=== PATIENT | female | born 1965 | race Caucasian/White ===

== ENCOUNTER 2018-02-03 15:30 | Outpatient (RCR) | payer BC, SELFPAY ==
--- NOTE | 2018-01-07 15:38 | PTTR_ITS ---
DATE: 01/07/18 SUBJECTIVE: Pt reports still feeling band of discomfort and tightness across quad group at proximal end of incision. OBJECTIVE: Manual therapy: (08754a0). STM to quad muscle starting distal and working proximal. High tone noted where pt reported feeling band. Therapeutic procedures (44552v0). * X See flow sheet: Began instruction on equipment setup for eventual transition to [facility]. No changes made to plan today due to pt's increased soreness. * X Provided skilled instruction in proper exercise performance. * X Provided skilled manual cues to facilitate proper muscle recruitment and/ or movement pattern. * X Other: Pt continued program under security trainer supervision Direct treatment time: 30 minutes Total treatment time: 50 minutes
--- NOTE | 2018-01-20 14:30 | PTTR_ITS ---
DATE: 01/20/18 SUBJECTIVE: Has been in horrible pain of 5/10 the past 10 days. Today she is finally feeling better. 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 States she has been doing her HEP, and been swimming. She canceled last week's apt , one due to pain and the other due to day camp conflict. OBJECTIVE: KX applied to all codes N/A Manual therapy: (45867d6). B knee flexion end range stretching. TF and PF mobilizations. ROM R knee: 0-120* Gait: Minimally antalgic, but worsening the more she is on her feet or with fatigue. Strength: R HS 4/5, Quad 5/5, good terminal knee extension. Proprioception: Unstable with R SLS Therapeutic procedures (15594e[]). Completed with link trainer teacher per my direction, due to length of conversation to support and supervisor counseling and guidance patient through her anxiety and symptoms. * x Self Care Training - (70064 x1): Use of ice and over counter meds for pain control. Maintain regularly scheduled strengthening to improve stability and proprioception in her knees. Modify her daily activities as needed - sit down when tired, move around if she has been stationary for a while, be realistic about her demands on her body. Reeducate the importance of strengthening maintnance and compliancy. Direct treatment time: 30 minutes Total treatment time: 30 minutes Assessment: Quin has been struggling from pain increase, clearly related to her increase in activity. This allowed for pain in her new TKR, as well as over strain to the L, old TKR. She has a history of anxiety, and this only encouraged her stress and anxiety to increase her fear that something may be wrong with her knees. After discussing her lack of impairments with her today, her steady progress, and the strain that was caused to her knees with recent activity increase, especially with her lack of compliant strengthening, these were not surprising symptoms. She is demonstrating great ROM, strength is improving, and gait is gaining. Her poor functional performance, gait antalgia, and strain only occurs when she has over done, and I anticipate that as she maintains ther ex compliancy here at the clinic she will be appropriate for discharge in one month's time. Plan: One month of ther ex focused treatment.
--- NOTE | 2018-01-29 15:30 | PTTR_ITS ---
DATE: 01/28/18 SUBJECTIVE: Quin reporting she is quite sore bilateral knees. She is tearful today. Frustrated that she continues to hurt. She has been pretty active at work, UP and down stairs, walking between buildings, she knows this is why she is sore. Manual therapy: (36021i6). Tibiofemoral joint mobs bilateral knees, stretching into knee flexion, patella glides applied on thew R, 0 to 120 degrees knee flexion bilaterally. Performed desensitization massage to the R quadricep musculature and surrounding knee cap. Therapeutic procedures (66429c1). Instruction in therex * x See flow sheet: for open/close chain LE strengthening as well as some proprioception retraining with single leg stance on uneven surfaces with good tolerance. Ends with ice for 10 mins Direct treatment time: 35 mins Total treatment time: 45 mins LB/dl
--- NOTE | 2018-02-03 16:13 | PTTR_ITS ---
DATE: 02/03/18 SUBJECTIVE: Quin stating she is much more comfortable this week. She has been tired after going back to work but less discomfort overall. OBJECTIVE: Therapeutic procedures (64816y7): Brief mobilizations applied to bilateral TF and PF joints, gentle stretching into both flexion and extension bilaterally. * X See flow sheet: For progressive open and closed chain LE strengthening exercises as noted on flow sheet. * X Provided skilled instruction in proper exercise performance: * X Provided skilled manual cues to facilitate proper muscle recruitment and/ or movement pattern: * X Other: Ends with nustep via wellness program and receipt of unattended ice and elevation bilateral knees. Direct treatment time: 35 minutes Total treatment time: 55 minutes Latisha Jhaveri, MEDICAL OFFICE SPECIALIST
== END 2018-02-05 23:59 | disposition home or self-care (01) ==
LOC: PT 15:30
PROVIDERS: PCP Family Medicine; Referring Provider Orthopaedic Surgery; Visit Provider Orthopaedic Surgery
DX: Z47.1 Aftercare following joint replacement surgery (principal); Z96.651 Presence of right artificial knee joint
CPT/HCPCS: 97110; 97140; 97535

== ENCOUNTER 2018-03-23 15:23 | Outpatient (REF) | payer BC, SELFPAY ==
[2018-03-23 16:55] LABS: Cholesterol 203 mg/dL (50-200); HDL Cholesterol 39 mg/dL (40-60); LDL CHOLESTEROL 131 mg/dL (<100); Triglyceride 227 mg/dL (30-150)
== END 2018-03-23 15:43 ==
LOC: NCHCN 15:23
PROVIDERS: PCP Family Medicine; Visit Provider Nurse Practitioner
DX: E78.5 Hyperlipidemia, unspecified (principal)
CPT/HCPCS: 80061; 83721

== ENCOUNTER 2018-04-02 10:21 | Outpatient (REF) | payer BC, SELFPAY ==
--- NOTE | 2018-04-02 08:45 | PAPFT_PTH ---
PATIENT: Quin Santana LOC: [facility] U#:[id number] AGE/SX: 52/F ROOM: RE04/02/[address]: Fiona Duran NP : 1965 BED: DIS: 04/02/2018 SPEC #: [id number] RECD: 04/02/18 12:44 STATUS: ZOHAIB RETaylor #: [id number] FARZANA: 04/02/18 08:[address]: Fiona Duran NP DEPT: [facility] Cytology RECD BY: Beatrice Richmond ENTERED: 04/02/18 12:44 SP TYPE: PAPFT OTHR DR: Bhaskar Morales Tissues: 1 - CX/ENDOCX FOR PAP SMEARS Procedures: PAP THIN PREP/UVM Screening HPV DNA PROBE Comments: [id number]
== END 2018-04-02 10:41 ==
LOC: LBN 10:21
PROVIDERS: PCP Family Medicine; Visit Provider Nurse Practitioner Women's Health
DX: Z12.4 Encounter for screening for malignant neoplasm of cervix (principal); Z11.51 Encounter for screening for human papillomavirus (HPV)
CPT/HCPCS: 88142; 87624

== ENCOUNTER 2018-04-07 00:54 | Outpatient (CLI) | payer BC, SELFPAY ==
--- NOTE | 2018-04-07 08:10 | DI.MAMMO_ITS ---
SYMPTOMS/DIAGNOSIS: SCREENING, Z12.39 MAMMOGRAMS: Mammograms were interpreted according to the usual protocol including computer analysis with CAD system, tomosynthesis and C view imaging. An asymmetric density in the lateral portion of the left breast in comparison with the previous images suggests the possibility of interval development of a region of nodularity or regions of nodularity. Also, on the mediolateral image of the right breast, nodule in the lateral breast tissue could not be entirely excluded. Further evaluation with a spot compression view of bilateral breasts is recommended. SUMMARY: Category 0. Breast density category C. MQSA ASSESSMENT OF FINDINGS: Incomplete: Needs additional imaging evaluation. Category 0. Patient will receive a letter notifying them of these results. Bi-RADS category C. The breasts are heterogeneously dense, which may obscure small masses.
== END 2018-04-07 01:14 ==
PROVIDERS: PCP Family Medicine; Visit Provider Nurse Practitioner
DX: Z12.31 Encounter for screening mammogram for malignant neoplasm of breast (principal); R92.8 Other abnormal and inconclusive findings on diagnostic imaging of breast
CPT/HCPCS: 77063; 77067

== ENCOUNTER 2018-04-20 00:22 | Outpatient (CLI) | payer BC, SELFPAY ==
--- NOTE | 2018-04-20 09:04 | DI.COMBO_ITS ---
SYMPTOMS/DIAGNOSIS: F/U ABNORMAL MAMMO, ? NODULARITY BILATERAL ADDITIONAL VIEWS AND BILATERAL BREAST ULTRASOUND: Additional images are interpreted according to the usual protocol including tomosynthesis and 2D imaging. ADDITIONAL VIEWS OF THE RIGHT BREAST AND RIGHT BREAST ULTRASOUND: Additional views of the right breast fail to show a persistent discrete mass. A right breast ultrasound was performed. The upper inner and upper outer quadrants were evaluated sonographically. No cystic or solid masses are seen. Breast density B. IMPRESSION: No evidence for malignancy. Yearly mammography is recommended on the right breast. Category 1. ADDITIONAL VIEWS AND ULTRASOUND OF THE LEFT BREAST: Additional views of the left breast again show a nodular area in the outer left breast on the craniocaudad view. No associated microcalcifications are seen. It has a similar appearance compared to the prior examinations. A left breast ultrasound was performed. The upper outer and upper inner quadrants were evaluated sonographically. No cystic or solid masses are seen sonographically. IMPRESSION: No definite evidence for malignancy. A six-month follow-up left mammogram is requested for reevaluation. Category 3, breast density B. These findings were discussed with the patient on the date of the examination. MQSA ASSESSMENT OF FINDINGS: Probably benign. Six month follow-up recommended. Category 3. Patient will receive a letter notifying them of these results. MQSA ASSESSMENT OF FINDINGS: Negative. Category 1. Patient will receive a letter notifying them of these results. BI-RADS category B. There are scattered areas of fibroglandular density.
== END 2018-04-20 00:42 ==
PROVIDERS: PCP Family Medicine; Visit Provider Nurse Practitioner
DX: Z12.31 Encounter for screening mammogram for malignant neoplasm of breast (principal); R92.8 Other abnormal and inconclusive findings on diagnostic imaging of breast
CPT/HCPCS: 76642; 77063; 77067

== ENCOUNTER 2018-09-03 01:39 | Outpatient (CLI) | payer BC, SELFPAY ==
--- NOTE | 2018-09-03 12:00 | DI.US_ITS ---
SYMPTOMS/DIAGNOSIS: THYROID NODULE, E04.1, MALIGNANT NEOPLASM OF UPPER OUTER QUADRANT OF BREAST, C50.412 THYROID ULTRASOUND: Routine examination was performed. The right lobe measures 4.8 x 1.8 x 2.0 cm, the left lobe measures 4.1 x 1.5 x 1.6 cm. The isthmus is within normal limits at 0.4 cm. There are three nodules seen in the right lobe of the thyroid gland, the largest is seen inferiorly and is solid. It measures 1.4 x 1.3 x 1.1 cm. There does appear to be some blood flow peripherally. No echogenic foci are seen to suggest calcification. There is a solid 0.4 x 0.3 x 0.3 cm hypoechoic nodule in the mid pole. There is a 0.4 x 0.4 x 0.3 cm mostly cystic avascular nodule in the upper pole of the right lobe of the thyroid gland. On the left, there is a 0.2 x 0.2 x 0.2 cm solid avascular hypoechoic nodule present. There is normal and symmetric blood flow to the thyroid gland. IMPRESSION: Multinodular thyroid gland. The largest is seen in the right lobe as described above.
== END 2018-09-03 01:59 ==
PROVIDERS: PCP Family Medicine; Visit Provider Radiology Radiation Oncology
DX: E04.2 Nontoxic multinodular goiter (principal); C50.412 Malignant neoplasm of upper-outer quadrant of left female breast
CPT/HCPCS: 76536

== ENCOUNTER 2018-10-18 09:30 | Outpatient (CLI) | payer BC, SELFPAY | END 2018-10-18 09:50 | PROVIDERS: PCP Family Medicine; Visit Provider Radiology Radiation Oncology | DX: R91.8 Other nonspecific abnormal finding of lung field (principal) | CPT/HCPCS: 36415; 82565 ==

== ENCOUNTER 2018-10-19 00:51 | Outpatient (CLI) | payer BC, SELFPAY ==
--- NOTE | 2018-10-19 13:15 | DI.CT_ITS ---
SYMPTOMS/DIAGNOSIS: LUNG NODULES, R91.8 CT OF THE CHEST: There are no prior comparison exams for comparison. A CT for radiation treatment planning detected nodules less than 5 mm in the right middle and left lower lobes. Images were performed from the clavicles through the level of the adrenals after IV contrast. There is a fluid collection in the left breast measuring 3.5 x 1.6 cm, presumably a seroma. There are increased opacities anteriorly in the left upper lobe which may be secondary to radiation therapy. A circumscribed 3 mm nodule is seen anteriorly in the left lower lobe near the major fissure likely representing the previously detected nodule. An additional circumscribed nodule is seen in the right middle lobe measuring 4 mm. No additional nodules are identified. The heart size is normal. No pleural or pericardial effusions are seen. There is streak artifact across the thyroid. No nodule is identified. The upper portions of the liver, spleen, kidneys and pancreas as well as adrenals are unremarkable. Degenerative changes are seen in the spine. No lytic or blastic bony lesions are identified. IMPRESSION: 4 mm right middle lobe nodule and 3 mm left lower lobe nodule, likely unchanged when compared with the report for a previous exam of [id number]. The images are not available for direct comparison. A left breast seroma is seen.
== END 2018-10-19 01:11 ==
PROVIDERS: PCP Family Medicine; Visit Provider Family Medicine
DX: R91.8 Other nonspecific abnormal finding of lung field (principal); N64.89 Other specified disorders of breast
CPT/HCPCS: 71260

== ENCOUNTER 2018-10-22 01:04 | Outpatient (CLI) | payer BC, SELFPAY ==
--- NOTE | 2018-10-22 14:00 | DI.MAMMO_ITS ---
SYMPTOM/DIAGNOSIS:DIAGNOSTIC, 6 MO F/U, F/U ABNL MAMMO LEFT MAMMOGRAM: Mammograms were interpreted according to the usual protocol including computer analysis with CAD system, tomosynthesis and C view imaging. The patient is status post left lumpectomy 06/24/18. Comparison is made with exams from 2013, 2015 and 2018. The left breast is composed of scattered fibroglandular densities, breast density, Category B. A biopsy marker clip is seen in the left breast. There is surrounding post lumpectomy scarring. No suspicious masses or suspicious microcalcifications are seen. IMPRESSION: Category 2, negative mammogram with benign findings. Continued 6 month follow up is recommended at which time the patient is due to screening of the right breast. SA ASSESSMENT OF FINDINGS: Negative with benign findings. Category 2. Patient will receive a letter notifying them of these results. BI-RADS category B. There are scattered areas of fibroglandular density.
== END 2018-10-22 01:24 ==
PROVIDERS: PCP Family Medicine; Visit Provider Nurse Practitioner
DX: Z12.31 Encounter for screening mammogram for malignant neoplasm of breast (principal); R92.8 Other abnormal and inconclusive findings on diagnostic imaging of breast; Z98.890 Other specified postprocedural states; N64.89 Other specified disorders of breast
CPT/HCPCS: 77061; 77065; G0279

== ENCOUNTER 2019-03-24 08:51 | Outpatient (REF) | payer BC, SELFPAY ==
[2019-03-24 12:07] LABS: Hemoglobin A1C 6.2 % (4.5-6.2)
[2019-03-24 12:24] LABS: ALT 24 U/L (14-59); AST 14 U/L (15-37); Albumin 3.8 g/dL (3.4-5.0); Alkaline Phosphatase 94 U/L (46-116); Anion Gap 8.7 mmol/L (3-11); BUN 26 mg/dL (7-18); Bilirubin, Total 0.4 mg/dL (0.2-1.0); CO2 29.3 mmol/L (21.0-32.0); CREATININE 0.86 mg/dL (0.55-1.02); Calcium 9.7 mg/dL (8.5-10.1); Calculated LDL 119 mg/dL; Chloride 103 mmol/L (98-107); Cholesterol 189 mg/dL (50-200); Glucose 121 mg/dL (70-100); HDL Cholesterol 37 mg/dL (40-60); Magnesium 1.8 mg/dL (1.8-2.4); Potassium 4.1 mmol/L (3.5-5.1); Sodium 141 mmol/L (136-145); Total Protein 7.4 g/dL (6.4-8.2); Triglyceride 165 mg/dL (30-150)
[2019-03-24 13:24] LABS: Vitamin D 25 Total 20.2 ng/ml (30-100)
== END 2019-03-24 09:11 ==
LOC: NCHCN 08:51
PROVIDERS: PCP Family Medicine; Visit Provider Nurse Practitioner
DX: I10 Essential (primary) hypertension (principal); E78.5 Hyperlipidemia, unspecified; E55.9 Vitamin D deficiency, unspecified; R73.09 Other abnormal glucose
CPT/HCPCS: 80053; 80061; 82306; 83036; 83735

== ENCOUNTER 2019-06-10 03:09 | Outpatient (CLI) | payer BC, SELFPAY ==
--- NOTE | 2019-06-10 14:18 | DI.MAMMO_ITS ---
EXAM: MG MAMMO SCREENING 60 MIN DUR CLINICAL HISTORY: SCREENING, DUCTAL CARCINOMA IN SITU LT BREAST D05.12 TECHNIQUE: Mammograms were interpreted according to the usual protocol including computer analysis w [email or web address] CAD system, tomosynthesis and C-view imaging. COMPARISON: Prior study of 10/22/2018 FINDINGS: The patient reportedly had lumpectomy in June 2018. Post lumpectomy scarring noted in the superio r central portion of the left breast, less prominent than on prior study of 10/22/2018. No new mass or clumped microcalcification seen. IMPRESSION: No specific evidence of malignancy at this time. Routine screening examinations are suggested at yea rly intervals due to the history of breast carcinoma. Category 1, breast density category BI-RADS Cat 1 - Negative Breast Density - Category B - Scattered areas of fibroglandular density
== END 2019-06-10 03:29 ==
PROVIDERS: PCP Family Medicine; Visit Provider Nurse Practitioner
DX: Z12.31 Encounter for screening mammogram for malignant neoplasm of breast (principal); Z85.3 Personal history of malignant neoplasm of breast; Z98.890 Other specified postprocedural states
CPT/HCPCS: 77063; 77067

== ENCOUNTER 2019-11-11 01:24 | Outpatient (CLI) | payer BC, SELFPAY ==
--- NOTE | 2019-11-11 | DI.CT_ITS ---
EXAM: CT CHEST W CLINICAL HISTORY: F/U PULMONARY NODULES,R91.8, TECHNIQUE: COMPARISON: CT CT CHEST W from 10/19/2018 FINDINGS: CT examination of the chest was performed with intravenous infusion of 90 cc of Omnipaque 350. Image s obtained through the upper abdomen show unremarkable appearance of visualized portions liver, splee n, pancreas, adrenals, and kidneys. Abdominal aorta is normal diameter and there is no evidence of aortic dissection. Pulmonary arteries are not ideally opacified but no gross central pulmonary embolus seen. No mediastinal or hilar krish opathy. No pleural effusion or pleural-based mass. Previously noted 4 millimeter right middle lobe nodule and 3 millimeter left lower lobe nodule are un changed comparison with prior chest CT of October 2018. Lungs otherwise appear predominantly clear with some scattered peripheral linear and reticular radiodensities. IMPRESSION: Stable small pulmonary nodules. No additional follow-up recommended in nonsmoker. No evidence of acute process.
[2019-11-11 13:19] LABS: CREATININE 0.81 mg/dL (0.55-1.02)
[2019-11-11] MEDS: Normal Saline Flush 10 ML SYR IVP (14:24)
[2019-11-11] MEDS: Omnipaque 350 MG/ML 100 ML BTL IJ (14:25)
[2019-11-11] MEDS: Normal Saline - Diluent 50 ML VIAL IV (14:26)
== END 2019-11-11 01:44 ==
PROVIDERS: PCP Family Medicine; Visit Provider Nurse Practitioner
DX: R91.8 Other nonspecific abnormal finding of lung field (principal); Z13.89 Encounter for screening for other disorder
CPT/HCPCS: 71260; 82565; J3490

== ENCOUNTER 2020-04-16 16:35 | Outpatient (REF) | payer BC, SELFPAY ==
[2020-04-21 21:20] LABS: Patient Race White; SARS-CoV-2 RNA Undetected (Undetected); SARS-CoV-2 Specimen Source Nasal
== END 2020-04-16 16:55 ==
LOC: NCHCN 16:35
PROVIDERS: PCP Family Medicine; Visit Provider Nurse Practitioner Family
DX: R51.9 Headache, unspecified (principal)
CPT/HCPCS: U0003

== ENCOUNTER 2020-06-12 15:17 | Outpatient (CLI) | payer BC, SELFPAY ==
--- NOTE | 2020-06-12 09:00 | DI.MAMMO_ITS ---
EXAM: MG MAMMO SCREENING 60 MIN DUR CLINICAL HISTORY: breast cancer screening,Z12.39,PERSONAL H/O BREAST CA TECHNIQUE: Bilateral full field digital CC and MLO mammographic images were obtained with 3D tomosyn thesis and utilizing computer aided detection (CAD). COMPARISON: Available for comparison. FINDINGS: Masses/Architectural Distortion: None seen. The patient has had a prior left lumpectomy. Microcalcifications: No suspicious pleomorphic-type are seen. Skin Thickening/Nipple Retraction: None. IMPRESSION: 1. No significant interval change with no specific features of malignancy noted. 2. Unless there is more urgent need, screening mammography is recommended, as per [employer] guidelines. BI-RADS Category 2 - Benign Findings Breast Density - Category B - Scattered areas of fibroglandular density Breast density category C or D implies that the patient has dense breast tissue. Dense breast tissue is very common and is not abnormal but dense breast tissue can make it harder to find cancer on a ma mmogram. Also, dense breast tissue may increase their breast cancer risk. This information about the result of the mammogram report was provided to the patient to raise their awareness. Use this report when you speak with the patient about their risks for breast cancer, which includes their family hist ory. At that time, you may recommend for more screening tests (Ultrasound or MRI) as they might be us eful based on their risk. A negative radiographic report should not delay biopsy if a dominant or clinically suspicious mass is present. Up to ten percent of cancers are not identified on mammography. A negative report may reinforce clinical impression. Adenosis and dense breasts may obscure an underlying neoplasm. False positive reports average 6 to 10%. Patient will receive a letter notifying them of these results.
== END 2020-06-12 15:37 ==
PROVIDERS: PCP Family Medicine; Visit Provider Nurse Practitioner Women's Health
DX: Z12.31 Encounter for screening mammogram for malignant neoplasm of breast (principal); Z85.3 Personal history of malignant neoplasm of breast
CPT/HCPCS: 77063; 77067

== ENCOUNTER 2020-07-09 04:27 | Outpatient (CLI) | payer BC, SELFPAY ==
[2020-07-09 16:47] LABS: FREE T4 0.95 ng/dL (0.76-1.46); TSH 2.35 uIU/mL (0.36-3.74)
== END 2020-07-09 04:47 ==
PROVIDERS: PCP Family Medicine; Visit Provider Internal Medicine
DX: E03.9 Hypothyroidism, unspecified (principal)
CPT/HCPCS: 36415; 84439; 84443

== ENCOUNTER 2020-09-17 08:04 | Outpatient (REF) | payer BC, SELFPAY ==
[2020-09-17 13:30] LABS: Hemoglobin A1C 7.1 % (<5.7)
[2020-09-17 13:37] LABS: ALT 63 U/L (14-59); AST 27 U/L (15-37); Albumin 3.9 g/dL (3.4-5.0); Alkaline Phosphatase 113 U/L (46-116); Anion Gap 10.4 mmol/L (3-11); BUN 19 mg/dL (7-18); Bilirubin, Total 0.4 mg/dL (0.2-1.0); CO2 28.6 mmol/L (21.0-32.0); CREATININE 0.8 mg/dL (0.55-1.02); Calcium 9.5 mg/dL (8.5-10.1); Calculated LDL 100 mg/dL (<100); Chloride 104 mmol/L (98-107); Cholesterol 176 mg/dL (<200); Glucose 174 mg/dL (74-106); HDL Cholesterol 32 mg/dL (40-60); Sodium 143 mmol/L (136-145); Triglyceride 222 mg/dL (<150)
[2020-09-17 13:50] LABS: Vitamin D 25 Total 20.7 ng/mL (30-100)
== END 2020-09-17 08:05 | disposition home or self-care (01) ==
LOC: NCHCN 08:04
PROVIDERS: PCP Family Medicine; Visit Provider Nurse Practitioner
DX: E04.1 Nontoxic single thyroid nodule (principal); Z68.43 Body mass index [BMI] 50.0-59.9, adult; I10 Essential (primary) hypertension; R73.03 Prediabetes; E55.9 Vitamin D deficiency, unspecified; E78.5 Hyperlipidemia, unspecified
CPT/HCPCS: 80053; 80061; 82306; 83036; 84443

== ENCOUNTER 2020-12-17 09:14 | Outpatient (CLI) | payer BC, SELFPAY ==
--- NOTE | 2020-12-17 08:25 | DI.RAD_ITS ---
Exam(s) XR KNEE LT 4V AP,LAT,CARMEN,PAT EXAM: XR KNEE LT 4V AP,LAT,CARMEN,PAT CLINICAL HISTORY: LEFT KNEE PAIN. TECHNIQUE: 2D digital imaging was performed. COMPARISON: CR LEFT KNEE LIMITED 1 OR 2 VIEWS from 07/10/2016 FINDINGS: There is no evidence of fracture. No loosening evident. However, on the standing weight-bearing view there is significant narrowing of the distance between t he femoral and tibial components in the medial aspect of the joint space now evident. IMPRESSION: Significant narrowing of the medial aspect of the joint space DATA REPOSITORY: RADIATION DOSE DELIVERED:
--- OUTSIDE RECORDS SUMMARY | 2020-12-17 09:16 | XMS_ITS ---
:1965 Author Care Team Providers Name Role Phone CATHRYN LEE Primary Care Provider [phone] Allergies Code Code System Name Reaction Severity Status Onset Insect Venom ? ? Active ? 6211 RxNorm Lactose ? ? Active ? Penicillins ? ? Active ? 652408 RxNorm Poison Dalia ? ? Active ? Extract Seasonale (91) ? ? Active ? Medications Name Status Start Date Stop Date ? ? alprazolam 0.5 mg disintegrating tablet Active ? Not available Take 1 tablet as needed by oral route. atorvastatin 40 mg tablet Active ? Not av ailable Take 1 tablet every day by oral route. benazepril 10 mg tablet Active ? Not avai lable Take 1 tablet every day by oral route. black cohosh 40 mg tablet Active ? Not av ailable Take by oral route. Celexa 20 mg tablet Active ? Not availabl e Take 1 tablet every day by oral route. cetirizine 10 mg capsule Active ? Not faye ilable Take by oral route. EpiPen Active ? Not available Fish Oil Active ? Not available fluoxetine 60 mg tablet Completed ? 07/07/19 20 Take 1 tablet every day by oral route. hydrochlorothiazide 25 mg tablet Active ? Not available Take 1 tablet every day by oral route. hydrochlorothiazide 50 mg tablet Completed ? 07/07/2019 Take 1 tablet every day by oral route. mvi, adult no.1 with vit K Active ? Not a vailable omeprazole 20 mg capsule,delayed release Active ? Not available Take 1 capsule every day by oral route. Symbicort 80 mcg-4.5 mcg/actuation HFA aerosol inhaler Active ? Not available Inhale 2 puffs twice a day by inhalation route. Ventolin 90 mcg/actuation aerosol inhaler Active ? Not available Inhale 1 puff as needed by inhalation route. zolpidem 5 mg tablet Completed ? 08/11/2019 take 1-2 PO night of sleep study if needed Problems Name Status Onset Date Source ? Intraductal Carcinoma in Situ of Breast Active 07/01/19 20 ? Hyperlipidemia Active 07/01/2019 ? Anxiety Active 07/01/2019 ? Visual Impairment Active 07/01/2019 ? Hypertensive Disorder Active 07/01/2019 ? Asthma Active 07/01/2019 ? Gastroesophageal Reflux Disease Active 07/01/2019 ? Osteoarthritis Active 07/01/2019 ? Abnormal Glucose Level Active 07/01/2019 ? History of Calculus of Kidney Active 07/01/2019 ? Screening for Malignant Neoplasm of Skin Active 020 ? Body Mass Index 40+ - Severely Obese Active 07/01/2019 ? At Risk of Apnea Active 07/01/2019 ? Intolerance to Lactose Active 07/01/2019 ? Insomnia Active 07/07/2019 ? Obstructive Sleep Apnea Syndrome Active ? ? Procedures None recorded. Results Lab Results None recorded. Past Encounters 02/02/2020 Obstructive Sleep Apnea Syndrome; Insomn ia Neeru Cooper [employer]: [address] [place] [phone], Ph. 11/22/2019 Insomnia; Obstructive Sleep Apnea Syndro me Neeru Cooper [employer]: [address] [place] [phone], Ph. 09/26/2019 Obstructive Sleep Apnea Syndrome; Insomn ia Neeru Cooper [employer]: [address] [place] [phone], Ph. 08/11/2019 Obstructive Sleep Apnea Syndrome Neeru Cooper [employer]: [address] [place] [phone], Ph. 07/07/2019 Obstructive Sleep Apnea Syndrome; Insomn ia Neeru Cooper NP: [address] [place] [phone], Ph. Social History Tobacco Smoking Status Never Smoker Vaccine List None recorded. Plan of Care Reminders Provider Appointments None ? ? recorded. Lab None ? ? recorded. Referral None ? ? recorded. Procedures None ? ? recorded. Surgeries None ? ? recorded. Imaging None ? ? recorded. Vitals 02/02/2020 03:45PM Office 30 Height Weight BMI 154.94 cm 140.61 kg 58.6 kg/m2 11/22/2019 09:00AM Procedure 60 Height Weight BMI Blood Pressure 154.94 cm 140.84 kg 58.7 kg/m2 142/84 mm[Hg] 09/26/2019 11:15AM Office 30 Height Weight BMI 154.94 cm 129.27 kg 53.8 kg/m2 08/11/2019 03:30PM Office 30 Height Weight BMI Blood Pressure 154.94 cm 128.37 kg 53.5 kg/m2 132/72 mm[Hg] 07/07/2019 02:45PM New Patient 45 Height Weight BMI Blood Pressure 154.94 cm 134.63 kg 56.1 kg/m2 128/72 mm[Hg]
== END 2020-12-17 09:15 | disposition home or self-care (01) ==
LOC: DIORS 09:14
PROVIDERS: PCP Family Medicine; Referring Provider Family Medicine; Visit Provider Student in an Organized Health Care Education/Training Program
DX: M25.562 Pain in left knee (principal); Z96.652 Presence of left artificial knee joint
CPT/HCPCS: 73564

== ENCOUNTER 2022-01-03 19:12 | Outpatient (REF) | payer BC, SELFPAY ==
[2022-01-05 14:14] LABS: COVID-19 RT-PCR UVMMC Result Negative (Negative)
== END 2022-01-03 19:13 | disposition home or self-care (01) ==
LOC: LBN 19:12
PROVIDERS: PCP Family Medicine; Visit Provider Physician Assistant Medical
DX: J02.9 Acute pharyngitis, unspecified (principal); Z20.822 Contact with and (suspected) exposure to COVID-19
CPT/HCPCS: U0003; 87070

== ENCOUNTER 2022-01-29 16:16 | Outpatient (REF) | payer BC, SELFPAY ==
[2022-01-29 21:46] LABS: HCT 34.4 % (36.0-46.0); MCH 26.2 pg (27.0-33.0); MCV 82 fL (80-95); MPV 11.4 fL (8.0-11.0); Platelet Count 298 10^3/uL (130-400); RDW 15.8 % (11.7-14.6); RDW-SD 46.9 fL; WBC 5.65 10^3/uL (4.4-10.8)
[2022-01-29 22:06] LABS: Iron 68 ug/dL (50-170); Total Iron Binding Capacity 398 ug/dL (250-450); Transferrin Sat 17 % (15-50)
[2022-01-29 22:12] LABS: ALT 37 U/L (14-59); AST 21 U/L (15-37); Albumin 4.1 g/dL (3.4-5.0); Alkaline Phosphatase 87 U/L (46-116); Anion Gap 10.8 mmol/L (3-11); BUN 22 mg/dL (7-18); Bilirubin, Total 0.5 mg/dL (0.2-1.0); CO2 27.2 mmol/L (21.0-32.0); CREATININE 0.9 mg/dL (0.55-1.02); Calcium 9.6 mg/dL (8.5-10.1); Chloride 104 mmol/L (98-107); Glucose 137 mg/dL (74-106); Sodium 142 mmol/L (136-145)
[2022-01-30 05:24] LABS: Vitamin D 25 Total 22.9 ng/mL (30-100)
== END 2022-01-29 16:17 | disposition home or self-care (01) ==
LOC: NCHCN 16:16
PROVIDERS: PCP Family Medicine; Visit Provider Family Medicine
DX: D64.9 Anemia, unspecified (principal); R74.8 Abnormal levels of other serum enzymes; E55.9 Vitamin D deficiency, unspecified
CPT/HCPCS: 80053; 82306; 85027; 83540; 83550

== ENCOUNTER 2022-10-06 16:23 | Outpatient (REF) | payer BC, SELFPAY ==
[2022-10-06 14:58] LABS: HCT 38.2 % (36.0-46.0); MCH 27.1 pg (27.0-33.0); MCHC 31.4 % (32.0-36.0); MCV 86 fL (80-95); Platelet Count 260 10^3/uL (130-400); RBC 4.43 10^6/uL (3.93-5.22); RDW 14.7 % (11.7-14.6); RDW-SD 46.8 fL; WBC 6.35 10^3/uL (4.4-10.8)
[2022-10-06 16:03] LABS: Hemoglobin A1C 6.7 % (<5.7)
[2022-10-06 16:05] LABS: ALT 52 U/L (14-59); AST 25 U/L (15-37); Albumin 4.3 g/dL (3.4-5.0); Alkaline Phosphatase 104 U/L (46-116); BUN 22 mg/dL (7-18); Bilirubin, Total 0.4 mg/dL (0.2-1.0); Calcium 10.1 mg/dL (8.5-10.1); Chloride 103 mmol/L (98-107); Estimated GFR 65.71 (mL/min/1.73m2); Glucose 133 mg/dL (74-106); Potassium 3.9 mmol/L (3.5-5.1); Sodium 141 mmol/L (136-145); Total Protein 7.6 g/dL (6.4-8.2); Vitamin B12 462 pg/mL (193-986)
[2022-10-06 16:42] LABS: Folate > 20.0 ng/mL (8.6-20.0)
[2022-10-06 17:44] LABS: Vitamin D 25 Total 23.3 ng/mL (30-100)
== END 2022-10-06 16:24 | disposition home or self-care (01) ==
LOC: NCHCN 16:23
PROVIDERS: PCP Family Medicine; Visit Provider Family Medicine
DX: D64.9 Anemia, unspecified (principal); R73.03 Prediabetes; I10 Essential (primary) hypertension; R74.8 Abnormal levels of other serum enzymes; E55.9 Vitamin D deficiency, unspecified
CPT/HCPCS: 80053; 82306; 85027; 82607; 82746; 83036

== ENCOUNTER 2023-09-28 14:51 | Outpatient (REF) | payer BC, SELFPAY ==
[2023-09-28 15:27] LABS: Abs Immature Grans 0.02 10^3/uL (0.0-0.06); Absolute Basophil Count 0.04 10^3/uL (0.0-0.2); Absolute Eosinophil Count 0.25 10^3/uL (0.0-0.7); Absolute Lymphocyte Count 1.58 10^3/uL (1.2-3.4); Absolute Monocyte Count 0.51 10^3/uL (0.1-0.8); Basophils % 0.6; HCT 35.6 % (36.0-46.0); HGB 11.2 g/dL (11.2-15.7); Immature Grans % 0.3; Lymphocytes % 25.1; MCH 27.5 pg (27.0-33.0); MCHC 31.5 % (32.0-36.0); MCV 88 fL (80-95); MPV 10.7 fL (8.0-11.0); Monocytes % 8.1; Neutrophils % 61.9; Platelet Count 277 10^3/uL (130-400); RBC 4.07 10^6/uL (3.93-5.22); RDW 14.8 % (11.7-14.6); RDW-SD 47.8 fL
[2023-09-28 15:49] LABS: ALT 30 U/L (14-59); AST 13 U/L (15-37); Albumin 4.1 g/dL (3.4-5.0); Alkaline Phosphatase 101 U/L (46-116); BUN 20 mg/dL (7-18); Bilirubin, Total 0.3 mg/dL (0.2-1.0); CREATININE 0.6 mg/dL (0.55-1.02); Chloride 107 mmol/L (98-107); Estimated GFR 103.98 (mL/min/1.73m2); Glucose 110 mg/dL (74-106); Potassium 4.3 mmol/L (3.5-5.1); Sodium 144 mmol/L (136-145); TSH (W/Ref FT4) 1.52 uIU/mL (0.36-3.74); Total Protein 6.8 g/dL (6.4-8.2)
[2023-09-28 16:30] LABS: Vitamin D 25 Total 30.7 ng/mL (30-100)
== END 2023-09-28 14:52 | disposition home or self-care (01) ==
LOC: NCHCN 14:51
PROVIDERS: PCP Family Medicine; Visit Provider Student in an Organized Health Care Education/Training Program
DX: Z01.419 Encounter for gynecological examination (general) (routine) without abnormal findings (principal); Z85.3 Personal history of malignant neoplasm of breast; N95.1 Menopausal and female climacteric states; Z12.4 Encounter for screening for malignant neoplasm of cervix; E55.9 Vitamin D deficiency, unspecified; I10 Essential (primary) hypertension
CPT/HCPCS: 80053; 82306; 84443; 85025

== ENCOUNTER 2023-09-29 12:47 | Outpatient (REF) | payer BC, SELFPAY ==
--- NOTE | 2023-09-29 11:45 | PAPFT_PTH ---
PATIENT: Quin Santana LOC: [facility] U#:[id number] AGE/SX: 58/F ROOM: RE09/29/[address]: Fiona Duran NP : 1965 BED: DIS: 09/29/2023 SPEC #: [id number] RECD: 09/29/23 13:21 STATUS: ZOHAIB RUIZ #: [id number] FARZANA: 09/29/23 11:[address]: Fiona Duran NP DEPT: [facility] Cytology RECD BY: Beatrice Richmond ENTERED: 09/29/23 13:22 SP TYPE: PAPFT OTHR DR: Bhaskar Morales Tissues: 1 - CX/ENDOCX FOR PAP SMEARS Procedures: PAP THIN PREP/UVM Screening HPV DNA PROBE Comments: [id number]
== END 2023-09-29 12:48 | disposition home or self-care (01) ==
LOC: LBN 12:47
PROVIDERS: PCP Family Medicine; Visit Provider Nurse Practitioner Women's Health
DX: Z12.4 Encounter for screening for malignant neoplasm of cervix (principal); Z11.51 Encounter for screening for human papillomavirus (HPV)
CPT/HCPCS: 88142; 87624

== ENCOUNTER 2024-04-14 09:50 | Emergency (ER) | payer BC, SELFPAY ==
[2024-04-14 10:00] VITALS: BP 115/82; PULSE 108; RESP 18; TEMP 36.6; O2SAT 98
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
--- OUTSIDE RECORDS SUMMARY | 2024-04-14 10:35 | XMS_ITS | Encounter Summary ---
Author Organization [facility] Address [address] [place] [address] Care Team Providers Care Bander Hand Name Role Phone Unknown, Provider Primary Care Provider Unava ilable Encounter Details Date Type Department Care Team (Late st Contact Info) Description 01/03/2022 Lab Requisition [facility] Pathology & Laboratory Medicine - [address] [address] Outr Resulting Lab, Provider Social History Tobacco Use Types Packs/Day Years Used Date Smoking Tobacco: Never Assessed Sex and Gender Information Value Date Recorded Sex Assigned at Not on file Gender Identity Not on file Sexual Orientation Not on file documented as of this encounter Plan of Treatment Not on file documented as of this encounter Procedures Procedure Name Priority Date/Time Associated Diagnosis Comments ZZCOVID-19 TEST [facility] PCR Today 01/03/2022 15:43 EDT COVID-19 TESTING Routine 01/03/2022 15:4 3 EDT documented in this encounter Results * COVID-19 TEST [facility] PCR (01/03/2022 15:43 EDT) Swab 01/03/2022 15:4 3 EDT 01/04/2022 21:25 EDT Provider Outr Resulting Lab MICROBIOLOGY - GENERAL ORDERABLES [facility] [address] [place] [address] * COVID-19 TESTING (01/03/2022 15:43 EDT) COVID-19 rt-PCR Result Negative Negative 01/05/2022 14:08 EDT [facility] Comment: This test has not been FDA cleared or approved. This test has been authorized by FDA under an EUA for use by authorized laboratories. This test has been authorized only for detection of nucleic acid from 2019-nCoV, not for any other viruses or pathogens. This test is only authorized for the duration of the declaration that circumstances exist justifying the authorization of emergency use of in vitro diagnostic tests for detection and/or diagnosis of 2019-nCoV under section 564(b)(1) of Act, 21 U.S.C ?? 360bbb-3(b) (1), unless the authorization is terminated or revoked sooner. Negative results do not preclude 2019-nCoV infection and should not be used as the sole basis for treatment or other patient management decisions. Negative results must be combined with clinical observations, patient history, and epidemiological information. Testing was performed using the virgil SARS-CoV-2 assay ([employer] on the Virgil 6800 System Performing Lab Virgil 6800 [facility] 01/05/2022 14:08 EDT [facility] Swab 01/03/2022 15:4 3 EDT 01/04/2022 21:25 EDT Provider Outr Resulting Lab MICROBIOLOGY - GENERAL ORDERABLES [facility] [address] [place] [address] documented in this encounter Visit Diagnoses Not on filedocumented in this encounter Care Teams Bander Hand Relationship Specialty Start Date End Date Unknown, Provider, PCP - General 03/11/13 documented as of this encounter
--- OUTSIDE RECORDS SUMMARY | 2024-04-14 10:35 | XMS_ITS | Encounter Summary ---
Author Organization [facility] Address [address] [place] [address] Care Team Providers Care It Service Delivery Manager Name Role Phone Unknown, Provider Primary Care Provider Unava ilable Encounter Details Date Type Department Care Team (Late st Contact Info) Description 04/02/2018 Results Only [facility] [phone] Celsa Barcenas, VP PROJECT [address] [place] [phone] Social History Tobacco Use Types Packs/Day Years Used Date Smoking Tobacco: Never Assessed Sex and Gender Information Value Date Recorded Sex Assigned at Not on file Gender Identity Not on file Sexual Orientation Not on file documented as of this encounter Plan of Treatment Not on file documented as of this encounter Procedures Procedure Name Priority Date/Time Associated Diagnosis Comments PAP TEST- RESULT ONLY Routine 04/02/2018 0:00 EDT documented in this encounter Results * PAP TEST- RESULT ONLY (04/02/2018 0:00 EDT) Pathology Report: CYTOPATHOLOGY REPORT Reports generated via electronic interface contain original data; however they are lacking the format of the original report. Caution should be taken when reading/interpreti ng unformatted reports. Name: ? LESLY LUNA ? Accession #: ? [id number] ? : ? 1965 (Age: 52) ??F ?Collect Date: ? 04/02/2018 ? Location: ? [facility] ? Receive Date: ? 04/05/2018 ? Provider: CELSA BARCENAS APRN Copy to: MARK MARTINEZ MD ? Final Report SPECIMEN ADEQUACY ? Satisfactory for Evaluation - transformation zone component present GENERAL CATEGORIZATION ? Negative for Intraepithelial Lesion or Malignancy ?? Last Menstrual Period: 03/29/18 Menstrual/Pregnanc y Status: ??Perimenopausal Specimen/Source: ??Pap Test, Cervix, ThinPrep Imaging System with manual evaluation Document reviewed and electronically signed by: ? Rachel Orona, [facility](ASCP) ? Report ??Date: 04/13/2018 08:58 HPV with Pap Test ? Date Ordered: ? 04/13/2018 ? Status: ?? Signed Out ?Date Complete: ? 04/14/2018 ? By: ??System Interface ? Date Reported: ? 04/14/2018 ? Interpretation RESULT: Negative for HPV. No E6 or E7 mRNA is detected from HPV types 16,18,31,33,35, 39,45,51,52,56,58, 59,66, and 68 by flatbed company driver mediated amplification. Comments Document reviewed and electronically signed by: ? System Interface ? Report date: 04/14/2018 By the signature above, the attending physician certifies that he/she has personally conducted a gross and/or microscopic examination of the described specimens and rendered or confirmed the above diagnosis. End of Report [facility] 04/02/2018 04/05/2018 Celsa Barcenas APRN PATHOLOGY ORDERAB LES [facility] [address] [place] [address] documented in this encounter Visit Diagnoses Not on filedocumented in this encounter Care Teams It Service Delivery Manager Relationship Specialty Start Date End Date Unknown, Provider, PCP - General 03/11/13 documented as of this encounter
--- OUTSIDE RECORDS SUMMARY | 2024-04-14 10:35 | XMS_ITS | Referral Summary ---
Author Organization [facility] Address [address] [place] [address] Care Team Providers Care Tax Preparer Name Role Phone Unknown, Provider Primary Care Provider Unava ilable Social History Tobacco Use Types Packs/Day Years Used Date Smoking Tobacco: Never Assessed Sex and Gender Information Value Date Recorded Sex Assigned at Not on file Gender Identity Not on file Sexual Orientation Not on file Plan of Treatment Not on file Care Teams Tax Preparer Relationship Specialty Start Date End Date Unknown, ProviderMD PCP - General 03/11/13
--- OUTSIDE RECORDS SUMMARY | 2024-04-14 10:35 | XMS_ITS | Clinical Summary ---
Author Organization [facility] Address [address] [place] [address] Care Team Providers Care Staple Laster Name Role Phone Unknown, Provider Primary Care Provider Unava ilable Social History Tobacco Use Types Packs/Day Years Used Date Smoking Tobacco: Never Assessed Sex and Gender Information Value Date Recorded Sex Assigned at Not on file Gender Identity Not on file Sexual Orientation Not on file Plan of Treatment Health Maintenance Due Date Last Done Comments Hepatitis C Screen 1965 Hepatitis B Vaccine (1 of 3 - 19+ 3-dose series) 09/25 COVID-19 Vaccine (2022-24 season) 2023 Care Teams Staple Laster Relationship Specialty Start Date End Date Unknown, Provider, PCP - General 03/11/13
--- OUTSIDE RECORDS SUMMARY | 2024-04-14 10:35 | XMS_ITS | Encounter Summary ---
Author Organization [facility] Address [address] [place] [address] Care Team Providers Care Optical Element Coater Name Role Phone Unknown, Provider Primary Care Provider Unava ilable Encounter Details Date Type Department Care Team (Late st Contact Info) Description 09/30/2023 Lab Requisition [facility] Pathology & Laboratory Medicine - [address] [address] Fiona Duran, CENTRIFUGAL SUPERVISOR [address] [place] [address] Encounter for other general examination Social History Tobacco Use Types Packs/Day Years Used Date Smoking Tobacco: Never Assessed Sex and Gender Information Value Date Recorded Sex Assigned at Not on file Gender Identity Not on file Sexual Orientation Not on file documented as of this encounter Plan of Treatment Not on file documented as of this encounter Procedures Procedure Name Priority Date/Time Associated Diagnosis Comments PAP TEST Today 09/29/2023 11:45 EDT Encounter for other general examination HPV DNA DETECTION WITH GENOTYPING, PCR Today 09/29/2023 11:45 EDT Encounter for other general examination documented in this encounter Results * HUMAN PAPILLOMAVIRUS (HPV) DETECTION-HIGH RISK TYPES (09/29/2023 11:45 EDT) HPV other High Risk types, PCR Negative Negative 10/06/2023 17:[address] [facility] Comment:No E6 or E7 mRNA is detected from HPV types 16,18,31,33,35,39,45,51,52,56,58,59,66, and 68 by manager functional mediated amplification. Pap Test CERVIX UTERI STRUCTURE / Unknown 09/29/2023 11:45 EDT 10/05/2023 15:18 EDT Fiona Duran APRN MICROBIOLOGY - GE NERAL ORDERABLES [facility] [address] [place] [address] * PAP TEST (09/29/2023 11:45 EDT) Specimens A. Cervix and/or Endocervix , ThinPrep Imaging System with Manual Evaluation 10/06/2023 17:[address] [facility] Specimen Adequacy Satisfactory for Evaluation - transformation zone component absent 10/06/2023 17:[address] [facility] General Categorization Negative for intraepithelial lesion or malignancy 10/06/2023 17:[address] [facility] Attestation . 10/06/2023 17:[address] [facility] at 1745 Clinical History SEE BELOW 10/06/19 24 17:[address] [facility] HPV The result for the Human Papillomavirus (HPV) Detection-High Risk Types is Negative. No E6 or E7 mRNA is detected from HPV types 16,18,31,33,35,39 ,45,51,52,56,58,5 9,66, and 68 by manager functional mediated amplification.Melinda ting was performed on specimen [id number] and was resulted on 10/06/2023 1745 EDT by DORI, LAB INSTRUMENT RESULTS IN 10/06/2023 17:[address] [facility] Performing Lab [facility] 10/06/2023 17:[address] [facility] Scanned Images 10/06/2023 17:[address] [facility] Pap Test CERVIX UTERI STRUCTURE / Unknown 09/29/2023 11:45 EDT 09/30/2023 12:57 EDT Fiona Duran APRN PATHOLOGY ORDERAB LES [facility] [address] [place] [address] documented in this encounter Visit Diagnoses Diagnosis Encounter for other general examination documented in this encounter Care Teams Optical Element Coater Relationship Specialty Start Date End Date Unknown, Provider, PCP - General 03/11/13 documented as of this encounter
--- OUTSIDE RECORDS SUMMARY | 2024-04-14 10:35 | XMS_ITS | Encounter Summary ---
Author Organization [facility] Address [address] [place] [address] Care Team Providers Care Service Vehicle Operator Name Role Phone Unknown, Provider Primary Care Provider Unava ilable Encounter Details Date Type Department Care Team (Late st Contact Info) Description 03/09/2013 Results Only [facility] Laboratory Services - [facility] [address], [place] [id number] Bree Suarez NP [address] [place] [address] Social History Tobacco Use Types Packs/Day Years [...] Diagnosis Comments PAP TEST- RESULT ONLY Routine 03/09/2013 0:00 EDT documented in this encounter Results * PAP TEST- RESULT ONLY (03/09/2013 0:00 EDT) Pathology Report: CYTOPATHOLOGY REPORT Reports generated via electronic interface contain original data; however they are lacking the format of the original report. Caution should be taken when reading/interpreti ng unformatted reports. Name: ? LESLY SANTANA ? Accession #: ? [id number] ? : ? 1965 (Age: 47) ??F ?Collect Date: ? 03/09/2013 ? Location: ? [facility] ? Receive Date: ? 03/11/2013 ? Provider: BREE SUAREZ NP Copy to: ? Final Report SPECIMEN ADEQUACY ? Satisfactory for Evaluation - transformation zone component present GENERAL CATEGORIZATION ? Negative for Intraepithelial Lesion or Malignancy ?? Last Menstrual Period: 03/03/13 Specimen/Source: ??Pap Test, Cervix/Endocervix, ThinPrep Imaging System with manual evaluation Document reviewed and electronically signed by: ? GWYN Branch(ASCP) ? Report ??Date: 03/16/2013 10:31 HPV with Pap Test ? Date Ordered: ? 03/16/2013 ? Status: ?? Signed Out ?Date Complete: ? 03/18/2013 ? By: ??System Interface ? Date Reported: ? 03/18/2013 ? Interpretation RESULT: Negative for HPV. No E6 or E7 mRNA is detected from HPV types 16,18,31,33,35, 39,45,51,52,56,58, 59,66, and 68 by animated cartoons painter mediated amplification. Comments Document reviewed and electronically signed by: ? System Interface ? Report date: 03/18/2013 By the signature above, the attending physician certifies that he/she has personally conducted a gross and/or microscopic examination of the described specimens and rendered or confirmed the above diagnosis. End of Report [facility] 03/09/2013 03/11/2013 Bree Suarez NP PATHOLOGY ORDERABLES [facility] [address] [place] [address] documented in this encounter Visit Diagnoses Not on filedocumented in this encounter Care Teams Service Vehicle Operator Relationship Specialty Start Date End Date Unknown, Provider, PCP - General 03/11/13 documented as of this encounter
[2024-04-14] MEDS: Acetaminophen 325 MG TAB 650 MG PO (10:36)
--- OUTSIDE RECORDS SUMMARY | 2024-04-14 10:36 | XMS_ITS | Encounter Summary ---
Author Organization [facility] [place] [address] Care Team Providers Care Wireless Sales Associate Name Role Phone Bhaskar Morales MD Primary Care Provider [phone] Encounter Details Date Type Department Care Team (Latest Contact Info) Description 05/15/2023 Travel Social History Tobacco Use Types Packs/Day Years Used Date Smoking Tobacco: Never Smokeless Tobacco: Never Alcohol Use Standard Drinks/Week Comments Never 0 (1 standard drink = 0.6 oz pur e alcohol) Sex and Gender Information Value Date Recorded Sex Assigned at Female 07/24/2020 2:32 PM EST Gender Identity Not on file Sexual Orientation Straight 07/24/2020 2: 32 PM EST documented as of this encounter Plan of Treatment Upcoming Encounters Date Type Department Care Team (Late st Contact Info) Description 05/30/2024 10:00 AM EST Appointment Mammography/[place] [address] Alicia Quinteros MD [facility] [place] [address] 08/11/2024 4:15 PM EST Office Visit Dermatology at [address] [place] [phone] Jhon Giron MD [address], [place] [address] 11/21/2024 2:00 PM EDT Office Visit Radiation Oncology at [address] [phone] Alicia Quinteros MD [facility] [place] [address] 10/06/2029 Hospital Encounter [place] [address] Al Mendez MD [facility] [place] [address] Scheduled Procedures Name Priority Associated Diagnoses Date/Ti me @TOTAL KNEE REVISION ARTHROP LASTY, COMPLETE (WRVU 27.11) Instability Right TKA MODIFIER,GMK REVISION KNEE,MEDACTA Instability Right TKA documented as of this encounter Visit Diagnoses Not on filedocumented in this encounter Care Teams Wireless Sales Associate Relationship Specialty Start Date End Date Bhaskar Morales MD PCP - General Family Medicine 12/18/20 documented as of this encounter
--- OUTSIDE RECORDS SUMMARY | 2024-04-14 10:36 | XMS_ITS | Encounter Summary ---
Author Organization [facility] [place] [address] Care Team Providers Care Hydraulic Miner Blasting Name Role Phone Bhaskar Morales MD Primary Care Provider Encounter Details Date Type Department Care Team (Latest Contact Info) Description 07/30/2023 Travel Social History Tobacco Use Types Packs/Day [...] 05/30/2024 10:00 AM EST Appointment Mammography/[place] [address] Alicia Quinteros MD [facility] [place] [address] 08/11/2024 4:15 PM EST Office Visit Dermatology at [address] [place] [phone] Jhon Giron MD [address], [place] [address] 11/21/2024 2:00 PM EDT Office Visit Radiation Oncology at [address] [phone] Alicia Quinteros MD [facility] [place] [address] 10/06/2029 Hospital Encounter [place] [address] Al Mendez MD [facility] [place] [address] Scheduled Procedures Name Priority Associated Diagnoses Date/Ti me @TOTAL KNEE REVISION ARTHROP LASTY, COMPLETE (WRVU 27.11) Instability Right TKA MODIFIER,GMK REVISION KNEE,MEDACTA Instability Right TKA documented as of this encounter Visit Diagnoses Not on filedocumented in this encounter Care Teams Hydraulic Miner Blasting Relationship Specialty Start Date End Date Bhaskar Morales MD PCP - General Family Medicine 12/18/20 documented as of this encounter
--- OUTSIDE RECORDS SUMMARY | 2024-04-14 10:36 | XMS_ITS | Encounter Summary ---
Author Organization [place] [address] Care Team Providers Care Head Of English Name Role Phone Bhaskar Morales MD Primary Care Provider [phone] Encounter Details Date Type Department Care Team (Latest Contact Info) Description 12/23/2022 2:31 PM EDT - 12/23/2022 11:59 PM EDT Hospital Encounter Mammography[place] [phone] Alicia Quinteros MD [facility] [place] [address] Breast cancer screening by mammogram Discharge Disposition: Home Social History Tobacco Use Types Packs/Day Years [...] PM EST documented as of this encounter Medications at Time of Discharge Medication Sig Dispensed Refills Start Date End Date ibuprofen/acetaminophen (ADVIL DUAL ACTION ORAL) Take by mouth. venlafaxine XR (Effexor-XR) 37.5 mg ER 24 hr capsule Take 150 mg by mouth daily. 10/17/2022 metFORMIN (Glucophage) 500 mg Tablet TAKE ONE TABLET BY MOUTH EVERY DAY 12/19/2020 lamoTRIgine (LaMICtal) 25 mg Tablet Take 50 mg by mouth 2 times daily. atorvastatin (Lipitor) 40 mg Tablet Take 40 mg by mouth nightly. Vitamin D 25 mcg (1,000 unit) Tablet TK 1 T PO D 07/04/2019 ALPRAZolam (XANAX) 0.5 mg Tablet Take 0.5 mg by mouth daily as needed. 0 04/12/2018 benazepril (LOTENSIN) 10 mg Tablet Take 20 mg by mouth daily. 0 03/07/2018 cetirizine (ZYRTEC) 10 mg Tablet Take 10 mg by mouth daily. 0 05/07/2018 EPINEPHrine 0.3 mg/0.3 mL Auto-Injector Inject 0.3 mg into the muscle as needed. 0 03/23/2018 omeprazole (PRILOSEC) 20 mg Capsule, Delayed Release(E.C.) Take 20 mg by mouth daily. 0 03/07/2018 calcium-vitamin D3 600 mg(1,500mg) -200 unit Tablet Take 1,200 mg by mouth daily. multivitamin (THERAGRAN) Tablet Take 1 tablet by mouth daily. budesonide-formoterol (SYMBICORT) 80-4.5 mcg/actuation HFA Aerosol Inhaler Inhale 2 puffs into the lungs once as needed. Ozempic 0.25 mg or 0.5 mg (2 mg/3 mL) Pen Injector 11/15/2022 gabapentin (Neurontin) 100 mg CapsuleIndications:Adul t BMI 50.0-59.9 kg/sq m,Chronic bilateral low back pain with bilateral sciatica,Radiculopathy of lumbar region Take 1 capsule by mouth 3 times daily. 90 capsule 12 07/09/2022 hydroCHLOROthiazide (Hydrodiuril) 25 mg Tablet Take 25 mg by mouth daily. 01/08/2022 albuterol 90 mcg/actuation HFA Aerosol Inhaler Inhale 2 puffs into the lungs every 4 hours as needed for Wheezing. Use with spacer Paxlovid, EUA, 300 mg (150 mg x 2)-100 mg Tablets, Dose Pack (EUA) TAKE THREE TABLETS BY MOUTH TWICE A DAY FOR 5 DAYS 07/12/2022 11/16/2023 citalopram (CeleXA) 20 mg Tablet Take 20 mg by mouth every morning. 05/18/2023 documented as of this encounter Plan of Treatment Upcoming Encounters Date Type Department Care Team (Late st Contact Info) Description 05/30/2024 10:00 AM EST Appointment Mammography/[place] [phone] Alicia Quinteros MD [facility] [place] [address] 08/11/2024 4:15 PM EST Office Visit Dermatology at [place] [address] [place] [phone] Jhon Giron MD [address], [place] [address] 11/21/2024 2:00 PM EDT Office Visit Radiation Oncology at [address] [phone] Alicia Quinteros MD [facility] [place] [address] 10/06/2029 Hospital Encounter [place] [phone] Al Mendez MD [facility] [place] [address] Scheduled Procedures Name Priority Associated Diagnoses Date/Ti me @TOTAL KNEE REVISION ARTHROP LASTY, COMPLETE (WRVU 27.11) Instability Right TKA MODIFIER,GMK REVISION KNEE,MEDACTA Instability Right TKA documented as of this encounter Procedures Procedure Name Priority Date/Time Associated Diagnosis Comments MAMMO SCREENING CAD AND MILTON RIGHT Routine 12/23/2022 3:18 PM EDT Breast cancer screening by mammogram documented in this encounter Results * Mammo Screening Cad and Milton Right (12/23/2022 3:18 PM EDT) Anatomical Region Laterality Modality Breast Right Mammography Narrative 12/24/2022 9:42 AM EDT RIGHT BREAST MAMMOGRAPHY REASON FOR EXAM: Screening TECHNIQUE: CC and MLO views were obtained of the right breast using standard 2-D mammography as well as 3-D tomosynthesis. Computer aided detection was used. This is compared with prior images. FINDINGS: There are scattered areas of fibroglandular density. There are no suspicious microcalcifications, masses, or areas of distortion. The pattern is stable. CONCLUSION: No mammographic evidence of malignancy. RECOMMENDATION: Regular screening mammograms starting between age 40 and 50 reduces the risk of from breast cancer. All screening tests have both risks and benefits. These risks and benefits should be assessed for each individual patient through discussion with their provider to determine their preferred breast cancer screening schedule. Women should report any breast changes to a health care provider right away. Some women, because of their family history, a genetic tendency, or other factors, should be screened with annual breast MRI as well as with mammograms. (The number of women who fall into this category is very small). Patients and health care providers should discuss each patient? s history to decide if earlier screening and/or breast MRI are appropriate. Screening should continue as long as a woman is in good health and is expected to live 10 years or longer. Screening mammography may not detect 10-15% of breast cancers. A result letter has been sent to this patient by the [facility]. BIRADS CATEGORY 1: NEGATIVE Electronically signed by: ??Tomer Klein III, MD Alicia Quinteros MD IMG MAMMO ORDERABLES documented in this encounter Visit Diagnoses Diagnosis Breast cancer screening by mammogram documented in this encounter Care Teams Head Of English Relationship Specialty Start Date End Date Bhaskar Morales MD PCP - General Family Medicine 12/18/20 documented as of this encounter
--- OUTSIDE RECORDS SUMMARY | 2024-04-14 10:36 | XMS_ITS | Encounter Summary ---
Author Organization [place] [address] Care Team Providers Care Business Analysis Consultant Name Role Phone Bhaskar Morales MD Primary Care Provider [phone] Encounter Details Date Type Department Care Team (Latest Contact Info) Description 11/10/2022 Travel Social History Tobacco Use Types Packs/Day [...] 05/30/2024 10:00 AM EST Appointment Mammography/[place] [address] Alicia Quinteros MD [facility] [place] [address] 08/11/2024 4:15 PM EST Office Visit Dermatology at [address] [place] [phone] Jhon Giron MD [address], [place] [address] 11/21/2024 2:00 PM EDT Office Visit Radiation Oncology at [address] [phone] Alicia Quinteros MD [facility] [place] [address] 10/06/2029 Hospital Encounter [place] [address] Al Mendez MD [facility] [place] [address] Scheduled Procedures Name Priority Associated Diagnoses Date/Ti me @TOTAL KNEE REVISION ARTHROP LASTY, COMPLETE (WRVU 27.11) Instability Right TKA MODIFIER,GMK REVISION KNEE,MEDACTA Instability Right TKA documented as of this encounter Visit Diagnoses Not on filedocumented in this encounter Care Teams Business Analysis Consultant Relationship Specialty Start Date End Date Bhaskar Morales MD PCP - General Family Medicine 12/18/20 documented as of this encounter
--- OUTSIDE RECORDS SUMMARY | 2024-04-14 10:36 | XMS_ITS | Encounter Summary ---
Author Organization [facility] [place] [address] Care Team Providers Care Human Resource Analyst Name Role Phone Bhaskar Morales MD Primary Care Provider [phone] Encounter Details Date Type Department Care Team (Latest Contact Info) Description 07/09/2022 1:53 PM EST - 07/09/2022 11:59 PM EST Hospital Encounter XRay at [facility] [place] [address] Lukas Lorenzo MD [facility] [place] [address] Adult BMI 50.0-59.9 kg/sq m; Chronic bilateral low back pain with bilateral sciatica; Radiculopathy of lumbar region Discharge Disposition: Home Social History Tobacco Use [...] Sig Dispensed Refills Start Date End Date metFORMIN (Glucophage) 500 mg Tablet TAKE ONE [...] puffs into the lungs once as needed. gabapentin (Neurontin) 100 mg CapsuleIndications:Adul t BMI [...] as needed for Wheezing. Use with spacer naproxen (NAPROSYN) 500 mg Tablet Take 1 tablet by mouth 2 times daily as needed (pain). Take with food for up to 6 weeks after surgery. 84 tablet 02/16/2021 11/17/2022 citalopram (CeleXA) 20 mg Tablet Take 20 mg by mouth every morning. 05/18/2023 documented as of this encounter Plan of Treatment Upcoming Encounters Date Type Department Care Team (Late st Contact Info) Description 05/30/2024 10:00 AM EST Appointment Mammography/[place] [address] Alicia Quinteros MD [facility] [place] [address] 08/11/2024 4:15 PM EST Office Visit Dermatology at [place] [address] [place] [address] Jhon Giron MD [address], [place] [address] 11/21/2024 2:00 PM EDT Office Visit Radiation Oncology at [address] [phone] Alicia Quinteros MD [facility] [place] [address] 10/06/2029 Hospital Encounter [place] [address] Al Mendez MD [facility] [place] [address] Scheduled Procedures Name Priority Associated Diagnoses Date/Ti me @TOTAL KNEE REVISION ARTHROP LASTY, COMPLETE (WRVU 27.11) Instability Right TKA MODIFIER,GMK REVISION KNEE,MEDACTA Instability Right TKA documented as of this encounter Procedures Procedure Name Priority Date/Time Associated Diagnosis Comments XR LUMBAR SPINE AP FLEXION AND EXTENSION ONLY Routine 07/09/2022 2:12 PM EST Adult BMI 50.0-59.9 kg/sq m Chronic bilateral low back pain with bilateral sciatica Radiculopathy of lumbar region documented in this encounter Results * XR Lumbar Spine AP Flexion and Extension Only (07/09/2022 2:12 PM EST) Anatomical Region Laterality Modality L-spine N/A Digital Radiogra phy Impressions 07/10/2022 11:23 AM EST 1. ??Multilevel degenerative disc disease and facet arthropathy. 2. ??6 mm retrolisthesis of L3 on L4 with no radiographic evidence of dynamic instability. I have personally reviewed the image(s) and the resident's interpretation and agree with the findings, Elena Ballard MD at 07/10/2022 11:23 AM Thank you for letting us participate in the care of this patient. ??If you are a health care provider and have any questions regarding this report, please contact the number below. ??For patients who have questions please contact the health healthcare network consultant that requested your imaging first. ? Electronically signed by: Elena Ballard MD, [facility] ([phone]), at 07/10/2022 11:23 AM Narrative 07/10/2022 11:23 AM EST EXAMINATION: XR LUMBAR SPINE AP FLEXION AND EXTENSION ONLY CLINICAL HISTORY: low back pain, bilateral leg symptoms. Assess for dynamic motion. AP, lateral, flexion and extension. (as entered by ordering provider in the order requisition) TECHNIQUE: AP view the lumbar spine. Lateral neutral, lateral extension, and lateral flexion views of the lumbar spine. COMPARISON: None FINDINGS: There are small riblets arising from T12. There are 5 nonrib-bearing lumbar-type vertebral bodies. There is right convex curvature of the lumbar spine. No focal vertebral body height loss. 6 mm retrolisthesis of L3 on L4 is unchanged in flexion and extension. Disc space narrowing at multiple levels of the lumbar spine, most severe at L1-2 and L2-3. Facet arthropathy at all levels of the lumbar spine. Procedure Note Elena Ballard MD - 07/10/2022 EXAMINATION: XR LUMBAR SPINE AP FLEXION AND EXTENSION ONLY CLINICAL HISTORY: low back pain, bilateral leg symptoms. Assess fordynamic motion. AP, lateral, flexion and extension. (as entered by orderingprovider in the order requisition) TECHNIQUE: AP view the lumbar spine. Lateral neutral, lateral extension, andlateral flexion views of the lumbar spine. COMPARISON: None FINDINGS: There are small riblets arising from T12. There are 5 hxnhds-rtgwcnjwcsfqg-wgci vertebral bodies. There is right convex curvature of the lumbar spine. No focal vertebral body height loss. 6 mm retrolisthesis of L3 on L4 is unchanged in flexion and extension. Disc space narrowing at multiple levels of the lumbar spine, most severeat L1-2 and L2-3. Facet arthropathy at all levels of the lumbar spine. IMPRESSION 1. Multilevel degenerative disc disease and facet arthropathy. 2. 6 mm retrolisthesis of L3 on L4 with no radiographic evidence ofdynamic instability. I have personally reviewed the image(s) and the resident's interpretationand agree with the findings, Elena Ballard MD at 07/10/2022 11:23 AM Thank you for letting us participate in the care of this patient. If youare a health care provider and have any questions regarding this report,please contact the number below. For patients who have questions please contactthe health healthcare network consultant that requested your imaging first. Electronically signed by: Elena Ballard MD, [facility]([phone]), at 07/10/2022 11:23 AM Lukas Lorenzo MD IMG DX ORDERABLES documented in this encounter Visit Diagnoses Diagnosis Adult BMI 50.0-59.9 kg/sq m Body Mass Index 50.0-59.9, adult Chronic bilateral low back pain with bilateral sciatica Radiculopathy of lumbar region Thoracic or lumbosacral neuritis or radiculitis, unspecified documented in this encounter Care Teams Human Resource Analyst Relationship Specialty Start Date End Date Bhaskar Morales MD PCP - General Family Medicine 12/18/20 documented as of this encounter
--- OUTSIDE RECORDS SUMMARY | 2024-04-14 10:36 | XMS_ITS | Encounter Summary ---
Author Organization [facility] [place] [address] Care Team Providers Care Sumo Wrestler Name Role Phone Bhaskar Morales MD Primary Care Provider [phone] Encounter Details Date Type Department Care Team (Late st Contact Info) Description 08/06/2023 4:30 PM EST Office Visit Dermatology at [address] [phone] Jhon Giron MD [address] [place] [address], [facility] [place] [address] Seborrheic keratosis; Nevus Social History Tobacco Use Types Packs/Day Years [...] PM EST documented as of this encounter Progress Notes * Jhon Giron MD - 08/06/2023 4:30 PM EST Problem: 1. Skin checkup, history of significant sun exposure growing up 2. Recent history of of breast CA no recurrence x 5 years! 3. No known personal history of skin cancer, but strong family history of nonmelanoma skin cancer in her father 4. Patient with stable mucosal macule right lower lip Quin follows up after last being seen in July 2021. She been doing well has not noticed any new lesions of concern. The acrochordons around her neck have resolved without any evidence of recurrence. This year schilling her 5-year anniversary of being free of breast cancer. Physical examination reveals a pleasant 57-year-old woman who is a benign examination of the head and the neck the chest the back the hands arms forearms thighs and calves. She continues to not have the acrochordons around her neck. She continues to have a stable mucosal macule on the right lower lip without change, measuring 6 x 8 mm in size. Assessment plan: Benign skin examination 1. Patient reassured about today's benign skin examination 2. No evidence of cutaneous malignancies 3. Return to clinic in a year for repeat check 4. Continue sun avoidance precautions CC: Bhaskar Morales MD documented in this encounter Plan of Treatment Upcoming Encounters Date Type Department Care Team (Late st Contact Info) Description 05/30/2024 10:00 AM EST Appointment Mammography/[place] [address] Alicia Quinteros MD [facility] [place] [address] 08/11/2024 4:15 PM EST Office Visit Dermatology at [address] [place] [phone] Jhon Giron MD [address] [facility], [place] [address] 11/21/2024 2:00 PM EDT Office Visit Radiation Oncology at [address] [phone] Alicia Quinteros MD [facility] [place] [address] 10/06/2029 Hospital Encounter [place] [address] Al Mendez MD [facility] [place] [address] Scheduled Procedures Name Priority Associated Diagnoses Date/Ti me @TOTAL KNEE REVISION ARTHROP LASTY, COMPLETE (WRVU 27.11) Instability Right TKA MODIFIER,GMK REVISION KNEE,MEDACTA Instability Right TKA documented as of this encounter Visit Diagnoses Diagnosis Seborrheic keratosis Other seborrheic keratosis Nevus Benign neoplasm of skin, site unspecified documented in this encounter Care Teams Sumo Wrestler Relationship Specialty Start Date End Date Bhaskar Morales MD PCP - General Family Medicine 12/18/20 documented as of this encounter
--- OUTSIDE RECORDS SUMMARY | 2024-04-14 10:36 | XMS_ITS | Encounter Summary ---
Author Organization [facility] Address [facility] [place] [address] Care Team Providers Care Can Intake Worker Name Role Phone Bhaskar Morales MD Primary Care Provider [phone] Encounter Details Date Type Department Care Team (Latest Contact Info) Description 05/06/2022 2:21 PM EST - 05/06/2022 11:59 PM EST Hospital Encounter [place] [address] Alicia Quinteros MD [facility] [place] [address] Breast lump on left side at 2 o'clock position; Breast lump on left side at 3 o'clock position Discharge Disposition: Home Social History Tobacco Use [...] puffs into the lungs once as needed. hydroCHLOROthiazide (Hydrodiuril) 25 mg Tablet Take 25 [...] 05/30/2024 10:00 AM EST Appointment Mammography/[place] [address] Alicia Quinteros MD [facility] [place] [address] 08/11/2024 4:15 PM EST Office Visit Dermatology at [place] [address] [place] [phone] Jhon Giron MD [address], [place] [address] 11/21/2024 2:00 PM EDT Office Visit Radiation Oncology at [address] [phone] Alicia Quinteros MD [facility] [place] [address] 10/06/2029 Hospital Encounter [place] [address] Al Mendez MD [facility] [place] [address] Scheduled Procedures Name Priority Associated Diagnoses Date/Ti me @TOTAL KNEE REVISION ARTHROP LASTY, COMPLETE (WRVU 27.11) Instability Right TKA MODIFIER,GMK REVISION KNEE,MEDACTA Instability Right TKA documented as of this encounter Procedures Procedure Name Priority Date/Time Associated Diagnosis Comments MAMMO BREAST US LIMITED LEFT Routine 05/06/2022 3:35 PM EST Breast lump on left side at 2 o'clock position Breast lump on left side at 3 o'clock position documented in this encounter Results * US Breast Limited Left (05/06/2022 3:35 PM EST) Anatomical Region Laterality Modality Breast Left Mammography Narrative 05/06/2022 4:31 PM EST DIAGNOSTIC MAMMOGRAPHY AND ULTRASOUND OF THE LEFT BREAST CLINICAL HISTORY: Question palpable lump at 2-3 o'clock in the left breast. History of left lumpectomy in 2019 and subsequent reduction mammoplasty.. TECHNIQUE AND VIEWS OBTAINED: Images acquired with direct digital capture Routine and spot compression views of the left breast were obtained.. Tomographic imaging was performed The exam was evaluated by CAD version 8.3.17.. Ultrasound was performed of the left upper outer quadrant. COMPARISONS: Prior exams available in PACS BREAST DENSITY: There are scattered areas of fibroglandular density FINDINGS: A BB marker identifies the site of palpable abnormality in the upper outer quadrant identified by the patient. No underlying mammographic mass, calcifications or other abnormalities seen. At about the 12-1 o'clock location, there is focal asymmetry representing the site of previous lumpectomy. This appears denser and perhaps more spiculated than on prior exams, while still including a radial lucent area suggestive of fat necrosis. LEFT BREAST ULTRASOUND: Sonographic evaluation of the 2 and 3:00 area at the site of palpable lump and tenderness identified by the patient, shows no underlying discrete cystic or solid mass or other abnormality. Evaluation of the area of lumpectomy at 1:00 about 4 cm from the nipple shows a heterogeneous oblong hypoechoic mass measuring about 2.7 cm in long axis by 0.9 cm by 12 cm. In its mid deep aspect it is composed of scattered 1 cm anechoic portion likely representing an oil cyst. The more inferomedial hypoechoic portion contains several echogenic foci, one of which likely represents the mammographically visible clip. DIAGNOSTIC SUMMARY: No mammographic or sonographic abnormality seen at the site of palpable concern. However, the lumpectomy bed appears denser and more spiculated. This is of uncertain significance and etiology. INTERPRETATION: BI-RADS Category 4: Suspicious Finding - Biopsy Should Be Considered Results and recommendations were discussed with the patient was in agreement. Biopsy is being scheduled. RECOMMENDATION: * ??Regular screening mammograms starting between age 40 and 50 reduces the risk of from breast cancer. * ??All screening tests have both risks and benefits. These risks and benefits should be assessed for each individual patient through discussion with their provider to determine their preferred breast cancer screening schedule. * ??Women should report any breast changes to a health care provider right away. * ??Some women, because of their family history, a genetic tendency, or other factors, should be screened with annual breast MRI as well as with mammograms. (The number of women who fall into this category is very small). Patients and health care providers should discuss each patients history to decide if earlier screening and/or breast MRI are appropriate. * ??Screening should continue as long as a woman is in good health and is expected to live 10 years or longer. * ??Screening mammography may not detect 10-15% of breast cancers. Thank you for letting us participate in the care of this patient. ??If you are a health care provider and have any questions regarding this report, please contact the number below. ??For patients who have questions please contact the health healthcare specialist that requested your imaging first. ? Alicia Quinteros MD IMG MAMMO ORDERABLES documented in this encounter Visit Diagnoses Diagnosis Breast lump on left side at 2 o'clock position Lump or mass in breast Breast lump on left side at 3 o'clock position Lump or mass in breast documented in this encounter Care Teams Can Intake Worker Relationship Specialty Start Date End Date Bhaskar Morales MD PCP - General Family Medicine 12/18/20 documented as of this encounter
--- OUTSIDE RECORDS SUMMARY | 2024-04-14 10:36 | XMS_ITS | Encounter Summary ---
[place] [address] Care Team Providers Care Estimating Engineer Name Role Phone Bhaskar Morales MD Primary Care Provider [phone] Encounter Details Date Type Department Care Team (Late Contact Info) Description 03/17/2023 Orders Only Radiation Oncology at [address] [phone] Alicia Quinteros MD [facility] [place] [address] Breast cancer screening by mammogram Social History Tobacco Use Types Packs/Day Years [...] Encounters Date Type Department Care Team (Late Contact Info) Description 05/30/2024 10:00 AM EST Appointment Mammography/[place] [address] Alicia Quinteros MD [facility] [place] [address] 08/11/2024 4:15 PM EST Office Visit Dermatology at [place] [address] [place] [phone] Jhon Giron MD [address], [place] [address] 11/21/2024 2:00 PM EDT Office Visit Radiation Oncology at [address] [phone] Alicia Quinteros MD [facility] [place] [address] 10/06/2029 Hospital Encounter [place] [address] Al Mendez MD [facility] [place] [address] Scheduled Procedures Name Priority Associated Diagnoses Date/Ti me @TOTAL KNEE REVISION ARTHROP LASTY, COMPLETE (WRVU 27.11) Instability Right TKA MODIFIER,GMK REVISION KNEE,MEDACTA Instability Right TKA documented as of this encounter Visit Diagnoses Diagnosis Breast cancer screening by mammogram documented in this encounter Care Teams Estimating Engineer Relationship Specialty Start Date End Date Bhaskar Morales MD PCP - General Family Medicine 12/18/20 documented as of this encounter
--- OUTSIDE RECORDS SUMMARY | 2024-04-14 10:36 | XMS_ITS | Encounter Summary ---
Author Organization [facility] [place] [address] Care Team Providers Care Batt Packer Name Role Phone Bhaskar Morales MD Primary Care Provider [phone] Encounter Details Date Type Department Care Team (Latest Contact Info) Description 05/08/2022 1:49 PM EST Hospital Encounter [place] [phone] Joaquina Sykes MD [facility] DR [place] [address] Abnormal finding on breast imaging Discharge Disposition: Home Social History Tobacco Use [...] 05/30/2024 10:00 AM EST Appointment Mammography/[place] [phone] Alicia Quinteros MD [facility] RADIATION [place] [address] 08/11/2024 4:15 PM EST Office Visit Dermatology at [address] [place] [address] Jhon Giron MD [address], [place] [address] 11/21/2024 2:00 PM EDT Office Visit Radiation Oncology at [address] [phone] Alicia Quinteros MD [facility] DR RADIATION [place] [address] 10/06/2029 Hospital Encounter [place] [address] Al Mendez MD [facility] DR ORTHOPAEDIC [place] [address] Scheduled Procedures Name Priority Associated Diagnoses Date/Ti me @TOTAL KNEE REVISION ARTHROP LASTY, COMPLETE (WRVU 27.11) Instability Right TKA MODIFIER,GMK REVISION KNEE,MEDACTA Instability Right TKA documented as of this encounter Procedures Procedure Name Priority Date/Time Associated Diagnosis Comments MAMMO US BIOPSY LEFT Routine 05/08/2022 3:27 PM EST Abnormal finding on breast imaging SPECIMEN TO PATHOLOGY Routine 05/08/2022 3:06 PM EST SURGICAL PATHOLOGY REPORT Routine 05/08/2022 2:58 PM EST documented in this encounter Results * Mammo Us Biopsy Left (05/08/2022 3:27 PM EST) Anatomical Region Laterality Modality Breast Left Mammography Impressions 05/09/2022 3:23 PM EST Benign, concordant result RECOMMENDATION: Routine annual screening. Results and recommendations were discussed with the patient by Dr. Sykes on 05/09/2022. REVIEW PATH CONFERENCE?: No Thank you for letting us participate in the care of this patient. ??If you are a health care provider and have any questions regarding this report, please contact the number below. ??For patients who have questions please contact the health long term care administrator that requested your imaging first. ? Electronically signed by: Joaquina Sykes [facility] ([phone]), at 05/09/2022 3:23 PM Narrative 05/09/2022 3:23 PM EST ULTRASOUND GUIDED BIOPSY OF THE LEFT BREAST CLINICAL HISTORY: Question of increasingly dense scar at the site of prior lumpectomy. Again demonstrated as well as the heterogeneous hypoechoic and anechoic structure at the surgical bed in the 1:00 position about 4 to 5 cm from the nipple. PROCEDURAL DETAILS: Informed consent was obtained. Sterile technique was deployed. Approximately 10 cc used for local anesthesia. A small skin incision was made and a biopsy was performed under ultrasound guidance. Multiple core biopsy specimens were obtained using a Achieve 14g device. A Dagne [place] 14G marker clip was placed. Cranio-caudal and lateral digital mammography performed to determine biopsy marker placement, which was shown to be at the expected location. COMPLICATIONS: None. IMAGING DIFFERENTIAL DIAGNOSIS: Scar versus recurrence. PATHOLOGIC DIAGNOSIS: Benign breast tissue with scar and fat necrosis no evidence of malignancy. Focal calcifications associated with fat necrosis. Joaquina Sykes MD IMG MAMMO ORDERABLES * Specimen to Pathology (05/08/2022 3:06 PM EST) AP Specimen 05/08/2022 3:06 PM EST 05/08/2022 3:06 PM EST Narrative [facility] - 05/08/2022 3:06 PM EST Specimen requisition ordered. ??Separate Pathology report to follow Joaquina Sykes MD PATHOLOGY/CYTOLOGY O RDERABLES [facility] [place] [address] * Surgical Pathology Report (05/08/2022 2:58 PM EST) Final Diagnosis [id number] ? Location: 3L The signing pathologist has (i) examined the relevant preparation(s) for the specimen(s) and (ii) rendered or confirmed the diagnosis(es). . ?Surgical Pathology DIAGNOSIS Needle biopsies: ?Left breast Diagnosis: ?- Benign breast tissue with scar and fat necrosis ?- No evidence of malignancy Microcalcificat ions: ??Focal calcification, associated with fat necrosis Electronically signed by: ?Lety Ahuja DO Verified: ??05/09/2022 10:57 ??Pathologist Performed at: ??-[facility] Dept. of Pathology, [place] [address] Cda Teacher: Julien Singh MD, FCAP, ??CLIA Certificate: [id number] SPECIMEN(S) SUBMITTED A - LEFT BREAST ULTRASOUND BIOPSY CARBON COPY: Bhaskar Morales MD ??[phone] CLINICAL INFORMATION Mass/scar 1. Scar vs recurrence SPECIMEN PROCESSING A - Labeled/Fixativ e: Left breast ultrasound biopsy, formalin. Quantity/Size: Six, ranging from 0.9 x 0.2 cm to 1.5 x 0.2 cm Tissue Description: Yellow-white fibrofatty needle core biopsies. Sections/Proces sing: Entirely submitted in 2 cassettes labeled A1-A2. Ischemic time: 1 minute Total fixation time in formalin: 6 hours 1 minute The ASCO/CAP guideline related to formalin fixation time has been met (6-72 hours). The ASCO/CAP guideline related to cold ischemic time has been met (<1 hour). ??sns 05/09/2022 10:57 AM EST [facility] BREAST STRUCTURE / Unknown 05/08/2022 2:58 PM EST 05/08/2022 2:58 PM EST Joaquina Sykes MD PATHOLOGY/CYTOLOGY O RDERABLES [facility] [place] [address] documented in this encounter Visit Diagnoses Diagnosis Abnormal finding on breast imaging Other (abnormal) findings on radiological examination of breast documented in this encounter Administered Medications Inactive Administered Medications - up to 3 most recent administrations Medication Order MAR Action Action Date Dose Rate Site lidocaine (Xylocaine) 1% (10 mg/mL) injection 100 mg 100 mg (10 mL), Intradermal, ONCE, 1 dose, On Jessica 05/08/22 at 1430, Routine Given 05/08/2022 2:42 PM EST 100 mg documented in this encounter Care Teams Batt Packer Relationship Specialty Start Date End Date Bhaskar Morales MD PCP - General Family Medicine 12/18/20 documented as of this encounter
--- OUTSIDE RECORDS SUMMARY | 2024-04-14 10:36 | XMS_ITS | Encounter Summary ---
Author Organization [facility] [place] [address] Care Team Providers Care Core Maker Helper Name Role Phone Bhaskar Morales MD Primary Care Provider [phone] Reason for Visit * Reason Comments Follow-up Encounter Details Date Type Department Care Team (Late st Contact Info) Description 05/18/2023 2:30 PM EST Office Visit Radiation Oncology at [address] [address] Alicia Quinteros MD [facility] [place] [address] S/P radiotherapy Social History Tobacco Use Types Packs/Day Years [...] PM EST documented as of this encounter Last Filed Vital Signs Vital Sign Reading Time Taken Comments Blood Pressure 174/89 05/18/2023 2:47 PM EST Pulse 103 05/18/2023 2:47 PM EST Temperature 37 ??C (98.6 ??F) 05/18/2023 2:47 PM EST Respiratory Rate 20 05/18/2023 2:47 PM EST Oxygen Saturation 98% 05/18/2023 2:47 PM EST Inhaled Oxygen Concentration - - Weight - - Height - - Body Mass Index - - documented in this encounter Patient Instructions * Patient Instructions* Alicia Quinteros MD - 05/18/2023 2:30 PM EST Your exam & the 05/15/23 mammograms are without worrisome finding. Someone will contact you to schedule followup in 6 months. documented in this encounter Progress Notes * Alicia Quinteros MD - 05/18/2023 2:30 PM EST Images from the original note were not included. CC: Sched'd fu s/p xrt completion. HPI: Quin is a 57 y/o f who completed xrt 4 yrs, 8 mos ago (09/20/18) for breast ca, L, DCIS, gr 2,ER+NV+, 3.2 cm, +necrosis, s/p lumpectomy. 07/27/18 Dx'ic Rad Interp CTsim: Two sub 5 mm pulmonary nodules, more likely benign intrapulmonary lymph nodes rather than mets; noncontrast CT in 3 mos rec'd. 1 cm hypodense lesion R thyroid lobe; USrec'd. Mild coronary artery atherosclerotic calcs. 09/03/18 thyroid US: 3 R thyroid nodules; 1 L thyroid nodule. 10/12/[address] Paz, Endocrinology: Assessment / Plan: 1) Thyroid Nodule: we discussed thatby TIRADS criteria, for a TIRADS 4 nodule, it is recommended to consider biopsying at size >1.5 cm because overall risk of thyroid cancer is low. However, patient strongly desires to proceed to biopsy. After discussing risks and benefits, patient wishes to proceed. 2) Abnormal thyroid function tests/subclincial hypothyroidism: given that TSH is <10 and no symptoms consistent with overt hypothyroidism, levothyroxine not warranted at this time. Furthermore mildly elevated TSH may represent nonthyroidal illness due to recent XRT therapy. Recommend recheck within 3-6 months. 10/12/18 US guided FNA R thyroid. Cytopath: Benign 10/12/18 TSH 4.39 (0.27-4.20), free T4 wnl 10/13/[address] Paz: FNA of right thyroid nodule returned: benign pathology Recommend 1 year followup with ultrasound Called to discuss but no answer. I had permission from patient to leave message on voicemail and I did so Mild subclinical hypothyroidism, recommend TSH/free T4 recheck in 4-6 months. 12/15/18 genetic testing, neg for mutation. 06/10/19 B mmg: Neg 11/11/19 CT chest: Stable small pulmonary nodules. No additional fu rec'd in non- smoker. No acute process. 06/12/20 B mmg: Neg 07/05/20 Dr. Paz, Endocrinology, R thyroid FNA benign, further followup not indicated. 07/19/21 B mmg: Neg 05/06/22 dx'ic L mmg & L breast US for eval palpable lump @ 2-3:00 L breast: No mammographic orsonographic abnormality seen at the site of palpable concern. However, the lumpectomy bed appears denser and more spiculated. This is of uncertain significance and etiology. 05/08/22 US guided bx L breast. Path: Benign. 12/23/22 R mmg: Neg 05/15/23 B mmg: Neg Subjective: No new pain/swelling. Energy level good. Past Medical History: Diagnosis Date Anxiety Asthma Breast cancer Apr 2018 Cancer Breast Cancer Chronic anxiety CPAP (continuous positive airway pressure) dependence Environmental allergies Gastroesophageal reflux GERD (gastroesophageal reflux disease) High blood pressure HTN (hypertension) Hypercholesteremia Hyperlipidemia Motion sickness Obstructive sleep apnea Status post radiation therapy Thyroid nodule No collagen vasc dz. Past Surgical History: Procedure Laterality Date BREAST BIOPSY May 2018 and 2021 BREAST LUMPECTOMY Jun 2018 BREAST REDUCTION SURGERY Bilateral 1996 JOINT REPLACEMENT Left knee 05/02/15, Right Knee 11/25/17 KNEE SURGERY Bilateral MAMMO STEREOTACTIC BIOPSY LEFT N/A 05/10/2018 Mammo Stereotactic Biopsy Left 05/10/2018 Jinny Gutierrez MD [facility] RAD MAMMOGRAPHY MAMMO US BIOPSY LEFT Left 05/08/2022 Mammo Us Biopsy Left 05/08/2022 Joaquina Sykes MD [facility] RAD MAMMOGRAPHY PRO MASTECTOMY PARTIAL Left 06/24/2018 MASTECTOMY PARTIAL (WRVU 10.13) performed by Frances Zee MD at [facility] MAIN OR PRO REVISE KNEE JOINT REPLACE, ALL PARTS Left 02/15/2021 TOTAL KNEE REVISION ARTHROPLASTY, COMPLETE (WRVU 27.11) performed by Al Mendez MD at [facility] MAIN OR Your Medications Accurate as of May 18, 2023 3:45 PM. If you have any questions, ask your nurse or doctor. Continued medications, unchanged Dose Details ADVIL DUAL ACTION ORAL Take by mouth. Refills: 0 albuteroL 90 mcg/actuation HFA Aerosol Inhaler Inhale 2 puffs into the lungs every 4 hours as needed for Wheezing. Use with spacer 2 puff Refills: 0 ALPRAZolam 0.5 mg tablet Commonly known as: Xanax Take 0.5 mg by mouth daily as needed. 0.5 mg Refills: 0 atorvastatin 40 mg tablet Commonly known as: Lipitor Take 40 mg by mouth nightly. 40 mg Refills: 0 benazepriL 10 mg tablet Commonly known as: Lotensin Take 20 mg by mouth daily. 20 mg Refills: 0 budesonide-formoteroL 80-4.5 mcg/actuation HFA Aerosol Inhaler Commonly known as: Symbicort Inhale 2 puffs into the lungs once as needed. 2 puff Refills: 0 calcium-vitamin D3 600 mg-5 mcg (200 unit) Tablet Take 1,200 mg by mouth daily. 1,200 mg Refills: 0 cetirizine 10 mg tablet Commonly known as: ZyrTEC Take 10 mg by mouth daily. 10 mg Refills: 0 EPINEPHrine 0.3 mg/0.3 mL Auto-Injector Inject 0.3 mg into the muscle as needed. 0.3 mg Refills: 0 gabapentin 100 mg capsule Commonly known as: Neurontin Take 1 capsule by mouth 3 times daily. 100 mg Quantity: 90 capsule Refills: 12 hydroCHLOROthiazide 25 mg tablet Commonly known as: Hydrodiuril Take 25 mg by mouth daily. 25 mg Refills: 0 IRON ORAL Take by mouth. Refills: 0 lamoTRIgine 25 mg tablet Commonly known as: LaMICtal Take 50 mg by mouth 2 times daily. 50 mg Refills: 0 metFORMIN 500 mg tablet Commonly known as: Glucophage TAKE ONE TABLET BY MOUTH EVERY DAY Refills: 0 multivitamin Tablet Commonly known as: THERAGRAN Take 1 tablet by mouth daily. 1 tablet Refills: [address] capsule Commonly known as: PriLOSEC Take 20 mg by mouth daily. 20 mg Refills: 0 Ozempic 0.25 mg or 0.5 mg (2 mg/3 mL) Pen Injector Generic drug: semaglutide Refills: 0 Paxlovid 300 mg (150 mg x 2)-100 mg Tablets, Dose Pack TAKE THREE TABLETS BY MOUTH TWICE A DAY FOR 5 DAYS Generic drug: nirmatrelvir-ritonavir Refills: 0 venlafaxine XR 37.5 mg ER 24 hr capsule Commonly known as: Effexor-XR Take 150 mg by mouth daily. 150 mg Refills: 0 Vitamin D 25 mcg (1,000 unit) tablet TK 1 T PO D Generic drug: cholecalciferol Refills: 0 P&SHx: Never smoker. Physical Exam Constitutional: General: She is not in acute distress. Comments: HENT: Head: Normocephalic. Eyes: General: No scleral icterus. Right eye: No discharge. Left eye: No discharge. Extraocular Movements: Extraocular movements intact. Conjunctiva/sclera: Conjunctivae normal. Pulmonary: Effort: Pulmonary effort is normal. No respiratory distress. Breath sounds: No stridor. Chest: Breasts: Right: No inverted nipple, mass, nipple discharge, skin change or tenderness. Left: No inverted nipple, mass, nipple discharge, skin change or tenderness. Abdominal: General: There is no distension. Palpations: Abdomen is soft. There is no mass. Tenderness: There is no abdominal tenderness. There is no guarding or rebound. Musculoskeletal: General: No swelling. Normal range of motion. Cervical back: Normal range of motion and neck supple. No tenderness. Lymphadenopathy: Head: Right side of head: No submental, submandibular, preauricular, posterior auricular or occipital adenopathy. Left side of head: No submental, submandibular, preauricular, posterior auricular or occipital adenopathy. Cervical: No cervical adenopathy. Upper Body: Right upper body: No supraclavicular or axillary adenopathy. Left upper body: No supraclavicular or axillary adenopathy. Skin: General: Skin is warm and dry. Neurological: General: No focal deficit present. Mental Status: She is alert. Coordination: Coordination normal. Gait: Gait normal. Psychiatric: Mood and Affect: Mood normal. Behavior: Behavior normal. Thought Content: Thought content normal. Judgment: Judgment normal. A: BIMAL P: Rtc 6 mos. 15 mins in encounter. documented in this encounter Plan of Treatment Upcoming Encounters Date Type Department Care Team (Late st Contact Info) Description 05/30/2024 10:00 AM EST Appointment Mammography/[place] [address] Alicia Quinteros MD [facility] [place] [address] 08/11/2024 4:15 PM EST Office Visit Dermatology at [place] [address] [facility] [place] [address] Jhon Giron MD [address], [place] [address] 11/21/2024 2:00 PM EDT Office Visit Radiation Oncology at [address] [phone] Alicia Quinteros MD [facility] [place] [address] 10/06/2029 Hospital Encounter [place] [address] Al Mendez MD [facility] [place] [address] Scheduled Procedures Name Priority Associated Diagnoses Date/Ti me @TOTAL KNEE REVISION ARTHROP LASTY, COMPLETE (WRVU 27.11) Instability Right TKA MODIFIER,GMK REVISION KNEE,MEDACTA Instability Right TKA documented as of this encounter Visit Diagnoses Diagnosis S/P radiotherapy Convalescence following radiotherapy documented in this encounter Care Teams Core Maker Helper Relationship Specialty Start Date End Date Bhaskar Morales MD PCP - General Family Medicine 12/18/20 documented as of this encounter
--- OUTSIDE RECORDS SUMMARY | 2024-04-14 10:36 | XMS_ITS | Encounter Summary ---
[place] [address] Care Team Providers Care Lead Infrastructure Architect Name Role Phone Bhaskar Morales MD Primary Care Provider [phone] Encounter Details Date Type Department Care Team (Late Contact Info) Description 07/23/2022 Telephone [facility] [place] [address] Natalya Sousa Social History Tobacco Use Types Packs/Day Years [...] PM EST documented as of this encounter Miscellaneous Notes * Telephone Encounter - Natalya Sousa - 07/23/2022 9:12 AM EST 07/23/2022 [facility] for patient to see if interested in rescheduling canceled appt with NERY Albarran on 09/10. documented in this encounter Plan of Treatment Upcoming Encounters Date Type Department Care Team (Late Contact Info) Description 05/30/2024 10:00 AM EST Appointment Mammography/[place] [address] Alicia Quinteros MD [facility] [place] [address] 08/11/2024 4:15 PM EST Office Visit Dermatology at [place] [address] [facility] [place] [address] Jhon Giron MD [address], [place] [address] 11/21/2024 2:00 PM EDT Office Visit Radiation Oncology at [address] [phone] Alicia Quinteros MD [facility] [place] [address] 10/06/2029 Hospital Encounter [place] [address] Al Mendez MD [facility] [place] [address] Scheduled Procedures Name Priority Associated Diagnoses Date/Ti me @TOTAL KNEE REVISION ARTHROP LASTY, COMPLETE (WRVU 27.11) Instability Right TKA MODIFIER,GMK REVISION KNEE,MEDACTA Instability Right TKA documented as of this encounter Visit Diagnoses Not on filedocumented in this encounter Care Teams Lead Infrastructure Architect Relationship Specialty Start Date End Date Bhaskar Morales MD PCP - General Family Medicine 12/18/20 documented as of this encounter
--- OUTSIDE RECORDS SUMMARY | 2024-04-14 10:36 | XMS_ITS | Encounter Summary ---
Author Organization [facility] [place] [address] Care Team Providers Care Training Associate Name Role Phone Bhaskar Morales MD Primary Care Provider [phone] Encounter Details Date Type Department Care Team (Latest Contact Info) Description 07/08/2022 Travel Social History Tobacco Use Types Packs/Day [...] 05/30/2024 10:00 AM EST Appointment Mammography/[place] [address] Alicia Quinteros MD [facility] [place] [address] 08/11/2024 4:15 PM EST Office Visit Dermatology at [address] [place] [phone] Jhon Giron MD [address], [place] [address] 11/21/2024 2:00 PM EDT Office Visit Radiation Oncology at [address] [phone] Alicia Quinteros MD [facility] [place] [address] 10/06/2029 Hospital Encounter Main [place] [address] Al Mendez MD [facility] [place] [address] Scheduled Procedures Name Priority Associated Diagnoses Date/Ti me @TOTAL KNEE REVISION ARTHROP LASTY, COMPLETE (WRVU 27.11) Instability Right TKA MODIFIER,GMK REVISION KNEE,MEDACTA Instability Right TKA documented as of this encounter Visit Diagnoses Not on filedocumented in this encounter Care Teams Training Associate Relationship Specialty Start Date End Date Bhaskar Morales MD PCP - General Family Medicine 12/18/20 documented as of this encounter
--- OUTSIDE RECORDS SUMMARY | 2024-04-14 10:36 | XMS_ITS | Encounter Summary ---
Author Organization [facility] [place] [address] Care Team Providers Care Material Stress Tester Name Role Phone Bhaskar Morales MD Primary Care Provider [phone] Reason for Visit * Reason Comments Follow-up Encounter Details Date Type Department Care Team (Late st Contact Info) Description 11/17/2022 1:00 PM EDT Office Visit Radiation Oncology at [address] [phone] Alicia Quinteros MD [facility] [place] [address] Breast cancer screening by mammogram; S/P radiotherapy Social History Tobacco Use Types [...] Sign Reading Time Taken Comments Blood Pressure 145/86 11/17/2022 1:11 PM EDT Pulse 94 11/17/2022 1:11 PM EDT Temperature 37.1 ??C (98.8 ??F) 11/17/2022 1:11 PM ED T Respiratory Rate 18 11/17/2022 1:11 PM EDT Oxygen Saturation 94% 11/17/2022 1:11 PM EDT Inhaled Oxygen Concentration - - Weight 131.1 kg (289 lb) 11/17/2022 1:11 PM EDT Height - - Body Mass Index 54.61 07/09/2022 12:54 PM EST documented in this encounter Patient Instructions * Patient Instructions* Alicia Quinteros MD - 11/17/2022 1:00 PM EDT Stephen Quin. Your exam is without worrisome finding. Someone will call you to schedule right mammogram to be done @ [facility]. Someone will contact you to schedule followup in 6 months. Alicia documented in this encounter Progress Notes * Alicia Quinteros MD - 11/17/2022 1:00 PM EDT Images from the original note were not included. CC: Sched'd fu s/p xrt completion. 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 07/27/18 Dx'ic [...] US guided bx L breast. Path: Benign. Subjective: No new pain/swelling. Energy level good. Past Medical History: Diagnosis Date Anxiety Asthma Cancer Breast Cancer Chronic anxiety CPAP (continuous positive airway pressure) dependence Environmental allergies Gastroesophageal reflux GERD (gastroesophageal reflux disease) High blood pressure HTN (hypertension) Hypercholesteremia Hyperlipidemia Motion sickness Obstructive sleep apnea Status post radiation therapy Thyroid nodule No collagen vasc dz. Past Surgical History: Procedure Laterality Date BREAST REDUCTION SURGERY Bilateral 1996 JOINT REPLACEMENT Left knee 05/02/15, Right Knee 11/25/17 KNEE SURGERY Bilateral MAMMO STEREOTACTIC BIOPSY LEFT N/A 05/10/2018 Mammo Stereotactic Biopsy Left 05/10/2018 Jinny Gutierrez MD [facility] RAD MAMMOGRAPHY MAMMO US BIOPSY LEFT Left 05/08/2022 Mammo Us Biopsy Left 05/08/2022 Joaquina Sykes MD [facility] RAD MAMMOGRAPHY PRO MASTECTOMY PARTIAL Left 06/24/2018 MASTECTOMY PARTIAL (WRVU 10.13) performed by Frances Zee MD at [facility] MAIN OR PRO REVISE KNEE JOINT REPLACE, ALL PARTS Left 02/15/2021 TOTAL KNEE REVISION ARTHROPLASTY, COMPLETE (WRVU 27.11) performed by Al Mendez MD at [facility] MAIN OR Your Medications Accurate as of November 17, 2022 1:34 PM. If you have any questions, ask [...] by mouth daily. 10 mg Refills: 0 citalopram 20 mg tablet Commonly known as: CeleXA Take 20 mg by mouth every morning. 20 mg Refills: 0 EPINEPHrine 0.3 mg/0.3 mL Auto-Injector Inject 0.3 mg into the muscle as needed. 0.3 mg Refills: 0 gabapentin 100 mg capsule Commonly known as: Neurontin Take 1 capsule by mouth 3 times daily. 100 mg Quantity: 90 capsule Refills: 12 hydroCHLOROthiazide 25 mg tablet Commonly known as: Hydrodiuril Take 25 mg by mouth daily. 25 mg Refills: 0 lamoTRIgine 25 mg tablet Commonly [...] Injector Generic drug: semaglutide Refills: 0 Paxlovid (EUA) 150 mg x 2 (300 mg) - 100 mg Tablets, Dose Pack (EUA) TAKE THREE TABLETS BY MOUTH TWICE A DAY FOR 5 DAYS Generic drug: nirmatrelvir-ritonavir Refills: 0 venlafaxine XR 37.5 mg ER 24 hr capsule Commonly known as: Effexor-XR Take 37.5 mg by mouth daily. 37.5 mg Refills: 0 Vitamin D 1,000 unit tablet TK 1 T PO D Generic drug: cholecalciferol Refills: 0 P&SHx: Never smoker. Physical Exam Constitutional: General: She is not in acute distress. Comments: BP 145/86 (Patient Position: Sitting) Pulse 94 Temp 37.1 ??C (98.8 ??F) Resp 18 Wt 131.1 kg (289 lb) SpO2 94% BMI 54.61 kg/m?? HENT: Head: Normocephalic. Eyes: General: No scleral [...] normal. Judgment: Judgment normal. A: BIMAL P: R mmg due. Rtc 6 mos. 20 mins in encounter. documented in this encounter Plan of Treatment Upcoming Encounters Date Type Department Care Team (Late st Contact Info) Description 05/30/2024 10:00 AM EST Appointment Mammography/[place] [address] Alicia Quinteros MD [facility] [place] [address] 08/11/2024 4:15 PM EST Office Visit Dermatology at [address] [place] [address] Jhon Giron MD [address] [place] [address], [place] [address] 11/21/2024 2:00 PM EDT Office Visit Radiation Oncology at [address] [phone] Alicia Quinteros MD [facility] [place] [address] 10/06/2029 Hospital Encounter [place] [address] Al Mendez MD [facility] [place] [address] Scheduled Procedures Name Priority Associated Diagnoses Date/Ti me @TOTAL KNEE REVISION ARTHROP LASTY, COMPLETE (WRVU 27.11) Instability Right TKA MODIFIER,GMK REVISION KNEE,MEDACTA Instability Right TKA documented as of this encounter Results * Mammo Screening Cad [...] Diagnoses Diagnosis Breast cancer screening by mammogram S/P radiotherapy Convalescence following radiotherapy Breast cancer screening by mammogram documented in this encounter Care Teams Material Stress Tester Relationship Specialty Start Date End Date Bhaskar Morales MD PCP - General Family Medicine 12/18/20 documented as of this encounter
--- OUTSIDE RECORDS SUMMARY | 2024-04-14 10:36 | XMS_ITS | Encounter Summary ---
Author Organization [facility] [place] [address] Care Team Providers Care Die Cutter Operator Name Role Phone Bhaskar Morales MD Primary Care Provider [phone] Reason for Visit * Reason Comments Annual Exam Encounter Details Date Type Department Care Team (Late st Contact Info) Description 08/04/2022 4:30 PM EST Office Visit Dermatology at [address] [address] Jhon Giron MD [address] [place] [address], [place] [address] Seborrheic keratosis; Nevus Social History Tobacco Use [...] Progress Notes * Jhon Giron MD - 08/04/2022 4:30 PM EST Problem: 1. ??Skin checkup, history of significant sun exposure growing up 2. ??Recent history of of breast CA 3. ??No known personal history of skin cancer, but strong family history of nonmelanoma skin cancerin her father Quin follows up after last being seen in July 2021. She been doing well has not noticed any new lesions of concern. The acrochordons around her neck have resolved without any evidence of recurrence. Physical examination reveals a pleasant 56 woman who is a benign examination of the head and the neck the chest the back the hands arms forearms thighs and calves Assessment plan: Benign skin examination 1. Patient [...] 05/30/2024 10:00 AM EST Appointment Mammography/[place] [address] Alicia Quinteros MD [facility] [place] [address] 08/11/2024 4:15 PM EST Office Visit Dermatology at [address] [phone] Jhon Giron MD [address] [place] [address], [place] [address] 11/21/2024 2:00 PM EDT Office Visit Radiation Oncology at [address] [phone] Alicia Quinteros MD [facility] [place] [address] 10/06/2029 Hospital Encounter Main [place] [address] Al Mendez MD [facility] ORTHOPAEDIC SURGERY [place] [id number] Scheduled Procedures Name Priority Associated Diagnoses Date/Ti me @TOTAL KNEE REVISION ARTHROP LASTY, COMPLETE (WRVU 27.11) Instability Right TKA MODIFIER,GMK REVISION KNEE,MEDACTA Instability Right TKA documented as of this encounter Visit Diagnoses Diagnosis Seborrheic keratosis Other seborrheic keratosis Nevus Benign neoplasm of skin, site unspecified documented in this encounter Care Teams Die Cutter Operator Relationship Specialty Start Date End Date Bhaskar Morales MD PCP - General Family Medicine 12/18/20 documented as of this encounter
--- OUTSIDE RECORDS SUMMARY | 2024-04-14 10:36 | XMS_ITS | Encounter Summary ---
Author Organization [facility] [place] [address] Care Team Providers Care Movie Stunt Performer Name Role Phone Bhaskar Morales MD Primary Care Provider [phone] Encounter Details Date Type Department Care Team (Latest Contact Info) Description 08/03/2022 Travel Social History Tobacco Use Types Packs/Day [...] 05/30/2024 10:00 AM EST Appointment Mammography/[place] [address] Alicia Quinteros MD [facility] [place] [address] 08/11/2024 4:15 PM EST Office Visit Dermatology at [address] [place] [phone] Jhon Giron MD [address], [place] [address] 11/21/2024 2:00 PM EDT Office Visit Radiation Oncology at [address] [phone] Alicia Quinteros MD [facility] [place] [address] 10/06/2029 Hospital Encounter [place] [address] Al Mendez MD [facility] [address] Scheduled Procedures Name Priority Associated Diagnoses Date/Ti me @TOTAL KNEE REVISION ARTHROP LASTY, COMPLETE (WRVU 27.11) Instability Right TKA MODIFIER,GMK REVISION KNEE,MEDACTA Instability Right TKA documented as of this encounter Visit Diagnoses Not on filedocumented in this encounter Care Teams Movie Stunt Performer Relationship Specialty Start Date End Date Bhaskar Morales MD PCP - General Family Medicine 12/18/20 documented as of this encounter
--- OUTSIDE RECORDS SUMMARY | 2024-04-14 10:36 | XMS_ITS | Encounter Summary ---
Author Organization [facility] [place] [address] Care Team Providers Care Product Development Name Role Phone Bhaskar Morales MD Primary Care Provider [phone] Encounter Details Date Type Department Care Team (Latest Contact Info) Description 05/05/2022 Travel Social History Tobacco Use Types Packs/Day [...] 05/30/2024 10:00 AM EST Appointment Mammography/[place] [address] Alicia Quinteros MD [facility] [place] [address] 08/11/2024 4:15 PM EST Office Visit Dermatology at [address] [place] [phone] Jhon Giron MD [address], [place] [address] 11/21/2024 2:00 PM EDT Office Visit Radiation Oncology at [address] [phone] Alicia Quinteros MD [facility] [place] [address] 10/06/2029 Hospital Encounter [place] [address] Al Mendez MD [facility] [place] [address] Scheduled Procedures Name Priority Associated Diagnoses Date/Ti me @TOTAL KNEE REVISION ARTHROP LASTY, COMPLETE (WRVU 27.11) Instability Right TKA MODIFIER,GMK REVISION KNEE,MEDACTA Instability Right TKA documented as of this encounter Visit Diagnoses Not on filedocumented in this encounter Care Teams Product Development Relationship Specialty Start Date End Date Bhaskar Morales MD PCP - General Family Medicine 12/18/20 documented as of this encounter
--- OUTSIDE RECORDS SUMMARY | 2024-04-14 10:36 | XMS_ITS | Encounter Summary ---
Author Organization [facility] [place] [address] Care Team Providers Care Pv Design Engineer Name Role Phone Bhaskar Morales MD Primary Care Provider Encounter Details Date Type Department Care Team (Latest Contact Info) Description 05/07/2022 Travel Social History Tobacco Use Types Packs/Day [...] 05/30/2024 10:00 AM EST Appointment Mammography/[place] [address] Alicia Quinteros MD [facility] [place] [address] 08/11/2024 4:15 PM EST Office Visit Dermatology at [address] [place] [phone] Jhon Giron MD [address], [place] [address] 11/21/2024 2:00 PM EDT Office Visit Radiation Oncology at [address] [phone] Alicia Quinteros MD [facility] [place] [address] 10/06/2029 Hospital Encounter [place] [address] Al Mendez MD [facility] [place] [address] Scheduled Procedures Name Priority Associated Diagnoses Date/Ti me @TOTAL KNEE REVISION ARTHROP LASTY, COMPLETE (WRVU 27.11) Instability Right TKA MODIFIER,GMK REVISION KNEE,MEDACTA Instability Right TKA documented as of this encounter Visit Diagnoses Not on filedocumented in this encounter Care Teams Pv Design Engineer Relationship Specialty Start Date End Date Bhaskar Morales MD PCP - General Family Medicine 12/18/20 documented as of this encounter
--- OUTSIDE RECORDS SUMMARY | 2024-04-14 10:36 | XMS_ITS | Encounter Summary ---
[place] [address] Care Team Providers Care Rattling Machine Tender Name Role Phone Bhaskar Morales MD Primary Care Provider [phone] Reason for Visit * Reason Comments Follow Up Surgery XR (BILAT KNEE) B ILAT KNEE PAIN L TKA REV DOS 02/15/21 (JENNIFER) R TKA 2018 (Kellen) Encounter Details Date Type Department Care Team (Late st Contact Info) Description 02/24/2024 3:00 PM EDT Office [place] [address] Al Mendez MD [facility] DR [place] [address] 02/15/2021 S/P revision of left total knee (Dr. Mendez); Presence of right artificial knee joint; Pain of right lower extremity; Chronic instability of right knee Social History Tobacco Use Types Packs/Day Years [...] Sign Reading Time Taken Comments Blood Pressure - - Pulse - - Temperature - - Respiratory Rate - - Oxygen Saturation - - Inhaled Oxygen Concentration - - Weight 120.2 kg (265 lb) 02/24/2024 2:45 PM EDT Height 154.9 cm (5' 1) 02/24/2024 2:45 PM EDT Body Mass Index 50.07 02/24/2024 2:45 PM EDT documented in this encounter Progress Notes * Al Mendez MD - 02/24/2024 3:00 PM EDT ARTHROPLASTY HISTORY/PREVIOUS KNEE SURGERY: Left TKA 05/02/15 (Kellen) RIGHT TKA 2017 (Kellen) 02/15/21 (Jennifer) LEFT TKA revision Chief complaint: 3 year follow-up left revision total knee arthroplasty and rotary follow-up of right total knee arthroplasty Quin Santana is a 58-year-old female who is now 3 year 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 She is now 6 years out from her right total knee arthroplasty done in [place]. She reports the left knee has been doing very well. She has excellent range of motion and no pain. She is very happy with her outcome and reports excellent fu nction of the left knee. Over the past year she has unfortunately been having increasing issues with her right knee. Symptoms are similar to what she had on the left before revision. She describes pain and aching at the end of the day. Biggest issue is pain and instability/lack of trust on uneven ground especially descending stairs. Feels like walking on a pillow at times. She is noting increasing functional limitation from her right knee. ROS otherwise negative for fevers or chills. 02/23/2024 General Health, Prior Treatments, PreExisting Condition, Health Habits, About You PROMIS-10 General Health Very Good PROMIS-10 Quality of Life Very Good PROMIS-10 Physical Health Very Good PROMIS-10 Mental Health Good PROMIS-10 Social Activity Very Good PROMIS-10 Everyday Activities Completely PROMIS-10 Pain 7 PROMIS-10 Fatigue Mild PROMIS-10 Social Roles Very Good PROMIS-10 Anxious or Depressed Sometimes PROMIS PHYSICAL SCORE (range 16-68) 47.7 PROMIS MENTAL SCORE (range 21-68) 48.3 KOOS JR Scores 70.7 TKA Grade 9 02/23/2024 [facility] Response KOOS JR Scores 70.7 02/23/2024 Spine [facility] Response KOOS JR Scores 70.7 Ht 154.9 cm (5' 1) Wt 120.2 kg (265 lb) BMI 50.07 kg/m?? Post Op Left Knee Exam: Knee ROM: Extension:0 Flexion: 120 Alignment: 0-4 degrees Neutral Stability: A/P Translation <5mm Varus (lateral stability) <5mm Valgus (medial stability) <5mm Extension La degrees or less Patella Tracking: Normal Pulses Palpable: Left PT:Yes Left DP:Yes Motor/Sensory: Distal Motor: Normal Distal Sensory: Normal Quadriceps Strength:5 Post Op Right Knee Exam: Notable for mid flexion and flexion instablity Knee ROM: Extension:0 Flexion: 120 Alignment: 0-4 degrees Neutral Stability: A/P Translation <5mm. Varus (lateral stability) 5-10mm Valgus (medial stability) 5-10mm Extension La degrees or less Patella Tracking: Normal Pulses Palpable: Right PT: Yes Right DP:Yes Motor/Sensory: Distal Motor: Normal Distal Sensory: Normal Quadriceps Strength: 5 Imaging: Updated x-rays were obtained today including a standing alignment view and 3 views bilateral knees. On the left side she had a revision semiconstrained total knee arthroplasty with appropriate alignment no evidence of loosening, subsidence, or other complication. There is no effusion in the left knee. On the right side she has a primary rotating platform cruciate retaining total knee arthroplasty. No signs of loosening or poly wear. Quin Santana is a 58 y F who is 3 year s/p Revision left knee for aseptic loosening and catastrophic poly failure. TKAs were done with excessive distal femur resections (12mm) likely contributing toelevation of the joint line and mid flexion instability. She is having symptoms of instability of the right knee at this time and would like to consider revision TKA next year. She is otherwise very happy with her left rev TKA and has no complaints there. We reviewed risks of revision TKA and she would like to proceed. BMI today is 50. documented in this encounter Plan of Treatment Upcoming Encounters Date Type Department Care Team (Late st Contact Info) Description 05/30/2024 10:00 AM EST Appointment Mammography/[place] [address] Alicia Quinteros MD [facility] [place] [address] 08/11/2024 4:15 PM EST Office Visit Dermatology at [place] [address] [place] [address] Jhon Giron MD [address], [place] [address] 11/21/2024 2:00 PM EDT Office Visit Radiation Oncology at [address] [phone] Alicia Quinteros MD [facility] [place] [address] 10/06/2029 Hospital Encounter [place] [address] Al Mendez MD [facility] [place] [address] Scheduled Orders Name Type Priority Associated Diagnoses Orde r Schedule SURGICAL CASE REQUEST: @TOTAL KNEE REVISION ARTHROPLASTY, COMPLETE (WRVU 27.11) Procedures Routine One Time for 1 Occurrences starting 02/29/2024 until 02/29/2024 Type and Screen Future Surgery, [facility] SAME [facility] ONLY) Blood Bank Routine Presence of right artificial knee joint Pain of right lower extremity Chronic instability of right knee Expected: 02/29/2024, Expires: 08/30/2024 CBC (with Diff) Lab Routine Presence of right artificial knee joint Pain of right lower extremity Chronic instability of right knee Expected: 02/29/2024, Expires: 08/30/2024 Basic Metabolic Panel Non-fasting Lab Routine Presence of right artificial knee joint Pain of right lower extremity Chronic instability of right knee Expected: 02/29/2024, Expires: 08/30/2024 Prothrombin Time Lab Routine Presence of right artificial knee joint Pain of right lower extremity Chronic instability of right knee Expected: 02/29/2024, Expires: 08/30/2024 APTT Lab Routine Presence of right artificial knee joint Pain of right lower extremity Chronic instability of right knee Expected: 02/29/2024, Expires: 08/30/2024 XR Knee Standing Alignment AP Lat [place] Right Imaging Routine Presence of right artificial knee joint Pain of right lower extremity Chronic instability of right knee Expected: 02/28/2025 (Approximate), Expires: 08/30/2025 Scheduled Procedures Name Priority Associated Diagnoses Date/Ti me @TOTAL KNEE REVISION ARTHROP LASTY, COMPLETE (WRVU 27.11) Instability Right TKA MODIFIER,GMK REVISION KNEE,MEDACTA Instability Right TKA documented as of this encounter Visit Diagnoses Diagnosis 02/15/2021 S/P revision of left total knee (Dr. Mendez) Presence of right artificial knee joint Knee joint replacement by other means Pain of right lower extremity Chronic instability of right knee Other joint derangement, not elsewhere classified, lower leg documented in this encounter Care Teams Rattling Machine Tender Relationship Specialty Start Date End Date Bhaskar Morales MD PCP - General Family Medicine 12/18/20 documented as of this encounter
--- OUTSIDE RECORDS SUMMARY | 2024-04-14 10:36 | XMS_ITS | Encounter Summary ---
Author Organization [facility] Address [facility] [place] [address] Care Team Providers Care Management Developer Name Role Phone Bhaskar Morales MD Primary Care Provider [phone] Reason for Visit * Reason Comments Medication Refill Encounter Details Date Type Department Care Team (Late Contact Info) Description 08/07/2023 Refill [facility] [place] [phone] Dago Albarran PA [facility] [place] [address] Adult BMI 50.0-59.9 kg/sq m; Chronic bilateral low back pain with bilateral sciatica; Radiculopathy of lumbar region Social History Tobacco Use Types Packs/Day Years [...] 05/30/2024 10:00 AM EST Appointment Mammography[place] [address] Alicia Quinteros MD [facility] [place] [address] 08/11/2024 4:15 PM EST Office Visit Dermatology at [place] [address] [place] [address] Jhon Giron MD [address], [place] [address] 11/21/2024 2:00 PM EDT Office Visit Radiation Oncology at [address] [phone] Alicia Quinteros MD [facility] [place] [address] 10/06/2029 Hospital Encounter [place] [address] Al Mendez MD [facility] [place] [address] Scheduled Procedures Name Priority Associated Diagnoses Date/Ti me @TOTAL KNEE REVISION ARTHROP LASTY, COMPLETE (WRVU 27.11) Instability Right TKA MODIFIER,GMK REVISION KNEE,MEDACTA Instability Right TKA documented as of this encounter Visit Diagnoses Diagnosis Adult BMI 50.0-59.9 kg/sq m Body Mass Index 50.0-59.9, adult Chronic bilateral low back pain with bilateral sciatica Radiculopathy of lumbar region Thoracic or lumbosacral neuritis or radiculitis, unspecified documented in this encounter Care Teams Management Developer Relationship Specialty Start Date End Date Bhaskar Morales MD PCP - General Family Medicine 12/18/20 documented as of this encounter
--- OUTSIDE RECORDS SUMMARY | 2024-04-14 10:36 | XMS_ITS | Encounter Summary ---
Author Organization [facility] [place] [address] Care Team Providers Care Household Chores Name Role Phone Bhaskar Morales MD Primary Care Provider Reason for Visit * Reason Comments Follow-up Encounter Details Date Type Department Care Team (Late st Contact Info) Description 04/21/2022 2:00 PM EST Office Visit Radiation Oncology at [address] [phone] Alicia Quinteros MD [facility] [place] [address] Breast lump on left side at 2 o'clock position; Breast lump on left side at 3 o'clock position Social History Tobacco Use Types Packs/Day Years [...] Sign Reading Time Taken Comments Blood Pressure 141/73 04/21/2022 2:04 PM EST Pulse 97 04/21/2022 2:04 PM EST Temperature 36.5 ??C (97.7 ??F) 04/21/2022 2:04 PM ES T Respiratory Rate - - Oxygen Saturation 99% 04/21/2022 2:04 PM EST Inhaled Oxygen Concentration - - Weight 138 kg (304 lb 3.2 oz) 04/21/2022 2:04 PM EST Height - - Body Mass Index 57.51 03/26/2022 2:18 PM EDT documented in this encounter Patient Instructions * Patient Instructions* Alicia Quinteros MD - 04/21/2022 2:00 PM EST Stephen Quin. If left breast ultrasound & left mammogram negative, someone will contact you to schedule evaluation by physical therapist in [facility]. The physical therapist can teach you exercises & a light form of massage therapy to decrease the tenderness in left breast. Someone will contact you to schedule followup in 6 months. Alicia documented in this encounter Progress Notes * Alicia Quinteros MD - 04/21/2022 2:00 PM EST Images from the original note were not included. CC: Sched'd fu s/p xrt completion. HPI: Quin is a 56 y/o f who completed xrt 3 yrs, 7 mos ago (09/20/18) for breast ca, L, DCIS, gr 2,ER+IL+, 3.2 cm, +necrosis, s/p lumpectomy. ?? 07/27/18 Dx'ic Rad Interp CTsim: ??Two sub 5 mm pulmonary nodules, more likely benign intrapulmonarylymph nodes rather than mets; noncontrast CT in 3 mos rec'd. ??1 cm hypodense lesion R thyroid lobe; US rec'd. ??Mild coronary artery atherosclerotic calcs. ?? 09/03/18 thyroid US: ??3 R thyroid nodules; 1 L thyroid nodule. [...] risks and benefits, patient wishes to proceed. ??2) Abnormal thyroid function tests/subclincial hypothyroidism: given that [...] message on voicemail and I did so ??Mild subclinical hypothyroidism, recommend TSH/free T4 recheck in 4-6 months. 12/15/18 genetic testing, neg for mutation. 06/10/19 B mmg: Neg 11/11/19 CT chest: Stable small pulmonary nodules. No additional fu rec'd in non- smoker. No acute process. 06/12/20 B mmg: Neg 07/05/20 Dr. Paz, Endocrinology, R thyroid FNA benign, further followup not indicated. 07/19/21 B mmg: Neg Subjective: New lumps in L breast (@ 2:00 & @ 3:00) which she has noticed over past 3 wks. Lump@ 2:00 is tender. ROM arms around shoulders ok. No hand/arm swelling. Energy level good. Past Medical History: Diagnosis Date ??? Anxiety ??? Asthma ??? Cancer Breast Cancer ??? Chronic anxiety ??? CPAP (continuous positive airway pressure) dependence ??? Environmental allergies ??? Gastroesophageal reflux ??? GERD (gastroesophageal reflux disease) ??? High blood pressure ??? HTN (hypertension) ??? Hypercholesteremia ??? Hyperlipidemia ??? Motion sickness ??? Obstructive sleep apnea ??? Status post radiation therapy ??? Thyroid nodule No collagen vasc dz. Past Surgical History: Procedure Laterality Date ??? BREAST REDUCTION SURGERY Bilateral 1995 ??? JOINT REPLACEMENT Left knee 05/02/15, Right Knee 11/25/17 ??? KNEE SURGERY Bilateral ??? MAMMO STEREOTACTIC BIOPSY LEFT N/A 05/10/2018 Mammo Stereotactic Biopsy Left 05/10/2018 Jinny Gutierrez MD [facility] RAD MAMMOGRAPHY ??? PRO MASTECTOMY PARTIAL Left 06/24/2018 MASTECTOMY PARTIAL (WRVU 10.13) performed by Frances Zee MD at [facility] MAIN OR ??? PRO REVISE KNEE JOINT REPLACE, ALL PARTS Left 02/15/2021 TOTAL KNEE REVISION ARTHROPLASTY, COMPLETE (WRVU 27.11) performed by Al Mendez MD at [facility] MAIN OR Your Medications Accurate as of April 21, 2022 2:45 PM. If you have any questions, ask your nurse or doctor. Continued medications with new dosing Dose Details naproxen 500 mg Tab Commonly known as: NAPROSYN Take 1 tablet by mouth 2 times daily as needed (pain). Take with food for up to 6 weeks after surgery. What changed: ?? how much to take ?? when to take this 500 mg Quantity: 84 tablet Refills: 0 Continued medications, unchanged Dose Details albuteroL 90 mcg/actuation Hfaa Inhale 2 puffs into the lungs every 4 hours as needed for Wheezing. Use with spacer 2 puff Refills: 0 ALPRAZolam 0.5 mg Tab Commonly known as: Xanax Take 0.5 mg by mouth daily as needed. 0.5 mg Refills: 0 atorvastatin 40 mg Tab Commonly known as: Lipitor Take 40 mg by mouth nightly. 40 mg Refills: 0 benazepriL 10 mg Tab Commonly known as: LOTENSIN Take 20 mg by mouth daily. 20 mg Refills: 0 budesonide-formoteroL 80-4.5 mcg/actuation Hfaa Commonly known as: Symbicort Inhale 2 puffs into the lungs once as needed. 2 puff Refills: 0 calcium-vitamin D3 600 mg-5 mcg (200 unit) Tab Take 1,200 mg by mouth daily. 1,200 mg Refills: 0 cetirizine 10 mg Tab Commonly known as: ZyrTEC Take 10 mg by mouth daily. 10 mg Refills: 0 citalopram 20 mg Tab Commonly known as: CeleXA Take 30 mg by mouth every morning. 30 mg Refills: 0 EPINEPHrine 0.3 mg/0.3 mL Atin Inject 0.3 mg into the muscle as needed. 0.3 mg Refills: 0 hydroCHLOROthiazide 25 mg Tab Commonly known as: Hydrodiuril Take 25 mg by mouth daily. 25 mg Refills: 0 lamoTRIgine 25 mg Tab Commonly known as: LaMICtal Take 50 mg by mouth 2 times daily. 50 mg Refills: 0 metFORMIN 500 mg Tab Commonly known as: Glucophage TAKE ONE TABLET BY MOUTH EVERY DAY Refills: 0 multivitamin Tab Commonly known as: THERAGRAN Take 1 tablet by mouth daily. 1 tablet Refills: 0 omeprazole 20 mg Cpdr Commonly known as: PriLOSEC Take 20 mg by mouth daily. 20 mg Refills: 0 Vitamin D 1,000 unit Tab TK 1 T PO D Generic drug: cholecalciferol Refills: 0 P&SHx: Never smoker. Physical Exam Constitutional: General: She is not in acute distress. Comments: BP 141/73 (Patient Position: Sitting) Pulse 97 Temp 36.5 ??C (97.7 ??F) (Temporal) Wt (!) 138 kg (304 lb 3.2 oz) SpO2 99% BMI 57.51 kg/m?? HENT: Head: Normocephalic. Eyes: General: No scleral icterus. Right eye: No discharge. Left eye: No discharge. Extraocular Movements: Extraocular movements intact. Conjunctiva/sclera: Conjunctivae normal. Pulmonary: Effort: Pulmonary effort is normal. No respiratory distress. Breath sounds: No stridor. Chest: Breasts: Right: No inverted nipple, mass, nipple discharge, skin change or tenderness. Left: No inverted nipple, mass (2 cm prominence @ 2:00, 2 cm from nipple & 4 cm soft prominence@ 3:00, 15 cm from nipple, in low axilla), nipple discharge, skin change or tenderness. Abdominal: [...] Content: Thought content normal. Judgment: Judgment normal. A/P: New patient detected lumps. Lump @ 2:00 might be normal soft tissue overlying a rib & lump@ 3:00 might be normal soft tissue. Will obtain US L breast & dx'ic L mmg for further eval. If US & dx'ic L mmg neg, will refer to PT for likely lymphedema of L breast which is contributing to tenderness. Rtc 6 mos. 30 mins in encounter. documented in this encounter Plan of Treatment Upcoming Encounters Date Type Department Care Team (Late st Contact Info) Description 05/30/2024 10:00 AM EST Appointment Mammography/[place] [address] Alicia Quinteros MD [facility] [place] [address] 08/11/2024 4:15 PM EST Office Visit Dermatology at [address] [place] [address] Jhon Giron MD [address] [place] [address] RD, [place] [address] 11/21/2024 2:00 PM EDT Office Visit Radiation Oncology at [address] [phone] Alicia Quinteros MD [facility] [place] [address] 10/06/2029 Hospital Encounter [place] [address] Al Mendez MD [facility] [place] [address] Scheduled Procedures Name Priority Associated Diagnoses Date/Ti me @TOTAL KNEE REVISION ARTHROP LASTY, COMPLETE (WRVU 27.11) Instability Right TKA MODIFIER,GMK REVISION KNEE,MEDACTA Instability Right TKA documented as of this encounter Results * US Breast Limited [...] who have questions please contact the health director of medicare that requested your imaging first. ? Electronically signed by: Joaquina Sykes [facility] ([phone]), at 05/06/2022 4:31 PM Alicia Quinteros MD IMG MAMMO ORDERABLES * Mammo Diagnostic Cad and [place] Left (05/06/2022 3:02 PM EST) Anatomical Region Laterality Modality Breast [...] who have questions please contact the health director of medicare that requested your imaging first. ? Electronically signed by: Joaquina Sykes [facility] ([phone]), at 05/06/2022 4:31 PM Alicia Quinteros MD IMG MAMMO ORDERABLES documented in this encounter Visit Diagnoses Diagnosis Breast lump on left side at 2 o'clock position Lump or mass in breast Breast lump on left side at 3 o'clock position Lump or mass in breast Breast lump on left side at 2 o'clock position Lump or mass in breast Breast lump on left side at 3 o'clock position Lump or mass in breast Breast lump on left side at 2 o'clock position Lump or mass in breast Breast lump on left side at 3 o'clock position Lump or mass in breast documented in this encounter Care Teams Household Chores Relationship Specialty Start Date End Date Bhaskar Morales MD PCP - General Family Medicine 12/18/20 documented as of this encounter
--- OUTSIDE RECORDS SUMMARY | 2024-04-14 10:36 | XMS_ITS | Encounter Summary ---
Author Organization [facility] [place] [place] [address] Care Team Providers Care Tiller Man Name Role Phone Bhaskar Morales MD Primary Care Provider [phone] Encounter Details Date Type Department Care Team (Latest Contact Info) Description 12/22/2022 Travel Social History Tobacco Use Types Packs/Day [...] 05/30/2024 10:00 AM EST Appointment Mammography/[place] [address] Alicia Quinteros MD [facility] [place] [address] 08/11/2024 4:15 PM EST Office Visit Dermatology at [address] [place] [phone] Jhon Giron MD [address], [place] [address] 11/21/2024 2:00 PM EDT Office Visit Radiation Oncology at [address] [phone] Alicia Quinteros MD [facility] [place] [address] 10/06/2029 Hospital Encounter [place] [address] Al Mendez MD [facility] [place] [address] Scheduled Procedures Name Priority Associated Diagnoses Date/Ti me @TOTAL KNEE REVISION ARTHROP LASTY, COMPLETE (WRVU 27.11) Instability Right TKA MODIFIER,GMK REVISION KNEE,MEDACTA Instability Right TKA documented as of this encounter Visit Diagnoses Not on filedocumented in this encounter Care Teams Tiller Man Relationship Specialty Start Date End Date Bhaskar Morales MD PCP - General Family Medicine 12/18/20 documented as of this encounter
--- OUTSIDE RECORDS SUMMARY | 2024-04-14 10:36 | XMS_ITS | Encounter Summary ---
Author Organization [facility] [place] [address] Care Team Providers Care Cook Short Order Name Role Phone Bhaskar Morales MD Primary Care Provider [phone] Encounter Details Date Type Department Care Team (Latest Contact Info) Description 05/06/2022 1:33 PM EST - 05/06/2022 2:20 PM EST Hospital En[place] [address] Alicia Quinteros MD [facility] [place] [address] Breast lump on left side at 2 [...] 05/30/2024 10:00 AM EST Appointment Mammography/[place] [address] Alicia Quinteros MD [facility] [place] [address] 08/11/2024 4:15 PM EST Office Visit Dermatology at [place] [address] [place] [phone] Jhon Giron MD [address], [place] [address] 11/21/2024 2:00 PM EDT Office Visit Radiation Oncology at [address] [phone] Alicia Quinteros MD [facility] [place] [address] 10/06/2029 Hospital Encounter [place] [address] Al Mendez MD [facility] [place] [address] Scheduled Procedures Name Priority Associated Diagnoses Date/Ti me @TOTAL KNEE REVISION ARTHROP LASTY, COMPLETE (WRVU 27.11) Instability Right TKA MODIFIER,GMK REVISION KNEE,MEDACTA Instability Right TKA documented as of this encounter Procedures Procedure Name Priority Date/Time Associated Diagnosis Comments MAMMO DIAGNOSTIC CAD AND IVELISSE LEFT Routine 05/06/2022 3:02 PM EST Breast lump on left side at 2 o'clock position Breast lump on left side at 3 o'clock position documented in this encounter Results * Mammo Diagnostic Cad and Ivelisse Left (05/06/2022 3:02 PM EST) Anatomical Region [...] who have questions please contact the health career center advisor that requested your imaging first. ? Alicia Quinteros MD IMG MAMMO ORDERABLES documented in this encounter Visit Diagnoses Diagnosis Breast lump on left side at 2 o'clock position Lump or mass in breast Breast lump on left side at 3 o'clock position Lump or mass in breast documented in this encounter Care Teams Cook Short Order Relationship Specialty Start Date End Date Bhaskar Morales MD PCP - General Family Medicine 12/18/20 documented as of this encounter
--- OUTSIDE RECORDS SUMMARY | 2024-04-14 10:36 | XMS_ITS | Encounter Summary ---
Author Organization [facility], [facility]–[address] [place] [address] Care Team Providers Care Fitting Room Inspector Name Role Phone Bhaskar Morales MD Primary Care Provider [phone] Encounter Details Date Type Department Care Team (Latest Contact Info) Description 05/15/2023 2:11 PM EST - 05/15/2023 11:59 PM EST Hospital Encounter Mammography[place] [phone] Alicia Quinteros MD [facility] [place] [address] Breast cancer screening by mammogram Discharge Disposition: [...] 05/30/2024 10:00 AM EST Appointment Mammography[place] [phone] Alicia Quinteros MD [facility] [place] [address] 08/11/2024 4:15 PM EST Office Visit Dermatology at [place] [address] [place] [phone] Jhon Giron MD [address], [place] [address] 11/21/2024 2:00 PM EDT Office Visit Radiation Oncology at [address] [phone] Alicia Quinteros MD [facility] [place] [address] 10/06/2029 Hospital Encounter [place] [phone] Al Mendez MD [facility] [place] [address] Scheduled Procedures Name Priority Associated Diagnoses Date/Ti me @TOTAL KNEE REVISION ARTHROP LASTY, COMPLETE (WRVU 27.11) Instability Right TKA MODIFIER,GMK REVISION KNEE,MEDACTA Instability Right TKA documented as of this encounter Procedures Procedure Name Priority Date/Time Associated Diagnosis Comments MAMMO SCREENING CAD AND MILTON BILATERAL Routine 05/15/2023 3:23 PM EST Breast cancer screening by mammogram documented in this encounter Results * Mammo Screening Cad and Milton Bilateral (05/15/2023 3:23 PM EST) Anatomical Region Laterality Modality Breast Bilateral Mammography Impressions 05/18/2023 8:30 AM EST Stable post treatment changes. No mammographic evidence of malignancy. BI-RADS CATEGORY 2: Benign RECOMMENDATION: Routine screening. A result letter has been sent to this patient by the [facility]. * ??Regular screening mammograms starting at age 40 reduces the risk of from breast cancer. * ??Yearly screening provides the most benefit. Women should discuss with their provider their preferred breast cancer screening schedule. * ??Women should report any breast changes to a health care provider right away. * ??Some women, because of their family history, a genetic tendency, or other factors, should be screened with annual breast MRI as well as with mammograms. Thank you for letting us participate in the care of this patient. ??If you are a health care provider and have any questions regarding this report, please contact the number below. ??For patients who have questions please contact the health child care counselor that requested your imaging first. ? Narrative 05/18/2023 8:30 AM EST EXAMINATION: MAMMO SCREENING CAD AND MILTON BILATERAL REASON FOR EXAM: Screening. History of left breast cancer. TECHNIQUE: CC and MLO views were obtained of the bilateral breast(s). Computer aided detection was used. 3D tomosynthesis images were obtained in addition to 2D images. COMPARISON: Comparison was made to the prior relevant examinations. BREAST DENSITY: The breast tissue is heterogeneously dense, which may obscure small masses. FINDINGS: There are no suspicious microcalcifications, masses, or areas of distortion. There are post surgical changes in the left breast. Alicia Quinteros MD IMG MAMMO ORDERABLES documented in this encounter Visit Diagnoses Diagnosis Breast cancer screening by mammogram documented in this encounter Care Teams Fitting Room Inspector Relationship Specialty Start Date End Date Bhaskar Morales MD PCP - General Family Medicine 12/18/20 documented as of this encounter
--- OUTSIDE RECORDS SUMMARY | 2024-04-14 10:36 | XMS_ITS | Encounter Summary ---
Author Organization [place] [address] Care Team Providers Care Iron Handler Name Role Phone Bhaskar Morales MD Primary Care Provider [phone] Encounter Details Date Type Department Care Team (Latest Contact Info) Description 11/15/2023 Travel Social History Tobacco Use Types Packs/Day [...] 05/30/2024 10:00 AM EST Appointment Mammography/[place] [address] Alicia Quinteros MD [facility] [place] [address] 08/11/2024 4:15 PM EST Office Visit Dermatology at [address] [phone] Jhon Giron MD [address], [place] [address] 11/21/2024 2:00 PM EDT Office Visit Radiation Oncology at [address] [phone] Alicia Quinteros MD [facility] [place] [address] 10/06/2029 Hospital Encounter [place] [address] Al Mendez MD [facility] [place] [address] Scheduled Procedures Name Priority Associated Diagnoses Date/Ti me @TOTAL KNEE REVISION ARTHROP LASTY, COMPLETE (WRVU 27.11) Instability Right TKA MODIFIER,GMK REVISION KNEE,MEDACTA Instability Right TKA documented as of this encounter Visit Diagnoses Not on filedocumented in this encounter Care Teams Iron Handler Relationship Specialty Start Date End Date Bhaskar Morales MD PCP - General Family Medicine 12/18/20 documented as of this encounter
--- OUTSIDE RECORDS SUMMARY | 2024-04-14 10:36 | XMS_ITS | Clinical Summary ---
Author Organization [facility] [place] [address] Care Team Providers Care Sales Office Assistant Name Role Phone Bhaskar Morales MD Primary Care Provider [phone] Allergies Active Allergy Reactions Criticality Noted Date Comments Hymenoptera Allergenic Extract Anaphylaxis High 07/12/2018 Stinging insects Insect Venom 02/06/2021 Lactose 02/06/2021 Levonorgestrel-Ethinyl Estrad 02/06/2021 Penicillins 05/24/2018 PAT Penicillin Allergy Risk Assessment 02/06/2021: Low risk penicillin allergy. OK to receive full dose of cefazolin, cefuroxime, or any 3rd or 4th+ generation cephalosporin. PAT Clinic TANK TESTER to place Allergy referral for formal penicillin allergy evaluation. Patient is open to a consult by phone from allergy clinic. Poison Dalia Extract 02/06/2021 Venom-Honey Bee High 12/17/2020 Other reaction(s): Anaphylaxsis Medications Medication Sig Dispensed Refills Start Date End Date Status ALPRAZolam (XANAX) 0.5 mg Tablet Take 0.5 mg by mouth daily as needed. 0 04/12/2018 Active benazepril (LOTENSIN) 10 mg Tablet Take 20 mg by mouth daily. 0 03/07/2018 Active cetirizine (ZYRTEC) 10 mg Tablet Take 10 mg by mouth daily. 0 05/07/2018 Active EPINEPHrine 0.3 mg/0.3 mL Auto-Injector Inject 0.3 mg into the muscle as needed. 0 03/23/2018 Active omeprazole (PRILOSEC) 20 mg Capsule, Delayed Release(E.C.) Take 20 mg by mouth daily. 0 03/07/2018 Active calcium-vitamin D3 600 mg(1,500mg) -200 unit Tablet Take 1,200 mg by mouth daily. Active multivitamin (THERAGRAN) Tablet Take 1 tablet by mouth daily. Active budesonide-formotero l (SYMBICORT) 80-4.5 mcg/actuation HFA Aerosol Inhaler Inhale 2 puffs into the lungs once as needed. Active albuterol 90 mcg/actuation HFA Aerosol Inhaler Inhale 2 puffs into the lungs every 4 hours as needed for Wheezing. Use with spacer Active Vitamin D 25 mcg (1,000 unit) Tablet TK 1 T PO D 07/04/2019 Acti ve metFORMIN (Glucophage) 500 mg Tablet TAKE ONE TABLET BY MOUTH EVERY DAY 12/19/2020 Active lamoTRIgine (LaMICtal) 25 mg Tablet Take 50 mg by mouth 2 times daily. Active atorvastatin (Lipitor) 40 mg Tablet Take 40 mg by mouth nightly. Active hydroCHLOROthiazide (Hydrodiuril) 25 mg Tablet Take 25 mg by mouth daily. 01/08/2022 Active gabapentin (Neurontin) 100 mg CapsuleIndications:A dult BMI 50.0-59.9 kg/sq m,Chronic bilateral low back pain with bilateral sciatica,Radiculopat hy of lumbar region Take 1 capsule by mouth 3 times daily. 90 capsule 12 07/09/2022 Active Ozempic 0.25 mg or 0.5 mg (2 mg/3 mL) Pen Injector 11/15/2022 Active ibuprofen/acetaminop hen (ADVIL DUAL ACTION ORAL) Take by mouth. Active venlafaxine XR (Effexor-XR) 37.5 mg ER 24 hr capsule Take 150 mg by mouth daily. 10/17/2022 Active ferrous sulfate (IRON ORAL) Take by mouth. Active hydroCHLOROthiazide 12.5 mg tablet Take 1 tablet by mouth Daily at Noon. 01/07/2024 Active Mounjaro 5 mg/0.5 mL Pen Injector INJECT 5 MG UNDER THE SKIN ONCE WEEKLY 02/03/2024 Active Active Problems Problem Noted Date Diagnosed Date 02/15/2021 S/P revision of left total knee (Dr. Jc vanegas) 02/16/2021 Failed total knee, left 02/15/2021 Obstructive sleep apnea syndrome 02/06/2021 Insomnia 07/07/2019 Asthma 07/01/2019 Gastroesophageal reflux disease 07/01/2019 History of renal calculi 07/01/2019 Hyperlipidemia 07/01/2019 Essential hypertension 07/01/2019 Abnormal glucose level 07/01/2019 Adult BMI 50.0-59.9 kg/sq m 07/01/2019 Lactose intolerance 07/01/2019 Ductal carcinoma in situ (DCIS) of left breast 0 06/09/2018 Allergic rhinitis 04/19/2014 Encounters Date Type Department Care Team Description 02/24/2024 3:00 PM EDT Office [place] [address] Al Mendez MD 02/15/2021 S/P revision of left total knee (Dr. Mendez); Presence of right artificial knee joint; Pain of right lower extremity; Chronic instability of right knee 02/24/2024 2:00 PM EDT - 02/24/2024 11:59 PM EDT Hospital Encounter XRay at [address] [place] [address] Al Mendez MD 02/15/2021 S/P revision of left total knee (Dr. Mendez); Presence of right artificial knee joint Discharge Disposition: Home 02/23/2024 Travel 02/22/2024 [place] [address] Al Mendez MD 02/15/2021 S/P revision of left total knee (Dr. Mendez); Presence of right artificial knee joint from Last 3 Months Family History Medical History Relation Comments Cancer Father Prostate Cancer Father Breast Cancer Neg Hx Ovarian Cancer Neg Hx Relation Status Comments Brother Alive Father Alive Mother Alive Sister Alive Social History Tobacco Use Types Packs/Day Years Used Date Smoking Tobacco: Never Smokeless Tobacco: Never Alcohol Use Standard Drinks/Week Comments Never 0 (1 standard drink = 0.6 oz pur e alcohol) Sex and Gender Information Value Date Recorded Sex Assigned at Female 07/24/2020 2:32 PM EST Gender Identity Not on file Sexual Orientation Straight 07/24/2020 2: 32 PM EST Last Filed Vital Signs Vital Sign Reading Time Taken Comments Blood Pressure 174/89 05/18/2023 2:47 PM EST Pulse 103 05/18/2023 2:47 PM EST Temperature 37 ??C (98.6 ??F) 05/18/2023 2:47 PM EST Respiratory Rate 20 05/18/2023 2:47 PM EST Oxygen Saturation 98% 05/18/2023 2:47 PM EST Inhaled Oxygen Concentration - - Weight 120.2 kg (265 lb) 02/24/2024 2:45 PM EDT Height 154.9 cm (5' 1) 02/24/2024 2:45 PM EDT Body Mass Index 50.07 02/24/2024 2:45 PM EDT Plan of Treatment Upcoming Encounters Date Type Department Care Team (Late st Contact Info) Description 05/30/2024 10:00 AM EST Appointment Mammography/[place] [phone] Alicia Quinteros MD [facility] [place] [address] 08/11/2024 4:15 PM EST Office Visit Dermatology at [address] [place] [phone] Jhon Giron MD [address] [place] [address], [place] [address] 11/21/2024 2:00 PM EDT Office Visit Radiation Oncology at [address] [phone] Alicia Quinteros MD [facility] [place] [address] 10/06/2029 Hospital Encounter [place] [phone] Al Mendez MD [facility] [place] [address] Scheduled Procedures Name Priority Associated Diagnoses Date/Ti me @TOTAL KNEE REVISION ARTHROP LASTY, COMPLETE (WRVU 27.11) Instability Right TKA MODIFIER,GMK REVISION KNEE,MEDACTA Instability Right TKA Health Maintenance Due Date Last Done Comments CT Colonography 1965 Colonoscopy 1965 Colorectal Cancer Screening 1965 FIT DNA 1965 FIT 1965 Sigmoidoscopy (10 year) with FIT yearly 1965 Sigmoidoscopy 1965 Pneumococcal Vaccine: At-Ris k 5-64yrs (1 of 2 - PCV) 09/26/1971 HIV screen 09/26/1983 Hepatitis C Screening 09/26/1983 Hepatitis B vaccine (0-59 yrs) (1) 1984 Tetanus/Diphtheria/Pertussis Vaccines (1 - Tdap) 1984 HPV test 09/26/1995 PAP Smear 09/26/1995 Breast Cancer Share Decision Needed 2005 Zoster vaccine (1 of 2) 09/26/2015 Advance Directive 2020 Covid-19 Vaccine (1 - season) 2024 Influenza (Flu) vaccine (1 o f 1 - Influenza standard series) 02/07/2024 Diabetes Screening (HgbA1C o r Glucose) 02/17/2024 02/16/2021, 02/06/2021 Breast Cancer screening 05/15/2025 05/15/20 23, 12/23/2022, 07/19/2021 Medical Devices Implanted Type Area Tennis Ball Cover Cementer Device Identifier Shelf Expiration Date Model / Serial / Lot Breast Clip- 2 Implanted:Qty : 1 on 05/08/2022 by Joaquina Sykes MD Breast Clip Left: Breast [id number] / / [id number] Description:MARISOL Cement Bone Medium Viscosity 40gm Gentamicin Single Dose ([id number]) - [id number] Implanted:Qty : 1 on 02/15/2021 by Al Mendez MD at [facility] IMPLANTS Left: Knee [facility] [id number] 08/05/2022 5450-50- 501 / / [id number] Insert Tibial 20mm Sz 2 Fix Poly Gmk ([id number]) (Autoreq) - [id number] Implanted:Qty : 1 on 02/15/2021 by Al Mendez MD at [facility] IMPLANTS Left: Knee [employer] [place] - [employer] [id number] 05/21/2025 02.07.02 20SCF / / Stem Ext Knee 10k25ue Por Fluted Cocr ([id number]) (Autoreq) - [id number] Implanted:Qty : 1 on 02/15/2021 by Al Mendez MD at [facility] IMPLANTS Left: Knee [employer] [place] - [employer] 07.15.FC [id number] / / [id number] Cement Bone Medium Viscosity 40gm Gentamicin Single Dose (4924904) - [id number] Implanted:Qty : 1 on 02/15/2021 by Al Mendez MD at [facility] IMPLANTS Left: Knee MARY & [employer] Medical [facility] [id number] 05/07/2022 5450-50- 501 / / [id number] Comp Femoral Knee Sz 2 Left Fransisco Ps Cocr ([id number]) (Autoreq) - [id number] Implanted:Qty : 1 on 02/15/2021 by Al Mendez MD at [facility] IMPLANTS Left: Knee [employer] [place] [employer] [id number] 02/12/2025 02.07.24 03L / / [id number] Augment Fem Knee 12mm Size 3 Dist Ti Gmk (0575938) (Autoreq) - [id number] Implanted:Qty : 1 on 02/15/2021 by Al Mendez MD at [facility] IMPLANTS Left: Knee [employer] [place] [employer] [id number] 11/24/2022 02.07.31 2FDA / / [id number] Baseplate Tibial Sz 2 Left Fransisco Cocr Gmk ([id number]) (Autoreq) - [id number] Implanted:Qty : 1 on 02/15/2021 by Al Mendez MD at [facility] IMPLANTS Left: Knee [employer] [place] [employer] [place] [id number] 02/15/2025 02.07.06 82L / / [id number] Femoral Component Adapter Knee 3mm Fransisco (5281252) (Autoreq) - [id number] Implanted:Qty : 1 on 02/15/2021 by Al Mendez MD at [facility] IMPLANTS Left: Knee [employer] [place] [employer] [place] [id number] 08/26/2025 02.07.00 / Femoral Component Adapter Knee 5mm Fransisco ([id number]) (Autoreq) - [id number] Implanted:Qty : 1 on 02/15/2021 by Al Mendez MD at [facility] IMPLANTS Left: Knee [employer] [place] [employer] [place] [id number] 08/22/2025 02.07.00 / [id number] Stem Ext Knee 80v96js Por Fluted Cocr (0621471) (Autoreq) - [id number] Implanted:Qty : 1 on 02/15/2021 by Al Mendez MD at [facility] IMPLANTS Left: Knee [employer] [place] [employer] [place] [id number] 04/14/2023 02.07.FC [id number] / / [id number] Wedge Fem Knee 8mm Size 3 Dist Ti Gmk ([id number]) (Autoreq) - [id number] Implanted:Qty : 1 on 02/15/2021 by Al Mendez MD at [facility] IMPLANTS Left: Knee [employer] [place] [employer] [id number] 03/29/2023 02.05.03 DW / / [id number] Procedures Procedure Name Priority Date/Time Associated Diagnosis Comments XR KNEE AP AND LAT BILAT Routine 02/24/2024 2:27 PM EDT 02/15/2021 S/P revision of left total knee (Dr. Mendez) Presence of right artificial knee joint MAMMO SCREENING CAD AND [place] BILATERAL Routine 05/15/2023 3:23 PM EST Breast cancer screening by mammogram BASIC METABOLIC PANEL Routine 02/16/2021 5:06 AM EDT from Last 3 Months or Most Recently Relevant to Health Maintenance Results * XR Knee 1-2 Views Bilat (Generic) (02/24/2024 2:27 PM EDT) [email or web address] WORKSTATION ID [id number] RAD Anatomical Region Laterality Modality Knee Bilateral Digital Radiogra phy Impressions 02/26/2024 11:33 PM EDT Unchanged and uncomplicated bilateral total knee arthroplasties. I have personally reviewed the image(s) and the resident's interpretation and agree with the findings, Héctor Tadeo MD at 02/26/2024 11:33 PM Thank you for letting us participate in the care of this patient. ??If you are a health care provider and have any questions regarding this report, please contact the number below. ??For patients who have questions please contact the health director of critical care that requested your imaging first. ? Narrative 02/26/2024 11:33 PM EDT EXAMINATION: XR KNEE 1-2 VIEWS BILAT (GENERIC) CLINICAL HISTORY: Hx Bilat TKA Z96.652, Presence of left artificial knee joint - Z96.651, Presence of right artificial knee joint TECHNIQUE: 2 views BILATERAL knee, 4 images COMPARISON: Knee standing alignment 03/26/2022. FINDINGS: Right knee: Status post right total knee arthroplasty. Hardware is intact and in unchanged position. No perihardware fracture or lucency. Unchanged alignment of the right knee. No joint effusion. Left knee: Revised left total knee arthroplasty with constrained prosthesis . Intact and unchanged position. No periprosthetic or fracture or lucency. Unchanged alignment of the left knee. No knee joint effusion. Procedure Note Héctor Tadeo MD - 02/26/2024 EXAMINATION: XR KNEE 1-2 VIEWS BILAT (GENERIC) CLINICAL HISTORY: Hx Bilat TKA Z96.652, Presence of left artificial knee joint - Z96.651, Presence ofright artificial knee joint TECHNIQUE: 2 views BILATERAL knee, 4 images COMPARISON: Knee standing alignment 03/26/2022. FINDINGS: Right knee: Status post right total knee arthroplasty. Hardware is intact and inunchanged position. No perihardware fracture or lucency. Unchanged alignment of the right knee. No joint effusion. Left knee: Revised left total knee arthroplasty with constrained prosthesis . Intactand unchanged position. No periprosthetic or fracture or lucency. Unchanged alignment of the left knee. No knee joint effusion. IMPRESSION Unchanged and uncomplicated bilateral total knee arthroplasties. I have personally reviewed the image(s) and the resident's interpretationand agree with the findings, Héctor Tadeo MD at 02/26/2024 11:33 PM Thank you for letting us participate in the care of this patient. If youare a health care provider and have any questions regarding this report,please contact the number below. For patients who have questions please contactthe health director of critical care that requested your imaging first. Al Mendez MD IMG DX ORDERABLES * Mammo Screening Cad and Milton Bilateral [...] questions please contact the health director of critical care that requested your imaging first. ? Narrative [...] in the left breast. Alicia Quinteros MD [facility] MAMMO ORDERABLES * Basic Metabolic Panel (non-fasting) (02/16/2021 5:06 AM EDT) Glucose 150 65 - 199 mg/dL [facility] Comment:Diabetes: >=200 mg/d L plus symptoms Blood Urea Nitrogen 14 8 - 18 mg/dL [facility] Creatinine 0.73 0.70 - 1.20 mg/dL [facility] Sodium 138 135 - 145 mmol/L [facility] Potassium 4.1 3.5 - 5.0 mmol/L [facility] Comment: Please note: ??Patients with WBC >100,000 may have falsely elevated Potassium levels. ??For accurate Potassium quantification in these patients send serum separator tube (gold top) for subsequent determinations. ??Contact the Clinical Chemistry Laboratory if there are any questions. Chloride 102 98 - 107 mmol/L [facility] Carbon Dioxide 27 22 - 31 mmol/L [facility] Anion Gap 9 5 - 15 mmol/L [facility] Calcium 9.3 8.5 - 10.5 mg/dL [facility] Est Glomerular Filtration Rate 93 >=60 mL/min/1. 73 m?? [facility] Comment: This patient? s estimated glomerular filtration rate (eGFR) is between 93 mL/min/1.73 m2 (patients with less muscle mass) and 107 mL/min/1.73 m2 (patients with more muscle mass) as determined by the CKD-EPI equation. Assessment of eGFR is not appropriate when creatinine concentrations are rapidly changing. For clinical decisions where creatinine clearance will affect therapy, a 24-hour urine creatinine clearance may be advised. Assignment of CKD stage 1 - 5 for patients with an eGFR near the transition point between stages may be based on clinical assessment of muscle mass and symptoms in addition to eGFR. 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
--- OUTSIDE RECORDS SUMMARY | 2024-04-14 10:36 | XMS_ITS | Encounter Summary ---
[place] [address] Care Team Providers Care Chief Nursing Officer Name Role Phone Bhaskar Morales MD Primary Care Provider [phone] Encounter Details Date Type Department Care Team (Late Contact Info) Description 02/22/2024 Orders [place] [phone] Al Mendez MD [facility] [place] [address] 02/15/2021 S/P revision of left total knee (Dr. Mendez); Presence of right artificial knee joint Social History Tobacco Use Types Packs/Day Years [...] 05/30/2024 10:00 AM EST Appointment Mammography/[place] [phone] Alicia Quinteros MD [facility] [place] [address] 08/11/2024 4:15 PM EST Office Visit Dermatology at [place] [address] [place] [address] Jhon Giron MD [address], [place] [address] 11/21/2024 2:00 PM EDT Office Visit Radiation Oncology at [address] [phone] Alicia Quinteros MD [facility] [place] [address] 10/06/2029 Hospital Encounter [place] [address] Al Mendez MD [facility] [place] [address] Scheduled Procedures Name Priority Associated Diagnoses Date/Ti me @TOTAL KNEE REVISION ARTHROP LASTY, COMPLETE (WRVU 27.11) Instability Right TKA MODIFIER,GMK REVISION KNEE,MEDACTA Instability Right TKA documented as of this encounter Visit Diagnoses Diagnosis 02/15/2021 S/P revision of left total knee (Dr. Mendez) Presence of right artificial knee joint Knee joint replacement by other means documented in this encounter Care Teams Chief Nursing Officer Relationship Specialty Start Date End Date Bhaskar Morales MD PCP - General Family Medicine 12/18/20 documented as of this encounter
--- OUTSIDE RECORDS SUMMARY | 2024-04-14 10:36 | XMS_ITS | Encounter Summary ---
Author Organization [facility] [place] [address] Care Team Providers Care Technician Preventative Medicine Name Role Phone Bhaskar Morales MD Primary Care Provider [phone] Encounter Details Date Type Department Care Team (Latest Contact Info) Description 08/06/2023 Travel Social History Tobacco Use Types Packs/Day [...] 05/30/2024 10:00 AM EST Appointment Mammography/[place] [address] Alicia Quinteros MD [facility] [place] [address] 08/11/2024 4:15 PM EST Office Visit Dermatology at [address] [place] [phone] Jhon Giron MD [address], [place] [address] 11/21/2024 2:00 PM EDT Office Visit Radiation Oncology at [address] [phone] Alicia Quinteros MD [facility] [place] [address] 10/06/2029 Hospital Encounter [place] [address] Al Mendez MD [facility] [place] [address] Scheduled Procedures Name Priority Associated Diagnoses Date/Ti me @TOTAL KNEE REVISION ARTHROP LASTY, COMPLETE (WRVU 27.11) Instability Right TKA MODIFIER,GMK REVISION KNEE,MEDACTA Instability Right TKA documented as of this encounter Visit Diagnoses Not on filedocumented in this encounter Care Teams Technician Preventative Medicine Relationship Specialty Start Date End Date Bhaskar Morales MD PCP - General Family Medicine 12/18/20 documented as of this encounter
--- OUTSIDE RECORDS SUMMARY | 2024-04-14 10:36 | XMS_ITS | Encounter Summary ---
Author Organization [facility] [place] [place] [address] Care Team Providers Care Blacksmith Assistant Name Role Phone Bhaskar Morales MD Primary Care Provider [phone] Encounter Details Date Type Department Care Team (Latest Contact Info) Description 07/03/2022 Travel Social History Tobacco Use Types Packs/Day [...] 05/30/2024 10:00 AM EST Appointment Mammography/[place] [address] Alicia Quinteros MD [facility] [place] [address] 08/11/2024 4:15 PM EST Office Visit Dermatology at [address] [place] [phone] Jhon Giron MD [address], [place] [address] 11/21/2024 2:00 PM EDT Office Visit Radiation Oncology at [address] [phone] Alicia Quinteros MD [facility] [place] [address] 10/06/2029 Hospital Encounter [place] [address] Al Mendez MD [facility] [place] [address] Scheduled Procedures Name Priority Associated Diagnoses Date/Ti me @TOTAL KNEE REVISION ARTHROP LASTY, COMPLETE (WRVU 27.11) Instability Right TKA MODIFIER,GMK REVISION KNEE,MEDACTA Instability Right TKA documented as of this encounter Visit Diagnoses Not on filedocumented in this encounter Care Teams Blacksmith Assistant Relationship Specialty Start Date End Date Bhaskar Morales MD PCP - General Family Medicine 12/18/20 documented as of this encounter
--- OUTSIDE RECORDS SUMMARY | 2024-04-14 10:36 | XMS_ITS | Encounter Summary ---
Author Organization [facility] [place] [address] Care Team Providers Care Elementary Education Teacher Name Role Phone Bhaskar Morales MD Primary Care Provider [phone] Encounter Details Date Type Department Care Team (Latest Contact Info) Description 05/18/2023 Travel Social History Tobacco Use Types Packs/Day [...] 05/30/2024 10:00 AM EST Appointment Mammography/[place] [address] Alicia Quinteros MD [facility] [place] [address] 08/11/2024 4:15 PM EST Office Visit Dermatology at [address] [place] [phone] Jhon Giron MD [address], [place] [address] 11/21/2024 2:00 PM EDT Office Visit Radiation Oncology at [address] [phone] Alicia Quinteros MD [facility] [place] [address] 10/06/2029 Hospital Encounter [place] [address] Al Mendez MD [facility] [place] [address] Scheduled Procedures Name Priority Associated Diagnoses Date/Ti me @TOTAL KNEE REVISION ARTHROP LASTY, COMPLETE (WRVU 27.11) Instability Right TKA MODIFIER,GMK REVISION KNEE,MEDACTA Instability Right TKA documented as of this encounter Visit Diagnoses Not on filedocumented in this encounter Care Teams Elementary Education Teacher Relationship Specialty Start Date End Date Bhaskar Morales MD PCP - General Family Medicine 12/18/20 documented as of this encounter
--- OUTSIDE RECORDS SUMMARY | 2024-04-14 10:36 | XMS_ITS | Encounter Summary ---
Author Organization [facility] Address [facility] [place] [address] Care Team Providers Care Director Of Customer Service Name Role Phone Bhaskar Morales MD Primary Care Provider [phone] Encounter Details Date Type Department Care Team (Late st Contact Info) Description 02/24/2024 2:00 PM EDT - 02/24/2024 11:59 PM EDT Hospital Encounter XRay at [address] [place] [address] Al Mendez MD [facility] [place] [address] 02/15/2021 S/P revision of left total knee (Dr. Mendez); Presence of right artificial knee joint Discharge Disposition: Home Social History Tobacco Use [...] Sig Dispensed Refills Start Date End Date hydroCHLOROthiazide 12.5 mg tablet Take 1 tablet by mouth Daily at Noon. 01/07/2024 Mounjaro 5 mg/0.5 mL Pen Injector INJECT 5 MG UNDER THE SKIN ONCE WEEKLY 02/03/2024 ferrous sulfate (IRON ORAL) Take by mouth. ibuprofen/acetaminophen (ADVIL DUAL ACTION ORAL) Take by [...] Pen Injector 11/15/2022 gabapentin (Neurontin) 100 mg CapsuleIndications:Adult BMI 50.0-59.9 kg/sq m,Chronic bilateral low back pain with bilateral sciatica,Radiculopathy of lumbar region Take 1 capsule by mouth 3 times daily. 90 capsule 12 07/09/2022 hydroCHLOROthiazide (Hydrodiuril) 25 mg Tablet Take 25 mg by mouth daily. 01/08/2022 albuterol 90 mcg/actuation HFA Aerosol Inhaler Inhale 2 puffs into the lungs every 4 hours as needed for Wheezing. Use with spacer documented as of this encounter Plan of Treatment Upcoming Encounters Date Type Department Care Team (Late st Contact Info) Description 05/30/2024 10:00 AM EST Appointment Mammography/[place] [address] Alicia Quinteros MD [facility] [place] [address] 08/11/2024 4:15 PM EST Office Visit Dermatology at [place] [address] [facility] [place] [phone] Jhon Giron MD [address] [place] [address] RD, [place] [address] 11/21/2024 2:00 PM EDT Office Visit Radiation Oncology at [address] [address] Alicia Quinteros MD [facility] [place] [address] 10/06/2029 Hospital Encounter [place] [address] Al Mendez MD [facility] [place] [address] Scheduled Procedures Name Priority Associated Diagnoses Date/Ti [...] Mendez) Presence of right artificial knee joint documented in this encounter Results * XR Knee 1-2 Views Bilat (Generic) (02/24/2024 2:27 PM EDT) [employer] Signature WORKSTATION ID [id number] RAD Anatomical Region Laterality Modality Knee Bilateral [...] who have questions please contact the health customer care voice consultant that requested your imaging first. ? Electronically signed by: Héctor Tadeo MD, [facility] ([phone]), at 02/26/2024 11:33 PM Narrative 02/26/2024 11:33 PM EDT EXAMINATION: XR [...] patients who have questions please contactthe health customer care voice consultant that requested your imaging first. Electronically signed by: Héctor Tadeo MD, [facility]([phone]), at 02/26/2024 11:33 PM Al Mendez MD IMG DX ORDERABLES documented in this encounter Visit Diagnoses Diagnosis 02/15/2021 S/P revision of left total knee (Dr. Mendez) Presence of right artificial knee joint Knee joint replacement by other means documented in this encounter Care Teams Director Of Customer Service Relationship Specialty Start Date End Date Bhaskar Morales MD PCP - General Family Medicine 12/18/20 documented as of this encounter
--- OUTSIDE RECORDS SUMMARY | 2024-04-14 10:36 | XMS_ITS | Encounter Summary ---
Author Organization [facility] [place] [address] Care Team Providers Care Television Specialist Name Role Phone Bhaskar Morales MD Primary Care Provider [phone] Encounter Details Date Type Department Care Team (Latest Contact Info) Description 04/21/2022 Travel Social History Tobacco Use Types Packs/Day [...] 05/30/2024 10:00 AM EST Appointment Mammography/[place] [address] Alicia Quinteros MD [facility] [place] [address] 08/11/2024 4:15 PM EST Office Visit Dermatology at [address] [place] [phone] Jhon Giron MD [address], [place] [address] 11/21/2024 2:00 PM EDT Office Visit Radiation Oncology at [address] [phone] Alicia Quinteros MD [facility] [place] [address] 10/06/2029 Hospital Encounter [place] [address] Al Mendez MD [facility] [place] [address] Scheduled Procedures Name Priority Associated Diagnoses Date/Ti me @TOTAL KNEE REVISION ARTHROP LASTY, COMPLETE (WRVU 27.11) Instability Right TKA MODIFIER,GMK REVISION KNEE,MEDACTA Instability Right TKA documented as of this encounter Visit Diagnoses Not on filedocumented in this encounter Care Teams Television Specialist Relationship Specialty Start Date End Date Bhaskar Morales MD PCP - General Family Medicine 12/18/20 documented as of this encounter
--- OUTSIDE RECORDS SUMMARY | 2024-04-14 10:36 | XMS_ITS | Encounter Summary ---
Author Organization [facility] [place] [address] Care Team Providers Care Furniture Upholsterer Name Role Phone Bhaskar Morales MD Primary Care Provider [phone] Encounter Details Date Type Department Care Team (Latest Contact Info) Description 02/23/2024 Travel Social History Tobacco Use Types Packs/Day [...] 05/30/2024 10:00 AM EST Appointment Mammography/[place] [address] Alicia Quinteros MD [facility] [place] [address] 08/11/2024 4:15 PM EST Office Visit Dermatology at [address] [place] [phone] Jhon Giron MD [address], [place] [address] 11/21/2024 2:00 PM EDT Office Visit Radiation Oncology at [address] [phone] Alicia Quinteros MD [facility] [place] [address] 10/06/2029 Hospital Encounter [place] [address] Al Mendez MD [facility] [place] [address] Scheduled Procedures Name Priority Associated Diagnoses Date/Ti me @TOTAL KNEE REVISION ARTHROP LASTY, COMPLETE (WRVU 27.11) Instability Right TKA MODIFIER,GMK REVISION KNEE,MEDACTA Instability Right TKA documented as of this encounter Visit Diagnoses Not on filedocumented in this encounter Care Teams Furniture Upholsterer Relationship Specialty Start Date End Date Bhaskar Morales MD PCP - General Family Medicine 12/18/20 documented as of this encounter
--- OUTSIDE RECORDS SUMMARY | 2024-04-14 10:36 | XMS_ITS | Encounter Summary ---
Author Organization [facility] [place] [address] Care Team Providers Care Special Education Curriculum Specialist Name Role Phone Bhaskar Morales MD Primary Care Provider [phone] Reason for Visit * Reason Comments Follow-up Encounter Details Date Type Department Care Team (Late st Contact Info) Description 11/16/2023 1:30 PM EDT Office Visit Radiation Oncology at [address] [address] Alicia Quinteros MD [facility] [place] [address] Breast cancer screening by mammogram; S/P radiotherapy [...] PM EST documented as of this encounter Patient Instructions * Patient Instructions* Alicia Quinteros MD - 11/16/2023 1:30 PM EDT Quin Mitchell. Your exam is without worrisome finding. You will be due for mammogram of both breasts after 05/15/24 & someone will contact you to schedule it. Someone will contact you to schedule followup in 1 year. Alicia documented in this encounter Progress Notes * Alicia Quinteros MD - 11/16/2023 1:30 PM EDT Images from the original note were not included. CC: Sched'd fu s/p xrt completion. HPI: Quin is a 58 y/o f who completed xrt 5 yrs, 2 mos ago (09/20/18) for breast ca, L, DCIS, gr 2,ER+ME+, 3.2 cm, +necrosis, s/p lumpectomy. 07/27/18 Dx'ic [...] 05/15/23 B mmg: Neg Subjective: No new pain/lump/swelling. Energy level good. Past Medical History: Diagnosis [...] Stereotactic Biopsy Left 05/10/2018 Jinny Gutierrez MD [facility] RAD MAMMOGRAPHY MAMMO US BIOPSY LEFT Left 05/08/2022 Mammo Us Biopsy Left 05/08/2022 Joaquina Sykes MD [facility] RAD MAMMOGRAPHY PRO MASTECTOMY PARTIAL Left 06/24/2018 MASTECTOMY PARTIAL (WRVU 10.13) performed by Frances Zee MD at [facility] MAIN OR PRO REVISE KNEE JOINT REPLACE, ALL PARTS Left 02/15/2021 TOTAL KNEE REVISION ARTHROPLASTY, COMPLETE (WRVU 27.11) performed by Al Mendez MD at [facility] MAIN OR Your Medications Accurate as of November 16, 2023 1:47 PM. If you have any questions, ask your nurse or doctor. Continued medications, unchanged Dose Details ADVIL DUAL ACTION ORAL Take by mouth. Refills: 0 albuteroL 90 mcg/actuation inhaler (HFA) Inhale 2 puffs into the lungs every [...] 20 mg Refills: 0 budesonide-formoteroL 80-4.5 mcg/actuation inhaler (HFA) Commonly known as: Symbicort Inhale 2 puffs [...] hydroCHLOROthiazide 25 mg tablet Commonly known as: HydroDiuril Take 25 mg by mouth daily. 25 [...] Pen Injector Generic drug: semaglutide Refills: 0 venlafaxine XR 37.5 mg ER 24 hr capsule Commonly known as: Effexor-XR Take 150 mg by mouth daily. 150 mg Refills: 0 Vitamin D 25 mcg (1,000 unit) tablet TK 1 T PO D Generic drug: cholecalciferoL Refills: 0 P&SHx: Never smoker. Physical Exam [...] normal. Judgment: Judgment normal. A: BIMAL P: B mmg due after 05/15/23, ordered. Rtc 1 yr. I certify spending at least 15 mins in providing care to this patient today as reflected by the following activities: - review of patient's medical record in the chart, including interpretation of imaging, laboratory and pathologic studies referenced above - documenting the outcome of today's visit as above documented in this encounter Plan of Treatment Upcoming Encounters Date Type Department Care Team (Late st Contact Info) Description 05/30/2024 10:00 AM EST Appointment Mammography/[place] [address] Alicia Quinteros MD [facility] [place] [address] 08/11/2024 4:15 PM EST Office Visit Dermatology at [place] [address] [place] [phone] Jhon Giron MD [address], [place] [address] 11/21/2024 2:00 PM EDT Office Visit Radiation Oncology at [address] [phone] Alicia Quinteros MD [facility] [place] [address] 10/06/2029 Hospital Encounter [place] [phone] Al Mendez MD [facility] [place] [address] Scheduled Orders Name Type Priority Associated Diagnoses Orde r Schedule Mammo Screening Cad and [place] Bilateral Imaging Routine Breast cancer screening by mammogram Expected: 05/16/2024, Expires: 05/17/2025 Scheduled Procedures Name Priority Associated Diagnoses Date/Ti me @TOTAL KNEE REVISION ARTHROP LASTY, COMPLETE (WRVU 27.11) Instability Right TKA MODIFIER,GMK REVISION KNEE,MEDACTA Instability Right TKA documented as of this encounter Visit Diagnoses Diagnosis Breast cancer screening by mammogram S/P radiotherapy Convalescence following radiotherapy documented in this encounter Care Teams Special Education Curriculum Specialist Relationship Specialty Start Date End Date Bhaskar Morales MD PCP - General Family Medicine 12/18/20 documented as of this encounter
--- OUTSIDE RECORDS SUMMARY | 2024-04-14 10:36 | XMS_ITS | Encounter Summary ---
Author Organization [facility] [place] [address] Care Team Providers Care Giving Officer Name Role Phone Bhaskar Morales MD Primary Care Provider [phone] Encounter Details Date Type Department Care Team (Latest Contact Info) Description 05/08/2022 1:50 PM EST - 05/08/2022 11:59 PM EST Hospital Encounter [place] [phone] Joaquina Sykes MD [facility] [place] [place] [address] Abnormal finding on breast imaging Discharge Disposition: [...] 05/30/2024 10:00 AM EST Appointment Mammography/[place] [address] Alicia Quinteros MD [facility] [place] [address] 08/11/2024 4:15 PM EST Office Visit Dermatology at [address] [place] [address] Jhon Giron MD [address], [place] [address] 11/21/2024 2:00 PM EDT Office Visit Radiation Oncology at [address] [phone] Alicia Quinteros MD [facility] [place] [address] 10/06/2029 Hospital Encounter [place] [phone] Al Mendez MD [facility] [place] [address] Scheduled Procedures Name Priority Associated Diagnoses Date/Ti me @TOTAL KNEE REVISION ARTHROP LASTY, COMPLETE (WRVU 27.11) Instability Right TKA MODIFIER,GMK REVISION KNEE,MEDACTA Instability Right TKA documented as of this encounter Procedures Procedure Name Priority Date/Time Associated Diagnosis Comments MAMMO DIAGNOSTIC WITHOUT CAD LEFT Routine 05/08/2022 3:25 PM EST Abnormal finding on breast imaging documented in this encounter Results * Mammo Diagnostic Without Cad Left (05/08/2022 3:25 PM EST) Anatomical Region Laterality Modality Breast [...] who have questions please contact the health direct care counselor that requested your imaging first. ? Narrative 05/09/2022 3:23 PM EST ULTRASOUND GUIDED [...] obtained using a Achieve 14g device. A Nusocket 14G marker clip was placed. Cranio-caudal and lateral digital mammography performed to determine biopsy marker placement, which was shown to be at the expected location. COMPLICATIONS: None. IMAGING DIFFERENTIAL DIAGNOSIS: Scar versus recurrence. PATHOLOGIC DIAGNOSIS: Benign breast tissue with scar and fat necrosis no evidence of malignancy. Focal calcifications associated with fat necrosis. Joaquina Sykes MD IMG MAMMO ORDERABLES documented in this encounter Visit Diagnoses Diagnosis Abnormal finding on breast imaging Other (abnormal) findings on radiological examination of breast documented in this encounter Care Teams Giving Officer Relationship Specialty Start Date End Date Bhaskar Morales MD PCP - General Family Medicine 12/18/20 documented as of this encounter
--- OUTSIDE RECORDS SUMMARY | 2024-04-14 10:36 | XMS_ITS | Encounter Summary ---
[place] [address] Care Team Providers Care Corrections Cadet Name Role Phone Bhaskar Morales MD Primary Care Provider [phone] Reason for Referral * Physical Therapy (Routine) - Closed Specialty Diagnoses / Procedures Referred By Contac t Referred To Contact Diagnoses Adult BMI 50.0-59.9 kg/sq m Chronic bilateral low back pain with bilateral sciatica Radiculopathy of lumbar region Dago Albarran PA [facility] [place] [address] Referral ID Status Reason Start Date Expiration Date V isits Requested Visits Authorized [id number] Closed Evaluate and Treat Non PCP 07/09/2022 01/05/2023 12 12 Reason for Visit * Reason Comments Back Pain * Consultation (Routine) - Closed Specialty Diagnoses / Procedures Referred By Contac t Referred To Contact [facility] Diagnoses Status post revision of total replacement of left knee Low back pain/BLE numbness/s/p TKA 2020/no imaging Chanelle Gaming PA [facility] OR[place] [address] [facility] [place] [phone] Referral ID Status Reason Start Date Expiration Date V isits Requested Visits Authorized [id number] Closed Consult, Test & Treat 03/26/2022 03/26/2023 3 3 Encounter Details Date Type Department Care Team (Late st Contact Info) Description 07/09/2022 1:00 PM EST Office Visit [place] [address] Dago Albarran PA [facility] [place] [address] Adult BMI 50.0-59.9 kg/sq m; Chronic bilateral [...] - Inhaled Oxygen Concentration - - Weight 136.1 kg (300 lb) 07/09/2022 12:54 PM EST Height 154.9 cm (5' 1) 07/09/2022 12:54 PM EST Body Mass Index 56.68 07/09/2022 12:54 PM EST documented in this encounter Progress Notes * Dago Albarran PA - 07/09/2022 1:00 PM EST Images from the original note were not included. [facility] Dago Albarran PA-C Dear Colleagues, I had the pleasure of seeing this patient at the [facility] for evaluation. Chief Complaint: Low back pain, bilateral leg pain and numbness. Decreased standing and walking tolerance. HPI: Quin is a 56 year old female who presents to clinic for evaluation of back pain and bilateral leg pain, numbness and decreased walking/standing tolerance. She has a history of total knee replacements including a left total knee revision by Dr. Mendez 02/15/21. She also has a history of breast cancer and in remission. She has developed chronic bilateral thigh pain and numbness limited to the proximal thighs. Symptoms are worse when ambulating and standing and improve with leaning forward or sitting down. She is limited to under a mile of walking. If she stays seated for too long she also has worsening symptoms. She does not report weakness or bowel/bladder changes. She has been taking aleve for pain control without significant relief. She has been evaluated by orthopedics who do not feel hersymptoms are not related to her knees. She has done physical therapy for her knees but not her back. She feels her symptoms are limiting her quality of life and enjoyment at work. Denies muscle weakness, bowel/bladder changes or incontinence, saddle anesthesia, constitutional symptoms, balance disturbances or fine motor changes. 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 Ambulates without assistive device. She has not midline spinal or paraspinal tenderness. Tenderness about the right SI area. She has forward flexion to about80 degrees and extension to 10 degrees both relatively pain free with flexion more bothersome. She has normal sensation to light touch and motor strength is 5/5 throughout bilateral lower extremities. No pain with bilateral hip IR or ER. Reflexes are blunted but symmetric at bilateral patella and achilles. Imaging: No spine imaging available for review. Assessment Diagnosis: -Low back pain with sciatica -Bilateral leg pain Quin is a 56 year old female who presents to clinic for evaluation of back pain and bilateral leg pain with numbness as well decreased walking tolerance. She has a history of multiple knee surgeriesbut symptoms are felt not to be related to her knees. She has a normal neurological exam. Her storydoes match that of neurogenic claudication with her proximal thigh symptoms and decreased walking tolerance that improves with flexion or sitting but would not typically worsen with prolonged sitting. We discussed her symptoms in detail and the multiple possible causes and the overlapping symptomatology of spine, SI, and hips and at this point is unclear. We discussed starting physical therapy focused on her back. Given the nerve-like symptoms we discussed trial of gabapentin which she has previously tolerated and would like to try. We will obtain XR today. We will follow up in 2 months for clinical check. We discussed that if symptoms persist may consider MRI in the future to assess neural impingement. Explained treatment options may be limited due high BMI and that if she were to pursue injections orsurgical intervention there will likely be hesitation and recommend she work on improving her weight if she desires to pursue these interventions in the future. Plan: 1) Gabapentin 2) Physical therapy - Treat Your Back provided 3) XR today 4) Follow up 2 months for clinical check. Thank you for letting me participate in this patient's care. Sincerely, Dago Albarran PA-C [facility] documented in this encounter Plan of Treatment Upcoming Encounters Date Type Department Care Team (Late st Contact Info) Description 05/30/2024 10:00 AM EST Appointment Mammography/[place] [address] Alicia Quinteros MD [facility] [place] [address] 08/11/2024 4:15 PM EST Office Visit Dermatology at [address] [place] [phone] Jhon Giron MD [address] [facility], [place] [address] 11/21/2024 2:00 PM EDT Office Visit Radiation Oncology at [address] [phone] Alicia Quinteros MD [facility] [place] [address] 10/06/2029 Hospital Encounter [place] [address] Al Mendez MD [facility] DR ORTHOPAED[place] [address] Scheduled Procedures Name Priority Associated Diagnoses Date/Ti me @TOTAL KNEE REVISION ARTHROP LASTY, COMPLETE (WRVU 27.11) Instability Right TKA MODIFIER,GMK REVISION KNEE,MEDACTA Instability Right TKA Scheduled Referrals Name Type Priority Associated Diagnoses Orde r Schedule Referral to Physical Therapy Outpatient Referral Routine Adult BMI 50.0-59.9 kg/sq m Chronic bilateral low back pain with bilateral sciatica Radiculopathy of lumbar region Ordered: 07/09/2022 documented as of this encounter Results * XR Lumbar Spine [...] who have questions please contact the health critical care nurse practitioner that requested your imaging first. ? Narrative 07/10/2022 11:23 AM EST EXAMINATION: XR [...] riblets arising from T12. There are 5 [id number] vertebral bodies. There is right convex curvature [...] patients who have questions please contactthe health critical care nurse practitioner that requested your imaging first. Lukas Lorenzo MD IMG DX ORDERABLES documented in this encounter Visit Diagnoses Diagnosis Adult BMI 50.0-59.9 kg/sq m Body Mass Index 50.0-59.9, adult Chronic bilateral low back pain with bilateral sciatica Radiculopathy of lumbar region Thoracic or lumbosacral neuritis or radiculitis, unspecified Adult BMI 50.0-59.9 kg/sq m Body Mass Index 50.0-59.9, adult Chronic bilateral low back pain with bilateral sciatica Radiculopathy of lumbar region Thoracic or lumbosacral neuritis or radiculitis, unspecified documented in this encounter Care Teams Corrections Cadet Relationship Specialty Start Date End Date Bhaskar Morales MD PCP - General Family Medicine 12/18/20 documented as of this encounter
--- OUTSIDE RECORDS SUMMARY | 2024-04-14 10:37 | XMS_ITS | Encounter Summary ---
Author Organization [facility] [place] [address] Care Team Providers Care Manager Portable Name Role Phone Bhaskar Morales MD Primary Care Provider [phone] Reason for Visit * Reason Comments Follow Up Surgery S/p L TKA REV DOS 03/28 Encounter Details Date Type Department Care Team (Late st Contact Info) Description 01/15/2022 2:15 PM EDT Office [place] [phone] Al Mendez MD [facility] DR [place] [address] Status post revision of total replacement of left knee; Status post right knee replacement Social History Tobacco Use Types Packs/Day Years [...] Sign Reading Time Taken Comments Blood Pressure 123/58 01/15/2022 2:18 PM EDT Pulse 97 01/15/2022 2:18 PM EDT Temperature - - Respiratory Rate - - Oxygen Saturation - - Inhaled Oxygen Concentration - - Weight 131.5 kg (290 lb) 01/15/2022 2:18 PM EDT Height 154.9 cm (5' 1) 01/15/2022 2:18 PM EDT Body Mass Index 54.8 01/15/2022 2:18 PM EDT documented in this encounter Progress Notes * Al Mendez MD - 01/15/2022 2:15 PM EDT Date of encounter: 01/15/2022 ARTHROPLASTY HISTORY/PREVIOUS KNEE SURGERY: 1. Left TKA 05/02/15 (Kellen) 2. RIGHT TKA 2017 (Kellen) 3. 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 She is now 4 years out from her right total knee arthroplasty done in [place]. Both knees are doing very well. She has excellent range of motion bilaterally. She is back to swimming which she very much enjoys. She has no issues with walking endurance. No residual swelling. She does report a fall a few weeks ago which resulted in some bruising which is now resolved. She is overall very happy with her revision and her rightknee is doing well. Past medical history, medications, and allergies were reviewed and updated in the chart today. Her review of systems is otherwise negative for fevers or chills. [facility] Surgical Followup Visit 07/10/2021 PROMIS-10 General Health Excellent PROMIS-10 Quality of Life Very Good PROMIS-10 Physical Health Very Good PROMIS-10 Mental Health Good PROMIS-10 Social Activity Very Good PROMIS-10 Everyday Activities Mostly PROMIS-10 Pain 5 PROMIS-10 Fatigue Mild PROMIS-10 Social Roles Very Good PROMIS-10 Anxious or Depressed Sometimes PROMIS PHYSICAL HEALTH SCORE (range 16-68) 47.7 PROMIS MENTAL HEALTH SCORE (range 21-68) 48.3 KOOS JR Scores 63.78 Gone to ER since surgery No Admitted to hospital since recent ortho surgery No Additional surgery on same body part No Satisfaction with Treatment Satisfied Choose Same Treatment Again Definitely yes TKA Grade 6 Pain in other KNEE Moderate Back pain at this moment Very mild [facility] Response 07/10/2021 KOOS JR Scores 63.78 Spine [facility] Response 07/10/2021 KOOS JR Scores 63.78 Blood pressure 123/58, pulse 97, height 154.9 cm (5' 1), weight 131.5 kg (290 lb). NAD. Gait is normal. I have made the following determinations: Post Op Left Knee Exam: Knee ROM: Extension:0 Flexion: 120 Alignment: 0-4 degrees Neutral Stability: A/P Translation <5mm Varus (lateral stability) <5mm Valgus (medial stability) <5mm Extension La degrees or less Patella Tracking: Normal Pulses Palpable: Left PT:Yes Left DP:Yes Motor/Sensory: Distal Motor: Normal Distal Sensory: Normal Quadriceps Strength:5 I have made the following determinations: Post Op Right Knee Exam: Knee ROM: Extension:0 Flexion: 120 Alignment: 0-4 degrees Neutral Stability: A/P Translation <5mm. Varus (lateral stability)<5mm Valgus (medial stability) <5mm Extension La degrees [...] primary rotating platform cruciate retaining total knee arthroplasty with no evidence of complication. Quin Santana is a 56-year-old female 1 year status post revision left total knee arthroplasty in 4years status post right primary total knee arthroplasty doing well with no evidence of ongoing complication or deficiency. She can continue with activity as tolerated. She does not require antibiotics for dental prophylaxis. Return to clinic in 2 years or sooner if problems or concerns. documented in this encounter Plan of Treatment Upcoming Encounters Date Type Department Care Team (Late st Contact Info) Description 05/30/2024 10:00 AM EST Appointment Mammography/[place] [address] Alicia Quinteros MD [facility] [place] [address] 08/11/2024 4:15 PM EST Office Visit D[facility]ology at [facility] [address] [place] [address] Jhon Giron MD [address], [place] [address] 11/21/2024 2:00 PM EDT Office Visit Radiation Oncology at [address] [phone] Alicia Quinteros MD [facility] [place] [address] 10/06/2029 Hospital Encounter [place] [address] Al Mendez MD [facility] [place] [address] Scheduled Procedures Name Priority Associated Diagnoses Date/Ti me @TOTAL KNEE REVISION ARTHROP LASTY, COMPLETE (WRVU 27.11) Instability Right TKA MODIFIER,GMK REVISION KNEE,MEDACTA Instability Right TKA documented as of this encounter Visit Diagnoses Diagnosis Status post revision of total replacement of left knee Status post right knee replacement documented in this encounter Care Teams Manager Portable Relationship Specialty Start Date End Date Bhaskar Morales MD PCP - General Family Medicine 12/18/20 documented as of this encounter
--- OUTSIDE RECORDS SUMMARY | 2024-04-14 10:37 | XMS_ITS | Encounter Summary ---
Author Organization [facility] Address [facility] [place] [address] Care Team Providers Care Hand Bulldozer Name Role Phone Bhaskar Morales MD Primary Care Provider [phone] Encounter Details Date Type Department Care Team (Late st Contact Info) Description 03/20/2021 1:04 PM EDT - 03/20/2021 11:59 PM EDT Hospital Encounter XRay at [address] [place] [address] Al Mendez MD [facility] ORTHOPAEDIC [place] [address] Left knee pain, unspecified chronicity; Presence of left artificial knee joint; Status post left knee replacement; Knee dislocation, left, sequela Discharge Disposition: Home Social History Tobacco Use [...] puffs into the lungs once as needed. albuterol 90 mcg/actuation HFA Aerosol Inhaler Inhale 2 puffs into the lungs every 4 hours as needed for Wheezing. Use with spacer oxyCODONE (Roxicodone) 5 mg TabletIndications:S/P revision of total knee, left Take 1 tablet by mouth every 4 hours as needed for Pain (Acute post-op surgical pain). 36 tablet 02/22/2021 08/01/2021 rivaroxaban (Xarelto) 10 mg Tablet Take 1 tablet by mouth every evening. Take for 30 days after surgery. Last day = 03/17/2021 29 tablet 02/16/2021 08/01/2021 acetaminophen (Tylenol) 500 mg Tablet Take 2 tablets by mouth every 8 hours. Continue the Tylenol around the clock for 10 days after surgery, (). Then may take if needed per package insert. Do not take more than 3,000 mg of Tylenol in 24 hours. 02/16/2021 08/01/2021 gabapentin (Neurontin) 300 mg Capsule Take 1 capsule by mouth nightly. Take nightly before bed for sleep for 4 weeks after surgery. 30 capsule 02/16/2021 08/01/2021 naproxen (NAPROSYN) 500 mg Tablet Take 1 tablet by mouth 2 times daily as needed (pain). Take with food for up to 6 weeks after surgery. 84 tablet 02/16/2021 11/17/2022 polyethylene glycoL (Miralax) 17 gram Powder in Packet Take 17 g by mouth 2 times daily. 02/16/2021 08/01/2021 senna-docusate (Pericolace) 8.6-50 mg Tablet Take 2 tablets by mouth 2 times daily. 02/16/2021 08/01/2021 citalopram (CeleXA) 20 mg Tablet Take 20 mg by mouth every morning. 05/18/2023 hydroCHLOROthiazide (HYDRODIURIL) 50 mg Tablet Take 25 mg by mouth daily. 0 04/08/2018 01/15/2022 documented as of this encounter Plan of Treatment Upcoming Encounters Date Type Department Care Team (Late st Contact Info) Description 05/30/2024 10:00 AM EST Appointment Mammography/[place] [address] Alicia Quinteros MD [facility] DR RADIATION [place] [address] 08/11/2024 4:15 PM EST Office Visit Dermatology at [address] [place] [address] Jhon Giron MD [address] [place] [address] RD, [place] [address] 11/21/2024 2:00 PM EDT Office Visit Radiation Oncology at [address] [phone] Alicia Quinteros MD [facility] RADIATION [place] [address] 10/06/2029 Hospital Encounter [place] [address] Al Mendez MD [facility] DR ORTHOPAEDIC [place] [address] Scheduled Procedures Name Priority Associated Diagnoses Date/Ti me @TOTAL KNEE REVISION ARTHROP LASTY, COMPLETE (WRVU 27.11) Instability Right TKA MODIFIER,GMK REVISION KNEE,MEDACTA Instability Right TKA documented as of this encounter Procedures Procedure Name Priority Date/Time Associated Diagnosis Comments XR KNEE STANDING ALIGNMENT AP LAT SKYLINE LEFT Routine 03/20/2021 1:43 PM EDT Left knee pain, unspecified chronicity Presence of left artificial knee joint Status post left knee replacement Knee dislocation, left, sequela documented in this encounter Results * XR Knee Standing Alignment AP Lat [place] Left (03/20/2021 1:43 PM EDT) Anatomical Region Laterality Modality Knee Left Digital Radiogra phy Impressions 03/20/2021 1:48 PM EDT Status post left total knee arthroplasty without radiographic evidence of hardware complication. Thank you for letting us participate in the care of this patient. ??If you are a health care provider and have any questions regarding this report, please contact the number below. ??For patients who have questions please contact the health pet care attendant that requested your imaging first. ? Narrative 03/20/2021 1:48 PM EDT EXAMINATION: XR KNEE STANDING ALIGNMENT AP LAT SKYLINE LEFT CLINICAL HISTORY: History of knee replacement TECHNIQUE: One single AP image was taken with the patient standing. ??The image was taken with a long-view panel and includes from the pelvis to the ankles. 3 views of the left knee COMPARISON: 02/15/2021 FINDINGS: There is a slight left higher than right pelvic tilt. There is asymmetric narrowing of the left tibiotalar joint space. Bilateral mechanical axes are slightly medially deviated, projecting 1.7 cm to the center of the right knee and 1.4 cm to the center of the left knee. There is a left revised total knee arthroplasty with a joint effusion. No fracture or lucency. Normal alignment. Frontal and sunrise views of the right knee demonstrates normal appearance of a right total knee arthroplasty. Procedure Note Sampson Johns MD - 03/20/2021 EXAMINATION: XR KNEE STANDING ALIGNMENT AP LAT SKYLINE LEFT CLINICAL HISTORY: History of knee replacement TECHNIQUE: One single AP image was taken with the patient standing. Theimage was taken with a long-view panel and includes from the pelvis to theankles. 3 views of the left knee COMPARISON: 02/15/2021 FINDINGS: There is a slight left higher than right pelvic tilt. There isasymmetric narrowing of the left tibiotalar joint space. Bilateral mechanical axesare slightly medially deviated, projecting 1.7 cm to the center of the rightknee and 1.4 cm to the center of the left knee. There is a left revised total knee arthroplasty with a joint effusion.No fracture or lucency. Normal alignment. Frontal and sunrise views of theright knee demonstrates normal appearance of a right total knee arthroplasty. IMPRESSION Status post left total knee arthroplasty without radiographic evidenceof hardware complication. Thank you for letting us participate in the care of this patient. If youare a health care provider and have any questions regarding this report,please contact the number below. For patients who have questions please contactthe health pet care attendant that requested your imaging first. Electronically signed by: Sampson Johns MD, [facility]([phone]), at 03/20/2021 1:48 PM Al Mendez MD IMG DX ORDERABLES documented in this encounter Visit Diagnoses Diagnosis Left knee pain, unspecified chronicity Presence of left artificial knee joint Knee joint replacement by other means Status post left knee replacement Knee dislocation, left, sequela documented in this encounter Care Teams Hand Bulldozer Relationship Specialty Start Date End Date Bhaskar Morales MD PCP - General Family Medicine 12/18/20 documented as of this encounter
--- OUTSIDE RECORDS SUMMARY | 2024-04-14 10:37 | XMS_ITS | Encounter Summary ---
Author Organization [facility] [place] [address] Care Team Providers Care Tanning Solution Maker Name Role Phone Bhaskar Morales MD Primary Care Provider [phone] Reason for Visit * Reason Comments Radiation Follow-up Encounter Details Date Type Department Care Team (Late st Contact Info) Description 07/08/2021 4:30 PM EST Office Visit Radiation Oncology at [address] [address] Alicia Quinteros MD [facility] [place] [address] S/P radiotherapy Social History Tobacco Use Types [...] Sign Reading Time Taken Comments Blood Pressure 132/76 07/08/2021 4:40 PM EST Pulse 87 07/08/2021 4:40 PM EST Temperature 36.9 ??C (98.4 ??F) 07/08/2021 4:40 PM ES T Respiratory Rate 18 07/08/2021 4:40 PM EST Oxygen Saturation 97% 07/08/2021 4:40 PM EST Inhaled Oxygen Concentration - - Weight 125.6 kg (276 lb 12.8 oz) 07/08/2021 4:40 PM EST Height - - Body Mass Index 52.33 03/20/2021 2:39 PM EDT documented in this encounter Patient Instructions * Patient Instructions* Alicia Quinteros MD - 07/08/2021 4:30 PM EST Your exam is without worrisome finding. Someone will call you to schedule mammograms to be done @ [facility]. Someone will contact you to schedule followup with me in 6 months. documented in this encounter Progress Notes * Alicia Quinteros MD - 07/08/2021 4:30 PM EST Images from the original note were not included. CC: Sched'd fu s/p xrt completion. 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 ?? 07/27/18 [...] thyroid FNA benign, further followup not indicated. Subjective: Has lost almost 40 lbs since I last saw her by dieting & exercising. No breast problem. ROM arms around shoulders great. No hand/arm swelling. Energy level good. Past [...] Stereotactic Biopsy Left 05/10/2018 Jinny Gutierrez MD [facility] RAD MAMMOGRAPHY ??? PRO MASTECTOMY PARTIAL Left 06/24/2018 MASTECTOMY PARTIAL (WRVU 10.13) performed by Frances Zee MD at [facility] MAIN OR ??? PRO REVISE KNEE JOINT REPLACE, ALL PARTS Left 02/15/2021 TOTAL KNEE REVISION ARTHROPLASTY, COMPLETE (WRVU 27.11) performed by Al Mendez MD at [facility] MAIN OR Your Medications Accurate as of July 08, 2021 5:52 PM. If you have any questions, ask your nurse or doctor. Continued medications, unchanged Dose Details acetaminophen 500 mg Tab Commonly known as: Tylenol Take 2 tablets by mouth every 8 hours. Continue the Tylenol around the clock for 10 days after surgery, (). Then may take if needed per package insert. Do not take more than 3,000 mg of Tylenol in 24 hours. 1,000 mg Refills: 0 albuteroL 90 mcg/actuation Hfaa Inhale 2 puffs [...] as: Symbicort Inhale 2 puffs into the lungs. 2 puff Refills: 0 calcium-vitamin D3 600 [...] as needed. 0.3 mg Refills: 0 gabapentin 300 mg Cap Commonly known as: Neurontin Take 1 capsule by mouth nightly. Take nightly before bed for sleep for 4 weeks after surgery. 300 mg Quantity: 30 capsule Refills: 0 hydroCHLOROthiazide 50 mg Tab Commonly known as: Hydrodiuril Take [...] by mouth daily. 1 tablet Refills: 0 naproxen 500 mg Tab Commonly known as: NAPROSYN Take 1 tablet by mouth 2 times daily as needed (pain). Take with food for up to 6 weeks after surgery. 500 mg Quantity: 84 tablet Refills: 0 omeprazole 20 mg Cpdr Commonly known as: PriLOSEC Take 20 mg by mouth daily. 20 mg Refills: 0 oxyCODONE 5 mg Tab Commonly known as: Roxicodone Take 1 tablet by mouth every 4 hours as needed for Pain (Acute post-op surgical pain). 5 mg Quantity: 36 tablet Refills: 0 polyethylene glycoL 17 gram Pwpk Commonly known as: Miralax Take 17 g by mouth 2 times daily. 17 g Refills: 0 rivaroxaban 10 mg Tab Commonly known as: Xarelto Take 1 tablet by mouth every evening. Take for 30 days after surgery. Last day = 03/17/2021 10 mg Quantity: 29 tablet Refills: 0 senna-docusate 8.6-50 mg Tab Commonly known as: Pericolace Take 2 tablets by mouth 2 times daily. 2 tablet Refills: 0 Vitamin D 1,000 unit Tab TK 1 T PO D Generic drug: cholecalciferol (Vitamin D3) Refills: 0 P&SHx: Never smoker. Physical Exam Constitutional: General: She is not in acute distress. Comments: BP 132/76 (Patient Position: Sitting) Pulse 87 Temp 36.9 ??C (98.4 ??F) (Temporal) Resp 18 Wt 125.6 kg (276 lb 12.8 oz) SpO2 97% BMI 52.33 kg/m?? HENT: Head: Normocephalic. Eyes: General: No scleral icterus. Right eye: No discharge. Left eye: No discharge. Extraocular Movements: Extraocular movements intact. Conjunctiva/sclera: Conjunctivae normal. Pulmonary: Effort: Pulmonary effort is normal. No respiratory distress. Breath sounds: No stridor. Chest: Breasts: Right: No inverted nipple, mass, nipple discharge, skin change, tenderness, axillary adenopathy or supraclavicular adenopathy. Left: No inverted nipple, mass, nipple discharge, skin change, tenderness, axillary adenopathy or supraclavicular adenopathy. Abdominal: General: There is no distension. Palpations: [...] Thought content normal. Judgment: Judgment normal. A: BIMAL. Decision Making/Plan: B mmgs due, ordered. Rtc 6 mos. 20 mins in encounter. documented in this encounter Plan of Treatment Upcoming Encounters Date Type Department Care Team (Late st Contact Info) Description 05/30/2024 10:00 AM EST Appointment Mammography/[place] [address] Alicia Quinteros MD [facility] [place] [address] 08/11/2024 4:15 PM EST Office Visit Dermatology at [address] [place] [address] Jhon Giron MD [address] [facility], [place] [address] 11/21/2024 2:00 PM EDT Office Visit Radiation Oncology at [address] [phone] Alicia Quinteros MD [facility] [place] [address] 10/06/2029 Hospital Encounter [place] [address] Al Mendez MD [facility] [place] [address] Scheduled Procedures Name Priority Associated Diagnoses Date/Ti me @TOTAL KNEE REVISION ARTHROP LASTY, COMPLETE (WRVU 27.11) Instability Right TKA MODIFIER,GMK REVISION KNEE,MEDACTA Instability Right TKA documented as of this encounter Visit Diagnoses Diagnosis S/P radiotherapy Convalescence following radiotherapy documented in this encounter Care Teams Tanning Solution Maker Relationship Specialty Start Date End Date Bhaskar Morales MD PCP - General Family Medicine 12/18/20 documented as of this encounter
--- OUTSIDE RECORDS SUMMARY | 2024-04-14 10:37 | XMS_ITS | Encounter Summary ---
Author Organization [facility] Address [facility] [place] [address] Care Team Providers Care Cream Tester Name Role Phone Bhaskar Morales MD Primary Care Provider [phone] Encounter Details Date Type Department Care Team (Latest Contact Info) Description 07/10/2021 10:07 AM EST - 07/10/2021 11:59 PM EST Hospital Encounter XRay at [address] [place] [address] Zora Celeste MD [facility] ORTHOPAEDIC [place] [address] 02/15/2021 S/P revision of left total knee (Dr. Mendez) Discharge Disposition: Home Social History Tobacco Use [...] 05/30/2024 10:00 AM EST Appointment Mammography/[place] [phone] Alicia Quinteros MD [facility] DR [place] [address] 08/11/2024 4:15 PM EST Office Visit Dermatology at [address] [place] [phone] Jhon Giron MD [address] [place] [address] RD, [place] [address] 11/21/2024 2:00 PM EDT Office Visit Radiation Oncology at [address] [phone] Alicia Quinteros MD [facility] RADI[place] [address] 10/06/2029 Hospital Encounter [place] [address] Al Mendez MD [facility] DR ORTHOPAEDIC [place] [address] Scheduled Procedures Name Priority Associated Diagnoses Date/Ti me @TOTAL KNEE REVISION ARTHROP LASTY, COMPLETE (WRVU 27.11) Instability Right TKA MODIFIER,GMK REVISION KNEE,MEDACTA Instability Right TKA documented as of this encounter Procedures Procedure Name Priority Date/Time Associated Diagnosis Comments XR KNEE AP & LAT LEFT Routine 07/10/2021 10:29 AM EST 02/15/2021 S/P revision of left total knee (Dr. Mendez) documented in this encounter Results * XR Knee 1-2 Views Left (Generic) (07/10/2021 10:29 AM EST) Anatomical Region Laterality Modality Knee Left Digital Radiogra phy Impressions 07/10/2021 2:10 PM EST Uncomplicated left total knee arthroplasty revision. I have personally reviewed the image(s) and the resident's interpretation and agree with the findings, Anna Dubois MD at 07/10/2021 2:10 PM Thank you for letting us participate in the care of this patient. ??If you are a health care provider and have any questions regarding this report, please contact the number below. ??For patients who have questions please contact the health client care representative that requested your imaging first. ? Narrative 07/10/2021 2:10 PM EST EXAMINATION: XR KNEE 1-2 VIEWS LEFT (GENERIC) CLINICAL HISTORY: s/p L TKA TECHNIQUE: 2 views LEFT knee COMPARISON: Knee radiographs 03/20/2021 FINDINGS: Status post post revision of left total knee arthroplasty. Hardware is intact and unchanged position. No periprosthetic fracture or lucency. Small left knee joint effusion. Procedure Note Anna Dubois MD - 07/10/2021 EXAMINATION: XR KNEE 1-2 VIEWS LEFT (GENERIC) CLINICAL HISTORY: s/p L TKA TECHNIQUE: 2 views LEFT knee COMPARISON: Knee radiographs 03/20/2021 FINDINGS: Status post post revision of left total knee arthroplasty. Hardware isintact and unchanged position. No periprosthetic fracture or lucency. Small leftknee joint effusion. IMPRESSION Uncomplicated left total knee arthroplasty revision. I have personally reviewed the image(s) and the resident's interpretationand agree with the findings, Anna Dubois MD at 07/10/2021 2:10 PM Thank you for letting us participate in the care of this patient. If youare a health care provider and have any questions regarding this report,please contact the number below. For patients who have questions please contactthe health client care representative that requested your imaging first. Electronically signed by: Anna Dubois MD, [facility]([phone]), at 07/10/2021 2:10 PM Zora Celeste MD IMG DX ORDERABLES documented in this encounter Visit Diagnoses Diagnosis 02/15/2021 S/P revision of left total knee (Dr. Mendez) documented in this encounter Care Teams Cream Tester Relationship Specialty Start Date End Date Bhaskar Morales MD PCP - General Family Medicine 12/18/20 documented as of this encounter
--- OUTSIDE RECORDS SUMMARY | 2024-04-14 10:37 | XMS_ITS | Encounter Summary ---
Author Organization [facility] [place] [address] Care Team Providers Care Hospital Chaplain Name Role Phone Bhaskar Morales MD Primary Care Provider [phone] Encounter Details Date Type Department Care Team (Latest Contact Info) Description 07/19/2021 12:53 PM EST - 07/19/2021 11:59 PM EST Hospital Encounter Mammography/[place] [phone] Alicia Quinteros MD [facility] [address] [place] [address] Breast cancer screening by mammogram Discharge Disposition: [...] 05/30/2024 10:00 AM EST Appointment Mammography/[place] [address] Alicia Quinteros MD [facility] [place] [address] 08/11/2024 4:15 PM EST Office Visit Dermatology at [address] [place] [phone] Jhon Giron MD [address] [place] [address], [place] [address] 11/21/2024 2:00 PM EDT Office Visit Radiation Oncology at [address] [phone] Alicia Quinteros MD [facility] [place] [address] 10/06/2029 Hospital Encounter [place] [phone] Al Mendez MD [facility] [place] [address] Scheduled Procedures Name Priority Associated Diagnoses Date/Ti me @TOTAL KNEE REVISION ARTHROP LASTY, COMPLETE (WRVU 27.11) Instability Right TKA MODIFIER,GMK REVISION KNEE,MEDACTA Instability Right TKA documented as of this encounter Procedures Procedure Name Priority Date/Time Associated Diagnosis Comments MAMMO SCREENING CAD AND MILTON BILATERAL Routine 07/19/2021 1:36 PM EST Breast cancer screening by mammogram documented in this encounter Results * Mammo Screening Cad and Milton Bilateral (07/19/2021 1:36 PM EST) Anatomical Region Laterality Modality Breast Bilateral Mammography Narrative 07/22/2021 8:28 AM EST REASON FOR EXAM: Screening. History of left breast cancer. TECHNIQUE: CC and MLO views were obtained of both breasts. Computer aided detection was used. 3D tomosynthesis images were obtained in addition to 2D images. Comparison: The study is compared with prior images. FINDINGS: Breast density: There are scattered areas of fibroglandular density. There are no suspicious microcalcifications, masses, or areas of distortion. There are post treatment changes in the left breast. CONCLUSION: No mammographic evidence of malignancy. RECOMMENDATION: Routine screening. BIRADS CATEGORY 2: BENIGN FINDINGS * ??Regular screening mammograms starting between age [...] who have questions please contact the health landcare facilitator that requested your imaging first. ? Electronically signed by: Leigh Cordon MD, [facility] ([phone]), at 07/22/2021 8:28 AM Alicia Quinteros MD IMG MAMMO ORDERABLES documented in this encounter Visit Diagnoses Diagnosis Breast cancer screening by mammogram documented in this encounter Care Teams Hospital Chaplain Relationship Specialty Start Date End Date Bhaskar Morales MD PCP - General Family Medicine 12/18/20 documented as of this encounter
--- OUTSIDE RECORDS SUMMARY | 2024-04-14 10:37 | XMS_ITS | Encounter Summary ---
Author Organization [facility] [place] [address] Care Team Providers Care Field Service Poultry Technician Name Role Phone Bhaskar Morales MD Primary Care Provider Reason for Visit * Reason Onset Date Comments Disability Paperwork 02/21/2021 Encounter Details Date Type Department Care Team (Late st Contact Info) Description 02/21/2021 Telephone [place] [phone] Al Mendez MD [facility] [place] [address] Disability Paperwork Social History Tobacco Use Types Packs/Day Years [...] encounter Miscellaneous Notes * Telephone Encounter - Tania Bowers - 03/07/2021 3:33 PM EDT Faxed/Mailed/MY PORTAL/Pick-up Date: faxed When patients call in about their disability, please tell them that we do require 7-10 BUSINESS DAYS, from date of receiving, to complete the forms. * Telephone Encounter - Sophie Mota - 02/21/2021 1:47 PM EDT Date Received: 02/21/21 Insurance/Disability Company Name: [facility] documented in this encounter Plan of Treatment Upcoming Encounters Date Type Department Care Team (Late st Contact Info) Description 05/30/2024 10:00 AM EST Appointment Mammography/[place] [phone] Alicia Quinteros MD [facility] [place] [address] 08/11/2024 4:15 PM EST Office Visit Dermatology at [address] [place] [address] Jhon Giron MD [address] [place] [address], [place] [address] 11/21/2024 2:00 PM EDT Office Visit Radiation Oncology at [address] [phone] Alicia Quinteros MD [facility] [place] [address] 10/06/2029 Hospital Encounter [place] [phone] Al Mendez MD [facility] [place] [address] Scheduled Procedures Name Priority Associated Diagnoses Date/Ti me @TOTAL KNEE REVISION ARTHROP LASTY, COMPLETE (WRVU 27.11) Instability Right TKA MODIFIER,GMK REVISION KNEE,MEDACTA Instability Right TKA documented as of this encounter Visit Diagnoses Not on filedocumented in this encounter Care Teams Field Service Poultry Technician Relationship Specialty Start Date End Date Bhaskar Morales MD PCP - General Family Medicine 12/18/20 documented as of this encounter
--- OUTSIDE RECORDS SUMMARY | 2024-04-14 10:37 | XMS_ITS | Encounter Summary ---
Author Organization [facility] [place] [address] Care Team Providers Care Client Relationship Manager Name Role Phone Bhaskar Morales MD Primary Care Provider [phone] Encounter Details Date Type Department Care Team (Late st Contact Info) Description 03/07/2021 Telephone [place] [address] Radha Cope MD [facility] [place] [address] Social History Tobacco Use Types Packs/Day Years [...] encounter Miscellaneous Notes * Telephone Encounter - Heena Chambers Tita - 03/08/2021 11:41 AM EDTSummary: Back to work - light duty From Dr Cope: 03/08/2021 I have one person from my [facility] who was a telephone call (Dr Mendez???s patient post TKA revision), I was waiting to touch base domitila Mendez. He said she is OK to go back to LIGHT duty only starting Thursday. Can you please pass along to her, I told her we would call w an update today because Dr Mendez got back to me via text this AM? Thanks!! Enzo I called and spoke with Quin. She was very happy to hear she can go back to work light duty starting 03/11/2021. She stated that her school will send a new form that will need to be filled out releasing her back to work - light duty. * Telephone Encounter - Radha Cope MD - 03/07/2021 7:02 PM EDT Patient calls in stating she is doing incredibly well s/p L TKA revision 02/15/21 (Dr. Mendez). Moved today from walker to cane with PT. Hit 100 deg on ROM of her L knee. 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 Mendez reportedly told her he would consider 3 weeks and patient would prefer to go backto work starting on Thursday. Patient received a telephone call from her retail field representative at her school today who stated she received a paperwork from Dr. Mendez's office stating that she not be able togo back to work until May 17. Patient is confused with this and she would love to be able to go back to work Thursday if she feels she is doing great and her total knee recovery. Discussed that I would reach out to Dr. Mendez tomorrow morning and discuss his comfort level with her returning to work as soon as this coming Thursday. Radha Cope MD documented in this encounter Plan of Treatment Upcoming Encounters Date Type Department Care Team (Late st Contact Info) Description 05/30/2024 10:00 AM EST Appointment Mammography/[place] [address] Alicia Quinteros MD [facility] [place] [address] 08/11/2024 4:15 PM EST Office Visit Dermatology at [place] [address] [place] [address] Jhon Giron MD [address], [place] [address] 11/21/2024 2:00 PM EDT Office Visit Radiation Oncology at [address] [phone] Alicia Quinteros MD [facility] [place] [address] 10/06/2029 Hospital Encounter [place] [address] Al Mendez MD [facility] [place] [address] Scheduled Procedures Name Priority Associated Diagnoses Date/Ti me @TOTAL KNEE REVISION ARTHROP LASTY, COMPLETE (WRVU 27.11) Instability Right TKA MODIFIER,GMK REVISION KNEE,MEDACTA Instability Right TKA documented as of this encounter Visit Diagnoses Not on filedocumented in this encounter Care Teams Client Relationship Manager Relationship Specialty Start Date End Date Bhaskar Morales MD PCP - General Family Medicine 12/18/20 documented as of this encounter
--- OUTSIDE RECORDS SUMMARY | 2024-04-14 10:37 | XMS_ITS | Encounter Summary ---
[place] [address] Care Team Providers Care Spectrographer Name Role Phone Bhaskar Morales MD Primary Care Provider [phone] Reason for Visit * Reason Onset Date Comments Medication Refill 02/22/2021 Encounter Details Date Type Department Care Team (Late st Contact Info) Description 02/22/2021 Refill [place] [phone] Maria Luisa Maynard CCMA 02/15/2021 S/P revision of left total knee (Dr. Mendez) (Primary Dx) Social History Tobacco Use Types Packs/Day Years [...] encounter Miscellaneous Notes * Telephone Encounter - Rose Dubose CCMA - 02/22/2021 9:40 AM EDT Images from the original note were not included. Medication Refill Request Surgery/Injury/Provider: 02/15/21 TKA Revision (Adnrea) Medication being requested: oxycodone 5mg Query: Last refill or Original Rx: Seen within 30 days (if no, than when): yes Follow Up: 03/20/21 How is this medication being used currently: 10mg q6-8hrs prn Pain level: 6 Bowel concerns: none Other pain medications used and how: Tylenol Yes Gabapentin Yes Naproxen Yes OTHER n/a Medication Taper Plan: 5mg q4hrs prn Teaching done regarding: taking nonnarcotic pain medications, taking the least amount of opioid needed for the least amount of time for adequate pain management and tapering of opioids with verbalized understanding by the patient. Requested Prescription to be sent electronically to [facility](location). Prescription prepped and pended for Amberly (provider) review. The patient knows how to contact orthopaedics if any further questions or concerns occur. documented in this encounter Plan of Treatment Upcoming Encounters Date Type Department Care Team (Late st Contact Info) Description 05/30/2024 10:00 AM EST Appointment Mammography/[place] [address] Alicia Quinteros MD [facility] [place] [address] 08/11/2024 4:15 PM EST Office Visit Dermatology at [address] [place] [phone] Jhon Giron MD [address] [place] [address] RD, [place] [address] 11/21/2024 2:00 PM EDT Office Visit Radiation Oncology at [address] [phone] Alicia Quinteros MD [facility] [place] [address] 10/06/2029 Hospital Encounter [place] [address] Al Mendez MD [facility] [place] [address] Scheduled Procedures Name Priority Associated Diagnoses Date/Ti me @TOTAL KNEE REVISION ARTHROP LASTY, COMPLETE (WRVU 27.11) Instability Right TKA MODIFIER,GMK REVISION KNEE,MEDACTA Instability Right TKA documented as of this encounter Visit Diagnoses Diagnosis 02/15/2021 S/P revision of left total knee (Dr. Mendez)- Primary documented in this encounter Care Teams Spectrographer Relationship Specialty Start Date End Date Bhaskar Morales MD PCP - General Family Medicine 12/18/20 documented as of this encounter
--- OUTSIDE RECORDS SUMMARY | 2024-04-14 10:37 | XMS_ITS | Encounter Summary ---
[place] [address] Care Team Providers Care Ruby Rails Developer Name Role Phone Bhaskar Morales MD Primary Care Provider [phone] Reason for Referral * Consultation (Routine) - Closed Specialty Diagnoses / Procedures Referred By Agus govea Referred To Contact [facility] Diagnoses Status post revision of total replacement of left knee Low back pain/BLE numbness/s/p TKA 2020/no imaging Chanelle Gaming PA [facility] [place] [address] [facility] [place] [address] Referral ID Status Reason Start Date Expiration Date V isits Requested Visits Authorized [id number] Closed Consult, Test & Treat 03/26/2022 03/26/2023 3 3 Reason for Visit * Reason Comments Follow Up Surgery CONT'D PAIN AND SWEL LING HX OF L TKA REV DOS 02/15/21 (JENNIFER) Encounter Details Date Type Department Care Team (Late st Contact Info) Description 03/26/2022 2:30 PM EDT Office Visit [place] [address] Al Mendez MD [facility] [place] [address] Status post revision of total replacement of left knee Social History Tobacco Use Types Packs/Day [...] Sign Reading Time Taken Comments Blood Pressure 130/64 03/26/2022 2:18 PM EDT Pulse 97 03/26/2022 2:18 PM EDT Temperature - - Respiratory Rate - - Oxygen Saturation - - Inhaled Oxygen Concentration - - Weight 131.5 kg (290 lb) 03/26/2022 2:18 PM EDT copied Height 154.9 cm (5' 0.98) 03/26/2022 2:18 PM ED T Body Mass Index 54.82 03/26/2022 2:18 PM EDT documented in this encounter Progress Notes * Chanelle Gaming PA - 03/26/2022 2:30 PM EDT Images from the original note were not included. Department of Orthopaedics Division of Adult Joint Reconstructive Surgery CHIEF COMPLAINT: Chief Complaint Patient presents with ??? Follow Up Surgery CONT'D PAIN AND SWELLING HX OF L TKA REV DOS 02/15/21 (JENNIFER) ARTHROPLASTY HISTORY/PREVIOUS KNEE SURGERY: 1. Left TKA 05/02/15 (Kellen) 2. RIGHT TKA 2017 (Kellen) 3. 02/15/21 (Jennifer) LEFT TKA revision Quin Santana was referred from Al Mendez MD [facility] [place] [address] I.D.: Quin Santana is a 56 y.o. year old female being seen today to discuss BILATERAL knee pain. She reports that she has been experiencing burning, shooting pain both proximally and distally. She frequently needs to change positions. She finds that leaning forward makes things feel better. She does lean over on the grocery cart when shopping. QUESTIONNAIRE RESPONSES: General Health, Prior Treatments, PreExisting Condition, Health Habits, About You 07/10/2021 PROMIS-10 General Health Excellent PROMIS-10 Quality of Life Very Good PROMIS-10 Physical Health Very Good PROMIS-10 Mental Health Good PROMIS-10 Social Activity Very Good PROMIS-10 Everyday Activities Mostly PROMIS-10 Pain 5 PROMIS-10 Fatigue Mild PROMIS-10 Social Roles Very Good PROMIS-10 Anxious or Depressed Sometimes PROMIS PHYSICAL SCORE (range 16-68) 47.7 PROMIS MENTAL SCORE (range 21-68) 48.3 Treatments Tried - Prior Surgery - KOOS JR Scores 63.78 TKA Grade 6 Alzheimers or dementia - Cirrohosis or liver disease - HIV/AIDS - Pain in more than one joint in legs - Back or neck pain - Heart attack - Heart failure - Unclog/bypass leg arteries - Stroke, blood clot, TIA - Asthma - Take medication for asthma - Emphysema, chronic bronchities, or COPD - Stomach ulcers/peptic ulcer disease - Diabetes - Poor kidney function - Rheumatic condtions - Cancer - Cancer spread - Leukemia or polycythemia vera - Lymphoma - Weight (lbs) - Height (feet) - Height (Inches) - BMI - Ever used tobacco products - Ever used alcoholic beverages - Live Alone - Marital situation - Schooling - Combined Household Income - # People Supported - [place], , - Race - Health Literacy - Currently working - Current job situation - [employer] Response 07/10/2021 KOOS JR Scores 63.78 Spine [employer] Response 07/10/2021 KOOS JR Scores 63.78 ALLERGIES Allergies Allergen Reactions ??? Hymenoptera Allergenic Extract Anaphylaxis Stinging insects ??? Venom-Honey Bee Other reaction(s): Anaphylaxsis ??? Insect Venom ??? Lactose ??? Levonorgestrel-Ethinyl Estrad ??? Penicillins [facility] Penicillin Allergy Risk Assessment 02/06/2021: Low risk penicillin allergy. OK to receive full dose of cefazolin, cefuroxime, or any 3rd or 4th+ generation cephalosporin. PAT Clinic DIRECTOR OF MANUFACTURING to place Allergy referral for formal penicillin allergy evaluation. Patient is open to a consult by phone fromallergy clinic. ??? Poison Dalia Extract SOCIAL HISTORY: reports that she has never smoked. She has never used smokeless tobacco. She reports that she does not drink alcohol and does not use drugs. SIGNIFICANT MEDICAL COMORBIDITIES: Patient Active Problem List Diagnosis Code ??? Ductal carcinoma in situ (DCIS) of left breast D05.12 ??? Asthma J45.909 ??? Gastroesophageal reflux disease K21.9 ??? History of renal calculi Z87.442 ??? Hyperlipidemia E78.5 ??? Essential hypertension I10 ??? Allergic rhinitis J30.9 ??? Abnormal glucose level R73.09 ??? Adult BMI 50.0-59.9 kg/sq m Z68.43 ??? Lactose intolerance E73.9 ??? Insomnia G47.00 ??? Obstructive sleep apnea syndrome G47.33 ??? 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 02/15/2021 S/P revision of left total knee (Dr. Mendez) Z96.652 VITALS: BP Readings from Last 1 Encounters: 03/26/22 130/64 Pulse Readings from Last 1 Encounters: 03/26/22 97 Height: 154.9 cm (5' 0.98) Weight: 131.5 kg (290 lb) (copied) Body mass index is 54.82 kg/m??. PHYSICAL EXAM: Constitution: Quin Santana sits in the clinic today alert, appears stated age and cooperative. Sheis alert and oriented. Knee Exam: LEFT ?? Knee ROM: Extension:0 Flexion: 125 Alignment: 0-4 degrees Neutral Stability: A/P Translation <5mm Varus <5mm Valgus <5mm Extension La degrees or less Patella Tracking: Normal Pulses Palpable: Left PT:Yes Left DP:Yes Motor/Sensory: Distal Motor: Normal Distal Sensory: Normal Quadriceps Strength: 4 Stable with varus, valgus, drawer. No TTP Knee Exam: RIGHT ?? Knee ROM: Extension:0 Flexion: 125 Alignment: 0-4 degrees Neutral Stability: A/P Translation <5mm Varus <5mm Valgus <5mm Extension La degrees or less Patella Tracking: Normal Pulses Palpable: Left PT:Yes Left DP:Yes Motor/Sensory: Distal Motor: Normal Distal Sensory: Normal Quadriceps Strength: 4 Stable with varus, valgus, drawer. No TTP X-RAYS: Multiple radiographic views were obtained at my request and reviewed with the patient. X-rays show a well-placed revision prosthesis with no evidence of fracture, subsidence, loosening, or periprosthetic complication. ?? ASSESSMENT AND PLAN:Ms. Santana is a 56 y.o. year old female with symptoms of spinal stenosis. We had a long discussion regarding her discomfort. We reviewed her XR images which are benign. She has no pain on palpation of the joint line of BILATERAL knee. She does describe burning. stinging pain in the bilateral legs from buttock to toes. She frequently needs to change positions for comfort.We discussed my suspicion for spinal stenosis. I have placed a referral for this. She will FU for check in regarding her knees in 2 years with XR Chanelle Gaming PA-C documented in this encounter Plan of Treatment Upcoming Encounters Date Type Department Care Team (Late st Contact Info) Description 05/30/2024 10:00 AM EST Appointment Mammography/[place] [phone] Alicia Quinteros MD [facility] [place] [address] 08/11/2024 4:15 PM EST Office Visit Dermatology at [address] [place] [phone] Jhon Giron MD [address] [facility], [place] [address] 11/21/2024 2:00 PM EDT Office Visit Radiation Oncology at [address] [phone] Alicia Quinteros MD [facility] [place] [address] 10/06/2029 Hospital Encounter [place] [phone] Al Mendez MD [facility] [place] [address] Scheduled Procedures Name Priority Associated Diagnoses Date/Ti me @TOTAL KNEE REVISION ARTHROP LASTY, COMPLETE (WRVU 27.11) Instability Right TKA MODIFIER,GMK REVISION KNEE,MEDACTA Instability Right TKA Scheduled Referrals Name Type Priority Associated Diagnoses Orde r Schedule Referral to [facility] (Internal only) Outpatient Referral Routine Status post revision of total replacement of left knee Ordered: 03/26/2022 documented as of this encounter Visit Diagnoses Diagnosis Status post revision of total replacement of left knee documented in this encounter Care Teams Ruby Rails Developer Relationship Specialty Start Date End Date Bhaskar Morales MD PCP - General Family Medicine 12/18/20 documented as of this encounter
--- OUTSIDE RECORDS SUMMARY | 2024-04-14 10:37 | XMS_ITS | Encounter Summary ---
[place] [address] Care Team Providers Care Head Coach Name Role Phone Bhaskar Morales MD Primary Care Provider Reason for Visit * Reason Comments Follow Up Surgery s/p L TKA Rev DOS * Consultation (Urgent) - Closed Specialty Diagnoses / Procedures Referred By Contac t Referred To Contact Orthopaedics Diagnoses TKA, ROTATING PLATFORM SPINACT FROM DR ARAIZA Procedures REQUESTING DR AL OR Missael Joseph MD [address] [place] [address] [facility] [address] [place] [id number] Referral ID Status Reason Start Date Expiration Date V isits Requested Visits Authorized [id number] Closed Consult, [facility] PCP Updated and/or Approved 12/18/2020 12/18/2021 6 6 Encounter Details Date Type Department Care Team (Late st Contact Info) Description 03/20/2021 2:30 PM EDT Office [place] [phone] Papito Rodriguez MD [facility] [place] [address] S/P revision of total knee, left Social History Tobacco Use Types Packs/Day Years [...] Sign Reading Time Taken Comments Blood Pressure 105/64 03/20/2021 2:39 PM EDT Pulse 78 03/20/2021 2:39 PM EDT Temperature - - Respiratory Rate - - Oxygen Saturation - - Inhaled Oxygen Concentration - - Weight 130.6 kg (287 lb 14.7 oz) 03/20/2021 2:39 PM EDT Height 154.9 cm (5' 0.98) 03/20/2021 2:39 PM ED T Body Mass Index 54.43 03/20/2021 2:39 PM EDT documented in this encounter Progress Notes * Neil Arnold MD - 03/20/2021 2:30 PM EDT Arthroplasty/Orthopaedic History: 1. Left TKA 05/02/15 (Kellen) 2. Right TKA 2017 (Kellen) 3. Left Revision TKA 02/15/21 (Andrea) HPI: Quin Santana is a very pleasant 55 y.o. year-old female and is now 4 weeks post left total knee revision The patient has been doing very well. Pain is controlled without any medications.. No fevers, chills, nausea, vomiting, or symptoms of infection. Quin has been ambulating with walker And has been transitioning to using a cane. She has been working with PT and doing well. She is not taking narcotic pain medicine. Anticoagulation status Rivaroxaban 10mg qAM for 30 days discussed stop date 03/17/21 (stopped). ROS: Denies: fever, chills, night sweats, nausea, or vomiting BP 105/64 (BP Location (NBP): Left arm, Patient Position: Sitting, BP Cuff Sizes: Adult (25-34 cm)) Pulse 78 Ht 154.9 cm (5' 0.98) Wt 130.6 kg (287 lb 14.7 oz) BMI 54.43 kg/m?? Physical Exam: Well-appearing female in no acute distress. Alert and Oriented x 3 and answers all questions appropriately. The incision is well healed, with no signs of infection. Knee Exam: Left Knee ROM: Extension:5 degrees from full extension Flexion: 125 Alignment: 0-4 degrees Neutral Stability: A/P Translation <5mm Varus <5mm Valgus <5mm Extension La degrees or less Patella Tracking: Normal Pulses Palpable: Left PT:Yes Left DP:Yes Motor/Sensory: Distal Motor: Normal Distal Sensory: Normal Quadriceps Strength: 4 X-RAYS: Multiple radiographic views were obtained at my request and reviewed with the patient. X-rays show a well-placed revision prosthesis with no evidence of fracture, subsidence, loosening, or periprosthetic complication. Questionnaire Responses: [facility] Surgical Postop Visit 02/01/2021 PROMIS-10 General Health Very Good PROMIS-10 Quality of Life Very Good PROMIS-10 Physical Health Good PROMIS-10 Mental Health Good PROMIS-10 Social Activity Very Good PROMIS-10 Everyday Activities Mostly PROMIS-10 Pain 8 PROMIS-10 Fatigue Mild PROMIS-10 Social Roles Fair PROMIS-10 Anxious or Depressed Sometimes PROMIS PHYSICAL HEALTH SCORE 42.3 PROMIS MENTAL HEALTH SCORE 48.3 KOOS JR Scores 50.01 TKA Grade 3 Pain in other KNEE Moderate Back pain at this moment Very mild Orthopeadics [facility] Response 02/01/2021 KOOS JR Scores 50.01 Spine [facility] Response 02/01/2021 KOOS JR Scores 50.01 ASSESSMENT/PLAN: Ms. Santana is a 55 y.o. year old female status post left total knee revision. Doing well postoperatively and is ready to return to work and resume all activities of daily living without restriction. Continue weightbearing as tolerated and working on range of motion. We will see her back in 1 year for repeat examination. She will need repeat X-rays at that time. Patient may return to normal activities as her pain and function allow. We discussed the appropriate precautions surrounding dental prophylaxis; according to the AAOS Appropriate Use Criteria we recommend she should NOT have any dental procedures for 6 months but may have procedures after that time and will not need antibiotics after that time. If Quin has any changes in health status we recommend she contact our office prior to dental procedures for updated recommendations We also discussed maintaining good foot care and giving prompt attention to any source of infectionthroughout the body including foot ulcers and urinary tract infections. All questions were answered. Signed: Neil Arnold MD 03/20/2021 * Papito Rodriguez MD - 03/20/2021 2:30 PM EDT I performed a history and physical examination of the patient and discussed the management plan with Neil Arnold MD. I also discussed the different treatment options, as well as the risks and benefits of each with the patient and questions were answered. I reviewed the note and agree with the documented findings and plan of care. ?? Papito Rodriguez MD 03/29/2021 documented in this encounter Miscellaneous Notes * Addendum Note - Papito Rodriguez MD - 03/20/2021 2:30 PM EDTAddended by: PAPITO RODRIGUEZ on: 03/29/2021 01:03 PM Modules accepted: Level of Service documented in this encounter Plan of Treatment Upcoming Encounters Date Type Department Care Team (Late st Contact Info) Description 05/30/2024 10:00 AM EST Appointment Mammography/[place] [address] Alicia Quinteros MD [facility] [place] [address] 08/11/2024 4:15 PM EST Office Visit Dermatology at [place] [address] [facility] [place] [phone] Jhon Giron MD [address] [facility] [place] [address] 11/21/2024 2:00 PM EDT Office Visit Radiation Oncology at [address] [phone] Alicia Quinteros MD [facility] [place] [address] 10/06/2029 Hospital Encounter [place] [phone] Papito Rodriguez MD [facility] [place] [address] Scheduled Procedures Name Priority Associated Diagnoses Date/Ti me @TOTAL KNEE REVISION ARTHROP LASTY, COMPLETE (WRVU 27.11) Instability Right TKA MODIFIER,GMK REVISION KNEE,MEDACTA Instability Right TKA documented as of this encounter Visit Diagnoses Diagnosis S/P revision of total knee, left documented in this encounter Care Teams Head Coach Relationship Specialty Start Date End Date Bhaskar Morales MD PCP - General Family Medicine 12/18/20 documented as of this encounter
--- OUTSIDE RECORDS SUMMARY | 2024-04-14 10:37 | XMS_ITS | Encounter Summary ---
[place] [address] Care Team Providers Care Microfiche Camera Operator Name Role Phone Bhaskar Morales MD Primary Care Provider [phone] Encounter Details Date Type Department Care Team (Late Contact Info) Description 01/08/2022 Orders [place] [phone] Al Mendez MD [facility] [address] [place] [address] Status post revision of total replacement of [...] 05/30/2024 10:00 AM EST Appointment Mammography/[place] [phone] Alicia Quinteros MD [facility] [place] [address] 08/11/2024 4:15 PM EST Office Visit Dermatology at [place] [address] [place] [phone] Jhon iGron MD [address] [place] [address] 11/21/2024 2:00 PM EDT Office Visit Radiation Oncology at [address] [phone] Alicia Quinteros MD [facility] [place] [address] 10/06/2029 Hospital Encounter Main [place] [address] Al Mendez MD [facility] [address] [place] [address] Scheduled Procedures Name Priority Associated Diagnoses Date/Ti me @TOTAL KNEE REVISION ARTHROP LASTY, COMPLETE (WRVU 27.11) Instability Right TKA MODIFIER,GMK REVISION KNEE,MEDACTA Instability Right TKA documented as of this encounter Visit Diagnoses Diagnosis Status post revision of total replacement of left knee documented in this encounter Care Teams Microfiche Camera Operator Relationship Specialty Start Date End Date Bhaskar Morales MD PCP - General Family Medicine 12/18/20 documented as of this encounter
--- OUTSIDE RECORDS SUMMARY | 2024-04-14 10:37 | XMS_ITS | Encounter Summary ---
Author Organization [facility] [place] [address] Care Team Providers Care Analysis Internship Name Role Phone Bhaskar Morales MD Primary Care Provider [phone] Reason for Visit * Auth/Cert Specialty Diagnoses / Procedures Referred By Contac t Referred To Contact Diagnoses Pain in left knee Presence of left artificial knee joint Failed Left TKA Procedures PRO REVISE KNEE JOINT REPLACE, ALL PARTS TOTAL KNEE REVISION ARTHROPLASTY, COMPLETE (WRVU 27.11) MODIFIER,GMK REVISION KNEE,MEDACTA Referral ID Status Reason Start Date Expiration Date Visits Re quested Visits Authorized [id number] 1 1 Encounter Details Date Type Department Care Team (Late st Contact Info) Description 02/15/2021 6:47 AM EDT - 02/16/2021 3:03 PM EDT Hospital Encounter [place] [address] Al Mendez MD [facility] [place] [address] 02/15/2021 S/P revision of left total knee (Dr. Mendez) Discharge Disposition: Home with VNA Social History Tobacco Use Types Packs/Day Years [...] Sign Reading Time Taken Comments Blood Pressure 138/89 02/16/2021 9:02 AM EDT sitting EOB; 116/66 (81) after amb/toileting Pulse 101 02/15/2021 7:07 PM EDT Temperature 37 ??C (98.6 ??F) 02/16/2021 7:1 8 AM EDT Respiratory Rate 18 02/16/2021 7:18 AM EDT Oxygen Saturation 97% 02/16/2021 7:1 8 AM EDT Inhaled Oxygen Concentration - - Weight 130.6 kg (287 lb 14.7 oz) 02/15/2021 7:18 AM EDT Height 154.9 cm (5' 0.98) 02/15/2021 7 :18 AM EDT Body Mass Index 54.43 02/15/2021 7:18 AM EDT documented in this encounter Discharge Summaries * Tere Wayne, [employer] - 02/15/2021 11:09 AM EDT Discharge Summary Patient Name: Quin Santana Patient Age: 55 y.o. Language: Gambian Race: White Ethnicity: Not nor Admit date: 02/15/2021 Discharge date and time: 02/16/2021 Attending Physician: Al Mendez MD Discharge Physician: Al Mendez MD Follow-up Recommendations for Providers: See discharge instructions for additional details. Future Appointments Date Time Provider Department Center 03/20/2021 1:30 PM [facility] DX ROOM 3 MH Xray [facility] Rad 03/20/2021 2:30 PM Al Mendez MD [facility] [place]TH 3C [facility] 08/01/2021 4:30 PM Jhon Giron MD [facility] Inpatient Provider Contact Information: Al Mendez MD Orthopedics: [phone] After hours and weekends, call [facility] Extr[facility] [employer], , and have the Orthopedic resident paged. Discharge Diagnoses (Hospital Problems) and Secondary Diagnoses (Chronic Problems): Active Hospital Problems Diagnosis ??? 02/15/2021 S/P revision of left total knee (Dr. Mendez) ??? Failed total knee, left Resolved Hospital Problems No resolved problems to display. Active Non-Hospital Problems Diagnosis ??? Obstructive sleep apnea syndrome ??? Insomnia ??? Asthma ??? Gastroesophageal reflux disease ??? History of renal calculi ??? Hyperlipidemia ??? Essential hypertension ??? Abnormal glucose level ??? Adult BMI 50.0-59.9 kg/sq m ??? Lactose intolerance ??? Ductal carcinoma in situ (DCIS) of left breast ??? Allergic rhinitis Operations/Major Procedures: 02/15/2021 Surgeon(s) and Role: * Al Mendez MD - Primary * Jason Rodrigez MD - Fellow Procedure(s): LEFT TOTAL KNEE REVISION ARTHROPLASTY, COMPLETE MODIFIER,GMK REVISION KNEE,MEDACTA HPI: Quin Santana is a 55 y.o. female who previously underwent a Left TKA with Dr. Foreman at [place], [place] on 05/02/2015. The knee had done reasonably well until approximately 4 months prior to presentation at [facility] when she squatted down and felt a shift in the knee. She continued with physical therapy until early December when she saw Dr. 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 Inflammatory markers were benign. She was referred to [facility] for further management. Given the catastrophic failure of her polyethylene,and the likely chronic nature of her subluxation I recommended revision total knee arthroplasty with conversion to a semi-constrained or fully constrained prosthesis. We discussed risks of revision surgery including bleeding, blood clots, fractures, patellar instability, INFECTION, delayed wound healing, and medical complications that could include . We also discussed her elevated risks of infection and delayed wound healing due to her BMI of 54.4. Despite the risks discussed the patient wished to proceed with revision LEFT total knee arthroplasty and informed consent was signed in clinic. Hospital Course: The patient was admitted via Same Day Surgery for the above operation. DVT prophylaxis: Rivaroxaban. Patient began rehab on POD#1 w/ weight bearing as tolerated of left leg remembering to use protection at all times for balance and protection. Haynes was removed POD#1 and patient was voiding spontaneously without difficulty. The left knee TORRIE VAC dressing to remain in place 7 days, was inspected on POD#1 and was dry and intact. The patient was given a silver Mepilex to apply for 7 days after the TORRIE is removed on 02/22/21. Pain was well controlled with oral pain medications. Patient did not have a bowel movement prior to discharge but was passing flatus and taking PO without difficulty. By POD#1 the patient was medically stable and was cleared for safe discharge to home. Hospital Consults: None Vital Signs at Discharge: Weight: Wt Readings from Last 1 Encounters: 02/15/21 130.6 kg (287 lb 14.7 oz) Height: Ht Readings from Last 1 Encounters: 02/15/21 154.9 cm (5' 0.98) HC: HC Readings from Last 1 Encounters: No data found for HC BMI: Body mass index is 54.43 kg/m??. Last value Range last 24 hrs Temperature Temp: 37 ??C (98.6 ??F) Temp: [36.7 ??C (98.1 ??F)-37 ??C (98.6 ??F)] Heart Rate Heart Rate: (!) 101 Heart Rate: [98-101] Blood Pressure BP: 138/89 (sitting EOB; 116/66 (81) after amb/toileting ) BP: (104-138)/(62-89) Respiratory Rate Resp: 18 Resp: [16-25] SpO2 SpO2: 97 % SpO2: [93 %-100 %] Functional and Cognitive Status: Patient mobilizing with a walker, cognitively intact at baseline mental status at time of discharge. Important Lab Data: Last 3 wbc, hgb, hct plt Recent Labs 02/16/21 0506 02/06/21 1102 12/26/20 1715 WBC 10.4* 6.0 8.3 HGB 10.2* 12.0 13.1 HCT 31.6* 37.8 40.8 PLATELET 200 238 286 Last 3 Lytes Recent Labs 02/16/21 0506 02/06/21 1102 NA 138 140 K 4.1 4.3 CL 102 101 CO2 27 29 BUN 14 24* CREATININE 0.73 0.85 Pending Lab Data at Discharge: Lab Results Component Value Date JOINTCX 02/15/2021 No growth to date. Incubation time extended to 14 days. GRAMSTAIN 02/15/2021 Cytocentrifuge Gram Stain performed No Neutrophils seen. No microorganisms seen. No results for input(s): URINECULTURE in the last 720 hours. No results for input(s): BLOODCX in the last 720 hours. Studies: XRay Knee 1-2 Views Left (Generic) Result Date: 02/15/2021 EXAMINATION: XR KNEE 1-2 VIEWS LEFT (GENERIC) CLINICAL HISTORY: postop AP and Lateral - whole implant TECHNIQUE: 2 views LEFT knee COMPARISON: Left knee radiographs 12/17/2020 from outside institutionFINDINGS: Interval revision total knee arthroplasty with hinged prosthesis in normal alignment. Expected postoperative soft tissue and intra-articular gas. Interval revision left total knee arthroplasty without immediate complication. I have personally reviewed the image(s) and the resident's interpretation and agree with the findings, Adele Campoverde 02/15/2021 2:07 PM Thank you for letting us participate in the care of this patient. If you are ealth care provider and have any questions regarding this report, please contact the number below.For patients who have questions please contact the health lawn caretaker that requested your imaging first. Electronically signed by: Delores Corral MD, [facility] ([phone]), at 02/15/2021 2:07 PM Transfusions: No Discharge Conditions/Prognosis: Stable, awake, and alert. Mobilizing as noted above, pain controlled on oral medications. Discharge to: Home with VNA. Updated Allergies/ADRs: Allergies Allergen Reactions ??? Hymenoptera Allergenic Extract Anaphylaxis Stinging insects ??? Venom-Honey Bee Other reaction(s): Anaphylaxsis ??? Insect Venom ??? Lactose ??? Levonorgestrel-Ethinyl Estrad ??? Penicillins [facility] Penicillin Allergy Risk Assessment 02/06/2021: Low risk penicillin allergy. OK to receive full dose of cefazolin, cefuroxime, or any 3rd or 4th+ generation cephalosporin. PAT Clinic [facility]ER to place Allergy referral for formal penicillin allergy evaluation. Patient is open to a consult by phone fromallergy clinic. ??? Poison Dalia Extract Immunizations Given this Hospitalization: There is no immunization history on file for this patient. Discharge Medications: Your Medications New Medications Dose Details acetaminophen 500 mg Tab Commonly known as: Tylenol Take 2 tablets by mouth every 8 hours. Continue the Tylenol around the clock for 10 days after surgery, (). Then may take if needed per package insert. Do not take more than 3,000 mg of Tylenol in 24 hours. 1,000 mg Refills: 0 gabapentin 300 mg Cap Commonly known as: Neurontin Take 1 capsule by mouth nightly. Take nightly before bed for sleep for 4 weeks after surgery. 300 mg Quantity: 30 capsule Refills: 0 naproxen 500 mg Tab Commonly known as: NAPROSYN Take 1 tablet by mouth 2 times daily as needed (pain). Take with food for up to 6 weeks after surgery. 500 mg Quantity: 84 tablet Refills: 0 oxyCODONE 5 mg Tab Commonly known as: Roxicodone Take 1-2 tablets by mouth every 4 hours as needed for Pain (Acute post-op surgical pain). 5-10 mg Quantity: 42 tablet Refills: 0 polyethylene glycoL 17 gram [...] 2 times daily. 2 tablet Refills: 0 Continued medications, unchanged Dose [...] budesonide-formoteroL 80-4.5 mcg/actuation Hfaa Commonly known as: Sybmicort Inhale 2 puffs into the lungs. 2 puff Refills: 0 calcium-vitamin D3 600 mg(1,500mg) -200 unit Tab Take 1,200 mg by mouth daily. [...] as needed. 0.3 mg Refills: 0 hydroCHLOROthiazide 50 mg Tab Commonly [...] Generic drug: cholecalciferol (Vitamin D3) Refills: 0 STOPPED Medications BLACK COHOSH ORAL FISH OIL ORAL naproxen sodium 220 mg Tab Commonly known as: ANAPROX Smoking Status at Discharge: Social History Tobacco Use Smoking Status Never Smoker Smokeless Tobacco Never Used Instructions Given to Patient at Discharge: Patient Instructions Activity: 1. Your weight-bearing status is - weight bearing as tolerated of left leg. 2. Remember to use a walker or crutches at all times for balance and protection. Your physical therapist may progress you to using a cane when appropriate. 3. Flexion AND extension are important to work on at home. You should NOT place a pillow under youroperative knee. To help with extension you can place a pillow under your heel or lower leg or placed lengthwise along the operative leg. Again DO NOT place a pillow under the operated knee for comfort. Anti-coagulation: Rivaroxaban - You have been discharged on rivaroxaban (Xarelto) 10mg daily for 30days from surgery. This medication will help decrease your chance of developing a blood clot. Afteryour dose on 03/17/2021, stop the rivaroxaban. Diet: Resume your usual carb control diet but increase your intake of fluids and fiber while you are on narcotic pain meds to prevent constipation. Driving: None until you are cleared to do so by your Orthopedic surgeon. You should not drive whileyou are on narcotic pain meds as they can affect your judgment and reaction time. Call your surgeonwith any questions/concerns. Medications: 1. The pain medication you are on can cause constipation so increase your intake of fluids and fiber while you are on them. The stool softener, Pericolace, that has been prescribed can also be taken to facilitate a bowel movement. You can also take an kkjo-soi-ofkgtij medication, Miralax if needed to combat constipation. 2. If you need a renewal on your narcotic pain medication, you need to give the Orthopedic clinic enough time to process your request. This can take up to three days, so plan accordingly. 3. Continue acetaminophen (Tylenol) 1,000mg every 6 hours around the clock for 1-2 days after surgery. Then reduce to taking every 8 hours until 02/25/2021 (for ten days after your surgery). This can be effective in controlling pain along with your other medications. After that you can take Tylenol as needed per package insert. Do not take more than 4,000mg of acetaminophen in a 24 hour period. 4. You have been discharged on a short acting narcotic, oxycodone. You will be on this medication for a limited period of time only. Take the smallest dose possible to control your pain. As your painimproves take smaller, less frequent doses. You may break the tablet to achieve a smaller dose. 5. You are being discharged on prescription strength naproxen (Aleve). This medication is a type ofnonsteroidal anti-inflammatory (NSAID). This will help with your pain and inflammation. Take this twice a day IF NEEDED for the next 6 weeks. 6. You are being discharged on your usual proton pump inhibitor (Prilosec). This will decrease stomach irritation that may be caused by NSAIDs-naproxen. Take this daily for the next 6 weeks while youare on the NSAID. 7. You are being discharged on gabapentin (Neurontin), a non-narcotic medication that will help with your pain at night and allow you to sleep better. Take this at night for the next 4 weeks. Shower (internal sutures- see instructions for showering with the TORRIE dressing below): 1. You can shower but remember your activity limitations and always have a chair available for balance and protection. DO NOT submerge the dressing/incision. 2. (Mepilex) Do not let water run over the operative dressing. If it becomes wet lightly pat the dressing dry. DO NOT submerge the incision. When this operative dressing is removed (on 03/01/21) you can let water gently run over the incision. 3. You do NOT have any external hi or sutures in place. Your sutures are internal and will be absorbed over time. Wound TORRIE VAC: 1. You have a TORRIE incisional VAC over your knee incision. TORRIE VAC Information (See TORRIE VAC information sheet with your discharge paperwork) You have a dressing in place on your left knee that provides suction known as Negative Pressure Wound Therapy (NPWT). NPWT draws out excess fluid from a wound and protects the incision or wound, in order to help the area heal. This dressing may be left in place for up to 7 days depending on the type of wound and the amount of fluid from the wound. After 7 days, the TORRIE VAC (small white VAC) is removed and discarded. Each TORRIE is for single use. It will stop working after 7 days. Make sure the TORRIE is placed somewhere safe while sleeping so it cannot be pulled off a table or cabinet. The pump may be disconnected from the dressing if needed such as to shower. Press the orange buttonto pause the therapy. Unscrew the two parts of the connector and place the pump somewhere safe. When ready to reconnect, screw the two parts back together. If the VAC is on pause for over an hour, itwill automatically restart. Do not get the TORRIE pump wet. Call your nurse or doctor immediately if: You notice a change in the color or amount of the fluid in the dressing: ??? If it changes from clear to cloudy or bright red. ??? You see the dressing fill rapidly with blood ??? The dressing feels or appears loose. ??? The alarm display will not stop flashing. Seven days after you remove the TORRIE VAC dressing (02/22/2021), apply a silver Mepilex dressing. Leave this dressing in place for 7 days. On 03/01/2021, you may remove the Mepilex dressing and leave the incision open to air if there is no drainage. When it is removed you can leave the incision open to air or cover it with a light dressing. Some patients have an additional item called Prineo on their skin. If you have this it will appear as a mesh dressing directly over the incision. Please leave this in place until your follow up with orthopedics. If you have lots of drainage when you get home (and it is before 02/22/2021), remove the operative dressing and replace it with dry sterile gauze. Continue with daily dressing changes (and as needed) until the drainage stops, then remove the dressing and leave the incision open to air or lightly covered. Misc: Remember that ICE and elevation are very important after surgery to help decrease swelling and control pain. Use ICE for 20-30 minutes at a time and keep your leg elevated as much as possible. Call your doctor ([phone]) if you develop: 1. Fever greater than 100.5 2. Severe nausea or vomiting 3. Increasing pain that is not controlled by pain medications 4. Increasing redness, swelling, or drainage from incisions 5. Change in sensation FOLLOW-UP APPOINTMENTS: 1. You will have follow-up appointments at [facility] as indicated below in Future Appointment and Orders. 2. You will need to have x-rays prior to your follow-up appointment on 03/20/2021. Please come to Radiology, desk 3T, 1 hour BEFORE that appointment for those x-rays. Future Appointments Date Time Provider Department Center 03/20/2021 1:30 PM [facility] DX ROOM 3 MH Xray [facility] Rad 03/20/2021 2:30 PM Al Mendez MD [facility] ORTH 3C [facility] 08/01/2021 4:30 PM Jhon Giron MD [facility] If you have questions or concerns: Thursday through Thursday, 8 AM - 5 PM, please call Dr. Al Mendez MD's office at . If it is after 5 PM, the weekend, or holidays, please call and ask to speak with theOrthopedic resident on-call. General Instructions None Future Appointments and Orders Future Appointments and Orders Future Appointments Provider Department Dept Phone 03/20/2021 1:30 PM [facility] DX ROOM 3 XRay at [facility] Arrive at: [facility] [phone] Please go to [facility] ([place] Location). 03/20/2021 2:30 PM Al Mendze MD Orthopaedics at [facility] Arrive at: [facility] [facility] [phone] 08/01/2021 4:30 PM Jhon Giron MD Dermatology at [place] Arrive at: [facility] [address] [phone] Future Orders Complete By Expires Referral to Home Health - at DISCHARGE [[id number] CPT(R)] As directed Process Instructions: Scheduling Instructions: Comments: DOCUMENTATION FOR VNA SERVICES (INCLUDING PATIENTS WITH MEDICARE COVERAGE BEING DISCHARGED HOME WITH VNA SERVICES AND/OR HOSPICE SERVICES) PATIENT'S LOCATION: Quin Santana Discharge to own home: [address] [place] [address] [address] [facility] [address] [employer] As[employer]er's Name: self In discussion with the attending physician, it is certified that this patient is under their care and that they, or a nurse practitioner, clinical nurse specialist or physician's assistant dean of students who is working directly with them, had a face to face encounter that meets the physician face to face encounter requirements with this patient on 02/16/2021 The encounter with the patient was in whole, or in part, for the following medical condition, whichis the primary reason for home health care services: [Left TKA 02/15/2021 ] In discussion with the primary medical team, it is certified that, based on their findings, the indicated services are medically necessary and appropriate for home health services. HOME HEALTH AGENCY: [facility]. PHONE: [phone] FAX: [phone] 1.Care Home(SN) eval if indicated on admission visit 2. Anticoagulaltion - Rivaroxaban 10 mg daily X 30 days 3. TORRIE Incisional VAC - keep on X 7 days then remove and discard. After TORRIE VAC dressing removed (On 02/22/2021, apply silver Mepilex dressing and keep on for 7 days. Then may remove (on 03/01/2021) and keep incision open to air providing there is no drainage. A dry sterile dressing may be applied and changed daily for comfort. 4. Resorbable sutures - removal not needed. 5. Continue PT rehab for balance, endurance, joint mobility, ROM, Strength, TKA protocol Please note that any additional orders needs or changes will need to be obtained from this patient's PCP: [address] [address] All A agencies which cover patient's residence area have been reviewed, either verbally or in writing, and patient/family have chosen the indicated home health agency. Questions: Agency name and contact information: [facility] Patient location post discharge: Home What services are requested: Physical Therapy Occupational Therapy Start date: Responsible MD post discharge contact info: PCP Primary Care Provider: Bhaskar Morales MD [phone] Discharge References/Attachments None documented in this encounter Discharge Instructions * Patient Instructions* Tere Wayne APRN - 02/16/2021 1:13 PM EDT Activity: 1. Your weight-bearing status is - weight bearing as tolerated of left leg. 2. Remember to use a walker or crutches at all times for balance and protection. Your physical therapist may progress you to using a cane when appropriate. 3. Flexion AND extension are important to work on at home. You should NOT place a pillow under youroperative knee. To help with extension you can place a pillow under your heel or lower leg or placed lengthwise along the operative leg. Again DO NOT place a pillow under the operated knee for comfort. Anti-coagulation: Rivaroxaban - You have been discharged on rivaroxaban (Xarelto) 10mg daily for 30days from surgery. This medication will help decrease your chance of developing a blood clot. Afteryour dose on 03/17/2021, stop the rivaroxaban. Diet: Resume your usual carb control diet but increase your intake of fluids and fiber while you are on narcotic pain meds to prevent constipation. Driving: None until you are cleared to do so by your Orthopedic surgeon. You should not drive whileyou are on narcotic pain meds as they can affect your judgment and reaction time. Call your surgeonwith any questions/concerns. Medications: 1. The pain medication you are on can cause constipation so increase your intake of fluids and fiber while you are on them. The stool softener, Pericolace, that has been prescribed can also be taken to facilitate a bowel movement. You can also take an ffig-ine-lzvjtjp medication, Miralax if needed to combat constipation. 2. If you need a renewal on your narcotic pain medication, you need to give the Orthopedic clinic enough time to process your request. This can take up to three days, so plan accordingly. 3. Continue acetaminophen (Tylenol) 1,000mg every 6 hours around the clock for 1-2 days after surgery. Then reduce to taking every 8 hours until 02/25/2021 (for ten days after your surgery). This can be effective in controlling pain along with your other medications. After that you can take Tylenol as needed per package insert. Do not take more than 4,000mg of acetaminophen in a 24 hour period. 4. You have been discharged on a short acting narcotic, oxycodone. You will be on this medication for a limited period of time only. Take the smallest dose possible to control your pain. As your painimproves take smaller, less frequent doses. You may break the tablet to achieve a smaller dose. 5. You are being discharged on prescription strength naproxen (Aleve). This medication is a type ofnonsteroidal anti-inflammatory (NSAID). This will help with your pain and inflammation. Take this twice a day IF NEEDED for the next 6 weeks. 6. You are being discharged on your usual proton pump inhibitor (Prilosec). This will decrease stomach irritation that may be caused by NSAIDs-naproxen. Take this daily for the next 6 weeks while youare on the NSAID. 7. You are being discharged on gabapentin (Neurontin), a non-narcotic medication that will help with your pain at night and allow you to sleep better. Take this at night for the next 4 weeks. Shower (internal sutures- see instructions for showering with the TORRIE dressing below): 1. You can shower but remember your activity limitations and always have a chair available for balance and protection. DO NOT submerge the dressing/incision. 2. (Mepilex) Do not let water run over the operative dressing. If it becomes wet lightly pat the dressing dry. DO NOT submerge the incision. When this operative dressing is removed (on 03/01/21) you can let water gently run over the incision. 3. You do NOT have any external hi or sutures in place. Your sutures are internal and will be absorbed over time. Wound TORRIE VAC: 1. You have a TORRIE incisional VAC over your knee incision. TORRIE VAC Information (See TORRIE VAC information sheet with your discharge paperwork) You have a dressing in place on your left knee that provides suction known as Negative Pressure Wound Therapy (NPWT). NPWT draws out excess fluid from a wound and protects the incision or wound, in order to help the area heal. This dressing may be left in place for up to 7 days depending on the type of wound and the amount of fluid from the wound. After 7 days, the TORRIE VAC (small white VAC) is removed and discarded. Each TORRIE is for single use. It will stop working after 7 days. Make sure the TORRIE is placed somewhere safe while sleeping so it cannot be pulled off a table or cabinet. The pump may be disconnected from the dressing if needed such as to shower. Press the orange buttonto pause the therapy. Unscrew the two parts of the connector and place the pump somewhere safe. When ready to reconnect, screw the two parts back together. If the VAC is on pause for over an hour, itwill automatically restart. Do not get the TORRIE pump wet. Call your nurse or doctor immediately if: You notice a change in the color or amount of the fluid in the dressing: ??? If it changes from clear to cloudy or bright red. ??? You see the dressing fill rapidly with blood ??? The dressing feels or appears loose. ??? The alarm display will not stop flashing. Seven days after you remove the TORRIE VAC dressing (02/22/2021), apply a silver Mepilex dressing. Leave this dressing in place for 7 days. On 03/01/2021, you may remove the Mepilex dressing and leave the incision open to air if there is no drainage. When it is removed you can leave the incision open to air or cover it with a light dressing. Some patients have an additional item called Prineo on their skin. If you have this it will appear as a mesh dressing directly over the incision. Please leave this in place until your follow up with orthopedics. If you have lots of drainage when you get home (and it is before 02/22/2021), remove the operative dressing and replace it with dry sterile gauze. Continue with daily dressing changes (and as needed) until the drainage stops, then remove the dressing and leave the incision open to air or lightly covered. Misc: Remember that ICE and elevation are very important after surgery to help decrease swelling and control pain. Use ICE for 20-30 minutes at a time and keep your leg elevated as much as possible. Call your doctor ([phone]) if you develop: 1. Fever greater than 100.5 2. Severe nausea or vomiting 3. Increasing pain that is not controlled by pain medications 4. Increasing redness, swelling, or drainage from incisions 5. Change in sensation FOLLOW-UP APPOINTMENTS: 1. You will have follow-up appointments at [facility] as indicated below in Future Appointment and Orders. 2. You will need to have x-rays prior to your follow-up appointment on 03/20/2021. Please come to Radiology, desk 3T, 1 hour BEFORE that appointment for those x-rays. Future Appointments Date Time Provider Department Center 03/20/2021 1:30 PM [facility] DX ROOM 3 Xray [facility] Rad 03/20/2021 2:30 PM Al Mendez MD [facility] [place]TH 3C [facility] 08/01/2021 4:30 PM Jhon Giron MD [facility] If you have questions or concerns: Thursday through Thursday, 8 AM - 5 PM, please call Dr. Al Mendez MD's office at . If it is after 5 PM, the weekend, or holidays, please call and ask to speak with theOrthopedic resident on-call. documented in this encounter Medications at Time of Discharge [...] Use with spacer oxyCODONE (Roxicodone) 5 mg Tablet Take 1-2 tablets by mouth every 4 hours as needed for Pain (Acute post-op surgical pain). 42 tablet 02/16/2021 02/22/2021 rivaroxaban (Xarelto) 10 mg Tablet Take 1 [...] 04/08/2018 01/15/2022 documented as of this encounter Progress Notes * Janeth Saravia RN - 02/16/2021 1:21 PM EDT [facility] Short Stay Unit Discharge Note All relevant discharge milestones have been met by the patent. After Visit Summary and discharge teaching reviewed with the patient. IV access has been discontinued. All personal belongings have been returned to the patient/family upon their departure from the unit. Patient has been discharged to home The patient has been discharged with VNA services. Discharge Summary has been sent. * John Coppola, PT - 02/16/2021 12:07 PM EDTSummary: PT eval. Tolerable pain after IV Toradol.Pt able to perform & tolerate TKA exs, mobilize/ambulate w/ FWW w/ S onnly WBAT RLE, cleared for DC, home PT Physical Therapy Evaluation Patient profile: Quin Robertson a 55 y.o. y/o female admitted on 02/15/[address] Al Mendez MD for L TKA. Referred to PT per pathway. Patient with the following active problems: Past Medical History: Diagnosis Date ??? Anxiety ??? Asthma ??? Cancer Breast Cancer ??? Chronic anxiety ??? CPAP (continuous positive airway pressure) dependence ??? Environmental allergies ??? Gastroesophageal reflux ??? GERD (gastroesophageal reflux disease) ??? High blood pressure ??? HTN (hypertension) ??? Hypercholesteremia ??? Hyperlipidemia ??? Motion sickness ??? Obstructive sleep apnea ??? Status post radiation therapy ??? Thyroid nodule Past Surgical History: Procedure Laterality Date ??? BREAST REDUCTION SURGERY Bilateral 1995 ??? JOINT REPLACEMENT Left knee 05/02/15, Right Knee 11/25/17 ??? KNEE SURGERY Bilateral ??? MAMMO STEREOTACTIC BIOPSY LEFT N/A 05/10/2018 Mammo Stereotactic Biopsy Left 05/10/2018 Jinny Gutierrez MD [facility] RAD MAMMOGRAPHY ??? PRO MASTECTOMY PARTIAL Left 06/24/2018 MASTECTOMY PARTIAL (WRVU 10.13) performed by Frances Zee MD at [facility] MAIN OR Social History: ?? 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 Entrance has a ramp and ptwill not have to do stairs once inside. BR w/ tub/shower, grab bar, shower chair, standard toilet w/ tub/sink as hand holds ?? PLOF: pt is fully independent with I/ADLs at baseline. ?? DME: cruzito walker, shower chair, grab bars in shower ?? Falls: pt denies recent falls ?? Precautions/Special Considerations: at risk to fall, WBAT LLE, regular diet Mobility and Positioning Recommendations: ?? OOB (flat) using leg recreational vehicle resort manager if needed to self assist LLE. ?? Ice to L knee as needed 20-30 minutes at a time. ?? Pt should utilize FWW and S for ambulation and transfers Subjective: ???I am so proud of myself, I never thought I'd be able to do that today. Thank you so much?? Objective: Pt seen for initial eval, TKA protocol exs and precaution teaching w/ bed mobility, transfers and gait on level w/ FWW. Reviewed home management and DC Plan. Vital Signs: Stable t/o w/ no reported lightheadedness or dizziness when mobilizing/ambulating Pain: Tolerable level of pain 40 mins after given 15 mg of IV Toradol , stiffness reported initially but improved after exs and ambulation, Ice applied at end of session to L knee and pt encouraged to cont to use ice several times/day at home for pain and swelling. Skin: Incision w/ PIVO dressing which will remain in place x 7 days Musculoskeletal: ROM: L knee 75-80 active flexion in sitting after exercises and repetitions 0 isometric extension in supine Strength: + SAQ, FAQ and SLR w/ pt able to use leglifter prn for bed mob. Does plan to sleep in recliner Sensation: intact w/ N block resolved Bed Mobility: OOB w/ OT, not assessed. Pt reports high bed at home and plan to sleep in recliner initially. Will have home PT progress her back to her bed . Transfers: Sit >< Stand: to/from FWW (pt's own cruzito FWW) Gait: X 100 ft w/ FWW w/ pt able to effectively use her arms on walker to minimize limp and understands the importance of this Stairs: NA, pt w/ no stairs to manage Education/Exercise Instruction: Pt given an exercise list and instructed in the ex's for home including: ankle pumps, gluteal, adductor, quad and hamstring sets 10 reps of each performed prior to mobility, followed by seated knee flexion and LAQ. Pt was instructed in precautions and is able to demonstrate understanding. Assessment: Pt is now POD # 1 s/p L TKA presenting with expected but tolerable (~ 40 mins after 15 mg of Toradol) post operative knee pain and swelling resulting in decreased ROM, strength impacting functional balance, mobility, gait and ADL. After instruction, pt was able to demonstrate good understanding and performance of protocol exercises, maintain precautions, mobilize and ambulate safely on level w/ FWW. Pt has met all in-pt goals and cleared for DC to home w/ plan as outlined below. Plan: d/c inpt PT. Discharge Recommendations: Home with Home PT, 29/12 S Equipment needs for home at d/c: Patient has all necessary equipment Patient status, treatment, and mobility recommendations have been discussed with nursing, Care management and Medical team. Thank you for this consult. JOHN COPPOLA, PT Pager: [phone] Physical Therapy Inpatient Rehabilitation Department Time IN / OUT: 2016 PT Evaluation Code Rationale: ?? Diagnosis & Pertinent Co-Morbidities, personal factors, and present illness affecting Plan of Care: (see above); Additional personal factors or co- morbidities that impact plan: ?? Total # of Factors: 0 1-2 3+ x ?? Examination of body system impairments, functional limitations and behaviors, and/or participation restrictions. Addressing 1-2 elements Addressing 3 + elements x Addressing 4 + elements ?? Clinical presentation: See assessment above. Stable/Uncomplicated Evolving/Fluctuating Symptoms Unstable/Unpredictable x ?? Clinical decision making of low complexity based on pt's functional performance as outlined in this evaluation. * Torri Doherty RN - 02/16/2021 10:39 AM EDT The patient has been provided a list of Home Health Agencies which serve their preferred geographicarea. Provided patient with [facility] Star Quality Rating for Home care hand out. Patient requests referral to [facility] PHONE: [phone] FAX: [phone]. Expected date of discharge: 02/16/2021 Referral routed to the Route Sales Manager for matching with agency/vendor and to provide any required information. * Lizzy Pearce OT - 02/16/2021 9:02 AM EDT Occupational Therapy Evaluation Patient profile: Quin Santana is a 55 y.o. female s/p L revision TKA 02/15/21. Past Medical History: Diagnosis Date ??? Anxiety ??? Asthma ??? Cancer Breast Cancer ??? Chronic anxiety ??? CPAP (continuous positive airway pressure) dependence ??? Environmental allergies ??? Gastroesophageal reflux ??? GERD (gastroesophageal reflux disease) ??? High blood pressure ??? HTN (hypertension) ??? Hypercholesteremia ??? Hyperlipidemia ??? Motion sickness ??? Obstructive sleep apnea ??? Status post radiation therapy ??? Thyroid nodule Past Surgical History: Procedure Laterality Date ??? BREAST REDUCTION SURGERY Bilateral 1995 ??? JOINT REPLACEMENT Left knee 05/02/15, Right Knee 11/25/17 ??? KNEE SURGERY Bilateral ??? MAMMO STEREOTACTIC BIOPSY LEFT N/A 05/10/2018 Mammo Stereotactic Biopsy Left 05/10/2018 Jinny Gutierrez MD [facility] RAD MAMMOGRAPHY ??? 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 Entrance has a ramp and pt will not have to do stairs once inside. PLOF: pt is fully independent with I/ADLs at baseline. DME: cruzito walker, shower chair, grab bars in shower Falls: pt denies recent falls Precautions/Special Considerations: at risk to fall, WBAT LLE, regular diet Subjective: I'm a little nervous about this. Re: OOB mobility Objective: Seen today for OT evaluation. Pain: 2-3/10 at rest; 6/10 with ambulation Vitals: o Pt on RA; increased WOB with minimal exertion, pt denied SOB o BP: 116/69 (88) mmHg; 138/89 (104) sitting EOB, 80/59 (66) after ambulation and 116/66 on recheckwithin 1 min. Pt asymtomatic. Cognitive Status/Behavior: ?? Behavior / Mood: alert, cooperative and anxious ?? Alert and oriented to: person, place, time and situation ?? Follows commands: multi step and 100% of the time ?? Attention: WFL ?? Safety awareness: WFL Vision & Perception: WNL/WFL corrective lenses multimedia programmer Communication/Hearing: WFL Musculoskeletal: Hand dominance: right Strength/AROM: BUE grossly WFL. RLE WFL. L knee AROM decreased d/t pain. Pt unable to tolerate fullWB through LLE d/t pain. Coordination: intact Sensation: intact; pt denies numbness or tingling Skin: Torrie dressing over L knee Activities of Daily Living: Self-feeding: independent Grooming: NA Dressing: donned underpants, pants, and slip-on shoes with supervision. Bathing: NA Toileting: independent with bladder hygiene and clothing management. Mod I for transfer using grab bar and walker for support Functional Mobility: Supine to sit: mod I using leg recreational vehicle resort manager and with HOB elevated Sit to stand: supervision with FWW; extra time and 1 cue for hand placement needed Ambulation: supervision/mod I with FWW x 5 ft Stand to sit: supervision Sit to supine: NA Balance: Static sitting: good Dynamic sitting: good Static standing balance: good Dynamic standing balance: good with UE support Education: Patient has been educated on Role of occupational therapy/rehabilitation, Transfers, ADL, Positioning, Safety, Functional Mobility, Activity pacing/Energy conservation, Balance, Recommendations and Discharge planning and pt verbalized understanding. Patient status, treatment, and mobility recommendations discussed with nursing. Assessment: Pt has been seen for occupational therapy evaluation. Quin Santana presents with the following performance skill deficits and client factors: increased pain, decreased activity tolerance, decreased flexibility/ROM, decreased sitting/standing balance, body habitus, precautions/bracing, c ompromised mobility status and coping. These performance deficits have led to activity limitations and participation restrictions in the following areas of occupation: dressing, bathing, toileting, home management, work, driving and community mobility. However, despite the deficits listed above pt demonstrates the ability to perform her basic ADLs and functional mobility with supervision to mod Iusing a FWW for support. Pt was receptive to education on compensatory strategies for ADLs and transfers and to recommendation for home OT/PT services at d/c. Anticipate that pt will return home withassistance once medically ready. Do not anticipate further OT needs while hospitalized. Equipment needs at discharge: none Anticipated Discharge Disposition (OT): home with home health Staff Recommendations: ??? Bathroom for toileting ??? Reorient pt multiple times a day as needed ??? Ambulate 3x/day ??? Assist pt OOB to chair for meals ??? Promote wellbeing through engagement in leisure and relaxation activities ??? Encourage good sleep hygiene with appropriate sleep/wake cycles ??? Utilize upright chair position using bed features or transfer to recliner chair as appropriate ??? Encourage participation in ADL's and provide physical assist only as needed Plan: OT: Therapy Frequency (OT): evaluation only Total Minutes, Occupational Therapy: 54 (Evaluation ) 2017 OT Evaluation Code Rationale: ?? Diagnosis & Pertinent Co-Morbidities affecting Plan of Care: see PMHx ?? Occupational Profile & Client History: Brief Expanded Extensive x ?? Assessment of Occupational Performance: 1-3 performance deficits 3-5 performance deficits x 5 + performance deficits ?? Clinical Decision Making: Low Moderate High x Clinical decision making of low complexity using standardized patient assessment instrument and measurable assessment of functional outcome. Pager: [phone] Lizzy Pearce OTR/L Occupational Therapy Rehabilitation Department * Ever, Sung Hooks MD - 02/16/2021 6:58 AM EDT ORTHOPAEDIC SURGERY INPATIENT PROGRESS NOTE Patient Name: Quin Santana Age: 55 y.o. Surgery/Issue: Left Total Knee Revision Arthroplasty Attending: Dr. Mendez Date of surgery: 02/15/2021 SUBJECTIVE / INTERVAL HISTORY: VSS. Marquis MARCIAL removed this AM, has not yet voided. Patient notes her knee pain is well controlled. Hgb noted to be 10.2, which represents expected postoperative anemia from acute blood loss and hemodilution. Denies CP, SOB, nausea, vomiting, numbness/weakness. FOCUSED REVIEW OF SYSTEMS: as above. Active Hospital Problems Diagnosis ??? Failed total knee, left Resolved Hospital Problems No resolved problems to display. Active Non-Hospital Problems Diagnosis ??? Obstructive sleep apnea syndrome ??? Insomnia ??? Asthma ??? Gastroesophageal reflux disease ??? History of renal calculi ??? Hyperlipidemia ??? Essential hypertension ??? Abnormal glucose level ??? Adult BMI 50.0-59.9 kg/sq m ??? Lactose intolerance ??? Ductal carcinoma in situ (DCIS) of left breast ??? Allergic rhinitis MEDICATIONS: ??? BUpivacaine (pf) (Marcaine) (2.5 mg/mL) 0.25% injection ??? cloNIDine (pf) (Duraclon) (100 mcg/mL) Epidural injection ??? ketorolac (Toradol) (30 mg/mL) injection ??? atorvastatin (Lipitor) tablet 40 mg ??? lisinopriL (Zestril) tablet 20 mg ??? budesonide-formoteroL (Sybmicort) 80-4.5 mcg/actuation inhaler 2 Inhalation ??? citalopram (CeleXA) tablet 30 mg ??? hydroCHLOROthiazide (Hydrodiuril) tablet 25 mg ??? lamoTRIgine (LaMICtal) tablet 50 mg ??? pantoprazole EC (Protonix) tablet 40 mg ??? sodium chloride 0.9 % (flush) (BD PosiFlush Normal Saline 0.9) flush 5 mL ??? sodium chloride 0.9 % (flush) (BD PosiFlush Normal Saline 0.9) flush 5-20 mL ??? lidocaine (Xylocaine) 1% (10 mg/mL) injection 3 mg ??? polyethylene glycoL (Miralax) packet 17 g ??? senna-docusate (Pericolace) 8.6-50 mg per tablet 2 tablet ??? bisacodyl EC (Dulcolax) tablet 10 mg ??? bisacodyL (Dulcolax) suppository 10 mg ??? acetaminophen (Tylenol) tablet 1,000 mg ??? gabapentin (Neurontin) capsule 600 mg FOLLOWED BY [START ON 02/17/2021] gabapentin (Neurontin) capsule 300 mg ??? ketorolac (Toradol) (15 mg/mL) injection 15 mg ??? celecoxib (CeleBREX) capsule 200 mg ??? dexamethasone (Decadron) tablet 4 mg ??? sodium chloride 0.9% infusion ??? ceFAZolin (Ancef) 2 g in dextrose 5% 100 mL (2 x 1 g/50 mL premix bags) infusion ??? oxyCODONE (Roxicodone) tablet 5-15 mg ??? ondansetron (Zofran) tablet 4 mg OR ondansetron (pf) (Zofran) (2 mg/mL) injection 4 mg ??? rivaroxaban (Xarelto) tablet 10 mg ??? lidocaine (pf) (Xylocaine) (20 mg/mL) 2% injection syringe ??? propofoL (Diprivan) 10 mg/mL bolus injection (Anesthesia) ??? rocuronium (Zemuron) (10 mg/mL) multi-dose injection ??? PHENYLephrine in NS (PF) (CLAYTON-SYNEPHRINE) 0.8 mg/10 mL (80 mcg/mL) multi- dose injection Syrg ??? PHENYLephrine (Clayton-Synephrine) (80 mcg/mL) in sodium chloride 0.9% 250 mL infusion ??? ondansetron (pf) (Zofran) (2 mg/mL) injection ??? dexamethasone (Decadron) injection ??? lactated ringers infusion ??? ePHEDrine sulfate (5 mg/mL) multi-dose injection ??? sugammadex (Bridion) 100 mg/mL injection ??? glycopyrrolate (Robinul) (0.2 mg/mL) multi-dose injection ??? sodium chloride 0.9% 1,000 mL (02/15/21 1330) OBJECTIVE: Temp: [36.5 ??C (97.7 ??F)-36.8 ??C (98.2 ??F)] Heart Rate: [88-102] Resp: [16-37] BP: (92-135)/(51-84) Intake/Output Summary (Last 24 hours) at 02/16/2021 0658 Last data filed at 02/16/2021 0548 Gross per 24 hour Intake 2685 ml Output 1780 ml Net 905 ml Body mass index is 54.43 kg/m??. Exam: General: NAD, awake/alert CV: RRR assessed peripherally Resp: Breathing comfortably on RA LLE: Dressing c/d/i. In cryocuff. Motor intact to EHL, FHL, TA. Sensation intact in foot/calf. Brisk capillary refill distally. Difficulty palpating PT and DP pulses secondary to body habitus. DP and PT strong doppler signals bilaterally. Lab Results Component Value Date NA 138 02/16/2021 K 4.1 02/16/2021 CL 102 02/16/2021 CO2 27 02/16/2021 BUN 14 02/16/2021 CREATININE 0.73 02/16/2021 GLUCOSE 150 02/16/2021 CALCIUM 9.3 02/16/2021 Lab Results Component Value Date WBC 10.4 (H) 02/16/2021 HGB 10.2 (L) 02/16/2021 HCT 31.6 (L) 02/16/2021 MCV 85.4 02/16/2021 PLATELET 200 02/16/2021 Lab Results Component Value Date INR 1.1 02/06/2021 ASSESSMENT / PLAN: Quin Santana is a 55 y.o. female s/p L revision TKA 02/15/21. Progressing well with stable vitals. Haynes removed this AM. Plan for discharge pending evaluation by PT/OT, hermann tovoid. Activity: WBAT Closure: Resorbable sutures Dressing: TORRIE iVac Drain: NA Anticoagulation: PEPPER Study and Rivaroxaban 10 mg qAM for 30 days Antibiotics: periop Cefazolin x 24 hrs Consults: PT/OT Dispo: pending PT/OT eval Follow-up: As sheduled Sung Curtis MD 02/16/2021 Future Appointments Date Time Provider Department Center 03/20/2021 1:30 PM [facility] DX ROOM 3 Xray [facility] Rad 03/20/2021 2:30 PM Al Mendez MD [facility] [place] 3C [facility] 08/01/2021 4:30 PM Jhon Giron MD [facility] * Tyshawn Borjas MD - 02/15/2021 4:48 PM EDT ORTHOPAEDIC SURGERY INPATIENT PROGRESS NOTE Patient Name: Quin Santana Age: 55 y.o. Surgery/Issue: Left Total Knee Revision Arthroplasty Attending: Dr. Mendez Date of surgery: 02/15/2021 SUBJECTIVE / INTERVAL HISTORY: Pain notes her knee pain is well controlled. Denies CP, SOB, nausea, vomiting, numbness/weakness. Patient has a haynes in place. She notes that she does not currently have an appetite has been workingon a popsicle. She would be interested in ordering breakfast tomorrow. FOCUSED REVIEW OF SYSTEMS: as above. Active Hospital Problems Diagnosis ??? Failed total knee, left Resolved Hospital Problems No resolved problems to display. Active Non-Hospital Problems Diagnosis ??? Obstructive sleep apnea syndrome ??? Insomnia ??? Asthma ??? Gastroesophageal reflux disease ??? History of renal calculi ??? Hyperlipidemia ??? Essential hypertension ??? Abnormal glucose level ??? Adult BMI 50.0-59.9 kg/sq m ??? Lactose intolerance ??? Ductal carcinoma in situ (DCIS) of left breast ??? Allergic rhinitis MEDICATIONS: ??? BUpivacaine (pf) (Marcaine) (2.5 mg/mL) 0.25% injection ??? cloNIDine (pf) (Duraclon) (100 mcg/mL) Epidural injection ??? ketorolac (Toradol) (30 mg/mL) injection ??? sodium chloride 0.9 % (flush) (BD PosiFlush Normal Saline 0.9) flush 5 mL ??? sodium chloride 0.9 % (flush) (BD PosiFlush Normal Saline 0.9) flush 5-20 mL ??? lidocaine (Xylocaine) 1% (10 mg/mL) injection 3 mg ??? polyethylene glycoL (Miralax) packet 17 g ??? senna-docusate (Pericolace) 8.6-50 mg per tablet 2 tablet ??? bisacodyl EC (Dulcolax) tablet 10 mg ??? bisacodyL (Dulcolax) suppository 10 mg ??? acetaminophen (Tylenol) tablet 1,000 mg ??? gabapentin (Neurontin) capsule 600 mg FOLLOWED BY [START ON 02/17/2021] gabapentin (Neurontin) capsule 300 mg ??? ketorolac (Toradol) (15 mg/mL) injection 15 mg ??? celecoxib (CeleBREX) capsule 200 mg ??? dexamethasone (Decadron) tablet 4 mg ??? pantoprazole EC (Protonix) tablet 20 mg ??? sodium chloride 0.9% infusion ??? ceFAZolin (Ancef) 2 g in dextrose 5% 100 mL (2 x 1 g/50 mL premix bags) infusion ??? oxyCODONE (Roxicodone) tablet 5-15 mg ??? ondansetron (Zofran) tablet 4 mg OR ondansetron (pf) (Zofran) (2 mg/mL) injection 4 mg ??? [START ON 02/16/2021] rivaroxaban (Xarelto) tablet 10 mg ??? lidocaine (pf) (Xylocaine) (20 mg/mL) 2% injection syringe ??? propofoL (Diprivan) 10 mg/mL bolus injection (Anesthesia) ??? rocuronium (Zemuron) (10 mg/mL) multi-dose injection ??? PHENYLephrine in NS (PF) (CLAYTON-SYNEPHRINE) 0.8 mg/10 mL (80 mcg/mL) multi- dose injection Syrg ??? PHENYLephrine (Clayton-Synephrine) (80 mcg/mL) in sodium chloride 0.9% 250 mL infusion ??? ondansetron (pf) (Zofran) (2 mg/mL) injection ??? dexamethasone (Decadron) injection ??? lactated ringers infusion ??? ePHEDrine sulfate (5 mg/mL) multi-dose injection ??? sugammadex (Bridion) 100 mg/mL injection ??? glycopyrrolate (Robinul) (0.2 mg/mL) multi-dose injection ??? sodium chloride 0.9% OBJECTIVE: Temp: [36.5 ??C (97.7 ??F)-36.7 ??C (98.1 ??F)] Heart Rate: [88-102] Resp: [17-37] BP: (92-134)/(51-84) Intake/Output Summary (Last 24 hours) at 02/15/2021 1434 Last data filed at 02/15/2021 1221 Gross per 24 hour Intake 1700 ml Output 580 ml Net 1120 ml Body mass index is 54.43 kg/m??. Exam: General: NAD, awake/alert CV: RRR assessed peripherally Resp: Breathing comfortably on RA LLE: Dressing c/d/i. In cryocuff. Motor intact to EHL, FHL, TA. Sensation intact in foot/calf. Brisk capillary refill distally. Difficulty palpating PT and DP pulses secondary to body habitus. DP and PT strong doppler signals bilaterally. Lab Results Component Value Date NA 140 02/06/2021 K 4.3 02/06/2021 CL 101 02/06/2021 CO2 29 02/06/2021 BUN 24 (H) 02/06/2021 CREATININE 0.85 02/06/2021 GLUCOSE 118 02/06/2021 CALCIUM 10.7 (H) 02/06/2021 Lab Results Component Value Date WBC 6.0 02/06/2021 HGB 12.0 02/06/2021 HCT 37.8 02/06/2021 MCV 84.4 02/06/2021 PLATELET 238 02/06/2021 Lab Results Component Value Date INR 1.1 02/06/2021 ASSESSMENT / PLAN: Quin Santana is a 55 y.o. female s/p L revision TKA 02/15/21. Progressing well with stable vitals. Activity: WBAT Closure: Resorbable sutures Dressing: TORRIE iVac Drain: NA Anticoagulation: PEPPER Study and Rivaroxaban 10 mg qAM for 30 days Antibiotics: periop Cefazolin x 24 hrs Consults: PT/OT Dispo: pending PT/OT eval Follow-up: As sheduled Tyshawn Borjas MD 02/15/2021 Future Appointments Date Time Provider Department Center 03/20/2021 1:30 PM [facility] DX ROOM 3 Xray [facility] Rad 03/20/2021 2:30 PM Al Mendez MD [facility] [place]TH 3C [facility] 08/01/2021 4:30 PM Jhon Giron MD [facility] documented in this encounter H&P Notes * Jason Rodrigez MD - 02/15/2021 7:59 AM EDT Patient Name: Quin Santana Patient Age: 55 y.o. Birthdate: 1965 Admit date: 02/15/2021 Attending Physician: Al Mendez MD 24-HOUR UPDATE Quin Santana was seen in [facility]. No interval events or changes in health status since preoperative H+P (see EPIC). Denies angina/dyspnea/fevers or malaise within the last 14 days. All questions were answered. Stable for surgery as scheduled. documented in this encounter Miscellaneous Notes * Op Note - Al Mendez MD - 02/15/2021 9:02 AM EDT [facility] Operative Note Patient Name: Quin Santana : [id number] MR#: [id number] Case Date: 02/15/2021 Surgeon: Surgeon(s) and Role: * Al Mendez MD - Primary * Jason Rodrigez MD - Fellow (no qualified resident available) Preoperative diagnosis: Failed Left TKA Postoperative diagnosis: 1. Failed Left TKA 2. Catastrophic polyethylene failure, left knee 3. Aseptic loosening, left tibial component 4. Class III Morbid obesity (BMI at time of surgery 54.4) Procedure(s) (LRB): TOTAL KNEE REVISION ARTHROPLASTY, COMPLETE (WRVU 27.11) (Left) MODIFIER,GMK REVISION KNEE,MEDACTA (Left) 22 Modifier for increased procedural services Anesthesia: General Estimated Blood Loss: 300 mL Specimens removed during surgery: Order Name Source Comment Collection Info Order Time SPECIMEN TO PATHOLOGY Failed Left TKA scar and synovium, left knee excision 02/15/2021 9:27 AM Time specimen removed from patient: 9:17 AM Number of tissue samples (in container) 1 Joint fluid aspirated and sent for cell count and culture Explants to [facility] lab Drains: * No LDAs found * Tourniquet: 126min @ 275mmHg Surgical Closure: Primary Closure - skin incision is completely closed without any wires, sabas, drains or other devices Disposition: awakened from anesthesia, extubated and taken to the recovery room in a stable condition, having suffered no apparent untoward event. Condition: doing well without problems (Please see the Surgical Encounter Summary for any Implant and Specimen details pertinent to this patient.) HPI/Surgical Indications: Quin Santana is a 55 y F who previously underwent a Left TKA with Dr. Foreman at [facility] in [place], [place] on 05/02/2015. The knee had done reasonably well until approximately 4 months prior to presentation at [facility] when she squatted down and felt a shift in the knee. She continued with physical therapy until early December when she saw Dr. 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 Inflammatory markers were benign. She was referred to [facility] for further management. Given the catastrophic failure ofher polyethylene, and the likely chronic nature of her subluxation I recommended revision total knee arthroplasty with conversion to a semi-constrained or fully constrained prosthesis. We discussed risks of revision surgery including bleeding, blood clots, fractures, patellar instability, INFECTION, delayed wound healing, and medical complications that could include . We also discussed her elevated risks of infection and delayed wound healing due to her BMI of 54.4. Despite the risks discussed the patient wished to proceed with revision LEFT total knee arthroplasty and informed consent was signed in clinic. Findings:??Clear yellow joint fluid aspirated (cell count 358, 24% PMNs). ??Upon entering the knee there was extensive metal staining of the synovium. Catastrophic polyethylene failure was noted on the posterior medial corner with metal wear of the posterior medial corner of tibial tray and corresponding area on the distal femur. Femur and patella were well fixed, femur was removed with no additional bone loss. ??Patella retained. Tibia was grossly loose and debonded from cement. ? Components Inserted: ?? Medacta GMK??Revision components ?Femoral Component: Size??3 GMK revision ?Augments:??12mm distal??medial,??8mm distal lateral ?Femoral stem:??14mm x??65??mm press fit??with 3mm offset adapter ?Femoral??cone: none ?Polyethylene:??20mm??SC??Fixed bearing ?Tibial Component: Size 2 GMK Revision ?Augments: none ?Tibial Stem: 12mm x 65mm press- fit??with 5mm offsetadapter ?Tibial??cone:??none ?Cement:??2 x??40g bag of MV abx cement ?? Procedure Description:??The patient was identified in the preoperative holding area and her historyand physical and surgical consent were reviewed and confirmed. ??An adductor canal block was placedby the regional anesthesia team. ??She was then brought to the operating room where the above anesthetic was administered. ?A foot post??and thigh post??were??placed for assistance with intraoperative positioning. ??A haynes catheter was placed. All bony prominences were well-padded. ??A nonsterile tourniquet was positioned on the operative thigh and secured with foam tape. ??She was administered 3 g of intravenous cefazolin as well as weight-based 15 mg/kg tranexamic acid. ??A surgical timeout was held to confirm the patient's identity and planned surgical procedure including site and laterality as well as to address any safety concerns. ??There were no safety concerns and all parties were in agreement to proceed. ?? The patient's??left??lower extremity was then circumferentially prepped with chlorhexidine soap, alcohol, and ChloraPrep and draped in the standard sterile fashion. ?? The knee was exsanguinated with an Esmarch bandage and the tourniquet was inflated to 275 mmHg. ??The patient's previous anterior scar was incised with a #10 scalpel and sharp dissection was carried down through the subcutaneous tissue until the extensor mechanism was reached. ??Full-thickness medial and lateral skin flaps were developed. ??The knee was flexed to??90??degrees and a needle was inserted into the femoral notch and 15 cc of clear yellow joint fluid was easily aspirated. ??There wassent for stat cell count which returned??358??cells of which??24% were polymorphonucleocytes. ??Fluid was also sent for standard cultures. ??We then performed a medial quadricep splitting parapatellar arthrotomy and elevated the periosteum and other soft tissue around the medial joint line past themid coronal line of the tibia. ?We then performed a complete synovectomy beginning medially and working laterally and we reestablished the medial and lateral gutters.? The polyethylene was exonerated with an osteotome and mallet. ??Catastrophic wear was noted as above.??The tibia was grossly loose and debonded from underlying cement. It was removed by hand. The femur was inspected and no micromotion was seen. ??A microsagittal saw and chisels were used to loosen the femur and it was removed without additional bone loss. ??The patella was retained. ??An osteotome and rongeur were used to break and remove the remaining cement around the tibial keel. ??The femoral and tibial canals were opened with a charnley awl. ? The tibia was subluxed anterior with a sharp cris and a bent cris was placed laterally to retractthe extensor mechanism. ??We began reaming the tibial canal sequentially up to a 12mm diameter which gave excellent endosteal contact and intramedullary alignment. ??A 0 degree revision cutting guidewas placed over the reamer handle and pinned. ??An oscillating saw was then used to perform a freshening cut of the proximal tibia and extra bone and remaining cement were removed. A size 2 tibial tray trial was placed and with a 5mm offset bushing were were able to obtain excellent coverage. ??Thetray was pinned and the proximal tibia was prepared with the appropriate bushings and reamers. ??A size 2 tray trial with 5mm offset bushing and 12mm x 65mm stem trial was assembled and impacted and the tray sat flush with the tibia. ??The keel punch was used to finish the tibia. Attention turned to the femur. ?? The femoral canal was reamed up to 14mm which gave excellent endosteal contact and intramedullary alignment. ??A 6 degree distal cutting block was placed over the reamer handle and the distal femoralcut was refreshed for distal augments. Given her previous distal femoral resection of 12 mm and herhyperextension on exam, I added addition 4mm the the distal augment cuts to bring her joint line back to anatomic position, 12mm distal medial and 8mm distal lateral.??A size 3 femur was determined to be the best fit. ??No posterior augments were required and femoral rotation was appropriate. A 3mmoffset bushing gave appropriate alignment with the femoral stem. The box cutting guide was placed over the femur, pinned and the box was then cut with the reciprocating saw. ??A cut through femoral trial was assembled with an 14mm x 65mm stem and appropriate distal augments. The trial was impacted and sat flush. The final trial was assembled and inserted with a 20mm CR poly and the knee was extended. ??We achieved full extension and the extension and flexion gaps were well balanced with appropriate patellar tracking. ?? The trial components were removed.?? The bone and soft tissue was copiously irrigated with normal saline for 3L total and all bony surfaces were cleared of bone and debris. ??The posterior capsule and periosteum and synovium around the distal femur and proximal tibia were injected with 50cc of the anesthetic cocktail with 0.25% marcaine, 50mcg of clonidine and 30mg of toradol. ??Gloves were changed. ??On the back table the implants were opened and assembled according to meat stock clerk instructions. ??2 40g bags of medium viscosity abx cement were mixed under vacuum suction and buttered on the backside of the tibial and femoral components to the level of the offset bushings. Cement was hand pressurized into the tibia and then the implant was inserted and impacted. ??Excess cement was removed. ??Cement was hand pressurized into the femur and then the femoral component was inserted. Excess cement was removed. The trial 20mm poly was inserted and the knee reduced until cement was cured. When cement was hardened we confirmed flexion and extension balancing and the poly was removed and any cement was removed from the back of the knee. ??The real semi- constrained poly was opened and impacted and the set screw was tightened. ??The knee was reduced and final patella tracking and gap balance were confirmed. ?? The tourniquet was released after 126 minutes and hemostasis was achieved. ??The arthrotomy was closed with #1 vicryl and oversewn with #2 running stratafix suture. ??ROM with the arthrotomy closed was 0-130. ??The deep subq tissue were closed with 0 running vicryl and superficial subq with interrupted 2-0 vicryl. ??The skin was closed with running 3-0 monocryl suture and dermabond skin glue. ??Asterile TORRIE dressing was applied. ??All needle and sponge counts were correct at the conclusion ofthe case. ? The patient was aroused from sedation, transferred back to her hospital bed and taken to recovery in stable condition with no apparent complications.?? This procedure was considerably more difficult than the standard Procedure(s): TOTAL KNEE REVISION ARTHROPLASTY, COMPLETE (WRVU 27.11) MODIFIER,THE [facility] REVISION KNEE,MEDACTA. The procedure was more difficult for several reasons: Serious medical co-morbidities: Past Medical History: Diagnosis Date ??? Anxiety ??? Asthma ??? Cancer Breast Cancer ??? Chronic anxiety ??? CPAP (continuous positive airway pressure) dependence ??? Environmental allergies ??? Gastroesophageal reflux ??? GERD (gastroesophageal reflux disease) ??? High blood pressure ??? HTN (hypertension) ??? Hypercholesteremia ??? Hyperlipidemia ??? Motion sickness ??? Obstructive sleep apnea ??? Status post radiation therapy ??? Thyroid nodule Patient Active Problem List Diagnosis Code ??? [...] G47.33 ??? Failed total knee, left T84.093A Increase blood loss - 300cc after tourniquet was released Increased dissection - BMI 54 with significant adipose tissue over anterior knee Increase intra-op complexity and necessary expertise (use of augments, patient transferred, etc.) -Patient was transferred from a board certified orthopaedic surgery for my revision expertise given the catastrophic polyethylene failure and possible need for hinged implant ???Given the above factors, I estimate that this case was 100% more difficult than the standard Procedure(s): TOTAL KNEE REVISION ARTHROPLASTY, COMPLETE (WRVU 27.11) MODIFIER,GMK REVISION KNEE,MEDACTA Viet Ulloa MD was critical for patient positioning and retraction during the case as well as assisting with closure because no other additional qualified resident was available. Infection Bundle used? N/A Attestation: Case Date: 02/15/2021 I was present and I participated during the entire procedure (does not need to include opening and closing). Al Mendez MD 02/15/2021 Implant Name Type Inv. Item Serial No. Service Desk Manager Lot No. LRB No. Used Action CEMENT BONE MEDIUM VISCOSITY 40GM GENTAMICIN SINGLE DOSE ([id number]) - [id number] IMPLANTS CEMENT BONE MEDIUM VISCOSITY 40GM GENTAMICIN SINGLE DOSE ([id number]) [employer] [id number] Left 1 Implanted CEMENT BONE MEDIUM VISCOSITY 40GM GENTAMICIN SINGLE DOSE ([id number]) - [id number] IMPLANTS CEMENT BONE MEDIUM VISCOSITY 40GM GENTAMICIN SINGLE DOSE ([id number]) [employer] [id number] Left 1 Implanted COMP FEMORAL KNEE SZ 2 LEFT TOMER PS COCR ([id number]) (AUTOREQ) - [id number] IMPLANTS COMP FEMORAL KNEESZ 2 LEFT TOMER PS COCR ([id number]) (AutoReq) MEDACTA [place] - MEDACTA [place] [id number] Left 1 Implanted AUGMENT FEM KNEE 12MM SIZE 3 DIST TI GMK ([id number]) (AUTOREQ) - [id number] IMPLANTS AUGMENT FEM [id number] SIZE 3 DIST TI GMK ([id number]) (AutoReq) [employer]ACT[employer] [place] - [place]ACTA [place] [id number] Left 1 Implanted AUGMENT FEM KNEE 12MM SIZE 3 DIST TI GMK ([id number]) (AUTOREQ) - [id number] IMPLANTS AUGMENT FEM [id number] SIZE 3 DIST TI GMK ([id number]) (AutoReq) [employer]ACT[employer] [place] - [place]ACT[employer] [place] [id number] Left 1 Implanted BASEPLATE TIBIAL SZ 2 LEFT TOMER COCR GMK ([id number]) (AUTOREQ) - [id number] IMPLANTS BASEPLATE TIBIAL SZ 2 LEFT TOMER COCR GMK ([id number]) (AutoReq) [employer] [place] - [place]ACT[employer] [place] [id number] Left 1 Implanted FEMORAL COMPONENT ADAPTER KNEE 3MM TOMER ([id number]) (AUTOREQ) - [id number] IMPLANTS FEMORAL COMPONENT ADAPTER KNEE 3MM TOMER ([id number]) (AutoReq) [employer]ACTA [place] - MEDACT[employer] [place] [id number] Left 1 Implanted FEMORAL COMPONENT ADAPTER KNEE 5MM TOMER ([id number]) (AUTOREQ) - [id number] IMPLANTS FEMORAL COMPONENT ADAPTER KNEE 5MM TOMER ([id number]) (AutoReq) [employer]ACTA [place] - MEDACT[employer] [place] [id number] Left 1 Implanted STEM EXT KNEE [id number] POR FLUTED COCR ([id number]) (AUTOREQ) - [id number] IMPLANTS STEM EXT KNEE [id number] POR FLUTED COCR ([id number]) (AutoReq) [employer] [place] - [place]ACT[employer] [place] [id number] Left 1 Implanted WEDGE FEM KNEE 8MM SIZE 3 DIST TI GMK ([id number]) (AUTOREQ) - [id number] IMPLANTS WEDGE FEM KNEE 8MM SIZE 3 DIST TI GMK ([id number]) (AutoReq) [employer]ACTA [place] - MEDACTA [place] [id number] Left 1 Implanted INSERT TIBIAL 20MM SZ 2 FIX POLY GMK (1572498) (AUTOREQ) - [id number] IMPLANTS INSERT TIBIAL 20MM SZ 2 FIX POLY GMK ([id number]) (AutoReq) [employer]ACTA [place] - MEDACT[employer] [place] [id number] Left 1 Implanted documented in this encounter Plan of Treatment Upcoming Encounters Date Type Department Care Team (Late st Contact Info) Description 05/30/2024 10:00 AM EST Appointment Mammography/[place] [address] Alicia Quinteros MD [facility] [address] [place] [address] 08/11/2024 4:15 PM EST Office Visit Dermatology at [place] [address] [place] [phone] Jhon Giron MD [address], [place] [address] 11/21/2024 2:00 PM EDT Office Visit Radiation Oncology at [address] [phone] Alicia Quinteros MD [facility] DR RADI[place] [address] 10/06/2029 Hospital Encounter [place] [address] Al Mendez MD [facility] DR ORTHOP[place] [address] Scheduled Procedures Name Priority Associated Diagnoses Date/Ti me @TOTAL KNEE REVISION ARTHROP LASTY, COMPLETE (WRVU 27.11) Instability Right TKA MODIFIER,GMK REVISION KNEE,MEDACTA Instability Right TKA documented as of this encounter Procedures Procedure Name Priority Date/Time Associated Diagnosis Comments POCT GLUCOSE Routine 02/16/2021 12:44 PM EDT HEMOGRAM Routine 02/16/2021 5:06 AM EDT DIFFERENTIAL, AUTOMATED Routine 02/16/2021 5:06 AM EDT HC VENIPUNCTURE Routine 02/16/2021 5:06 AM EDT BASIC METABOLIC PANEL Routine 02/16/2021 5:06 AM EDT XR KNEE AP & LAT LEFT Routine 02/15/2021 12:51 PM EDT SURGICAL PATHOLOGY REPORT Routine 02/15/2021 9:27 AM EDT SPECIMEN TO PATHOLOGY Routine 02/15/2021 9:27 AM EDT HC GRAM STAIN FOR BACTERIA Routine 02/15/2021 9:11 AM EDT JOINT CULTURE Routine 02/15/2021 9:11 AM EDT ANAEROBIC CULTURE Routine 02/15/2021 9:1 1 AM EDT IRON STAIN, BODY FLUID STAT 02/15/2021 9:11 AM EDT HC BODY FLUID CELL CT W/DIFF STAT 02/15/2021 9:11 AM EDT RAPID COVID-19 PCR ([facility]) Routine 02/15/2021 8:50 AM EDT MODIFIER,GMK REVISION KNEE,MEDACTA 02/15/2021 8:24 AM EDT Failed Left TKA Revise Knee Joint Replace, All Parts ([id number]) 02/15/2021 8:24 AM EDT Failed Left TKA POCT GLUCOSE Routine 02/15/2021 7:52 AM EDT TOTAL KNEE REVISION ARTHROPLASTY, COMPLETE Routine 02/15/2021 7:02 AM EDT IMPLANTABLE DEVICES SCAN 02/15/2021 12:00 AM EDT POCT URINE Routine 02/15/2021 documented in this encounter Results * POCT Glucose (02/16/2021 12:44 PM EDT) Glucose, POC 153 65 - 199 mg/dL [facility] Comment: Supplemental ranges: <140 mg/dL before meals <180 mg/dL all other times of the day Blood 02/16/2021 12:4 4 PM EDT 02/16/2021 12:44 PM EDT Al Mendez MD POINT OF CARE TEST O RDERABLES [facility] [place] [address] * (ABNORMAL) Differential, Automated (02/16/2021 5:06 AM EDT) Neutrophil % 87.3 % [facility] Neutrophil Absolute 9.13(H) 1.70 - 6.10 x10(3)/[facility]AT[facility] Lymph % 4.9 % [facility] Lymphocytes Abs 0.5(L) 0.9 - 3.2 x10(3)/[facility] LABORATORY Monocyte % 7.3 % [facility] Monocyte Abs 0.8 0.3 - 0.9 x10(3)/[facility] LABORATORY Eos % 0.0 % [facility] Eosinophils Abs 0.0 0.0 - 0.4 x10(3)/[facility] LABORATORY Basophil % 0.1 % [facility] Baso Absolute 0.0 0.0 - 0.1 x10(3)/[facility] LABORATORY Immature Gran % 0.40 % [facility] Comment: Immature granulocytes(IG's)percentage and absolute count will include metamyelocytes, myelocytes, and promyelocytes. Blood smears from CBCs yielding IG's will be scanned manually for concordance. If this scan disagrees with the automated IG or if promyelocytes are noted, a manual differential will be performed. Immature Gran Absolute 0.04 0.00 - 0.04 x10(3)/[facility] LABORATORY Blood 02/16/2021 5:06 AM EDT 02/16/2021 5:12 AM EDT Narrative Resulting Agency Comment Spec In Lab Tyshawn Borjas MD HEMATOLOGY ORDERABLE S [facility] [place] [address] * (ABNORMAL) Hemogram (02/16/2021 5:06 AM EDT) White Blood Cell 10.4(H) 4.0 - 9.5 x10(3)/[facility] LAB[facility]ATORY Red Blood Cell 3.70(L) 4.00 - 5.21 x10(6)/ L [facility] Hemoglobin 10.2(L) 11.7 - 15.5 gm/dL [facility] Hematocrit 31.6(L) 35.7 - 45.8 % [facility] Mean Cell Volume 85.4 82.6 - 94.4 fL [facility] Mean Cell Hemoglobin 27.6 27.1 - 32.0 pg [facility] Mean Cell Hemoglobin Concentration 32.3 31.7 - 35.0 gm/dL [facility] Platelet 200 145 - 357 x10(3)/[facility] LABORATORY RDW Standard Deviation 45.3 37.0 - 46.0 [facility]ATORY RDW coefficient of variation 14.5(H) 11.5 - 14.1 % [facility] Mean Platelet Volume 10.8 7.6 - 12.9 [facility]ORY NRBC% auto 0.0 % [facility] NRBC Absolute 0.000 0.000 - 0.000 x10(3)/[facility]ATORY Blood 02/16/2021 5:06 AM EDT 02/16/2021 5:12 AM EDT Narrative Resulting Agency Comment Spec In Lab Tyshawn Borjas MD HEMATOLOGY ORDERABLE S [facility] [place] [address] * Basic Metabolic Panel (non-fasting) (02/16/2021 5:06 AM EDT) Glucose 150 65 - 199 mg/dL [facility] Comment:Diabetes: >=200 mg/d L plus symptoms Blood Urea Nitrogen 14 8 - 18 mg/dL [facility] Creatinine 0.73 0.70 - 1.20 mg/dL [facility] Sodium 138 135 - 145 mmol/L [facility] Potassium 4.1 3.5 - 5.0 mmol/L [facility] Comment: Please note: ??Patients with WBC >100,000 may have falsely elevated Potassium levels. ??For accurate Potassium quantification in these patients send serum separator tube (gold top) for subsequent determinations. ??Contact the Clinical Chemistry Laboratory if there are any questions. Chloride 102 98 - 107 mmol/L [facility] Carbon Dioxide 27 22 - 31 mmol/L [facility] Anion Gap 9 5 - 15 mmol/L [facility] Calcium 9.3 8.5 - 10.5 mg/dL [facility] Est Glomerular Filtration Rate 93 >=60 mL/min/1. 73 m?? [facility] Comment: This patient? s estimated glomerular [...] In Lab Al Mendez MD CHEMISTRY ORDERABLES [facility] [place] [address] * XR Knee 1-2 Views Left (Generic) (02/15/2021 12:51 PM EDT) Anatomical Region Laterality Modality Knee Left Digital Radiogra phy Impressions 02/15/2021 2:07 PM EDT Interval revision left total knee arthroplasty without immediate complication. I have personally reviewed the image(s) and the resident's interpretation and agree with the findings, Delores Corral MD at 02/15/2021 2:07 PM Thank you for letting us participate in the care of this patient. ??If you are a health care provider and have any questions regarding this report, please contact the number below. ??For patients who have questions please contact the health lawn caretaker that requested your imaging first. ? Electronically signed by: Delores Corral MD, [facility] ([phone]), at 02/15/2021 2:07 PM Narrative 02/15/2021 2:07 PM EDT EXAMINATION: XR KNEE 1-2 VIEWS LEFT (GENERIC) CLINICAL HISTORY: postop AP and Lateral - whole implant TECHNIQUE: 2 views LEFT knee COMPARISON: Left knee radiographs 12/17/2020 from outside institution FINDINGS: Interval revision total knee arthroplasty with hinged prosthesis in normal alignment. Expected postoperative soft tissue and intra-articular gas. Procedure Note Delores Corral MD - 02/15/2021 EXAMINATION: XR KNEE 1-2 VIEWS LEFT (GENERIC) CLINICAL HISTORY: postop AP and Lateral - whole implant TECHNIQUE: 2 views LEFT knee COMPARISON: Left knee radiographs 12/17/2020 from outside institution FINDINGS: Interval revision total knee arthroplasty with hinged prosthesis innormal alignment. Expected postoperative soft tissue and intra-articular gas. IMPRESSION Interval revision left total knee arthroplasty without immediatecomplication. I have personally reviewed the image(s) and the resident's interpretationand agree with the findings, Delores Corral MD at 02/15/2021 2:07 PM Thank you for letting us participate in the care of this patient. If youare a health care provider and have any questions regarding this report,please contact the number below. For patients who have questions please contactthe health lawn caretaker that requested your imaging first. Electronically signed by: Delores Corral MD, [facility]([phone]), at 02/15/2021 2:07 PM Jason Rodrigez MD IMG DX ORDERABLES * Surgical Pathology Report (02/15/2021 9:27 AM EDT) Final Diagnosis [id number] ? Location: [facility]; [facility]; The signing pathologist has (i) examined the relevant preparation(s) for the specimen(s) and (ii) rendered or confirmed the diagnosis(es). . ?Surgical Pathology DIAGNOSIS A - Soft tissue, scar and synovium, left knee, excision: ??- Hyperplastic synovium with extensive prosthetic wear ?debris reaction, necrosis, and scar. ??- No significant acute inflammation is identified. Electronically signed by: ?Gabe NICOLAS, Soha Rivers Verified: ??02/25/2021 16:11 ??Pathologist Performed at: ??-[facility] [place], [place], [place] SPECIMEN(S) SUBMITTED A - Soft tissue, scar and synovium, left knee, excision CLINICAL INFORMATION Failed left TKA SPECIMEN PROCESSING A - Labeled/Fixative : Scar and synovium left knee, fresh. Quantity/Size: Two, 10.0 x 5.6 x 2.5 cm combined. Tissue Description: Portions of fibroadipose tissue, both of which have pink-red to black membranous surfaces. The membranous surfaces are notable for extensive villous excrescences. Sections/Process ing: Campaign Worker sections in 2 cassettes labeled A1-A2. ??ajw 02/25/2021 4:11 PM EDT [facility] SYNOVIUM BIOPSY SPECIMEN / Unknown 02/15/2021 9:27 AM EDT 02/15/2021 9:27 AM EDT Al Mendez MD PATHOLOGY/CYTOLOGY O RDERABLES Performing Organization Address City/[facility]/[place] [address] * Specimen to Pathology (02/15/2021 9:27 AM EDT) AP Specimen 02/15/2021 9:27 AM EDT 02/15/2021 9:27 AM EDT Narrative [facility] - 02/15/2021 9:27 AM EDT Specimen requisition ordered. ??Separate Pathology report to follow Al Mendez MD PATHOLOGY/CYTOLOGY O RDERABLES Performing Organization Address [facility] [place] [address] * Iron Stain, Body Fluid (02/15/2021 9:11 AM EDT) Iron Stain BF Type Knee fluid [facility] Body Fluid Iron Stain, Fld See Comment [facility] Comment:Knee fluid negative for hemosiderin. Knee Joint Fluid Other / Unknown 02/16/20 9:11 AM EDT 02/15/2021 9:17 AM EDT Narrative Resulting Agency Comment Spec In Lab Al Mendez MD HEMATOLOGY ORDERABLE S Performing Organization Address City/[facility]/ZIP Co de Phone Number [facility] [place] [address] * Anaerobic Culture (02/15/2021 9:11 AM EDT) Anaerobic Culture No anaerobic organisms isolated [facility] Joint Fluid STRUCTURE OF LEFT KNEE REGION / Unknown 02/15/2021 9:11 AM EDT 02/15/2021 9:23 AM EDT Narrative Resulting Agency Comment Spec In Lab Al Mendez MD MICROBIOLOGY - GENER AL ORDERABLES Performing Organization Address City/[facility]/ZIP Co de Phone Number [facility] [place] [address] * Joint Culture (02/15/2021 9:11 AM EDT) Joint Culture No growth at 14 days. [facility] Gram Stain Cytocentrifuge Gram Stain performed No Neutrophils seen. No microorganisms seen. [facility] Joint Fluid STRUCTURE OF LEFT KNEE REGION / Unknown 02/15/2021 9:11 AM EDT 02/15/2021 9:23 AM EDT Narrative Resulting Agency Comment Spec In Lab Al Mendez MD MICROBIOLOGY - GENER AL ORDERABLES [facility] [place] [address] * Cell Count Body Fluid Knee Joint Fluid (02/15/2021 9:11 AM EDT) Body Fluid Source Knee Fl [facility] Color, Fld Mission [facility] Appearance, Fld Slightly Cloudy [facility] WBC Count, Fld 358 /mcl [facility] Comment: Guideline listed below apply to all body fluids. When Body Fluid WBC count is greater than Zero, a smear is made and scanned. All scan information is correlated with numeric results prior to being released to patients chart. The reference interval(s) and other method performance specifications have not been established for this body fluid. The test result must be integrated into the clinical context for interpretation. Called by: KALE, Read back by: Diane Pineda, Date-Time:02-15-21 1005. Polymorphonuclear cells BF % 24 % [facility] Comment: Polymorphonuclear cell percent and absolute values may contain Neutrophils, Eosinophils, and Basophils. Body fluid smear will be scanned manually for concordance. Mononuclear cells BF % 76 % [facility] Comment: Mononuclear cell percent and absolute values may contain Lymphocytes and Monocytes. Body fluid smear will be scanned manually for concordance. Hemosiderin suspected-to be confirmed by iron stain. Polymorphonuclear cells BF ABS 87 /mcl [facility] Comment: Polymorphonuclear cell percent and absolute values may contain Neutrophils, Eosinophils, and Basophils. Body fluid smear will be scanned manually for concordance. Mononuclear cells BF ABS 271 /mcl [facility] Comment: Mononuclear cell percent and absolute values may contain Lymphocytes and Monocytes. Body fluid smear will be scanned manually for concordance. Knee Joint Fluid 02/15/2021 9:11 AM EDT 02/15/2021 9:17 AM EDT Narrative Resulting Agency Comment Spec In Lab Al Mendez MD BODY FLUIDS AND DELANEY CAVAZOS ORDERABLES [facility] [place] [address] * COVID-19 PCR (02/15/2021 8:50 AM EDT) SARS-CoV-2 RNA (Rapid) Not Detected Not Detected [facility] Comment: This result should be interpreted in combination with the clinical observations, patient history and epidemiological information. For testing of asymptomatic individuals, assay performance characteristics and clinical utility have not been evaluated. Testing for SARS-CoV-2 (Severe acute respiratory syndrome coronavirus 2, formerly known as 2019 novel coronavirus or 2019-nCoV) to aid in the diagnosis of COVID-19 is performed using the Simplexa COVID-19 Direct Assay by [employer] as authorized by the FDA issued Emergency Use Authorization (EUA). This assay is intended for In-vitro Diagnostic (IVD) use with nasopharyngeal swabs collected from individuals meeting the CDC criteria for testing. The assay is performed based on the instructions for use and additional guidance provided by the FDA. Testing is performed in the Microbiology Laboratory within the Department of Pathology and Laboratory Medicine at [facility], certified under the Clinical Laboratory Improvement Amendments of 1988 (CLIA), 42 U.S.C. section 263a, to perform high complexity tests. Assay performance has been verified according to clinical laboratory regulatory requirements. Test results are provided above. A result of Not Detected indicates that the viral RNA target is not present but does not preclude SARS-CoV-2 infection. False negative results may occur if a specimen is improperly collected, transported or handled; if amplification inhibitors are present; or if inadequate numbers of viral particles are present in the specimen. A result of Detected suggests a current or recent infection and the patient is presumed to be infected. Positive and negative predictive values for this test are highly dependent on disease prevalence. A result of Invalid indicates the inability to conclusively determine the presence or absence of SARS-CoV-2 RNA in the sample which can be due to a variety of factors. Recollection is recommended in the case of an invalid result. CDC COVID-19 criteria for testing on human specimens and clinical management guidance information are available at the CDC Coronavirus Disease 2019 (COVID-19) webpage under Information for Healthcare Professionals (https://www.cdc.gov/coronavirus/2019-ncov/hcp/index.html). Additional information about this and other EUA tests can be found in provider and patient fact sheets at the following FDA website: https://www.fda.gov/medical-devices/xulusiijanz-swdcctt-1055-yphwd-87-qumaykisi- use-a hqdwwxhkmubjd-ajaaynk-dgczrid/phvml-mcgnkufhviq-wmua SARS-CoV-2 Source [employer]PERATIONS ANALYST Swab ID RY [facility] Nasopharyngeal Swab 02/16/20 8:50 AM EDT 02/15/2021 9:35 AM EDT Comment:Symptoms->Surveillan ce Narrative Resulting Agency Comment Spec In Lab Al Mendez MD MICROBIOLOGY - GENER AL ORDERABLES Performing Organization Address City/[facility]/ZIP Co de Phone Number [facility] [place] [address] * POCT Glucose (02/15/2021 7:52 AM EDT) Glucose, POC 116 65 - 199 mg/dL [facility] Comment: Supplemental ranges: <140 mg/dL before meals <180 mg/dL all other times of the day Blood 02/15/2021 7:52 AM EDT 02/15/2021 7:52 AM EDT Al Mendez MD POINT OF CARE TEST O RDERABLES Performing Organization Address City/[facility]/ZIP Co de Phone Number [facility] [place] [address] * SCAN DOC: IMPLANTABLE DEVICES (02/15/2021 12:00 AM EDT) Unknown MEDIA MGR SCAN EXT O RDR/RSLT * POCT urine (02/15/2021) POC Urine HCG Negative Negative - Negative POC Control Internal Controls Acceptable 02/15/2021 Al Mendez MD POINT OF CARE TEST O RDERABLES documented in this encounter Visit Diagnoses Diagnosis 02/15/2021 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 documented in this encounter Administered Medications Inactive Administered Medications - up to 3 most recent administrations Medication Order MAR Action Action Date Dose Rate Site acetaminophen (Tylenol) tablet 1,000 mg 1,000 mg, Oral, ONCE, 1 dose, On Thu02/15/21 at 0730, Administer on arrival in Same Day Program, Day of Surgery (Day of Procedure), Routine Given 02/15/2021 7:40 AM EDT 1,000 mg acetaminophen (Tylenol) tablet 1,000 mg 1,000 mg, Oral, EVERY 8 HOURS SCHEDULED, First dose on Thu02/15/21 at 1515, Until Discontinued, Maximum dose of acetaminophen is 4000 mg from all sources in 24 hours. When ordered for pain, acetaminophen should be given even when other ordered pain medications are indicated. , Routine Given 02/16/2021 5:38 AM EDT 1,000 mg Given 02/15/2021 10:44 PM EDT 1,000 mg Given 02/15/2021 2:44 PM EDT 1,000 mg acetaminophen (Tylenol) tablet 1,000 mg 1,000 mg, Oral, EVERY 6 HOURS SCHEDULED, First dose (after last modification) on Thu02/16/21 at 1230, Until Discontinued, Maximum dose of acetaminophen is 4000 mg from all sources in 24 hours. When ordered for pain, acetaminophen should be given even when other ordered pain medications are indicated. , Routine Given 02/16/2021 12:07 PM EDT 1,000 mg atorvastatin (Lipitor) tablet 40 mg 40 mg, Oral, NIGHTLY, First dose on Thu02/15/21 at 2100, Until Discontinued, Routine Given 02/15/2021 10:46 PM EDT 40 mg ceFAZolin (Ancef) 2 g in dextrose 5% 100 mL (2 x 1 g/50 mL premix bags) infusion 2 g, Intravenous, EVERY 8 HOURS, 3 doses, First dose on Thu02/15/21 at 1330, Last dose on Thu02/16/21 at 0530, Administer over 30 Minutes, Adjust to 4 hours from intraoperative dose. * Beta-lactam based antibiotics (eg. Ampicillin, Cefazolin, Aztreonam) should be administered within 4 hours of the preceding intraoperative dose. * Vancomycin, Fluoroquinolones, Clindamycin, Gentamicin, and Metronidazole should be administered within 8 hours of the preceding intraoperative dose. Total dose of ceFAZolin 2 grams, administered using two ceFAZolin 1g/50mL IV bags. Infuse each ceFAZolin 1g/50mL bag over 30 minutes (100 ml/hr) for total infusion time of 60 minutes. On the MAR, document administration of first bag using New Bag (1 of 2) MAR action for dose of 1g. On the MAR, document administration of second bag using Next Bag (2 of 2) MAR action for dose of 1g (resulting in total dose of 2g)., Recovery (Recovery-Hospital Unit), Indication for (Active or Suspected): Prophylaxis New Bag (1 of 2) 02/15/2021 10:49 PM EDT 1 g 100 mL/hr New Bag (1 of 2) 02/15/2021 1:05 PM EDT 1 g 100 mL/ hr ceFAZolin (Ancef) 2 g in dextrose 5% 100 mL infusion 2 g, Intravenous, EVERY 8 HOURS, 1 dose, First dose on Thu02/16/21 at 1130, Administer over 30 Minutes, Indication for (Active or Suspected): Skin/Skin Structure New Bag 02/16/2021 10:51 AM EDT 2 g 200 mL/hr celecoxib (CeleBREX) capsule 200 mg 200 mg, Oral, 2 TIMES DAILY, First dose on Thu02/15/21 at 2100, Until Discontinued, Routine Given 02/16/2021 8:18 AM EDT 200 mg Given 02/15/2021 10:47 PM EDT 200 mg celecoxib (CeleBREX) capsule 400 mg 400 mg, Oral, ONCE, 1 dose, On Thu02/15/21 at 0730, Administer on arrival to Same Day Program, Day of Surgery (Day of Procedure), Routine Given 02/15/2021 7:41 AM EDT 400 mg citalopram (CeleXA) tablet 30 mg 30 mg, Oral, EVERY MORNING, First dose on Thu02/16/21 at 0900, Until Discontinued, Routine Given 02/16/2021 8:19 AM EDT 30 mg dexamethasone (Decadron) tablet 4 mg 4 mg, Oral, DAILY, 2 doses, First dose on Thu02/15/21 at 1700, Last dose on Thu02/16/21 at 0900, Routine Given 02/16/2021 8:20 AM EDT 4 mg Given 02/15/2021 4:47 PM EDT 4 mg dextrose 10% infusion 250 mL, at 1,000 mL/hr, Intravenous, EVERY 30 MIN PRN, Starting on Thu02/16/21 at 0951, Until Thu02/16/21 at 1703, For BG 50-70 mg/dL: Oral treatment preferred: If able to drink, give 120 mL Juice or Regular (not diet) soda OR If NPO, give 15 gram glucose 40% oral gel massaged into buccal mucosa OR if unconscious or uncooperative, give 25 gram (250 mL) Dextrose 10% IV over 15 minutes per protocol OR, if no IV access, 1 mg Glucagon IM. For BG less than 50 mg/dL: Oral treatment preferred: If able to drink, give 240 mL Juice or Regular (not diet) soda OR If NPO, give 30 gram glucose 40% oral gel massaged in buccal mucosa OR if unconscious or uncooperative, give 25 gram (250 mL) Dextrose 10% IV over 15 minutes per protocol OR, if no IV access, 1 mg Glucagon IM. Recheck BG in 30 minutes. May repeat juice/soda, gel, dextrose or glucagon once per episode. For persistent hypoglycemia, consider longer-acting treatment for the duration of the active insulin. fentaNYL (PF) (50 mcg/mL) injection 50 mcg 50 mcg, Intravenous, EVERY 5 MIN PRN, Starting on Thu02/15/21 at 0714, Until Thu02/15/21 at 1423, Pain, or prior to injection of local anesthetic., Hold for respiratory rate less than 8 breaths per minute. (maximum dose 200 mcg), Day of Surgery (Day of Procedure), Routine Given 02/15/2021 8:16 AM EDT 50 mcg gabapentin (Neurontin) capsule 300 mg 300 mg, Oral, NIGHTLY, First dose on Thu02/17/21 at 2100, Until Discontinued, Routine gabapentin (Neurontin) capsule 600 mg 600 mg, Oral, NIGHTLY, 2 doses, First dose on Thu02/15/21 at 2100, Last dose on Thu02/16/21 at 2100, Routine Given 02/15/2021 10:47 PM EDT 600 mg glucagon (Glucagen) (1 mg/mL) injection solution 1 mg 1 mg, Intramuscular, EVERY 30 MIN PRN, Starting on 02/16/21 at 0951, Until 02/16/21 at 1703, Low blood sugar, For BG 50-70 mg/dL: Oral treatment preferred: If able to drink, give 120 mL Juice or Regular (not diet) soda OR If NPO, give 15 gram glucose 40% oral gel massaged into buccal mucosa OR if unconscious or uncooperative, give 25 gram (250 mL) Dextrose 10% IV over 15 minutes per protocol OR, if no IV access, 1 mg Glucagon IM. For BG less than 50 mg/dL: Oral treatment preferred: If able to drink, give 240 mL Juice or Regular (not diet) soda OR If NPO, give 30 gram glucose 40% oral gel massaged in buccal mucosa OR if unconscious or uncooperative, give 25 gram (250 mL) Dextrose 10% IV over 15 minutes per protocol OR, if no IV access, 1 mg Glucagon IM. Recheck BG in 30 minutes. May repeat juice/soda, gel, dextrose or glucagon once per episode. For persistent hypoglycemia, consider longer-acting treatment for the duration of the active insulin., Routine glucose (GLUTOSE) 40% oral geL 15-30 g, Buccal, EVERY 30 MIN PRN, Starting on 02/16/21 at 0951, Until 02/16/21 at 1703, Low blood sugar, For BG 50-70 mg/dL: Oral treatment preferred: If able to drink, give 120 mL Juice or Regular (not diet) soda OR If NPO, give 15 gram glucose 40% oral gel massaged into buccal mucosa OR if unconscious or uncooperative, give 25 gram (250 mL) Dextrose 10% IV over 15 minutes per protocol OR, if no IV access, 1 mg Glucagon IM. For BG less than 50 mg/dL: Oral treatment preferred: If able to drink, give 240 mL Juice or Regular (not diet) soda OR If NPO, give 30 gram glucose 40% oral gel massaged in buccal mucosa OR if unconscious or uncooperative, give 25 gram (250 mL) Dextrose 10% IV over 15 minutes per protocol OR, if no IV access, 1 mg Glucagon IM. Recheck BG in 30 minutes. May repeat juice/soda, gel, dextrose or glucagon once per episode. For persistent hypoglycemia, consider longer-acting treatment for the duration of the active insulin. 1 tube contains 15 grams of glucose (net weight of tube = 37.5 grams., Routine hydroCHLOROthiazide (Hydrodiuril) tablet 25 mg 25 mg, Oral, DAILY, First dose on 02/16/21 at 0900, Until Discontinued, Hold for systolic blood pressure less than 130, Routine Given 02/16/2021 8:19 AM EDT 25 mg HYDROmorphone (Dilaudid) (2 mg/mL) multi-dose injection solution 0.4 mg 0.4 mg, Intravenous, EVERY 10 MIN PRN, Starting on Thu02/15/21 at 1158, Until Thu02/15/21 at 1423, Pain, For Moderate to Severe Pain (6-10 out of 10), Hold for respiratory rate less than 10 per minute. Maximum dose 3 mg over one hour including administrations in the OR. If multiple pain medications are ordered, start with HYDROmorphone or morphine and use fentaNYL for breakthrough pain, PACU Recovery, Routine Given 02/15/2021 1:21 PM EDT 0.4 mg Given 02/15/2021 12:58 PM EDT 0.4 mg Given 02/15/2021 12:43 PM EDT 0.4 mg insulin lispro (HumaLOG;Admelog) (100 unit/mL) subcutaneous injection vial 1-4 Units 1-4 Units, Subcutaneous, EVERY 4 HOURS SCHEDULED, First dose on 02/16/21 at 1200, Until Discontinued, CORRECTION BOLUS [1-4 Units] Sensitive Sliding Scale (BG in mg/dL): Correction factor 40 (1 unit of insulin is expected to drop the glucose 40 mg/dL) BG 160 - 200 Give 1 unit BG 201 - 240 Give 2 units BG 241 - 280 Give 3 units BG greater than 280, give 4 units and recheck BG in 2 hours. - If recheck BG is LESS than 280, give no insulin and resume schedule - If recheck BG is GREATER than 280, give 4 units and repeat BG in 2 hours (no more than 3 times) & call for new insulin orders. DO NOT hold if NPO, unless specifically directed to do so by written order. Per Blood Glucose Monitoring Policy, re-check a BG of > 240 mg/dL in 2 hours., Routine ketorolac (Toradol) (15 mg/mL) injection 15 mg 15 mg, Intravenous, EVERY 6 HOURS PRN, Starting on Thu02/15/21 at 1428, Until 02/16/21 at 1703, Pain, Routine Given 02/16/2021 10:38 AM EDT 15 mg Given 02/15/2021 10:55 PM EDT 15 mg lactated ringers infusion 1,000 mL, at 100 mL/hr, Intravenous, CONTINUOUS, Starting on Thu02/15/21 at 0730, Until Thu02/15/21 at 1423, Day of Surgery (Day of Procedure) New Bag 02/15/2021 11:27 AM EDT Restarted 02/15/2021 8:15 AM EDT New Bag 02/15/2021 7:30 AM EDT 1,000 mLs 100 mL/hr lamoTRIgine (LaMICtal) tablet 50 mg 50 mg, Oral, 2 TIMES DAILY, First dose on Thu02/15/21 at 2100, Until Discontinued, Routine Given 02/16/2021 8:19 AM EDT 50 mg Given 02/15/2021 10:48 PM EDT 50 mg lidocaine (Lidoderm) 5% patch 3 patch 3 patch, Transdermal, EVERY 24 HOURS, First dose on 02/16/21 at 1230, Until Discontinued, Apply patch(es) for 12 hours, and then remove for 12 hours., Routine Patch Applied 02/16/2021 12:07 PM EDT 3 patches 19- Surgical Site lidocaine (Lidoderm) topical patch REMOVAL Transdermal, EVERY 24 HOURS, First dose on 02/16/21 at 2345, Until Discontinued, Remove lidocaine 5% patch lidocaine (Xylocaine) 1% (10 mg/mL) injection 3 mg 3 mg (0.3 mL), Subcutaneous, ONCE PRN, 1 dose, Starting on Thu02/15/21 at 0714, Until Thu02/15/21 at 0743, for discomfort with PIV insertion, Day of Surgery (Day of Procedure), Routine Given 02/15/2021 7:43 AM EDT 3 mg lisinopriL (Zestril) tablet 20 mg 20 mg, Oral, DAILY, First dose on 02/16/21 at 0900, Until Discontinued, Hold for systolic blood pressure less than 120 Given 02/16/2021 8:18 AM EDT 20 mg midazolam (pf) (Versed) (1 mg/mL) injection 1 mg 1 mg, Intravenous, EVERY 5 MIN PRN, Starting on Thu02/15/21 at 0714, Until Thu02/15/21 at 1423, Other, Sedation or prior to injection of local anesthetic, Hold for delirium/agitation. (Maximum dose 5 mg)., Day of Surgery (Day of Procedure), Routine Given 02/15/2021 8:22 AM EDT 1 mg Given 02/15/2021 8:20 AM EDT 1 mg Given 02/15/2021 8:17 AM EDT 1 mg ondansetron (pf) (Zofran) (2 mg/mL) injection 4 mg 4 mg, Intravenous, EVERY 8 HOURS PRN, Starting on Thu02/15/21 at 1301, Until 02/16/21 at 1703, Nausea, May repeat times one in 30 minutes if ineffective. If multiple antiemetics are ordered, use ondansetron first, Recovery (Recovery-Hospital Unit) ondansetron (Zofran) tablet 4 mg 4 mg, Oral, EVERY 8 HOURS PRN, Starting on Thu02/15/21 at 1301, Until 02/16/21 at 1703, Nausea, Vomiting, If multiple antiemetics are ordered, use ondansetron first. PO Preferred. If patient unable to take PO, may give IV if ordered. May repeat times one in 45 minutes if ineffective., Recovery (Recovery-Hospital Unit), Routine oxyCODONE (Roxicodone) tablet 5-15 mg 5-15 mg, Oral, EVERY 4 HOURS PRN, Starting on Thu02/15/21 at 1428, Until 02/16/21 at 1703, Pain, Give 5 mg for mild pain (1-3), 10 mg for moderate pain (4-6) or 15 mg for severe pain (7-10) May give an additional 5 mg in 30 minutes ONCE if pain not relieved., Routine Given 02/16/2021 12:07 PM EDT 15 mg Given 02/16/2021 8:18 AM EDT 15 mg Given 02/15/2021 11:20 PM EDT 15 mg pantoprazole EC (Protonix) tablet 40 mg 40 mg, Oral, DAILY, First dose on Thu02/15/21 at 1700, Until Discontinued Given 02/16/2021 8:17 AM EDT 40 mg Given 02/15/2021 4:28 PM EDT 40 mg polyethylene glycoL (Miralax) packet 17 g 17 g, Oral, 2 TIMES DAILY, First dose on Thu02/15/21 at 2100, Until Discontinued, Routine Given 02/16/2021 8:20 AM EDT 17 g Given 02/15/2021 10:44 PM EDT 17 g rivaroxaban (Xarelto) tablet 10 mg 10 mg, Oral, EVERY EVENING, First dose on 02/16/21 at 1230, Until Discontinued, Start 24 hours after arriving at PACU, Routine, Restricted anticoagulant, choose the most appropriate response: Approved indication of hip/knee replacement DVT prophylaxis Given 02/16/2021 12:45 PM EDT 10 mg senna-docusate (Pericolace) 8.6-50 mg per tablet 2 tablet 2 tablet, Oral, 2 TIMES DAILY, First dose on Thu02/15/21 at 2100, Until Discontinued, Routine Given 02/16/2021 8:18 AM EDT 2 tablets Given 02/15/2021 10:45 PM EDT 2 tablets sodium chloride 0.9 % (flush) (BD PosiFlush Normal Saline 0.9) flush 5 mL 5 mL, Intravenous, 2 TIMES DAILY, First dose on Thu02/15/21 at 1330, Until Discontinued, Recovery (Recovery-Hospital Unit), Routine Given 02/16/2021 9:00 AM EDT 5 mLs Given 02/15/2021 10:49 PM EDT 5 mLs Given 02/15/2021 1:30 PM EDT 5 mLs sodium chloride 0.9% infusion 1,000 mL, at 100 mL/hr, Intravenous, CONTINUOUS, Starting on Thu02/15/21 at 1330, Until 02/16/21 at 1703, Recovery (Recovery-Hospital Unit) Continued Bag 02/15/2021 1:30 PM EDT 1,000 mLs 100 mL/hr documented in this encounter Active and Recently Administered Medications Times are shown in EDT. Scheduled Medication Order 02/14/2021 02/15/2021 02/16/2021 acetaminophen (Tylenol) tablet 1,000 mg (COMPLETED) 1,000 mg, Oral, ONCE, 1 dose, On Thu02/15/21 at 0730, Administer on arrival in Same Day Program, Day of Surgery (Day of Procedure), Routine 0740 (Given - Provider: Rosa Maria Lucas RN) acetaminophen (Tylenol) tablet 1,000 mg (CANCELED) 1,000 mg, Oral, EVERY 8 HOURS SCHEDULED, First dose on Thu02/15/21 at 1515, Until Discontinued, Maximum dose of acetaminophen is 4000 mg from all sources in 24 hours. When ordered for pain, acetaminophen should be given even when other ordered pain medications are indicated. , Routine 1444 (Given - Provider: Janeth Saravia RN)2244 (Given - Provider: Laina Vela LPN) 0538 (Given - Provider: Laina Vela LPN) acetaminophen (Tylenol) tablet 1,000 mg 1,000 mg, Oral, EVERY 6 HOURS SCHEDULED, First dose (after last modification) on 02/16/21 at 1230, Until Discontinued, Maximum dose of acetaminophen is 4000 mg from all sources in 24 hours. When ordered for pain, acetaminophen should be given even when other ordered pain medications are indicated. , Routine 1207 (Given - Provid er: Janeth Saravia RN) atorvastatin (Lipitor) tablet 40 mg 40 mg, Oral, NIGHTLY, First dose on Thu02/15/21 at 2100, Until Discontinued, Routine 2246 (Given - Provider: Laina Vela LPN) budesonide-formoteroL (Sybmicort) 80-4.5 mcg/actuation inhaler 2 Inhalation 2 .Inhalation , Inhalation, 2 TIMES DAILY, First dose on Thu02/15/21 at 2100, Until Discontinued, Routine 2100 (Not Given - Provider: Laina Vela LPN - Reason: Medication not available) 0900 (Not Given - Provider: Janeth Saravia RN - Reason: Medication not available) ceFAZolin (Ancef) 2 g in dextrose 5% 100 mL (2 x 1 g/50 mL premix bags) infusion (CANCELED) 2 g, Intravenous, EVERY 8 HOURS, 3 doses, First dose on Thu02/15/21 at 1330, Last dose on Thu02/16/21 at 0530, Administer over 30 Minutes, Adjust to 4 hours from intraoperative dose. * Beta-lactam based antibiotics (eg. Ampicillin, Cefazolin, Aztreonam) should be administered within 4 hours of the preceding intraoperative dose. * Vancomycin, Fluoroquinolones, Clindamycin, Gentamicin, and Metronidazole should be administered within 8 hours of the preceding intraoperative dose. Total dose of ceFAZolin 2 grams, administered using two ceFAZolin 1g/50mL IV bags. Infuse each ceFAZolin 1g/50mL bag over 30 minutes (100 ml/hr) for total infusion time of 60 minutes. On the MAR, document administration of first bag using New Bag (1 of 2) MAR action for dose of 1g. On the MAR, document administration of second bag using Next Bag (2 of 2) MAR action for dose of 1g (resulting in total dose of 2g)., Recovery (Recovery-Hospital Unit), Indication for (Active or Suspected): Prophylaxis 1305 (New Bag (1 of 2) - Provider: Vaishali Bolden RN)1335 (Next Bag (2 of 2) - Provider: Vaishali Bolden RN)1405 (Stopped - Provider: Janeth Saravia RN)2249 (New Bag (1 of 2) - Provider: Laina Vela LPN) 0013 (Next Bag (2 of 2) - Provider: Laina Vela LPN)0043 (Stopped - Provider: Laina Vela LPN)0700 (Not Given - Provider: Tori Richey RN - Reason: Medication Discontinued) ceFAZolin (Ancef) 2 g in dextrose 5% 100 mL infusion (COMPLETED) 2 g, Intravenous, EVERY 8 HOURS, 1 dose, First dose on Thu02/16/21 at 1130, Administer over 30 Minutes, Indication for (Active or Suspected): Skin/Skin Structure 1051 (New Bag - Provider: Tori Richey RN)1121 (Stopped - Provider: Janeth Saravia RN) ceFAZolin (Ancef) 3 g in dextrose 5% 109 mL infusion (COMPLETED) 3 g, Intravenous, EVERY 3 HOURS, 1 dose, First dose on Thu02/15/21 at 0745, Administer over 30 Minutes, Redose after 3 hours., Intra-Operative (Intra-Procedure), Indication for (Active or Suspected): Prophylaxis 0837 (Given - Provider: Nic Rojo CRNA) celecoxib (CeleBREX) capsule 200 mg 200 mg, Oral, 2 TIMES DAILY, First dose on Thu02/15/21 at 2100, Until Discontinued, Routine 2247 (Given - Provider: Laina Vela LPN) 0818 (Given - Provider: Janeth Saravia RN) celecoxib (CeleBREX) capsule 400 mg (COMPLETED) 400 mg, Oral, ONCE, 1 dose, On Thu02/15/21 at 0730, Administer on arrival to Same Day Program, Day of Surgery (Day of Procedure), Routine 0741 (Given - Provider: Rosa Maria Lucas RN) citalopram (CeleXA) tablet 30 mg 30 mg, Oral, EVERY MORNING, First dose on Thu02/16/21 at 0900, Until Discontinued, Routine 0819 (Given - Provid er: Janeth Saravia RN) dexamethasone (Decadron) tablet 4 mg (COMPLETED) 4 mg, Oral, DAILY, 2 doses, First dose on Thu02/15/21 at 1700, Last dose on Thu02/16/21 at 0900, Routine 1647 (Given - Provider: Janeth Saravia RN) 0820 (Given - Provider: Janeth Saravia RN) gabapentin (Neurontin) capsule 300 mg(Linked Group 1) 300 mg, Oral, NIGHTLY, First dose on Thu02/17/21 at 2100, Until Discontinued, Routine gabapentin (Neurontin) capsule 600 mg(Linked Group 1) 600 mg, Oral, NIGHTLY, 2 doses, First dose on Thu02/15/21 at 2100, Last dose on Thu02/16/21 at 2100, Routine 2247 (Given - Provider: Laina Vela LPN) hydroCHLOROthiazide (Hydrodiuril) tablet 25 mg 25 mg, Oral, DAILY, First dose on Thu02/16/21 at 0900, Until Discontinued, Hold for systolic blood pressure less than 130, Routine 0819 (Given - Provid er: Janeth Saravia RN) insulin lispro (HumaLOG;Admelog) (100 unit/mL) subcutaneous injection vial 1-4 Units(Linked Group 2) 1-4 Units, Subcutaneous, EVERY 4 HOURS SCHEDULED, First dose on Thu02/16/21 at 1200, Until Discontinued, CORRECTION BOLUS [1-4 Units] Sensitive Sliding Scale (BG in mg/dL): Correction factor 40 (1 unit of insulin is expected to drop the glucose 40 mg/dL) BG 160 - 200 Give 1 unit BG 201 - 240 Give 2 units BG 241 - 280 Give 3 units BG greater than 280, give 4 units and recheck BG in 2 hours. - If recheck BG is LESS than 280, give no insulin and resume schedule - If recheck BG is GREATER than 280, give 4 units and repeat BG in 2 hours (no more than 3 times) & call for new insulin orders. DO NOT hold if NPO, unless specifically directed to do so by written order. Per Blood Glucose Monitoring Policy, re-check a BG of > 240 mg/dL in 2 hours., Routine 1200 (Not Given - Provider: Janeth Saravia RN - Reason: Order parameters not met) lamoTRIgine (LaMICtal) tablet 50 mg 50 mg, Oral, 2 TIMES DAILY, First dose on Thu02/15/21 at 2100, Until Discontinued, Routine 2248 (Given - Provider: Laina Vela LPN) 0819 (Given - Provider: Janeth Saravia RN) lidocaine (Lidoderm) 5% patch 3 patch(Linked Group 3) 3 patch, Transdermal, EVERY 24 HOURS, First dose on Thu02/16/21 at 1230, Until Discontinued, Apply patch(es) for 12 hours, and then remove for 12 hours., Routine 1207 (Patch Applied - Provider: Janeth Saravia RN) lidocaine (Lidoderm) topical patch REMOVAL(Linked Group 3) Transdermal, EVERY 24 HOURS, First dose on Thu02/16/21 at 2345, Until Discontinued, Remove lidocaine 5% patch lisinopriL (Zestril) tablet 20 mg 20 mg, Oral, DAILY, First dose on Thu02/16/21 at 0900, Until Discontinued, Hold for systolic blood pressure less than 120 0818 (Given - Provid er: Janeth Saravia RN) pantoprazole EC (Protonix) tablet 40 mg 40 mg, Oral, DAILY, First dose on Thu02/15/21 at 1700, Until Discontinued 1628 (Given - Provider: Janeth Saravia RN) 0817 (Given - Provider: Janeth Saravia RN) polyethylene glycoL (Miralax) packet 17 g 17 g, Oral, 2 TIMES DAILY, First dose on Thu02/15/21 at 2100, Until Discontinued, Routine 2244 (Given - Provider: Laina Vela LPN) 0820 (Given - Provider: Janeth Saravia RN) rivaroxaban (Xarelto) tablet 10 mg 10 mg, Oral, EVERY EVENING, First dose on Thu02/16/21 at 1230, Until Discontinued, Start 24 hours after arriving at PACU, Routine, Restricted anticoagulant, choose the most appropriate response: Approved indication of hip/knee replacement DVT prophylaxis 1245 (Given - Provid er: Janeth Saravia RN) senna-docusate (Pericolace) 8.6-50 mg per tablet 2 tablet 2 tablet, Oral, 2 TIMES DAILY, First dose on Thu02/15/21 at 2100, Until Discontinued, Routine 2245 (Given - Provider: Laina Vela LPN) 0818 (Given - Provider: Janeth Saravia RN) sodium chloride 0.9 % (flush) (BD PosiFlush Normal Saline 0.9) flush 5 mL 5 mL, Intravenous, 2 TIMES DAILY, First dose on Thu02/15/21 at 1330, Until Discontinued, Recovery (Recovery-Hospital Unit), Routine 1330 (Given - Provider: Janeth Saravia RN)2249 (Given - Provider: Laina Vela LPN) 0900 (Given - Provider: Janeth Saravia RN) tranexamic acid (Cyklokapron) 2,069 mg in sodium chloride 0.9% 120.69 mL infusion (COMPLETED) 2,069 mg (rounded from 2,068.5 mg = 15 mg/kg/dose ? 137.9 kg), Intravenous, ONCE, 1 dose, On Thu02/15/21 at 0730, Administer over 30 Minutes, Day of Surgery (Day of Procedure) 0837 (New Bag - Provider: Nic Rojo CRNA) Continuous Medication Order 02/14/2021 02/15/2021 02/16/2021 lactated ringers infusion (CANCELED) 1,000 mL, at 100 mL/hr, Intravenous, CONTINUOUS, Starting on Thu02/15/21 at 0730, Until Thu02/15/21 at 1423, Day of Surgery (Day of Procedure) 0730 (New Bag - Provider: Rosa Maria Lucas RN)0814 (Paused - Provider: Nic Rojo CRNA - Comment: Switch to gravity)0815 (Restarted - Provider: Nic Rojo CRNA)0915 (Anesthesia Volume Adjustment - Provider: Nic Rojo CRNA)1117 (Anesthesia Volume Adjustment - Provider: Nic Rojo CRNA)1127 (New Bag - Provider: Nic Rojo CRNA) sodium chloride 0.9% infusion 1,000 mL, at 100 mL/hr, Intravenous, CONTINUOUS, Starting on Thu02/15/21 at 1330, Until 02/16/21 at 1703, Recovery (Recovery-Hospital Unit) 1330 (Continued Bag - Provid er: Janeth Saravia RN) PRN Medication Order 02/14/2021 02/15/2021 02/16/2021 bisacodyL (Dulcolax) suppository 10 mg 10 mg, Rectal, DAILY PRN, Starting on Thu02/15/21 at 1428, Until 02/16/21 at 1703, Constipation, Administer if needed per patient's routine or if no bowel movement within 48 hours to achieve: (1) One bowel movement every 48 hours, AND (2) without straining. If multiple PRN bowel medications ordered, start with lactulose, then oral bisacodyl, then bisacodyl suppository. Multiple medications may be given concomitantly for constipation., Routine bisacodyl EC (Dulcolax) tablet 10 mg 10 mg, Oral, 2 TIMES DAILY PRN, Starting on Thu02/15/21 at 1428, Until 02/16/21 at 1703, Constipation, DO NOT CRUSH OR OPEN Administer if needed per patient's routine or if no bowel movement within 48 hours to achieve: (1) One bowel movement every 48 hours, AND (2) without straining. If multiple PRN bowel medications ordered, start with lactulose, then oral bisacodyl, then bisacodyl suppository. Multiple medications may be given concomitantly for constipation., Routine BUpivacaine (pf) (Marcaine) (2.5 mg/mL) 0.25% injection (CANCELED) ONCE PRN, Starting on Thu02/15/21 at 0902, Until 02/16/21 at 1703, Intra-Operative (Intra-Procedure), Routine 0902 (Given - Provider: Al Mendez MD - Comment: At skin incision)1100 (Given - Provider: Al Mendez MD - Comment: Mixture contains 50ml 0.25% bupivacaine, 30mg toradol, 50mcg clonidine. Total mixture used.) cloNIDine (pf) (Duraclon) (100 mcg/mL) Epidural injection (CANCELED) ONCE PRN, Starting on Thu02/15/21 at 1100, Until 02/16/21 at 1703, Intra-Operative (Intra-Procedure), Routine 1100 (Given - Provider: Al Mendez MD - Comment: Mixture contains 50ml 0.25% bupivacaine, 30mg toradol, 50mcg clonidine. Total mixture used.) dextrose 10% infusion(Linked Group 4) 250 mL, at 1,000 mL/hr, Intravenous, EVERY 30 MIN PRN, Starting on 02/16/21 at 0951, Until 02/16/21 at 1703, For BG 50-70 mg/dL: Oral treatment preferred: If able to drink, give 120 mL Juice or Regular (not diet) soda OR If NPO, give 15 gram glucose 40% oral gel massaged into buccal mucosa OR if unconscious or uncooperative, give 25 gram (250 mL) Dextrose 10% IV over 15 minutes per protocol OR, if no IV access, 1 mg Glucagon IM. For BG less than 50 mg/dL: Oral treatment preferred: If able to drink, give 240 mL Juice or Regular (not diet) soda OR If NPO, give 30 gram glucose 40% oral gel massaged in buccal mucosa OR if unconscious or uncooperative, give 25 gram (250 mL) Dextrose 10% IV over 15 minutes per protocol OR, if no IV access, 1 mg Glucagon IM. Recheck BG in 30 minutes. May repeat juice/soda, gel, dextrose or glucagon once per episode. For persistent hypoglycemia, consider longer-acting treatment for the duration of the active insulin. fentaNYL (PF) (50 mcg/mL) injection 50 mcg (CANCELED) 50 mcg, Intravenous, EVERY 5 MIN PRN, Starting on Thu02/15/21 at 0714, Until Thu02/15/21 at 1423, Pain, or prior to injection of local anesthetic., Hold for respiratory rate less than 8 breaths per minute. (maximum dose 200 mcg), Day of Surgery (Day of Procedure), Routine 0816 (Given - Provider: Rosa Maria Lucas RN) glucagon (Glucagen) (1 mg/mL) injection solution 1 mg(Linked Group 4) 1 mg, Intramuscular, EVERY 30 MIN PRN, Starting on 02/16/21 at 0951, Until 02/16/21 at 1703, Low blood sugar, For BG 50-70 mg/dL: Oral treatment preferred: If able to drink, give 120 mL Juice or Regular (not diet) soda OR If NPO, give 15 gram glucose 40% oral gel massaged into buccal mucosa OR if unconscious or uncooperative, give 25 gram (250 mL) Dextrose 10% IV over 15 minutes per protocol OR, if no IV access, 1 mg Glucagon IM. For BG less than 50 mg/dL: Oral treatment preferred: If able to drink, give 240 mL Juice or Regular (not diet) soda OR If NPO, give 30 gram glucose 40% oral gel massaged in buccal mucosa OR if unconscious or uncooperative, give 25 gram (250 mL) Dextrose 10% IV over 15 minutes per protocol OR, if no IV access, 1 mg Glucagon IM. Recheck BG in 30 minutes. May repeat juice/soda, gel, dextrose or glucagon once per episode. For persistent hypoglycemia, consider longer-acting treatment for the duration of the active insulin., Routine glucose (GLUTOSE) 40% oral geL(Linked Group 4) 15-30 g, Buccal, EVERY 30 MIN PRN, Starting on 02/16/21 at 0951, Until 02/16/21 at 1703, Low blood sugar, For BG 50-70 mg/dL: Oral treatment preferred: If able to drink, give 120 mL Juice or Regular (not diet) soda OR If NPO, give 15 gram glucose 40% oral gel massaged into buccal mucosa OR if unconscious or uncooperative, give 25 gram (250 mL) Dextrose 10% IV over 15 minutes per protocol OR, if no IV access, 1 mg Glucagon IM. For BG less than 50 mg/dL: Oral treatment preferred: If able to drink, give 240 mL Juice or Regular (not diet) soda OR If NPO, give 30 gram glucose 40% oral gel massaged in buccal mucosa OR if unconscious or uncooperative, give 25 gram (250 mL) Dextrose 10% IV over 15 minutes per protocol OR, if no IV access, 1 mg Glucagon IM. Recheck BG in 30 minutes. May repeat juice/soda, gel, dextrose or glucagon once per episode. For persistent hypoglycemia, consider longer-acting treatment for the duration of the active insulin. 1 tube contains 15 grams of glucose (net weight of tube = 37.5 grams., Routine HYDROmorphone (Dilaudid) (2 mg/mL) multi-dose injection solution 0.4 mg (CANCELED)(Linked Group 5) 0.4 mg, Intravenous, EVERY 10 MIN PRN, Starting on Thu02/15/21 at 1158, Until Thu02/15/21 at 1423, Pain, For Moderate to Severe Pain (6-10 out of 10), Hold for respiratory rate less than 10 per minute. Maximum dose 3 mg over one hour including administrations in the OR. If multiple pain medications are ordered, start with HYDROmorphone or morphine and use fentaNYL for breakthrough pain, PACU Recovery, Routine 1243 (Given - Provider: Carri Urbano, LUIS MANUEL)1258 (Given - Provider: Carri Urbano, LUIS MANUEL)1321 (Given - Provider: Vaishali Bolden RN) ketorolac (Toradol) (15 mg/mL) injection 15 mg 15 mg, Intravenous, EVERY 6 HOURS PRN, Starting on Thu02/15/21 at 1428, Until 02/16/21 at 1703, Pain, Routine 2255 (Given - Provider: Laina Vela LPN) 1038 (Given - Provider: Janeth Saravia RN) ketorolac (Toradol) (30 mg/mL) injection (CANCELED) ONCE PRN, Starting on Thu02/15/21 at 1100, Until 02/16/21 at 1703, Intra-Operative (Intra-Procedure), Routine 1100 (Given - Provider: Al Mendez MD - Comment: Mixture contains 50ml 0.25% bupivacaine, 30mg toradol, 50mcg clonidine. Total mixture used.) lidocaine (Xylocaine) 1% (10 mg/mL) injection 3 mg (COMPLETED) 3 mg (0.3 mL), Subcutaneous, ONCE PRN, 1 dose, Starting on Thu02/15/21 at 0714, Until Thu02/15/21 at 0743, for discomfort with PIV insertion, Day of Surgery (Day of Procedure), Routine 07 (Given - Provider: Rosa Maria Lucas RN) lidocaine (Xylocaine) 1% (10 mg/mL) injection 3 mg 3 mg (0.3 mL), Subcutaneous, ONCE PRN, 1 dose, Starting on Thu02/15/21 at 1301, Until 02/16/21 at 1703, for discomfort with PIV insertion, Recovery (Recovery-Hospital Unit), Routine midazolam (pf) (Versed) (1 mg/mL) injection 1 mg (CANCELED) 1 mg, Intravenous, EVERY 5 MIN PRN, Starting on Thu02/15/21 at 0714, Until Thu02/15/21 at 1423, Other, Sedation or prior to injection of local anesthetic, Hold for delirium/agitation. (Maximum dose 5 mg)., Day of Surgery (Day of Procedure), Routine 0814 (Given - Provider: Rosa Maria Lucas RN)08 (Given - Provider: Rosa Maria Lucas RN)08 (Given - Provider: Rosa Maria Lucas RN)08 (Given - Provider: Rosa Maria Lucas RN) ondansetron (pf) (Zofran) (2 mg/mL) injection 4 mg(Linked Group 6) 4 mg, Intravenous, EVERY 8 HOURS PRN, Starting on Thu02/15/21 at 1301, Until 02/16/21 at 1703, Nausea, May repeat times one in 30 minutes if ineffective. If multiple antiemetics are ordered, use ondansetron first, Recovery (Recovery-Hospital Unit) ondansetron (Zofran) tablet 4 mg(Linked Group 6) 4 mg, Oral, EVERY 8 HOURS PRN, Starting on Thu02/15/21 at 1301, Until 02/16/21 at 1703, Nausea, Vomiting, If multiple antiemetics are ordered, use ondansetron first. PO Preferred. If patient unable to take PO, may give IV if ordered. May repeat times one in 45 minutes if ineffective., Recovery (Recovery-Hospital Unit), Routine oxyCODONE (Roxicodone) tablet 5-15 mg 5-15 mg, Oral, EVERY 4 HOURS PRN, Starting on Thu02/15/21 at 1428, Until 02/16/21 at 1703, Pain, Give 5 mg for mild pain (1-3), 10 mg for moderate pain (4-6) or 15 mg for severe pain (7-10) May give an additional 5 mg in 30 minutes ONCE if pain not relieved., Routine 1444 (Given - Provider: Janeth aSravia RN)1907 (Given - Provider: Rachel Matute LPN)2320 (Given - Provider: Laina Vela LPN) 0818 (Given - Provider: Janeth Saravia RN)1207 (Given - Provider: Janeth Saravia RN) sodium chloride 0.9 % (flush) (BD PosiFlush Normal Saline 0.9) flush 5-20 mL 5-20 mL, Intravenous, EVERY 1 MIN PRN, Starting on Thu02/15/21 at 1301, Until 02/16/21 at 1703, flush, Flush pertains to all indwelling lines. Flush per protocol found in the job aid using the link provided on this medication record., Recovery (Recovery-Hospital Unit), Routine Linked Groups Order Group 1: gabapentin (Neurontin) capsule 600 mgJump to med 600 mg, Oral, NIGHTLY, 2 doses, First dose on Thu02/15/21 at 2100, Last dose on 02/16/21 at 2100, Routine Followed by gabapentin (Neurontin) capsule 300 mgJump to med 300 mg, Oral, NIGHTLY, First dose on Thu02/17/21 at 2100, Until Discontinued, Routine Group 2: POCT Fingerstick Glucose (CANCELED) Routine, EVERY 4 HOURS, First occurrence on 02/16/21 at 0955, Until Specified, Consider choosing EVERY 4 HOURS as frequency for: - Type 1 Diabetes - At least 24 hours after coming off an insulin drip - At least 24 hours after admission for DKA - Hypoglycemia unawareness - Patients who are otherwise unstable Select the same frequency for the correction bolus insulin order And insulin lispro (HumaLOG;Admelog) (100 unit/mL) subcutaneous injection vial 1-4 UnitsJump to med 1-4 Units, Subcutaneous, EVERY 4 HOURS SCHEDULED, First dose on 02/16/21 at 1200, Until Discontinued, CORRECTION BOLUS [1-4 Units] Sensitive Sliding Scale (BG in mg/dL): Correction factor 40 (1 unit of insulin is expected to drop the glucose 40 mg/dL) BG 160 - 200 Give 1 unit BG 201 - 240 Give 2 units BG 241 - 280 Give 3 units BG greater than 280, give 4 units and recheck BG in 2 hours. - If recheck BG is LESS than 280, give no insulin and resume schedule - If recheck BG is GREATER than 280, give 4 units and repeat BG in 2 hours (no more than 3 times) & call for new insulin orders. DO NOT hold if NPO, unless specifically directed to do so by written order. Per Blood Glucose Monitoring Policy, re-check a BG of > 240 mg/dL in 2 hours., Routine Group 3: lidocaine (Lidoderm) 5% patch 3 patchJump to med 3 patch, Transdermal, EVERY 24 HOURS, First dose on 02/16/21 at 1230, Until Discontinued, Apply patch(es) for 12 hours, and then remove for 12 hours., Routine And lidocaine (Lidoderm) topical patch REMOVALJump to med Transdermal, EVERY 24 HOURS, First dose on 02/16/21 at 2345, Until Discontinued, Remove lidocaine 5% patch Group 4: glucose (GLUTOSE) 40% oral geLJump to med 15-30 g, Buccal, EVERY 30 MIN PRN, Starting on 02/16/21 at 0951, Until 02/16/21 at 1703, Low blood sugar, For BG 50-70 mg/dL: Oral treatment preferred: If able to drink, give 120 mL Juice or Regular (not diet) soda OR If NPO, give 15 gram glucose 40% oral gel massaged into buccal mucosa OR if unconscious or uncooperative, give 25 gram (250 mL) Dextrose 10% IV over 15 minutes per protocol OR, if no IV access, 1 mg Glucagon IM. For BG less than 50 mg/dL: Oral treatment preferred: If able to drink, give 240 mL Juice or Regular (not diet) soda OR If NPO, give 30 gram glucose 40% oral gel massaged in buccal mucosa OR if unconscious or uncooperative, give 25 gram (250 mL) Dextrose 10% IV over 15 minutes per protocol OR, if no IV access, 1 mg Glucagon IM. Recheck BG in 30 minutes. May repeat juice/soda, gel, dextrose or glucagon once per episode. For persistent hypoglycemia, consider longer- acting treatment for the duration of the active insulin. 1 tube contains 15 grams of glucose (net weight of tube = 37.5 grams., Routine Or dextrose 10% infusionJump to med 250 mL, at 1,000 mL/hr, Intravenous, EVERY 30 MIN PRN, Starting on 02/16/21 at 0951, Until 02/16/21 at 1703, For BG 50-70 mg/dL: Oral treatment preferred: If able to drink, give 120 mL Juice or Regular (not diet) soda OR If NPO, give 15 gram glucose 40% oral gel massaged into buccal mucosa OR if unconscious or uncooperative, give 25 gram (250 mL) Dextrose 10% IV over 15 minutes per protocol OR, if no IV access, 1 mg Glucagon IM. For BG less than 50 mg/dL: Oral treatment preferred: If able to drink, give 240 mL Juice or Regular (not diet) soda OR If NPO, give 30 gram glucose 40% oral gel massaged in buccal mucosa OR if unconscious or uncooperative, give 25 gram (250 mL) Dextrose 10% IV over 15 minutes per protocol OR, if no IV access, 1 mg Glucagon IM. Recheck BG in 30 minutes. May repeat juice/soda, gel, dextrose or glucagon once per episode. For persistent hypoglycemia, consider longer-acting treatment for the duration of the active insulin. Or glucagon (Glucagen) (1 mg/mL) injection solution 1 mgJump to med 1 mg, Intramuscular, EVERY 30 MIN PRN, Starting on 02/16/21 at 0951, Until 02/16/21 at 1703, Low blood sugar, For BG 50-70 mg/dL: Oral treatment preferred: If able to drink, give 120 mL Juice or Regular (not diet) soda OR If NPO, give 15 gram glucose 40% oral gel massaged into buccal mucosa OR if unconscious or uncooperative, give 25 gram (250 mL) Dextrose 10% IV over 15 minutes per protocol OR, if no IV access, 1 mg Glucagon IM. For BG less than 50 mg/dL: Oral treatment preferred: If able to drink, give 240 mL Juice or Regular (not diet) soda OR If NPO, give 30 gram glucose 40% oral gel massaged in buccal mucosa OR if unconscious or uncooperative, give 25 gram (250 mL) Dextrose 10% IV over 15 minutes per protocol OR, if no IV access, 1 mg Glucagon IM. Recheck BG in 30 minutes. May repeat juice/soda, gel, dextrose or glucagon once per episode. For persistent hypoglycemia, consider longer-acting treatment for the duration of the active insulin., Routine Group 5: HYDROmorphone (Dilaudid) (2 mg/mL) multi-dose injection solution 0.2 mg (CANCELED) 0.2 mg, Intravenous, EVERY 10 MIN PRN, Starting on Thu02/15/21 at 1158, Until Thu02/15/21 at 1423, Pain, For Mild to Moderate Pain (1-5 out of 10), Hold for respiratory rate less than 10 per minute. Maximum dose 3 mg over one hour including administrations in the OR. If multiple pain medications are ordered, start with HYDROmorphone or morphine and use fentaNYL for breakthrough pain, PACU Recovery, Routine Or HYDROmorphone (Dilaudid) (2 mg/mL) multi-dose injection solution 0.4 mg (CANCELED)Jump to med 0.4 mg, Intravenous, EVERY 10 MIN PRN, Starting on Thu02/15/21 at 1158, Until Thu02/15/21 at 1423, Pain, For Moderate to Severe Pain (6-10 out of 10), Hold for respiratory rate less than 10 per minute. Maximum dose 3 mg over one hour including administrations in the OR. If multiple pain medications are ordered, start with HYDROmorphone or morphine and use fentaNYL for breakthrough pain, PACU Recovery, Routine Group 6: ondansetron (Zofran) tablet 4 mgJump to med 4 mg, Oral, EVERY 8 HOURS PRN, Starting on Thu02/15/21 at 1301, Until 02/16/21 at 1703, Nausea, Vomiting, If multiple antiemetics are ordered, use ondansetron first. PO Preferred. If patient unable to take PO, may give IV if ordered. May repeat times one in 45 minutes if ineffective., Recovery (Recovery-Hospital Unit), Routine Or ondansetron (pf) (Zofran) (2 mg/mL) injection 4 mgJump to med 4 mg, Intravenous, EVERY 8 HOURS PRN, Starting on Thu02/15/21 at 1301, Until 02/16/21 at 1703, Nausea, May repeat times one in 30 minutes if ineffective. If multiple antiemetics are ordered, use ondansetron first, Recovery (Recovery-Hospital Unit) documented in this encounter Care Teams Analysis Internship Relationship Specialty Start Date End Date Bhaskar Morales MD PCP - General Family Medicine 12/18/20 documented as of this encounter
--- OUTSIDE RECORDS SUMMARY | 2024-04-14 10:37 | XMS_ITS | Encounter Summary ---
Author Organization [facility] Address [facility] [place] [address] Care Team Providers Care Finisher Brush Name Role Phone Bhaskar Morales MD Primary Care Provider [phone] Encounter Details Date Type Department Care Team (Late st Contact Info) Description 01/15/2022 12:13 PM EDT - 01/15/2022 11:59 PM EDT Hospital Encounter XRay at [address] [place] [address] Al Mendez MD [facility] [place] [address] Status post revision of total replacement of left knee Discharge Disposition: Home Social History Tobacco Use [...] 05/30/2024 10:00 AM EST Appointment Mammography/[place] [address] Alicia Quinteros MD [facility] DR [place] [address] 08/11/2024 4:15 PM EST Office Visit Dermatology at [place] [address] [place] [address] Jhon Giron MD [address], [place] [address] 11/21/2024 2:00 PM EDT Office Visit Radiation Oncology at [address] [address] Alicia Quinteros MD [facility] DR [place] [address] 10/06/2029 Hospital Encounter [place] [address] Al Mendez MD [facility] DR ORTHOPA[place] [address] Scheduled Procedures Name Priority Associated Diagnoses Date/Ti me @TOTAL KNEE REVISION ARTHROP LASTY, COMPLETE (WRVU 27.11) Instability Right TKA MODIFIER,GMK REVISION KNEE,MEDACTA Instability Right TKA documented as of this encounter Procedures Procedure Name Priority Date/Time Associated Diagnosis Comments XR KNEE STANDING ALIGNMENT AP LAT SKYLINE BILAT Routine 01/15/2022 12:49 PM EDT Status post revision of total replacement of left knee documented in this encounter Results * XR Knee Standing Alignment AP Lat [place] Bilat (01/15/2022 12:49 PM EDT) Anatomical Region Laterality Modality Knee Bilateral Digital Radiogra phy Impressions 01/15/2022 2:11 PM EDT 1. ??Unchanged and Uncomplicated RIGHT total knee arthroplasty 2. ??Unchanged alignment the revised LEFT total knee. Small radiolucencies at posterior femoral condyle, around the femoral component is indeterminate and may represent developing osteolysis or stress shielding. Consider serial follow-up if indicated. Thank you for letting us participate in the care of this patient. ??If you are a health care provider and have any questions regarding this report, please contact the number below. ??For patients who have questions please contact the health health care social worker that requested your imaging first. ? Electronically signed by: Delores Corral MD, [facility] ([phone]), at 01/15/2022 2:11 PM Narrative 01/15/2022 2:11 PM EDT EXAMINATION: XR KNEE STANDING ALIGNMENT AP LAT SKYLINE BILAT CLINICAL HISTORY: Bilat knee evaluation TECHNIQUE: One single AP image was taken with the patient standing. ??The image was taken with a long-view panel and includes from the pelvis to the ankles. Standing AP , lateral and skyline views of both knees COMPARISON: Multiple examinations since 2020. FINDINGS: Exam 1 - Standing alignment The right weight bearing axis is 18 mm medial to midline. The left weight bearing axis is near midline. Exam 2: Bilateral total knee arthroplasties, revised on the LEFT with long tibial and femoral stems. Alignment: The prosthesis is unchanged in alignment. Small radiolucency or bone resorption around the LEFT posterior femoral condyle appears new and is indeterminate for osteolysis. Consider serial follow-up exams. Complication: There is no fracture. Procedure Note Delores Corral MD - 01/15/2022 EXAMINATION: XR KNEE STANDING ALIGNMENT AP LAT SKYLINE BILAT CLINICAL HISTORY: Bilat knee evaluation TECHNIQUE: One single AP image was taken with the patient standing. Theimage was taken with a long-view panel and includes from the pelvis to theankles. Standing AP , lateral and skyline views of both knees COMPARISON: Multiple examinations since 2020. FINDINGS: Exam 1 - Standing alignment The right weight bearing axis is 18 mm medial to midline. The left weight bearing axis is near midline. Exam 2: Bilateral total knee arthroplasties, revised on the LEFT with long tibialand femoral stems. Alignment: The prosthesis is unchanged in alignment. Small radiolucency or bone resorption around the LEFT posterior femoralcondyle appears new and is indeterminate for osteolysis. Consider serialfollow-up exams. Complication: There is no fracture. IMPRESSION 1. Unchanged and Uncomplicated RIGHT total knee arthroplasty 2. Unchanged alignment the revised LEFT total knee. Small radiolucenciesat posterior femoral condyle, around the femoral component is indeterminateand may represent developing osteolysis or stress shielding. Consider serialfollow-up if indicated. Thank you for letting us participate in the care of this patient. If youare a health care provider and have any questions regarding this report,please contact the number below. For patients who have questions please contactthe health health care social worker that requested your imaging first. Electronically signed by: Delores Corral MD, [facility]([phone]), at 01/15/2022 2:11 PM Al Mendez MD IMG DX ORDERABLES documented in this encounter Visit Diagnoses Diagnosis Status post revision of total replacement of left knee documented in this encounter Care Teams Finisher Brush Relationship Specialty Start Date End Date Bhaskar Morales MD PCP - General Family Medicine 12/18/20 documented as of this encounter
--- OUTSIDE RECORDS SUMMARY | 2024-04-14 10:37 | XMS_ITS | Encounter Summary ---
Author Organization [facility] [place] [address] Care Team Providers Care Head Bander And Liner Operator Name Role Phone Bhaskar Morales MD Primary Care Provider [phone] Encounter Details Date Type Department Care Team (Late Contact Info) Description 07/04/2021 Orders [place] [phone] Chanelle Gaming PA [facility] [place] [address] 02/15/2021 S/P revision of left total knee (Dr. Mendez) Social History Tobacco Use Types Packs/Day Years [...] 05/30/2024 10:00 AM EST Appointment Mammography/[place] [phone] Alicia Quinteros MD [facility] [place] [address] 08/11/2024 4:15 PM EST Office Visit Dermatology at [place] [address] [place] [phone] Jhon Giron MD [address], [place] [address] 11/21/2024 2:00 PM EDT Office Visit Radiation Oncology at [address] [address] Alicia Quinteros MD [facility] [place] [address] 10/06/2029 Hospital Encounter [place] [address] Al Mendez MD [facility] [place] [address] Scheduled Procedures Name Priority Associated Diagnoses Date/Ti me @TOTAL KNEE REVISION ARTHROP LASTY, COMPLETE (WRVU 27.11) Instability Right TKA MODIFIER,GMK REVISION KNEE,MEDACTA Instability Right TKA documented as of this encounter Results * XR Knee 1-2 [...] questions please contact the health critical care educator that requested your imaging first. ? Narrative [...] have questions please contactthe health critical care educator that requested your imaging first. Zora Celeste MD IMG DX ORDERABLES documented in this encounter Visit Diagnoses Diagnosis 02/15/2021 S/P revision of left total knee (Dr. Mendez) 02/15/2021 S/P revision of left total knee (Dr. Mendez) documented in this encounter Care Teams Head Bander And Liner Operator Relationship Specialty Start Date End Date Bhaskar Morales MD PCP - General Family Medicine 12/18/20 documented as of this encounter
--- OUTSIDE RECORDS SUMMARY | 2024-04-14 10:37 | XMS_ITS | Encounter Summary ---
Author Organization [facility] Address [facility] [place] [address] Care Team Providers Care Research Associate Name Role Phone Bhaskar Morales MD Primary Care Provider [phone] Encounter Details Date Type Department Care Team (Late st Contact Info) Description 03/26/2022 12:57 PM EDT - 03/26/2022 11:59 PM EDT Hospital Encounter XRay at [address] [place] [address] Al Mendez MD [facility] [place] [address] S/P revision of total knee, left; Status post revision of total replacement of [...] 05/30/2024 10:00 AM EST Appointment Mammography[place] [address] Alicia Quinteros MD [facility] [place] [address] 08/11/2024 4:15 PM EST Office Visit Dermatology at [place] [address] [place] [phone] Jhon Giron MD [address], [place] [address] 11/21/2024 2:00 PM EDT Office Visit Radiation Oncology at [address] [address] Alicia Quinteros MD [facility] [place] [address] 10/06/2029 Hospital Encounter [place] [address] Al Mendez MD [facility] DR [place] [address] Scheduled Procedures Name Priority Associated Diagnoses Date/Ti me @TOTAL KNEE REVISION ARTHROP LASTY, COMPLETE (WRVU 27.11) Instability Right TKA MODIFIER,GMK REVISION KNEE,MEDACTA Instability Right TKA documented as of this encounter Procedures Procedure Name Priority Date/Time Associated Diagnosis Comments XR KNEE AP & LAT LEFT Routine 03/26/2022 1:30 PM EDT Status post revision of total replacement of left knee XR KNEE STANDING ALIGNMENT Routine 03/26/2022 1:30 PM EDT S/P revision of total knee, left documented in this encounter Results * XR Knee Standing Alignment (Generic) (03/26/2022 1:30 PM EDT) Anatomical Region Laterality Modality N/A Digital Radiogra phy Impressions 03/26/2022 4:12 PM EDT 1. ??Left total knee arthroplasty without radiographic complication. 2. ??Standing alignment as above. I have personally reviewed the image(s) and the resident's interpretation and agree with the findings, Anna Dubois MD at 03/26/2022 4:12 PM Thank you for letting us participate in the care of this patient. ??If you are a health care provider and have any questions regarding this report, please contact the number below. ??For patients who have questions please contact the health family day care worker that requested your imaging first. ? Narrative 03/26/2022 4:12 PM EDT EXAMINATION: XR KNEE STANDING ALIGNMENT (GENERIC), XR KNEE 1-2 VIEWS LEFT (GENERIC) CLINICAL HISTORY: S/p left revision TKA, R TKA TECHNIQUE: Separate images of the pelvis, knees and feet were acquired in the AP projection with the patient standing. ??These images were stitched together to form a composite image of the pelvis and legs. AP and lateral views of the left knee COMPARISON: Multiple prior radiographs most recently 01/15/2022 FINDINGS: Status post left total knee revision arthroplasty with extended femoral and tibial stems. Arthroplasty is intact and unchanged in alignment. No evidence of fracture or loosening. No effusion. Survey of right knee shows cemented knee arthroplasty without periprosthetic fracture or joint malalignment. Left ankle osteoarthropathy is partially imaged. The mechanical axis of the left lower extremity projects over the arthroplasty tibial stem. Mechanical axis of the right lower extremity projects approximately 9 mm medial to the arthroplasty tibial stem. Procedure Note Anna Dubois MD - 03/26/2022 EXAMINATION: XR KNEE STANDING ALIGNMENT (GENERIC), XR KNEE 1-2 VIEWSLEFT (GENERIC) CLINICAL HISTORY: S/p left revision TKA, R TKA TECHNIQUE: Separate images of the pelvis, knees and feet were acquired inthe AP projection with the patient standing. These images were stitched togetherto form a composite image of the pelvis and legs. AP and lateral views of the left knee COMPARISON: Multiple prior radiographs most recently 01/15/2022 FINDINGS: Status post left total knee revision arthroplasty with extended femoraland tibial stems. Arthroplasty is intact and unchanged in alignment. Noevidence of fracture or loosening. No effusion. Survey of right knee shows cemented knee arthroplasty withoutperiprosthetic fracture or joint malalignment. Left ankle osteoarthropathy is partiallyimaged. The mechanical axis of the left lower extremity projects over thearthroplasty tibial stem. Mechanical axis of the right lower extremity projectsapproximately 9 mm medial to the arthroplasty tibial stem. IMPRESSION 1. Left total knee arthroplasty without radiographic complication. 2. Standing alignment as above. I have personally reviewed the image(s) and the resident's interpretationand agree with the findings, Anna Dubois MD at 03/26/2022 4:12 PM Thank you for letting us participate in the care of this patient. If youare a health care provider and have any questions regarding this report,please contact the number below. For patients who have questions please contactthe health family day care worker that requested your imaging first. Al Mendez MD IMG DX ORDERABLES * XR Knee 1-2 Views Left (Generic) (03/26/2022 1:30 PM EDT) Anatomical Region Laterality Modality Knee Left Digital Radiogra phy Impressions 03/26/2022 4:12 PM EDT 1. ??Left total knee arthroplasty without radiographic complication. 2. ??Standing alignment as above. I have personally reviewed the image(s) and the resident's interpretation and agree with the findings, Anna Dubois MD at 03/26/2022 4:12 PM Thank you for letting us participate in the care of this patient. ??If you are a health care provider and have any questions regarding this report, please contact the number below. ??For patients who have questions please contact the health family day care worker that requested your imaging first. ? Narrative 03/26/2022 4:12 PM EDT EXAMINATION: XR KNEE STANDING ALIGNMENT (GENERIC), XR KNEE 1-2 VIEWS LEFT (GENERIC) CLINICAL HISTORY: S/p left revision TKA, R TKA TECHNIQUE: Separate images of the pelvis, knees and feet were acquired in the AP projection with the patient standing. ??These images were stitched together to form a composite image of the pelvis and legs. AP and lateral views of the left knee COMPARISON: Multiple prior radiographs most recently 01/15/2022 FINDINGS: Status post left total knee revision arthroplasty with extended femoral and tibial stems. Arthroplasty is intact and unchanged in alignment. No evidence of fracture or loosening. No effusion. Survey of right knee shows cemented knee arthroplasty without periprosthetic fracture or joint malalignment. Left ankle osteoarthropathy is partially imaged. The mechanical axis of the left lower extremity projects over the arthroplasty tibial stem. Mechanical axis of the right lower extremity projects approximately 9 mm medial to the arthroplasty tibial stem. Procedure Note Anna Dubois MD - 03/26/2022 EXAMINATION: XR KNEE STANDING ALIGNMENT (GENERIC), XR KNEE 1-2 VIEWSLEFT (GENERIC) CLINICAL HISTORY: S/p left revision TKA, R TKA TECHNIQUE: Separate images of the pelvis, knees and feet were acquired inthe AP projection with the patient standing. These images were stitched togetherto form a composite image of the pelvis and legs. AP and lateral views of the left knee COMPARISON: Multiple prior radiographs most recently 01/15/2022 FINDINGS: Status post left total knee revision arthroplasty with extended femoraland tibial stems. Arthroplasty is intact and unchanged in alignment. Noevidence of fracture or loosening. No effusion. Survey of right knee shows cemented knee arthroplasty withoutperiprosthetic fracture or joint malalignment. Left ankle osteoarthropathy is partiallyimaged. The mechanical axis of the left lower extremity projects over thearthroplasty tibial stem. Mechanical axis of the right lower extremity projectsapproximately 9 mm medial to the arthroplasty tibial stem. IMPRESSION 1. Left total knee arthroplasty without radiographic complication. 2. Standing alignment as above. I have personally reviewed the image(s) and the resident's interpretationand agree with the findings, Anna Dubois MD at 03/26/2022 4:12 PM Thank you for letting us participate in the care of this patient. If youare a health care provider and have any questions regarding this report,please contact the number below. For patients who have questions please contactthe health family day care worker that requested your imaging first. Al Mendez MD IMG DX ORDERABLES documented in this encounter Visit Diagnoses Diagnosis S/P revision of total knee, left Status post revision of total replacement of left knee documented in this encounter Care Teams Research Associate Relationship Specialty Start Date End Date Bhaskar Morales MD PCP - General Family Medicine 12/18/20 documented as of this encounter
--- OUTSIDE RECORDS SUMMARY | 2024-04-14 10:37 | XMS_ITS | Encounter Summary ---
[place] [address] Care Team Providers Care Underwear Hemmer Name Role Phone Bhaskar Morales MD Primary Care Provider [phone] Encounter Details Date Type Department Care Team (Late Contact Info) Description 03/18/2021 Telephone [place] [phone] Ericka Deras Social History Tobacco Use Types Packs/Day Years [...] 05/30/2024 10:00 AM EST Appointment Mammography/[place] [phone] Alicia Quinteros MD [facility] [place] [address] 08/11/2024 4:15 PM EST Office Visit Dermatology at [address] [place] [address] Jhon Giron MD [address], [place] [address] 11/21/2024 2:00 PM EDT Office Visit Radiation Oncology at [address] [address] Alicia Quinteros MD [facility] DR [place] [address] 10/06/2029 Hospital Encounter [place] [phone] Al Mendez MD [facility] DR ORTHOPAEDIC [place] [address] Scheduled Procedures Name Priority Associated Diagnoses Date/Ti me @TOTAL KNEE REVISION ARTHROP LASTY, COMPLETE (WRVU 27.11) Instability Right TKA MODIFIER,GMK REVISION KNEE,MEDACTA Instability Right TKA documented as of this encounter Visit Diagnoses Not on filedocumented in this encounter Care Teams Underwear Hemmer Relationship Specialty Start Date End Date Bhaskar Morales MD PCP - General Family Medicine 12/18/20 documented as of this encounter
--- OUTSIDE RECORDS SUMMARY | 2024-04-14 10:37 | XMS_ITS | Encounter Summary ---
Author Organization [facility] [place] [address] Care Team Providers Care Last Greaser Name Role Phone Bhaskar Morales MD Primary Care Provider [phone] Reason for Visit * Reason Onset Date Comments Disability Paperwork 03/12/2021 Encounter Details Date Type Department Care Team (Late st Contact Info) Description 03/12/2021 Telephone [place] [phone] Al Mendez MD [facility] [place] [address] Disability Paperwork Social History Tobacco Use Types [...] encounter Miscellaneous Notes * Telephone Encounter - Sophie Mota - 04/15/2021 2:25 PM EST Completed by: Sophie To provider for review/signature: SIGNED Faxed/Mailed/MY PORTAL/Pick-up Date: FAXED 03/13/21 * Telephone Encounter - Sophie Mota - 03/12/2021 4:12 PM EDT Date Received: 03/12/21 Insurance/Disability Company Name: [facility] When patients call in about their disability, please tell them that we do require 7-10 BUSINESS DAYS, from date of receiving, to complete the forms. documented in this encounter Plan of Treatment Upcoming Encounters Date Type Department Care Team (Late st Contact Info) Description 05/30/2024 10:00 AM EST Appointment Mammography/[place] [phone] Alicia Quinteros MD [facility] [place] [place] [address] 08/11/2024 4:15 PM EST Office Visit Dermatology at [address] [place] [phone] Jhon Giron MD [address] [place] [address], [place] [address] 11/21/2024 2:00 PM EDT Office Visit Radiation Oncology at [address] [phone] Alicia Quinteros MD [facility] [place] [address] 10/06/2029 Hospital Encounter [place] [address] Al Mendez MD [facility] [place] [address] Scheduled Procedures Name Priority Associated Diagnoses Date/Ti me @TOTAL KNEE REVISION ARTHROP LASTY, COMPLETE (WRVU 27.11) Instability Right TKA MODIFIER,GMK REVISION KNEE,MEDACTA Instability Right TKA documented as of this encounter Visit Diagnoses Not on filedocumented in this encounter Care Teams Last Greaser Relationship Specialty Start Date End Date Bhaskar Morales MD PCP - General Family Medicine 12/18/20 documented as of this encounter
--- OUTSIDE RECORDS SUMMARY | 2024-04-14 10:37 | XMS_ITS | Encounter Summary ---
Author Organization [facility] [place] [address] Care Team Providers Care Pole Setter Name Role Phone Bhaskar Morales MD Primary Care Provider [phone] Reason for Visit * Reason Onset Date Comments Appointment 07/03/2021 Encounter Details Date Type Department Care Team (Late st Contact Info) Description 07/03/2021 [place] [phone] Al Rodriguez MD [facility] [place] [address] Appointment Social History Tobacco Use Types Packs/Day Years [...] encounter Miscellaneous Notes * Telephone Encounter - Noemí Muhammad - 07/03/2021 1:53 PM EST L/M #1 TO SCHEDULE F/U IN [facility] FOR (PLEASE SCHEDULE FROM RECALL): XR 02/15/21 LEFT TKA REV NEW PAIN & NUMBNESS W/OUT NEW INJURY documented in this encounter Plan of Treatment Upcoming Encounters Date Type Department Care Team (Late st Contact Info) Description 05/30/2024 10:00 AM EST Appointment Mammography/[place] [address] Alicia Quinteros MD [facility] [place] [address] 08/11/2024 4:15 PM EST Office Visit Dermatology at [place] [address] [place] [address] Jhon Giron MD [address], [place] [address] 11/21/2024 2:00 PM EDT Office Visit Radiation Oncology at [address] [address] Alicia Quinteros MD [facility] [place] [address] 10/06/2029 Hospital Encounter [place] [address] Al Rodriguez MD [facility] [place] [address] Scheduled Procedures Name Priority Associated Diagnoses Date/Ti me @TOTAL KNEE REVISION ARTHROP LASTY, COMPLETE (WRVU 27.11) Instability Right TKA MODIFIER,GMK REVISION KNEE,MEDACTA Instability Right TKA documented as of this encounter Visit Diagnoses Not on filedocumented in this encounter Care Teams Pole Setter Relationship Specialty Start Date End Date Bhaskar Morales MD PCP - General Family Medicine 12/18/20 documented as of this encounter
--- OUTSIDE RECORDS SUMMARY | 2024-04-14 10:37 | XMS_ITS | Encounter Summary ---
[place] [address] Care Team Providers Care Sap Manager Name Role Phone Bhaskar Morales MD Primary Care Provider [phone] Encounter Details Date Type Department Care Team (Late st Contact Info) Description 02/18/2021 [place] [address] Jesus Oden DO [facility] [place] [address] Social History Tobacco Use Types Packs/Day Years [...] as of this encounter Progress Notes * Jesus Oden - 02/18/2021 3:42 PM EDT Regional Anesthesia Post-Procedure Assessment Spoke to patient via telephone. Peripheral nerve block resolved appropriately. No residual weakness/numbness/decreased sensation. No sign of infection at injection site. Tolerating POs appropriately.Patient very satisfied with nerve block. Jesus Oden DO 02/18/21 3:42 PM documented in this encounter Plan of Treatment Upcoming Encounters Date Type Department Care Team (Late st Contact Info) Description 05/30/2024 10:00 AM EST Appointment Mammography/[place] [address] Alicia Quinteros MD [facility] [place] [address] 08/11/2024 4:15 PM EST Office Visit Dermatology at [place] [address] [place] [address] Jhon Giron MD [address], [place] [address] 11/21/2024 2:00 PM EDT Office Visit Radiation Oncology at [address] [address] Alicia Quinteros MD [facility] [place] [address] 10/06/2029 Hospital Encounter [place] [address] Al Mendez MD [facility] [place] [address] Scheduled Procedures Name Priority Associated Diagnoses Date/Ti me @TOTAL KNEE REVISION ARTHROP LASTY, COMPLETE (WRVU 27.11) Instability Right TKA MODIFIER,GMK REVISION KNEE,MEDACTA Instability Right TKA documented as of this encounter Visit Diagnoses Not on filedocumented in this encounter Care Teams Sap Manager Relationship Specialty Start Date End Date Bhaskar Morales MD PCP - General Family Medicine 12/18/20 documented as of this encounter
--- OUTSIDE RECORDS SUMMARY | 2024-04-14 10:37 | XMS_ITS | Encounter Summary ---
Author Organization [facility] [place] [address] Care Team Providers Care Planning Analyst Name Role Phone Bhaskar Morales MD Primary Care Provider [phone] Reason for Referral * Physical Therapy (Routine) - Closed Specialty Diagnoses / Procedures Referred By Agus t Referred To Contact Diagnoses S/P revision of total knee, left Chanelle Gaming PA [facility] [place] [address] Referral ID Status Reason Start Date Expiration Date V isits Requested Visits Authorized [id number] Closed Evaluate and Treat Non PCP 07/10/2021 01/06/2022 1 1 Reason for Visit * Reason Comments Follow-up s/p L TKA Rev DOS 03/28 NEW PAIN & NUMBNESS W/OUT NEW INJURY Encounter Details Date Type Department Care Team (Late st Contact Info) Description 07/10/2021 11:30 AM EST Office [place] [address] Al Mendez MD [facility] [place] [address] S/P revision of total knee, left Social [...] Sign Reading Time Taken Comments Blood Pressure 122/61 07/10/2021 11:26 AM EST Pulse 102 07/10/2021 11:26 AM EST Temperature - - Respiratory Rate - - Oxygen Saturation - - Inhaled Oxygen Concentration - - Weight 125.2 kg (276 lb) 07/10/2021 11:26 AM EST Height 154.9 cm (5' 0.98) 07/10/2021 11:[address] Body Mass Index 52.18 07/10/2021 11:26 AM EST documented in this encounter Progress Notes * Chanelle Gaming PA - 07/10/2021 11:30 AM EST Images from the original note were not included. Department of Orthopaedics Division of Adult Joint Reconstructive Surgery CHIEF COMPLAINT: Chief Complaint Patient presents with ??? Follow-up s/p L TKA Rev DOS 02/15/21 NEW PAIN & NUMBNESS W/OUT NEW INJURY ARTHROPLASTY HISTORY/PREVIOUS KNEE SURGERY: 1. Left TKA 05/02/15 (Kellen) 2. RIGHT TKA 2017 (Kellen) 3. 02/15/21 (Andrea) LEFT TKA revision Quin Santana was referred from Zora Celeste MD [facility] [place] [address] I.D.: Quin Santana is a 55 y.o. year old female being seen today to discuss right knee pain. She points to patella tendon. This is chronic however can have spikes in pain with movements. She also notes numbness in the medial knee with radiation proximal to distal third of the upper extremity. She will also note pain over the distal IT band. No fevers, chills, drenching sweats. QUESTIONNAIRE RESPONSES: General Health, Prior Treatments, PreExisting [...] Household Income - # People Supported - [place], , - Race - Health Literacy - Currently working - Current job situation - [employer] Response 07/10/2021 KOOS JR Scores 63.78 Spine [facility] Response 07/10/2021 KOOS JR Scores 63.78 ALLERGIES Allergies Allergen Reactions ??? Hymenoptera Allergenic Extract Anaphylaxis Stinging insects ??? Venom-Honey Bee Other reaction(s): Anaphylaxsis ??? Insect Venom ??? Lactose ??? Levonorgestrel-Ethinyl Estrad ??? Penicillins [facility] Penicillin Allergy Risk Assessment 02/06/2021: Low risk penicillin allergy. OK to receive full dose of cefazolin, cefuroxime, or any 3rd or 4th+ generation cephalosporin. PAT [facility] to place Allergy referral for formal penicillin allergy evaluation. Patient is open to a consult by phone fromallergy clinic. ??? Poison Dalia Extract SOCIAL HISTORY: reports that she has never smoked. She has never used smokeless tobacco. She reports that she does not drink alcohol and does not use drugs. O SIGNIFICANT MEDICAL COMORBIDITIES: Patient Active Problem List [...] VITALS: BP Readings from Last 1 Encounters: 07/10/21 122/61 Pulse Readings from Last 1 Encounters: 07/10/21 (!) 102 Height: 154.9 cm (5' 0.98) Weight: 125.2 kg (276 lb) Body mass index is 52.18 kg/m??. PHYSICAL EXAM: Constitution: Quin Santana sits in the clinic today alert, appears stated age and cooperative. Sheis alert and oriented. Knee Exam: LEFT ?? Knee ROM: Extension:5 degrees from full extension Flexion: 125 Alignment: 0-4 degrees Neutral Stability: A/P Translation <5mm Varus <5mm Valgus <5mm Extension La degrees or less Patella Tracking: Normal Pulses Palpable: Left PT:Yes Left DP:Yes Motor/Sensory: Distal Motor: Normal Distal Sensory: Normal Quadriceps Strength: 4 TTP over pes anserine as well as distal aspect of the IT band. ?? X-RAYS: Multiple radiographic views were obtained at my request and reviewed with the patient. X-rays show a well-placed revision prosthesis with no evidence of fracture, subsidence, loosening, or periprosthetic complication. ?? ASSESSMENT AND PLAN:Ms. Santana is a 55 y.o. year old female with LEFT IT band irritation as well as pes anserine bursitis. We had a long discussion regarding her discomfort. We reviewed her XR images which are benign. Clinically, she has knee ROM which is comparable to when she was last seen in March. She is tender, however, over the pes anserine as well as the distal IT band. I would recommend that she work with PT on this. She will FU in February of 2022 when she will be one year out from her LEFT revision. At this visit we will obtain BILATERAL knee XR images to evaluate both knees. Chanelle Gaming PA-C documented in this encounter Plan of Treatment Upcoming Encounters Date Type Department Care Team (Late st Contact Info) Description 05/30/2024 10:00 AM EST Appointment Mammography/[place] [address] Alicia Quinteros MD [facility] [place] [address] 08/11/2024 4:15 PM EST Office Visit Dermatology at [address] [place] [address] Jhon Giron MD [address] [facility], [place] [address] 11/21/2024 2:00 PM EDT Office Visit Radiation Oncology at [address] [address] Alicia Quinteros MD [facility] [place] [address] 10/06/2029 Hospital Encounter [place] [address] Al Mendez MD [facility] [place] [address] Scheduled Procedures Name Priority Associated Diagnoses Date/Ti me @TOTAL KNEE REVISION ARTHROP LASTY, COMPLETE (WRVU 27.11) Instability Right TKA MODIFIER,GMK REVISION KNEE,MEDACTA Instability Right TKA Scheduled Referrals Name Type Priority Associated Diagnoses Orde r Schedule Referral to Physical Therapy Outpatient Referral Routine S/P revision of total knee, left Ordered: 07/10/2021 documented as of this encounter Visit Diagnoses Diagnosis S/P revision of total knee, left documented in this encounter Care Teams Planning Analyst Relationship Specialty Start Date End Date Bhaskar Morales MD PCP - General Family Medicine 12/18/20 documented as of this encounter
--- OUTSIDE RECORDS SUMMARY | 2024-04-14 10:37 | XMS_ITS | Encounter Summary ---
[place] [address] Care Team Providers Care Travel Manager Name Role Phone Bhaskar Morales MD Primary Care Provider Encounter Details Date Type Department Care Team (Late Contact Info) Description 12/17/2021 Orders [place] [address] Al Mendez MD [facility] [place] [address] Status post revision of total replacement of [...] 05/30/2024 10:00 AM EST Appointment Mammography/[place] [address] Alicia Quinteros MD [facility] [place] [address] 08/11/2024 4:15 PM EST Office Visit Dermatology at [place] [address] [place] [address] Jhon Giron MD [address], [place] [address] 11/21/2024 2:00 PM EDT Office Visit Radiation Oncology at [address] [address] Alicia Quinteros MD [facility] [place] [address] 10/06/2029 Hospital Encounter [place] [address] Al Mendez MD [facility] [place] [address] Scheduled Procedures Name Priority Associated Diagnoses Date/Ti [...] who have questions please contact the health acute care clinical nurse specialist that requested your imaging first. ? Electronically signed by: Anna Dubois MD, [facility] ([phone]), at 03/26/2022 4:12 PM Narrative 03/26/2022 4:12 PM EDT EXAMINATION: XR [...] patients who have questions please contactthe health acute care clinical nurse specialist that requested your imaging first. 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
--- OUTSIDE RECORDS SUMMARY | 2024-04-14 10:37 | XMS_ITS | Encounter Summary ---
Author Organization [facility] [place] [address] Care Team Providers Care Car Supplier Name Role Phone Bhaskar Morales MD Primary Care Provider [phone] Reason for Visit * Reason Comments Annual Exam Encounter Details Date Type Department Care Team (Late st Contact Info) Description 08/01/2021 4:30 PM EST Office Visit Dermatology at [address] [address] Jhon Giron MD [address] [place] [address], [place] [address] Seborrheic keratosis; Nevus Social History Tobacco Use [...] Progress Notes * Jhon Giron MD - 08/01/2021 4:30 PM EST Problem: 1. ??Skin checkup, history of significant sun exposure growing up 2. ??Recent history of of breast CA 3. ??No known personal history of skin cancer, but strong family history of nonmelanoma skin cancerin her father Quin follows up and has been doing well. She just recently had her left knee replaced. She is recovered very well from that. She has not noted any new lesions of concern. She is now 3 years breast cancer free! 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 She has a benign melanotic macule 6 x 8 mm on her right lower lip. She has small benign-appearing melanocytic nevi sparsely scattered on her back. Examination of the soles of the feet and torso basis is also benign. She has not had recurrence of the acrochordons treated last year. Assessment plan: Benign skin examination 1. Patient was reassured about her benign skin examination today 2. No evidence of any cutaneous malignancies 3. Return to clinic in another year for repeat check. 4. Continue sun avoidance precautions CC: Bhaskar Morales MD documented in this encounter Plan of Treatment Upcoming Encounters Date Type Department Care Team (Late st Contact Info) Description 05/30/2024 10:00 AM EST Appointment Mammography/[place] [address] Alicia Quinteros MD [facility] [place] [address] 08/11/2024 4:15 PM EST Office Visit Dermatology at [address] [place] [address] Jhon Giron MD [address] [facility], [place] [address] 11/21/2024 2:00 PM EDT Office Visit Radiation Oncology at [address] [address] Alicia Quinteros MD [facility] [place] [address] 10/06/2029 Hospital Encounter [place] [address] lA Mendez MD [facility] [address] [place] [address] Scheduled Procedures Name Priority Associated Diagnoses Date/Ti me @TOTAL KNEE REVISION ARTHROP LASTY, COMPLETE (WRVU 27.11) Instability Right TKA MODIFIER,GMK REVISION KNEE,MEDACTA Instability Right TKA documented as of this encounter Visit Diagnoses Diagnosis Seborrheic keratosis Other seborrheic keratosis Nevus Benign neoplasm of skin, site unspecified documented in this encounter Care Teams Car Supplier Relationship Specialty Start Date End Date Bhaskar Morales MD PCP - General Family Medicine 12/18/20 documented as of this encounter
--- OUTSIDE RECORDS SUMMARY | 2024-04-14 10:37 | XMS_ITS | Encounter Summary ---
Author Organization [facility] [place] [address] Care Team Providers Care Party Plan Sales Agent Name Role Phone Bhaskar Morales MD Primary Care Provider [phone] Reason for Referral * Physical Therapy (Routine) - Closed Specialty Diagnoses / Procedures Referred By Contac t Referred To Contact Physical Therapy Diagnoses S/P revision of total knee, left Al Mendez MD [facility] [address] [place] [address] Referral ID Status Reason Start Date Expiration Date V isits Requested Visits Authorized [id number] Closed Evaluate and Treat Non PCP 03/18/2021 09/14/2021 20 20 Encounter Details Date Type Department Care Team (Late st Contact Info) Description 03/18/2021 Telephone [place] [address] Ericka Deras Social History Tobacco Use Types [...] encounter Miscellaneous Notes * Telephone Encounter - Luis Rendon - 03/18/2021 3:52 PM EDT PT referral placed and faxed today/ P: [phone] F: [phone] * Addendum Note - Luis Rendon - 03/18/2021 3:50 PM EDTAddended by: LUIS RENDON on: 03/18/2021 03:50 PM Modules accepted: Orders, SmartSet * Telephone Encounter - Ericka Deras - 03/18/2021 3:27 PM EDT Call Center Call Note Provider: JENNIFER DOI/ DOS: 02/15/21 Procedure: TKA Reason for call: J. Physical Therapy needs a referral sent in order to see this patient later this week. No referral found in chart. Chart reviewed to answer questions: Yes Team message being sent to: Arthroplasty Please FAX referral to: [phone] for Physical Therapy. Patient being seen later this week. P: [phone] documented in this encounter Plan of Treatment Upcoming Encounters Date Type Department Care Team (Late st Contact Info) Description 05/30/2024 10:00 AM EST Appointment Mammography/[place] [address] Alicia Quinteros MD [facility] [place] [address] 08/11/2024 4:15 PM EST Office Visit Dermatology at [address] [place] [address] Jhon Giron MD [address], [place] [address] 11/21/2024 2:00 PM EDT Office Visit Radiation Oncology at [address] [address] Alicia Quinteros MD [facility] [place] [address] 10/06/2029 Hospital Encounter [place] [address] Al Mendez MD [facility] [place] [address] Scheduled Procedures Name Priority Associated Diagnoses Date/Ti me @TOTAL KNEE REVISION ARTHROP LASTY, COMPLETE (WRVU 27.11) Instability Right TKA MODIFIER,GMK REVISION KNEE,MEDACTA Instability Right TKA Scheduled Referrals Name Type Priority Associated Diagnoses Orde r Schedule Referral to Physical Therapy Outpatient Referral Routine 02/15/2021 S/P revision of left total knee (Dr. Mendez) Ordered: 03/18/2021 documented as of this encounter Visit Diagnoses Diagnosis 02/15/2021 S/P revision of left total knee (Dr. Mendez) documented in this encounter Care Teams Party Plan Sales Agent Relationship Specialty Start Date End Date Bhaskar Morales MD PCP - General Family Medicine 12/18/20 documented as of this encounter
--- OUTSIDE RECORDS SUMMARY | 2024-04-14 10:38 | XMS_ITS | Encounter Summary ---
[place] [address] Care Team Providers Care Radon Inspector Name Role Phone Bhaskar Morales MD Primary Care Provider [phone] Encounter Details Date Type Department Care Team (Late Contact Info) Description 02/06/2021 10:00 AM EDT [place] [address] Social History Tobacco Use Types Packs/Day Years [...] Upcoming Encounters Date Type Department Care Team ([facility] Contact Info) Description 05/30/2024 10:00 AM EST Appointment Mammography/[place] [address] Alicia Quinteros MD [facility] [place] [address] 08/11/2024 4:15 PM EST Office Visit Dermatology at [address] [place] [address] Jhon Giron MD [address] [place] [address] RD, [place] [address] 11/21/2024 2:00 PM EDT Office Visit Radiation Oncology at [address] [address] Alicia Quinteros MD [facility] [place] [address] 10/06/2029 Hospital Encounter [place] [address] Al Mendez MD [facility] [place] [address] Scheduled Procedures Name Priority Associated Diagnoses Date/Ti me @TOTAL KNEE REVISION ARTHROP LASTY, COMPLETE (WRVU 27.11) Instability Right TKA MODIFIER,GMK REVISION KNEE,MEDACTA Instability Right TKA documented as of this encounter Visit Diagnoses Not on filedocumented in this encounter Care Teams Radon Inspector Relationship Specialty Start Date End Date Bhaskar Morales MD PCP - General Family Medicine 12/18/20 documented as of this encounter
--- OUTSIDE RECORDS SUMMARY | 2024-04-14 10:38 | XMS_ITS | Encounter Summary ---
[place] [address] Care Team Providers Care Speech Language Pathologist Assistant Name Role Phone Avis Honeycutt APRN Primary Care Provider [phone] Reason for Visit * Reason Onset Date Comments Other 10/22/2018 Encounter Details Date Type Department Care Team (Late st Contact Info) Description 10/22/2018 Telephone [place] [phone] Alicia Quinteros MD [facility] [place] [address] Other Social History Tobacco Use Types Packs/Day Years [...] encounter Miscellaneous Notes * Telephone Encounter - Alicia Quinteros MD - 10/22/2018 11:06 AM EDT I called Quin to discuss CT chest result w/her; no answer; left VM w/contact info. documented in this encounter Plan of Treatment Upcoming Encounters Date Type Department Care Team (Late st Contact Info) Description 05/30/2024 10:00 AM EST Appointment Mammography/[place] [address] Alicia Quinteros MD [facility] [place] [address] 08/11/2024 4:15 PM EST Office Visit Dermatology at [place] [address] [place] [address] Jhon Giron MD [address], [place] [address] 11/21/2024 2:00 PM EDT Office Visit Radiation Oncology at [address] [phone] Alicia Quinteros MD [facility] [place] [address] 10/06/2029 Hospital Encounter [place] [address] Al Mendez MD [facility] [place] [address] Scheduled Procedures Name Priority Associated Diagnoses Date/Ti me @TOTAL KNEE REVISION ARTHROP LASTY, COMPLETE (WRVU 27.11) Instability Right TKA MODIFIER,GMK REVISION KNEE,MEDACTA Instability Right TKA documented as of this encounter Visit Diagnoses Diagnosis Malignant neoplasm of upper-outer quadrant of left female breast, unspecified estrogen receptor status documented in this encounter Care Teams Speech Language Pathologist Assistant Relationship Specialty Start Date End Date Avis Honeycutt APRN [address] [place] [address] PCP - General Family Medicine 05/27/18 12/17/20 documented as of this encounter
--- OUTSIDE RECORDS SUMMARY | 2024-04-14 10:38 | XMS_ITS | Encounter Summary ---
Author Organization [facility] Address [facility] [place] [address] Care Team Providers Care Still Worker Helper Name Role Phone Avis Honeycutt LEVON Primary Care Provider [phone] Encounter Details Date Type Department Care Team (Latest Contact Info) Description 07/05/2020 8:00 AM EST Office [place] [address] Dago Paz MD [facility] [place] [address] Thyroid nodule; Subclinical hypothyroidism Social History Tobacco Use Types Packs/Day Years [...] Sign Reading Time Taken Comments Blood Pressure 135/68 07/05/2020 8:17 AM EST Pulse 98 07/05/2020 8:17 AM EST Temperature 37.1 ??C (98.8 ??F) 07/05/2020 8:17 AM ES T Respiratory Rate - - Oxygen Saturation 98% 07/05/2020 8:17 AM EST Inhaled Oxygen Concentration - - Weight 142.8 kg (314 lb 12.8 oz) 07/05/2020 8:17 AM EST Height 154.9 cm (5' 1) 07/05/2020 8:17 AM EST Body Mass Index 59.48 07/05/2020 8:17 AM EST documented in this encounter Progress Notes * Dago Paz MD - 07/05/2020 8:00 AM EST Ms. Quin Santana is an 54 y.o. female who presents for ongoing care of thyroid nodules First saw me for incidentally found thyroid nodules in 2019 That year, I performed biopsy of Right mid-lower pole nodule 1.3 cm. It was isoechoic but had punctate echogenic foci making it TIRADS 4. Path: benign She also had mild subclinical hypothyroidism, but thyroid studies not checked since 2019 Patient Active Problem List Diagnosis ??? Ductal carcinoma in situ (DCIS) of left breast Interval history: She is feeling well today. She is about 2 years out from completing XRT for breast cancer to the left chest and she is in remission. She denies any throat pain or difficulty swallowing. 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 She enjoys watching football, and her favorite team is the [employer]. Current Outpatient Medications: ??? Vitamin D 25 mcg (1,000 unit) Tablet, TK 1 T PO D, Disp: , Rfl: ??? citalopram (CeleXA) 20 mg Tablet, TK 1 AND 1/2 TS PO D, Disp: , Rfl: ??? BLACK COHOSH ORAL, Take by mouth., Disp: , Rfl: ??? ALPRAZolam (XANAX) 0.5 mg Tablet, Take 0.5 mg by mouth daily as needed., Disp: , Rfl: 0 ??? atorvastatin (LIPITOR) 40 mg Tablet, Take 40 mg by mouth daily., Disp: , Rfl: 0 ??? benazepril (LOTENSIN) 10 mg Tablet, Take 20 mg by mouth daily., Disp: , Rfl: 0 ??? cetirizine (ZYRTEC) 10 mg Tablet, Take 10 mg by mouth daily., Disp: , Rfl: 0 ??? EPINEPHrine 0.3 mg/0.3 mL Auto-Injector, Inject 0.3 mg into the muscle as needed., Disp: , Rfl:0 ??? hydroCHLOROthiazide (HYDRODIURIL) 50 mg Tablet, Take 25 mg by mouth daily., Disp: , Rfl: 0 ??? omeprazole (PRILOSEC) 20 mg Capsule, Delayed Release(E.C.), Take 20 mg by mouth daily., Disp: ,Rfl: 0 ??? calcium-vitamin D3 600 mg(1,500mg) -200 unit Tablet, Take 1,200 mg by mouth daily., Disp: , Rfl: ??? multivitamin (THERAGRAN) Tablet, Take 1 tablet by mouth daily., Disp: , Rfl: ??? budesonide-formoterol (SYMBICORT) 80-4.5 mcg/actuation HFA Aerosol Inhaler, Inhale 2 puffs intothe lungs., Disp: , Rfl: ??? fish oil-omega-3 fatty acids 500 mg Capsule, Take 120 mg by mouth., Disp: , Rfl: ??? albuterol 90 mcg/actuation HFA Aerosol Inhaler, Inhale 2 puffs into the lungs every 4 hours as needed for Wheezing. Use with spacer, Disp: , Rfl: has a past medical history of Anxiety, Asthma, Environmental allergies, GERD (gastroesophageal reflux disease), HTN (hypertension), and Hypercholesteremia. Physical Exam: Patient Vitals for the past 24 hrs: Temp Pulse BP SpO2 07/05/20 0817 37.1 ??C (98.8 ??F) 98 135/68 98 % General: no acute distress, pleasant, sitting comfortably Face: not round or red Eyes: no lid lag; normal eye movements Mouth: Wearing mask Neck: no supraclavicular fat pads; trachea midline, no palpable thyroid nodules Respiratory: symmetrical chest expansion, breathing comfortably on room air Musculoskeletal: Moving all 4 extremities normally; normal female musculature Skin: normal temperature/texture Neurological: no tremors; normal gait Psychological: alert/oriented to person, place, time; normal affect; memory intact; normal judgement/insight Radiology Studies: Laboratory Data: 10/12/18 right thyroid FNA pathology: DIAGNOSIS Benign Electronically signed by: ??Long NICOLAS PhD, Jasvir Gleason Verified: ??10/13/2018 ?Pathologist Performed at: ??-[facility] Dept. of Pathology, [place], [place] DISCUSSION Thyroid, right (US-guided FNA): Benign (see note). Cytologic preservation: Adequate. Cellularity (follicular cells): Adequate. Colloid: Present. Macrophages: Inconspicuous. Architectural pattern: Predominantly macrofollicular pattern. Assessment / Plan: 1) Thyroid nodule: right thyroid nodule is DANETTE high suspicion, because it appears more hypoechoic today. It has grown >50% in terms of volume and 2mm or more in at least 2 dimensions,due to all these factors it meets DANETTE rebiopsy criteria. We discussed risks/benefits of this and she wishes to proceed to rebiopsy. This is detailed in a separate note. I will contact her when the path results are available. 2) History of subclinical hypothyroidism: I will discuss with the patient when I speak to her aboutthe pathology results getting her TSH rechecked time statement: not counting procedure time, I spent 20 minutes face to face with the patient and another 10 minutes on chart/image review and documentation for a total of 30 minutes spent on this visit RTC to be determined * Dago Paz MD - 07/05/2020 8:00 AM EST Images from the original note were not included. ENDOCRINOLOGY THYROID ULTRASOUND REPORT Patient:Quin Santana, [id number] Date of exam: 07/05/20 Indication: thyroid nodule Comparison: October 2018 US Performed by: Dago Paz MD Real time images of the thyroid gland were obtained using a Optisense US machine. All measurements are given as Longitudinal/Sagittal x AP x Transverse. Right Lobe: The right lobe measures 39x18 x19 mm with homogenous echotexture In the posterior right midpole, there is a solid hypoechoic nodule measuring 42y60o73 mm. It has punctate echogenic foci. Wide than tall. Ill defined borders. Minimal visible intranodular blood flow.DANETTE high suspicion Isthmus: The isthmus measures 9 mm in heigh Left Lobe: The left lobe measures 54z43n13 mm with homogenous echotexture Lateral neck: I examined the lateral neck regions and saw no morphologically abnormal lymph nodes Impression: Previously biopsied right DANETTE high suspicion thyroid nodule has grown >50% in volume and at least 2 mm in two dimensions so meets DANETTE rebiopsy criteria * Dago Paz MD - 07/05/2020 8:00 AM EST THYROID FNA PROCEDURE NOTE: A timeout was held prior to beginning the procedure at which time I confirmed the patient's name, date of , MRN. I had the patient recite back to me the procedure that we are performing, a thyroid FNA. I confirmed the laterality of the procedure. There were no objections to proceeding. I cleaned the biopsy site with alcohol, and used ethyl chloride spray for patient comfort and to improve hemostasis. I used ultrasound guidance to guide the needle(s) to the biopsy target. Performed by: Dago Paz MD Number of passes: 4 passes, with one to thyroseq Biopsy target: Right 1.5x1.2x1.4 cm thyroid nodule Size needle: 25 g Complications: none The patient tolerated the procedure well. Patient was instructed no heavy lifting (>15 lb) for the remainder of the day. I will follow up on the final pathology report. I will call the patient with the results, I was given permission to leave a voicemail if necessary. Dago Paz MD Novelty Workerpower plant assistant Endocrinology Section [facility] documented in this encounter Plan of Treatment Upcoming Encounters Date Type Department Care Team (Late st Contact Info) Description 05/30/2024 10:00 AM EST Appointment Mammography/[place] [address] Alicia Quinteros MD [facility] DR RADIATION [place] [address] 08/11/2024 4:15 PM EST Office Visit Dermatology at [address] [phone] Jhon Giron MD [address] [place] [address] RD, [place] [address] 11/21/2024 2:00 PM EDT Office Visit Radiation Oncology at [address] [phone] Alicia Quinteros MD [facility] DR RADIATION [place] [address] 10/06/2029 Hospital Encounter [place] [phone] lA Mendez MD [facility] DR ORTHOPAEDIC [place] [address] Scheduled Procedures Name Priority Associated Diagnoses Date/Ti me @TOTAL KNEE REVISION ARTHROP LASTY, COMPLETE (WRVU 27.11) Instability Right TKA MODIFIER,GMK REVISION KNEE,MEDACTA Instability Right TKA documented as of this encounter Procedures Procedure Name Priority Date/Time Associated Diagnosis Comments NON-NIGHT CLERK FINAL REPORT Routine 07/05/2020 8:48 AM EST CYTOPATHOLOGY NON-GYNECOLOGICAL Routine 07/05/2020 8:48 AM EST Thyroid nodule documented in this encounter Results * Non-Supervisor Finishing Room Final Report (07/05/2020 8:48 AM EST) Diagnosis Discussion [id number] ? Location: 5C The signing pathologist has (i) examined the relevant preparation(s) for the specimen(s) and (ii) rendered or confirmed the diagnosis(es). . ? Non-Supervisor Finishing Room Final DIAGNOSIS Benign Electronically signed by: ??[place] NICOLAS, Ava Verified: ??07/06/2020 ?Pathologist Performed at: ??-[facility] Dept. of Pathology, [facility], [place], [place] DISCUSSION Thyroid, right (US-guided FNA): Favor benign (see note). Cytologic preservation: ?? Adequate Cellularity (follicular cells): ?? Adequate, moderate cellularity Colloid: ?? Present, abundant Macrophages: ?? Rare Architectural pattern: ?? Mixed microfollicular and macrofollicular pattern (see note). Note: The vast majority of mixed microfollicular and macrofollicular pattern aspirates are considered to represent benign follicular lesions (adenomas and goiters). There is a low risk of malignancy. Please note that fine needle aspirates cannot definitively exclude the possibility of neoplasm due to the small portion of the lesion sampled. If clinical suspicion for malignancy is high, a repeat biopsy is recommended. Recommend clinical and radiologic correlation and follow-up as clinically indicated. Reference: Kisha BOATENG, ??[employer] ??ES. The [place] System for Reporting Thyroid Cytopathology. [place]: Zhou; 2018. CLINICAL INFORMATION Specimen Source : Thyroid, right (US-guided FNA) Pertinent Clinical Data and Significant Therapy: Thyroid nodule meets rebiopsy criteria Clinical Impression : Solid hypoechoic with punctate echogenic foci Pertinent Radiologic Findings ??: Size: 1.5 x 1.2 x 1.4 cm Echogenicity: Hypo Cystic: No . CLINICAL INFORMATION Calcification: Micro Vascularity: Absent/low Gross Description: Received ??in CytoLyt approximately 30 mL total volume of ?? clear, colorless fluid, with light flecks. Total Preparation: Liquid-Based Prep 1. A separate sample was received for potential molecular testing. 07/06/2020 5:15 PM EST [facility] THYROID STRUCTURE / Unknown 07/05/2020 8:48 AM EST 07/05/2020 8:48 AM EST Dago Paz MD PATHOLOGY/CYTOLOGY ORDERABLES [facility] [place] [address] * Cytopathology Non-Gynecological (07/05/2020 8:48 AM EST) AP Specimen 07/05/2020 8:48 AM EST 07/05/2020 8:48 AM EST Narrative [facility] - 07/05/2020 8:48 AM EST Specimen requisition ordered. ??Separate Pathology report to follow Dago Paz MD PATHOLOGY/CYTOLOGY ORDERABLES [facility] [place] [address] documented in this encounter Visit Diagnoses Diagnosis Thyroid nodule Nontoxic uninodular goiter Subclinical hypothyroidism Other specified acquired hypothyroidism documented in this encounter Care Teams Still Worker Helper Relationship Specialty Start Date End Date Avis Honeycutt, CONSERVATION TECHNICIAN [address] [place] [address] PCP - General Family Medicine 05/27/18 12/17/20 documented as of this encounter
--- OUTSIDE RECORDS SUMMARY | 2024-04-14 10:38 | XMS_ITS | Encounter Summary ---
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 Social History Tobacco Use Types Packs/Day Years [...] Sign Reading Time Taken Comments Blood Pressure 145/89 11/15/2019 9:09 AM EDT Pulse 99 11/15/2019 9:09 AM EDT Temperature 36.2 ??C (97.2 ??F) 11/15/2019 9:09 AM ED T Respiratory Rate 16 11/15/2019 9:09 AM EDT Oxygen Saturation 99% 11/15/2019 9:09 AM EDT Inhaled Oxygen Concentration - - Weight 142.2 kg (313 lb 6.4 oz) 11/15/2019 9:09 AM EDT Height - - Body Mass Index 59.22 04/22/2019 2:27 PM EST documented in this encounter Patient Instructions * Patient Instructions* Alicia Quinteros MD - 11/15/2019 9:00 AM EDT Your exam is without worrisome finding. We will mail you a letter with an appointment for followup with me in 6 months. documented in this encounter Progress Notes * Alicia Quinteros MD - 11/15/2019 9:00 AM EDT Images from the original note were not included. CC: Sched'd fu s/p xrt completion, here today specifically for breast exam following telephone followup yesterday. HPI: 54 y/o f who completed xrt 1 yr., 1.5 mos ago (09/20/18) for breast ca, L, DCIS, gr 2, ER+ID+, 3.2 cm, +necrosis, s/p lumpectomy. ?? 07/27/18 [...] by Dr. Paz, Endocrinology: Assessment / Plan: ?? 1) Thyroid Nodule: we discussed that by TIRADS criteria, for a TIRADS 4 nodule, it is recommended to consider biopsying at size >1.5 cm because overall risk of thyroid cancer is low. However, patient strongly desires to proceed to biopsy. After discussing risks and benefits, patient wishes to proceed. ?? 2) Abnormal thyroid function tests/subclincial hypothyroidism: given [...] of right thyroid nodule returned: benign pathology ?? Recommend 1 year followup with ultrasound ?? Called to discuss but no answer. I had permission from patient to leave message on [employer] and I did so ?? Mild subclinical hypothyroidism, recommend TSH/free T4 recheck in 4-6 months ?? Endo secretaries, please mail patient slips for these labs, and place on list for followup October 2019with US. Thanks! 12/15/18 genetic testing, neg for mutation. 06/10/19 B mmg: Neg 11/11/19 CT chest: Stable small pulmonary nodules. No additional fu rec'd in non- smoker. No acute process. Subjective: Skin w/in irrad'd area same color as other breast. ROM arms around shoulders good. No hand/arm swelling. Energy level good. Past Medical History: Diagnosis Date ??? Anxiety ??? Asthma ??? Environmental allergies ??? GERD (gastroesophageal reflux disease) ??? HTN (hypertension) ??? Hypercholesteremia No collagen vasc dz. Past Surgical History: Procedure Laterality Date ??? BREAST REDUCTION SURGERY Bilateral 1995 ??? KNEE SURGERY Bilateral ??? MAMMO STEREOTACTIC BIOPSY LEFT N/A 05/10/2018 Mammo Stereotactic Biopsy Left 05/10/2018 Jinny Gutierrez MD [facility] RAD MAMMOGRAPHY ??? PRO MASTECTOMY PARTIAL Left 06/24/2018 MASTECTOMY PARTIAL (WRVU 10.13) performed by Frances Zee MD at [facility] MAIN OR Your Medications Accurate as of November 15, 2019 9:18 AM. If you have any questions, ask your nurse or doctor. Continued medications, unchanged Dose Details albuteroL 90 mcg/actuation Hfaa Inhale 2 puffs into the lungs every 4 hours as needed for Wheezing. Use with spacer 2 puff Refills: 0 ALPRAZolam 0.5 mg Tab Commonly known as: Xanax Take 0.5 mg by mouth daily as needed. 0.5 mg Refills: 0 atorvastatin 40 mg Tab Commonly known as: Lipitor Take 40 mg by mouth daily. 40 mg Refills: 0 benazepriL 10 mg Tab Commonly known as: LOTENSIN Take 20 mg by mouth daily. 20 mg Refills: 0 BLACK COHOSH ORAL Take by mouth. Refills: 0 budesonide-formoteroL 80-4.5 mcg/actuation Hfaa Commonly known as: SYMBICORT Inhale 2 puffs into the lungs. 2 puff Refills: 0 calcium-vitamin D3 600 mg(1,500mg) -200 unit Tab Take 1,200 mg by mouth daily. 1,200 mg Refills: 0 cetirizine 10 mg Tab Commonly known as: ZyrTEC Take 10 mg by mouth daily. 10 mg Refills: 0 citalopram 20 mg Tab Commonly known as: CeleXA TK 1 AND 1/2 TS PO D Refills: 0 EPINEPHrine 0.3 mg/0.3 mL Atin Inject 0.3 mg into the muscle as needed. 0.3 mg Refills: 0 fish oil-omega-3 fatty acids 500 mg Cap Take 120 mg by mouth. 120 mg Refills: 0 hydroCHLOROthiazide 50 mg Tab Commonly known as: Hydrodiuril Take 25 mg by mouth daily. 25 mg Refills: 0 multivitamin Tab Commonly known as: [...] is not in acute distress. Comments: BP 145/89 (Patient Position: Sitting) Pulse 99 Temp 36.2 ??C (97.2 ??F) (Temporal) Resp 16 Wt (!) 142.2 kg (313 lb 6.4 oz) SpO2 99% BMI 59.22 kg/m?? HENT: Head: Normocephalic. Eyes: General: No scleral icterus. Right eye: No discharge. Left eye: No discharge. Extraocular Movements: Extraocular movements intact. Conjunctiva/sclera: Conjunctivae normal. Neck: Musculoskeletal: Normal range of motion and neck supple. Pulmonary: Effort: Pulmonary effort is normal. No respiratory distress. Breath sounds: No stridor. Chest: Breasts: Right: No inverted nipple, mass, nipple discharge, skin change or tenderness. Left: Skin change (Mild hyperpigmentation, consistent w/post xrt change.) present. No inverted nipple, mass, nipple discharge or tenderness. Abdominal: General: There is no distension. Palpations: Abdomen is soft. There is no mass. Tenderness: There is no abdominal tenderness. There is no guarding or rebound. Musculoskeletal: Normal range of motion. General: No swelling. Lymphadenopathy: Head: Right side of head: No [...] Judgment: Judgment normal. A: BIMAL. Decision Making/Plan: Rtc 6 mos. documented in this encounter Plan of Treatment Upcoming Encounters Date Type Department Care Team (Late st Contact Info) Description 05/30/2024 10:00 AM EST Appointment Mammography/[place] [address] Alicia Quinteros MD [facility] [place] [address] 08/11/2024 4:15 PM EST Office Visit Dermatology at [place] [address] [place] [phone] Jhon Giron MD [address], [place] [address] 11/21/2024 2:00 PM EDT Office Visit Radiation Oncology at [address] [phone] Alicia Quinteros MD [facility] [place] [address] 10/06/2029 Hospital Encounter [place] [address] Al Mendez MD [facility] [place] [address] Scheduled Procedures Name Priority Associated Diagnoses Date/Ti me @TOTAL KNEE REVISION ARTHROP LASTY, COMPLETE (WRVU 27.11) Instability Right TKA MODIFIER,GMK REVISION KNEE,MEDACTA Instability Right TKA documented as of this encounter Visit Diagnoses Diagnosis 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
--- OUTSIDE RECORDS SUMMARY | 2024-04-14 10:38 | XMS_ITS | Encounter Summary ---
Author Organization [facility] [place] [address] Care Team Providers Care Watch Train Inspector Name Role Phone Avis Honeycutt APRN Primary Care Provider [phone] Encounter Details Date Type Department Care Team (Late Contact Info) Description 06/10/2019 Ancillary Procedure Radiology Library at [facility] [place] [phone] Avis Honeycutt APRN [address] [place] [id number] Social History Tobacco Use Types Packs/Day Years [...] 05/30/2024 10:00 AM EST Appointment Mammography/DXA at [facility] [place] [phone] Alicia Quinteros MD [facility] RADIATION ONCOLOGY [place], [place] [phone] 08/11/2024 4:15 PM EST Office Visit Dermatology at [place] [address] [place] [address] Jhon Giron MD [address], [place] [address] 11/21/2024 2:00 PM EDT Office Visit Radiation Oncology at [address] [phone] Alicia Quinteros MD [facility] [place] [address] 10/06/2029 Hospital Encounter Main [place] [address] Al Mendez MD [facility] [place] [address] Scheduled Procedures Name Priority Associated Diagnoses Date/Ti me @TOTAL KNEE REVISION ARTHROP LASTY, COMPLETE (WRVU 27.11) Instability Right TKA MODIFIER,GMK REVISION KNEE,MEDACTA Instability Right TKA documented as of this encounter Procedures Procedure Name Priority Date/Time Associated Diagnosis Comments FILM LIBRARY STORAGE ONLY MAMMO Routine 06/10/2019 12:00 AM EST documented in this encounter Results * Film Library- Storage Only Mammo (06/10/2019 12:00 AM EST) Narrative [facility] - 06/12/2019 5:23 PM EST This exam is auto-finalizing. It's purpose is for storage only. Avis Honeycutt APRN [place] FILM LIBRARY ORD ERABLES [place], [place] documented in this encounter Visit Diagnoses Not on filedocumented in this encounter Care Teams Watch Train Inspector Relationship Specialty Start Date End Date Avis Honeycutt APRN [address] [place] [address] PCP - General Family Medicine 05/27/18 12/17/20 documented as of this encounter
--- OUTSIDE RECORDS SUMMARY | 2024-04-14 10:38 | XMS_ITS | Encounter Summary ---
Author Organization [facility] [place] [address] Care Team Providers Care Deli Manager Name Role Phone Avis Honeycutt APRN Primary Care Provider [phone] Reason for Visit * Reason Comments Radiation Follow-up Encounter Details Date Type Department Care Team (Late st Contact Info) Description 10/18/2018 8:30 AM EDT Office Visit Radiation Oncology at [address] [address] Alicia Quinteros MD [facility] [place] [address] Malignant neoplasm of upper-outer quadrant of left female breast, unspecified estrogen receptor status Social History Tobacco Use Types Packs/Day Years [...] Sign Reading Time Taken Comments Blood Pressure 146/90 10/18/2018 8:40 AM EDT Pulse 92 10/18/2018 8:40 AM EDT Temperature 36.9 ??C (98.4 ??F) 10/18/2018 8 :40 AM EDT Respiratory Rate 16 10/18/2018 8:40 AM EDT Oxygen Saturation 97% 10/18/2018 8:4 0 AM EDT Inhaled Oxygen Concentration - - Weight 128.2 kg (282 lb 9.6 oz) 10/18/2018 8:40 AM EDT without shoes Height - - Body Mass Index 53.4 10/12/2018 3:01 PM EDT documented in this encounter Patient Instructions * Patient Instructions* Alicia Quinteros MD - 10/18/2018 8:30 AM EDT Your exam shows that you are healing nicely from radiotherapy & there is no evidence of cancer. You may use a straight/regular razor on your left underarm. You may expose the irradiated area to sun, but it is recommended that you apply sunscreen with an SPF of @ least #45 on the irradiated area prior to exposing it to sun. You may swim in chlorinated water. You may expose irradiated area to hot tub water. We will mail you a letter with an appointment for followup in 6 months, @ which time you would be seen by me or by one of the Radiation Oncology Advanced Practice RNs. I can be reached @ [phone] for discussion of the CT chest result. documented in this encounter Progress Notes * Alicia Quinteros MD - 10/18/2018 8:30 AM EDT Images from the original note were not included. CC: Sched'd fu s/p xrt completion. 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 ?? 07/27/18 [...] message on voicemail and I did so ?? Mild subclinical hypothyroidism, recommend TSH/free T4 recheck in 4-6 months ?? Endo secretaries, please mail patient slips for these labs, and place on list for followup October 2019with US. Thanks! ROS: Skin w/in irrad'd area well healed. No pain. ROM arms around shoulders good. No hand/arm swelling. Appetite & energy level good. Past Medical History: Diagnosis Date ??? Anxiety ??? Asthma ??? Environmental allergies ??? GERD (gastroesophageal reflux disease) ??? HTN (hypertension) ??? Hypercholesteremia No collagen vasc dz. Past Surgical History: Procedure Laterality Date ??? BREAST REDUCTION SURGERY Bilateral 1995 ??? KNEE SURGERY Bilateral ??? MAMMO STEREOTACTIC BIOPSY LEFT N/A 05/10/2018 Mammo Stereotactic Biopsy Left 05/10/2018 Jinny Gutierrez MD [facility] RAD MAMMOGRAPHY ??? PRO MASTECTOMY, PARTIAL Left 06/24/2018 MASTECTOMY PARTIAL (WRVU 10.13) performed by Frances Zee MD at [facility] MAIN OR Your Medications Accurate as of 5/13/19 9:01 AM. If you have any questions, ask your nurse or doctor. Continued medications, unchanged Dose Details albuterol 90 mcg/actuation Hfaa Inhale 2 puffs into the lungs every 4 hours as needed for Wheezing. Use with spacer 2 puff Refills: 0 ALPRAZolam 0.5 mg Tab Commonly known as: XANAX Take 0.5 mg by mouth daily as needed. 0.5 mg Refills: 0 atorvastatin 40 mg Tab Commonly known as: LIPITOR Take 40 mg by mouth daily. 40 mg Refills: 0 benazepril 10 mg Tab Commonly known as: LOTENSIN Take 10 mg by mouth daily. 10 mg Refills: 0 BLACK COHOSH ORAL Take by mouth. Refills: 0 budesonide-formoterol 80-4.5 mcg/actuation Hfaa Commonly known as: SYMBICORT Inhale 2 puffs into the lungs. 2 puff Refills: 0 calcium-vitamin D3 600 mg(1,500mg) -200 unit Tab Take 1,200 mg by mouth daily. 1200 mg Refills: 0 cetirizine 10 mg Tab Commonly known as: ZyrTEC Take 10 mg by mouth daily. 10 mg Refills: 0 EPINEPHrine 0.3 mg/0.3 mL Atin Inject 0.3 mg into the muscle as needed. 0.3 mg Refills: 0 fish oil-omega-3 fatty acids 500 mg Cap Take 120 mg by mouth. 120 mg Refills: 0 FLUoxetine 60 mg Tab Take 60 mg by mouth daily. 60 mg Refills: 0 hydroCHLOROthiazide 50 mg Tab Commonly known as: HYDRODIURIL Take 50 mg by mouth daily. 50 mg Refills: 0 multivitamin Tab Commonly known as: THERAGRAN Take 1 tablet by mouth daily. 1 tablet Refills: 0 omeprazole 20 mg Cpdr Commonly known as: PriLOSEC Take 20 mg by mouth daily. 20 mg Refills: 0 Physical Exam Constitutional: She is oriented to person, place, and time. She appears well- developed and well-nourished. No distress. BP 146/90 Pulse 92 Temp 36.9 ??C (98.4 ??F) (Oral) Resp 16 Wt 128.2 kg (282 lb 9.6 oz) Comment: without shoes SpO2 97% BMI 53.40 kg/m?? HENT: Head: Normocephalic and atraumatic. Eyes: Conjunctivae and EOM are normal. Right eye exhibits no discharge. Left eye exhibits no discharge. No scleral icterus. Neck: Normal range of motion. Neck supple. No tracheal deviation present. No thyromegaly present. Pulmonary/Chest: Effort normal. No stridor. No respiratory distress. Right breast exhibits no inverted nipple, no mass, no nipple discharge, no skin change and no tenderness. Left breast exhibits skin change (Mild hyperpigmentation, consistent w/expected post xrt appearance) and tenderness (Mild, @lumpectomy site). Left breast exhibits no inverted nipple, no mass and no nipple discharge. Abdominal: Soft. She exhibits no distension and no mass. There is no tenderness. There is no rebound and no guarding. Musculoskeletal: Normal range of motion. She exhibits no edema, tenderness or deformity. Lymphadenopathy: Head (right side): No submental, no submandibular, no preauricular, no posterior auricular and no occipital adenopathy present. Head (left side): No submental, no submandibular, no preauricular, no posterior auricular and no occipital adenopathy present. She has no cervical adenopathy. She has no axillary adenopathy. Right: No supraclavicular adenopathy present. Left: No supraclavicular adenopathy present. Neurological: She is alert and oriented to person, place, and time. No cranial nerve deficit. She exhibits normal muscle tone. Coordination normal. Skin: Skin is warm and dry. She is not diaphoretic. Psychiatric: She has a normal mood and affect. Her behavior is normal. Judgment and thought contentnormal. A: Healing well post xrt. P: CT chest tomorrow @ [facility] for fu 2 subcm lung nodules. Care of irrad'd skin discussed. Rtc [address] Zee w/dian in December/Jan. FCP 12/15/18, following which she plans to further discuss norman w/Dr. Jeong.. documented in this encounter Plan of Treatment Upcoming Encounters Date Type Department Care Team (Late st Contact Info) Description 05/30/2024 10:00 AM EST Appointment Mammography/[place] [address] Alicia Quinteros MD [facility] [place] [address] 08/11/2024 4:15 PM EST Office Visit Dermatology at [place] [address] [place] [phone] Jhon Giron MD [address], [place] [address] 11/21/2024 2:00 PM EDT Office Visit Radiation Oncology at [address] [phone] Alicia Quinteros MD [facility] [place] [address] 10/06/2029 Hospital Encounter [place] [address] Al Mendez MD [facility] [place] [address] Scheduled Procedures Name Priority Associated Diagnoses Date/Ti me @TOTAL KNEE REVISION ARTHROP LASTY, COMPLETE (WRVU 27.11) Instability Right TKA MODIFIER,GMK REVISION KNEE,MEDACTA Instability Right TKA documented as of this encounter Procedures Procedure Name Priority Date/Time Associated Diagnosis Comments CT SCAN (SCAN) 10/19/2018 12:00 AM EDT LAB SCAN 10/18/2018 12:00 AM EDT documented in this encounter Results * SCAN DOC: CT SCAN (10/19/2018 12:00 AM EDT) Anatomical Region Laterality Modality Other Narrative 10/19/2018 12:00 AM EDT Ordered by an unspecified provider. Scanning Provider MEDIA MGR SCAN EXT O RDR/RSLT * SCAN DOC: LAB (10/18/2018 12:00 AM EDT) Narrative 10/18/2018 12:00 AM EDT Ordered by an unspecified provider. Scanning Provider MEDIA MGR SCAN EXT O RDR/RSLT documented in this encounter Visit Diagnoses Diagnosis Malignant neoplasm of upper-outer quadrant of left female breast, unspecified estrogen receptor status documented in this encounter Care Teams Deli Manager Relationship Specialty Start Date End Date Avis Honeycutt, PHOTOTYPESETTING EQUIPMENT MONITOR [address] [place] [address] PCP - General Family Medicine 05/27/18 12/17/20 documented as of this encounter
--- OUTSIDE RECORDS SUMMARY | 2024-04-14 10:38 | XMS_ITS | Encounter Summary ---
Author Organization [facility] [place] [address] Care Team Providers Care Triage Registered Nurse Name Role Phone Avis Honeycutt APRN Primary Care Provider [phone] Reason for Visit * Reason Comments Radiation Follow-up Encounter Details Date Type Department Care Team (Latest Contact Info) Description 11/14/2019 1:30 PM EDT TH Visit (TeleHealth) Radiation Oncology at [address] [phone] Alicia Quinteros MD [facility] [place] [address] Hormone receptor positive malignant neoplasm of left [...] as of this encounter Progress Notes * Alicia Quinteros MD - 11/14/2019 1:30 PM EDT Images from the original note were not included. Phone followup during Covid-19 pandemic. CC: Sched'd fu s/p xrt completion. 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 ?? 07/27/18 [...] Stereotactic Biopsy Left 05/10/2018 Jinny Gutierrez MD [facility] RAD MAMMOGRAPHY ??? PRO MASTECTOMY PARTIAL Left 06/24/2018 MASTECTOMY PARTIAL (WRVU 10.13) performed by Frances Zee MD at [facility] MAIN OR Your Medications Accurate as of November 14, 2019 1:53 PM. If you have any questions, ask [...] Generic drug: cholecalciferol (Vitamin D3) Refills: 0 zolpidem 5 mg Tab Commonly known as: Ambien TAKE 1 TO 2 TABLETS BY MOUTH NIGHT OF SLEEP STUDY IF NEEDED Refills: 0 A: BIMAL. Decision Making/Plan: There was a miscommunication; we had expected her in clinic today & she thought it was a telephone followup, & so we changed the encounter for today & she will return tomorrow for exam. Patient verbally consents to this telephone visit and understands that this visit may be billed, similar to a clinic office visit. I provided care to the patient today via telephone call. The total time associated with this visit was 20 minutes, including pre phone call chart review, phone call & post phone call charting. documented in this encounter Plan of Treatment Upcoming Encounters Date Type Department Care Team (Late st Contact Info) Description 05/30/2024 10:00 AM EST Appointment Mammography/[place] [address] Alicia Quinteros MD [facility] [address] [place] [address] 08/11/2024 4:15 PM EST Office Visit Dermatology at [place] [address] [place] [address] Jhon Giron MD [address], [place] [address] 11/21/2024 2:00 PM EDT Office Visit Radiation Oncology at [address] [phone] Alicia Quinteros MD [facility] [place] [address] 10/06/2029 Hospital Encounter [place] [phone] Al Mendez MD [facility] ORTHOP[place]EDIC [place] [address] Scheduled Procedures Name Priority Associated Diagnoses Date/Ti me @TOTAL KNEE REVISION ARTHROP LASTY, COMPLETE (WRVU 27.11) Instability Right TKA MODIFIER,GMK REVISION KNEE,MEDACTA Instability Right TKA documented as of this encounter Visit Diagnoses Diagnosis Hormone receptor positive malignant neoplasm of left breast documented in this encounter Care Teams Triage Registered Nurse Relationship Specialty Start Date End Date Avis Honeycutt, LEVON [address] [place] [address] PCP - General Family Medicine 05/27/18 12/17/20 documented as of this encounter
--- OUTSIDE RECORDS SUMMARY | 2024-04-14 10:38 | XMS_ITS | Encounter Summary ---
Author Organization [facility] [place] [address] Care Team Providers Care Collar Band Creaser Name Role Phone Avis Honeycutt APRN Primary Care Provider [phone] Encounter Details Date Type Department Care Team (Late Contact Info) Description 06/12/2020 Ancillary Procedure Radiology Library at [facility] [place] [phone] [facility] [place] [address] Social History Tobacco Use Types Packs/Day Years [...] 05/30/2024 10:00 AM EST Appointment Mammography/DXA at [facility] [place] [phone] Alicia Quinteros MD [facility] [place] [address] 08/11/2024 4:15 PM EST Office Visit Dermatology at [place] [address] [place] [address] Jhon Giron MD [address], [place] [address] 11/21/2024 2:00 PM EDT Office Visit Radiation Oncology at [address] [phone] [facility] [place] [address] 10/06/2029 Hospital Encounter [place] [address] [facility] [address] [place] [address] Scheduled Procedures Name Priority Associated Diagnoses Date/Ti me @TOTAL KNEE REVISION ARTHROP LASTY, COMPLETE (WRVU 27.11) Instability Right TKA MODIFIER,GMK REVISION KNEE,MEDACTA Instability Right TKA documented as of this encounter Procedures Procedure Name Priority Date/Time Associated Diagnosis Comments FILM LIBRARY STORAGE ONLY MAMMO Routine 06/12/2020 12:00 AM EST documented in this encounter Results * Film Library- Storage Only Mammo (06/12/2020 12:00 AM EST) Narrative [facility] - 07/02/2020 1:50 PM EST This exam is auto-finalizing. It's purpose is for storage only. Alicia Quinteros MD G FILM LIBRARY ORD ERABLES [place], [place] documented in this encounter Visit Diagnoses Not on filedocumented in this encounter Care Teams Collar Band Creaser Relationship Specialty Start Date End Date Avis Honeycutt, ORTHOTIC PRACTITIONER [address] [place] [address] PCP - General Family Medicine 05/27/18 12/17/20 documented as of this encounter
--- OUTSIDE RECORDS SUMMARY | 2024-04-14 10:38 | XMS_ITS | Encounter Summary ---
[place] [address] Care Team Providers Care Surgical Services Coordinator Name Role Phone Avis Honeycutt APRN Primary Care Provider [phone] Reason for Visit * Reason Comments Skin Check Encounter Details Date Type Department Care Team (Late st Contact Info) Description 07/30/2020 4:30 PM EST Office Visit Dermatology at [address] [phone] Jhon Giron MD [address] [place] [address], [place] [address] Seborrheic keratosis Social History Tobacco Use Types Packs/Day Years [...] Progress Notes * Jhon Giron MD - 07/30/2020 4:30 PM EST Problem: 1. Skin checkup, history of significant sun exposure growing up 2. Recent history of of breast CA 3. No known personal history of skin cancer. Quin follows up and is doing well. She would like to have a yearly skin checkup. She tells me she had good news recently, a second needle aspirate from her thyroid nodule came back as negative she is much relieved. She did have a history of breast cancer within the last 2 years. Physical examination reveals a benign examination of the head and the neck the chest the back the hands the arms the forearms the thighs and the calves. She has never small acrochordons around the left and right lateral base of her neck. These are often caught in necklaces and chains that she uses to retain her face mask when she is not actively wearing it Assessment plan: Benign skin examination 1. Patient sure about benign skin examination 2. No evidence of any cutaneous malignancies 3. Return to clinic in a year for recheck 4. If doing well that time may be able to space visits out. Acrochordons in neck 1. Could consider removal with electrodesiccation. CC: Avis Honeycutt APRN documented in this encounter Plan of Treatment Upcoming Encounters Date Type Department Care Team (Late st Contact Info) Description 05/30/2024 10:00 AM EST Appointment Mammography/[place] [address] Alicia Quinteros MD [facility] [place] [address] 08/11/2024 4:15 PM EST Office Visit Dermatology at [address] [place] [address] Jhon Giron MD [address] [place] [address], [place] [address] 11/21/2024 2:00 PM EDT Office Visit Radiation Oncology at [address] [phone] Alicia Quinteros MD [facility] [place] [address] 10/06/2029 Hospital Encounter [place] [address] Al Mendez MD [facility] [place] [address] Scheduled Procedures Name Priority Associated Diagnoses Date/Ti me @TOTAL KNEE REVISION ARTHROP LASTY, COMPLETE (WRVU 27.11) Instability Right TKA MODIFIER,GMK REVISION KNEE,MEDACTA Instability Right TKA documented as of this encounter Visit Diagnoses Diagnosis Seborrheic keratosis Other seborrheic keratosis documented in this encounter Care Teams Surgical Services Coordinator Relationship Specialty Start Date End Date Avis Honeycutt, LEVON [address] [place] [address] PCP - General Family Medicine 05/27/18 12/17/20 documented as of this encounter
--- OUTSIDE RECORDS SUMMARY | 2024-04-14 10:38 | XMS_ITS | Encounter Summary ---
[place] [address] Care Team Providers Care Dehydrogenation Operator Head Name Role Phone Bhaskar Morales MD Primary Care Provider [phone] Reason for Visit * Reason Onset Date Comments Pre Procedure Call 12/31/2020 Encounter Details Date Type Department Care Team (Late st Contact Info) Description 12/31/2020 [place] [phone] Al Mendez MD [facility] [place] [address] Pre Procedure Call Social History Tobacco Use Types Packs/Day Years [...] Notes * Telephone Encounter - Noemí Muhammad Dayron - 12/31/2020 10:02 AM EDT Who is calling? LESLY Best call back number: [phone] Best time to call back between 8:00 am & 5:00 pm: ANYTIME Can we leave a message? yes When is your procedure? LYNSEY Who is your surgeon? JENNIFER What procedure are you having?repair of left knee What is the question you would like to ask the clinical care team? PT called and stated things havegotten worse with her left knee and would like to proceed forward for scheduling surgery LYNSEY. Please place orders so that PT may schedule the surgery. Your message will be forwarded to the clinical care team for review. documented in this encounter Plan of Treatment Upcoming Encounters Date Type Department Care Team (Late st Contact Info) Description 05/30/2024 10:00 AM EST Appointment Mammography/[place] [phone] Alicia Quinteros MD [facility] [place] [address] 08/11/2024 4:15 PM EST Office Visit Dermatology at [address] [place] [address] Jhon Giron MD [address] [place] [address], [place] [address] 11/21/2024 2:00 PM EDT Office Visit Radiation Oncology at [address] [phone] Alicia Quinteros MD [facility] [place] [address] 10/06/2029 Hospital Encounter [place] [phone] Al Mendez MD [facility] [place] [address] Scheduled Procedures Name Priority Associated Diagnoses Date/Ti me @TOTAL KNEE REVISION ARTHROP LASTY, COMPLETE (WRVU 27.11) Instability Right TKA MODIFIER,GMK REVISION KNEE,MEDACTA Instability Right TKA documented as of this encounter Visit Diagnoses Not on filedocumented in this encounter Care Teams Dehydrogenation Operator Head Relationship Specialty Start Date End Date Bhaskar Morales MD PCP - General Family Medicine 12/18/20 documented as of this encounter
--- OUTSIDE RECORDS SUMMARY | 2024-04-14 10:38 | XMS_ITS | Encounter Summary ---
[place] [address] Care Team Providers Care Radio Time Salesperson Name Role Phone Bhaskar Moralse MD Primary Care Provider [phone] Encounter Details Date Type Department Care Team (Latest Contact Info) Description 02/06/2021 10:00 AM EDT Clinical [place] [address] Left knee pain, unspecified chronicity; Presence of left artificial knee joint; Status post left knee replacement; Knee dislocation, left, sequela Social History Tobacco Use Types Packs/Day Years [...] - Respiratory Rate - - Oxygen Saturation 97% 02/06/2021 10:09 AM EDT Inhaled Oxygen Concentration - - Weight - - Height - - Body Mass Index - - documented in this encounter Progress Notes * Lamonte Qureshi RN - 02/06/2021 10:00 AM EDT PAT questionnaire reviewed with patient while in Pre Admission testing. Pre- operative instruction booklet reviewed. Patient verbalizes a good understanding of all information reviewed. Patient has had general anesthesia previously at [facility] without a problem. Patient did not mean saying yes to being harmed. She has no issues with her safety. Pre Surgery Covid screening patient response: No Patient will bring her c-pap Clearfast given. [facility] Penicillin Allergy Risk Assessment 02/06/2021: Low risk penicillin allergy. OK to receive full dose of cefazolin, cefuroxime, or any 3rd or 4th+ generation cephalosporin. PAT Clinic [facility] ASSISTANT to place Allergy referral for formal penicillin allergy evaluation. Patient is open to a consult by phone fromallergy clinic. PLAN: Testing: Blood work + T&S + EKG Procedure date: 02/15 [place] documented in this encounter Plan of Treatment Upcoming Encounters Date Type Department Care Team (Late st Contact Info) Description 05/30/2024 10:00 AM EST Appointment Mammography/[place] [address] Alicia Quinteros MD [facility] [place] [address] 08/11/2024 4:15 PM EST Office Visit Dermatology at [address] [place] [address] Jhon Giron MD [address] [place] [address], [place] [address] 11/21/2024 2:00 PM EDT Office Visit Radiation Oncology at [address] [phone] Alicia Quinteros MD [facility] [place] [address] 10/06/2029 Hospital Encounter [place] [phone] Al Mendez MD [facility] [place] [address] Scheduled Procedures Name Priority Associated Diagnoses Date/Ti me @TOTAL KNEE REVISION ARTHROP LASTY, COMPLETE (WRVU 27.11) Instability Right TKA MODIFIER,GMK REVISION KNEE,MEDACTA Instability Right TKA documented as of this encounter Procedures Procedure Name Priority Date/Time Associated Diagnosis Comments TYPE AND SCREEN VALIDITY Routine 02/06/2021 11:02 AM EDT ABORH RECHECK STATUS Routine 02/06/2021 11:02 AM EDT HEMOGRAM Routine 02/06/2021 11:02 AM EDT Left knee pain, unspecified chronicity Presence of left artificial knee joint Status post left knee replacement Knee dislocation, left, sequela DIFFERENTIAL, AUTOMATED Routine 02/06/2021 11:02 AM EDT Left knee pain, unspecified chronicity Presence of left artificial knee joint Status post left knee replacement Knee dislocation, left, sequela HC ANTIBODY DETECTION,CAPTURE-R Routine 02/06/2021 11:02 AM EDT Left knee pain, unspecified chronicity Presence of left artificial knee joint Status post left knee replacement Knee dislocation, left, sequela ABO/RH TYPING Routine 02/06/2021 11:02 AM EDT Left knee pain, unspecified chronicity Presence of left artificial knee joint Status post left knee replacement Knee dislocation, left, sequela HC PARTIAL THROMBOPLASTIN TIME Routine 02/06/2021 11:02 AM EDT Left knee pain, unspecified chronicity Presence of left artificial knee joint Status post left knee replacement Knee dislocation, left, sequela HC PROTHROMBIN TIME Routine 02/06/2021 1 1:02 AM EDT Left knee pain, unspecified chronicity Presence of left artificial knee joint Status post left knee replacement Knee dislocation, left, sequela HC CBC,PLT & AUTO DIFF Routine 11:02 AM EDT Left knee pain, unspecified chronicity Presence of left artificial knee joint Status post left knee replacement Knee dislocation, left, sequela ANTIBODY SCREEN Routine 02/06/2021 11:02 AM EDT Left knee pain, unspecified chronicity Presence of left artificial knee joint Status post left knee replacement Knee dislocation, left, sequela BASIC METABOLIC PANEL Routine 02/06/2021 11:02 AM EDT Left knee pain, unspecified chronicity Presence of left artificial knee joint Status post left knee replacement Knee dislocation, left, sequela EKG 12-LEAD Routine 02/06/2021 10:57 AM EDT Left knee pain, unspecified chronicity Presence of left artificial knee joint Status post left knee replacement Knee dislocation, left, sequela documented in this encounter Results * Type and Screen Validity (02/06/2021 11:02 AM EDT) T&S only valid at [facility] LABORATORY Comment:This Type and Screen result is only valid at the [facility] Blood 02/06/2021 11:0 2 AM EDT 02/06/2021 11:04 AM EDT Narrative Resulting Agency Comment Spec In Lab Al Mendez MD BLOOD BANK LAB ORDER NILDA Performing Organization Address City/[facility]/ZIP Co de Phone Number [facility] [place] [place] [address] * ABORH Recheck Status (02/06/2021 11:02 AM EDT) ABORH Recheck Order Order Placed [facility] ABORH Type Recheck Complete [facility] Blood 02/06/2021 11:0 2 AM EDT 02/06/2021 11:04 AM EDT Narrative Resulting Agency Comment Spec In Lab Al Mendez MD BLOOD BANK LAB ORDER [place] [address] * Antibody screen (02/06/2021 11:02 AM EDT) Pathologist [facility] Ab Screen Interp Negative [facility] Expires at [id number] on: 02/18/2021 [facility] Blood 02/06/2021 11:0 2 AM EDT 02/06/2021 11:04 AM EDT Narrative Resulting Agency Comment Spec In Lab Al Mendez MD BLOOD BANK LAB ORDER NILDA [facility] [place] [place] [address] * Differential, Automated (02/06/2021 11:02 AM EDT) [facility] Neutrophil % 66.2 % [facility] LABORATORY Neutrophil Absolute 3.98 1.70 - 6.10 x10(3)/[facility] LABORATORY Lymph % 21.1 % [facility] Lymphocytes Abs 1.3 0.9 - 3.2 x10(3)/[facility] LABORATORY Monocyte % 9.2 % [facility] Monocyte Abs 0.6 0.3 - 0.9 x10(3)/[facility] Eos % 3.0 % [facility] Eosinophils Abs 0.2 0.0 - 0.4 x10(3)/[facility] LABORATORY Basophil % 0.3 % [facility] Baso Absolute 0.0 0.0 - 0.1 x10(3)/[facility] LABORATORY Immature Gran % 0.20 % [facility] Comment: Immature granulocytes(IG's)percentage and absolute count will include metamyelocytes, myelocytes, and promyelocytes. Blood smears from CBCs yielding IG's will be scanned manually for concordance. If this scan disagrees with the automated IG or if promyelocytes are noted, a manual differential will be performed. Immature Gran Absolute 0.01 0.00 - 0.04 x10(3)/[facility] Blood 02/06/2021 11:0 2 AM EDT 02/06/2021 11:08 AM EDT Narrative Resulting Agency Comment Spec In Lab Al Mendez MD HEMATOLOGY ORDERABLE S [facility] [place] [place] [address] * ABO/Rh Typing (02/06/2021 11:02 AM EDT) ABORH Type O Pos [facility] Blood 02/06/2021 11:0 2 AM EDT 02/06/2021 11:04 AM EDT Narrative Resulting Agency Comment Spec In Lab Al Mendez MD BLOOD BANK LAB ORDER NILDA Performing Organization Address City/[facility]/ZIP Co de Phone Number [facility] [place] [address] * (ABNORMAL) Hemogram (02/06/2021 11:02 AM EDT) White Blood Cell 6.0 4.0 - 9.5 x10(3)/mc L [facility] Red Blood Cell 4.48 4.00 - 5.21 x10(6)/mc L [facility] Hemoglobin 12.0 11.7 - 15.5 gm/dL [facility] Hematocrit 37.8 35.7 - 45.8 % [facility] Mean Cell Volume 84.4 82.6 - 94.4 fL [facility] Mean Cell Hemoglobin 26.8(L) 27.1 - 32.0 pg [facility] Mean Cell Hemoglobin Concentration 31.7 31.7 - 35.0 gm/dL [facility] Platelet 238 145 - 357 x10(3)/mc L [facility] RDW Standard Deviation 44.7 37.0 - 46.0 fL [facility] RDW coefficient of variation 14.6(H) 11.5 - 14.1 % [facility] Mean Platelet Volume 11.3 7.6 - 12.9 fL [facility] NRBC% auto 0.0 % [facility] NRBC Absolute 0.000 0.000 - 0.000 x10(3)/mc L [facility] Blood 02/06/2021 11:0 2 AM EDT 02/06/2021 11:08 AM EDT Narrative Resulting Agency Comment Spec In Lab Al Mendez MD HEMATOLOGY ORDERABLE S [facility] [place] [address] * (ABNORMAL) Basic Metabolic Panel (non-fasting) (02/06/2021 11:02 AM EDT) Glucose 118 65 - 199 mg/dL [facility] Comment:Diabetes: >=200 mg/d L plus symptoms Blood Urea Nitrogen 24(H) 8 - 18 mg/dL [facility] Creatinine 0.85 0.70 - 1.20 mg/dL [facility] Sodium 140 135 - 145 mmol/L [facility] Potassium 4.3 3.5 - 5.0 mmol/L [facility] Comment: Please note: ??Patients with WBC >100,000 may have falsely elevated Potassium levels. ??For accurate Potassium quantification in these patients send serum separator tube (gold top) for subsequent determinations. ??Contact the Clinical Chemistry Laboratory if there are any questions. Chloride 101 98 - 107 mmol/L [facility] Carbon Dioxide 29 22 - 31 mmol/L [facility] Anion Gap 10 5 - 15 mmol/L [facility] Calcium 10.7(H) 8.5 - 10.5 mg/dL [facility] Est Glomerular Filtration Rate 77 >=60 mL/min/1. 73 m?? [facility] Comment: This patient? s estimated glomerular filtration rate (eGFR) is between 77 mL/min/1.73 m2 (patients with less muscle mass) and 89 mL/min/1.73 m2 (patients with more muscle mass) [...] and symptoms in addition to eGFR. Blood 02/06/2021 11:0 2 AM EDT 02/06/2021 11:08 AM EDT Narrative Resulting Agency Comment Spec In Lab Al Mendez MD CHEMISTRY ORDERABLES Performing Organization Address [facility] Co de Phone Number [facility] [address] * Prothrombin Time (02/06/2021 11:02 AM EDT) Prothrombin Time 12.1 9.4 - 12.5 sec [facility] International Normalization Ratio 1.1 [facility] Comment: An INR <2.0 indicates adequate procoagulant activity for hemostasis in most patients without underlying bleeding disorders, though the INR may not adequately reflect hemostatic capacity in patients with liver disease and synthetic impairment. The recommended target INR range for therapeutic anticoagulation is 2.0 ? 3.0 for most applications, though lower and higher ranges may be appropriate depending on clinical circumstances. Blood 02/06/2021 11:0 2 AM EDT 02/06/2021 11:08 AM EDT Narrative Resulting Agency Comment Spec In Lab Al Mendez MD HEMATOLOGY ORDERABLE S Performing Organization Address [facility] Co de Phone Number [facility] [address] * APTT (02/06/2021 11:02 AM EDT) Partial Thromboplastin Time 35 25 - 37 sec [facility] Comment: The PTT is NOT appropriate for heparin monitoring. Use the Anti-Xa level for heparin monitoring (HEP UFH) or LMWH monitoring (HEP LMW). A PTT less than 37 seconds generally indicates adequate hemostasis. Blood 02/06/2021 11:0 2 AM EDT 02/06/2021 11:08 AM EDT Narrative Resulting Agency Comment Spec In Lab Al Mendez MD HEMATOLOGY ORDERABLE S Performing Organization Address City/[facility] Co de Phone Number [facility] [place] [address] * EKG 12 Lead (02/06/2021 10:57 AM EDT) Ventricular rate 69 BPM MUSE SYSTEM Atrial Rate 69 BPM MUSE SYSTEM P-R Interval 172 ms MUSE SYSTEM QRS Duration 102 ms MUSE SYSTEM Q-T Interval 412 ms MUSE SYSTEM QTC Calculated (Bezet) 441 ms MUSE SYSTEM Calculated P [place] -19 degrees MUSE SYSTEM Calculated R [place] 44 degrees MUSE SYSTEM Calculated T [place] 28 degrees MUSE SYSTEM INTERPRETATION Normal sinus rhythm Normal ECG No previous ECGs available Confirmed by MD MARIA FERNANDA, [place] ([id number]) on 02/06/2021 11:46:46 AM MUSE SYSTEM 02/06/2021 10:5 7 AM EDT 02/06/2021 11:46 AM EDT Al Mendez MD ECG ORDERABLES Performing Organization Address City[facility] de Phone Number MUSE SYSTEM documented in this encounter Visit Diagnoses Diagnosis Left knee pain, unspecified chronicity Presence of left artificial knee joint Knee joint replacement by other means Status post left knee replacement Knee dislocation, left, sequela documented in this encounter Care Teams Radio Time Salesperson Relationship Specialty Start Date End Date Bhaskar Morales MD PCP - General Family Medicine 12/18/20 documented as of this encounter
--- OUTSIDE RECORDS SUMMARY | 2024-04-14 10:38 | XMS_ITS | Encounter Summary ---
Author Organization [facility] [place] [address] Care Team Providers Care Balance Clerk Name Role Phone Avis Honeycutt APRN Primary Care Provider [phone] Reason for Visit * Reason Comments Skin Check Encounter Details Date Type Department Care Team (Late st Contact Info) Description 07/29/2019 10:45 AM EST Office Visit Dermatology at [address] [phone] Jhon Giron MD [address] [place] [address], [place] [address] [place] (actinic keratosis); Seborrheic keratosis Social History Tobacco Use Types [...] Progress Notes * Jhon Giron MD - 07/29/2019 10:45 AM EST Problem: 1. Skin checkup, history of significant sun exposure growing up 2. Recent history of of breast CA 3. No known personal history of skin cancer. 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 She was diagnosed and treated for breast CA and Dr. Alicia Gonzalez recommended that she have a general skin checkup on a yearly basis as well given her significant history of sun exposure growing up in [place] and much time spent in the water, in pools enjoying the [id number]. She has noted a lesion on the right nondenominational that concerns her. She states that her father also is fair skinned as she is also and hashad some issues with skin cancer. Physical examination reveals an erythematous slightly keratotic patch consistent with actinic keratosis on the right nondenominational. It is nonpigmented. It is nontender and not sore. She has brown eyes and has freckled, fair skin. She has a benign examination of the head and the neck the chest the back of the hands the arms of forearms the thighs and the calves. Assessment plan: Actinic keratosis right nondenominational 1. LN 2 x 1 applied lightly to use the site 2. Discussed post LN2 care 3. Agree with desirability of yearly skin checkups for the first for the near future, possibly withdecreased frequency if they prove benign over several years. Benign skin examination in a patient with a history of breast cancer 1. Patient visibly relieved when told about her benign skin examination 2. Patient aware that there is no connection between primary cutaneous carcinomas and breast CA 3. Reinforced sun avoidance precautions which patient is following 4. Return to clinic in a year for repeat check Cc: MD Avis Lucio APRN documented in this encounter Plan of Treatment Upcoming Encounters Date Type Department Care Team (Late st Contact Info) Description 05/30/2024 10:00 AM EST Appointment Mammography/[place] [address] Alicia Quinteros MD [facility] [place] [address] 08/11/2024 4:15 PM EST Office Visit Dermatology at [address] [place] [address] Jhon Giron MD [address] [facility] [facility] [place] [address] 11/21/2024 2:00 PM EDT Office Visit Radiation Oncology at [address] [phone] Alicia Quinteros MD [facility] [place] [address] 10/06/2029 Hospital Encounter [place] [phone] Al Mendez MD [facility] DR [place] [address] Scheduled Procedures Name Priority Associated Diagnoses Date/Ti me @TOTAL KNEE REVISION ARTHROP LASTY, COMPLETE (WRVU 27.11) Instability Right TKA MODIFIER,GMK REVISION KNEE,MEDACTA Instability Right TKA documented as of this encounter Visit Diagnoses Diagnosis [place] (actinic keratosis) Actinic keratosis Seborrheic keratosis Other seborrheic keratosis documented in this encounter Care Teams Balance Clerk Relationship Specialty Start Date End Date Avis Honeycutt APRN [address] [place] [address] PCP - General Family Medicine 05/27/18 12/17/20 documented as of this encounter
--- OUTSIDE RECORDS SUMMARY | 2024-04-14 10:38 | XMS_ITS | Encounter Summary ---
Author Organization [facility] Address [facility] [place] [address] Care Team Providers Care Foreclosure Home Inspector Name Role Phone TangelaAvis LEVON Primary Care Provider [phone] Reason for Visit * Reason Comments Genetic Evaluation * Consultation (Routine) - Closed Specialty Diagnoses / Procedures Referred By Agus govea Referred To Contact Hematology and Oncology Diagnoses Ductal carcinoma in situ (DCIS) of left breast Family history of prostate cancer Bill Jeong MD [facility] DR HEMATOLOGY/[place] [address] [facility] Hem Onc Office [address] [place] [id number] Referral ID Status Reason Start Date Expiration Date V isits Requested Visits Authorized [id number] Closed Consult, Test & Treat 07/22/2018 07/22/2019 1 1 Encounter Details Date Type Department Care Team (Late st Contact Info) Description 12/15/2018 9:00 AM EDT TH Visit (TeleHealth) Hematology [place] [address] Anabel Sanchez, [facility] HEMATOLOGY/[place] [address] Ductal carcinoma in situ (DCIS) of left breast; Family history of malignant neoplasm of breast Social History Tobacco Use Types Packs/Day [...] as of this encounter Progress Notes * Anabel Sanchez LGC - 12/15/2018 9:00 AM EDT Ms. Santana was seen by Denise Sanchez MS, [facility] in consultation at the request of Kevon Jeong MD to advise regarding possible heritable predisposition to cancer. I spent 35 minutes of this telehealth face to face encounter with the patient gathering medical andfamily history and discussing the likelihood of a genetic predisposition to cancer and the option of genetic testing. Reason for referral/Chief complaint Personal history of Ductal Carcinoma Insitu (DCIS) cancer and family history of prostate cancer in her father. Ms. Santana is also Ashkenazi Confucianism.. Medical history Cancer hx and treatment: Left DCIS at age 53 treated with lumpectomy and radiation therapy. Genetictesting may be helpful in deciding whether to pursue hormonal therapy. Family History Problem Relation Age of Onset ??? Prostate Cancer Father 74 ??? Breast Cancer Neg Hx ??? Ovarian Cancer Neg Hx Maternal ethnic background is [place]ese, Ashkenazi Confucianism. Paternal ethnic background is [place]ese, Ashkenazi Confucianism. Genetic risk assessment Based on personal and/or family history, the likelihood that Quin would be found to have a mutation in a cancer predisposition gene is high enough to offer the option of genetic testing. Panel genetic testing for an inherited predisposition to cancer, including breast and prostate cancers. The risks, benefits and limitations of panel genetic testing were reviewed, specifically a high rate of identifying a variant of uncertain significance (~20%), lack of knowledge of cancer risk for newly identified, moderate risk genes included in the panel and lack of effective screening, as well as cancerrisk for other cancers not observed in the family. Quin opted for testing with [facility] Common Hereditary Cancers Panell, a next generation sequencing panel that simultaneously analyzes 47 genes, including BRCA1 and BRCA2, that contribute to increased risk for cancer, including breast and prostate cancers. Quin was consented. Her blood sample was drawn and sent to [facility]. Testing will take approximately 3 weeks. Quin will be contacted via telephone once her test results become available. If positive, we will schedule a follow- up appointment. At that time, we will discuss with Quin the implications that this test result may have for her, as well as her family members. We will also provide Quin with screening guidelines for cancer prevention and early detection, as well as answer any questions she may have. documented in this encounter Plan of Treatment Upcoming Encounters Date Type Department Care Team (Late st Contact Info) Description 05/30/2024 10:00 AM EST Appointment Mammography/[place] [phone] Alicia Quinteros MD [facility] [place] [address] 08/11/2024 4:15 PM EST Office Visit Dermatology at [address] [place] [phone] Jhon Giron MD [address] [place] [address], [place] [address] 11/21/2024 2:00 PM EDT Office Visit Radiation Oncology at [address] [phone] Alicia Quinteros MD [facility] [place] [address] 10/06/2029 Hospital Encounter [place] [phone] Al Mendez MD [facility] [place] [address] Scheduled Procedures Name Priority Associated Diagnoses Date/Ti me @TOTAL KNEE REVISION ARTHROP LASTY, COMPLETE (WRVU 27.11) Instability Right TKA MODIFIER,GMK REVISION KNEE,MEDACTA Instability Right TKA Scheduled Referrals Name Type Priority Associated Diagnoses Orde r Schedule Referral to Familial Cancer Outpatient Referral Routine Ductal carcinoma in situ (DCIS) of left breast Family history of prostate cancer Ordered: 07/22/2018 documented as of this encounter Visit Diagnoses Diagnosis Ductal carcinoma in situ (DCIS) of left breast Family history of malignant neoplasm of breast documented in this encounter Care Teams Foreclosure Home Inspector Relationship Specialty Start Date End Date Avis Honeycutt, LEVON [address] [place] [address] PCP - General Family Medicine 05/27/18 12/17/20 documented as of this encounter
--- OUTSIDE RECORDS SUMMARY | 2024-04-14 10:38 | XMS_ITS | Encounter Summary ---
Author Organization [facility] [place] [address] Care Team Providers Care Hydrological Technical Officer Name Role Phone Avis Honeycutt APRN Primary Care Provider [phone] Encounter Details Date Type Department Care Team (Late Contact Info) Description 10/22/2018 Ancillary Procedure Radiology Library at [facility] [place] [phone] Avis Honeycutt APRN [address] [place] [id number] Social History Tobacco Use Types Packs/Day Years [...] 10:00 AM EST Appointment Mammography/DXA at [facility] [place] [phone] Alicia Quinteros MD [facility] RADIATION ONCOLOGY [place], [place] [id number] 08/11/2024 4:15 PM EST Office Visit Dermatology at [place] [address] [place] [address] Jhon Giron MD [address], [place] [address] 11/21/2024 2:00 PM EDT Office Visit Radiation Oncology at [address] [phone] Alicia Quinteros MD [facility] [place] [address] 10/06/2029 Hospital Encounter [place] [address] Al Mendez MD [facility] [place] [address] Scheduled Procedures Name Priority Associated Diagnoses Date/Ti me @TOTAL KNEE REVISION ARTHROP LASTY, COMPLETE (WRVU 27.11) Instability Right TKA MODIFIER,GMK REVISION KNEE,MEDACTA Instability Right TKA documented as of this encounter Procedures Procedure Name Priority Date/Time Associated Diagnosis Comments FILM LIBRARY STORAGE ONLY MAMMO Routine 10/22/2018 12:00 AM EDT documented in this encounter Results * Film Library- Storage Only Mammo (10/22/2018 12:00 AM EDT) Narrative RAD - 06/13/2019 8:39 AM EST This exam is auto-finalizing. It's purpose is for storage only. Avis BLANCAS FILM LIBRARY ORD ERABLES [place], [place] documented in this encounter Visit Diagnoses Not on filedocumented in this encounter Care Teams Hydrological Technical Officer Relationship Specialty Start Date End Date Avis Honeycutt APRN [address] [place] [address] PCP - General Family Medicine 05/27/18 12/17/20 documented as of this encounter
--- OUTSIDE RECORDS SUMMARY | 2024-04-14 10:38 | XMS_ITS | Encounter Summary ---
Author Organization [facility] [place] [address] Care Team Providers Care Sql Etl Developer Name Role Phone Avis Honeycutt [employer] Primary Care Provider [phone] Encounter Details Date Type Department Care Team (Late st Contact Info) Description 12/09/2018 Notes Only [place]ology [place] [address] Bill Jeong MD [facility] DR HEMATOLOGY/[place] [address] Social History Tobacco Use Types Packs/Day Years [...] as of this encounter Progress Notes * Bill Jeong MD - 12/09/2018 11:21 AM EDT I have reviewed the patient's record and given personal and/or family history of cancer she should be seen by genetic counselor. This is scheduled for next week. documented in this encounter Plan of Treatment Upcoming Encounters Date Type Department Care Team (Late st Contact Info) Description 05/30/2024 10:00 AM EST Appointment Mammography/[place] [address] Alicia Quinteros MD [facility] [place] [address] 08/11/2024 4:15 PM EST Office Visit Dermatology at [place] [address] [place] [address] Jhon Giron MD [address], [place] [address] 11/21/2024 2:00 PM EDT Office Visit Radiation Oncology at [address] [phone] Alicia Quinteros MD [facility] [place] [address] 10/06/2029 Hospital Encounter [place] [address] Al Mendez MD [facility] [place] [address] Scheduled Procedures Name Priority Associated Diagnoses Date/Ti me @TOTAL KNEE REVISION ARTHROP LASTY, COMPLETE (WRVU 27.11) Instability Right TKA MODIFIER,GMK REVISION KNEE,MEDACTA Instability Right TKA documented as of this encounter Visit Diagnoses Not on filedocumented in this encounter Care Teams Sql Etl Developer Relationship Specialty Start Date End Date Avis Honeycutt APRN [address] [place] [address] PCP - General Family Medicine 05/27/18 12/17/20 documented as of this encounter
--- OUTSIDE RECORDS SUMMARY | 2024-04-14 10:38 | XMS_ITS | Encounter Summary ---
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 Procedures PRO REVISE KNEE JOINT REPLACE, ALL PARTS TOTAL KNEE REVISION ARTHROPLASTY, COMPLETE (WRVU 27.11) MODIFIER,GMK REVISION KNEE,MEDACTA Referral ID Status Reason Start Date Expiration Date Visits Re quested Visits Authorized [id number] 1 Encounter Details Date Type Department Care Team (Late st Contact Info) Description 02/15/2021 8:30 AM EDT - 02/15/2021 12:15 PM EDT Surgery [place] [address] Al Mendez MD [facility] [place] [address] @TOTAL KNEE REVISION ARTHROPLASTY, COMPLETE (WRVU 27.11) Social History Tobacco Use Types Packs/Day Years [...] Sign Reading Time Taken Comments Blood Pressure 104/51 02/15/2021 12:15 PM EDT Pulse 98 02/15/2021 12:15 PM EDT Temperature 36.5 ??C (97.7 ??F) 02/15/2021 1 2:06 PM EDT Respiratory Rate 37 02/15/2021 12:1 5 PM EDT Oxygen Saturation 97% 02/15/2021 12: 15 PM EDT Inhaled Oxygen Concentration - - Weight 130.6 kg (287 lb 14.7 oz) 02/15/2021 7:18 AM EDT Height 154.9 cm (5' 0.98) 02/15/2021 7:18 AM ED T Body Mass Index 54.43 02/15/2021 7:18 AM EDT documented in this encounter Discharge Summaries * Tere Wayne, GLUER MACHINE SETUP OPERATOR - 02/15/2021 11:09 AM EDT Discharge Summary Patient Name: Quin Santana Patient Age: 55 y.o. Language: Turkish Race: White Ethnicity: Not nor Admit date: 02/15/2021 Discharge date and time: 02/16/2021 Attending Physician: Al Mendez MD Discharge Physician: Al Mendez MD Follow-up Recommendations for Providers: See discharge instructions for additional details. Future Appointments Date Time Provider Department Center 03/20/2021 1:30 PM [facility] DX ROOM 3 MH Xray [facility] Rad 03/20/2021 2:30 PM Al Mendez MD [facility] 3C [facility] 08/01/2021 4:30 PM Jhon Giron MD [facility] Inpatient Provider Contact Information: Al Mendez MD Orthopedics: [phone] After hours and weekends, call [facility] Senior Business Architect, , and have the Orthopedic resident paged. [...] a Left TKA with Dr. Foreman at [place], [place] on 05/02/2015. The knee had done reasonably well until approximately 4 months prior to presentation at [facility] when she squatted down and felt a shift in the knee. She continued with physical therapy until early December when she saw Dr. 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 Inflammatory markers were benign. She was referred to [facility] for further management. Given the catastrophic failure [...] care of this patient. If you are [facility] provider and have any questions regarding this report, please contact the number below.For patients who have questions please contact the health care clinician that requested your imaging first. Electronically signed by: Delores Corral MD, [facility] ([phone]), at 02/15/2021 2:07 PM Transfusions: No Discharge Conditions/Prognosis: Stable, awake, and alert. Mobilizing as noted above, pain controlled on oral medications. Discharge to: Home with VNA. Updated Allergies/ADRs: Allergies Allergen Reactions ??? Hymenoptera Allergenic Extract Anaphylaxis Stinging insects ??? Venom-Honey Bee Other reaction(s): Anaphylaxsis ??? Insect Venom ??? Lactose ??? Levonorgestrel-Ethinyl Estrad ??? Penicillins [facility] Penicillin Allergy Risk Assessment 02/06/2021: Low risk penicillin allergy. OK to receive full dose of cefazolin, cefuroxime, or any 3rd or 4th+ generation cephalosporin. [facility] Clinic GLUER MACHINE SETUP OPERATOR to place Allergy referral for formal penicillin [...] bowel movement. You can also take an hawl-zuw-ufrjnan medication, Miralax if needed to combat constipation. [...] as much as possible. Call your doctor ([phone]) if you develop: 1. Fever greater than 100.5 2. Severe nausea or vomiting 3. Increasing pain that is not controlled by pain medications 4. Increasing redness, swelling, or drainage from incisions 5. Change in sensation FOLLOW-UP APPOINTMENTS: 1. You will have follow-up appointments at [facility] as indicated below in Future Appointment and Orders. 2. You will need to have x-rays prior to your follow-up appointment on 03/20/2021. Please come to Radiology, desk 3T, 1 hour BEFORE that appointment for those x-rays. Future Appointments Date Time Provider Department Center 03/20/2021 1:30 PM [facility] DX ROOM 3 Xray [facility] Rad 03/20/2021 2:30 PM Al Mendez MD [facility] 3C [facility] 08/01/2021 4:30 PM Jhon Giron MD [facility] If you have questions or [...] Provider Department Dept Phone 03/20/2021 1:30 PM [facility] DX ROOM 3 XRay at [facility] Arrive at: [facility] [phone] Please go to [facility] ([place] Location). 03/20/2021 2:30 PM Al Mendez MD Orthopaedics at [facility] Arrive at: [facility] [phone] 08/01/2021 4:30 PM Jhon Giron MD Dermatology at [place] Arrive at: [facility] [address] [phone] Future Orders Complete By Expires Referral to Home Health - at DISCHARGE [[id number] CPT(R)] As directed Process Instructions: Scheduling Instructions: Comments: DOCUMENTATION FOR [facility]NA SERVICES (INCLUDING PATIENTS WITH MEDICARE COVERAGE BEING DISCHARGED HOME WITH VNA SERVICES AND/OR HOSPICE SERVICES) PATIENT'S LOCATION: Quin Santana Discharge to own home: [address] [place] [address] [address] [facility] [address] [employer] Liaison Officer's Name: self In discussion with the attending physician, it is certified that this patient is under their care and that they, or a nurse practitioner, clinical nurse specialist or physician's registered dental assistant who is working directly with them, had [...] for home health services. HOME HEALTH AGENCY: [facility]. PHONE: [phone] FAX: [phone] 1.Snf(SN) eval if indicated on admission visit 2. Anticoagulaltion - Rivaroxaban 10 mg daily X 30 days 3. TORRIE Incisional VAC - keep on X 7 days then remove and discard. After TRORIE VAC dressing removed (On 02/22/2021, apply silver [...] to be obtained from this patient's PCP: Bhaskar Morales MD [facility] [address] All A agencies which cover patient's residence area have been reviewed, either verbally or in writing, and patient/family have chosen the indicated home health agency. Questions: Agency name and contact information: [facility] Patient location post discharge: Home What services are requested: Physical Therapy Occupational Therapy Start date: Responsible MD post discharge contact info: PCP Primary Care Provider: Bhaskar Morales MD [phone] Discharge References/Attachments None documented in this encounter Discharge Instructions * Patient Instructions* Tere Wayne, LEVON - 02/16/2021 1:13 PM EDT Activity: 1. [...] bowel movement. You can also take an ovkt-wwr-sokbpjd medication, Miralax if needed to combat constipation. [...] white VAC) is removed and discarded. Each OTRRIE is for single use. It will stop [...] as much as possible. Call your doctor ([phone]) if you develop: 1. Fever greater than 100.5 2. Severe nausea or vomiting 3. Increasing pain that is not controlled by pain medications 4. Increasing redness, swelling, or drainage from incisions 5. Change in sensation FOLLOW-UP APPOINTMENTS: 1. You will have follow-up appointments at [facility] as indicated below in Future Appointment and Orders. 2. You will need to have x-rays prior to your follow-up appointment on 03/20/2021. Please come to Radiology, desk 3T, 1 hour BEFORE that appointment for those x-rays. Future Appointments Date Time Provider Department Center 03/20/2021 1:30 PM [facility] DX ROOM 3 Xray [facility] Rad 03/20/2021 2:30 PM Al Mendez MD [facility] 3C [facility] 08/01/2021 4:30 PM Jhon Giron MD [facility] If you have questions or concerns: Thursday through Thursday, 8 AM - 5 PM, please call Dr. Al Mendez MD's office at . If it is after 5 PM, the weekend, or holidays, please call and [facility]. documented in this encounter Medications [...] Saravia RN - 02/16/2021 1:21 PM EDT [facility] Short Stay Unit Discharge Note All relevant [...] Discharge Summary has been sent. * John Coppola PT - 02/16/2021 12:07 PM EDTSummary: PT [...] Stereotactic Biopsy Left 05/10/2018 Jinny Gutierrez MD [facility] RAD MAMMOGRAPHY ??? PRO MASTECTOMY PARTIAL Left 06/24/2018 MASTECTOMY PARTIAL (WRVU 10.13) performed by Frances Zee MD at [facility] MAIN OR Social History: ?? 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 Entrance has a ramp and ptwill not [...] Positioning Recommendations: ?? OOB (flat) using leg clerical order filler if needed to self assist LLE. ?? [...] PT. Discharge Recommendations: Home with Home PT, / S Equipment needs for home at d/c: Patient has all necessary equipment Patient status, treatment, and mobility recommendations have been discussed with nursing, Care management and Medical team. Thank you for this consult. JOHN COPPOLA, PT Pager: [phone] Physical Therapy Inpatient Rehabilitation Department Time IN / OUT: [id number] PT Evaluation Code Rationale: ?? Diagnosis & [...] serve their preferred geographicarea. Provided patient with [facility] Star Quality Rating for Home care hand out. Patient requests referral to [facility] [employer]. PHONE: [phone] FAX: [phone]. Expected date of discharge: 02/16/2021 Referral routed to the Home Stereo Equipment Installer for matching with agency/vendor and to provide [...] Stereotactic Biopsy Left 05/10/2018 Jinny Gutierrez MD [facility] RAD MAMMOGRAPHY ??? 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 Entrance has a ramp and pt will [...] WFL Vision & Perception: WNL/WFL corrective lenses all source intelligence technician Communication/Hearing: WFL Musculoskeletal: Hand dominance: right Strength/AROM: [...] Supine to sit: mod I using leg clerical order filler and with HOB elevated Sit to stand: [...] and measurable assessment of functional outcome. Pager: [phone] Lizzy Pearce OTR/L Occupational Therapy Rehabilitation Department * Ever, Sung Gonsalez MD - 02/16/2021 6:58 AM EDT ORTHOPAEDIC [...] Plan for discharge pending evaluation by PT/OT, ability tovoid. Activity: WBAT Closure: Resorbable sutures Dressing: TORRIE iVac Drain: NA Anticoagulation: PEPPER Study and Rivaroxaban 10 mg qAM for 30 days Antibiotics: periop Cefazolin x 24 hrs Consults: PT/OT Dispo: pending PT/OT eval Follow-up: As sheduled Sung Curtis MD 02/16/2021 Future Appointments Date Time Provider Department Center 03/20/2021 1:30 PM [facility] DX ROOM 3 MH Xray [facility] Rad 03/20/2021 2:30 PM Al Mendez MD [facility] 3C [facility] 08/01/2021 4:30 PM Jhon Giron MD [facility] * Tyshawn Borjas MD - [...] Time Provider Department Center 03/20/2021 1:30 PM [facility] DX ROOM 3 Xray [facility] Rad 03/20/2021 2:30 PM Al Mendez MD [facility] 3C [facility] 08/01/2021 4:30 PM Jhon Giron MD [facility] documented in this encounter H&P Notes * Jason Rodrigez MD - 02/15/2021 7:59 AM EDT Patient Name: Quin Santana Patient Age: 55 y.o. Birthdate: 1965 Admit date: 02/15/2021 Attending Physician: Al Mendez MD 24-HOUR UPDATE Quin Santana was seen in [facility]. No interval events or changes in health status since preoperative H+P (see EPIC). Denies angina/dyspnea/fevers or malaise within the last 14 days. All questions were answered. Stable for surgery as scheduled. documented in this encounter Miscellaneous Notes * Op Note - Al Mendez MD - 02/15/2021 9:02 AM EDT [facility] Operative Note Patient Name: Quin Santana : [id number] MR#: [id number] Case Date: 02/15/2021 Surgeon: Surgeon(s) and Role: [...] for cell count and culture Explants to [place] lab Drains: * No LDAs found * [...] a Left TKA with Dr. Foreman at [facility] in [place], [place] on 05/02/2015. The knee had done reasonably well until approximately 4 months prior to presentation at [facility] when she squatted down and felt a shift in the knee. She continued with physical therapy until early December when she saw Dr. 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 Inflammatory markers were benign. She was referred to [facility] for further management. Given the catastrophic failure [...] implants were opened and assembled according to wheel assembler instructions. ??2 40g bags of medium viscosity [...] TOTAL KNEE REVISION ARTHROPLASTY, COMPLETE (WRVU 27.11) MODIFIER,K REVISION KNEE,MEDACTA. The procedure was more difficult [...] Implant Name Type Inv. Item Serial No. Rice Dryer Mechanic Lot No. LRB No. Used Action CEMENT BONE MEDIUM VISCOSITY 40GM GENTAMICIN SINGLE DOSE ([id number]) - [id number] IMPLANTS CEMENT BONE MEDIUM VISCOSITY 40GM GENTAMICIN SINGLE DOSE ([id number]) [employer] [id number] Left 1 Implanted CEMENT BONE MEDIUM VISCOSITY 40GM GENTAMICIN SINGLE DOSE ([id number]) - [id number] IMPLANTS CEMENT BONE MEDIUM VISCOSITY 40GM GENTAMICIN SINGLE DOSE ([id number]) [employer] [id number] Left 1 Implanted COMP FEMORAL KNEE SZ 2 LEFT TOMER PS COCR ([id number]) (AUTOREQ) - [id number] IMPLANTS COMP FEMORAL KNEESZ 2 LEFT TOMER PS COCR ([id number]) (AutoReq) MEDACT[employer] [place] - [place]ACTA [place] [id number] Left 1 Implanted AUGMENT FEM KNEE 12MM SIZE 3 DIST TI GMK ([id number]) (AUTOREQ) - [id number] IMPLANTS AUGMENT FEM [id number] SIZE 3 DIST TI GMK ([id number]) (AutoReq) [employer] [place] - [place] [id number] Left 1 Implanted AUGMENT FEM KNEE 12MM SIZE 3 DIST TI GMK ([id number]) (AUTOREQ) - [id number] IMPLANTS AUGMENT FEM [id number] SIZE 3 DIST TI GMK ([id number]) (AutoReq) [employer]ACT[employer] [place] - [place]ACT[place] [id number] Left 1 Implanted BASEPLATE TIBIAL SZ 2 LEFT TOMER COCR GMK ([id number]) (AUTOREQ) - [id number] IMPLANTS BASEPLATE TIBIAL SZ 2 LEFT TOMER COCR GMK ([id number]) (AutoReq) [employer] [place] - [place] [id number] Left 1 Implanted FEMORAL COMPONENT ADAPTER KNEE 3MM TOMER ([id number]) (AUTOREQ) - [id number] IMPLANTS FEMORAL COMPONENT ADAPTER KNEE 3MM TOMER (5350138) (AutoReq) [employer] [place] - [place]ACT[place] [id number] Left 1 Implanted FEMORAL COMPONENT ADAPTER KNEE 5MM TOMER (3152221) (AUTOREQ) - [id number] IMPLANTS FEMORAL COMPONENT ADAPTER KNEE 5MM TOMER ([id number]) (AutoReq) [employer] [place] - [place] [id number] Left 1 Implanted STEM EXT KNEE [id number] POR FLUTED COCR ([id number]) (AUTOREQ) - [id number] IMPLANTS STEM EXT KNEE [id number] POR FLUTED COCR ([id number]) (AutoReq) [employer] [place] - [place] [id number] Left 1 Implanted WEDGE FEM KNEE 8MM SIZE 3 DIST TI GMK ([id number]) (AUTOREQ) - [id number] IMPLANTS WEDGE FEM KNEE 8MM SIZE 3 DIST TI GMK ([id number]) (AutoReq) [employer]ACT[employer] [place] - [place]ACT[place] [id number] Left 1 Implanted INSERT TIBIAL 20MM SZ 2 FIX POLY GMK ([id number]) (AUTOREQ) - [id number] IMPLANTS INSERT TIBIAL 20MM SZ 2 FIX POLY GMK ([id number]) (AutoReq) [employer]ACT[employer] [place] - MEDACT[place] [id number] Left 1 Implanted documented in this encounter Plan of Treatment Upcoming Encounters Date Type Department Care Team (Late st Contact Info) Description 05/30/2024 10:00 AM EST Appointment Mammography/[place] [id number] Alicia Quinteros MD [facility] [place] [address] 08/11/2024 4:15 PM EST Office Visit Dermatology at [address] [address] Jhon Giron MD [address], [place]I [place] [address] 11/21/2024 2:00 PM EDT Office Visit Radiation Oncology at [address] [phone] Alicia Quinteros MD [facility] [place] [address] 10/06/2029 Hospital Encounter [place] [address] Al Mendez MD [facility] [place] [address] Scheduled Procedures Name Priority Associated Diagnoses Date/Ti [...] 02/15/2021 9:11 AM EDT RAPID COVID-19 PCR ([facility]/APD/[facility]H) Routine 02/15/2021 8:50 AM EDT MODIFIER,GMK REVISION KNEE,MEDACTA 02/15/2021 8:24 AM EDT Failed Left TKA Revise Knee Joint Replace, All Parts ([id number]) 02/15/2021 8:24 AM EDT Failed Left TKA POCT GLUCOSE Routine 02/15/2021 7:52 AM EDT TOTAL KNEE REVISION ARTHROPLASTY, COMPLETE Routine 02/15/2021 7:02 AM EDT IMPLANTABLE DEVICES SCAN 02/15/2021 12:00 AM EDT POCT URINE Routine 02/15/2021 documented in this encounter Results * POCT Glucose (02/16/2021 12:44 PM EDT) [facility] Glucose, POC 153 65 - 199 mg/dL [facility] Comment: Supplemental ranges: <140 mg/dL before meals <180 mg/dL all other times of the day Blood 02/16/2021 12:4 4 PM EDT 02/16/2021 12:44 PM EDT Al Mendez MD POINT OF CARE TEST O RDERABLES [facility] [place] [address] * (ABNORMAL) Differential, Automated (02/16/2021 5:06 AM EDT) [facility] Neutrophil % 87.3 % [facility] Neutrophil Absolute 9.13(H) 1.70 - 6.10 x10(3)/ L [facility] Lymph % 4.9 % [facility] Lymphocytes Abs 0.5(L) 0.9 - 3.2 x10(3)/ L [facility] Monocyte % 7.3 % [facility] Monocyte Abs 0.8 0.3 - 0.9 x10(3)/ L [facility] Eos % 0.0 % [facility] Eosinophils Abs 0.0 0.0 - 0.4 x10(3)/[facility] Basophil % 0.1 % [facility] Baso Absolute 0.0 0.0 - 0.1 x10(3)/[facility] Immature Gran % 0.40 % [facility] Comment: Immature granulocytes(IG's)percentage and absolute count will include metamyelocytes, myelocytes, and promyelocytes. Blood smears from CBCs yielding IG's will be scanned manually for concordance. If this scan disagrees with the automated IG or if promyelocytes are noted, a manual differential will be performed. Immature Gran Absolute 0.04 0.00 - 0.04 x10(3)/[facility] Blood 02/16/2021 5:06 AM EDT 02/16/2021 5:12 AM EDT Narrative Resulting Agency Comment Spec In Lab Tyshawn Borjas MD HEMATOLOGY ORDERABLE S [facility] [place] [address] * (ABNORMAL) Hemogram (02/16/2021 5:06 AM EDT) Pathologist [facility] White Blood Cell 10.4(H) 4.0 - 9.5 x10(3)/[facility] Red Blood Cell 3.70(L) 4.00 - 5.21 x10(6)/mc L [facility] Hemoglobin 10.2(L) 11.7 - 15.5 gm/dL [facility] Hematocrit 31.6(L) 35.7 - 45.8 % [facility] Mean Cell Volume 85.4 82.6 - 94.4 fL [facility] Mean Cell Hemoglobin 27.6 27.1 - 32.0 pg [facility] Mean Cell Hemoglobin Concentration 32.3 31.7 - 35.0 gm/dL [facility] Platelet 200 145 - 357 x10(3)/mc L [facility] RDW Standard Deviation 45.3 37.0 - 46.0 fL [facility] RDW coefficient of variation 14.5(H) 11.5 - 14.1 % [facility] Mean Platelet Volume 10.8 7.6 - 12.9 fL [facility] NRBC% auto 0.0 % [facility] NRBC Absolute 0.000 0.000 - 0.000 x10(3)/mc L [facility] Blood 02/16/2021 5:06 AM EDT 02/16/2021 5:12 AM EDT Narrative Resulting Agency Comment Spec In Lab Tyshawn Borjas MD HEMATOLOGY ORDERABLE S [facility] [place] [address] * Basic Metabolic Panel (non-fasting) (02/16/2021 5:06 AM EDT) Glucose 150 65 - 199 mg/dL [facility] Comment:Diabetes: >=200 mg/d L plus symptoms Blood Urea Nitrogen 14 8 - 18 mg/dL [facility] Creatinine 0.73 0.70 - 1.20 mg/dL [facility] Sodium 138 135 - 145 mmol/L [facility] Potassium 4.1 3.5 - 5.0 mmol/L [facility] Comment: Please note: ??Patients with WBC >100,000 may have falsely elevated Potassium levels. ??For accurate Potassium quantification in these patients send serum separator tube (gold top) for subsequent determinations. ??Contact the Clinical Chemistry Laboratory if there are any questions. Chloride 102 98 - 107 mmol/L [facility] Carbon Dioxide 27 22 - 31 mmol/L [facility] Anion Gap 9 5 - 15 mmol/L [facility] Calcium 9.3 8.5 - 10.5 mg/dL [facility] Est Glomerular Filtration Rate 93 >=60 mL/min/1. 73 m?? [facility] Comment: This patient? s estimated [...] In Lab Al Mendez MD CHEMISTRY ORDERABLES [facility] [place] [address] * XR Knee 1-2 Views Left (Generic) [...] who have questions please contact the health care clinician that requested your imaging first. ? Electronically signed by: Delores Corral MD, [facility] ([phone]), at 02/15/2021 2:07 PM Narrative 02/15/2021 2:07 [...] patients who have questions please contactthe health care clinician that requested your imaging first. Jason Rodrigez MD IMG DX ORDERABLES * Surgical Pathology Report (02/15/2021 9:27 AM EDT) Final Diagnosis [id number] ? Location: [facility]; [facility]; The signing pathologist has (i) examined the relevant preparation(s) for the specimen(s) and (ii) rendered or confirmed the diagnosis(es). . ?Surgical Pathology DIAGNOSIS A - Soft tissue, scar and synovium, left knee, excision: ??- Hyperplastic synovium with extensive prosthetic wear ?debris reaction, necrosis, and scar. ??- No significant acute inflammation is identified. Electronically signed by: ?Soha Bernal MD Verified: ??02/25/2021 16:11 ??Pathologist Performed at: ??-[facility] Dept. of Pathology, [place], [place] SPECIMEN(S) SUBMITTED A - Soft tissue, [...] notable for extensive villous excrescences. Sections/Process ing: Broker Assistant sections in 2 cassettes labeled A1-A2. ??ajw 02/25/2021 4:11 PM EDT [facility] SYNOVIUM BIOPSY SPECIMEN / Unknown 02/15/2021 9:27 AM EDT 02/15/2021 9:27 AM EDT Al Mendez MD PATHOLOGY/CYTOLOGY O RDERABLES [facility] [place] [address] * Specimen to Pathology (02/15/2021 9:27 AM EDT) AP Specimen 02/15/2021 9:27 AM EDT 02/15/2021 9:27 AM EDT Narrative [facility] - 02/15/2021 9:27 AM EDT Specimen requisition ordered. ??Separate Pathology report to follow Al Mendez MD PATHOLOGY/CYTOLOGY O RDERABLES Performing Organization Address City/[facility]/ZIP Co de Phone Number [facility] [place] [address] * Iron Stain, Body Fluid (02/15/2021 9:11 AM EDT) Iron Stain BF Type Knee fluid [facility] Body Fluid Iron Stain, Fld See Comment [facility] Comment:Knee fluid negative for hemosiderin. Knee Joint Fluid Other / Unknown 02/16/20 9:11 AM EDT 02/15/2021 9:17 AM EDT Narrative Resulting Agency Comment Spec In Lab Al Mendez MD HEMATOLOGY ORDERABLE S Performing Organization Address [facility]/ZIP Co de Phone Number [facility] [place] [address] * Anaerobic Culture (02/15/2021 9:11 AM EDT) Anaerobic Culture No anaerobic organisms isolated [facility] Joint Fluid STRUCTURE OF LEFT KNEE REGION / Unknown 02/15/2021 9:11 AM EDT 02/15/2021 9:23 AM EDT Narrative Resulting Agency Comment Spec In Lab Al Mendez MD MICROBIOLOGY - GENER AL ORDERABLES Performing Organization Address City/[facility]/ZIP Co de Phone Number [facility] [place] [address] * Joint Culture (02/15/2021 9:11 AM EDT) Joint Culture No growth at 14 days. [facility] Gram Stain Cytocentrifuge Gram Stain performed No Neutrophils seen. No microorganisms seen. [facility] Joint Fluid STRUCTURE OF LEFT KNEE REGION / Unknown 02/15/2021 9:11 AM EDT 02/15/2021 9:23 AM EDT Narrative Resulting Agency Comment Spec In Lab Al Mendez MD MICROBIOLOGY - GENER AL ORDERABLES [facility] [place] [address] * Cell Count Body Fluid Knee Joint Fluid (02/15/2021 9:11 AM EDT) Body Fluid Source Knee Fl MA [facility] Color, Fld [place] [facility] Appearance, Fld Slightly Cloudy [facility] WBC Count, Fld 358 /[facility] Comment: Guideline listed below apply to [...] 1005. Polymorphonuclear cells BF % 24 % [facility] Comment: Polymorphonuclear cell percent and absolute values may contain Neutrophils, Eosinophils, and Basophils. Body fluid smear will be scanned manually for concordance. Mononuclear cells BF % 76 % [facility] Comment: Mononuclear cell percent and absolute values may contain Lymphocytes and Monocytes. Body fluid smear will be scanned manually for concordance. Hemosiderin suspected-to be confirmed by iron stain. Polymorphonuclear cells BF ABS 87 /[facility] Comment: Polymorphonuclear cell percent and absolute values may contain Neutrophils, Eosinophils, and Basophils. Body fluid smear will be scanned manually for concordance. Mononuclear cells BF ABS 271 /[facility] Comment: Mononuclear cell percent and absolute values may contain Lymphocytes and Monocytes. Body fluid smear will be scanned manually for concordance. Knee Joint Fluid 02/15/2021 9:11 AM EDT 02/15/2021 9:17 AM EDT Narrative Resulting Agency Comment Spec In Lab Al Mendez MD BODY FLUIDS AND DELANEY CAVAZOS ORDERABLES [facility] [place] [address] * COVID-19 PCR (02/15/2021 8:50 AM EDT) SARS-CoV-2 RNA (Rapid) Not Detected Not Detected [facility] Comment: This result should be [...] using the Simplexa COVID-19 Direct Assay by [employer] as authorized by the FDA issued Emergency [...] Department of Pathology and Laboratory Medicine at [facility], certified under the Clinical Laboratory Improvement [...] fact sheets at the following FDA website: https://www.fda.gov/medical-devices/aqdsgjxhtbk-wlekwmc-7590-epklp-88-bztygazuv- use-a vroazffrofxkn-zcnirlv-pkkkqer/seelt-mufqpvxiqoc-lief SARS-CoV-2 Source [employer]ING [employer] Swab [facility] Nasopharyngeal Swab 02/16/20 8:50 AM EDT 02/15/2021 9:35 AM EDT Comment:Symptoms->Surveillan ce Narrative Resulting Agency Comment Spec In Lab Al Mendez MD MICROBIOLOGY - GENER AL ORDERABLES Performing Organization Address City/[facility]/ZIP Co de Phone Number [facility] [place] [address] * POCT Glucose (02/15/2021 7:52 AM EDT) Glucose, POC 116 65 - 199 mg/dL [facility] Comment: Supplemental ranges: <140 mg/dL before meals <180 mg/dL all other times of the day Blood 02/15/2021 7:52 AM EDT 02/15/2021 7:52 AM EDT Al Mendez MD POINT OF CARE TEST O RDERABLES Performing Organization Address City/[facility]/ZIP Co de Phone Number [facility] [place] [address] * SCAN DOC: IMPLANTABLE DEVICES (02/15/2021 12:00 AM EDT) Unknown MEDIA MGR SCAN EXT O RDR/RSLT * POCT urine (02/15/2021) POC Urine HCG Negative Negative - Negative POC Control Internal Controls Acceptable 02/15/2021 Al Mendez MD POINT OF CARE TEST O RDERABLES documented in this encounter Visit Diagnoses Not on filedocumented in this encounter Admitting Diagnoses Diagnosis Failed [...] Given 02/15/2021 10:46 PM EDT 40 mg BUpivacaine (pf) (Marcaine) (2.5 mg/mL) 0.25% injection ONCE PRN, Starting on Thu02/15/21 at 0902, Until 02/16/21 at 1703, Intra-Operative (Intra-Procedure), Routine Given 02/15/2021 11:00 AM EDT 50 mLs 19- Surgical Site Given 02/15/2021 9:02 AM EDT 30 mLs 19 - Surgical Site celecoxib (CeleBREX) capsule 200 mg 200 mg, Oral, 2 TIMES DAILY, First dose on Thu02/15/21 at 2100, Until Discontinued, Routine Given 02/16/2021 8:18 AM EDT 200 mg Given 02/15/2021 10:47 PM EDT 200 mg citalopram (CeleXA) tablet 30 mg 30 mg, Oral, EVERY MORNING, First dose on 02/16/21 at 0900, Until Discontinued, Routine Given 02/16/2021 8:19 AM EDT 30 mg cloNIDine (pf) (Duraclon) (100 mcg/mL) Epidural injection ONCE PRN, Starting on Thu02/15/21 at 1100, Until 02/16/21 at 1703, Intra-Operative (Intra-Procedure), Routine Given 02/15/2021 11:00 AM EDT 50 mcg 19- Surgical Site dextrose 10% infusion 250 mL, at 1,000 [...] for the duration of the active insulin. gabapentin (Neurontin) capsule 300 mg 300 mg, [...] 25 mg, Oral, DAILY, First dose on Sat /11/21 at 0900, Until Discontinued, Hold for systolic blood pressure less than 130, Routine Given 02/16/2021 8:19 AM EDT 25 mg insulin lispro (HumaLOG;Admelog) (100 unit/mL) subcutaneous [...] PRN, Starting on Thu02/15/21 at 1428, Until Thu02/16/21 at 1703, Pain, Routine Given 02/16/2021 10:38 AM EDT 15 mg Given 02/15/2021 10:55 PM EDT 15 mg ketorolac (Toradol) (30 mg/mL) injection ONCE PRN, Starting on Thu02/15/21 at 1100, Until Thu02/16/21 at 1703, Intra-Operative (Intra-Procedure), Routine Given 02/15/2021 11:00 AM EDT 30 mg 19- Surgical Site lamoTRIgine (LaMICtal) tablet 50 mg 50 mg, [...] Given 02/16/2021 8:18 AM EDT 20 mg ondansetron (pf) (Zofran) (2 mg/mL) injection [...] Recovery, Routine 1243 (Given - Provider: Carri Urbano RN)1258 (Given - Provider: Carri Urbano RN)1321 (Given - Provider: Vaishali Bolden, LUIS MANUEL) ketorolac (Toradol) (15 mg/mL) injection 15 mg 15 mg, Intravenous, EVERY 6 HOURS PRN, Starting on Thu02/15/21 at 1428, Until 02/16/21 at 1703, Pain, Routine 2255 (Given - Provider: Laina Vela LPN) 1038 (Given - Provider: Janeth Saravia, LUIS MANUEL) ketorolac (Toradol) (30 mg/mL) injection (CANCELED) ONCE [...] Day of Surgery (Day of Procedure), Routine 0743 (Given - Provider: Rosa Maria Lucas RN) [...] 0814 (Given - Provider: Rosa Maria Lucas RN)0817 (Given - Provider: Rosa Maria Lucas RN)0820 (Given - Provider: Rosa Maria Lucas RN)0822 (Given - Provider: Rosa Maria Lucas RN) [...] relieved., Routine 1444 (Given - Provider: Janeth Saravia, LUIS MANUEL)1907 (Given - Provider: Rachel Matute LPN)2320 (Given - Provider: Laina Vela LPN) 0818 (Given - Provider: Janeth Saravia, LUIS MANUEL)1207 (Given - Provider: Janeth Saravia RN) sodium [...] Last dose on Thu02/16/21 at 2100, Routine Followed by gabapentin (Neurontin) [...] PRN, Starting on Thu02/15/21 at 1301, Until Thu02/16/21 at 1703, Nausea, Vomiting, If multiple antiemetics are ordered, use ondansetron first. PO Preferred. If patient unable to take PO, may give IV if ordered. May repeat times one in 45 minutes if ineffective., Recovery (Recovery-Hospital Unit), Routine Or ondansetron (pf) (Zofran) (2 mg/mL) injection 4 mgJump to med 4 mg, Intravenous, EVERY 8 HOURS PRN, Starting on 02/15/21 at 1301, Until 02/16/21 at 1703, Nausea, May repeat times one in 30 minutes if ineffective. If multiple antiemetics are ordered, use ondansetron first, Recovery (Recovery-Hospital Unit) documented in this encounter Care Teams Freight Brakeman Relationship Specialty Start Date End Date Bhaskar Morales MD PCP - General Family Medicine 12/18/20 documented as of this encounter
--- OUTSIDE RECORDS SUMMARY | 2024-04-14 10:38 | XMS_ITS | Encounter Summary ---
[place] [address] Care Team Providers Care Computer Numerical Control Grinder Name Role Phone Bhaskar Morales MD Primary Care Provider [phone] Encounter Details Date Type Department Care Team (Late st Contact Info) Description 02/06/2021 Notes [place] [address] Laila Chavez A Social History Tobacco Use Types Packs/Day Years [...] as of this encounter Progress Notes * Laila Chavez A - 02/06/2021 9:26 AM EDT Study Title: Comparative Effectiveness of Pulmonary Embolism Prevention after hip and knee Replacement: Balancing Safety and Effectiveness. Principle Forestry Support Specialist: Dr. Geovanni Albarado #: [id number] Informed consent for the above entitled study was reviewed with subject -in detail. The details of the study, length of study, and risks were reviewed with subject. Upon review, subject verbalized adequate understanding of the protocol and signed the consent along with me. No study procedures were initiated prior to signing the consent. A copy was provided to subject, and the original consent will be kept with the study chart. Reviewed initial inclusion and exclusion, will continue to review medical history. Subject meets ALL of the inclusion criteria for entry into this clinical trial: 1) Males and females 21 years of age or older 2) Undergoing elective primary, revision, or second stage re-implantation total hip/knee replacement or uni-compartmental knee replacement or hip resurfacing arthoplasty 3) Patient has necessary mental capacity to participate and is able to comply with study protocol requirements 4) Patient is able to be randomized to at least two of the three study prophylaxis regimens 5) A test done on the day of surgery, or other criteria (i.e. Sex or reproductive potential) will be used to ensure the patient is not 6) Patent was approached, offered participation, and signed the consent form 7) Patient is willing to be randomized and participate in the study Subject does NOT meet any exclusion criteria for entry into this clinical trial: 1) Patients undergoing bilateral hip or knee replacement 2) Patient undergoing total hip or knee replacement who has been enrolled in this study for a priorhip or knee replacement. 3) Women who are or , as well as those of reproductive potential unless thereis a negative urine test on the day of surgery. 4) Patients on chronic (longer than the prior 6 months) anticoagulation other than with antiplatelet medications 5) Patient who is concurrently enrolled in another active interventional clinical trial testing a drug or intervention known or believed to interact with aspirin, warfarin, rivaroxaban. 6) Patients with documented gastrointestinal, cerebral, or other hemorrhage within 3 months of the operation 7) Patients with a known diagnosis of defective hemostasis and past history of clinical bleeding requiring transfusion and treatment. 8) Patients who have had an operative procedure involving the eye, ear, or central nervous system within one month 9) Patient with severe uncontrolled hypertension with systolic BP > 220mmHg and diastolic BP > 120mmHg 10) Patient with an absolute body weight of less than 41 kilograms (90.4 lbs) at baseline visit. 11) Vulnerable patient populations including prisoners and institutionalized individuals. Schedule of events were reviewed with the subject. Verbalized understanding of appointment dates and procedures, subject agrees to all. Encouraged to call with any questions/concerns. documented in this encounter Plan of Treatment Upcoming Encounters Date Type Department Care Team (Late st Contact Info) Description 05/30/2024 10:00 AM EST Appointment Mammography/[place] [address] Alicia Quinteros MD [facility] [place] [address] 08/11/2024 4:15 PM EST Office Visit Dermatology at [place] [address] [place] [address] Jhon Giron MD [address], [place] [address] 11/21/2024 2:00 PM EDT Office Visit Radiation Oncology at [address] [phone] Alicia Quinteros MD [facility] [place] [address] 10/06/2029 Hospital Encounter [place] [address] Al Mendez MD [facility] [place] [address] Scheduled Procedures Name Priority Associated Diagnoses Date/Ti me @TOTAL KNEE REVISION ARTHROP LASTY, COMPLETE (WRVU 27.11) Instability Right TKA MODIFIER,GMK REVISION KNEE,MEDACTA Instability Right TKA documented as of this encounter Visit Diagnoses Not on filedocumented in this encounter Care Teams Computer Numerical Control Grinder Relationship Specialty Start Date End Date Bhaskar Morales MD PCP - General Family Medicine 12/18/20 documented as of this encounter
--- OUTSIDE RECORDS SUMMARY | 2024-04-14 10:38 | XMS_ITS | Encounter Summary ---
Author Organization [facility] [place] [address] Care Team Providers Care Drycleaner Name Role Phone Avis Honeycutt LEVON Primary Care Provider [phone] Encounter Details Date Type Department Care Team (Late st Contact Info) Description 10/13/2018 Telephone [place] [address] Dago Paz MD [facility] [place] [address] Social History Tobacco Use Types Packs/Day Years [...] encounter Miscellaneous Notes * Telephone Encounter - Dago Paz MD - 10/13/2018 9:29 AM EDT FNA of right thyroid nodule returned: benign pathology Recommend 1 year followup with ultrasound Called to discuss but no answer. I had permission from patient to leave message on voicemail and I did so Mild subclinical hypothyroidism, recommend TSH/free T4 recheck in 4-6 months Endo secretaries, please mail patient slips for these labs, and place on list for followup October 2019with US. Thanks! documented in this encounter Plan of Treatment Upcoming Encounters Date Type Department Care Team (Late st Contact Info) Description 05/30/2024 10:00 AM EST Appointment Mammography/[place] [address] Ailcia Quinteros MD [facility] [place] [address] 08/11/2024 4:15 PM EST Office Visit Dermatology at [place] [address] [place] [phone] Jhon Giron MD [address], [place] [address] 11/21/2024 2:00 PM EDT Office Visit Radiation Oncology at [address] [phone] Alicia Quinteros MD [facility] [place] [address] 10/06/2029 Hospital Encounter [place] [phone] Al Mendez MD [facility] [place] [address] Scheduled Procedures Name Priority Associated Diagnoses Date/Ti me @TOTAL KNEE REVISION ARTHROP LASTY, COMPLETE (WRVU 27.11) Instability Right TKA MODIFIER,GMK REVISION KNEE,MEDACTA Instability Right TKA documented as of this encounter Visit Diagnoses Diagnosis Abnormal thyroid function test Nonspecific abnormal results of thyroid function study documented in this encounter Care Teams Drycleaner Relationship Specialty Start Date End Date Avis Honeycutt, LEVON [address] [place] [address] PCP - General Family Medicine 05/27/18 12/17/20 documented as of this encounter
--- OUTSIDE RECORDS SUMMARY | 2024-04-14 10:38 | XMS_ITS | Encounter Summary ---
Author Organization [facility] [place] [address] Care Team Providers Care Director Of Government Sales Name Role Phone Bhaskar Morales MD Primary Care Provider [phone] Reason for Visit * Reason Comments Follow-up PRE OP 02/15/2021 LEF T TKA REV Encounter Details Date Type Department Care Team (Late st Contact Info) Description 02/06/2021 11:00 AM EDT [place] [phone] Constantino Larson MD [facility] [place] [address] Preop examination; Presence of left artificial knee joint; Knee dislocation, left, sequela; Adult BMI 50.0-59.9 kg/sq m; DANILO treated with BiPAP; Essential hypertension Social History Tobacco Use Types Packs/Day Years [...] Sign Reading Time Taken Comments Blood Pressure 134/67 02/06/2021 11:07 AM EDT from earlier appt Pulse 80 02/06/2021 11:07 AM EDT Temperature - - Respiratory Rate - - Oxygen Saturation 97% 02/06/2021 11: 07 AM EDT Inhaled Oxygen Concentration - - Weight 130.6 kg (288 lb) 02/06/2021 11: 07 AM EDT Height 154.9 cm (5' 1) 02/06/2021 11:0 7 AM EDT Body Mass Index 54.42 02/06/2021 11:07 AM EDT documented in this encounter Progress Notes * Constantino Larson MD - 02/06/2021 11:00 AM EDT Images from the original note were not included. CC: Quin Santana is a 55 y.o. female with the following problems and medications that is being seen in the clinic for consultation at the request of her surgeon Dr. Al Mendez for preoperative risk stratification and management recommendations in anticipation of left total knee revision arth roplasty for failed dislocated TKA. HPI - Pain - Location - left knee Quality - aching, Onset - gradual, Duration - several months, Intensity - mild Aggravating factors - standing, walking, stepping, bending, Alleviating factors - NSAID, APAP, rest, topical, Associated - lost weight 22 lbs in 6 weeks, with intent, A1c trended down to6.6 from 7.1, taking metformin once daily. Had TKA in Apr 2015 and did very well without incidents during recovery and had other TKA in 2018 and did well with that too, she got diagnosis of breast cancer about 6 months after this. She had management of her breast cancer here at . She was doing pool therapy in July this year and was doing squats and she felt her knee shift, she was able to tolerate the discomfort and kept walking but at end of October she got into see Dr. Calix and there was a surprising finding on Xray of dislocated TKA. She was referred here for TKA revision. Patient Active Problem List Diagnosis Code ??? [...] G47.00 ??? Obstructive sleep apnea syndrome G47.33 Current Outpatient Medications Medication Sig Dispense Refill ??? metFORMIN (Glucophage) 500 mg Tablet TAKE ONE TABLET BY MOUTH EVERY DAY ??? lamoTRIgine (LaMICtal) 25 mg Tablet Take 50 mg by mouth 2 times daily. ??? atorvastatin (Lipitor) 40 mg Tablet Take 40 mg by mouth nightly. ??? docosahexaenoic acid/epa (FISH OIL ORAL) Take 1 capsule by mouth nightly. ??? citalopram (CeleXA) 20 mg Tablet Take 30 mg by mouth every morning. ??? naproxen sodium (ANAPROX) 220 mg Tablet Take 220 mg by mouth as needed. ??? Vitamin D 25 mcg (1,000 unit) Tablet TK 1 T PO D ??? BLACK COHOSH ORAL Take by mouth. ??? ALPRAZolam (XANAX) 0.5 mg Tablet Take 0.5 mg by mouth daily as needed. 0 ??? benazepril (LOTENSIN) 10 mg Tablet Take 20 mg by mouth daily. 0 ??? cetirizine (ZYRTEC) 10 mg Tablet Take 10 mg by mouth daily. 0 ??? EPINEPHrine 0.3 mg/0.3 mL Auto-Injector Inject 0.3 mg into the muscle as needed. 0 ??? hydroCHLOROthiazide (HYDRODIURIL) 50 mg Tablet Take 25 mg by mouth daily. 0 ??? omeprazole (PRILOSEC) 20 mg Capsule, Delayed Release(E.C.) Take 20 mg by mouth daily. 0 ??? calcium-vitamin D3 600 mg(1,500mg) -200 unit Tablet Take 1,200 mg by mouth daily. ??? multivitamin (THERAGRAN) Tablet Take 1 tablet by mouth daily. ??? budesonide-formoterol (SYMBICORT) 80-4.5 mcg/actuation HFA Aerosol Inhaler Inhale 2 puffs into the lungs. ??? albuterol 90 mcg/actuation HFA Aerosol Inhaler Inhale 2 puffs into the lungs every 4 hours as needed for Wheezing. Use with spacer Current Facility-Administered Medications Medication Dose Route Frequency Provider Last Rate Last Admin ??? mupirocin (Bactroban) 2 % ointment 1 each 1 each Topical (Top) BID Al Mendez MD 1 eachat 02/06/21 0858 Social History Occupational History ??? 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 Smoking status: Never Smoker ??? Smokeless tobacco: Never Used Vaping Use ??? Vaping Use: Never used Substance and Sexual Activity ??? Alcohol use: Never ??? Drug use: Never ??? Sexual activity: Not on file Family History Problem Relation Age of Onset ??? Prostate Cancer Father 74 ??? Breast Cancer Neg Hx ??? Ovarian Cancer Neg Hx Review of Systems Constitutional: Negative for chills, diaphoresis and fever. Respiratory: Negative for cough, shortness of breath and wheezing. RAD stable on Symbicort and has not needed albuterol rescue in a while. Diligent with BiPAP use. Cardiovascular: Negative for chest pain, palpitations and orthopnea or PND. Gastrointestinal: Negative for abdominal pain, anal bleeding and blood in stool. Endocrine: Negative for polydipsia and polyphagia. Genitourinary: Negative for dysuria, flank pain and hematuria. Skin: Negative for pallor and rash. Allergic/Immunologic: Does have environmental allergies and denies immunocompromised state. Neurological: Negative for presyncope, paresthesia, syncope and speech difficulty. Hematological: Negative for adenopathy. Does not bruise/bleed easily. Denies melena, nose or gum bleed. Psychiatric/Behavioral: Negative for confusion, decreased concentration and reports mood is stable on current regime, takes Black cohosh for perimenopausal symptoms. Allergies: Allergies Allergen Reactions ??? Hymenoptera Allergenic Extract Anaphylaxis Stinging insects ??? Venom-Honey Bee Other reaction(s): Anaphylaxsis ??? Insect Venom ??? Lactose ??? Levonorgestrel-Ethinyl Estrad ??? Penicillins [facility] Penicillin Allergy Risk Assessment 02/06/2021: Low risk penicillin allergy. OK to receive full dose of cefazolin, cefuroxime, or any 3rd or 4th+ generation cephalosporin. [facility] EMERGENCY MEDICINE PHYSICIAN to place Allergy referral for formal penicillin allergy evaluation. [facility] ??? Poison Dalia Extract Physical Exam: Last Set of Vitals and Range over past 24 hours: Last value Range last 24 hrs Heart Rate Heart Rate: 80 Heart Rate: [80] Blood Pressure BP: 134/67 (from earlier appt) BP: (134)/(67) SpO2 SpO2: 97 % SpO2: [97 %] Estimated body mass index is 54.42 kg/m?? as calculated from the following: Height as of this encounter: 154.9 cm (5' 1). Weight as of this encounter: 130.6 kg (288 lb). Physical Exam Constitutional: She is oriented to person, place, and time. She appears well- developed. No distress. HENT: Head: Normocephalic and atraumatic. Eyes: Right eye exhibits no discharge. Left eye exhibits no discharge. No scleral icterus. Neck: Neck supple. No JVD present. Cardiovascular: Normal rate, regular rhythm and normal heart sounds. Exam reveals no gallop and no friction rub. No murmur heard. Pulmonary/Chest: Effort normal and breath sounds normal. No stridor. No respiratory distress. She has no wheezes. She has no rales. She exhibits no spinal tenderness. Abdominal: Soft. Bowel sounds are normal. She exhibits no percussed HSM. There is no CVA tenderness. There is no rebound and no guarding. Musculoskeletal: She exhibits no edema. She is ambulatory without aide and has no drift with extension at the left knee but has limited ROM. Neurological: She is alert and oriented to person, place, and time. She displays no tremors at restor on intent. Skin: Skin is warm and dry. She is not diaphoretic. No pallor. Psychiatric: She has a normal mood and affect. Her behavior is normal. Judgment and thought contentnormal. Lab Results Component Value Date WBC 6.0 02/06/2021 RBC 4.48 02/06/2021 HGB 12.0 02/06/2021 HCT 37.8 02/06/2021 MCV 84.4 02/06/2021 MCH 26.8 (L) 02/06/2021 MCHC 31.7 02/06/2021 PLATELET 238 02/06/2021 RDWCV 14.6 (H) 02/06/2021 Lab Results Component Value Date NA 140 02/06/2021 K 4.3 02/06/2021 CL 101 02/06/2021 CO2 29 02/06/2021 BUN 24 (H) 02/06/2021 CREATININE 0.85 02/06/2021 GLUCOSE 118 02/06/2021 CALCIUM 10.7 (H) 02/06/2021 ESTGFR 77 02/06/2021 Lab Results Component Value Date PT 12.1 02/06/2021 INR 1.1 02/06/2021 PTT 35 02/06/2021 Lab Results Component Value Date CRP <3.0 12/26/2020 SEDRATE 38 12/26/2020 Estimated Creatinine Clearance: 95.5 mL/min (based on SCr of 0.85 mg/dL). EKG (image reviewed): normal EKG, normal sinus rhythm. Xray - dislocated left TKA A/P 1. Preop examination 2. Presence of left artificial knee joint 3. Knee dislocation, left, sequela 4. Adult BMI 50.0-59.9 kg/sq m 5. DANILO treated with BiPAP 6. Essential hypertension She does note her left knee impairing and elects to proceed with the TKA revision. I reviewed the association of DANILO with perioperative complications and suboptimal outcomes of arthroplasty and reiterated continued BiPAP compliance. This additional risk is NOT incorporated into theestimate below based on NSQIP methodology. She is keen on continuing her lifestyle measures to address her BMI and is successfully using Weight Watchers. Her RAD has been stable. Major Risk Factor per the Revised Cardiac Risk Index (Bold if present) - There is no history of CAD, CHF, CVA or TIA, DM2 on insulin, or a Creatinine >2 Risk diagnosis for MACE (major adverse cardiovascular event = Myocardial infarction, pulmonary edema, ventricular fibrillation, primary cardiac arrest, or complete heart block.) : Low <1% . 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 ARISCAT/CANET Score - estimates the risk of postoperative pulmonary complications as being low ~3.5%. Per the ACS NSQIP calculator I estimated the following. Patient instructions: Bring albuterol and BiPAP to surgery. Stop Black cohosh today, stop fish oil tomorrow. Take Symbicort, citalopram, Lamictal, cetirizine, omeparzole them morning of surgery. RECOMMENDATION for Postoperative Care: Continue BiPAP Continue Symbicort, citalopram, Lamictal, cetirizine, statin, albuterol, benazepril (hold if SBP<120), HCTZ (hold if SBP<130), calcium and vitamin D Resume metformin FSBS prn hypoglycemic symptom or sign documented in this encounter Plan of Treatment Upcoming Encounters Date Type Department Care Team (Late st Contact Info) Description 05/30/2024 10:00 AM EST Appointment Mammography/[place] [phone] Alicia Quinteros MD [facility] [place] [address] 08/11/2024 4:15 PM EST Office Visit Dermatology at [address] [phone] Jhon Giron MD [address] [place] [address], [place] [address] 11/21/2024 2:00 PM EDT Office Visit Radiation Oncology at [address] [phone] Alicia Quinteros MD [facility] [place] [address] 10/06/2029 Hospital Encounter [place] [phone] Al Mendez MD [facility] [place] [address] Scheduled Procedures Name Priority Associated Diagnoses Date/Ti me @TOTAL KNEE REVISION ARTHROP LASTY, COMPLETE (WRVU 27.11) Instability Right TKA MODIFIER,GMK REVISION KNEE,MEDACTA Instability Right TKA documented as of this encounter Visit Diagnoses Diagnosis Preop examination Preoperative examination, unspecified Presence of left artificial knee joint Knee joint replacement by other means Knee dislocation, left, sequela Adult BMI 50.0-59.9 kg/sq m Body Mass Index 50.0-59.9, adult DANILO treated with BiPAP Essential hypertension Unspecified essential hypertension documented in this encounter Care Teams Director Of Government Sales Relationship Specialty Start Date End Date Bhaskar Morales MD PCP - General Family Medicine 12/18/20 documented as of this encounter
--- OUTSIDE RECORDS SUMMARY | 2024-04-14 10:38 | XMS_ITS | Encounter Summary ---
[place] [address] Care Team Providers Care Supervisor Force Adjustment Name Role Phone Bhaskar Morales MD Primary Care Provider [phone] Encounter Details Date Type Department Care Team (Late st Contact Info) Description 02/06/2021 Notes Only [place] [address] Berenice Marie Social History Tobacco Use Types Packs/Day Years [...] as of this encounter Progress Notes * Berenice Marie - 02/06/2021 12:53 PM EDT Study Title: Comparative Effectiveness of Pulmonary Embolism Prevention after hip and knee Replacement: Balancing Safety and Effectiveness. Principle Child Care Counselor: Dr. Geovanni Albarado #: [id number] Subject #: [id number] Subject has been randomized to arm C for the above named clinical trial. Arm C (Rivaroxaban) orders to be placed while in-patient. Note submitted by Berenice Marie, Clinical Research Coordinator. documented in this encounter Plan of Treatment Upcoming Encounters Date Type Department Care Team (Late st Contact Info) Description 05/30/2024 10:00 AM EST Appointment Mammography/[place] [address] Alicia Quinteros MD [facility] [place] [address] 08/11/2024 4:15 PM EST Office Visit Dermatology at [place] [address] [place] [phone] Jhon Giron MD [address], [place] [address] 11/21/2024 2:00 PM EDT Office Visit Radiation Oncology at [address] [phone] Alicia Quinteros MD [facility] [place] [address] 10/06/2029 Hospital Encounter [place] [address] Al Mendez MD [facility] [place] [address] Scheduled Procedures Name Priority Associated Diagnoses Date/Ti me @TOTAL KNEE REVISION ARTHROP LASTY, COMPLETE (WRVU 27.11) Instability Right TKA MODIFIER,GMK REVISION KNEE,MEDACTA Instability Right TKA documented as of this encounter Visit Diagnoses Not on filedocumented in this encounter Care Teams Supervisor Force Adjustment Relationship Specialty Start Date End Date Bhaskar Morales MD PCP - General Family Medicine 12/18/20 documented as of this encounter
--- OUTSIDE RECORDS SUMMARY | 2024-04-14 10:38 | XMS_ITS | Encounter Summary ---
Author Organization [facility] [place] [address] Care Team Providers Care Radio Electronics Officer Name Role Phone Avis Honeycutt APRN Primary Care Provider [phone] Encounter Details Date Type Department Care Team (Late Contact Info) Description 10/19/2018 Ancillary Procedure Radiology Library at [facility] [place] [address] Alicia Quinteros MD [facility] [place] [address] Social History Tobacco Use Types Packs/Day Years [...] 05/30/2024 10:00 AM EST Appointment Mammography/DXA at [facility] [place] [phone] Alicia Quinteros MD [facility] [place] [address] 08/11/2024 4:15 PM EST Office Visit Dermatology at [place] [address] [place] [phone] Jhon Giron MD [address], [place] [address] 11/21/2024 2:00 PM EDT Office Visit Radiation Oncology at [address] [phone] Alicia Quinteros MD [facility] [place] [address] 10/06/2029 Hospital Encounter [place] [address] Al Mendez MD [facility] [place] [address] Scheduled Procedures Name Priority Associated Diagnoses Date/Ti me @TOTAL KNEE REVISION ARTHROP LASTY, COMPLETE (WRVU 27.11) Instability Right TKA MODIFIER,GMK REVISION KNEE,MEDACTA Instability Right TKA documented as of this encounter Procedures Procedure Name Priority Date/Time Associated Diagnosis Comments FILM LIBRARY STORAGE ONLY CT CHEST Routine 10/19/2018 12:00 AM EDT documented in this encounter Results * Film Library- Storage Only CT Chest (10/19/2018 12:00 AM EDT) Narrative [facility] - 10/20/2018 9:07 PM EDT This exam is auto-finalizing. It's purpose is for storage only. Alicia Quinteros MD IMG FILM LIBRARY ORD ERABLES [place], [place] documented in this encounter Visit Diagnoses Not on filedocumented in this encounter Care Teams Radio Electronics Officer Relationship Specialty Start Date End Date Avis Honeycutt, QUARTZ MOUNTER [address] [place] [address] PCP - General Family Medicine 05/27/18 12/17/20 documented as of this encounter
--- OUTSIDE RECORDS SUMMARY | 2024-04-14 10:38 | XMS_ITS | Encounter Summary ---
[place] [address] Care Team Providers Care Leno Sewer Name Role Phone Avis Honeycutt LEVON Primary Care Provider [phone] Reason for Visit * Reason Onset Date Comments Other 10/27/2018 Encounter Details Date Type Department Care Team (Late st Contact Info) Description 10/27/2018 Telephone Hematology [place] [phone] Alicia Quinteros MD [facility] [place] [address] Other Social History Tobacco Use Types Packs/Day [...] Telephone Encounter - Alicia Quinteros MD - 10/27/2018 11:40 AM EDT I returned Quin's call back returning my call; these calls to discuss result of 10/19/18 CT chest; no answer, left VM w/contact info. documented in this encounter Plan of Treatment Upcoming Encounters Date Type Department Care Team ([facility] Contact Info) Description 05/30/2024 10:00 AM EST Appointment Mammography/[place] [address] Alicia Quinteros MD [facility] [place] [address] 08/11/2024 4:15 PM EST Office Visit Dermatology at [place] [address] [place] [phone] Jhon Giron MD [address], [place] [address] 11/21/2024 2:00 PM EDT Office Visit Radiation Oncology at [address] [phone] Alicia Quinteros MD [facility] [place] [address] 10/06/2029 Hospital Encounter [place] [phone] Al Mendez MD [facility] [place] [address] Scheduled Procedures Name Priority Associated Diagnoses Date/Ti me @TOTAL KNEE REVISION ARTHROP LASTY, COMPLETE (WRVU 27.11) Instability Right TKA MODIFIER,GMK REVISION KNEE,MEDACTA Instability Right TKA documented as of this encounter Visit Diagnoses Diagnosis Malignant neoplasm of upper-outer quadrant of left female breast, unspecified estrogen receptor status documented in this encounter Care Teams Leno Sewer Relationship Specialty Start Date End Date Avis Honeycutt, LEVON [address] [place] [address] PCP - General Family Medicine 05/27/18 12/17/20 documented as of this encounter
--- OUTSIDE RECORDS SUMMARY | 2024-04-14 10:38 | XMS_ITS | Encounter Summary ---
Author Organization [facility] [place] [address] Care Team Providers Care Accounts Payable Lead Name Role Phone Avis Honeycutt LEVON Primary Care Provider [phone] Encounter Details Date Type Department Care Team (Late Contact Info) Description 05/21/2020 Telephone [place] [phone] Rivera Dudley Social History Tobacco Use Types Packs/Day Years [...] 05/30/2024 10:00 AM EST Appointment Mammography/[place] [phone] Alicia Quinteros MD [facility] [place] [address] 08/11/2024 4:15 PM EST Office Visit Dermatology at [address] [place] [address] Jhon Giron MD [address], [place] [address] 11/21/2024 2:00 PM EDT Office Visit Radiation Oncology at [address] [phone] Alicia Quinteros MD [facility] [address] [place] [address] 10/06/2029 Hospital Encounter [place] [phone] Al Mendez MD [facility] DR [place]THOP[place] [address] Scheduled Procedures Name Priority Associated Diagnoses Date/Ti me @TOTAL KNEE REVISION ARTHROP LASTY, COMPLETE (WRVU 27.11) Instability Right TKA MODIFIER,GMK REVISION KNEE,MEDACTA Instability Right TKA documented as of this encounter Visit Diagnoses Not on filedocumented in this encounter Care Teams Accounts Payable Lead Relationship Specialty Start Date End Date Avis Honeycutt APRN [address] [place] [address] PCP - General Family Medicine 05/27/18 12/17/20 documented as of this encounter
--- OUTSIDE RECORDS SUMMARY | 2024-04-14 10:38 | XMS_ITS | Encounter Summary ---
[place] [address] Care Team Providers Care Body Straightener Name Role Phone HaseebAvis collins LEVON Primary Care Provider [phone] Encounter Details Date Type Department Care Team (Late st Contact Info) Description 12/24/2018 Telephone Hematology [place] [phone] Anabel Sanchez LGC [facility] HEMATOLOGY/[place] [address] Social History Tobacco Use Types Packs/Day Years [...] encounter Miscellaneous Notes * Telephone Encounter - Anabel Sanchez LGC - 12/24/2018 1:38 PM EDT Left message asking Quin to call me back to go over her genetic test results. documented in this encounter Plan of Treatment Upcoming Encounters Date Type Department Care Team (Late st Contact Info) Description 05/30/2024 10:00 AM EST Appointment Mammography/[place] [address] Alicia Quinteros MD [facility] [place] [address] 08/11/2024 4:15 PM EST Office Visit Dermatology at [place] [address] [phone] Jhon Giron MD [address], [place] [address] 11/21/2024 2:00 PM EDT Office Visit Radiation Oncology at [address] [phone] Alicia Quniteros MD [facility] [place] [address] 10/06/2029 Hospital Encounter [place] [address] Al Mendez MD [facility] [place] [address] Scheduled Procedures Name Priority Associated Diagnoses Date/Ti me @TOTAL KNEE REVISION ARTHROP LASTY, COMPLETE (WRVU 27.11) Instability Right TKA MODIFIER,GMK REVISION KNEE,MEDACTA Instability Right TKA documented as of this encounter Visit Diagnoses Not on filedocumented in this encounter Care Teams Body Straightener Relationship Specialty Start Date End Date Avis Honeycutt APRN [address] [place] [address] PCP - General Family Medicine 05/27/18 12/17/20 documented as of this encounter
--- OUTSIDE RECORDS SUMMARY | 2024-04-14 10:38 | XMS_ITS | Encounter Summary ---
[place] [address] Care Team Providers Care Head Nurse Name Role Phone Avis Honeycutt APRN Primary Care Provider [phone] Encounter Details Date Type Department Care Team (Late Contact Info) Description 10/13/2018 Orders Only Radiation Oncology at [address] [phone] Alicia Quinteros MD [facility] [place] [address] Lung nodules Social History Tobacco Use Types Packs/Day Years [...] 05/30/2024 10:00 AM EST Appointment Mammography/[place] [address] Alicia Quinteros MD [facility] [place] [address] 08/11/2024 4:15 PM EST Office Visit Dermatology at [place] [address] [place] [phone] Jhon Giron MD [address], [place] [address] 11/21/2024 2:00 PM EDT Office Visit Radiation Oncology at [address] [phone] Alicia Quinteros MD [facility] [place] [address] 10/06/2029 Hospital Encounter [place] [address] Al Mendez MD [facility] [place] [address] Scheduled Procedures Name Priority Associated Diagnoses Date/Ti me @TOTAL KNEE REVISION ARTHROP LASTY, COMPLETE (WRVU 27.11) Instability Right TKA MODIFIER,GMK REVISION KNEE,MEDACTA Instability Right TKA documented as of this encounter Visit Diagnoses Diagnosis Lung nodules Other nonspecific abnormal finding of lung field documented in this encounter Care Teams Head Nurse Relationship Specialty Start Date End Date Avis Honeycutt, LEVON [address] [place] [address] PCP - General Family Medicine 05/27/18 12/17/20 documented as of this encounter
--- OUTSIDE RECORDS SUMMARY | 2024-04-14 10:38 | XMS_ITS | Encounter Summary ---
[place] [address] Care Team Providers Care Meteorologist In Charge Name Role Phone WilfredoAvis ortiz LEVON Primary Care Provider [phone] Reason for Visit * Reason Comments Radiation Follow-up breast cancer Encounter Details Date Type Department Care Team (Late st Contact Info) Description 04/22/2019 2:30 PM EST Office Visit Radiation Oncology at [address] [phone] Torri Leal [address] RADIATION ONCOLOGY [place], [place] [phone] Ductal carcinoma in situ (DCIS) of left breast; Pulmonary nodules Social History Tobacco Use Types Packs/Day [...] Sign Reading Time Taken Comments Blood Pressure 135/79 04/22/2019 2:27 PM EST Pulse 82 04/22/2019 2:27 PM EST Temperature 36.9 ??C (98.4 ??F) 04/22/2019 2:27 PM ES T Respiratory Rate 18 04/22/2019 2:27 PM EST Oxygen Saturation 99% 04/22/2019 2:27 PM EST Inhaled Oxygen Concentration - - Weight 128.1 kg (282 lb 8 oz) 04/22/2019 2:27 PM EST Height 154.9 cm (5' 1) 04/22/2019 2:27 PM EST Body Mass Index 53.38 04/22/2019 2:27 PM EST documented in this encounter Progress Notes * Torri Leal, [employer] OFFICER - 04/22/2019 2:30 PM EST Images from the original note were not included. Patient ID: Quin Santana is a 53 y.o. female who completed xrt on 09/20/18 for breast ca, L, DCIS, gr 2, ER+LA+, 3.2 cm, +necrosis, s/p lumpectomy. Quin was treated to a dose of 52.56 Gy. She is noton hormone therapy. She is in clinic for scheduled followup. HPI 52 y/o f who presented w/L breast abnlty on screening mmg. ?? DH Interp 04/07/18 B screening mmg, 04/20/18 B dx'ic mmgs, 04/20/18 B breast US: Suspicious pleomorphic calcs in linear distribution L breast @ 2:00, middle third, 6 cm from nipple. R breast nl. ?? 05/10/18 core needle bxs microcalcs @ 2:00 in L breast, 5.7 cm from nipple. ?? Path: DCIS, ER+LA+. ?? 05/27/18 MRI B breasts: Bx proven DCIS from 2.1 x 0.8 x 0.8 cm area of nonmass- like enhancement in L breast @ 2:00, 5.5 cm from nipple. R breast nl. No adenopathy. ?? 06/09/[address] Zee showed no breast mass/adenopathy. ?? 06/24/18 NLOC L breast lumpectomy. Specimen mmg. ?? Path: DCIS, 32 mm, gr 2, + necrosis, RM neg, closest RM > 2 mm, pTis. Radiation therapy Treatment was given from 08/23/18 to 09/20/18. ?? 42.56 Gy in 16 fxs was given to L breast, followed by volume reduction & 10 Gy/4 fxs to lumpectomy bed, boosting lumpectomy bed to 52.56 Gy/20 fxs. 6 & 10 MV Xray external beam with free breathing 3D xrt used throughout treatment ? On December 15, 2018, Quin underwent genetic testing for a hereditary predisposition to common hereditary cancers, including breast, gynecologic and gastrointestinal. Following are the results of this test. Result: [facility] Common Hereditary Cancers Panel showed no mutation was detected Treatment summary BREAST CANCER NOTES 04/28/2019 Method of Cancer Detection abnormal mammogram of the left breast Menopausal Status at Diagnosis Valeria-menopausal Date of Diagnostic Biopsy 05/10/2018 Local Surgery Lumpectomy done by Dr Zee Axillary Management MRI of breast showed no adenopathy Total Number of Nodes Removed 0 Date of Last Surgical Procedure 06/24/2018 Histology DCIS Tumor Staging from Staging System TisN0 Size of Primary Malignancy 3.2 cm Grade intermediate Margin negative ER positive LA positive BRCA Testing 12/15/2018 [facility] Common Hereditary Cancers Panel showed no mutation was detected Dates of radiation therapy 08/23/2018 to 09/20/2018 Radiation [place] Protocol Radiation Boost yes Total Dosage of Radiation 52.56 [address] therapy [address] with Dr Kevon Jeong--not hormone therapy started Surveillance CT of chest for treatment plannin. Limited CT for treatment planning. 2. 3.9 cm fluid collection within the left breast likely represents a seroma. 3. UNEXPECTED FINDING of two sub-5 mm pulmonary nodules. These are more likely to be benign intrapulmonary lymph nodes than metastases, however, in this patient with history of breast cancer recommend follow-up low-dose, noncontrast CT of the chest in 3 months. 4. UNEXPECTED FINDING of a 1 cm hypodense lesion in the right thyroid lobe. Recommend ultrasound correlation for better characterization and to exclude neoplasm. 5. Mild evidence of coronary artery atherosclerotic calcifications. This is remarkable considering the patient's young age and gender. 10/20/2018--CT chest-- 4 mm right middle lobe nodule, and 3 mm left lower lobe nodule. Left breast seroma Other Thyroid nodule 09/03/2018-- thyroid ultrasound Consult with endocrinology Surveillance mammogram Needs to be scheduled Patient Active Problem List Diagnosis Code ??? Ductal carcinoma in situ (DCIS) of left breast D05.12 Past Surgical History: Procedure Laterality Date ??? BREAST REDUCTION SURGERY Bilateral 1995 ??? KNEE SURGERY Bilateral ??? MAMMO STEREOTACTIC BIOPSY LEFT N/A 05/10/2018 Mammo Stereotactic Biopsy Left 05/10/2018 Jinny Gutierrez MD [facility] RAD MAMMOGRAPHY ??? PRO MASTECTOMY, PARTIAL Left 06/24/2018 MASTECTOMY PARTIAL (WRVU 10.13) performed by Fracnes Zee MD at [facility] MAIN OR Allergies Allergen Reactions ??? Hymenoptera Allergenic Extract Anaphylaxis Stinging insects ??? Penicillins Medications 04/22/19 1438 Medication Sig Taking? BLACK COHOSH ORAL Take by mouth. Yes ALPRAZolam (XANAX) 0.5 mg Tablet Take 0.5 mg by mouth daily as needed. Yes atorvastatin (LIPITOR) 40 mg Tablet Take 40 mg by mouth daily. Yes benazepril (LOTENSIN) 10 mg Tablet Take 20 mg by mouth daily. Yes cetirizine (ZYRTEC) 10 mg Tablet Take 10 mg by mouth daily. Yes FLUoxetine 60 mg Tablet Take 60 mg by mouth daily. Yes hydroCHLOROthiazide (HYDRODIURIL) 50 mg Tablet Take 25 mg by mouth daily. Yes omeprazole (PRILOSEC) 20 mg Capsule, Delayed Release(E.C.) Take 20 mg by mouth daily. Yes calcium-vitamin D3 600 mg(1,500mg) -200 unit Tablet Take 1,200 mg by mouth daily. Yes multivitamin (THERAGRAN) Tablet Take 1 tablet by mouth daily. Yes budesonide-formoterol (SYMBICORT) 80-4.5 mcg/actuation HFA Aerosol Inhaler Inhale 2 puffs into the lungs. Yes fish oil-omega-3 fatty acids 500 mg Capsule Take 120 mg by mouth. Yes albuterol 90 mcg/actuation HFA Aerosol Inhaler Inhale 2 puffs into the lungs every 4 hours as needed for Wheezing. Use with spacer Yes EPINEPHrine 0.3 mg/0.3 mL Auto-Injector Inject 0.3 mg into the muscle as needed. 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 She has been there for the last seven years. Pt has support from her family and friends. 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 She has medical coverage through [employer] of [place]. Pt is not concerned about finances. Tobacco/drug/alcohol history: Pt states she does not drink or smoke. Advance Directives: Pt has not completed advance directives and was given information and forms to do so. Pt was told that the Shared Decision Making Department could help her to complete her advancedirectives. Pt was asked to provide copies of her advance directives if she completes them on her own so they can be scanned into her medical record. Adjustment to illness/Mental Health Concerns: Pt states she feels less anxious since completing hertreatment and getting negative genetic testing. She does meet with a therapist regularly. She has ahistory of depression and is taking Fluoxetine and Xanax. Pt states she often juhi with stress by using humor. She has support from friends and family ?Interim History: Time from completion of treatment 7 months Problems at primary site (breast) none Metastatic symptoms: none Pain none Breast tenderness Mild breast tenderness Skin changes breast none Lymphedema none Persistent cough No cough Persistent headaches none ROM restriction none Functional status Independent with all ADL and IADL but tires more quickly Smoking none Activity/exercise Pool at least twice a week--has had double knee replacement --has had PT for kneein the past doing 15 minutes of exercise Hormone therapy side effects N/A Misc Tightness left arm No itch now Improved energy Review of Systems Constitutional: Negative for chills, diaphoresis, fever and weight loss. Tires at times HENT: Negative. Respiratory: Negative. Negative for cough. Cardiovascular: Negative. Gastrointestinal: Negative. Negative for anorexia. Endocrine: Negative. Genitourinary: Negative. Skin: Negative. Neurological: Negative. Hematological: Negative. Psychiatric/Behavioral: Negative. See social history Vitals Office Visit from 04/22/2019 in Radiation Oncology at [facility] Weight 128.1 kg (282 lb 8 oz) Height 154.9 cm (5' 1) BSA (Calculated - sq m) 2.35 sq meters BMI (Calculated) 53.37 Temp 36.9 ??C (98.4 ??F) Temp src Oral Heart Rate 82 Heart Rate Source NIBP Resp 18 BP 135/79 BP Location Right arm Patient Position Sitting SpO2 99 % BPS=993 Objective: Physical Exam Constitutional: She is oriented to person, place, and time. She appears well- developed and well-nourished. No distress. HENT: Head: Normocephalic and atraumatic. Eyes: EOM are normal. Right eye exhibits no discharge. Left eye exhibits no discharge. No scleral icterus. Neck: Normal range of motion. Neck supple. Cardiovascular: Normal rate, regular rhythm and normal heart sounds. Exam reveals no gallop. No murmur heard. Pulmonary/Chest: Effort normal and breath sounds normal. No stridor. No respiratory distress. She has no wheezes. She has no rales. She exhibits no tenderness. Abdominal: Soft. Bowel sounds are normal. She exhibits no distension. There is no tenderness. Musculoskeletal: Normal range of motion. She exhibits no edema or tenderness. Neurological: She is alert and oriented to person, place, and time. No cranial nerve deficit. She exhibits normal muscle tone. Coordination normal. Skin: Skin is warm and dry. No rash noted. She is not diaphoretic. No erythema. No pallor. Psychiatric: She has a normal mood and affect. Her behavior is normal. Judgment normal. Vitals reviewed. Breast__X__ no nipple discharge, no dryness, no erythema, no tenderness, no masses, no lymphedema of breast or arm Treated site: ____Right or __X__Left, ___X_Breast or Chest wall Telangectasias: __X__None, ____Few; Moderate; Many and confluent Hypopigmentation: __X__None; ____Slight or localized; ____Marked or generalized Hyperpigmentation: __X__None; ____Slight or localized; ____Marked or generalized Fibrosis: __X___None; Increased density; ____Marked increased density + retraction; ____ Very marked Dry skin: __X__None; ____Asymptomatic; symptomatic; Interferes with ADL Assessment and Plan: Quin Santana is a 53 y.o. female who completed xrt on 09/20/18 for breast ca, L, DCIS, gr 2, ER+LA+, 3.2 cm, +necrosis, s/p lumpectomy. Quin was treated to a dose of 52.56 Gy. She is not on hormone therapy. Quin is doing well with BIMAL. As part of today's visit we reviewed survivorship issues. A survivor care plan was prepared and sent to patient and PCP. Patient continues to be anxious about this diagnosis and support was provided. I discussed nonpharmacologic measures that she can take to decrease her risk of breast cancer recurrence, to include the following: Avoidance of weight gain - multiple retrospective trials have shown an increased risk of breast cancer recurrence in women who gain weight after a breast cancer diagnosis Exercise - the Nurse's Health Study showed a 50% decreased risk of breast cancer mortality in womenwho exercised three hours a week or more at 7-9 METS, equivalent to walking at a moderate pace Dietary Fat Restriction - the WINS study showed a 40% decreased risk of breast cancer recurrence inwomen with ER negative breast cancer who were randomized to cut their dietary fat intake from 30% to 20% of calories as fat We reviewed signs and symptoms of late effect of radiation therapy including tissue fibrosis, need to do regular stretching exercises, need to report edema to breast or arm and any persistent symptoms including persistent cough, headache, skeletal pain, skin changes. We discussed the survivor benefits of regular exercise and weight control. We will see her again in six months. She is due for her bilateral mammogram and would like this scheduled in [facility]. She had pulmonary nodules when her SIM occurred and we will do another CT of her chest to determinestability. If these are stable then low dose CT can be discontinued. F/U in clinic in six months for clinical exam. Follow-up for a total of 35 minutes, with 30 minutes of that time spent discussing her current clinical condition, reviewing her Breast Cancer Survivor Care Plan which includes review of her breast cancer history, treatment history, health behaviors to promote wellness, ongoing surveillance, late effects of treatments and symptoms to report as well as planning further management. documented in this encounter Plan of Treatment Upcoming Encounters Date Type Department Care Team (Late Contact Info) Description 05/30/2024 10:00 AM EST Appointment Mammography/[place] [phone] Alicia Quinteros MD [facility] [place] [address] 08/11/2024 4:15 PM EST Office Visit Dermatology at [place] [address] [facility] [address] [place] [address] Jhon Giron MD [address], [place] [address] 11/21/2024 2:00 PM EDT Office Visit Radiation Oncology at [address] [phone] Alicia Quinteros MD [facility] [place] [address] 10/06/2029 Hospital Encounter [place] [address] Al Mendez MD [facility] [place] [address] Scheduled Procedures Name Priority Associated Diagnoses Date/Ti me @TOTAL KNEE REVISION ARTHROP LASTY, COMPLETE (WRVU 27.11) Instability Right TKA MODIFIER,GMK REVISION KNEE,MEDACTA Instability Right TKA documented as of this encounter Visit Diagnoses Diagnosis Ductal carcinoma in situ (DCIS) of left breast Pulmonary nodules Other nonspecific abnormal finding of lung field documented in this encounter Care Teams Meteorologist In Charge Relationship Specialty Start Date End Date Avis Honeycutt, LEVON [address] [place] [address] PCP - General Family Medicine 05/27/18 12/17/20 documented as of this encounter
--- OUTSIDE RECORDS SUMMARY | 2024-04-14 10:38 | XMS_ITS | Encounter Summary ---
[place] [address] Care Team Providers Care Rip Sawyer Name Role Phone TangelaAvis LEVON Primary Care Provider [phone] Encounter Details Date Type Department Care Team (Late st Contact Info) Description 12/27/2018 Telephone Hematology [place] [phone] Anabel Sanchez [facility] HEMATOLOGY/ONCOLOGY DEPT. [place] [address] Social History Tobacco Use Types Packs/Day Years [...] Telephone Encounter - Anabel Sanchez LGC - 12/27/2018 10:44 AM EDT This test result was discussed with the patient by phone. A copy of a letter sent to the patient containing these results is provided below. Please be advised that [place] law requires that allhealth care workers respect the confidentiality of this information and not pass it along to other health care providers, insurance companies, or individuals without the written permission of the patient. The Familial Cancer Program welcomes any questions about these matters. Our phone number is: [phone]. On December 15, 2018, Quin underwent genetic testing for a hereditary predisposition to common hereditary cancers, including breast, gynecologic and gastrointestinal. Following are the results of this test. Result: [facility] Common Hereditary Cancers Panel showed no mutation was detected. This means that Quin does not carry a mutation in the genes detectable by this test. The following genes were evaluated forsequence changes and exonic deletions/duplications: APC, ANITA, AXIN2, BARD1, BMPR1A, BRCA1, BRCA2, BRIP1, CDH1, CDK4, CDKN2A (p14ARF), CDKN2A (y30EVU4a), CHEK2, CTNNA1, DICER1, EPCAM (EPCAM: Deletion/duplication testing only ([id number]), GREM1 (GREM1: Promoter region deletion/duplication testing only.), KIT, MEN1, MLH1, MSH2, MSH3, MSH6, MUTYH, NBN, NF1, PALB2, PDGFRA, PMS2, POLD1, POLE, PTEN, RAD50, RAD51C, RAD51D, SDHB, SDHC, SDHD, SMAD4, SMARCA4, STK11, TP53, TSC1, TSC2, VHL. The following g man were evaluated for sequence changes only: HOXB13 (c.251G>A, p.Ddi34Hbi variant only), NTHL1(NTHL1: Deletion/duplication analysis is not offered for this gene ([id number]), and SDHA. We are enclosing a printed copy of Quin's test results. Interpretation: Because the genetic basis, if any, of the breast cancer in Quin and prostate cancer in her father has not been identified, this negative test result does not necessarily mean that Quin's cancer wassporadic (i.e. not attributable to an inherited predisposition). This is because of two important limitations of the test. First, not all inherited predisposition to cancer is attributable to the genes tested by this panel. Research has identified other genes that when mutated can increase one???s risk of cancer. Second, a small percentage of mutations in genes tested by this panel may be missed by current technology. Additional genetic testing for Quin or other family members is not recommended at this time. Screening Recommendations Based on genetic test results and personal and family history, we recommend: Breast cancer screening ?? Annual clinical breast exams ?? Annual tomosynthesis (3D mammogram) Ovarian cancer screening ?? We do not recommend any special screening studies in addition to an annual LIVESTOCK AGENT exam at this time. Other cancer screening ?? Periodic colonoscopy screening as recommended by Quin's surgical endoscopist. ?? Periodic dermatologic/skin exams documented in this encounter Plan of Treatment Upcoming Encounters Date Type Department Care Team (Late st Contact Info) Description 05/30/2024 10:00 AM EST Appointment Mammography/[place] [phone] Alicia Quinteros MD [facility] RADIATION ONCOLOGY [place] [address] 08/11/2024 4:15 PM EST Office Visit Dermatology at [address] [place] [phone] Jhon Giron MD [address] [place] [address], [place] [address] 11/21/2024 2:00 PM EDT Office Visit Radiation Oncology at [address] [phone] Alicia Quinteros MD [facility] RADIATION ONCOLOGY [place] [address] 10/06/2029 Hospital Encounter [place] [address] Al Mendez MD [facility] ORTHOPAEDIC SURGERY [place] [address] Scheduled Procedures Name Priority Associated Diagnoses Date/Ti me @TOTAL KNEE REVISION ARTHROP LASTY, COMPLETE (WRVU 27.11) Instability Right TKA MODIFIER,GMK REVISION KNEE,MEDACTA Instability Right TKA documented as of this encounter Visit Diagnoses Not on filedocumented in this encounter Care Teams Rip Sawyer Relationship Specialty Start Date End Date Avis Honeycutt, NOCTURNIST [address] [place] [address] PCP - General Family Medicine 05/27/18 12/17/20 documented as of this encounter
--- OUTSIDE RECORDS SUMMARY | 2024-04-14 10:38 | XMS_ITS | Encounter Summary ---
[place] [address] Care Team Providers Care Unix Analyst Name Role Phone Bhaskar Morales MD Primary Care Provider [phone] Reason for Visit * Auth/Cert Specialty Diagnoses / Procedures Referred By Contac t Referred To Contact Diagnoses Pain in left knee Presence of left artificial knee joint Failed Left TKA Procedures PRO REVISE KNEE JOINT REPLACE, ALL PARTS TOTAL KNEE REVISION ARTHROPLASTY, COMPLETE (WRVU 27.11) MODIFIER,GMK REVISION KNEE,MEDACTA Referral ID Status Reason Start Date Expiration Date Visits Re quested Visits Authorized [id number] 1 1 Encounter Details Date Type Department Care Team (Late st Contact Info) Description 02/15/2021 8:26 AM EDT Anesthesia Event [place] [address] Abisai Sage MD [facility] [place] [address] Jesus Oden DO [facility] [place] [address] Anesthesia Record Procedure Summary Procedure Name Responsible Anesthesiologist Anesthesia Start Time Anesthesia Stop Time @TOTAL KNEE REVISION ARTHROPLASTY, COMPLETE (WRVU 27.11) (Left: Knee) Abisai Sage MD 02/15/21 0826 02/15/21 1208 Events Date Time Event Comment 02/15/2021 0734 0824 AN Verify 0826 Start 0826 An Start Data 0831 An Induction 0833 An Intubation 0837 Anesthesia Ready 0902 Skin Incision 0950 Break/Relief In I assumed ca re for Break Relief before which we: 1. Identified the patient 2. Identified the responsible provider(s) 3. Reviewed the pertinent medical history 4. Discussed the surgical plan and course 5. Reviewed intra-op anesthesia management and issues during anesthesia 6. Set expectations for the relief (and/or post-procedure) period 7. Allowed opportunity for questions and acknowledgement of understanding Evelyn Hallman Chanel, GRAIN UNLOADER 1013 Break/Relief Out 1107 An Tourn Deflated [id number]' 1201 Extubation/LMA Out 1203 an stop data 1208 Stop 1208 Recovery or ICU Handoff Blossom ent care was transferred to the destination unit staff after review of the patient's medical history, current anesthetic/surgical status and plan, according to the Provider Handoff Checklist. Meds Name Total BUpivacaine 0.5% 30 mL IV Lidocaine 60 mg Propofol 300 mg Rocuronium 70 mg PHENYLephrine 480 mcg ePHEDrine 15 mg Ondansetron 8 mg Dexamethasone 8 mg Glycopyrrolate 20 mg PHENYLephrine INF 5,790 mcg tranexamic acid (Cyklokapron ) 2,069 mg in sodium chloride 0.9% 120.69 mL infusion 2,069 mg ceFAZolin (Ancef) 3 g in dextrose 5% 109 mL infusion 3 g Sugammadex 200 mg lactated ringers infusion 1,000 mL Lactated Ringers 700 mL * Agents Name O2 Air N2O Sevoflurane (et) * Blood No blood administrations on file. Lines, Drains, and Airways Type Details Placement Removal Incision 02/15/21; 0902; Left , anterior; knee; midline 02/15/21 0902 by Deanna Busch RN Incision 06/24/18; 1018; remi st; 02/03/22 (LDA cleanup utility RA#[id number]); 1715 (LDA cleanup utility RA#[id number]) 06/24/18 1018 by Arlene Ross RN 02/03/22 1715 by Abram Ahuja (RETIRED) Peripheral IV Line - Single Lumen 02/15/21; 0728; median vein (underside of arm), left; [id number] catheter system; 20 gauge; Rosa Maria Lucas RN; distraction, intradermal injection, tolerated well; 0; 02/16/21; 1320 02/15/21 0728 by Rosa Maria Lucas RN 02/16/21 1320 by Janeth Saravia RN ETT Mask Ventilation: Adjunct (2); ETT Type: Cuffed, Oral; ETT Size: 7.5 mm; Cuevas Blade: 3; Exchange: Bougie; Attempts: 1; Laryngoscopy Grade: 1; Secured at Teeth: 23 cm; Inserted by: Arslan; Removal Date: 02/15/21; Removal Time: 1201 02/15/21 0833 by Nic Rojo, GRAIN UNLOADER 02/15/21 1201 by Nic Rojo, CHERRY (RETIRED) Peripheral IV Line - Single Lumen 02/15/21; 0837; arslan, 18g L distal cephalic; no longer indicated, catheter/device intact; 02/15/21; 2336 02/15/21 0837 by Nic Rojo, GRAIN UNLOADER 02/15/21 2336 by Laina Vela LPN Urethral Catheter 02/15/21; 0850; Surg kobi longer than 2 hours, Physician order; indwelling double lumen catheter; latex; 14; inserted at this facility; 1; 5; 10; none; drainage bag to dependent drainage; urethral catheter removed, tubing intact; 02/16/21; 0548 02/15/21 0850 by Deanna Busch RN 02/16/21 0548 by Laina Vela LPN documented in this encounter Social History Tobacco Use Types Packs/Day Years [...] PM EST documented as of this encounter OR Notes * Anesthesia Postprocedure Evaluation - Abisai Sage MD - 02/15/2021 3:10 PM EDT Department of Anesthesiology Post-procedure Note Patient: Quin Santana Procedure Summary Date: 02/15/21 Room / Location: [place] [address] [facility] MAIN OR Anesthesia Start: 825 Anesthesia Stop: 1207 Procedures: TOTAL KNEE REVISION ARTHROPLASTY, COMPLETE (WRVU 27.11) (Left Knee) MODIFIER,GMK REVISION KNEE,MEDACTA (Left ) Diagnosis: (Failed Left TKA) Surgeons: Al Mendez MD Responsible Provider: Abisai Sage MD Anesthesia Type: general ASA Status: 3 All Anesthesia Providers: Anesthesiologist: Abisai Sage MD GRAIN UNLOADER: Nic Rojo CRNA Vitals Value Taken Time BP 116/66 02/16/21 0946 Temp 37 ??C (98.6 ??F) 02/16/21 0718 Pulse 101 02/15/21 1907 Resp 18 02/16/21 0718 SpO2 95 % 02/16/21 0719 Pain Level 4 02/16/21 1307 Vitals shown include unvalidated device data. Patient Location: PACU/[facility] Level of Consciousness: Awake and Alert Pain Management: Satisfactory Analgesia PONV: None Cardiovascular Status: At Baseline and Hemodynamically Stable Respiratory Status: At Baseline and Room Air Postoperative Fluid Status: Intravascular EUvolemia Possible Anesthetic Complications: NONE apparent at time of evaluation Final Primary Anesthesia Type: General (The anesthetic type performed was the same as planned.) Comments: Abisai Sage MD * Anesthesia Procedure Notes - Jesus Oden - 02/15/2021 8:28 AM EDTAssociated Order(s): Anesthesia Block Anesthesia Block Date/Time: 02/15/2021 8:15 AM Performed by: Jesus Oden DO Authorized by: Abisai Sage MD Start Time: 02/15/2021 8:05 AM End Time: 02/15/2021 8:10 AM Patient Location: Block Room Indication: Post-op Pain Control Post-op pain management at the request of surgeon. Block Type: Adductor canal block Laterality: Left Position: Supine Prep: Chlorhexidine, patient draped and mask, cap, sterile gloves, hand hygeine Skin Anesthetic: Skin Anesthetic: Lidocaine 1% dose: 4 Block Technique: SonoPlex 22 10 cm Ultrasound Guided: YES and in-plane Ultrasound Image Saved Ultrasound guidance was used to identify the targeted neuronal structure. Ultrasound was also used to identify needle position and to identify tissue (bone, muscle, and blood vessels) to prevent inadvertent intraneural or intravascular needle placement and injection. The spread of local anesthetic was confirmed with live ultrasound imaging.?? Single-Shot: Single-shot Local Anesthetic Volume(s) Injected for Nerve Block: BUpivacaine 0.5%, 30 mL Nerve Sensory/MotorTest: Events: no complications Staff: Resident/GRAIN UNLOADER:: Jesus Oden DO Attending Physician:: Abisai Sage MD Notes: Patient tolerated well. In communication throughout. * Anesthesia Preprocedure Evaluation - Beatriz Perez MD - 02/14/2021 12:05 PM EDT Pre-Anesthesia Evaluation for: Quin chance 55 y.o. female. Procedure(s): TOTAL KNEE REVISION ARTHROPLASTY, COMPLETE (WRVU 27.11) MODIFIER,GMK REVISION KNEE,MEDACTA Patient Active Problem List Diagnosis ??? Obstructive sleep apnea syndrome ??? Insomnia ??? Asthma ??? Gastroesophageal reflux disease ??? History of renal calculi ??? Hyperlipidemia ??? Essential hypertension ??? Abnormal glucose level ??? Adult BMI 50.0-59.9 kg/sq m ??? Lactose intolerance ??? Ductal carcinoma in situ (DCIS) of left breast ??? Allergic rhinitis Past Medical History: Diagnosis Date ??? Anxiety [...] Stereotactic Biopsy Left 05/10/2018 Jinny Gutierrez MD [facility] RAD MAMMOGRAPHY ??? PRO MASTECTOMY PARTIAL Left 06/24/2018 MASTECTOMY PARTIAL (WRVU 10.13) performed by Frances Zee MD at [facility] MAIN OR Social History Tobacco Use ??? Smoking status: Never Smoker ??? Smokeless tobacco: Never Used Substance Use Topics ??? Alcohol use: Never Social History Substance and Sexual Activity Drug Use Never Allergies Allergen Reactions ??? Hymenoptera Allergenic Extract Anaphylaxis Stinging insects ??? Venom-Honey Bee Other reaction(s): Anaphylaxsis ??? Insect Venom ??? Lactose ??? Levonorgestrel-Ethinyl Estrad ??? Penicillins [facility] Penicillin Allergy Risk Assessment 02/06/2021: Low risk penicillin allergy. OK to receive full dose of cefazolin, cefuroxime, or any 3rd or 4th+ generation cephalosporin. PAT Clinic BUS AIDE to place Allergy referral for formal penicillin allergy evaluation. Patient is open to a consult by phone fromallergy clinic. ??? Poison Dalia Extract Medications: MAR and/or home medications have been reviewed. Physical Exam: Preprocedure Vitals Current as of 02/14/21 1205 No BP, pulse, respiration, SpO2, or temperature recorded. Height: 154.9 cm (5' 1) (12/26/20) Weight: 137.9 kg (304 lb) (12/26/20) BMI: 57.43 IBW: 47.8 kg (105 lb 4.8 oz) Airway Assessment: Mallampati: II TM distance: <3 FB Neck ROM: full Cardiovascular Assessment: Rhythm: regular Rate: normal Pulmonary Assessment: unlabored breathing Dental Assessment: Misc Assessment: IV access: Peripheral line Other exam findings: Underbite, large neck Last Filed Perioperative Cognitive Screening None Anesthesia Plan: ASA 3 general, with a(n) intravenous induction 55 y.o., 130kg (BMI 54) female with failed left TKA presenting for left total knee revision PMH significant for morbid obesity, DANILO (on CPAP), HTN, anxiety, HLD, GERD, asthma Medications: albuterol, alprazolam, atorvastatin, benazepril, symbicort, cetirizine, citalopram, HCTZ, lamotrrigine, metformin, omeprazole, vitamins Anesthetic hx: No reported prior complications with anesthesia Airway hx: prior iGel 4 EK02/2021: NSR Lab Results Component Value Date HGB 12.0 02/06/2021 PLATELET 238 02/06/2021 INR 1.1 02/06/2021 NA 140 02/06/2021 K 4.3 02/06/2021 CREATININE 0.85 02/06/2021 02/06/21 1102 ABORH O Pos Allergies: -- Hymenoptera Allergenic Extract -- Anaphylaxis -- Stinging insects -- Venom-Honey Bee -- Other reaction(s): Anaphylaxsis -- Insect Venom -- Lactose -- Levonorgestrel-Ethinyl Estrad -- Penicillins -- PAT Penicillin Allergy Risk Assessment 02/06/2021: Low risk penicillin allergy. OK to receive full dose of cefazolin, cefuroxime, or any 3rd or 4th+ generation cephalosporin. PAT Clinic BUS AIDE to place Allergy referral for formal penicillin allergy evaluation. Patient is open to a consult by phone from allergy clinic. -- Poison Dalia Extract NPO Status: Appropriate Denies recent fever or URI Sxs Anesthetic Plan: Patient refuses spinal Will proceed with general anesthesia Standard ASA monitoring Adequate IV access Preop Adductor canal block Informed Consent: Anesthetic plan and risks discussed with patient. Anesthesia Screening documented in this encounter Miscellaneous Notes * Addendum Note - Abisai Sage MD - 02/19/2021 4:40 PM EDT Addendum created 02/19/21 1640 by Abisai Sage MD Cosign clinical note documented in this encounter Plan of Treatment Upcoming Encounters Date Type Department Care Team (Late st Contact Info) Description 05/30/2024 10:00 AM EST Appointment Mammography/[place] [address] Alicia Quinteros MD [facility] [place] [address] 08/11/2024 4:15 PM EST Office Visit Dermatology at [place] [address] [place] [id number] Jhon Giron MD [address], [place] [address] 11/21/2024 2:00 PM EDT Office Visit Radiation Oncology at [address] [address] Alicia Quinteros MD [facility] [place] [address] 10/06/2029 Hospital Encounter [place] [address] Al Mendez MD [facility] [place] [address] Scheduled Procedures Name Priority Associated Diagnoses Date/Ti me @TOTAL KNEE REVISION ARTHROP LASTY, COMPLETE (WRVU 27.11) Instability Right TKA MODIFIER,GMK REVISION KNEE,MEDACTA Instability Right TKA documented as of this encounter Procedures Procedure Name Priority Date/Time Associated Diagnosis Comments ANESTHESIA BLOCK Routine 02/15/2021 8:15 AM EDT documented in this encounter Results * Anesthesia Block (02/15/2021 8:15 AM EDT) Narrative Abisai Sage MD - 02/15/2021 8:15 AM EDT Jesus Oden DO ? 02/15/2021 ??8:29 AM Anesthesia Block Date/Time: 02/15/2021 8:15 AM Performed by: Jesus Oden DO Authorized by: Abisai Sage MD Start Time: ??02/15/2021 8:05 AM End Time: ??02/15/2021 8:10 AM Patient Location: ??Block Room Indication: ??Post-op Pain Control Post-op pain management at the request of surgeon. ?? Block Type: ??Adductor canal block Laterality: ??Left Position: ??Supine Prep: ??Chlorhexidine, patient draped and mask, cap, sterile gloves, hand hygeine Skin Anesthetic: ??Skin Anesthetic: ??Lidocaine 1% ??dose: ??4 Block Technique: ?? SonoPlex ?? 22 ?? 10 cm ??Ultrasound Guided: ??YES and in-plane ??Ultrasound Image Saved ?Ultrasound guidance was used to identify the targeted neuronal structure. Ultrasound was also used to identify needle position and to identify tissue (bone, muscle, and blood vessels) to prevent inadvertent intraneural or intravascular needle placement and injection. The spread of local anesthetic was confirmed with live ultrasound imaging.?Single-Shot: ??Single-shot Local Anesthetic Volume(s) Injected for Nerve Block: ?? BUpivacaine 0.5%, 30 mL Nerve Sensory/MotorTest: ??Events: no complications ?? Staff: ??Resident/GRAIN UNLOADER:: ??Jesus Oden, DO ??Attending Physician:: ??Abisai Sage MD Notes: ?? Patient tolerated well. In communication throughout. Abisai Sage MD LEGAL AIDE [facility] documented in this encounter Visit Diagnoses Not on filedocumented in this encounter Administered Medications Inactive Administered Medications - up to 3 most recent administrations Medication Order MAR Action Action Date Dose Rate Site BUpivacaine (pf) (Marcaine) (5 mg/mL) 0.5% injection Perineural, Starting on Thu02/15/21 at 0815, Until Thu02/15/21 at 0815, Anesthesia Intra-op, Routine Given 02/15/2021 8:15 AM EDT 30 mLs ceFAZolin (Ancef) 3 g in dextrose 5% 109 mL infusion 3 g, Intravenous, EVERY 3 HOURS, 1 dose, First dose on Thu02/15/21 at 0745, Administer over 30 Minutes, Redose after 3 hours., Intra-Operative (Intra-Procedure), Indication for (Active or Suspected): Prophylaxis Given 02/15/2021 8:37 AM EDT 3 g dexamethasone (Decadron) injection Intravenous, PRN, Starting on Thu02/15/21 at 0838, Until Thu02/17/21 at 1208, Anesthesia Intra-op, Routine Given 02/15/2021 8:38 AM EDT 8 mg ePHEDrine sulfate (5 mg/mL) multi-dose injection Intravenous, PRN, Starting on Thu02/15/21 at 1106, Until Thu02/17/21 at 1208, Anesthesia Intra-op, Routine Given 02/15/2021 11:06 AM EDT 15 mg glycopyrrolate (Robinul) (0.2 mg/mL) multi-dose injection Intravenous, PRN, Starting on Thu02/15/21 at 1126, Until Thu02/17/21 at 1208, Anesthesia Intra-op, Routine Given 02/15/2021 11:26 AM EDT 20 mg lactated ringers infusion 1,000 mL, at 100 mL/hr, Intravenous, CONTINUOUS, Starting on Thu02/15/21 at 0730, Until Thu02/15/21 at 1423, Day of Surgery (Day of Procedure) New Bag 02/15/2021 11:27 AM EDT Restarted 02/15/2021 8:15 AM EDT New Bag 02/15/2021 7:30 AM EDT 1,000 mLs 100 mL/hr lactated ringers infusion Intravenous, CONTINUOUS PRN, Starting on Thu02/15/21 at 0835, Until Thu02/17/21 at 1208, Anesthesia Intra-op New Bag 02/15/2021 8:35 AM EDT lidocaine (pf) (Xylocaine) (20 mg/mL) 2% injection syringe Intravenous, PRN, Starting on Thu02/15/21 at 0828, Until Thu02/17/21 at 1208, Anesthesia Intra-op, Routine Given 02/15/2021 8:28 AM EDT 60 mg ondansetron (pf) (Zofran) (2 mg/mL) injection Intravenous, PRN, Starting on Thu02/15/21 at 0841, Until Thu02/17/21 at 1208, Anesthesia Intra-op, Routine Given 02/15/2021 11:29 AM EDT 4 mg Given 02/15/2021 8:41 AM EDT 4 mg PHENYLephrine (Clayton-Synephrine) (80 mcg/mL) in sodium chloride 0.9% 250 mL infusion Intravenous, CONTINUOUS PRN, Starting on Thu02/15/21 at 0841, Until Thu02/17/21 at 1208, Anesthesia Intra-op, Routine New Bag 02/15/2021 8:41 AM EDT 30 mcg/min 22.5 mL/hr PHENYLephrine in NS (PF) (CLAYTON-SYNEPHRINE) 0.8 mg/10 mL (80 mcg/mL) multi-dose injection Syrg Intravenous, PRN, Starting on Thu02/15/21 at 0832, Until Thu02/17/21 at 1208, Anesthesia Intra-op, Routine Given 02/15/2021 11:06 AM EDT 240 mcg Given 02/15/2021 8:47 AM EDT 160 mcg Given 02/15/2021 8:32 AM EDT 80 mcg propofoL (Diprivan) 10 mg/mL bolus injection (Anesthesia) Intravenous, PRN, Starting on Thu02/15/21 at 0830, Until Thu02/17/21 at 1208, Anesthesia Intra-op Given 02/15/2021 8:32 AM EDT 100 mg Given 02/15/2021 8:30 AM EDT 200 mg rocuronium (Zemuron) (10 mg/mL) multi-dose injection Intravenous, PRN, Starting on Thu02/15/21 at 0832, Until Thu02/17/21 at 1208, Anesthesia Intra-op, Routine Given 02/15/2021 10:11 AM EDT 20 mg Given 02/15/2021 8:32 AM EDT 50 mg sugammadex (Bridion) 100 mg/mL injection Intravenous, PRN, Starting on Thu02/15/21 at 1129, Until Thu02/17/21 at 1208, Anesthesia Intra-op, Routine Given 02/15/2021 11:29 AM EDT 200 mg tranexamic acid (Cyklokapron) 2,069 mg in sodium chloride 0.9% 120.69 mL infusion 2,069 mg (rounded from 2,068.5 mg = 15 mg/kg/dose ? 137.9 kg), Intravenous, ONCE, 1 dose, On Thu02/15/21 at 0730, Administer over 30 Minutes, Day of Surgery (Day of Procedure) New Bag 02/15/2021 8:37 AM EDT 2,069 mg documented in this encounter Care Teams Unix Analyst Relationship Specialty Start Date End Date Bhaskar Morales MD PCP - General Family Medicine 12/18/20 documented as of this encounter
--- OUTSIDE RECORDS SUMMARY | 2024-04-14 10:38 | XMS_ITS | Encounter Summary ---
Author Organization [facility] [place] [address] Care Team Providers Care Prescriptionist Name Role Phone Avis Honeycutt APRN Primary Care Provider [phone] Reason for Visit * Reason Comments Radiation Follow-up Encounter Details Date Type Department Care Team (Late st Contact Info) Description 11/26/2020 2:00 PM EDT Office Visit Radiation Oncology at [address] [phone] Alicia Quinteros MD [facility] [place] [address] S/P radiotherapy; Breast cancer screening by mammogram Social History [...] Sign Reading Time Taken Comments Blood Pressure 148/99 11/26/2020 2:11 PM EDT Pulse 100 11/26/2020 2:11 PM EDT Temperature 36.2 ??C (97.2 ??F) 11/26/2020 2:11 PM ED T Respiratory Rate 18 11/26/2020 2:11 PM EDT Oxygen Saturation 97% 11/26/2020 2:11 PM EDT Inhaled Oxygen Concentration - - Weight 143 kg (315 lb 3.2 oz) 11/26/2020 2:11 PM EDT Height - - Body Mass Index 59.56 07/05/2020 8:17 AM EST documented in this encounter Patient Instructions * Patient Instructions* Alicia Quinteros MD - 11/26/2020 2:00 PM EDT Your exam is without worrisome finding. You will be due for yearly mammograms after 06/12/21. Someone will contact you to schedule them. Someone will contact you to schedule followup with me in 6 months. documented in this encounter Progress Notes * Alicia Quinteros MD - 11/26/2020 2:00 PM EDT Images from the original note were not included. CC: Sched'd fu s/p xrt completion. HPI: Quin is a 55 y/o f who completed xrt 2 yrs, 2 mos ago (09/20/18) for breast ca, L, DCIS, gr 2,ER+KY+, 3.2 cm, +necrosis, s/p lumpectomy. ?? 07/27/18 [...] FNA benign, further followup not indicated. Subjective: No breast problem. No pain. Dove into swimming pool for 1st time since xrt w/o pain in L breast. ROM arms around shoulders great. No hand/arm swelling. Energy level good. Past Medical History: Diagnosis Date ??? Anxiety ??? Asthma ??? Environmental allergies ??? GERD (gastroesophageal reflux disease) ??? HTN (hypertension) ??? Hypercholesteremia ??? Thyroid nodule No collagen vasc dz. Past Surgical History: Procedure Laterality Date ??? BREAST REDUCTION SURGERY Bilateral 1995 ??? KNEE SURGERY Bilateral ??? MAMMO STEREOTACTIC BIOPSY LEFT N/A 05/10/2018 Mammo Stereotactic Biopsy Left 05/10/2018 Jinny Gutierrez MD [facility] RAD MAMMOGRAPHY ??? PRO MASTECTOMY PARTIAL Left 06/24/2018 MASTECTOMY PARTIAL (WRVU 10.13) performed by Frances Zee MD at [facility] MAIN OR Your Medications Accurate as of November 26, 2020 2:22 PM. If you have any questions, ask [...] mg Tab Commonly known as: LaMICtal Take 100 mg by mouth daily. 100 mg Refills: 0 multivitamin Tab Commonly known [...] is not in acute distress. Comments: BP (!) 148/99 (Patient Position: Sitting) Pulse 100 Temp 36.2 ??C (97.2 ??F) (Temporal) Resp 18 Wt (!) 143 kg (315 lb 3.2 oz) SpO2 97% BMI 59.56 kg/m?? HENT: Head: Normocephalic. Eyes: General: No [...] Thought content normal. Judgment: Judgment normal. A: BIAML. Decision Making/Plan: B mmgs due after 06/12/21, ordered. Rtc 6 mos. 20 mins in encounter. documented in this encounter Plan of Treatment Upcoming Encounters Date Type Department Care Team (Late st Contact Info) Description 05/30/2024 10:00 AM EST Appointment Mammography/[place] [address] Alicia Quinteros MD [facility] [place] [address] 08/11/2024 4:15 PM EST Office Visit Dermatology at [place] [address] [place] [address] Jhon Giron MD [address] [place] [address] 11/21/2024 2:00 PM EDT Office Visit Radiation Oncology at [address] [phone] Alicia Quinteros MD [facility] [place] [address] 10/06/2029 Hospital Encounter [place] [address] Al Mendez MD [facility] [place] [address] Scheduled Procedures Name Priority Associated Diagnoses Date/Ti [...] have questions please contact the health director long term care that requested your imaging first. ? Alicia Quinteros MD IMG MAMMO ORDERABLES documented in this encounter Visit Diagnoses Diagnosis S/P radiotherapy Convalescence following radiotherapy Breast cancer screening by mammogram Breast cancer screening by mammogram documented in this encounter Care Teams Prescriptionist Relationship Specialty Start Date End Date Avis Honeycutt, DIRECTOR CLINICAL PHARMACOLOGY [address] [place] [address] PCP - General Family Medicine 05/27/18 12/17/20 documented as of this encounter
--- OUTSIDE RECORDS SUMMARY | 2024-04-14 10:38 | XMS_ITS | Encounter Summary ---
[place] [address] Care Team Providers Care General I Farmworker Name Role Phone Avis Honeycutt LEVON Primary Care Provider [phone] Reason for Visit * Reason Onset Date Comments Appointment 03/22/2019 Encounter Details Date Type Department Care Team (Late st Contact Info) Description 03/22/2019 Telephone Radiation Oncology at [address] [phone] Naheed Alonzo Appointment Social History Tobacco Use Types Packs/Day [...] encounter Miscellaneous Notes * Telephone Encounter - Naheed Alonzo - 03/22/2019 12:04 PM EDT Called Quin and NOHEMI for her to call back. Torri's schedule has changed and we will need to move her appointment on Apr 13 @ 9:45 to Apr 15 @ 9:45- lateral move. documented in this encounter Plan of Treatment Upcoming Encounters Date Type Department Care Team (Late st Contact Info) Description 05/30/2024 10:00 AM EST Appointment Mammography/[place] [address] Alicia Quinteros MD [facility] [place] [address] 08/11/2024 4:15 PM EST Office Visit Dermatology at [place] [address] [place] [address] Jhon Giron MD [address], [place] [address] 11/21/2024 2:00 PM EDT Office Visit Radiation Oncology at [address] [phone] Alicia Quinteros MD [facility] [place] [address] 10/06/2029 Hospital Encounter [place] [address] Al Mendez MD [facility] [place] [address] Scheduled Procedures Name Priority Associated Diagnoses Date/Ti me @TOTAL KNEE REVISION ARTHROP LASTY, COMPLETE (WRVU 27.11) Instability Right TKA MODIFIER,GMK REVISION KNEE,MEDACTA Instability Right TKA documented as of this encounter Visit Diagnoses Not on filedocumented in this encounter Care Teams General I Farmworker Relationship Specialty Start Date End Date Avis Honeycutt APRN [address] [place] [address] PCP - General Family Medicine 05/27/18 12/17/20 documented as of this encounter
--- OUTSIDE RECORDS SUMMARY | 2024-04-14 10:38 | XMS_ITS | Encounter Summary ---
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 Someone will call you to schedule yearly mammogram @ [facility]. I would like to see you for followup in 6 months. Someone will contact you to schedule appointment. documented in this encounter Progress Notes * Alicia Quinteros MD - 05/21/2020 4:00 PM EST Images from the original note were not included. CC: Sched'd fu s/p xrt completion. 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 ?? 07/27/18 [...] in non- smoker. No acute process. Subjective: No breast problem. No pain. ROM arms around shoulders great. No hand/arm [...] Stereotactic Biopsy Left 05/10/2018 Jinny Gutierrez MD [facility] RAD MAMMOGRAPHY ??? PRO MASTECTOMY PARTIAL Left 06/24/2018 MASTECTOMY PARTIAL (WRVU 10.13) performed by Frances Zee MD at [facility] MAIN OR Your Medications Accurate as of May 21, 2020 4:43 PM. If you have any questions, ask [...] She is not in acute distress. Comments: Pulse (!) 102 Temp 36.1 ??C (97 ??F) (Temporal) Resp 16 SpO2 96% HENT: Head: Normocephalic. Eyes: General: No scleral [...] normal. A: BIMAL. Decision Making/Plan: B mmgs due after 06/10/20, ordered. Rtc 6 mos. documented in this encounter Plan of Treatment Upcoming Encounters Date Type Department Care Team (Late st Contact Info) Description 05/30/2024 10:00 AM EST Appointment Mammography/[place] [address] Alicia Quinteros MD [facility] [place] [address] 08/11/2024 4:15 PM EST Office Visit Dermatology at [address] [place] [phone] Jhon Giron MD [address] [facility] [address], [place] [address] 11/21/2024 2:00 PM EDT Office Visit Radiation Oncology at [address] [phone] Alicia Quinteros MD [facility] [place] [address] 10/06/2029 Hospital Encounter [place] [phone] Al Mendez MD [facility] [place] [address] Scheduled Procedures Name Priority Associated Diagnoses Date/Ti me @TOTAL KNEE REVISION ARTHROP LASTY, COMPLETE (WRVU 27.11) Instability Right TKA MODIFIER,GMK REVISION KNEE,MEDACTA Instability Right TKA documented as of this encounter Visit Diagnoses Diagnosis 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
--- OUTSIDE RECORDS SUMMARY | 2024-04-14 10:38 | XMS_ITS | Encounter Summary ---
Author Organization [place] [address] Care Team Providers Care Manager Filter Name Role Phone Bhaskar Morales MD Primary Care Provider [phone] Reason for Visit * Reason Comments Pre-op Exam CASE REQ 02/15/2021 L EFT TKA REV * Consultation (Urgent) - Closed Specialty Diagnoses / Procedures Referred By Contac t Referred To Contact Orthopaedics Diagnoses TKA, ROTATING PLATFORM SPINACT FROM DR ARAIZA Procedures REQUESTING DR AL OR Missael Joseph MD [address] [place] [address] [facility] [address] [place] [address] Referral ID Status Reason Start Date Expiration Date V isits Requested Visits Authorized [id number] Closed Consult, Test & Treat Connection Center PCP Updated and/or Approved 12/18/2020 12/18/2021 6 6 Encounter Details Date Type Department Care Team (Late st Contact Info) Description 02/06/2021 9:00 AM EDT Office [place] [address] Al Mendez MD [facility] [place] [address] Knee dislocation, left, sequela Social History Tobacco [...] Time Taken Comments Blood Pressure 134/67 02/06/2021 8:26 AM EDT Pulse 80 02/06/2021 8:26 AM EDT Temperature - - Respiratory Rate - - Oxygen Saturation - - Inhaled Oxygen Concentration - - Weight 130.6 kg (288 lb) 02/06/2021 8:26 AM EDT Height 154.9 cm (5' 1) 02/06/2021 8:26 AM EDT Body Mass Index 54.42 02/06/2021 8:26 AM EDT documented in this encounter Progress Notes * Fang Ontiveros RN - 02/06/2021 9:00 AM EDT Arthroplasty History/Previous Orthopaedic Surgery: 1. Left TKA 05/02/15 (Kellen) 2. RIGHT TKA 2017 (Kellen) This note is recorded by Fang Ontiveros RN acting as a scribe for Dr. Jacquelyn Mendez. PREOPERATIVE VISIT Interval History: Quin Santana is a pleasant 55 y.o. year old female being seen today to discuss a left total knee revision . Her history was once again discussed and is outlined in a previous note. They have reviewed their options and at this point are expressing a desire to proceed with surgery. Physical Exam: Exam is previously documented in a note and is essentially unchanged. Knee Exam: Range of motion -5-120o. Inspection of her skin on the operative side demonstrates No skin breakdown or open wounds. Significant Medical Comorbidities Patient Active Problem List Diagnosis Code ??? Ductal carcinoma in situ (DCIS) of left breast D05.12 VITALS: BP Readings from Last 1 Encounters: 02/06/21 134/67 Pulse Readings from Last 1 Encounters: 02/06/21 80 Height: 154.9 cm (5' 1) Weight: 130.6 kg (288 lb) Body mass index is 54.42 kg/m??. Relevant Lab Studies Lab Results Component Value Date WBC 8.3 12/26/2020 HGB 13.1 12/26/2020 HCT 40.8 12/26/2020 PLATELET 286 12/26/2020 CRP <3.0 12/26/2020 SEDRATE 38 12/26/2020 No results for input(s): HA1C in the last 7068 hours. No results for input(s): ALBUMIN in the last 168 hours. CrCl cannot be calculated (No successful lab value found.). TJA Clotting and Bleeding Assessment Genetic predisposition or history of DVT or PE: No Hypercoaguable state?: No History of bleeding disorder?: No GI bleed or history of hemorrhagic stroke within the past 2 years: No Patient on lifelong anticoagulant for other reasons: No Discharge anticoagulation plan: PEPPER Infection Prevention Patient demonstrated appropriate skin integrity/infection knowledge level after instructions provided: Yes Patient demonstrated appropriate dental prophylaxis knowledge level after instructions provided: Yes Patient demonstrated appropriate understanding of chlorhexideine wash and mupirocin ointment: Yes General Assessment Total joint preparedness for surgery: Received binder, 1:1 Patient understands when to call the office pre-op and post-op: Verbalizes understanding Assistive device(s) used pre-op: None Patient currently on narcotics: No Patient has narcotic agreement signed: No Assessment and Plan: This is a pleasant 55 y.o. year-old female who presents for a preoperative appointment today for consideration of a left total knee revision . We had a discussion regarding the risks and benefits of surgery. I indicated that in my opinion, this is a treatment option most likely to restore a more normal, pain- free level of function and that we have exhausted reasonable non-operative alternatives. I discussed how I perform the procedure and all of their questions were answered. We discussed the risks of a total knee arthroplasty: Bleeding, infection, scar formation, dislocation, leg length inequality, persistent pain, stiffness, bursitis, failure/wear/loosening/breakage of implants, implant malposition, need for additional/future surgery, fracture, clot formation, embolus, stroke, nerve palsy, blood vessel injury, skin numbness, anesthetic and/or medical complications, . We reviewed options for postoperative DVT prophylaxis, based on AAOS guidelines. We discussed the pros and cons of different anticoagulants in terms of effectiveness and clot / embolus preventions vs. risks of bleeding and wound complications. We also reviewed their preferences regarding use of blood products and confirmed that while we would endeavor to minimize the risks of needing any transfusions, if circumstances were such that one ormore were indeed required, she would NOT refuse a blood transfusion. Quin Santana will be prescribed a prescription opioid for the treatment of acute post-operative pain related to orthopedic surgery. Quin Santana was advised to take the smallest dose possible to control their pain and as their pain improves to take smaller doses and increase the time between doses. The Acute Opioid Therapy Informed Consent form has been completed and sent to medical records for scanning to chart. Opioid Risk Assessment 02/06/2021 DAST-10 Risk Assessment Low (1-2) Some recent data might be hidden Opioid PDMP 02/06/2021 [place] PDMP Query Date 02/06/2021 [place] PDMP Query Date 02/06/2021 [place] PDMP Query Date 02/06/2021 In addition to this medication, non-opioid medications will be prescribed for adjunct treatment of their pain. Non-pharmacological treatment such as ice, elevation and activity modification was recommended as appropriate. Qiun Santana was instructed to administer Mupirocin into the nares twice daily starting 5 days prior to surgical date. Additional instructions were given to her at the time the medication was dispensed. She was also given chlorhexidine soap to use the night before and the morning of surgery. We discussed with the patient the possible discharge scenarios. The patient will require VNA services post-op: yes, patient/caregivers were educated about their right to choose where referrals are placed patient lives in [place], no preference on VNA. The patient prefers two-wheeled walker to help with post-operative ambulation. The patient has a walker and will bring it to surgery. Recommendations from Dr. Larson: Pending Note Post operative orthopaedic anti-coagulation plan: HADLEY Hayes Chronic anti-coagulation: no Does patient have metal allergy? No Expedited Discharge Candidate?: NO We discussed using Celebrex while in house. Upon discharge we will give the patient Naprosyn to take for 6 weeks after surgery for post-operative pain management. Any remaining questions were solicited from the patient and answered. Ms. Santana wishes to proceedaccordingly and informed consent was subsequently obtained for a left total knee revision . I have personally evaluated the patient and agree with the above note as recorded by Fang Ontiveros, RN Jacquelyn Mendez MD 02/06/2021 documented in this encounter Plan of Treatment Upcoming Encounters Date Type Department Care Team (Late st Contact Info) Description 05/30/2024 10:00 AM EST Appointment Mammography/[place] [phone] Alicia Quinteros MD [facility] [place] [address] 08/11/2024 4:15 PM EST Office Visit Dermatology at [address] [place] [phone] Jhon Giron MD [address], [place] [address] 11/21/2024 2:00 PM EDT Office Visit Radiation Oncology at [address] [phone] Alicia Quinteros MD [facility] [place] [address] 10/06/2029 Hospital Encounter [place] [phone] Al Mendez MD [facility] [place] [address] Scheduled Procedures Name Priority Associated Diagnoses Date/Ti me @TOTAL KNEE REVISION ARTHROP LASTY, COMPLETE (WRVU 27.11) Instability Right TKA MODIFIER,GMK REVISION KNEE,MEDACTA Instability Right TKA documented as of this encounter Visit Diagnoses Diagnosis Knee dislocation, left, sequela documented in this encounter Administered Medications Inactive Administered Medications - up to 3 most recent administrations Medication Order MAR Action Action Date Dose Rate Site mupirocin (Bactroban) 2 % ointment 1 each 1 each, Topical (Top), 2 TIMES DAILY, First dose on Thu02/06/21 at 0915, 10 doses, Last dose on Thu02/10/21 at 2100, Apply two times daily to nares for 5 days prior to surgery Given 02/06/2021 8:58 AM EDT 1 each documented in this encounter Care Teams Manager Filter Relationship Specialty Start Date End Date Bhaskar Morales MD PCP - General Family Medicine 12/18/20 documented as of this encounter
--- OUTSIDE RECORDS SUMMARY | 2024-04-14 10:38 | XMS_ITS | Encounter Summary ---
Author Organization [facility] [place] [address] Care Team Providers Care Wood Scaler Name Role Phone Avis Honeycutt APRN Primary Care Provider [phone] Encounter Details Date Type Department Care Team (Late Contact Info) Description 12/17/2020 Ancillary Procedure Radiology Library at [facility] [place] [phone] Avis Honeycutt APRN [address] [place] [address] Social History Tobacco Use Types Packs/Day Years [...] 05/30/2024 10:00 AM EST Appointment Mammography/DXA at [facility] [place] [phone] Alicia Quinteros MD [facility] RADIATION ONCOLOGY [place], [place] [phone] 08/11/2024 4:15 PM EST Office Visit Dermatology at [place] [address] [place] [phone] hJon Giron MD [address], [place] [address] 11/21/2024 2:00 PM EDT Office Visit Radiation Oncology at [address] [phone] Alicia Quinteros MD [facility] [place] [address] 10/06/2029 Hospital Encounter [place] [address] Al Mendez MD [facility] [place] [address] Scheduled Procedures Name Priority Associated Diagnoses Date/Ti me @TOTAL KNEE REVISION ARTHROP LASTY, COMPLETE (WRVU 27.11) Instability Right TKA MODIFIER,GMK REVISION KNEE,MEDACTA Instability Right TKA documented as of this encounter Procedures Procedure Name Priority Date/Time Associated Diagnosis Comments FILM LIBRARY STORAGE ONLY DX KNEE Routine 12/17/2020 12:00 AM EDT documented in this encounter Results * Film Library- Storage Only DX Knee (12/17/2020 12:00 AM EDT) Narrative [facility] - 12/18/2020 9:17 AM EDT This exam is auto-finalizing. It's purpose is for storage only. Avis BLANCAS FILM LIBRARY ORD ERABLES [place], [place] documented in this encounter Visit Diagnoses Not on filedocumented in this encounter Care Teams Wood Scaler Relationship Specialty Start Date End Date Avis Honeycutt APRN [address] [place] [address] PCP - General Family Medicine 05/27/18 12/17/20 documented as of this encounter
--- OUTSIDE RECORDS SUMMARY | 2024-04-14 10:38 | XMS_ITS | Encounter Summary ---
Author Organization [facility] [place] [address] Care Team Providers Care Office Automation Technician Name Role Phone Bhaskar Morales MD Primary Care Provider [phone] Reason for Visit * Reason Comments Establish Care NXR, Left knee pain - SP L TKA 05/02/2015 and R TKA 2017 Dr Foreman * Consultation (Urgent) - Closed Specialty Diagnoses / Procedures Referred By Contmartinez t Referred To Contact Orthopaedics Diagnoses TKA, ROTATING PLATFORM SPINACT FROM DR CALIX Procedures REQUESTING DR AL OR Missael Joseph MD [address] [place] [address] [facility] [address] [place] [address] Referral ID Status Reason Start Date Expiration Date V isits Requested Visits Authorized [id number] Closed Consult, Test & Treat Connection [facility] PCP Updated and/or Approved 12/18/2020 12/18/2021 6 6 Encounter Details Date Type Department Care Team (Late st Contact Info) Description 12/26/2020 4:15 PM EDT Office Visit [place] [address] Al Rodriguez MD [facility] [place] [address] Left knee pain, unspecified chronicity; Presence of [...] Sign Reading Time Taken Comments Blood Pressure 137/73 12/26/2020 3:55 PM EDT Pulse 98 12/26/2020 3:55 PM EDT Temperature - - Respiratory Rate - - Oxygen Saturation - - Inhaled Oxygen Concentration - - Weight 137.9 kg (304 lb) 12/26/2020 3:55 PM EDT Height 154.9 cm (5' 1) 12/26/2020 3:55 PM EDT Body Mass Index 57.44 12/26/2020 3:55 PM EDT documented in this encounter Progress Notes * Chanelle Gaming PA - 12/26/2020 4:15 PM EDT Images from the original note were not included. Department of Orthopaedics Division of Adult Joint Reconstructive Surgery CHIEF COMPLAINT: Chief Complaint Patient presents with ??? Establish Care NXR, Left knee pain - SP L TKA 05/02/2015 and R TKA 2017 Dr Foreman ARTHROPLASTY HISTORY/PREVIOUS KNEE SURGERY: 1. Left TKA 05/02/15 (Kellen) 2. RIGHT TKA 2017 (Kellen) Quin was referred from Missael Calix MD [address] [place] [id number] I.D.: Quin Santana is a 55 y.o. year old female being seen today to discuss her left knee. Her history and physical exam were reviewed in detail. Quin had her LEFT knee arthroplasty done in 2014. Things went well after this. She underwent RIGHTTKA in 2018. 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 She underwent radiation treatment for this. 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 Four months or so was doing PT again. One day a week at the pool, one day a week at the pool. During one of her pool sessions, she was doing squats. She felt a shift in the knee. When she climbed out of the pool she felt unstable. At the next PT She then went back to PT. Her PT examined her and felt that this was bursitis, and a cyst in the back. Things did not resolve and she was sent to Dr. Calix for evaluation (Dr. Foremna who is retired). His recommendation would be for surgical management. Revised femoral component with posterior stabilized implant with potential for hinge. Concern for posterior capsule adhesions, vascular injury, recommend [facility] [place]. WW started on week ago and lost 10.2 lbs. 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 She will be on the second floor of a building. She has some numbness. She has a lot of clicking now which is not painful. Does not feel stable. Difficult to roll over in bed. QUESTIONNAIRE RESPONSES: General Health, Prior Treatments, PreExisting Condition, Health Habits, About You 12/25/2020 PROMIS-10 General Health Good PROMIS-10 Quality of Life Very Good PROMIS-10 Physical Health Good PROMIS-10 Mental Health Good PROMIS-10 Social Activity Very Good PROMIS-10 Everyday Activities Moderately PROMIS-10 Pain 5 PROMIS-10 Fatigue Mild PROMIS-10 Social Roles Very Good PROMIS-10 Anxious or Depressed Sometimes PROMIS PHYSICAL SCORE (range 16-68) 42.3 PROMIS MENTAL SCORE (range 21-68) 48.3 Treatments Tried Regular exercise, Walking aids (e.g.cane, walker), Physical therapy, Acetaminophen(e.g. Tylenol), Over the counter anti-inflammatory drugs (e.g Advil, Aspirin, Aleve), Prior surgeryfor this problem Prior Surgery Total knee replacements on both knees:, Left knee 05/02/15, Right Knee 11/25/17 KOOS JR Scores 59.38 TKA Grade 3 Alzheimers or dementia No Cirrohosis or liver disease No HIV/AIDS No Pain in more than one joint in legs Yes Back or neck pain No Heart attack No Heart failure No Unclog/bypass leg arteries No Stroke, blood clot, TIA No Asthma Yes Take medication for asthma Yes Emphysema, chronic bronchities, or COPD No Stomach ulcers/peptic ulcer disease No Diabetes No Poor kidney function No Rheumatic condtions No Cancer Yes Cancer spread No Leukemia or polycythemia vera No Lymphoma No Weight (lbs) 304 Height (feet) 5 feet Height (Inches) 1 BMI 57.43 Ever used tobacco products No Ever used alcoholic beverages No Live Alone Yes Marital situation Single (never ) Schooling More than 4 - year college Combined Household Income $50,000 to less than $75,000 # People Supported 1 Welsh, , No, not Welsh// Race White Health Literacy Extremely Currently working Yes Current job situation Full-time [facility] Response 12/25/2020 KOOS JR Scores 59.38 Spine [facility] Response 12/25/2020 KOOS JR Scores 59.38 ALLERGIES Allergies Allergen Reactions ??? Hymenoptera Allergenic Extract Anaphylaxis Stinging insects ??? Penicillins SOCIAL HISTORY: reports that she has never smoked. She has never used smokeless tobacco. She reports that she does not drink alcohol and does not use drugs. 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 Ductal carcinoma in situ (DCIS) of left breast D05.12 VITALS: BP Readings from Last 1 Encounters: 12/26/20 137/73 Pulse Readings from Last 1 Encounters: 12/26/20 98 Height: 154.9 cm (5' 1) Weight: (!) 137.9 kg (304 lb) Body mass index is 57.44 kg/m??. PHYSICAL EXAM: Constitution: Quin sits in the clinic today alert, appears stated age and cooperative. The patientis alert and oriented. I have made the following determinations: Knee Exam: Left Prior surgery on this joint: Yes Knee ROM: Extension:-5 Flexion: 120 Alignment: 0-4 degrees Neutral Stability: A/P Translation <5mm Varus (lateral stability) <5mm Valgus (medial stability) <5mm Extension La degrees or less Patella Tracking: Normal Skin Integrity: Normal Pulses Palpable: Left PT:Yes Left DP:Yes Motor/Sensory: Distal Motor:Normal Distal Sensory: Normal Quadriceps Strength:4 Knee Effusion: None. Ecchymosis: none Patella: Patellar apprehension test: no Patellar compression test: no Tenderness: lateral joint line and lateral femoral condyle IMAGING: X-rays of the left knee demonstrate medial femoral condyle component appears to be resting directlyon the medial tibial component with no apparent poly taking up space. ASSESSMENT AND PLAN: Ms. Santana is a 55 y.o. year old female with extruded poly of the LEFT knee. Pt seen and plan discussed in conjunction with Dr. Rodriguez. We had an extensive discussion regarding Quin's current troubles and options for treating the issue. At this point, her imaging is showing an extruded polyethalene component. There is potential for poly fracture, however this is unlikely. She is feeling unstable during her activities. She has no clear indication of infection, however whenever we have an arthroplasty component that becomes dislodged, we do want to rule that out. Dr. Rodriguez's suggestions for treatment at this time would be surgical management. There is no conservative treatment that would offer her a highly function knee. Her current replacement is a cruciate retaining design. The posterior ligament is intended to support the knee in flexion however at this point the PCL is likely not competent. Dr. Rodriguez's recommendation would be for obtaining infectious labs. If these are elevated we would likely aspirate the knee. We discussed surgical options. If we were to simply exchange the poly, this does run the risk that the polyethylene could spin out again. He would recommend using a system thatwould help maintain a highly functional knee. He expects to use an Medacta component which hinges th us not allowing the component to spin. We discussed the timing of the needed surgery. If infection is a concern after obtaining the infectious labs and aspirate we would need to plan for more urgent surgery. This would likely need to be a staged surgery in which we place an antibiotic spacer, she undergoesIV antibiotics. After a lengthy treatment she would undergo a 2 week antibiotic holiday, after which we would re aspirated the knee to send for cultures. If these are benign we would then go back into surgery to replace the antibiotic spacer with a permanent component. If today's infectious labs are benign we have a bit of time however there is always concerned that the longer this polyethylene is extruded posteriorly the higher the risk of damage to vascular structures. Pollo would like to wait until Thanksgiving however we do not feel that this would be the mostprudent decision. Our suggestion would be surgery in 2 to 4 weeks. This would allow her some time to plan for her classes. Quin agreed with the plan. She signed consent today with Dr. Rodriguez. Please see his note for furtherdetails. Dr. Rodriguez will place orders. Quin will come in for a preop visit. She will meet with Dr. Fuchs for preop health optimization Potential barriers to total joint arthroplasty: -BMI > 40: Yes -Active Tobacco use: No -Diabetes with hemoglobin A1C > 7.5: No Anaphylaxis reactions with Penicillins and Bee stings. Recent Results (from the past 24 hour(s)) Sedimentation rate Result Value Ref Range Sed Rate 38 2 - 39 mm/hr CRP, acute inflammation Result Value Ref Range CRP <3.0 <=4.9 mg/L Hemogram Result Value Ref Range WBC 8.3 4.0 - 9.5 x10(3)/mcL RBC 4.89 4.00 - 5.21 x10(6)/mcL Hemoglobin 13.1 11.7 - 15.5 gm/dL Hematocrit 40.8 35.7 - 45.8 % MCV 83.4 82.6 - 94.4 fL MCH 26.8 (L) 27.1 - 32.0 pg MCHC 32.1 31.7 - 35.0 gm/dL Platelets 286 145 - 357 x10(3)/mcL RDWSD 45.1 37.0 - 46.0 fL RDWCV 14.7 (H) 11.5 - 14.1 % MPV 10.9 7.6 - 12.9 fL nRBC % Auto 0.0 % nRBC Abs Auto 0.000 0.000 - 0.000 x10(3)/mcL Differential, Automated Result Value Ref Range Neutrophils % 62.7 % Neutr Abs (ANC) 5.18 1 - 6 x10(3)/mcL Lymphocytes % 25.1 % Lymphocytes Abs 2.1 0.9 - 3.2 x10(3)/mcL Monocytes % 9.2 % Monocyte Abs 0.8 0.3 - 0.9 x10(3)/mcL Eosinophils % 2.3 % Eosinophils Abs 0.2 0.0 - 0.4 x10(3)/mcL Basophils % 0.5 % Basophils Abs 0.0 0.0 - 0.1 x10(3)/mcL Immature Gran % 0.20 % Kiara Gran Abs 0.02 0.00 - 0.04 x10(3)/mcL Chanelle Casey Brookss, PA documented in this encounter Miscellaneous Notes * Addendum Note - Al Rodriguez MD - 12/26/2020 4:15 PM EDTAddended by: AL RODRIGUEZ on: 12/31/2020 01:06 PM Modules accepted: Orders, SmartSet documented in this encounter Plan of Treatment Upcoming Encounters Date Type Department Care Team (Late st Contact Info) Description 05/30/2024 10:00 AM EST Appointment Mammography/[place] [id number] Alicia Quinteros MD [facility] [place] [address] 08/11/2024 4:15 PM EST Office Visit Dermatology at [address] [place] [address] Jhon Giron MD [address] [facility] [place] [address] 11/21/2024 2:00 PM EDT Office Visit Radiation Oncology at [address] [phone] Alicia Quinteros MD [facility] [place] [address] 10/06/2029 Hospital Encounter [place] [phone] Al Rodriguez MD [facility] [place] [address] Scheduled Procedures Name Priority Associated Diagnoses Date/Ti me @TOTAL KNEE REVISION ARTHROP LASTY, COMPLETE (WRVU 27.11) Instability Right TKA MODIFIER,GMK REVISION KNEE,MEDACTA Instability Right TKA documented as of this encounter Results * XR Knee Standing Alignment AP Lat [place] Left (03/20/2021 1:43 PM EDT) Anatomical Region [...] questions please contact the health client care consultant that requested your imaging first. ? Electronically signed by: Sampson Johns MD, [facility] ([phone]), at 03/20/2021 1:48 PM Narrative 03/20/2021 1:48 PM EDT EXAMINATION: XR [...] have questions please contactthe health client care consultant that requested your imaging first. Al Rodriguez MD IMG DX ORDERABLES * APTT (02/06/2021 11:02 AM EDT) Pathologist [facility] Partial Thromboplastin Time 35 25 - 37 sec [facility] Comment: The PTT is NOT appropriate for heparin monitoring. Use the Anti-Xa level for heparin monitoring (HEP UFH) or LMWH monitoring (HEP LMW). A PTT less than 37 seconds generally indicates adequate hemostasis. Blood 02/06/2021 11:0 2 AM EDT 02/06/2021 11:08 AM EDT Narrative Resulting Agency Comment Spec In Lab Al Rodriguez MD HEMATOLOGY ORDERABLE S [facility] [place] [address] * Prothrombin Time (02/06/2021 11:02 AM EDT) Prothrombin Time 12.1 9.4 - 12.5 sec [facility] International Normalization Ratio 1.1 [facility] Comment: An INR <2.0 [...] Resulting Agency Comment Spec In Lab Al Rodriguez MD HEMATOLOGY ORDERABLE S [facility] [place] [address] * (ABNORMAL) Basic Metabolic Panel (non-fasting) (02/06/2021 11:02 AM EDT) Pathologist [facility] Glucose 118 65 - 199 mg/dL [facility] Comment:Diabetes: >=200 mg/d L plus symptoms Blood Urea Nitrogen 24(H) 8 - 18 mg/dL [facility] Creatinine 0.85 0.70 - 1.20 mg/dL [facility] Sodium 140 135 - 145 mmol/L [facility] Potassium 4.3 3.5 - 5.0 mmol/L [facility] Comment: Please note: ??Patients with WBC >100,000 may have falsely elevated Potassium levels. ??For accurate Potassium quantification in these patients send serum separator tube (gold top) for subsequent determinations. ??Contact the Clinical Chemistry Laboratory if there are any questions. Chloride 101 98 - 107 mmol/L [facility] Carbon Dioxide 29 22 - 31 mmol/L [facility] Anion Gap 10 5 - 15 mmol/L [facility] Calcium 10.7(H) 8.5 - 10.5 mg/dL [facility] Est Glomerular Filtration Rate 77 >=60 mL/min/1. 73 m?? [facility] Comment: This patient? s [...] Resulting Agency Comment Spec In Lab Al Rodriguez MD CHEMISTRY ORDERABLES Performing Organization Address [facility] Co de Phone Number [facility] [place] [address] * EKG 12 Lead (02/06/2021 10:57 AM EDT) Ventricular rate 69 BPM MUSE SYSTEM Atrial Rate 69 BPM MUSE SYSTEM P-R Interval 172 ms MUSE SYSTEM QRS Duration 102 ms MUSE SYSTEM Q-T Interval 412 ms MUSE SYSTEM QTC Calculated (Bezet) 441 ms MUSE SYSTEM Calculated P Randall -19 degrees MUSE SYSTEM Calculated R Randall 44 degrees MUSE SYSTEM Calculated T Randall 28 degrees MUSE SYSTEM INTERPRETATION Normal sinus rhythm Normal ECG No previous ECGs available Confirmed by MD MARIA FERNANDA, [place] ([id number]) on 02/06/2021 11:46:46 AM MUSE SYSTEM 02/06/2021 10:5 7 AM EDT 02/06/2021 11:46 AM EDT Al Rodriguez MD ECG ORDERABLES Performing Organization Address [facility] Co de Phone Number MUSE SYSTEM * Sedimentation rate (12/26/2020 5:15 PM EDT) Sedimentation Rate Automated 38 2 - 39 mm/hr [facility] Comment: Effective May 18, 2019 new capillary photometric technology has resulted in a change in reference ranges. It is recommended that each ESR result be reviewed with its own age appropriate reference range. Blood 12/26/2020 5:15 PM EDT 12/26/2020 5:21 PM EDT Narrative Resulting Agency Comment Spec In Lab Al Rodriguez MD HEMATOLOGY ORDERABLE S Performing Organization Address City/[facility] Co de Phone Number [facility] [place] [address] * CRP, acute inflammation (12/26/2020 5:15 PM EDT) C-Reactive Protein <3.0 <=4.9 mg/L [facility] Blood 12/26/2020 5:15 PM EDT 12/26/2020 5:21 PM EDT Narrative Resulting Agency Comment Spec In Lab Al Rodriguez MD CHEMISTRY ORDERABLES Performing Organization Address [facility] Co de Phone Number [facility] [place] [address] documented in this encounter Visit Diagnoses Diagnosis Left knee pain, unspecified chronicity Presence of left artificial knee joint Knee joint replacement by other means Status post left knee replacement Knee dislocation, left, sequela Left knee pain, unspecified chronicity Presence of left artificial knee joint Knee joint replacement by other means Status post left knee replacement Knee dislocation, left, sequela documented in this encounter Care Teams Office Automation Technician Relationship Specialty Start Date End Date Bhaskar Morales MD PCP - General Family Medicine 12/18/20 documented as of this encounter
--- OUTSIDE RECORDS SUMMARY | 2024-04-14 10:38 | XMS_ITS | Encounter Summary ---
[place] [address] Care Team Providers Care Bellhop Service Captain Name Role Phone Bhaskar Morales MD Primary Care Provider [phone] Encounter Details Date Type Department Care Team (Latest Contact Info) Description 12/26/2020 5:10 PM EDT Laboratory Appointment Lab [address] [place] [address] Left knee pain, unspecified chronicity; Presence of left artificial knee joint; Status post left knee replacement Social History Tobacco Use Types [...] 05/30/2024 10:00 AM EST Appointment Mammography/[place] [address] Alicia Quinteros MD [facility] [place] [address] 08/11/2024 4:15 PM EST Office Visit Dermatology at [place] [address] [place] [address] Jhon Giron MD [address], [place] [address] 11/21/2024 2:00 PM EDT Office Visit Radiation Oncology at [address] [address] Alicia Quinteros MD [facility] [place] [address] 10/06/2029 Hospital Encounter [place] [address] Al Mendez MD [facility] [place] [address] Scheduled Procedures Name Priority Associated Diagnoses Date/Ti me @TOTAL KNEE REVISION ARTHROP LASTY, COMPLETE (WRVU 27.11) Instability Right TKA MODIFIER,GMK REVISION KNEE,MEDACTA Instability Right TKA documented as of this encounter Procedures Procedure Name Priority Date/Time Associated Diagnosis Comments HC C-REACTIVE PROTEIN STAT 12/26/2020 5:15 PM EDT Left knee pain, unspecified chronicity Presence of left artificial knee joint Status post left knee replacement HEMOGRAM STAT 12/26/2020 5:15 PM EDT Left knee pain, unspecified chronicity Presence of left artificial knee joint Status post left knee replacement DIFFERENTIAL, AUTOMATED STAT 12/26/2020 5:15 PM EDT Left knee pain, unspecified chronicity Presence of left artificial knee joint Status post left knee replacement HC ESR-SEDIMENTATION RATE, BLOOD STAT 12/26/2020 5:15 PM EDT Left knee pain, unspecified chronicity Presence of left artificial knee joint Status post left knee replacement HC CBC,PLT & AUTO DIFF STAT 12/26/2020 5:15 PM EDT Left knee pain, unspecified chronicity Presence of left artificial knee joint Status post left knee replacement documented in this encounter Results * Differential, Automated (12/26/2020 5:15 PM EDT) Neutrophil % 62.7 % [facility] Neutrophil Absolute 5.18 1.70 - 6.10 x10(3)/[facility] Lymph % 25.1 % [facility] Lymphocytes Abs 2.1 0.9 - 3.2 x10(3)/[facility] Monocyte % 9.2 % [facility] Monocyte Abs 0.8 0.3 - 0.9 x10(3)/[facility] Eos % 2.3 % [facility] Eosinophils Abs 0.2 0.0 - 0.4 x10(3)/[facility] Basophil % 0.5 % [facility] Baso Absolute 0.0 0.0 - 0.1 x10(3)/[facility] Immature Gran % 0.20 % [facility] Comment: Immature granulocytes(IG's)percentage and absolute count will include metamyelocytes, myelocytes, and promyelocytes. Blood smears from CBCs yielding IG's will be scanned manually for concordance. If this scan disagrees with the automated IG or if promyelocytes are noted, a manual differential will be performed. Immature Gran Absolute 0.02 0.00 - 0.04 x10(3)/[facility] Blood 12/26/2020 5:15 PM EDT 12/26/2020 5:21 PM EDT Narrative Resulting Agency Comment Spec In Lab Chanelle GABRIEL HEMATOLOGY ORDERABLE S [facility] [place] [address] * (ABNORMAL) Hemogram (12/26/2020 5:15 PM EDT) White Blood Cell 8.3 4.0 - 9.5 x10(3)/mc L [facility] Red Blood Cell 4.89 4.00 - 5.21 x10(6)/mc L [facility] Hemoglobin 13.1 11.7 - 15.5 gm/dL [facility] Hematocrit 40.8 35.7 - 45.8 % [facility] Mean Cell Volume 83.4 82.6 - 94.[address] [facility] Mean Cell Hemoglobin 26.8(L) 27.1 - 32.[address] [facility] Mean Cell Hemoglobin Concentration 32.1 31.7 - 35.0 gm/dL [facility] Platelet 286 145 - 357 x10(3)/ L [facility] RDW Standard Deviation 45.1 37.0 - 46.[address] [facility] RDW coefficient of variation 14.7(H) 11.5 - 14.1 % [facility] Mean Platelet Volume 10.9 7.6 - 12.[address] [facility] NRBC% auto 0.0 % [facility] NRBC Absolute 0.000 0.000 - 0.000 x10(3)/ L [facility] Blood 12/26/2020 5:15 PM EDT 12/26/2020 5:21 PM EDT Narrative Resulting Agency Comment Spec In Lab Chanelle GABRIEL HEMATOLOGY ORDERABLE S [facility] [place] [address] * CRP, acute inflammation (12/26/2020 5:15 PM EDT) Pathologist [facility] C-Reactive Protein <3.0 <=4.9 mg/L [facility] Blood 12/26/2020 5:15 PM EDT 12/26/2020 5:21 PM EDT Narrative Resulting Agency Comment Spec In Lab Al Mendez MD CHEMISTRY ORDERABLES Performing Organization Address City/[facility]/ZIP Co de Phone Number [facility] [place] [address] * Sedimentation rate (12/26/2020 5:15 PM EDT) Sedimentation Rate Automated 38 2 - 39 mm/hr [facility] Comment: Effective May 18, 2019 new capillary photometric technology has resulted in a change in reference ranges. It is recommended that each ESR result be reviewed with its own age appropriate reference range. Blood 12/26/2020 5:15 PM EDT 12/26/2020 5:21 PM EDT Narrative Resulting Agency Comment Spec In Lab Al Mendez MD HEMATOLOGY ORDERABLE S Performing Organization Address City/[facility]/ZIP Co de Phone Number [facility] [place] [address] documented in this encounter Visit Diagnoses Diagnosis Left knee pain, unspecified chronicity Presence of left artificial knee joint Knee joint replacement by other means Status post left knee replacement documented in this encounter Care Teams Bellhop Service Captain Relationship Specialty Start Date End Date Bhaskar Morales MD PCP - General Family Medicine 12/18/20 documented as of this encounter
--- OUTSIDE RECORDS SUMMARY | 2024-04-14 10:39 | XMS_ITS | Encounter Summary ---
Author Organization [facility] [place] [address] Care Team Providers Care International Trade Compliance Manager Name Role Phone WilfredoAvis ortiz LEVON Primary Care Provider [phone] Encounter Details Date Type Department Care Team (Late st Contact Info) Description 06/09/2018 Notes Only Hematology [place] [address] Dana Butler APRN [facility] [address] HEMATOLOGY [place] [address] Social History Tobacco Use Types Packs/Day Years Used Date Smoking Tobacco: Never Smokeless Tobacco: Never Sex and Gender Information Value Date Recorded Sex Assigned at Female 07/24/2020 2:32 PM EST Gender Identity Not on file Sexual Orientation Straight 07/24/2020 2: 32 PM EST documented as of this encounter Progress Notes * Dana Butler, RN - 06/09/2018 11:02 AM EST [id number]: Preclinical study of the aryl hydrocarbon receptor and other biomarkers in human adipose tissue and their potential links among obesity and breast cancer Date: 06/09/2018 Objective of visit: Meet with patient in 3K clinic to provide information regarding protocol [id number], answer questions or concerns about study plan and evaluate interest in study participation. Information Provided: Protocol was reviewed with patient including, a description of the proposed blood, tissue and questionnaires and follow-up including duration of subject???s participation in study. Potential discomforts and risks were reviewed. The patient was informed regarding the uncertainties, both in terms of benefit as well as risks that are part of participation in this clinical trial. Discussed confidentiality of patient???s health information as specified in the protocol. Pt was advised that she may discontinue treatment at any time and that refusing to participate or discontinuing treatment will not compromise the patient???s access to treatment options or care. The patient was given written information regarding the protocol and was offered adequate time to review the information. The patient was given adequate time to ask questions and review concerns, all of which were answered to the patient???s satisfaction. She is happy to participate. Oncology Vitals 06/09/2018 Weight (kg) 126.554 kg Weight (lb) 279 lb Height 158 cm BSA (Calculated - sq m) 2.36 BMI (Calculated) 50.69 Temp 98.4 Temp src 101 Pulse 93 Resp 18 BP 124/69 BP Location Left arm SpO2 97 Pain Level 0 6.1 Inclusion Criteria A. Male or female patients Female B. Age of 18 years to 75 years old 52 yo C. A clinical indication for breast or abdominal surgery breast ca er/pr+ DCIS D. A body mass index (BMI) equal to or greater than 19 50.7 E. Medical condition and performance status appropriate for surgery. yes 6.2 Exclusion Criteria A. Current diagnosis of unresected GI malignancy No B. Inability or unwillingness to have surgery No C. Unable to consent No D. or lactating female patients No E. Ongoing or active systemic infection No F. Subjects who have had a >10% weight loss in the previous 3 months or have received chemotherapy in the previous month so as to minimize perturbed metabolic states. No G. Men who are having surgery for breast cancer. N/A Assessment/Outcome: Consent to participate language: Patient verbalized understanding of protocol and consents for treatment. Patient signed and dated consent, copy given to patient. She consents to have a tissue sample from the affected breast biopsy from the affected site. After signing consent she completed study questionnaire. Waist measurement was 49 inches. Original, signed informed consent document scanned into patient???s electronic medical record and original hard copy given to ISAAC Espinal. Written informed consent was obtained prior to any study procedures being done. Plan: 1. Eligibility will be reviewed and patient will be enrolled on study [id number] per her consent. 2. Orders will be placed for study lab and tissue sample to be taken day of procedure; which will conclude her participation in the study. Dr. Bradshaw's lab notified. documented in this encounter Plan of Treatment Upcoming Encounters Date Type Department Care Team (Late st Contact Info) Description 05/30/2024 10:00 AM EST Appointment Mammography/[place] [phone] Alicia Quinteros MD [facility] [place] [address] 08/11/2024 4:15 PM EST Office Visit Dermatology at [address] [place] [address] Jhon Giron MD [address] [place] [address], [place] [address] 11/21/2024 2:00 PM EDT Office Visit Radiation Oncology at [address] [address] Alicia Quinteros MD [facility] [place] [address] 10/06/2029 Hospital Encounter [place] [phone] Al Mendez MD [facility] [place] [address] Scheduled Procedures Name Priority Associated Diagnoses Date/Ti me @TOTAL KNEE REVISION ARTHROP LASTY, COMPLETE (WRVU 27.11) Instability Right TKA MODIFIER,GMK REVISION KNEE,MEDACTA Instability Right TKA documented as of this encounter Visit Diagnoses Not on filedocumented in this encounter Care Teams International Trade Compliance Manager Relationship Specialty Start Date End Date Avis Honeycutt, CARE PROCESS MANAGER [address] [place] [address] PCP - General Family Medicine 05/27/18 12/17/20 documented as of this encounter
--- OUTSIDE RECORDS SUMMARY | 2024-04-14 10:39 | XMS_ITS | Encounter Summary ---
[place] [address] Care Team Providers Care Plasma Center Technician Name Role Phone TangelaAvis LEVON Primary Care Provider [phone] Encounter Details Date Type Department Care Team (Late st Contact Info) Description 06/21/2018 Telephone Hematology [place] [phone] Audrey Shannon RN Social History Tobacco Use Types Packs/Day Years Used Date Smoking Tobacco: Never Smokeless Tobacco: Never Sex and Gender Information Value Date Recorded Sex Assigned at Female 07/24/2020 2:32 PM EST Gender Identity Not on file Sexual Orientation Straight 07/24/2020 2: 32 PM EST documented as of this encounter Miscellaneous Notes * Telephone Encounter - Audrey Shannon RN - 06/21/2018 11:31 AM EST Comprehensive Breast Program (CBP) Note Quin Santana is a 52 y.o. female with recently diagnosed ER/WI+ left breast DCIS ([place]opsy 05[place]/2018at [facility] scheduled for partial mastectomy on 06/24/[address] Zee. ?? Reason for call: Contacted patient to check in with her before upcoming surgery. Quin states it's just sinking in that this is not just going in and taking out a lump, that more is involved. Her parents are coming up from [place] to be with her during surgery. She states the whole process has been a tad overwhelming; sometimes even the support she receives from friends/family can be overwhelming. 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 The support has been very helpful. Plan: Quin Santana plans for surgery on 06/24 and did not have any questions at this time. She has our contact numbers. Post surgical appts. and radiation oncologist consult ([facility]) are scheduled. documented in this encounter Plan of Treatment Upcoming Encounters Date Type Department Care Team (Late st Contact Info) Description 05/30/2024 10:00 AM EST Appointment Mammography/[place] [phone] Alicia Quinteros MD [facility] [place] [address] 08/11/2024 4:15 PM EST Office Visit Dermatology at [address] [place] [phone] Jhon Giron MD [address] [place] [address] RD, [place] [address] 11/21/2024 2:00 PM EDT Office Visit Radiation Oncology at [address] [phone] Alicia Quinteros MD [facility] [place] [address] 10/06/2029 Hospital Encounter [place] [phone] Al Mendez MD [facility] [place] [address] Scheduled Procedures Name Priority Associated Diagnoses Date/Ti me @TOTAL KNEE REVISION ARTHROP LASTY, COMPLETE (WRVU 27.11) Instability Right TKA MODIFIER,GMK REVISION KNEE,MEDACTA Instability Right TKA documented as of this encounter Visit Diagnoses Not on filedocumented in this encounter Care Teams Plasma Center Technician Relationship Specialty Start Date End Date Avis Honeycutt, CORRECTIONAL COUNSELOR/CASE MANAGER [address] [place] [address] PCP - General Family Medicine 05/27/18 12/17/20 documented as of this encounter
--- OUTSIDE RECORDS SUMMARY | 2024-04-14 10:39 | XMS_ITS | Encounter Summary ---
Author Organization [facility] [address] Care Team Providers Care Electrician Underground Name Role Phone Avis Honeycutt LEVON Primary Care Provider [phone] Reason for Visit * Reason Onset Date Comments Other 08/19/2018 Encounter Details Date Type Department Care Team (Late st Contact Info) Description 08/19/2018 Telephone [place] [phone] Alicia Quinteros MD [facility] [place] [address] Other Social History Tobacco Use Types Packs/Day [...] Telephone Encounter - Alicia Quinteros MD - 08/19/2018 8:44 AM EDT I called Quin's home & mobile #'s to discuss results of CTsim & left voicemail informing her of my contact information. documented in this encounter Plan of Treatment Upcoming Encounters Date Type Department Care Team (Late st Contact Info) Description 05/30/2024 10:00 AM EST Appointment Mammography/[place] [address] Alicia Quinteros MD [facility] [place] [address] 08/11/2024 4:15 PM EST Office Visit Dermatology at [address] [place] [address] Jhon Giron MD [address], [place] [address] 11/21/2024 2:00 PM EDT Office Visit Radiation Oncology at [address] [phone] Alicia Quinteros MD [facility] [place] [address] 10/06/2029 Hospital Encounter [place] [phone] Al Mendez MD [facility] [place] [address] Scheduled Procedures Name Priority Associated Diagnoses Date/Ti me @TOTAL KNEE REVISION ARTHROP LASTY, COMPLETE (WRVU 27.11) Instability Right TKA MODIFIER,GMK REVISION KNEE,MEDACTA Instability Right TKA documented as of this encounter Visit Diagnoses Diagnosis Malignant neoplasm of upper-outer quadrant of left female breast, unspecified estrogen receptor status documented in this encounter Care Teams Electrician Underground Relationship Specialty Start Date End Date Avis Honeycutt APRN [address] [place] [address] PCP - General Family Medicine 05/27/18 12/17/20 documented as of this encounter
--- OUTSIDE RECORDS SUMMARY | 2024-04-14 10:39 | XMS_ITS | Encounter Summary ---
[place] [address] Care Team Providers Care Loader Engineer Name Role Phone WilfredoAvis ortiz LEVON Primary Care Provider [phone] Reason for Visit * Reason Onset Date Comments Appointment 09/15/2018 Encounter Details Date Type Department Care Team (Late st Contact Info) Description 09/15/2018 Telephone [place] [phone] Kady Roman Appointment Social History Tobacco Use Types Packs/Day [...] encounter Miscellaneous Notes * Telephone Encounter - Kady Roman - 09/15/2018 4:03 PM EDT Caller and relationship to patient (if other than patient): DIANA Office [place] Best time to reach caller: Soon Message or Reason for Call: Referral sent over a week ago, patient hasn't heard from ENDO to schedule. Please call phone number above Appt Needed and Reason: Yes Provider: SANDY documented in this encounter Plan of Treatment Upcoming Encounters Date Type Department Care Team (Late st Contact Info) Description 05/30/2024 10:00 AM EST Appointment Mammography/[place] [address] Alicia Quinteros MD [facility] [place] [address] 08/11/2024 4:15 PM EST Office Visit Dermatology at [place] [address] [place] [phone] Jhon Giron MD [address], [place] [address] 11/21/2024 2:00 PM EDT Office Visit Radiation Oncology at [address] [phone] Alicia Quinteros MD [facility] [place] [address] 10/06/2029 Hospital Encounter [place] [address] Al Mendez MD [facility] [place] [address] Scheduled Procedures Name Priority Associated Diagnoses Date/Ti me @TOTAL KNEE REVISION ARTHROP LASTY, COMPLETE (WRVU 27.11) Instability Right TKA MODIFIER,GMK REVISION KNEE,MEDACTA Instability Right TKA documented as of this encounter Visit Diagnoses Not on filedocumented in this encounter Care Teams Loader Engineer Relationship Specialty Start Date End Date Avis Honeycutt APRN [address] [place] [address] PCP - General Family Medicine 05/27/18 12/17/20 documented as of this encounter
--- OUTSIDE RECORDS SUMMARY | 2024-04-14 10:39 | XMS_ITS | Encounter Summary ---
Author Organization Formerly [facility] [place] [address] Care Team Providers Care Supervisor Coin Machine Name Role Phone TangelaAvis LEVON Primary Care Provider [phone] Reason for Visit * Consultation (Routine) - Closed Specialty Diagnoses / Procedures Referred By Agus govea Referred To Contact Endocrinology Diagnoses Malignant neoplasm of upper-outer quadrant of left female breast, unspecified estrogen receptor status Multiple thyroid nodules Alicia Quinteros MD [facility] [place] [address] [facility] Endocrinology [address] [place] [phone] Referral ID Status Reason Start Date Expiration Date V isits Requested Visits Authorized [id number] Closed Consult, Test & Treat 09/07/2018 09/07/2019 1 1 Encounter Details Date Type Department Care Team (Late st Contact Info) Description 10/12/2018 3:00 PM EDT Office [place] [address] Dago Paz MD [facility] [place] [address] Multiple thyroid nodules Social History Tobacco Use Types Packs/Day [...] Sign Reading Time Taken Comments Blood Pressure 138/80 10/12/2018 3:01 PM EDT Pulse 109 10/12/2018 3:01 PM EDT Temperature - - Respiratory Rate - - Oxygen Saturation 98% 10/12/2018 3:01 PM EDT Inhaled Oxygen Concentration - - Weight 127.9 kg (282 lb) 10/12/2018 3:01 PM EDT Height 154.9 cm (5' 1) 10/12/2018 3:01 PM EDT Body Mass Index 53.28 10/12/2018 3:01 PM EDT documented in this encounter Progress Notes * Dago Paz MD - 10/12/2018 3:00 PM EDT Images from the original note were not included. Ms. Quin Santana is an 53 y.o. female who presents in consultation for chief complaint of thyroid nodule Referred by: Alicia Quinteros MD Thyroid nodules seen on CT of chest incidentally as part of workup for breast cancer XRT, and patient presents here with her friend to discuss further evaluation and management. Notably patient received XRT for breast cancer (left breast) which completed within last several weeks. No other XRT to head/neck region. For her left breast cancer, she underwent lumpectomy followedby XRT. She is due to undergo genetic testing soon. She tells me she has [employer] heritage and this was part of reason for this testing. After the testing, she will decide with her oncologistabout whether to start tamoxifen. She has no previous history of thyroid disease. 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 BREAST REDUCTION SURGERY Bilateral 1995 ??? KNEE SURGERY Bilateral ??? MAMMO STEREOTACTIC BIOPSY LEFT N/A 05/10/2018 Mammo Stereotactic Biopsy Left 05/10/2018 Jinny Gutierrez MD [facility] RAD MAMMOGRAPHY ??? PRO MASTECTOMY, PARTIAL Left 06/24/2018 MASTECTOMY PARTIAL (WRVU 10.13) performed by Frances Zee MD at [facility] MAIN OR Review of Systems: HEENT: Difficulty swallowing: yes[] no[x] Hoarse voice: yes[] no[x] Globus sensation: yes[] no[x] Skin: resolving radiation burn rash in left axillary region Remainder of ROS as per HPI, otherwise it is negative Current Outpatient Medications: ??? BLACK COHOSH ORAL, Take by mouth., Disp: , Rfl: ??? ALPRAZolam (XANAX) 0.5 mg Tablet, Take 0.5 mg by mouth daily as needed., Disp: , Rfl: 0 ??? atorvastatin (LIPITOR) 40 mg Tablet, Take 40 mg by mouth daily., Disp: , Rfl: 0 ??? benazepril (LOTENSIN) 10 mg Tablet, Take 10 mg by mouth daily., Disp: , Rfl: 0 ??? cetirizine (ZYRTEC) 10 mg Tablet, Take 10 mg by mouth daily., Disp: , Rfl: 0 ??? EPINEPHrine 0.3 mg/0.3 mL Auto-Injector, Inject 0.3 mg into the muscle as needed., Disp: , Rfl:0 ??? FLUoxetine 60 mg Tablet, Take 60 mg by mouth daily., Disp: , Rfl: 0 ??? hydroCHLOROthiazide (HYDRODIURIL) 50 mg Tablet, Take 50 mg by mouth daily., Disp: , Rfl: [...] (gastroesophageal reflux disease), HTN (hypertension), and Hypercholesteremia. Past Surgical History: Procedure Laterality Date ??? BREAST REDUCTION SURGERY Bilateral 1996 ??? KNEE SURGERY Bilateral ??? MAMMO STEREOTACTIC BIOPSY LEFT N/A 05/10/2018 Mammo Stereotactic Biopsy Left 05/10/2018 Jinny Gutierrez MD [facility] RAD MAMMOGRAPHY ??? PRO MASTECTOMY, PARTIAL Left 06/24/2018 MASTECTOMY PARTIAL (WRVU 10.13) performed by Frances Zee MD at [facility] MAIN OR Allergies Allergen Reactions ??? Hymenoptera Allergenic Extract Anaphylaxis Stinging insects ??? Penicillins Physical Exam: Patient Vitals for the past 24 hrs: Pulse BP SpO2 10/12/18 1501 (!) 109 138/80 98 % Wt & BMI By Encounter Date Office Visit from 10/12/2018 in Endocrinology at [place] Office Visit from 09/14/2018 in Radiation Oncology at [facility] Weight 127.9 kg (282 lb) 1 10/12/2018 1501 129.2 kg (284 lb 12.8 oz) 1 09/14/2018 1600 BMI 53.28 1 10/12/2018 1501 -- General: no acute distress, pleasant, sitting comfortably Face: not round or red Eyes: no lid lag; normal eye movements Nose/mouth: Nose not enlarged, mucous membranes moist Neck: no supraclavicular fat pads; no palpable thyroid enlargement or palpable nodules Lymphatic: no palpable cervical lymph nodes Respiratory: symmetrical chest expansion, breathing comfortably on room air Cardiovascular: 2+ radial pulse, regular rhythm Musculoskeletal: moving all 4 extremities normally; normal female musculature Skin: normal temperature/texture, no acanthosis Neurological: no tremors, normal gait Psychological: alert/oriented to person, place, time; normal affect; memory intact; normal judgement/insight Radiology Studies: 09/03/18 I personally reviewed these outside US images, and in my review I saw several thyroid nodules. Mostsuspicious is right mid-lower lobe solid isoechoic nodule with punctate echogenic foci Laboratory Data: Component Latest Ref Rng & Units 10/12/2018 TSH 0.27 - 4.20 mcIU/mL 4.39 (H) Free T4 0.93 - 1.70 ng/dL 1.18 Assessment / Plan: 1) Thyroid Nodule: we discussed that by [...] recent XRT therapy. Recommend recheck within 3-6 months A note will be sent to the referring provider Return to clinic to be determined by biopsy result It was a pleasure to be involved in the care of Quin Santana. If you have any questions about the management and treatment plan as outlined above, or if I can be of further assistance, please do nothesitate to contact me. Sincerely, Dago Paz MD Water Meter Installeroutside repairer special Endocrinology Section [facility] * Dago Paz MD - 10/12/2018 3:00 PM EDT ENDOCRINOLOGY THYROID ULTRASOUND REPORT Patient:Quin Santana, [id number] Date of exam: 10/12/2018 Indication: thyroid nodules Comparison:09/03/18 thyroid US Performed by: Dago Paz MD Real time images of the thyroid gland were obtained using a BK US machine. All measurements are given as Longitudinal/Sagittal x AP x Transverse. Right Lobe: The right lobe measures 17mm in the transverse dimension with homogenous echotexture There is a nodule measuring [id number] in the mid.lower pole posteriorly with the following sonographic pattern: iso echogenicity smooth margins +punctate echogenic calcifications in lateral posterior quadrant Wider than tall shape Grade 1-2 peripheral blood flow on color doppler TIRADS 4 nodule There is a small benign colloid cyst that is sub-cm Left Lobe: The thyroid echotexture is homogenous No thyroid nodules are seen Isthmus: The isthmus measures 6mm Lateral neck: I examined the lateral neck regions and saw no morphologically abnormal lymph nodes Impression: TIRADS 4 nodule in right lobe of thyroid * Dago Paz MD - 10/12/2018 3:00 PM EDT THYROID FNA PROCEDURE NOTE: ?? A timeout was held prior to beginning the procedure at which time I confirmed the patient's name, date of , MRN. I had the patient recite back to me the procedure that we are performing, a thyroid FNA. I confirmed the laterality of the procedure. There were no objections to proceeding. ?? I cleaned the biopsy site with alcohol, and used cold numbing spray for patient comfort and to improve hemostasis. I used ultrasound guidance to guide the needle(s) to the biopsy site. The procedure was technically challenging given the posterior/inferior location of the nodule ?? Performed by: Dago Paz MD Number of passes: 5 Biopsy target: Right mid-lower pole nodule Size needle: 27 g Complications: none ?? The patient tolerated the procedure well. Patient was instructed no heavy lifting (>15 lb) for the remainder of the day. I will follow up on the final pathology report. Patient told me it was ok to call with results, and leave message if needed ?? Dago Paz MD Water Meter Installeroutside repairer special Endocrinology Section [facility] ?? documented in this encounter Plan of Treatment Upcoming Encounters Date Type Department Care Team (Late st Contact Info) Description 05/30/2024 10:00 AM EST Appointment Mammography/[place] [address] Alicia Quinteros MD [facility] DR RADI[place] [address] 08/11/2024 4:15 PM EST Office Visit Dermatology at [address] [phone] Jhon Giron MD [address] [place] [address] RD, [place] [address] 11/21/2024 2:00 PM EDT Office Visit Radiation Oncology at [address] [phone] Alicia Quinteros MD [facility] DR RADI[place] [address] 10/06/2029 Hospital Encounter [place] [phone] Al Mendez MD [facility] DR ORTHOPAEDIC [place] [address] Scheduled Procedures Name Priority Associated Diagnoses Date/Ti me @TOTAL KNEE REVISION ARTHROP LASTY, COMPLETE (WRVU 27.11) Instability Right TKA MODIFIER,GMK REVISION KNEE,MEDACTA Instability Right TKA documented as of this encounter Procedures Procedure Name Priority Date/Time Associated Diagnosis Comments NON-WRONG ADDRESS CLERK FINAL REPORT Routine 10/12/2018 5:05 PM EDT CYTOPATHOLOGY NON-GYNECOLOGICAL Routine 10/12/2018 3:52 PM EDT Multiple thyroid nodules documented in this encounter Results * Non-Whittling Room Operator Final Report (10/12/2018 5:05 PM EDT) Diagnosis Discussion [id number] ? Location: 5C The signing pathologist has (i) examined the relevant preparation(s) for the specimen(s) and (ii) rendered or confirmed the diagnosis(es). . ? Non-Whittling Room Operator Final DIAGNOSIS Benign Electronically signed by: ??Long NICOLAS PhD, Jasvir Gleason Verified: ??10/13/2018 ?Pathologist Performed at: ??-[facility] Dept. of Pathology, [place], [place] DISCUSSION Thyroid, right (US-guided FNA): Benign (see note). Cytologic preservation: Adequate. Cellularity (follicular cells): Adequate. Colloid: Present. Macrophages: Inconspicuous. Architectural pattern: Predominantly macrofollicular pattern. Note: Recommend clinicopathologic correlation and follow up as clinically indicated. Reference: Ryan Lanza. The [employer] System for Reporting Thyroid Cytopathology. [place]: Zhou; 2018. CLINICAL INFORMATION Specimen Source : Thyroid, right (US-guided FNA, assisted) Pertinent Clinical Data and Significant Therapy: Right thyroid nodule Clinical Impression : Solid isoechoic nodule with punctate echogenic foci Pertinent Radiologic Findings ??: Size: [id number] Echogenicity: Iso Cystic: No Calcification: Micro Vascularity: Absent/Low Gross Description: Received in CytoLyt approximately 15 mL total volume of clear, colorless fluid. Total Preparation: Liquid-Based Prep 1; Diff-Quik 1; Pap Stain 1. . CLINICAL INFORMATION A separate sample was received for potential molecular testing. Fine Needle Aspiration Immediate Assessment: Evaluation Episode #1 (1 slide): Inadequate for final diagnosis. Deferred. Colloid and rare follicular groups. Immediate Assessment by: ?? Jasvir Alves MD, PhD . Note: The above attending cytopathologist personally examined the Immediate Assessment slides and rendered the Immediate Assessment. Such assessments are preliminary; see Diagnosis and Discussion for final interpretation. 10/13/2018 8:52 AM EDT [facility] THYROID STRUCTURE / Unknown 10/12/2018 5:05 PM EDT 10/12/2018 5:05 PM EDT Dago Paz MD PATHOLOGY/CYTOLOGY ORDERABLES [facility] [place] [address] * Cytopathology Non-Gynecological (10/12/2018 3:52 PM EDT) AP Specimen 10/12/2018 3:52 PM EDT 10/12/2018 3:52 PM EDT Narrative [facility] - 10/12/2018 3:52 PM EDT Specimen requisition ordered. ??Separate Pathology report to follow Dago Paz MD PATHOLOGY/CYTOLOGY ORDERABLES Performing Organization Address [facility]/[place] [address] * (ABNORMAL) TSH (10/12/2018 2:28 PM EDT) Thyroid Stimulating Hormone 4.39(H) 0.27 - 4.20 mcIU/mL [facility] Blood specimen (specimen) 10/12/2018 2:28 PM EDT 10/12/2018 2:37 PM EDT Narrative Resulting Agency Comment Spec In Lab Dago Paz MD CHEMISTRY ORDERABLE S Performing Organization Address [facility] Co de Phone Number [facility] [place] [address] documented in this encounter Visit Diagnoses Diagnosis Multiple thyroid nodules Nontoxic multinodular goiter documented in this encounter Care Teams Supervisor Coin Machine Relationship Specialty Start Date End Date Avis Honeycutt, LEVON [address] [place] [address] PCP - General Family Medicine 05/27/18 12/17/20 documented as of this encounter
--- OUTSIDE RECORDS SUMMARY | 2024-04-14 10:39 | XMS_ITS | Encounter Summary ---
[place] [address] Care Team Providers Care Pumper Helper Name Role Phone Avis Honeycutt APRN Primary Care Provider [phone] Reason for Visit * Auth/Cert Specialty Diagnoses / Procedures Referred By Agus t Referred To Contact Diagnoses LEFT BREAST CANCER Procedures PRO MASTECTOMY, PARTIAL MASTECTOMY PARTIAL (WRVU 10.13) MODIFIER WITH NEEDLE LOC., LESION #1 Referral ID Status Reason Start Date Expiration Date Visits Re quested Visits Authorized [id number] 1 1 Encounter Details Date Type Department Care Team (Late st Contact Info) Description 06/24/2018 9:28 AM EST - 06/24/2018 11:26 AM EST Surgery [place] [id number] Frances Saldaña MD [facility] [place] [address] MASTECTOMY PARTIAL (WRVU 10.13) Social History Tobacco Use Types Packs/Day Years Used Date Smoking Tobacco: Never Smokeless Tobacco: Never Sex and Gender Information Value Date Recorded Sex Assigned at Female 07/24/2020 2:32 PM EST Gender Identity Not on file Sexual Orientation Straight 07/24/2020 2: 32 PM EST documented as of this encounter Last Filed Vital Signs Vital Sign Reading Time Taken Comments Blood Pressure 155/90 06/24/2018 7:48 AM EST Pulse 88 06/24/2018 7:48 AM EST Temperature 36.6 ??C (97.9 ??F) 06/24/2018 7:48 AM ES T Respiratory Rate 16 06/24/2018 7:48 AM EST Oxygen Saturation 99% 06/24/2018 7:48 AM EST Inhaled Oxygen Concentration - - Weight - - Height - - Body Mass Index - - documented in this encounter Discharge Instructions * Discharge Instructions* Virgie Workman RN - 06/24/2018 11:12 AM EST Next dose of acetaminophen (tylenol) can be taken at . * Patient Instructions* Cipriano Aguila MD - 06/24/2018 11:45 AM EST Instructions following Breast Surgery What to Expect Following Surgery: Swelling and/or bruising under and around the incision is normal. It is usually greatest on the second or third day following surgery. If swelling continue or becomes hard with worse pain, call to discuss your symptoms. Your sutures are dissolvable. Your scar will be most visible for 1-2 months following your operation and will gradually fade. As it heals, a scar looks more pink or red than the skin around it. You may feel a ???healing ridge?? directly under the incision. This is normal and will go away when healing is complete. The skin above and below your incision will feel numb. This will improve over several months but some patients may have long-term decrease in sensation over these areas. Incision Care: Your incisions are covered with derma-mcgovern. This is a water proof dressing which will flake off slowly overtime. In 2 days you may shower and get incision wet. Pat dry immediately following. Do not scrub area vigorously for the next 2 weeks. Do not soak incision under water (i.e. bath or swimming) for the next 4 weeks to prevent a wound infection. Do not use any ointments/salves/Vitamin E on the incision until after your first follow-up appointment as these may impair early wound healing. Diet & Activity: No restrictions in your diet are necessary. Limit repetitive movements with your left arm. Activity as tolerated by your comfort level. You may return to work in 3-5 days depending on your recovery. NO DRIVING for at least 8 hours following any dose of an opioid pain medication if one was prescribed for you. Pain Management: Take acetaminophen (Tylenol) 1000mg every 8 hours for the first 3-5 days following surgery to help minimize pain. You may also use NSAIDS like ibuprofen (motrin, advil), naproxen (Naprosyn, Aleve) atdose indicated on the bottle instructions. Use opioid (oxycodone) pain medications for severe pain, and do not take with alcohol. Opioid medications typically cause constipation, so we suggest using a stool softener in addition (metamucil, colace...etc.) You may apply ice or cold packs to the incision for 15-20 minutes several times a day for the first2-3 days following surgery to help with discomfort Follow-up Appointment: Will be scheduled with Dr. Saldaña if not indicated below. Please call [phone] to confirm date and time of your appointment if you do not hear from us inthe week or if you need to make changes. Future Appointments Date Time Provider Department Center 07/07/2018 11:45 AM Frances Saldaña MD [facility] 07/12/2018 8:[address] [facility] 07/12/2018 9:00 AM Alicia Quinteros MD [facility] 07/22/2018 1:00 PM Bill Jeong MD [facility] Call Doctor for: Worsening redness or drainage from your incision lasting longer than 5 days following surgery Any foul-smelling drainage from the incision Fevers greater than 101 degrees F Persistent nausea or vomiting (this may be related to opioid pain medications) Phone number for questions: [phone] before 5 PM weekdays [phone] after 5 PM and on weekends/holidays documented in this encounter Medications at Time of Discharge Medication Sig Dispensed Refills Start Date End Date ALPRAZolam (XANAX) 0.5 mg Tablet Take 0.5 [...] as needed for Wheezing. Use with spacer atorvastatin (LIPITOR) 40 mg Tablet Take 40 mg by mouth daily. 0 05/02/2018 02/06/2021 FLUoxetine 60 mg Tablet Take 60 mg by mouth daily. 0 05/12/2018 11/15/2019 hydroCHLOROthiazide (HYDRODIURIL) 50 mg Tablet Take 25 mg by mouth daily. 0 04/08/2018 01/15/2022 NARCAN 4 mg/actuation [place], Non-Aerosol 4 mg by Nasal route as needed. 0 11/30/2017 07/12/2018 fish oil-omega-3 fatty acids 500 mg Capsule Take 120 mg by mouth. 02/06/2021 documented as of this encounter Progress Notes * Virgie Workman RN - 06/24/2018 12:21 PM EST Awake upon arrival, local anesthesic was used at site; patient denies pain. Ice applied 1215; parents in at 12 noon. Drinking gingerale. Slept off and on 12-1245, awoke with normal vital signs, <1 pain at site. Patient alert and oriented, vital signs stable. Reviewed discharge instructions; patient and parents- all verbalized understanding. Copy of instruction sheet with contact numbers for questions/concerns given. Patient ambulated to bathroom and voided, dressed herself. Handoff to LUIS MANUEL Rainey at 1325. documented in this encounter H&P Notes * Cipriano Aguila MD - 06/24/2018 9:38 AM EST I saw and examined the patient. She has had no change in her health since her last visit with Dr. Saadia Ramírez, nad RRR Breathing comfortably on RA Left breast marked with needle loc in position We will proceed with planned left breast partial mastectomy with needle loc Cipriano Aguila MD documented in this encounter Miscellaneous Notes * Op Note - Frances Saldaña MD - 06/24/2018 1:50 PM EST [facility] Operative Note Patient Name: Quin Santana : [id number] MR#: [id number] Case Date: 06/24/2018 Surgeon: Surgeon(s) and Role: * Frances Saldaña MD - Primary * Cipriano Aguila MD - Resident-Surgeon Ger Preoperative diagnosis: LEFT BREAST CANCER Postoperative diagnosis: LEFT BREAST CANCER Procedure(s) (LRB): MASTECTOMY PARTIAL (WRVU 10.13) (Left) MODIFIER WITH NEEDLE LOC., LESION #1 (Left) Anesthesia: General Estimated Blood Loss: 7cc Specimens removed during surgery: Order Name Source Comment Collection Info Order Time SPECIMEN TO PATHOLOGY LEFT BREAST CANCER left breast partial mastectomy excision Yes 06/24/2018 10:44 AM Number of tissue samples (in container) 1 Time specimen removed from patient: 10:38 AM Biospecimen to store? No SPECIMEN TO PATHOLOGY LEFT BREAST CANCER additional deep margin biopsy 06/24/2018 10:50 AM Number of tissue samples (in container) 1 Time specimen removed from patient: 10:47 AM Drains: Surgical Closure: Primary Closure - skin incision is completely closed without any wires, sabas, drains or other devices Disposition: awakened from anesthesia, extubated and taken to the recovery room in a stable condition, having suffered no apparent untoward event. Condition: doing well without problems (Please see the Surgical Encounter Summary for any Implant and Specimen details pertinent to this patient.) Operative Findings: Specimen mammogram revealed the lesion and residual calcifications to be withinthe surgical specimen. Clip was not near lesion on preop imaging and was not identified in specimenwhich is adequate given it's location. Operative Indications: Quin Santana is a 52F with DCIS here for partial mastectomy. Risks and benefits discussed. Consent signed. Operative Procedure: Quin Santana was admitted through Same-Day Surgery. She was brought up to Radiology where wire localization was performed in the left breast. She was then brought to the Operating Room and laid supine on the operating table. The correct site and allergies were reviewed with the patient prior to sedation. Venodynes were placed on bilateral lower extremities for DVT prophylaxis. Anesthesia was administered and a LMA was placed. The left breast was prepped and draped in sterile fashion. Time-out confirmed the patient's identity, the correct surgical site, and the administration of prophylactic antibiotics. Once this had been confirmed, attention was turned to the left remi st. Lidocaine 1% and Marcaine 0.5% mixed 1:1 was injected into the area and an incision was made inthe lateral breast radially. The wire was brought into the wound and a core of tissue circumferential was widely excised. The tissue was inked on the anatomic margins and sent to Radiology where the lesion was confirmed to be in the surgical specimen.It was close to the deep margin so additional margin was taken. The wound was irrigated and hemostasis was achieved with electrocautery. The wound was closed in 2 layers: 3-0 vicryl interrupted deep dermal sutures followed by 4-0 running monocryl. The surgical areas were cleaned and dried. Surgical glue was applied to the wounds and allowed to dry. A sterile compressive dressing was applied. All counts were correct. The patient awoke from anesthesia, was extubated and brought the recovery room in stable condition. There were no apparent complications. Infection Bundle used? N/A Attestation: Case Date: 06/24/2018 I was present and I participated during the entire procedure. FRANCES SALDAÑA MD * Brief Op Note - Frances Saldaña MD - 06/24/2018 11:44 AM EST Brief Operative Note Patient Name: Quin Santana : [id number] MR#: [id number] Case Date: 06/24/2018 Surgeon: Surgeon(s) and Role: * Frances Saldaña MD - Primary * Cipriano Aguila MD - Resident-Surgeon Ger Preoperative diagnosis: LEFT BREAST CANCER Postoperative diagnosis: LEFT BREAST CANCER Procedure(s): MASTECTOMY PARTIAL (WRVU 10.13) MODIFIER WITH NEEDLE LOC., LESION #1 Anesthesia: General Findings: Left needle localized partial mastectomy. Specimen mammo with adequate margins. Complications: none Estimated Blood Loss: 7cc Specimens removed during surgery: Order Name Source Comment Collection Info Order Time SPECIMEN TO PATHOLOGY LEFT BREAST CANCER left breast partial mastectomy excision Yes 06/24/2018 10:44 AM Number of tissue samples (in container) 1 Time specimen removed from patient: 10:38 AM Biospecimen to store? No SPECIMEN TO PATHOLOGY LEFT BREAST CANCER additional deep margin biopsy 06/24/2018 10:50 AM Number of tissue samples (in container) 1 Time specimen removed from patient: 10:47 AM Fluids: Intraprocedure Crystalloid Total None Fluids: ANES IntraOp Crystalloid (Filter: (AN Fluids) Medications Shown) Medication Calculated Total No medications were administered. Blood: none Urine Output: (no urine output recorded) Drains: none Disposition: awakened from anesthesia, extubated and taken to the recovery room in a stable condition, having suffered no apparent untoward event. Condition: doing well without problems (Please see the Surgical Encounter Summary for any Implant and Specimen details pertinent to this patient.) Infection Bundle used? No Attestation: Case Date: 06/24/2018 I was present and I participated during the entire procedure (does not need to include opening and closing). FRANCES SALDAÑA MD documented in this encounter Plan of Treatment Upcoming Encounters Date Type Department Care Team (Late st Contact Info) Description 05/30/2024 10:00 AM EST Appointment Mammography/[place] [address] Alicia Quinteros MD [facility] [place] [address] 08/11/2024 4:15 PM EST Office Visit Dermatology at [place] [address] [place] [phone] Jhon Giron MD [address], [place] [address] 11/21/2024 2:00 PM EDT Office Visit Radiation Oncology at [address] [address] Alicia Quinteros MD [facility] [place] [address] 10/06/2029 Hospital Encounter [place] [address] Al Mendez MD [facility] [place] [address] Scheduled Procedures Name Priority Associated Diagnoses Date/Ti me @TOTAL KNEE REVISION ARTHROP LASTY, COMPLETE (WRVU 27.11) Instability Right TKA MODIFIER,GMK REVISION KNEE,MEDACTA Instability Right TKA documented as of this encounter Procedures Procedure Name Priority Date/Time Associated Diagnosis Comments SPECIMEN TO PATHOLOGY Routine 06/24/2018 10:50 AM EST SPECIMEN TO PATHOLOGY Routine 06/24/2018 10:45 AM EST SURGICAL PATHOLOGY REPORT Routine 06/24/2018 10:38 AM EST MODIFIER WITH NEEDLE LOC., LESION #1 06/24/2018 9:40 AM EST LEFT BREAST CANCER MASTECTOMY PARTIAL (WRVU 10.13) 06/24/2018 9:40 AM EST LEFT BREAST CANCER documented in this encounter Results * Specimen to Pathology (06/24/2018 10:50 AM EST) AP Specimen 06/24/2018 10:5 0 AM EST 06/24/2018 11:12 AM EST Narrative [facility] - 06/24/2018 11:12 AM EST Specimen requisition ordered. ??Separate Pathology report to follow Resulting Agency Comment Spec In Lab Frances Briscoe MD PATHOLOGY/CYTOLO GY ORDERABLES Performing Organization Address [facility] Co de Phone Number [facility] [place] [address] * Specimen to Pathology (06/24/2018 10:45 AM EST) AP Specimen 06/24/2018 10:4 5 AM EST 06/24/2018 11:34 AM EST Narrative [facility] - 06/24/2018 11:34 AM EST Specimen requisition ordered. ??Separate Pathology report to follow Resulting Agency Comment Spec In Lab Frances Briscoe MD PATHOLOGY/CYTOLO GY ORDERABLES Performing Organization Address [facility] de Phone Number [facility] [place] [address] * Surgical Pathology Report (06/24/2018 10:38 AM EST) Final Diagnosis [id number] ? Location: [facility]; [facility]; The signing pathologist has (i) examined the relevant preparation(s) for the specimen(s) and (ii) rendered or confirmed the diagnosis(es). . ?Surgical Pathology DIAGNOSIS A - Left breast, additional deep margin, re-excision - - Benign fatty breast tissue. B - Left Breast, partial Mastectomy - - Ductal carcinoma in-situ (DCIS), intermediate nuclear grade. - The closest margin in Specimen B is 2-mm to deep RM. - See Synoptic report -------- Specimen Parts: ?? A - Left breast, additional deep margin B - Left breast, partial mastectomy Specimen ? Procedure: ??Excision (less than total mastectomy) ? Specimen Laterality: ?? Left Tumor ? Histologic Type: ?? Ductal carcinoma in situ ? Size (Extent) of DCIS: ?? 32 Millimeters (mm) ? Architectural Patterns: ?? Cribriform, Micropapillary, clinging ? Nuclear Grade: ?? Grade II (intermediate) ? Accessory Findings ?Necrosis: ??Present, central (expansive comedo necrosis) ?Microcalcificat ions: ?? Present in DCIS Margins ? Margins: ??Uninvolved by DCIS ?Distance from Closest Margin in Millimeters (mm): ?Distance is > 2 in ? Millimeters (mm) ?Closest Margin: ?? Cranial ?Distance of DCIS from Anterior Margin: ?5.5 Millimeters (mm) ?Distance of DCIS from Cranial Margin: ?5 Millimeters (mm) ?Distance from Other Specified Margin: ?with additional margin specimens, ? from all other RM >10 Millimeters (mm) Lymph Nodes ? Regional Lymph Nodes: ?? No lymph nodes submitted or found Pathologic Stage Classification (pTNM, AJCC 8th Edition) ? Primary Tumor (pT): ?? pTis (DCIS) ? Regional Lymph Nodes (pN) ?Category (pN): ?? pNX Additional Findings ? Additional Pathologic Findings: ?? - Atypical ductal hyperplasia ? - Healing biopsy site ? - focal fibrotic ducts with calcifications. Tumor Block(s): ?? B14 Normal Block(s): ?? B11 CAP eCC June 2017 Agile Release Electronically signed by: ??Karsten Leidy WILLOUGHBYLior Verified: ??06/29/2018 ?Pathologist Performed at: ??-[facility] Dept. of Pathology, [place], [place] CLINICAL INFORMATION Specimen Submitted: A - Additional deep margin . CLINICAL INFORMATION B - Left Breast Partial Mastectomy Clinical History and Diagnosis: Left breast cancer SPECIMEN PROCESSING A - Labeled/Fixative: Additional deep margin, fresh. Quantity/Size: Two, each approximately 1.5 x 1.3 x 0.7 cm. Tissue Description: Lobular manuel-yellow adipose tissues one with dark ink markings on one surface. On section surfaces reveal lobulated yellow adipose tissue without lesions grossly. Sections/Processi ng: Entirely submitted in 3 cassettes as follows: ? A1: ??Entire uninked tissue ? A2-A3: ??Inked tissue section and totally submitted perpendicular to the inked margin B - Labeled/Fixative: Left breast partial mastectomy, fresh. Quantity/Size/Wallace ght: ??Single, ??8.5 x 8.5 x 1.4 cm, 42 g. SPECIMEN DESCRIPTION Resection Specimen: Fragmented, partial mastectomy. Note: The tissues are friable and fall apart easily when handled. Specimen radiograph: Reviewed in e-. Radiology notes the presence of localization wire and calcifications of interest within the specimen. There is no biopsy marker clip. Specimen Description: According to the established protocol the ink designations are red (medial), yellow (lateral), orange (cranial), green (caudal), black (deep) and blue (superficial). Tissue Sections: The specimen is serially sectioned perpendicular to the long axis from cranial-orange to caudal-green into XIII slices, each averaging 0.8 cm in thickness. Parenchyma: Serial sections reveal lobular adipose tissue with focally dense white fibrous breast tissue. A discrete mass is not identified. The area of interest is located adjacent to the wire tip (IV-). There is a focus of dense fibrous tissue near the wire tip, approximately 1.2 x 0.4 cm. The fibrous tissue is located 0.3 cm from the lateral/yellow margin, 2.9 cm to medial/red margin 1.2 cm to superficial/blue margin and 0.3 cm to deep/black margin. Sections/Processi ng: Bank Courier sections in 30 cassettes as follows: ? B1-B2: ??Bank Courier I, cranial/orange (medial/red) ? B3: ??Bank Courier, full thickness II ? B4-B5: ??Bank Courier III ? B6-B9: ??Bank Courier IV ? B10-B14: ??Bank Courier V ? B15-B18: ?? including fibrous tissue and edge of lateral/yellow margin in B17/B18 ? B19-B20: ??Slice VII ? B21-B22: ??Bank Courier VIII ? B23-B25: ??Bank Courier IX ? B26-B27: ??Bank Courier X ? B28: ??Bank Courier XI ? B29: ??Bank Courier XII ? B30: ??Slice XIII Ischemic Time: 1.4 hours ??pps 06/29/2018 1:27 PM EST [facility] BREAST STRUCTURE / Unknown 06/24/2018 10:38 AM EST 06/24/2018 10:38 AM EST BREAST STRUCTURE / Unknown 06/24/2018 10:38 AM EST 06/24/2018 10:38 AM EST Frances Briscoe MD PATHOLOGY/CYTOLO GY ORDERABLES Performing Organization Address [facility]/State/[facility] Co de Phone Number [facility] [place] [address] documented in this encounter Visit Diagnoses Not on filedocumented in this encounter Administered Medications Inactive Administered Medications - up to 3 most recent administrations Medication Order MAR Action Action Date Dose Rate Site acetaminophen (TYLENOL) tablet 1,000 mg 1,000 mg, Oral, ONCE, 1 dose, On Jessica 06/24/18 at 0800, Administer with SIP of H2O only., Day of Surgery (Day of Procedure), Routine Given 06/24/2018 8:00 AM EST 1,000 mg BUpivacaine (PF) (MARCAINE) 0.5 % (5 mg/mL) injection ONCE PRN, Starting on Jessica 06/24/18 at 1017, Until Jessica 06/24/18 at 1601, Intra-Operative (Intra-Procedure), Routine Given 06/24/2018 10:17 AM EST 5 mLs 19- Surgical Site lidocaine (XYLOCAINE) 10 mg/mL (1 %) injection ONCE PRN, Starting on Jessica 06/24/18 at 1017, Until Jessica 06/24/18 at 1601, Intra-Operative (Intra-Procedure), Routine Given 06/24/2018 10:17 AM EST 5 mLs 19- Surgical Site documented in this encounter Active and Recently Administered Medications Times are shown in EST. Scheduled Medication Order 06/22/2018 06/23/2018 06/24/2018 acetaminophen (TYLENOL) tablet 1,000 mg (COMPLETED) 1,000 mg, Oral, ONCE, 1 dose, On Jessica 06/24/18 at 0800, Administer with SIP of H2O only., Day of Surgery (Day of Procedure), Routine 0800 (Given - Provid er: Andressa Osorio RN) clindamycin (CLEOCIN) 600mg in dextrose 5% 50mL (COMPLETED) 1,200 mg, Intravenous, EVERY 6 HOURS, 1 dose, First dose (after last reorder) on Jessica 06/24/18 at 0915, Administer over 20 Minutes, Do not exceed 30 mg/minute., , Please give 600 mg followed by another 600 mg to equal 1200 mg, Intra-Operative (Intra-Procedure), Indication for (Active or Suspected): Prophylaxis 1004 (Given - Provid er: Shanna Nguyen MD) Continuous Medication Order 06/22/2018 06/23/2018 06/24/2018 lactated Ringers infusion 1,000 mL (CANCELED) 1,000 mL, at 100 mL/hr, Intravenous, CONTINUOUS, Starting on Jessica 06/24/18 at 0800, Until Jessica 06/24/18 at 1336, Day of Surgery (Day of Procedure) 0943 (New Bag - Prov ider: Shanna Nguyen MD) PRN Medication Order 06/22/2018 06/23/2018 06/24/2018 BUpivacaine (PF) (MARCAINE) 0.5 % (5 mg/mL) injection (CANCELED) ONCE PRN, Starting on Jessica 06/24/18 at 1017, Until Jessica 06/24/18 at 1601, Intra-Operative (Intra-Procedure), Routine 1017 (Given - Provid er: Cipriano Aguila MD - Comment: Mixed 1:1 with 1% lidocaine) lidocaine (XYLOCAINE) 10 mg/mL (1 %) injection (CANCELED) ONCE PRN, Starting on Jessica 06/24/18 at 1017, Until Jessica 06/24/18 at 1601, Intra-Operative (Intra-Procedure), Routine 1017 (Given - Provid er: Cipriano Aguila MD - Comment: mixed 1:1 with 0.5% bupivicaine) documented in this encounter Care Teams Pumper Helper Relationship Specialty Start Date End Date vAis Honeycutt, CARD PROCESSING CLERK [address] [place] [address] PCP - General Family Medicine 05/27/18 12/17/20 documented as of this encounter
--- OUTSIDE RECORDS SUMMARY | 2024-04-14 10:39 | XMS_ITS | Encounter Summary ---
[place] [address] Care Team Providers Care Fish And Wildlife Technician Name Role Phone HaseebAvis collins LEVON Primary Care Provider [phone] Encounter Details Date Type Department Care Team (Late st Contact Info) Description 06/25/2018 Telephone [place] [phone] Rachel Osuna RN Social History Tobacco Use Types Packs/Day Years Used Date Smoking Tobacco: Never Smokeless Tobacco: Never Sex and Gender Information Value Date Recorded Sex Assigned at Female 07/24/2020 2:32 PM EST Gender Identity Not on file Sexual Orientation Straight 07/24/2020 2: 32 PM EST documented as of this encounter Miscellaneous Notes * Telephone Encounter - Rachel Osuna RN - 06/25/2018 2:42 PM EST Ms. Santana is s/p partial mastectomy with Dr. Zee yesterday 06/24/18. She reports feeling a burning sensation on her skin and noticed it was red from her neck to her breast. She reports a h/o many allergies and carries an epi-pen. She is not having any trouble breathing or swelling in her tongue or anywhere else. She is not taking any new medications (pain is managed with Tylenol and ibuprofen). Discussed washing her neck and chest to remove any remaining surgical scrub. She has already taken Benadryl - recommended continuing that for now. Discussed hydrocortisone cream as an option but to stay away from her incision. Reviewed emergency allergic situations, which she is aware of d/t her allergy history. She is otherwise doing well. documented in this encounter Plan of Treatment Upcoming Encounters Date Type Department Care Team (Late st Contact Info) Description 05/30/2024 10:00 AM EST Appointment Mammography/[place] [address] Alicia Quinteros MD [facility] [address] 08/11/2024 4:15 PM EST Office Visit Dermatology at [address] [place] [phone] Jhon Giron MD [address], [place] [address] 11/21/2024 2:00 PM EDT Office Visit Radiation Oncology at [address] [address] Alicia Quinteros MD [facility] [place] [address] 10/06/2029 Hospital Encounter [place] [address] Al Mendez MD [facility] [place] [address] Scheduled Procedures Name Priority Associated Diagnoses Date/Ti me @TOTAL KNEE REVISION ARTHROP LASTY, COMPLETE (WRVU 27.11) Instability Right TKA MODIFIER,GMK REVISION KNEE,MEDACTA Instability Right TKA documented as of this encounter Visit Diagnoses Not on filedocumented in this encounter Care Teams Fish And Wildlife Technician Relationship Specialty Start Date End Date Avis Honeycutt APRN [address] [address] PCP - General Family Medicine 05/27/18 12/17/20 documented as of this encounter
--- OUTSIDE RECORDS SUMMARY | 2024-04-14 10:39 | XMS_ITS | Encounter Summary ---
Author Organization [facility] Address [facility] [place] [address] Care Team Providers Care Branch Manager Name Role Phone Avis Honeycutt APRN Primary Care Provider [phone] Encounter Details Date Type Department Care Team (Late st Contact Info) Description 06/09/2018 Orders [place] [phone] Frances Zee MD [facility] [place] [address] Malignant neoplasm of left female breast, unspecified estrogen receptor status, unspecified site of breast Social History Tobacco Use Types [...] 05/30/2024 10:00 AM EST Appointment Mammography/[place] [address] Alicia Quinteros MD [facility] [place] [address] 08/11/2024 4:15 PM EST Office Visit Dermatology at [place] [address] [place] [address] Jhon Giron MD [address], [place] [address] 11/21/2024 2:00 PM EDT Office Visit Radiation Oncology at [address] [address] Alicia Quinteros MD [facility] [place] [address] 10/06/2029 Hospital Encounter [place] [address] Al Mendez MD [facility] [place] [address] Scheduled Procedures Name Priority Associated Diagnoses Date/Ti me @TOTAL KNEE REVISION ARTHROP LASTY, COMPLETE (WRVU 27.11) Instability Right TKA MODIFIER,GMK REVISION KNEE,MEDACTA Instability Right TKA documented as of this encounter Results * Mammo Specimen Left (06/24/2018 10:57 AM EST) Anatomical Region Laterality Modality Breast Left Mammography Impressions 06/24/2018 11:01 AM EST Positive specimen x-ray as described. Results phoned to the operating surgeon intraoperatively. Thank you for letting us participate in the care of this patient. For questions regarding this report, please contact the number below. ? Narrative 06/24/2018 11:01 AM EST EXAMINATION: Specimen x-ray INDICATION: Intraoperative specimen image for adequacy of lesion and/or clip removal TECHNIQUE: A single projection specimen x-ray from the left breast is obtained superimposed on alphanumeric grid COMPARISON: This is correlated with preoperative imaging FINDINGS: The intact wire and calcifications of interest in a ductal distribution are identified. There are no close margins. The clip is not seen but again was 2.5 cm lateral to the calcifications of interest. Frances Briscoe MD IMG MAMMO ORDERA BLES * Mammo Needle Localization Left (06/24/2018 8:45 AM EST) Anatomical Region Laterality Modality Breast Left Mammography Impressions 06/24/2018 9:02 AM EST Status post successful pre-operative wire localization of left breast lesion #1. Preliminary report signed by: Sherrie Bingham at 06/24/2018 8:56 AM I have personally reviewed the image(s) and the residents interpretation and agree with the findings, Leigh Cordon at 06/24/2018 9:02 AM Thank you for letting us participate in the care of this patient. For questions regarding this report, please contact the number below. ? Narrative 06/24/2018 9:02 AM EST Examination: NEEDLE LOCALIZATION OF ??LEFT Indication: PLEASE NEEDLE LOCALIZE THE LEFT BREAST CANCER. Lesion #1, biopsy proven DCIS, 2:00 radian, 5.7 cm from the nipple. Residual microcalcifications are approximately 2 cm medial to the cylinder clip. Technique:Informed consent was confirmed and a timeout procedure was performed per protocol. Using sterile technique and local anesthetic ??(less than 5 cc's of 1% lidocaine) a needle localization of the residual calcifications in the left breast was performed from the cranial approach with mammographic guidance. The wire was deployed. After confirming satisfactory positioning in orthogonal views the wire was deployed and a final image was obtained. There were no complications. Images were annotated on PACS for the operating surgeon. Procedural attestation: Resident: Sherrie Backer, DO I was present with the resident for the lima component(s) of the procedure and otherwise remained immediately available for the duration of the procedure. I attest to having personally viewed the images/test and approve the above interpretation. Frances Briscoe MD IMG MAMMO ORDERA BLES documented in this encounter Visit Diagnoses Diagnosis Malignant neoplasm of left female breast, unspecified estrogen receptor status, unspecified site of breast Malignant neoplasm of left female breast, unspecified estrogen receptor status, unspecified site of breast Malignant neoplasm of left female breast, unspecified estrogen receptor status, unspecified site of breast documented in this encounter Care Teams Branch Manager Relationship Specialty Start Date End Date Avis Honeycutt, GANG DRILL PRESS OPERATOR [address] [facility] [place] [address] PCP - General Family Medicine 05/27/18 12/17/20 documented as of this encounter
--- OUTSIDE RECORDS SUMMARY | 2024-04-14 10:39 | XMS_ITS | Encounter Summary ---
[place] [address] Care Team Providers Care Hazardous Waste Remover Name Role Phone HaseebAvis collins LEVON Primary Care Provider [phone] Encounter Details Date Type Department Care Team (Late st Contact Info) Description 10/12/2018 [place] [phone] Yasmeen Vargas LPN Social History Tobacco Use Types Packs/Day Years [...] encounter Miscellaneous Notes * Telephone Encounter - Yasmeen Vargas LPN - 10/12/2018 8:16 AM EDT Images from the original note were not included. Able to reach patient on mobile phone, and read her Dr. Paz's message below. At first, she wasrather displeased as she stated she called a month ago to see if there was anything she should do and was told no. 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 She was in agreement, once directions given to lab and clinic, to come in for TSH level before visit. I thanked her, and stated that would help Dr. Paz also. Dago Paz MD P [facility] Endocrinology Nurse ?? Endo RNs, Patient is seeing me tomorrow for thyroid nodule evaluation but there is no TSH on file. Please ask her to get TSH drawn prior to Appt, I placed order Thank you! documented in this encounter Plan of Treatment Upcoming Encounters Date Type Department Care Team (Late st Contact Info) Description 05/30/2024 10:00 AM EST Appointment Mammography[place] [phone] Alicia Quinteros MD [facility] [place] [address] 08/11/2024 4:15 PM EST Office Visit Dermatology at [address] [place] [address] Jhon Giron MD [address] [place] [address], [place] [address] 11/21/2024 2:00 PM EDT Office Visit Radiation Oncology at [address] [address] Alicia Quinteros MD [facility] [place] [address] 10/06/2029 Hospital Encounter [place] [phone] Al Mendez MD [facility] [place] [address] Scheduled Procedures Name Priority Associated Diagnoses Date/Ti me @TOTAL KNEE REVISION ARTHROP LASTY, COMPLETE (WRVU 27.11) Instability Right TKA MODIFIER,GMK REVISION KNEE,MEDACTA Instability Right TKA documented as of this encounter Visit Diagnoses Not on filedocumented in this encounter Care Teams Hazardous Waste Remover Relationship Specialty Start Date End Date Avis Honeycutt, MAIL HANDLER ASSISTANT [address] [place] [address] PCP - General Family Medicine 05/27/18 12/17/20 documented as of this encounter
--- OUTSIDE RECORDS SUMMARY | 2024-04-14 10:39 | XMS_ITS | Encounter Summary ---
[place] [address] Care Team Providers Care Justice [employer] The Peace Name Role Phone Avis Honeycutt APRN Primary Care Provider [phone] Reason for Visit * Auth/Cert Specialty Diagnoses / Procedures Referred By Agus govea Referred To Contact Diagnoses LEFT BREAST CANCER Procedures PRO MASTECTOMY, PARTIAL MASTECTOMY PARTIAL (WRVU 10.13) MODIFIER WITH NEEDLE LOC., LESION #1 Referral ID Status Reason Start Date Expiration Date Visits Re quested Visits Authorized [id number] 1 1 Encounter Details Date Type Department Care Team (Late st Contact Info) Description 06/24/2018 9:43 AM EST Anesthesia Event [place] [address] Yasmeen Ratliff MD [facility] [place] [address] Shanna Nguyen MD [facility] [place] [address] Anesthesia Record Procedure Summary Procedure Name Responsible Anesthesiologist Anesthesia Start Time Anesthesia Stop Time MASTECTOMY PARTIAL (WRVU 10.13) (Left: Breast) Yasmeen Ratliff MD 06/24/18 0943 06/24/18 1142 Events Date Time Event Comment 06/24/2018 0922 0943 AN Verify 0943 Start 0943 An Start Data 0956 An Induction 0958 An Intubation 1004 Anesthesia Ready 1131 Extubation/LMA Out 1134 an stop data 1141 Recovery or ICU Handoff Blossom ent care was transferred to the destination unit staff after review of the patient's medical history, current anesthetic/surgical status and plan, according to the Provider Handoff Checklist. 1142 Stop Meds Name Total Midazolam 2 mg fentaNYL 100 mcg IV Lidocaine 100 mg Propofol 200 mg PHENYLephrine 160 mcg Ondansetron 4 mg Dexamethasone 4 mg Dexmedetomidine 20 mcg clindamycin (CLEOCIN) 600mg in dextrose 5% 50mL 1,200 mg PHENYLephrine INF 1,090 mcg lactated Ringers infusion 1,000 mL 0 mL * Agents Name O2 Air N2O Sevoflurane (et) * Blood No blood administrations on file. Lines, Drains, and Airways Type Details Placement Removal (RETIRED) Peripheral IV Line - Single Lumen 05/27/18; 1500; cephalic vein (lateral side of arm), right; lvhc-rvm-[id number] catheter system; 22 gauge, 1 in length; MFB; 06/24/18; 1400 05/27/18 1500 by Castellanos Javy F 06/24/18 1400 by Missael Correa, LUIS MANUEL (RETIRED) Peripheral IV Line - Single Lumen 06/24/18; 0938; median cubital vein (antecubital fossa), right; jnil-dbw-ccfcfb catheter system; 20 gauge; Anesthesia; intradermal injection; 06/24/18; 1400 06/24/18 0938 by Andressa Osorio RN 06/24/18 1400 by Missael Correa, LUIS MANUEL Supraglottic Mask Ventilation: Adjunct (2); LMA Type: iGel; LMA Size: 4; Inserted by: darren; Removal Date: 06/24/18; Removal Time: 1131 06/24/18 1003 by Shanna Nguyen MD 06/24/18 1131 by Shanna Nguyen MD Incision 06/24/18; 1018; remi st; 02/03/22 (LDA cleanup utility RA#[id number]); 1715 (LDA cleanup utility RA#[id number]) 06/24/18 1018 by Arlene Ross RN 02/03/22 1715 by Abram Ahuja documented in this encounter Social History Tobacco Use Types Packs/Day Years Used Date Smoking Tobacco: Never Smokeless Tobacco: Never Sex and Gender Information Value Date Recorded Sex Assigned at Female 07/24/2020 2:32 PM EST Gender Identity Not on file Sexual Orientation Straight 07/24/2020 2: 32 PM EST documented as of this encounter OR Notes * Anesthesia Postprocedure Evaluation - Yasmeen Ratliff MD - 06/24/2018 12:45 PM EST [facility] [place] Department of Anesthesiology Post-procedure Note Patient: Quin Santana Procedure Summary Date: 06/24/18 Room / Location: [address] MAIN OR Anesthesia Start: 942 Anesthesia Stop: 1141 Procedures: MASTECTOMY PARTIAL (WRVU 10.13) (Left Breast) MODIFIER WITH NEEDLE LOC., LESION #1 (Left Breast) Diagnosis: (LEFT BREAST CANCER) Surgeon: Frances Zee MD Responsible Provider: Yasmeen Ratliff MD Anesthesia Type: general ASA Status: 3 All Anesthesia Providers: Anesthesiologist: Yasmeen Ratliff MD; Abisai Sage MD Photo Technician: Shanna Nguyen MD Most Recent Vitals: 06/24/18 1246 BP: Pulse: Resp: 16 Temp: SpO2: Pain Patient Location: PACU/[facility] Level of Consciousness: Awake and Alert Pain Management: Satisfactory Analgesia PONV: None Cardiovascular Status: At Baseline and Hemodynamically Stable Respiratory Status: Stable Respiratory Status and Supplemental O2 (NC or FM) Postoperative Fluid Status: Intravascular EUvolemia Possible Anesthetic Complications: NONE apparent at time of evaluation Final Primary Anesthesia Type: General (The anesthetic type performed was the same as planned.) Comments: * Anesthesia Preprocedure Evaluation - Abisai Sage MD - 06/23/2018 4:04 PM EST Pre-Anesthesia Evaluation for: Quin Santana a 52 y.o. female. Procedure(s): MASTECTOMY PARTIAL (WRVU 10.13) MODIFIER WITH NEEDLE LOC., LESION #1 Patient Active Problem List Diagnosis ??? Ductal carcinoma in situ (DCIS) of left breast Past Medical History: Diagnosis Date ??? Anxiety ??? Asthma ??? Environmental allergies ??? GERD (gastroesophageal reflux disease) ??? HTN (hypertension) ??? Hypercholesteremia Past Surgical History: Procedure Laterality Date ??? BREAST REDUCTION SURGERY Bilateral 1995 ??? KNEE SURGERY Bilateral ??? MAMMO STEREOTACTIC BIOPSY LEFT N/A 05/10/2018 Mammo Stereotactic Biopsy Left 05/10/[address] [facility] RAD MAMMOGRAPHY Social History Tobacco Use ??? Smoking status: Never Smoker ??? Smokeless tobacco: Never Used Substance Use Topics ??? Alcohol use: Not on file Social History Substance and Sexual Activity Drug Use Not on file Allergies Allergen Reactions ??? Penicillins Medications: MAR and/or home medications have been reviewed. Physical Exam: There were no vitals filed for this visit. There is no height or weight on file to calculate BMI. Airway Assessment: Mallampati: III TM distance: >3 FB Neck ROM: full Cardiovascular Assessment: Rhythm: regular Pulmonary Assessment: breath sounds clear to auscultation Dental Assessment: - normal exam Misc Assessment: Patient is wearing No contact(s). IV access: Peripheral line Other exam findings: Bilateral TMJ, poor mouth opening Anesthesia Plan: ASA 3 general, with a(n) intravenous induction This is a preliminary note. 52 y.o. female with left breast cancer scheduled for partial mastectomy w/ Dr. Zee. Medical History: HTN, HLD, asthma, GERD, anxiety Anesthetic History: previously tolerated GA, no records available Allergies reviewed Labs reviewed Exercise tolerance: Greater than 4 METS EKG: none on file NPO Status: --- Anesthetic Plan: GA w/ ETT Standard ASA monitoring PIV access Shanna Nguyen MD 06/23/2018 I have seen and examined the patient. I have reviewed the medical record and pertinent laboratory information. I have noted the major medical issues to include abcd. I have reviewed risks from minor to major as outlined in the anesthesia consent form. I have highlighted risks related to abcd. The patient acknowledged These risks and would like to proceed with the anesthesia plan. Dr. Sage Region - Other Informed Consent: Use of blood products discussed with patient who. Plan discussed with resident. PAT Staff Note documented in this encounter Plan of Treatment Upcoming Encounters Date Type Department Care Team (Late st Contact Info) Description 05/30/2024 10:00 AM EST Appointment Mammography/[place] [address] Alicia Quinteros MD [facility] [place] [address] 08/11/2024 4:15 PM EST Office Visit Dermatology at [place] [address] [place] [address] Jhon Giron MD [address], [place] [address] 11/21/2024 2:00 PM EDT Office Visit Radiation Oncology at [address] [address] Alicia Quinteros MD [facility] [place] [address] 10/06/2029 Hospital Encounter [place] [phone] Al Mendez MD [facility] [place] [address] Scheduled Procedures Name Priority Associated Diagnoses Date/Ti me @TOTAL KNEE REVISION ARTHROP LASTY, COMPLETE (WRVU 27.11) Instability Right TKA MODIFIER,GMK REVISION KNEE,MEDACTA Instability Right TKA documented as of this encounter Visit Diagnoses Not on filedocumented in this encounter Administered Medications Inactive Administered Medications - up to 3 most recent administrations Medication Order MAR Action Action Date Dose Rate Site clindamycin (CLEOCIN) 600mg in dextrose 5% 50mL 1,200 mg, Intravenous, EVERY 6 HOURS, 1 dose, First dose (after last reorder) on Jessica 06/24/18 at 0915, Administer over 20 Minutes, Do not exceed 30 mg/minute., , Please give 600 mg followed by another 600 mg to equal 1200 mg, Intra-Operative (Intra-Procedure), Indication for (Active or Suspected): Prophylaxis Given 06/24/2018 10:04 AM EST 1,200 mg dexamethasone (DECADRON) injection PRN, Starting on Jessica 06/24/18 at 1022, Until Jessica 06/24/18 at 1209, Anesthesia Intra-op, Routine Given 06/24/2018 10:22 AM EST 4 mg dexmedetomidine (PRECEDEX) injection PRN, Starting on Jessica 06/24/18 at 0956, Until Jessica 06/24/18 at 1209, Anesthesia Intra-op, Routine Given 06/24/2018 11:38 AM EST 4 mcg Given 06/24/2018 11:33 AM EST 8 mcg Given 06/24/2018 9:56 AM EST 8 mcg fentaNYL 50 mcg/mL multi-dose injection PRN, Starting on Jessica 06/24/18 at 0943, Until Jessica 06/24/18 at 1209, Anesthesia Intra-op, Routine Given 06/24/2018 10:12 AM EST 25 mcg Given 06/24/2018 10:02 AM EST 25 mcg Given 06/24/2018 9:43 AM EST 50 mcg lactated Ringers infusion 1,000 mL 1,000 mL, at 100 mL/hr, Intravenous, CONTINUOUS, Starting on Jessica 06/24/18 at 0800, Until Jessica 06/24/18 at 1336, Day of Surgery (Day of Procedure) New Bag 06/24/2018 9:43 AM EST lidocaine (PF) (XYLOCAINE) 100 mg/5 mL (2 %) injection PRN, Starting on Jessica 06/24/18 at 0956, Until Jessica 06/24/18 at 1209, Anesthesia Intra-op, Routine Given 06/24/2018 9:56 AM EST 100 mg midazolam (PF) (VERSED) multi-dose injection PRN, Starting on Jessica 06/24/18 at 0943, Until Jessica 06/24/18 at 1209, Anesthesia Intra-op, Routine Given 06/24/2018 9:43 AM EST 2 mg ondansetron (ZOFRAN) injection PRN, Starting on Jessica 06/24/18 at 1102, Until Jessica 06/24/18 at 1209, Anesthesia Intra-op, Routine Given 06/24/2018 11:02 AM EST 4 mg PHENYLephrine (STEPHEN-SYNEPHRINE) 20 mg in sodium chloride 250 mL (standard ADULT & Pedi greater than 20kg) infusion CONTINUOUS PRN, Starting on Jessica 06/24/18 at 1040, Until Jessica 06/24/18 at 1209, Anesthesia Intra-op, Routine Rate/Dose Change 06/24/2018 11:19 AM EST 10 mcg/min 7.5 mL/hr Rate/Dose Change 06/24/2018 11:07 AM EST 20 mcg/min 15 mL/ hr Rate/Dose Change 06/24/2018 10:52 AM EST 40 mcg/min 30 mL/ hr PHENYLephrine in NS (PF) (STEPHEN-SYNEPHRINE) 0.8 mg/10 mL (80 mcg/mL) multi-dose injection Syrg PRN, Starting on Jessica 06/24/18 at 1038, Until Jessica 06/24/18 at 1209, Anesthesia Intra-op, Routine Given 06/24/2018 10:52 AM EST 80 mcg Given 06/24/2018 10:38 AM EST 80 mcg propofol (DIPRIVAN) 10 mg/mL bolus injection (Anesthesia) PRN, Starting on Jessica 06/24/18 at 0956, Until Jessica 06/24/18 at 1209, Anesthesia Intra-op Given 06/24/2018 9:56 AM EST 200 mg documented in this encounter Care Teams Justice [employer] Peace Relationship Specialty Start Date End Date Avis Honeycutt, LEVON [address] [place] [address] PCP - General Family Medicine 05/27/18 12/17/20 documented as of this encounter
--- OUTSIDE RECORDS SUMMARY | 2024-04-14 10:39 | XMS_ITS | Encounter Summary ---
Author Organization [facility] [place] [address] Care Team Providers Care Child Care Leader Name Role Phone Tangela Avis LEVON Primary Care Provider [phone] Reason for Referral * Consultation (Routine) - Closed Specialty Diagnoses / Procedures Referred By Agus govea Referred To Contact Hematology and Oncology Diagnoses Ductal carcinoma in situ (DCIS) of left breast Family history of prostate cancer Bill Jeong MD [facility] [address] [place]ATOLOGY/[place] [address] [facility] Hem Onc Office [address] [place] [phone] Referral ID Status Reason Start Date Expiration Date V isits Requested Visits Authorized [id number] Closed Consult, Test & Treat 07/22/2018 07/22/2019 1 1 Reason for Visit * Reason Comments Follow-up Encounter Details Date Type Department Care Team (Late st Contact Info) Description 07/22/2018 1:00 PM EST Office Visit Hematology [place] [address] Bill Jeong MD [facility] DR HEMATOLOGY/[place] [address] Audrey Shannon RN Ductal carcinoma in situ (DCIS) of left breast; Family history of prostate cancer Social History Tobacco Use Types Packs/Day Years [...] Sign Reading Time Taken Comments Blood Pressure 114/75 07/22/2018 12:56 PM EST Pulse 106 07/22/2018 12:56 PM EST Temperature 36.5 ??C (97.7 ??F) 07/22/2018 1 2:56 PM EST Respiratory Rate 18 07/22/2018 12:5 6 PM EST Oxygen Saturation 96% 07/22/2018 12: 56 PM EST Inhaled Oxygen Concentration - - Weight 123.7 kg (272 lb 9.6 oz) 019 12:56 PM EST Height 158 cm (5' 2.21) 07/22/2018 12: 56 PM EST Body Mass Index 49.53 07/22/2018 12:56 PM EST documented in this encounter Progress Notes * Bill Jeong MD - 07/22/2018 1:00 PM EST Initial Medical Oncology Visit New Breast Cancer Ms. Santana is a 52 year old female, here today in consultation at the request of Dr. Zee to review her status, and to discuss her options for further therapy. HPI: Screening mammogram, reviewed here, showed pleomorphic micorcalcs in left breast, upper outer quadrant, prompting further eval and biopsy. 05/10/18 Needle biopsies??Left breast: Diagnosis: ??Ductal carcinoma in-situ, intermediate nuclear grade, ??micropapillary, clinging, and solid patterns with necrosis Microcalcifications: ??Associated with ductal carcinoma in-situ ER immunoreactivity: Positive (>90% cancer cells with immunostaining) Stain intensity: Strong ID immunoreactivity: Positive (90% cancer cells with immunostaining) Stain intensity: Strong 06/24/18 Surgery A - Left breast, additional deep margin B - Left breast, partial mastectomy Specimen ?Procedure: ??Excision (less than total mastectomy) ?Specimen Laterality: Left Tumor ?Histologic Type: ??Ductal carcinoma in situ ?Size (Extent) of DCIS: ??32 Millimeters ?Architectural Patterns: ??Cribriform, Micropapillary, clinging ?Nuclear Grade: ??Grade II (intermediate) ?Accessory Findings ? Necrosis: ??Present, central (expansive comedo necrosis) ? Microcalcifications: ??Present in DCIS Margins ?Margins: ??Uninvolved by DCIS ? Distance from Closest Margin in mm: Distance is > 2mm ? Closest Margin: ??Cranial ? Distance of DCIS from Anterior Margin: 5.5 Millimeters (mm) ? Distance of DCIS from Cranial Margin: 5 Millimeters (mm) ? Distance from Other Specified Margin: with additional margin specimens, ?from all other RM >10 Millimeters (mm) pTis (DCIS) pNX PMH: Past Medical History: Diagnosis Date ??? Anxiety ??? Asthma ??? Environmental allergies ??? GERD (gastroesophageal reflux disease) ??? HTN (hypertension) ??? 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 Oversees one of the dorms as well. Family History Problem Relation Age of Onset ??? Prostate Cancer Father ??? Breast Cancer Neg Hx ??? Ovarian Cancer Neg Hx There is Ashkenazi Muslim ancestry. Her father had only one brother; no sisters. She has a younger sister. ROS: No new problems with HANSON, diplopia, hot flashes, heartburn, cough, CARDOSO/SOB, pain, palpitations, fevers, bleeding of any kind, nausea/emesis, decreased appetite or energy, change in bowel or bladder function, imbalance, falls. ROS otherwise neg. Exam: Most Recent Vitals: 07/22/18 1256 BP: 114/75 Pulse: (!) 106 Resp: 18 Temp: 36.5 ??C (97.7 ??F) SpO2: 96% PERRL, EOMi, sclera nonicteric Oropharynx benign No PRICILA No spine/rib tenderness Chest: clear to A and P L breast with healing surgical site, no e/o infection CV: RRR, no murmurs Abd: NT, no HSM, +BS Ext: no c/c/e Neuro: grossly nonfocal. Neg Romberg. I reviewed images from the May 27 bilateral breast MRI, showing the left breast lesion and normalR breast. Assessment/Rec: Perimenopausal 52 yo female with recent diagnosis of a left breast DCIS. She is now s/p partial mastectomy and radiation therapy is planned. The tumor cells expressed ER and ID in good abundance. We discussed the diagnosis and the potential role of adjuvant endocrine therapy with tamoxifen, which would start after XRT, to reduce the risk of a recurrence or a metachronous contralateral breast cancer. I reviewed with her the family history, which warrants referral to the Familial Cancer Program given her diagnosis and AJ heritage. Not certain about the [place] score of her father's prostateca, but I also noted that she is close to being of 'limited family structure' in that she has no paternal aunts and her only sister is only 46 yr old. Genetic testing might alter her a priori risk ofa subsequent breast cancer, and thus could impact the decision about tamoxifen. I also reviewed her med list, noting she is on fluoxetine which is a strong inhibitor of Cyp2D6, which raises concerns that it would inhibit the bio- activation of tamoxifen and thereby diminish its therapeutic benefit. She will work with pcp to switch or taper off. I reviewed with her the side effects and risks associated with tamoxifen, going over the data from the P1 placebo-controlled trial. All questions answered. Referral to FCP made. She will contact us if she is interested in further considering tamoxifen. documented in this encounter Plan of Treatment Upcoming Encounters Date Type Department Care Team (Late st Contact Info) Description 05/30/2024 10:00 AM EST Appointment Mammography/[place] [address] Alicia Quinteros MD [facility] [place] [place] [address] 08/11/2024 4:15 PM EST Office Visit Dermatology at [place] [address] [place] [phone] Jhon Giron MD [address], [place] [address] 11/21/2024 2:00 PM EDT Office Visit Radiation Oncology at [address] [phone] Alicia Quinteros MD [facility] [place] [address] 10/06/2029 Hospital Encounter [place] [address] Al Mendez MD [facility] [place] [address] Scheduled Procedures Name Priority Associated Diagnoses Date/Ti [...] left breast Family history of prostate cancer Family history of malignant neoplasm of prostate documented in this encounter Care Teams Child Care Leader Relationship Specialty Start Date End Date Avis Honeycutt, EMERGENCY PLANNING AND RESPONSE MANAGER [address] [place] [address] PCP - General Family Medicine 05/27/18 12/17/20 documented as of this encounter
--- OUTSIDE RECORDS SUMMARY | 2024-04-14 10:39 | XMS_ITS | Encounter Summary ---
Author Organization [facility] [place] [address] Care Team Providers Care Latex Foam Worker Name Role Phone Avis Honeycutt LEVON Primary Care Provider [phone] Encounter Details Date Type Department Care Team (Late st Contact Info) Description 07/07/2018 11:45 AM EST Office Visit Hematology [place] [phone] Frances Zee MD [facility] GENERAL [place] [address] Ductal carcinoma in situ (DCIS) of left breast Social History Tobacco Use [...] Pressure - - Pulse - - Temperature 36.3 ??C (97.3 ??F) 07/07/2018 11:[address] Respiratory Rate - - Oxygen Saturation - - Inhaled Oxygen Concentration - - Weight - - Height - - Body Mass Index - - documented in this encounter Progress Notes * Frances Zee MD - 07/07/2018 11:45 AM EST Comprehensive [facility] Surgical Oncology Postop Visit Reason for Visit: Quin Santana returns for postoperative visit. s/p PM Breast Cancer Summary Left breast DCIS s/p PM Date: 06/17/18 3.2 cm, intermediate grade. Negative margins. Closest 5.5mm deep ER+/FL+ pTNM: ---(m)Tis NX (AJCC) Radiation: pending consultation (Dr. Gonzalez) Chemo: NA Receptor targeted therapy: pending consultation Dr Jeong History of Present Illness: Quin Santana has done well s/p surgery. She reports some discomfort in left breast but improving daily. No fevers or chills. No redness. Current Outpatient Medications on File Prior to Visit Medication Sig Dispense Refill ??? ALPRAZolam (XANAX) 0.5 mg Tablet Take 0.5 mg by mouth daily as needed. 0 ??? atorvastatin (LIPITOR) 40 mg Tablet Take 40 mg by mouth daily. 0 ??? benazepril (LOTENSIN) 10 mg Tablet Take 10 mg by mouth daily. 0 ??? cetirizine (ZYRTEC) 10 mg Tablet Take 10 mg by mouth daily. 0 ??? EPINEPHrine 0.3 mg/0.3 mL Auto-Injector Inject 0.3 mg into the muscle as needed. 0 ??? FLUoxetine 60 mg Tablet Take 60 mg by mouth daily. 0 ??? hydroCHLOROthiazide (HYDRODIURIL) 50 mg Tablet Take 50 mg by mouth daily. 0 ??? omeprazole (PRILOSEC) 20 mg Capsule, Delayed Release(E.C.) Take 20 mg by mouth daily. 0 ??? calcium-vitamin D3 600 mg(1,500mg) -200 unit Tablet Take 1,200 mg by mouth daily. ??? multivitamin (THERAGRAN) Tablet Take 1 tablet by mouth daily. ??? budesonide-formoterol (SYMBICORT) 80-4.5 mcg/actuation HFA Aerosol Inhaler Inhale 2 puffs into the lungs. ??? fish oil-omega-3 fatty acids 500 mg Capsule Take 120 mg by mouth. ??? albuterol 90 mcg/actuation HFA Aerosol Inhaler Inhale 2 puffs into the lungs every 4 hours as needed for Wheezing. Use with spacer No current facility-administered medications on file prior to visit. Allergies as of 07/07/2018 - Review Complete 07/07/2018 Allergen Reaction Noted ??? Penicillins 05/24/2018 PE: Quin has a well-healed incision on the let breast with minimal post-op changes at the site of partial mastectomy. Some fullness, possible small seroma. No erythema. Imp: Quin Santana is a 52 y.o. female with PMH significant for HTN, anxiety who had screening mammogram detected left breast biopsy DCIS, ER+FL+ s/p partial mastectomy. Healing quite well. Plan: - Return in 6 months for CBE - New baseline mammogram in 6 months - Medical oncology consultation and treatment : Dr. Jeong - Radiation oncology consultation and treatment: Dr. Neli Zee MD Surgical Oncology documented in this encounter Plan of Treatment Upcoming Encounters Date Type Department Care Team (Late st Contact Info) Description 05/30/2024 10:00 AM EST Appointment Mammography/[place] [phone] Alicia Quinteros MD [facility] RADIATION [place] [address] 08/11/2024 4:15 PM EST Office Visit Dermatology at [address] [place] [address] Jhon Giron MD [address] [place] [address] RD, [place] [address] 11/21/2024 2:00 PM EDT Office Visit Radiation Oncology at [address] [phone] Alicia Quinteros MD [facility] RADIATION [place] [address] 10/06/2029 Hospital Encounter [place] [phone] Al Mendez MD [facility] ORTHOPAEDIC [place] [address] Scheduled Procedures Name Priority Associated Diagnoses Date/Ti me @TOTAL KNEE REVISION ARTHROP LASTY, COMPLETE (WRVU 27.11) Instability Right TKA MODIFIER,GMK REVISION KNEE,MEDACTA Instability Right TKA documented as of this encounter Visit Diagnoses Diagnosis Ductal carcinoma in situ (DCIS) of left breast documented in this encounter Care Teams Latex Foam Worker Relationship Specialty Start Date End Date Avis Honeycutt, AIRPORT OPERATIONS SPECIALIST [address] [facility] [place] [address] PCP - General Family Medicine 05/27/18 12/17/20 documented as of this encounter
--- OUTSIDE RECORDS SUMMARY | 2024-04-14 10:39 | XMS_ITS | Encounter Summary ---
Author Organization [place] [address] Care Team Providers Care Special Client Bus Driver Name Role Phone WilfredoantonioAvis collins LEVON Primary Care Provider [phone] Reason for Visit * Consultation (Routine) - Closed Specialty Diagnoses / Procedures Referred By Agus govea Referred To Contact Radiation Oncology Diagnoses Malignant neoplasm of upper-outer quadrant of left female breast, unspecified estrogen receptor status Procedures Simulation for Radiation Therapy Planning PRG RADIATION THERAPY PLAN COMPLEX PRG SET RADIATION THERAPY FIELD COMPLEX PRG RADIATION TREATMENT AID(S) INTERM PRG SET RADIATION THERAPY FIELD 3D RECON PRG RESPIRATORY MOTION MANAGEMENT PLANNING PRG BASIC RADIATION DOSIMETRY CALCULATION PRG RADIATION TREATMENT AID(S) COMPLX PRG SET RADIATION THERAPY FIELD SIMPLE CHG RADN RX DELIVERY COMPLX =<5 MEV RADIOLOGY PORT FILM(S) CHG RADN PHYSICS CONSULT CONTINUING PRG RADIATION MANAGEMENT, 5 TREATMENTS [id number] Alicia Quinteros MD [facility] [place] [address] St Rad Onc Office [address] [place] [phone] Referral ID Status Reason Start Date Expiration Date V isits Requested Visits Authorized [id number] Closed Consult, Test & Treat 07/12/2018 07/12/2019 1 1 Encounter Details Date Type Department Care Team (Latest Contact Info) Description 07/27/2018 8:30 AM EST Ancillary Appointment Radiation Oncology at [address] [phone] Alicia Quinteros MD [facility] [place] [address] Malignant neoplasm of upper-outer quadrant of left [...] this encounter Patient Instructions * Patient Instructions* Naheed Neville RN - 07/27/2018 8:30 AM EST Information for Patients receiving radiation therapy to the Breast Please remember to stop taking fish oil during your radiation. Approximately two weeks after your first treatment, you may begin to experience side effects causedby the radiation. These effects may continue throughout the treatment period and not start improving until 1-2 weeks after treatment is completed. Your doctor will tell you which side effects you aremost likely to experience, when you will notice them and how long they might last. It is important to follow the appropriate instructions to minimize your discomfort. Skin Care ??? Wash skin in the treatment field with lukewarm water and mild or moisturizing, unscented soap daily. Blot skin dry with a soft towel. ??? Do not apply any ointment, salve, deodorant, perfume, cologne, cosmetic or self-remedy to the treatment area while you are undergoing radiation and for 1-2 weeks following treatment. An all natural deodorant with no aluminum can be used if necessary. ??? Moisturizing cream will be provided for you. This may be used in the treatment area once daily beginning on your first treatment day. Do not apply 2 hours before your radiation treatments. As dryness/redness develop you can use this more often. ??? Do not rub or scratch the skin in the treatment field. This includes shaving unless you use an electric razor. If your skin becomes dry or itchy, tell your nurse or doctor. If necessary, your doctor may order a medication specifically for this problem. ??? Do not use hot water bottles, heating lights, electric heating pads, or hot packs to the treatment area. ??? Keep treated areas out of the sun throughout the treatment period. Be careful of sun exposure to the treatment field for one year following treatment. Please use SPF> 30 to all exposed areas of skin and limit sun exposure. ??? Avoid tight fitting clothes. We would prefer that you wear a cotton t-shirt instead of a bra. If you are unable to go without a bra please wear a soft cotton bra without underwire. ??? Examine your skin in the treatment area daily and watch for changes. If you cannot reach the whole treatment field ask a family member to look at it and apply cream as needed. Be careful to keep the area under your breast clean and dry as this area can get irritated first. ??? You will meet with your nurse and doctor weekly. Dr. Quinteros sees her patients generally on Tuesdays. They will check your skin and help you with any side effects you are having. Please ask to seethe nurse if you have concerns in between these days. ??? During the last weeks of treatment you may notice some peeling of skin and/or a moist reaction.Be sure to let us know if this happens so we can provide you with further skin care instructions.. ??? Continue to stay active, walk daily, eat healthy foods and drink several glasses of water each day. Fatigue You may notice that you feel unusually tired towards the end of treatment. This is not unusual. We recommend that you pace your activities and plan for rest periods to avoid becoming over-tired. Feel free to direct any questions or concerns you may have related to your treatment to your nurse or doctor. [facility] Radiation Oncology Our normal business hours are: Thursday - Thursday 8 AM to 5 PM [place], [place], [place] For emergent situations after hours please call for either location and ask for the Radiation Oncologist research instrumentation technician. documented in this encounter Progress Notes * Naheed Neville RN - 07/27/2018 8:30 AM EST Radiation Oncology Simulation Note Quin Santana is here for radiation planning , undergoing a simulation to the Left breast with DI for breast cancer treatment . Usual radiation oncology routines and purpose of on treatment visits were explained. Jeans cream provided and instructions for use reviewed Anticipatory Guidance: Please see AVS. Barriers to Treatment/ Compliance issues identified: None identified. Patient confirms they can have no difficulties lying flat. pre- medication plan made: None needed. Referrals: BLANCHARD GRINDER OPERATOR per routine. * Alicia Quinteros MD - 07/27/2018 8:30 AM EST Here for sim. Sim: Breast bd immobilization; flat bbs on L breast lumpectomy scar; CT through chest showed heart to approach chest wall & so she was then instructed in deep inspiration breath hold (DIBH) &CTs attempted w/DIBH, but she was unable to follow DIBH protocol; 3D xrt planned. Tx Plan: 3D xrt. Start xrt 08/16/18. She was advised to not take fish oil omega 3 fatty acid during xrt. documented in this encounter Plan of Treatment Upcoming Encounters Date Type Department Care Team (Late st Contact Info) Description 05/30/2024 10:00 AM EST Appointment Mammography/[place] [address] Alicia Quinteros MD [facility] [place] [address] 08/11/2024 4:15 PM EST Office Visit Dermatology at [place] [address] [place] [address] Jhon Giron MD [address], [place] [address] 11/21/2024 2:00 PM EDT Office Visit Radiation Oncology at [address] [phone] Alicia Quinteros MD [facility] [place] [address] 10/06/2029 Hospital Encounter [place] [phone] Al Mendez MD [facility] [place] [address] Scheduled Procedures Name Priority Associated Diagnoses Date/Ti me @TOTAL KNEE REVISION ARTHROP LASTY, COMPLETE (WRVU 27.11) Instability Right TKA MODIFIER,GMK REVISION KNEE,MEDACTA Instability Right TKA documented as of this encounter Visit Diagnoses Diagnosis Malignant neoplasm of upper-outer quadrant of left female breast, unspecified estrogen receptor status documented in this encounter Care Teams Special Client Bus Driver Relationship Specialty Start Date End Date Avis Honeycutt APRN [address] [place] [address] PCP - General Family Medicine 05/27/18 12/17/20 documented as of this encounter
--- OUTSIDE RECORDS SUMMARY | 2024-04-14 10:39 | XMS_ITS | Encounter Summary ---
Author Organization [facility] [address] Care Team Providers Care Building Construction Foreman Name Role Phone HaseebAvis collins LEVON Primary Care Provider [phone] Reason for Referral * Consultation (Routine) - Closed Specialty Diagnoses / Procedures Referred By Agus govea Referred To Contact Endocrinology Diagnoses Malignant neoplasm of upper-outer quadrant of left female breast, unspecified estrogen receptor status Multiple thyroid nodules Alicia Quinteros MD [facility] [place] [address] [facility] Endocrinology [address] [place] [address] Referral ID Status Reason Start Date Expiration Date V isits Requested Visits Authorized [id number] Closed Consult, Test & Treat 09/07/2018 09/07/2019 1 1 Reason for Visit * Reason Comments On Treatment Visit Encounter Details Date Type Department Care Team (Late st Contact Info) Description 09/07/2018 4:00 PM EDT Office Visit Radiation Oncology at [address] [address] Alicia Quinteros MD [facility] [place] [address] Malignant neoplasm of upper-outer quadrant of left female breast, unspecified estrogen receptor status; Multiple thyroid nodules Social History Tobacco Use [...] Sign Reading Time Taken Comments Blood Pressure 149/82 09/07/2018 3:08 PM EDT Pulse 99 09/07/2018 3:08 PM EDT Temperature 36.8 ??C (98.2 ??F) 09/07/2018 3:08 PM ED T Respiratory Rate 18 09/07/2018 3:08 PM EDT Oxygen Saturation 99% 09/07/2018 3:08 PM EDT Inhaled Oxygen Concentration - - Weight 128.5 kg (283 lb 3.2 oz) 09/07/2018 3:08 PM EDT Height - - Body Mass Index 53.51 08/24/2018 3:41 PM EDT documented in this encounter Progress Notes * Alicia Quinteros MD - 09/07/2018 4:00 PM EDT Images from the original note were not included. 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 CURRENT TREATMENT DOSE: 26.6 Gy L breast ANTICIPATED TOTAL DOSE: 42.56 Gy L breast, 52.56 Gy lumpectomy bed L breast Current # of xrt received: 10 L breast Anticipated total # of xrt txs: 20 Evaluation of port verification films: Approved. For details, see electronic film record in [employer] System. Changes in Medical Condition: Oozing area in L axilla, for which Dr. Johnson started silvadene, which Quin says is soothing. Pain?: Tender @ area of oozing in L axilla. Your Medications Accurate as of 09/07/18 3:16 PM. If you have any questions, ask [...] by mouth daily. 10 mg Refills: 0 CREAM BASE TOP Apply topically. Jeans Cream. Apply to area of radiation twice a day but no less than 2 hours before a treatment. Refills: 0 EPINEPHrine 0.3 mg/0.3 mL Atin [...] by mouth daily. 20 mg Refills: 0 silver sulfADIAZINE 1 % Crea Commonly known as: SILVADENE Apply topically daily. Quantity: 50 g Refills: 0 Physical Exam: 283 lbs 98.2 F 99 18 149/82 SpO2 99% A&Ox3, NAD. 5 x 2 cm moist desquamation beneath fold in L axilla. Minimal erythema w/in rest of irrad'd area. Amb stable. Imagin07/27/18 Dx'ic Rad Interp CTsim: Two sub 5 mm pulmonary nodules, more likely benign intrapulmonary lymph nodes rather than mets; noncontrast CT in 3 mos rec'd. 1 cm hypodense lesion R thyroidlobe; US rec'd. Mild coronary artery atherosclerotic calcs. 09/03/18 thyroid US: 3 R thyroid nodules; 1 L thyroid nodule. Performance Status: KPS 100% Response to xrt: As expected. Irradiation Related Symptoms: Skin rxn. Treatment for Symptom Control: Given mepilex-lite, saline soaks, continue silvadene to area of moist desquamation. Continue Griffin's cream to rest of L breast. Meeting w/L. MS DuaneW. Pain Management: Not needed. Recommendation on Continuing Course of xrt: Discussed the 2 sub 5 mm nodules seen on CTsim & rec'd noncontrast CT chest in 3 mos; she agreed. Discussed thyroid US result & rec'd referral to Endocrinology @ [facility] & she agrees. Informed her & PCP of coronary artery atherosclerotic calcs. documented in this encounter Plan of Treatment Upcoming Encounters Date Type Department Care Team (Late st Contact Info) Description 05/30/2024 10:00 AM EST Appointment Mammography/[place] [address] Alicia Quinteros MD [facility] DR [place] [address] 08/11/2024 4:15 PM EST Office Visit Dermatology at [place] [address] [place] [phone] Jhon Giron MD [address], [place] [address] 11/21/2024 2:00 PM EDT Office Visit Radiation Oncology at [address] [address] Alicia Quinteros MD [facility] [place] [address] 10/06/2029 Hospital Encounter Main Operating Room [address] [place] [address] Al Mendez MD [facility] [place]THOPA[place] [address] Scheduled Procedures Name Priority Associated Diagnoses Date/Ti me @TOTAL KNEE REVISION ARTHROP LASTY, COMPLETE (WRVU 27.11) Instability Right TKA MODIFIER,GMK REVISION KNEE,MEDACTA Instability Right TKA Scheduled Referrals Name Type Priority Associated Diagnoses Order Schedule Referral to Endocrinology Outpatient Referral Routine Malignant neoplasm of upper-outer quadrant of left female breast, unspecified estrogen receptor status Multiple thyroid nodules Ordered: 09/07/2018 documented as of this encounter Visit Diagnoses Diagnosis Malignant neoplasm of upper-outer quadrant of left female breast, unspecified estrogen receptor status Multiple thyroid nodules Nontoxic multinodular goiter documented in this encounter Care Teams Building Construction Foreman Relationship Specialty Start Date End Date Avis Honeycutt, LEVON [address] [place] [address] PCP - General Family Medicine 05/27/18 12/17/20 documented as of this encounter
--- OUTSIDE RECORDS SUMMARY | 2024-04-14 10:39 | XMS_ITS | Encounter Summary ---
[place] [address] Care Team Providers Care Hotel Front Office Manager Name Role Phone Avis Honeycutt APRN Primary Care Provider [phone] Reason for Visit * Auth/Cert Specialty Diagnoses / Procedures Referred By Agus t Referred To Contact Diagnoses LEFT BREAST CANCER Procedures PRO MASTECTOMY, PARTIAL MASTECTOMY PARTIAL (WRVU 10.13) MODIFIER WITH NEEDLE LOC., LESION #1 Referral ID Status Reason Start Date Expiration Date Visits Re quested Visits Authorized [id number] 1 1 Encounter Details Date Type Department Care Team (Late st Contact Info) Description 06/24/2018 7:12 AM EST - 06/24/2018 1:50 PM EST Hospital Encounter [place] [phone] Frances Saldaña MD [facility] [address] Research subject Discharge Disposition: Home Social History Tobacco Use Types Packs/Day Years Used Date Smoking Tobacco: Never Smokeless Tobacco: Never Sex and Gender Information Value Date Recorded Sex Assigned at Female 07/24/2020 2:32 PM EST Gender Identity Not on file Sexual Orientation Straight 07/24/2020 2: 32 PM EST documented as of this encounter Last Filed Vital Signs Vital Sign Reading Time Taken Comments Blood Pressure 141/78 06/24/2018 12:15 PM EST Pulse 88 06/24/2018 7:48 AM EST Temperature 36.8 ??C (98.2 ??F) 06/24/2018 11:[address] Respiratory Rate 16 06/24/2018 12:46 PM EST Oxygen Saturation 96% 06/24/2018 12:15 PM EST Inhaled Oxygen Concentration - - [...] Saldaña if not indicated below. Please call [phone] to confirm date and time of your appointment if you do not hear from us inthe week or if you need to make changes. Future Appointments Date Time Provider Department Center 07/07/2018 11:45 AM Frances Saldaña MD [facility] 07/12/2018 8:[address] [facility] [place] [facility] 07/12/2018 9:00 AM Alicia Quinteros MD [facility] 07/22/2018 1:00 PM Bill Jeong MD [facility] Call Doctor for: Worsening redness or drainage from your incision lasting longer than 5 days following surgery Any foul-smelling drainage from the incision Fevers greater than 101 degrees F Persistent nausea or vomiting (this may be related to opioid pain medications) Phone number for questions: [phone] before 5 PM weekdays [phone] after 5 PM and on weekends/holidays documented [...] daily. 0 04/08/2018 01/15/2022 NARCAN 4 mg/actuation [place], Non-Aerosol 4 mg by Nasal route as [...] Saldaña MD - 06/24/2018 1:50 PM EST [facility] Operative Note Patient Name: Quin Santana : [id number] MR#: [id number] Case Date: 06/24/2018 Surgeon: Surgeon(s) and Role: [...] Operative Note Patient Name: Quin Santana : [id number] MR#: [id number] Case Date: 06/24/2018 Surgeon: Surgeon(s) and Role: [...] 05/30/2024 10:00 AM EST Appointment Mammography/[place] [address] Alicia Quinteros MD [facility] [place] [address] 08/11/2024 4:15 PM EST Office Visit Dermatology at [place] [address] [place] [phone] Jhon Giron MD [address], [place] [address] 11/21/2024 2:00 PM EDT Office Visit Radiation Oncology at [address] [phone] Alicia Quinteros MD [facility] [place] [address] 10/06/2029 Hospital Encounter [place] [address] Al Mendez MD [facility] [place] [address] Scheduled Procedures Name Priority Associated Diagnoses Date/Ti [...] AM EST 06/24/2018 11:12 AM EST Narrative [facility] - 06/24/2018 11:12 AM EST Specimen requisition ordered. ??Separate Pathology report to follow Resulting Agency Comment Spec In Lab Frances Briscoe MD PATHOLOGY/CYTOLO GY ORDERABLES Performing Organization Address [facility] Co de Phone Number [facility] [place] [address] * Specimen to Pathology (06/24/2018 10:45 AM EST) AP Specimen 06/24/2018 10:4 5 AM EST 06/24/2018 11:34 AM EST Narrative [facility] - 06/24/2018 11:34 AM EST Specimen requisition ordered. ??Separate Pathology report to follow Resulting Agency Comment Spec In Lab Frances Briscoe MD PATHOLOGY/CYTOLO GY ORDERABLES Performing Organization Address [facility] de Phone Number [facility] [place] [address] * Surgical Pathology Report (06/24/2018 10:38 AM EST) Final Diagnosis [id number] ? Location: [facility]; A The signing pathologist has (i) examined the [...] 2017 Agile Release Electronically signed by: ??Karsten WILLOUGHBY Leidy SalgadoLior Verified: ??06/29/2018 ?Pathologist Performed at: ??-[facility] Dept. of Pathology, [place], [place] CLINICAL INFORMATION Specimen Submitted: A - [...] 0.3 cm to deep/black margin. Sections/Processi ng: Jacquard Loom Heddles Tier sections in 30 cassettes as follows: ? B1-B2: ??Jacquard Loom Heddles Tier I, cranial/orange (medial/red) ? B3: ??Jacquard Loom Heddles Tier, full thickness II ? B4-B5: ??Jacquard Loom Heddles Tier III ? B6-B9: ??Jacquard Loom Heddles Tier IV ? B10-B14: ??Jacquard Loom Heddles Tier V ? B15-B18: ?? including fibrous tissue and edge of lateral/yellow margin in B17/B18 ? B19-B20: ??Slice VII ? B21-B22: ??Jacquard Loom Heddles Tier VIII ? B23-B25: ??Jacquard Loom Heddles Tier IX ? B26-B27: ??Jacquard Loom Heddles Tier X ? B28: ??Jacquard Loom Heddles Tier XI ? B29: ??Jacquard Loom Heddles Tier XII ? B30: ??Slice XIII Ischemic Time: 1.4 hours ??pps 06/29/2018 1:27 PM EST [facility] BREAST STRUCTURE / Unknown 06/24/2018 10:38 AM EST 06/24/2018 10:38 AM EST BREAST STRUCTURE / Unknown 06/24/2018 10:38 AM EST 06/24/2018 10:38 AM EST Frances Briscoe MD PATHOLOGY/CYTOLO GY ORDERABLES Performing Organization Address [facility]/State/[facility] Co de Phone Number [facility] [place] [address] documented in this encounter Visit Diagnoses Diagnosis Research subject Reserved for inherently not codable concepts WITHOUT codable children documented in this encounter Administered Medications Inactive Administered Medications - up to 3 most recent administrations Medication Order MAR Action Action Date Dose Rate Site acetaminophen (TYLENOL) tablet 1,000 mg 1,000 mg, Oral, ONCE, 1 dose, On Jessica 06/24/18 at 0800, Administer with SIP of H2O only., Day of Surgery (Day of Procedure), Routine Given 06/24/2018 8:00 AM EST 1,000 mg documented in this encounter Active and Recently [...] mg/mL) injection (CANCELED) ONCE PRN, Starting on Ejssica 06/24/18 at 1017, Until Jessica 06/24/18 at [...] bupivicaine) documented in this encounter Care Teams Hotel Front Office Manager Relationship Specialty Start Date End Date Avis Honeycutt, NURSING SECRETARY [address] [place] [address] PCP - General Family Medicine 05/27/18 12/17/20 documented as of this encounter
--- OUTSIDE RECORDS SUMMARY | 2024-04-14 10:39 | XMS_ITS | Encounter Summary ---
Author Organization [facility] [place] [address] Care Team Providers Care Casino Porter Name Role Phone Avis Honeycutt HOUSE FATHER Primary Care Provider [phone] Reason for Visit * Reason Comments On Treatment Visit Encounter Details Date Type Department Care Team (Late st Contact Info) Description 08/24/2018 3:30 PM EDT Office Visit Radiation Oncology at [address] [phone] Alicia Quinteros MD [facility] [place] [address] Lung nodules; Thyroid nodule; Malignant neoplasm of upper-outer quadrant of left [...] Sign Reading Time Taken Comments Blood Pressure 147/81 08/24/2018 3:41 PM EDT Pulse 90 08/24/2018 3:41 PM EDT Temperature 36.9 ??C (98.4 ??F) 08/24/2018 3:41 PM ED T Respiratory Rate 18 08/24/2018 3:41 PM EDT Oxygen Saturation 99% 08/24/2018 3:41 PM EDT Inhaled Oxygen Concentration - - Weight 131.5 kg (290 lb) 08/24/2018 3:41 PM EDT Height 154.9 cm (5' 1) 08/24/2018 3:41 PM EDT Body Mass Index 54.8 08/24/2018 3:41 PM EDT documented in this encounter Progress Notes * Alicia Quinteros MD - 08/24/2018 3:30 PM EDT Images from the original note were not included. DIAGNOSIS: Breast ca, L, DCIS, gr 2, ER+IL+, 3.2 cm, +necrosis, s/p lumpectomy, pTis cN0. CURRENT TREATMENT DOSE: 5.32 Gy ANTICIPATED TOTAL DOSE: 52.56 Gy Current # of xrt received: 2 Anticipated total # of xrt txs: 20 Evaluation of port verification films: Approved. For details, see electronic film record in [employer] System. Changes in Medical Condition: None. Pain?: None. Your Medications Accurate as of 08/24/18 4:04 PM. If you have any questions, ask [...] mouth daily. 20 mg Refills: 0 Physical Exam: BP 147/81 (Patient Position: Sitting) Pulse 90 Temp 36.9 ??C (98.4 ??F) (Oral) Resp 18 Ht 154.9 cm (5' 1) Wt 131.5 kg (290 lb) SpO2 99% BMI 54.80 kg/m?? A&Ox3, NAD. Amb stable. Imagin07/27/18 Dx'ic Rad Interp CTsim: Two sub 5 mm pulmonary nodules, more likely benign intrapulmonary lymph nodes rather than mets; noncontrast CT in 3 mos rec'd. 1 cm hypodense lesion R thyroidlobe; US rec'd. Mild coronary artery atherosclerotic calcs. Performance Status: KPS 100% Response to xrt: As expected. Irradiation Related Symptoms: None. Treatment for Symptom Control: Griffin's cream. Pain Management: Not needed. Recommendation on Continuing Course of xrt: Discussed the 2 sub 5 mm nodules seen on CTsim & rec'd noncontrast CT chest in 3 mos; she agrees. Discussed thyroid nodule & rec'd US; she agrees. Informed her of coronary artery atherosclerotic calcs & rec'd that I inform her PCP; she agrees. Cc: Carisa Honeycutt APRN documented in this encounter Plan of Treatment Upcoming Encounters Date Type Department Care Team (Late st Contact Info) Description 05/30/2024 10:00 AM EST Appointment Mammography/[place] [address] Alicia Quinteros MD [facility] [place] [address] 08/11/2024 4:15 PM EST Office Visit Dermatology at [place] [address] [place] [phone] Jhon Giron MD [address], [place] [address] 11/21/2024 2:00 PM EDT Office Visit Radiation Oncology at [address] [phone] Alicia Quinteros MD [facility] [place] [address] 10/06/2029 Hospital Encounter [place] [address] Al Mendez MD [facility] DR [place] [address] Scheduled Procedures Name Priority Associated Diagnoses Date/Ti me @TOTAL KNEE REVISION ARTHROP LASTY, COMPLETE (WRVU 27.11) Instability Right TKA MODIFIER,GMK REVISION KNEE,MEDACTA Instability Right TKA documented as of this encounter Visit Diagnoses Diagnosis Lung nodules Other nonspecific abnormal finding of lung field Thyroid nodule Nontoxic uninodular goiter Malignant neoplasm of upper-outer quadrant of left female breast, unspecified estrogen receptor status documented in this encounter Care Teams Casino Porter Relationship Specialty Start Date End Date Avis Honeycutt APRN [address] [place] [address] PCP - General Family Medicine 05/27/18 12/17/20 documented as of this encounter
--- OUTSIDE RECORDS SUMMARY | 2024-04-14 10:39 | XMS_ITS | Encounter Summary ---
[place] [address] Care Team Providers Care Composition Siding Worker Name Role Phone HaseebAvis collins LEVON Primary Care Provider [phone] Encounter Details Date Type Department Care Team (Late st Contact Info) Description 08/30/2018 Notes Only Radiation Oncology at [address] [phone] Elizabeth Bland, RN Social History Tobacco Use Types Packs/Day [...] Pressure - - Pulse - - Temperature 37.2 ??C (99 ??F) 08/30/2018 3:43 PM EDT Respiratory Rate - - Oxygen Saturation - - Inhaled Oxygen Concentration - - Weight - - Height - - Body Mass Index - - documented in this encounter Progress Notes * Elizabeth Bland RN - 08/30/2018 3:43 PM EDT Radiation Oncology Nursing on Treatment Note Patient has received 6 FXs 1596 cGy To the left breast For treatment of breast cancer Side effects that patient is experiencing: She complains of feeling hot and asked that her temperature be checked. She states she takes Black Cohosh for hot flashes which are helpful at times. She has some facial flushing. She expresses some anxiety with radiation treatments and stress with her job, but also voices gratitude that the people she works with are very supportive. Assessment: Vitals: 08/30/18 1543 Temp: 37.2 ??C (99 ??F) See flow sheet or click on expand all in this progress note. Anticipatory guidance/ interventions: She was reassured that she is not running a fever. Emotional support provided. Plan: Weekly on-treatment visit tomorrow ( every Thursday) with Dr Quinteros and daily visits prn with nursing documented in this encounter Plan of Treatment Upcoming Encounters Date Type Department Care Team (Late st Contact Info) Description 05/30/2024 10:00 AM EST Appointment Mammography/[place] [address] Alicia Quinteros MD [facility] [place] [address] 08/11/2024 4:15 PM EST Office Visit Dermatology at [address] [place] [address] Jhon Giron MD [address] [place] [address], [place] [address] 11/21/2024 2:00 PM EDT Office Visit Radiation Oncology at [address] [phone] Alicia Quinteros MD [facility] [place] [address] 10/06/2029 Hospital Encounter [place] [phone] Al Mendez MD [facility] [place] [address] Scheduled Procedures Name Priority Associated Diagnoses Date/Ti me @TOTAL KNEE REVISION ARTHROP LASTY, COMPLETE (WRVU 27.11) Instability Right TKA MODIFIER,GMK REVISION KNEE,MEDACTA Instability Right TKA documented as of this encounter Visit Diagnoses Not on filedocumented in this encounter Care Teams Composition Siding Worker Relationship Specialty Start Date End Date Avis Honeycutt, LEVON [address] [place] [address] PCP - General Family Medicine 05/27/18 12/17/20 documented as of this encounter
--- OUTSIDE RECORDS SUMMARY | 2024-04-14 10:39 | XMS_ITS | Encounter Summary ---
[place] [address] Care Team Providers Care Yoga Teacher Name Role Phone Avis Honeycutt EXECUTIVE SECRETARY Primary Care Provider [phone] Encounter Details Date Type Department Care Team (Latest Contact Info) Description 10/12/2018 2:20 PM EDT Laboratory Appointment Lab [address] [place] [address] Multiple thyroid nodules Social History Tobacco Use [...] 05/30/2024 10:00 AM EST Appointment Mammography/[place] [address] [facility] [place] [address] 08/11/2024 4:15 PM EST Office Visit Dermatology at [address] [place] [address] Jhon Giron MD [address], [place] [address] 11/21/2024 2:00 PM EDT Office Visit Radiation Oncology at [address] [phone] [facility] [place] [address] 10/06/2029 Hospital Encounter [place] [phone] Al Mendez MD [facility] [place] [address] Scheduled Procedures Name Priority Associated Diagnoses Date/Ti me @TOTAL KNEE REVISION ARTHROP LASTY, COMPLETE (WRVU 27.11) Instability Right TKA MODIFIER,GMK REVISION KNEE,MEDACTA Instability Right TKA documented as of this encounter Procedures Procedure Name Priority Date/Time Associated Diagnosis Comments TSH Routine 10/12/2018 2:28 PM EDT Multiple thyroid nodules T4, FREE Routine 10/12/2018 2:28 PM EDT documented in this encounter Results * T4, free (10/12/2018 2:28 PM EDT) Free T4 1.18 0.93 - 1.70 ng/dL [facility] Blood specimen (specimen) Venous Draw / Unknown 10/12/2018 2:28 PM EDT 10/12/2018 2:43 PM EDT Narrative Resulting Agency Comment Spec In Lab Dago Paz MD CHEMISTRY ORDERABLE S [facility] [place] [address] * (ABNORMAL) TSH (10/12/2018 2:28 PM EDT) Thyroid Stimulating Hormone 4.39(H) 0.27 - 4.20 mcIU/mL [facility] Blood specimen (specimen) 10/12/2018 2:28 PM EDT 10/12/2018 2:37 PM EDT Narrative Resulting Agency Comment Spec In Lab Dago Paz MD CHEMISTRY ORDERABLE S Performing Organization Address City/State/[facility] Co de Phone Number [facility] [place] [address] documented in this encounter Visit Diagnoses Diagnosis Multiple thyroid nodules Nontoxic multinodular goiter documented in this encounter Care Teams Yoga Teacher Relationship Specialty Start Date End Date Avis Honeycutt, LEVON [address] [place] [address] PCP - General Family Medicine 05/27/18 12/17/20 documented as of this encounter
--- OUTSIDE RECORDS SUMMARY | 2024-04-14 10:39 | XMS_ITS | Encounter Summary ---
[place] [address] Care Team Providers Care Vice President Risk Management Name Role Phone Avis Honeycutt LEVON Primary Care Provider [phone] Reason for Visit * Reason Onset Date Comments Follow-up 07/01/2018 Encounter Details Date Type Department Care Team (Late st Contact Info) Description 07/01/2018 Telephone [place] [address] Amber Art APRN [facility] [place] [address] Follow-up Social History Tobacco Use Types Packs/Day Years Used Date Smoking Tobacco: Never Smokeless Tobacco: Never Sex and Gender Information Value Date Recorded Sex Assigned at Female 07/24/2020 2:32 PM EST Gender Identity Not on file Sexual Orientation Straight 07/24/2020 2: 32 PM EST documented as of this encounter Miscellaneous Notes * Telephone Encounter - Amber Art APRN - 07/01/2018 7:58 AM EST I called Quin with her pathology report (DCIS/negative margins). She is doing well. I answered her questions and she will return for a follow up appointment on 07/07/18. documented in this encounter Plan of Treatment Upcoming Encounters Date Type Department Care Team (Late st Contact Info) Description 05/30/2024 10:00 AM EST Appointment Mammography/[place] [address] Alicia Quinteros MD [facility] [place] [address] 08/11/2024 4:15 PM EST Office Visit Dermatology at [place] [address] [place] [phone] Jhon Giron MD [address], [place] [address] 11/21/2024 2:00 PM EDT Office Visit Radiation Oncology at [address] [phone] Alicia Quinteros MD [facility] [place] [address] 10/06/2029 Hospital Encounter [place] [address] Al Mendez MD [facility] [place] [address] Scheduled Procedures Name Priority Associated Diagnoses Date/Ti me @TOTAL KNEE REVISION ARTHROP LASTY, COMPLETE (WRVU 27.11) Instability Right TKA MODIFIER,GMK REVISION KNEE,MEDACTA Instability Right TKA documented as of this encounter Visit Diagnoses Not on filedocumented in this encounter Care Teams Vice President Risk Management Relationship Specialty Start Date End Date Avis Honeycutt APRN [address] [place] [address] PCP - General Family Medicine 05/27/18 12/17/20 documented as of this encounter
--- OUTSIDE RECORDS SUMMARY | 2024-04-14 10:39 | XMS_ITS | Encounter Summary ---
Author Organization [facility] [place] [address] Care Team Providers Care Middle School Music Teacher Name Role Phone Avis Honeycutt STATION COOK Primary Care Provider [phone] Reason for Visit * Reason Comments On Treatment Visit Encounter Details Date Type Department Care Team (Late st Contact Info) Description 08/31/2018 4:00 PM EDT Office Visit Radiation Oncology at [address] [address] Alicia Quinteros MD [facility] [place] [address] Malignant neoplasm of upper-outer quadrant of left [...] Sign Reading Time Taken Comments Blood Pressure 135/85 08/31/2018 4:03 PM EDT Pulse 95 08/31/2018 4:03 PM EDT Temperature 36.9 ??C (98.4 ??F) 08/31/2018 4:03 PM ED T Respiratory Rate 18 08/31/2018 4:03 PM EDT Oxygen Saturation 96% 08/31/2018 4:03 PM EDT Inhaled Oxygen Concentration - - Weight 129.7 kg (286 lb) 08/31/2018 4:03 PM EDT Height - - Body Mass Index 54.04 08/24/2018 3:41 PM EDT documented in this encounter Progress Notes * Alicia Quinteros MD - 08/31/2018 4:00 PM EDT Images from the original note were not included. 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 CURRENT TREATMENT DOSE: 18.62 Gy L breast ANTICIPATED TOTAL DOSE: 42.56 Gy L breast, 52.56 Gy lumpectomy bed L breast Current # of xrt received: 7 Anticipated total # of xrt txs: 20 Evaluation of port verification films: Approved. For details, see electronic film record in [employer]. Changes in Medical Condition: Met w/LFADI Cazares, yesterday for emotional support, which helped her feel much better. Pain?: None. Your Medications Accurate as of 08/31/18 4:22 PM. If you have any questions, ask [...] 20 mg Refills: 0 Physical Exam: BP 135/85 (Patient Position: Sitting) Pulse 95 Temp 36.9 ??C (98.4 ??F) (Oral) Resp 18 Wt 129.7 kg (286 lb) SpO2 96% BMI 54.04 kg/m?? A&Ox3, NAD. Minimal erythema w/in irrad'd area. Amb stable. Imagin07/27/18 Dx'ic Rad Interp CTsim: Two sub 5 mm pulmonary nodules, more likely benign intrapulmonary lymph nodes rather than mets; noncontrast CT in 3 mos rec'd. 1 cm hypodense lesion R thyroidlobe; US rec'd. Mild coronary artery atherosclerotic calcs. Performance Status: KPS 100% Response to xrt: As expected. Irradiation Related Symptoms: Skin rxn. Treatment for Symptom Control: Griffin's cream. Meeting w/L. MS DuaneW. Pain Management: Not needed. Recommendation on Continuing Course of xrt: Discussed the 2 sub 5 mm nodules seen on CTsim & rec'd noncontrast CT chest in 3 mos; she agreed. Discussed thyroid nodule & rec'd US which will bedone 09/03/18. Informed her & PCP of coronary artery atherosclerotic calcs. documented in this encounter Plan of Treatment Upcoming Encounters Date Type Department Care Team (Late st Contact Info) Description 05/30/2024 10:00 AM EST Appointment Mammography/[place] [address] Alicia Quinteros MD [facility] [place] [address] 08/11/2024 4:15 PM EST Office Visit Dermatology at [place] [address] [place] [phone] Jhon Giron MD [address], [place] [address] 11/21/2024 2:00 PM EDT Office Visit Radiation Oncology at [address] [phone] Alicia Quinteros MD [facility] [place] [address] 10/06/2029 Hospital Encounter [place] [address] Al Mendez MD [facility] [place] [address] Scheduled Procedures Name Priority Associated Diagnoses Date/Ti me @TOTAL KNEE REVISION ARTHROP LASTY, COMPLETE (WRVU 27.11) Instability Right TKA MODIFIER,GMK REVISION KNEE,MEDACTA Instability Right TKA documented as of this encounter Visit Diagnoses Diagnosis Malignant neoplasm of upper-outer quadrant of left female breast, unspecified estrogen receptor status documented in this encounter Care Teams Middle School Music Teacher Relationship Specialty Start Date End Date Avis Honeycutt APRN [address] [place] [address] PCP - General Family Medicine 05/27/18 12/17/20 documented as of this encounter
--- OUTSIDE RECORDS SUMMARY | 2024-04-14 10:39 | XMS_ITS | Encounter Summary ---
Author Organization [facility] [place] [address] Care Team Providers Care Psychiatric Social Worker Supervisor Name Role Phone Avis Honeycutt APRN Primary Care Provider [phone] Encounter Details Date Type Department Care Team (Late st Contact Info) Description 09/03/2018 6:25 PM EDT Ancillary Procedure Radiology Library at [facility] [place] [phone] Alicia Quinteros MD [facility] [place] [address] Social History Tobacco Use Types Packs/Day Years [...] 05/30/2024 10:00 AM EST Appointment Mammography/DXA at [facility] [place] [phone] Alicia Quinteros MD [facility] [place] [address] 08/11/2024 4:15 PM EST Office Visit Dermatology at [place] [address] [place] [phone] Jhon Giron MD [address], [place] [address] 11/21/2024 2:00 PM EDT Office Visit Radiation Oncology at [address] [phone] Alicia Quinteros MD [facility] [place] [address] 10/06/2029 Hospital Encounter [place] [address] Al Mendez MD [facility] [place] [address] Scheduled Procedures Name Priority Associated Diagnoses Date/Ti me @TOTAL KNEE REVISION ARTHROP LASTY, COMPLETE (WRVU 27.11) Instability Right TKA MODIFIER,GMK REVISION KNEE,MEDACTA Instability Right TKA documented as of this encounter Procedures Procedure Name Priority Date/Time Associated Diagnosis Comments FILM LIBRARY STORAGE ONLY ULTRASOUND STUDY Routine 09/03/2018 6:24 PM EDT documented in this encounter Results * Film Library- Storage Only Ultrasound Study (09/03/2018 6:24 PM EDT) Narrative RAD - 09/03/2018 6:24 PM EDT This exam is auto-finalizing. It's purpose is for storage only. Alicia Quinteros MD IMG FILM LIBRARY ORD ERABLES [place], [place] documented in this encounter Visit Diagnoses Not on filedocumented in this encounter Care Teams Psychiatric Social Worker Supervisor Relationship Specialty Start Date End Date Avis Honeycutt, LEVON [address] [place] [address] PCP - General Family Medicine 05/27/18 12/17/20 documented as of this encounter
--- OUTSIDE RECORDS SUMMARY | 2024-04-14 10:39 | XMS_ITS | Encounter Summary ---
Author Organization [facility] [place] [address] Care Team Providers Care Manager Wound Care Name Role Phone TangelaAvis LEVON Primary Care Provider [phone] Encounter Details Date Type Department Care Team (Late st Contact Info) Description 06/10/2018 Notes [place] [address] Quin Suggs MSW Social History Tobacco Use Types Packs/Day Years Used Date Smoking Tobacco: Never Smokeless Tobacco: Never Sex and Gender Information Value Date Recorded Sex Assigned at Female 07/24/2020 2:32 PM EST Gender Identity Not on file Sexual Orientation Straight 07/24/2020 2: 32 PM EST documented as of this encounter Progress Notes * Quin Suggs MSW - 06/10/2018 3:58 PM EST OFFICE OF CARE MANAGEMENT/CONTINUING AUTO REPAIR TECHNICIAN Reason for referral: Quin Santana Is a 52 year old, female who was seen in the multidisciplinary breast care clinic as she was recently diagnosed with ER/UT+, left breast, DCIS. Pt met with Dr. Zee and has decided to have a lumpectomy/SLNB followed by radiation therapy which she will receive at the [facility]. CCM met with pt to complete a psychosocial assessment and to explain my role in the breast program. Pt was encouraged to contact me if she has any questions or concerns. 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 Pt has support from her family and friends and was accompanied to today's visit by her friend. 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 She has medical coverage through [employer] of [place]. Pt is not concerned about finances especially since she does not anticipate having to take time off from work. Tobacco/drug/alcohol history: Pt states she does not [...] Pt states she feels less anxious since meeting with Dr. Zee. She has a history of depression and is taking Fluoxetine and Xanax. Pt states she often juhi with stress by using humor. I reviewed some of the support and services available to pt in [facility]. Plan: [facility] will continue to follow pt to assess and assist with their psychosocial needs. [facility] [place] [address] Pager #[phone] documented in this encounter Plan of Treatment Upcoming Encounters Date Type Department Care Team (Late st Contact Info) Description 05/30/2024 10:00 AM EST Appointment Mammography/[place] [address] Alicia Quinteros MD [facility] [place] [address] 08/11/2024 4:15 PM EST Office Visit Dermatology at [place] [address] [place] [address] Jhon Giron MD [address], [place] [address] 11/21/2024 2:00 PM EDT Office Visit Radiation Oncology at [address] [phone] Alicia Quinteros MD [facility] [place] [address] 10/06/2029 Hospital Encounter [place] [address] Al Mendez MD [facility] ORTHOPAED[place] [address] Scheduled Procedures Name Priority Associated Diagnoses Date/Ti me @TOTAL KNEE REVISION ARTHROP LASTY, COMPLETE (WRVU 27.11) Instability Right TKA MODIFIER,GMK REVISION KNEE,MEDACTA Instability Right TKA documented as of this encounter Visit Diagnoses Not on filedocumented in this encounter Care Teams Manager Wound Care Relationship Specialty Start Date End Date Avis Honeycutt APRN [address] [place] [address] PCP - General Family Medicine 05/27/18 12/17/20 documented as of this encounter
--- OUTSIDE RECORDS SUMMARY | 2024-04-14 10:39 | XMS_ITS | Encounter Summary ---
Author Organization [facility] [place] [address] Care Team Providers Care Tire Care Manager Name Role Phone WilfredoAvis ortiz LEVON Primary Care Provider [phone] Encounter Details Date Type Department Care Team (Late st Contact Info) Description 09/05/2018 Orders Only [place] [address] Afua Johnson MD [facility] [address] [place] [address] Ductal carcinoma in situ (DCIS) of left [...] as of this encounter Progress Notes * Afua Johnson MD - 09/05/2018 10:03 AM EDT Quin phoned health information clerk radiation oncologist. She has received 10 of 20 fractions, whole breast XRT. She reports that she is very uncomfortable and has new blistering and oozing in the left axillary area. She denies fever or other signs of infection. A/P- Silvadene Rx called into local pharmacy and she will be seen by MD prior to treatment tomorrow. She will also monitor her temperature and she knows to seek urgent care tx if fever or other signs of infection. documented in this encounter Plan of Treatment Upcoming Encounters Date Type Department Care Team (Late st Contact Info) Description 05/30/2024 10:00 AM EST Appointment Mammography/[place] [address] Alicia Quinteros MD [facility] [address] [place] [address] 08/11/2024 4:15 PM EST Office Visit Dermatology at [address] [place] [address] Jhon Giron MD [address], [place] [address] 11/21/2024 2:00 PM EDT Office Visit Radiation Oncology at [address] [phone] Alicia Quinteros MD [facility] [address] [place] [address] 10/06/2029 Hospital Encounter [place] [address] Al Mendez MD [facility] [place]THOP[place] [address] Scheduled Procedures Name Priority Associated Diagnoses Date/Ti me @TOTAL KNEE REVISION ARTHROP LASTY, COMPLETE (WRVU 27.11) Instability Right TKA MODIFIER,GMK REVISION KNEE,MEDACTA Instability Right TKA documented as of this encounter Visit Diagnoses Diagnosis Ductal carcinoma in situ (DCIS) of left breast documented in this encounter Care Teams Tire Care Manager Relationship Specialty Start Date End Date Avis Honeycutt, LEVON [address] [place] [address] PCP - General Family Medicine 05/27/18 12/17/20 documented as of this encounter
--- OUTSIDE RECORDS SUMMARY | 2024-04-14 10:39 | XMS_ITS | Encounter Summary ---
Author Organization [facility] [place] [address] Care Team Providers Care Lusterer Name Role Phone Avis Honeycutt LEVON Primary Care Provider [phone] Encounter Details Date Type Department Care Team (Late st Contact Info) Description 08/30/2018 Notes Only Radiation Oncology at [address] [phone] Georgia Zepeda, FLUME MAKER OFFICE OF CARE MANAGEMENT Social History Tobacco Use Types Packs/Day Years [...] as of this encounter Progress Notes * Georgia Zepeda, FLUME MAKER - 08/30/2018 2:52 PM EDT Informed by Paula Caraballo, Clinical [place] that pt called asking to see FLUME MAKER due to difficulty coping. Met with pt prior to RT treatment. Pt reporting she has a history of anxiety. She hs been involved with counseling and has a tool box of ways to help manage her anxiety and panic attacks. Today shejust is having trouble coping. She shared every twinge, bump, ache makes her worry. She needs a scan for her thyroid and she is thinking the worse. She describes feeling like a stress case and she is freaking out over everything. 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 She is wondering if she is getting sick. She just wants to get into bed and cuddle her dog. Able to talk with pt about how she is feeling. Told her is was okay to have a mini freak out but weneeded a plan moving forward to provide her with the support she needs. Reminded her she has a teamhere and she can call at anytime with questions and concerns. Encouraged her to use some of her time off from school to give herself a break and regroup especially when she does not feel she is not living up to her own standard of her best work. She acknowledged her head master has suggested she take some time to take care of herself during her treatments and she feels she can discuss this further with him. Encouraged pt to give herself a break. Pt reports her extended family is in [place]. She'd like to finally see her new nephew and made some travel plans which might be to soon after treatment is done. Her parents are there also. They do cause some of her stress. Pt reports she has a lot of support teams locally and they are waiting for her to let them help her. Suggested she let them help out. Pt responded to the support offered and appears she may consider some suggestions about some changes she can make to limited the stress she is under. Encouraged to to call or we can talk when ever she wants. She also has her mental health provider available to her. Gave pt FLUME MAKER contact information and will follow for support and resources. documented in this encounter Plan of Treatment Upcoming Encounters Date Type Department Care Team (Late st Contact Info) Description 05/30/2024 10:00 AM EST Appointment Mammography/[place] [address] Alicia Quinteros MD [facility] [place] [address] 08/11/2024 4:15 PM EST Office Visit Dermatology at [place] [address] [place] [phone] Jhon Giron MD [address], [place] [address] 11/21/2024 2:00 PM EDT Office Visit Radiation Oncology at [address] [phone] Alicia Quinteros MD [facility] [place] [address] 10/06/2029 Hospital Encounter [place] [address] Al Mendez MD [facility] [place] [address] Scheduled Procedures Name Priority Associated Diagnoses Date/Ti me @TOTAL KNEE REVISION ARTHROP LASTY, COMPLETE (WRVU 27.11) Instability Right TKA MODIFIER,GMK REVISION KNEE,MEDACTA Instability Right TKA documented as of this encounter Visit Diagnoses Not on filedocumented in this encounter Care Teams Lusterer Relationship Specialty Start Date End Date Avis Honeycutt APRN [address] [place] [address] PCP - General Family Medicine 05/27/18 12/17/20 documented as of this encounter
--- OUTSIDE RECORDS SUMMARY | 2024-04-14 10:39 | XMS_ITS | Encounter Summary ---
Author Organization [facility] [place] [address] Care Team Providers Care Blasting Gang Miner Name Role Phone HaseebAvis collins LEVON Primary Care Provider [phone] Encounter Details Date Type Department Care Team (Late st Contact Info) Description 09/20/2018 Notes Only Radiation Oncology at [address] [phone] Elizabeth Bland, RN Social History Tobacco Use [...] as of this encounter Progress Notes * Elizabeth Bland RN - 09/20/2018 2:51 PM EDT Radiation Oncology Nursing Completion of Treatment Note Patient completed : radiation treatments to left breast Side effects/problems noted today: moist desquamation to left axilla. She applying silvadene to this area and cleaning it with saline soaks. She asked for more mepilex pads. She finds the silvadene and mepilex her helpful for her discomfort. Teaching and discharge instructions reviewed: 2 boxes of 6x6 mepilex pads provided. She was instructed to call clinic if she develops increase skin reaction or pain. Expected follow up/referrals: Per Dr Quinteros in 1 month Patient/family response to instructions: Patient verbalized understanding of these instructions. documented in this encounter Plan of Treatment Upcoming Encounters Date Type Department Care Team (Late st Contact Info) Description 05/30/2024 10:00 AM EST Appointment Mammography/[place] [address] Alicia Quinteros MD [facility] [place] [address] 08/11/2024 4:15 PM EST Office Visit Dermatology at [address] [place] [phone] Jhon Giron MD [address] [facility], [place] [address] 11/21/2024 2:00 PM EDT Office Visit Radiation Oncology at [address] [phone] Alicia Quinteros MD [facility] [place] [address] 10/06/2029 Hospital Encounter [place] [address] Al Mendez MD [facility] [place] [address] Scheduled Procedures Name Priority Associated Diagnoses Date/Ti me @TOTAL KNEE REVISION ARTHROP LASTY, COMPLETE (WRVU 27.11) Instability Right TKA MODIFIER,GMK REVISION KNEE,MEDACTA Instability Right TKA documented as of this encounter Visit Diagnoses Not on filedocumented in this encounter Care Teams Blasting Gang Miner Relationship Specialty Start Date End Date Avis Honeycutt, SPLITTING MACHINE FEEDER [address] [place] [address] PCP - General Family Medicine 05/27/18 12/17/20 documented as of this encounter
--- OUTSIDE RECORDS SUMMARY | 2024-04-14 10:39 | XMS_ITS | Encounter Summary ---
Author Organization [facility] Address [facility] [place] [address] Care Team Providers Care Electronic Typesetting Machine Operator Name Role Phone Avis Honeycutt LEVON Primary Care Provider [phone] Encounter Details Date Type Department Care Team (Late st Contact Info) Description 06/09/2018 9:30 AM EST Office Visit Hematology [place] [phone] Frances Zee MD [facility] [place] [place] [address] Audrey Shannon RN Ductal carcinoma in situ [...] Sign Reading Time Taken Comments Blood Pressure 124/69 06/09/2018 9:36 AM EST Pulse 93 06/09/2018 9:36 AM EST Temperature 36.9 ??C (98.4 ??F) 06/09/2018 9:36 AM ES T Respiratory Rate 18 06/09/2018 9:36 AM EST Oxygen Saturation 97% 06/09/2018 9:36 AM EST Inhaled Oxygen Concentration - - Weight 126.6 kg (279 lb) 06/09/2018 9:36 AM EST Height 158 cm (5' 2.21) 06/09/2018 9:36 AM EST Body Mass Index 50.69 06/09/2018 9:36 AM EST documented in this encounter Progress Notes * Audrey Shannon RN - 06/09/2018 9:30 AM EST Comprehensive Breast Program Note Quin Santana is a 52 y.o. female with left breast cancer. I met with the patient and her friend bekah. 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 She is off until next week. SPECIFIC TEACHIN. Breast Cancer Treatment Handbook (Tierney Garcia, 2012) was sent via mail. 2. Information from our Shared Decision-Marking Program on Ductal Carcinoma in Situ previously provided. 3. She understands she will meet with a medical oncologist and radiation oncologist (prefers [facility]) after surgery. 4. Contact phone number for questions or concerns in the immediate post- operative period. 5. Comprehensive Breast Program Binder provided. 6. Post Breast Surgery Exercises handout created by physical therapists at [facility], which she may begin after partial mastectomy and continue until she is back to her baseline. 7. Breast Cancer Treatment Process care map (DCIS) provided and reviewed. 8. Things to Consider...What I Wish I Knew advice from breast cancer patients handout provided. 9. Contact information for the General Surgery Clinic Nurses was given and the Doctor numerical control drill press operator system explained. 10. We discussed the recommended 150 minutes of aerobic exercise and two strength training sessionsper week after a breast cancer diagnosis. She verbalized understanding of the plan of care and states all her questions were answered. Fifteen minutes was spent in education and providing support. Quin has our contact information. She will schedule surgery on way out (in 4L) today. Pre-op MRI: Yes Abnormalities detected No (other than index lesion) Referral to familial counseling: No * Frances Zee MD - 06/09/2018 9:30 AM EST Surgical Oncology New Visit Note Reason for Visit: Quin Santana is a 52 y.o. female was referred by Avis Honeycutt for evaluation of left breast DCIS. HPI:Quin Santana is a 52F who had an abnormal finding on screening mammogram on 04/07/18. Diagnostic imaging confirmed concerning in left breast. She underwent second opinion here at [facility] and left breast lesion was biopsied which confirmed DCIS, ER+RI+. She is here today to discuss next steps in management and review breast MRI. Quin does occasionally do self breast exams. She had bilateral breast reduction many years ago. Prior to breast biopsy, she denies any pain in either breast, no skin changes, no breast or axillary lumps, no nipple discharge. The patient is perimenopausal and has sporadic periods. She did not take hormonal therapy. She did not have children. She does not have a history of previous breast biopsy prior to this diagnosis and believes the breast tissue removed during reduction surgery was benign.Negative family history of breast cancer. Overall she feels quite well. Weight is stable and appetite is good. Denies fatigue. No headaches. No chest pain or SOB. No abd pain or blood in the stool. She recently had knee surgery this past November so has decreased her exercise. She enjoys swimming in the pool. Active Ambulatory Problems Diagnosis Date Noted ??? No Active Ambulatory Problems Resolved Ambulatory Problems Diagnosis Date Noted ??? No Resolved Ambulatory Problems Past Medical History: Diagnosis Date ??? Anxiety ??? Asthma ??? Environmental allergies ??? GERD (gastroesophageal reflux disease) ??? HTN (hypertension) ??? Hypercholesteremia Past Surgical History: Procedure Laterality Date ??? BREAST REDUCTION SURGERY Bilateral 1995 ??? KNEE SURGERY Bilateral ??? MAMMO STEREOTACTIC BIOPSY LEFT N/A 05/10/2018 Mammo Stereotactic Biopsy Left 05/10/2018 Jinny Gutierrez MD [facility] RAD MAMMOGRAPHY Current Outpatient Medications: ??? ALPRAZolam (XANAX) 0.5 mg Tablet, Take [...] by mouth daily., Disp: ,Rfl: 0 ??? NARCAN 4 mg/actuation [place], Non-Aerosol, 4 mg by Nasal route as needed., Disp: , Rfl: 0 ??? calcium-vitamin D3 600 mg(1,500mg) -200 [...] Wheezing. Use with spacer, Disp: , Rfl: DRUG ALLERGIES: Allergies as of 06/09/2018 - Review Complete 06/09/2018 Allergen Reaction Noted ??? Penicillins 05/24/2018 SOCIAL HISTORY: Social History Socioeconomic History ??? Marital status: Single Spouse name: Not on file ??? Number of children: Not on file ??? Years of education: Not on file ??? Highest education level: Not on file Social Needs ??? Financial resource strain: Not on file ??? Food insecurity - worry: Not on file ??? Food insecurity - inability: Not on file ??? Transportation needs - medical: Not on file ??? Transportation needs - non-medical: Not on file Occupational History ??? Not on file Tobacco Use ??? Smoking status: Never Smoker ??? Smokeless tobacco: Never Used Substance and Sexual Activity ??? Alcohol use: Not on file ??? Drug use: Not on file ??? Sexual activity: Not on file Other Topics Concern ??? Not on file Social History Narrative ??? 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 Family History Problem Relation Age of Onset ??? Prostate Cancer Father ??? Breast Cancer Neg Hx ??? Ovarian Cancer Neg Hx REVIEW OF SYSTEMS: A 12 point complete review of systems was obtained from the patient and confirmed by me. It was negative except for what was stated in the HPI . She otherwise denies heart disease,lung disease, diabetes, and infectious diseases. PHYSICAL EXAMINATION: Constitutional: This is a 52 y.o. female in no apparent distress BP 124/69 Pulse 93 Temp 36.9 ??C (98.4 ??F) (Temporal) Resp 18 Ht 158 cm (5' 2.21) Wt 126.6 kg (279 lb) SpO2 97% BMI 50.69 kg/m?? Body mass index is 50.69 kg/m??. Eyes: anicteric, extra ocular movements are intact Neuro: No focal deficits. Hearing and speech intact Psych: the patient is alert and oriented. Normal affect. Breast Exam: Surgical scars noted on bilateral breasts, reduction scars. Right breast with dense tissue, no masses, nipple or skin changes changes or axillary nodes. Left breast with biopsy site in upper outer breast. No dominant mass. No nipple or skin changes or axillary nodes. Heart: Regular rate and rhythm.. No peripheral edema Lungs: Clear bilaterally with good air intake Nodes: No palpable lymph nodes in the groin or neck. Abdomen: Soft, non-tender, non-distended. Musculoskeletal: The patient has normal gait, range of motion, and muscle strength Skin: warm, dry, good turgor, non-icteric. DATA REVIEWED: 1) Imaging reviewed by me with the radiologist: Screening /Diagnostic mammo/US DATES: 04/07/2018 screening mammogram, 04/20/2018 bilateral diagnostic mammogram, 04/20/2018 bilateral ultrasound ?? FINDINGS: Bilateral screening mammogram: CC and MLO views were obtained of each breast. 2-D and 3- D tomosynthesis images were obtained. Computer aided detection was used. There are scattered areas of fibroglandular density. There are unreported but suspicious fine pleomorphic calcifications in a linear distribution in the left upper outer quadrant 2:00 radian middle third 6 cm from the nipple. The right breast is unremarkable. Specifically, compression and obliquity differences account for the areas of nodularity identified at the screening study. ?? Bilateral diagnostic mammogram: Spot compression views of the left and right breast were performed. 2-D direct digital capture, 3-D tomosynthesis and computer aided detection (CAD) were used.. No suspicious underlying lesion is seen in the areas of nodularity. ?? Bilateral breast ultrasound: Please note: Breast ultrasound is cement conveyor operator dependent. Complete assessment of the breast tissue is not possible through static images or cine loops. Because breast ultrasound is a dynamic process the interpretive value of outside images is limited. Static images fail to depict any suspicious solid masses or areas of abnormal acoustical shadowing in either the right or the left breast. ?? IMPRESSION Suspicious un reported microcalcifications left upper outer quadrant 2:00 radian middle third 6 cm from the nipple ?? Left breast BI-RADS Category 0: Incomplete-Need Additional Imaging Evaluation and/or Prior Mammograms for Comparison ?? Right breast BI-RADS Category 2: Benign Findings MRI: 05/27/18 FINDINGS: ?? LEFT breast: Lesion 1: The left breast demonstrate a 2.1 cm x 0.8 cm x 0.8 cm area of nonmass-like enhancement in the upper outer quadrant of the Left breast, at 0200 radian, 5 cm from the nipple; this nonmass-like enhancement demonstrates persistent enhancement kinetics and containa susceptibility artifact from the biopsy clip, located within the most lateral aspect of the mass. No additional lesions in Left breast. ? RIGHT breast: There are no morphologic abnormalities or areas of abnormal parenchymal enhancement. ?? There is no axillary or internal mammary lymphadenopathy on either side. No chest wall or skin involvement. ?? IMPRESSION 1. LEFT breast lesion 1, biopsy proven DCIS at 02:00 radian, 5.5 cm from the nipple. No additional lesions in Left Breast. 2. No MRI evidence of malignancy in the RIGHT breast. LEFT breast: BI-RADS Category 6: Known Biopsy-Proven Malignancy RIGHT breast: BI-RADS Category 1: Negative 2) Pathology Needle biopsies: ?Left breast Diagnosis: ?Ductal carcinoma in-situ, intermediate nuclear grade, ??micropapillary, clinging, and solid patterns with necrosis Microcalcifications: ??Associated with ductal carcinoma in-situ ER immunoreactivity: Positive ( ??>90% cancer cells with immunostaining) Stain intensity: Strong RI immunoreactivity: Positive (90% cancer cells with immunostaining) Stain intensity: Strong ? Impression: Quin Santana is a 52 y.o. female with PMH significant for HTN, anxiety who had screening mammogram detected new pleomorphic calcifications in the left breast biopsy proven DCIS, ER+RI+. We discussed the treatment options of her cancer which include partial mastectomy with radiation versus mastectomy. We discussed the differences and local recurrence as well as the postoperative recovery. The patient is interested in breast conservation. We discussed the possibility of close or posi tive margins about 20% of patients which would require a return trip to the OR for re-excision. Thepatient and her friend had multiple questions which were answered to their satisfaction. The patient would like to proceed with plan as follows: Plan: 1) left breast partial mastectomy with needle loc. I explained the implications, indications and alternatives to the proposed treatment plan as well as the risks, including infection, bleeding/hematoma, need for additional surgery.Consent form has been signed. Same day surgery, out patient. 2) Postop consultation with medical oncology and radiation oncology Frances Zee MD Surgical Oncology documented in this encounter Plan of Treatment Upcoming Encounters Date Type Department Care Team (Late st Contact Info) Description 05/30/2024 10:00 AM EST Appointment Mammography/[place] [address] Alicia Quinteros MD [facility] [place] [address] 08/11/2024 4:15 PM EST Office Visit Dermatology at [address] [place] [phone] Jhon Giron MD [address] [place] [address] RD, [place] [address] 11/21/2024 2:00 PM EDT Office Visit Radiation Oncology at [address] [phone] Alicia Quinteros MD [facility] [place] [address] 10/06/2029 Hospital Encounter [place] [phone] Al Mendez MD [facility] [place] [address] Scheduled Procedures Name Priority Associated Diagnoses Date/Ti me @TOTAL KNEE REVISION ARTHROP LASTY, COMPLETE (WRVU 27.11) Instability Right TKA MODIFIER,GMK REVISION KNEE,MEDACTA Instability Right TKA documented as of this encounter Visit Diagnoses Diagnosis Ductal carcinoma in situ (DCIS) of left breast documented in this encounter Care Teams Electronic Typesetting Machine Operator Relationship Specialty Start Date End Date Avis Honeycutt APRN [address] [place] [address] PCP - General Family Medicine 05/27/18 12/17/20 documented as of this encounter
--- OUTSIDE RECORDS SUMMARY | 2024-04-14 10:39 | XMS_ITS | Encounter Summary ---
Author Organization [facility] [place] [address] Care Team Providers Care Hvac Installer Name Role Phone Avis Honeycutt APRN Primary Care Provider [phone] Reason for Visit * Auth/Cert Specialty Diagnoses / Procedures Referred By Agus govea Referred To Contact Diagnoses LEFT BREAST CANCER Procedures PRO MASTECTOMY, PARTIAL MASTECTOMY PARTIAL (WRVU 10.13) MODIFIER WITH NEEDLE LOC., LESION #1 Referral ID Status Reason Start Date Expiration Date Visits Re quested Visits Authorized [id number] 1 1 Encounter Details Date Type Department Care Team (Late st Contact Info) Description 06/24/2018 8:00 AM EST Hospital [place] [address] Frances Zee MD [facility] [place] [address] Malignant neoplasm of left female breast, unspecified estrogen receptor status, unspecified site of breast Discharge Disposition: Home Social History Tobacco Use [...] daily. 0 04/08/2018 01/15/2022 NARCAN 4 mg/actuation [place], Non-Aerosol 4 mg by Nasal route as needed. 0 11/30/2017 07/12/2018 fish oil-omega-3 fatty acids 500 mg Capsule Take 120 mg by mouth. 02/06/2021 documented as of this encounter Plan of Treatment Upcoming Encounters Date Type Department Care Team (Late st Contact Info) Description 05/30/2024 10:00 AM EST Appointment Mammography/[place] [address] Alicia Quinteros MD [facility] [place] [address] 08/11/2024 4:15 PM EST Office Visit Dermatology at [place] [address] [place] [address] Jhon Giron MD [address], [place] [address] 11/21/2024 2:00 PM EDT Office Visit Radiation Oncology at [address] [phone] Alicia Quinteros MD [facility] [place] [address] 10/06/2029 Hospital Encounter [place] [address] Al Mendez MD [facility] [place] [address] Scheduled Procedures Name Priority Associated Diagnoses Date/Ti me @TOTAL KNEE REVISION ARTHROP LASTY, COMPLETE (WRVU 27.11) Instability Right TKA MODIFIER,GMK REVISION KNEE,MEDACTA Instability Right TKA documented as of this encounter Procedures Procedure Name Priority Date/Time Associated Diagnosis Comments MAMMO SPECIMEN LEFT Routine 06/24/2018 1 0:57 AM EST Malignant neoplasm of left female breast, unspecified estrogen receptor status, unspecified site of breast documented in this encounter Results * Mammo Specimen Left [...] breast documented in this encounter Care Teams Hvac Installer Relationship Specialty Start Date End Date Avis Honeycutt, DISTRICT ASSOCIATE JUDGE [address] [place] [address] PCP - General Family Medicine 05/27/18 12/17/20 documented as of this encounter
--- OUTSIDE RECORDS SUMMARY | 2024-04-14 10:39 | XMS_ITS | Encounter Summary ---
Author Organization [facility] [place] [address] Care Team Providers Care Bridge Rigger Name Role Phone Avis Honeycutt LEVON Primary Care Provider [phone] Encounter Details Date Type Department Care Team (Late st Contact Info) Description 09/20/2018 Notes Only Radiation Oncology at [address] [phone] Alicia Quinteros MD [facility] [place] [address] Social History Tobacco Use Types Packs/Day Years [...] Progress Notes * Alicia Quinteros MD - 09/20/2018 11:59 PM EDT Quin Santana has completed xrt for breast ca, L, DCIS, gr 2, ER+MI+, 3.2 cm, +necrosis, s/p lumpectomy. The course of xrt is summarized as follows: Treatment was given from 3/18/19 to 09/20/18. 42.56 Gy in 16 fxs was given to L breast, followed by volume reduction & 10 Gy/4 fxs to lumpectomy bed, boosting lumpectomy bed to 52.56 Gy/20 fxs. 6 & 10 MV Xray external beam with free breathing 3D xrt used throughout treatment. The course of xrt was tolerated well, w/the expected side effect of skin reaction within irradiatedarea managed w/sarah's cream, silvadene, mepilex-lite & saline soaks. Exam near completion of xrt showed 5 x 2 cm moist desquamation beneath L axillary fold & minimal erythema w/in rest of irradiated area. 07/27/18 Dx'ic Rad Interp CTsim: Two sub 5 mm pulmonary nodules, more likely benign intrapulmonary lymph nodes rather than mets; noncontrast CT in 3 mos rec'd. 1 cm hypodense lesion R thyroid lobe; USrec'd. Mild coronary artery atherosclerotic calcs. ?? 09/03/18 thyroid US: 3 R thyroid nodules; 1 L thyroid nodule. P: Noncontrast CT chest in October. Endocrine 10/12/18 for eval thyroid. FU w/me 10/18/18. FCP 12/15/18, following which she plans to have further discussion w/Dr. Jeong about norman. documented in this encounter Plan of Treatment Upcoming Encounters Date Type Department Care Team (Late st Contact Info) Description 05/30/2024 10:00 AM EST Appointment Mammography/[place] [address] Alicia Quinteros MD [facility] [place] [address] 08/11/2024 4:15 PM EST Office Visit Dermatology at [place] [address] [place] [phone] Jhon Giron MD [address], [place] [address] 11/21/2024 2:00 PM EDT Office Visit Radiation Oncology at [address] [phone] Alicia Quinteros MD [facility] [place] [address] 10/06/2029 Hospital Encounter [place] [phone] Al Mendez MD [facility] [address] Scheduled Procedures Name Priority Associated Diagnoses Date/Ti me @TOTAL KNEE REVISION ARTHROP LASTY, COMPLETE (WRVU 27.11) Instability Right TKA MODIFIER,GMK REVISION KNEE,MEDACTA Instability Right TKA documented as of this encounter Visit Diagnoses Not on filedocumented in this encounter Care Teams Bridge Rigger Relationship Specialty Start Date End Date Avis Honeycutt, MOTOR COACH DRIVER [address] [place] [address] PCP - General Family Medicine 05/27/18 12/17/20 documented as of this encounter
--- OUTSIDE RECORDS SUMMARY | 2024-04-14 10:39 | XMS_ITS | Encounter Summary ---
[place] [address] Care Team Providers Care Corncob Pipe Manufacturing Supervisor Name Role Phone WilfredoAvis ortiz LEVON Primary Care Provider [phone] Encounter Details Date Type Department Care Team (Late st Contact Info) Description 08/25/2018 Telephone Radiation Oncology at [address] [phone] Naheed Neville RN Social History Tobacco Use Types Packs/Day [...] Miscellaneous Notes * Telephone Encounter - Naheed Neville RN - 08/25/2018 12:04 PM EDT -Voicemail left on triage nurse line letting them know thathat CTsim for xrt showed mild coronary atherosclerotic calcifications & that we are faxing Dr. Quinteros' note & CTsim report. I left our clinic contact information and requested call back should they have any questions. ---- Message from Alicia Quinteros MD sent at 08/24/2018 5:38 PM EDT ----- Judi Rad Onc Sec, thyroid US @ [facility] mahin but not urgent. CT chest @ [facility] around 10/22/18. Please fax copy of my note & imaging report on 07/27/18 CTsim to Avis Honeycutt APRN. Judi Rad Onc RN, please call office of Carisa Honeycutt APRN & inform that CTsim for xrt showed mild coronary atherosclerotic calcs & we are faxing my note & CTsim report. Alicia documented in this encounter Plan of Treatment Upcoming Encounters Date Type Department Care Team (Late st Contact Info) Description 05/30/2024 10:00 AM EST Appointment Mammography/[place] [phone] Alicia Quinteros MD [facility] [place] [address] 08/11/2024 4:15 PM EST Office Visit Dermatology at [address] [place] [phone] Jhon Giron MD [address] [place] [address], [place] [address] 11/21/2024 2:00 PM EDT Office Visit Radiation Oncology at [address] [phone] Alicia Quinteros MD [facility] [place] [address] 10/06/2029 Hospital Encounter [place] [address] Al Mendez MD [facility] [place] [address] Scheduled Procedures Name Priority Associated Diagnoses Date/Ti me @TOTAL KNEE REVISION ARTHROP LASTY, COMPLETE (WRVU 27.11) Instability Right TKA MODIFIER,GMK REVISION KNEE,MEDACTA Instability Right TKA documented as of this encounter Visit Diagnoses Not on filedocumented in this encounter Care Teams Corncob Pipe Manufacturing Supervisor Relationship Specialty Start Date End Date Avis Honeycutt, UPPER SHAPER [address] [place] [address] PCP - General Family Medicine 05/27/18 12/17/20 documented as of this encounter
--- OUTSIDE RECORDS SUMMARY | 2024-04-14 10:39 | XMS_ITS | Encounter Summary ---
Author Organization [facility] [place] [address] Care Team Providers Care Hand Shaper Name Role Phone Avis Honeycutt LEVON Primary Care Provider [phone] Reason for Referral * Consultation (Routine) - [...] CONSULT CONTINUING PRG RADIATION MANAGEMENT, 5 TREATMENTS [address] Peyton Quinteros MD [facility] [place] [address] [facility] Rad Onc Office [address] [place] [phone] Referral ID Status Reason Start Date Expiration Date V isits Requested Visits Authorized [id number] Closed Consult, Test & Treat 07/12/2018 07/12/2019 1 1 Reason for Visit * Reason Comments Radiation Consult * Consultation (Routine) - Specialty Diagnoses / Procedures Referred By Agus t Referred To Contact Radiation Oncology Diagnoses Breast cancer HAVING SURGERY 06/24 Frances Zee MD [facility] [place] [address] Peyton Quinteros MD [facility] [address] Referral ID Status Reason Start Date Expiration Date V isits Requested Visits Authorized [id number] 06/10/2018 06/10/2019 1 1 Encounter Details Date Type Department Care Team (Late st Contact Info) Description 07/12/2018 9:00 AM EST Office Visit Radiation Oncology at [address] [phone] Peyton Quinteros MD [facility] [place] [address] Malignant neoplasm of upper-outer quadrant [...] Sign Reading Time Taken Comments Blood Pressure 141/84 07/12/2018 8:59 AM EST Pulse 84 07/12/2018 8:59 AM EST Temperature 37 ??C (98.6 ??F) 07/12/2018 8:59 AM EST Respiratory Rate 18 07/12/2018 8:59 AM EST Oxygen Saturation 97% 07/12/2018 8:59 AM EST Inhaled Oxygen Concentration - - Weight 126 kg (277 lb 12.8 oz) 07/12/2018 8:59 A M EST Height - - Body Mass Index 50.48 06/09/2018 9:36 AM EST documented in this encounter Progress Notes * Novosel, Naheed L, RN - 07/12/2018 9:00 AM EST RADIATION ONCOLOGY NURSING INITIAL NURSING ASSESSMENT IDENTIFICATION: Quin Santana is a 52 y.o. year-old female with newly diagnosed left breast cancer. PRESENTING SYMPTOMS/CHIEF COMPLAINT: Abnormal mammogram led to further testing and diagnosis. REVIEW OF SYSTEMS: Review of Systems Constitutional: Positive for fatigue and unexpected weight change (patient reports just a few pounds). Negative for appetite change. Respiratory: Negative for shortness of breath. Cardiovascular: Negative for chest pain. Gastrointestinal: Negative for nausea and vomiting. Skin: Positive for wound (s/p partial mastectomy). Psychiatric/Behavioral: The patient is nervous/anxious (adequately managed worries and fears regarding treatment options). IN THE PAST 12 MONTHS HAVE YOU: Fallen more than one time? No Injured yourself as result of the fall? n/a Experienced difficulty with walking/problems with balance? Yes, walking different since knee surgeries, most recent last summer. Do you use any assistive devices? Occasionally a cane following her knee surgery last summer. Any history of collagen vascular diseases:no Any Implanted Devices/Hardware: bilateral knees If yes please put alert in ARIA patient summary Prior Radiotherapy: No Prior Chemotherapy: No Prior Hormone Therapy: No LEARNING ASSESSMENT REVIEWED: yes ADVANCED DIRECTIVE: no PAIN ASSESSMENT: out of 10 *eD-H Adult PCS Flow Sheet if 4 or above SOCIAL ASSESSMENT: See ED social assessment information entered. Support Systems: Here today with friend Ritu. Says that she has a close support network of friends. Barriers to treatment: none Referrals/Interventions: AIRWAY CONTROLLER per routine RADIATION SPECIFIC TEACHING: [facility] Radiation Therapy and You Site specific teaching : Site specific teaching to be done by nursing on day of simulation. Other: PLAN: Per Dr. Quinteros * Peyton Quinteros MD - 07/12/2018 9:00 AM EST Images from the original note were not included. CC: Referred by Carisa Honeycutt APRN, for eval for xrt for breast ca. HPI: 52 y/o f who presented w/L breast abnlty on screening mmg. Interp 04/07/18 B screening mmg, 04/20/18 B dx'ic mmgs, 04/20/18 B breast US: Suspicious pleomorphic calcs in linear distribution L breast @ 2:00, middle third, 6 cm from nipple. R breast nl. 05/10/18 core needle bxs microcalcs @ 2:00 in L breast, 5.7 cm from nipple. Path: DCIS, ER+SC+. 05/27/18 MRI B breasts: Bx proven DCIS from 2.1 x 0.8 x 0.8 cm area of nonmass- like enhancement in L breast @ 2:00, 5.5 cm from nipple. R breast nl. No adenopathy. 06/09/[address] Zee showed no breast mass/adenopathy. 06/24/18 NLOC L breast lumpectomy. Specimen mmg. Path: DCIS, 32 mm, gr 2, + necrosis, RM neg, closest RM > 2 mm, pTis. 07/07/18 postop check w/Dr. Zee. ROS: Healing well. No pain. No hand/arm swelling. ROM arms around shoulders pretty good. Energy level fair; increasing w/time from surgery. Accompanied by friend. Past Medical History: Diagnosis Date ??? Anxiety ??? Asthma ??? Environmental allergies ??? GERD (gastroesophageal reflux disease) ??? HTN (hypertension) ??? Hypercholesteremia No collagen vasc dz. No prior xrt. Past Surgical History: Procedure Laterality Date ??? BREAST REDUCTION SURGERY Bilateral 1995 ??? KNEE SURGERY Bilateral ??? MAMMO STEREOTACTIC BIOPSY LEFT N/A 05/10/2018 Mammo Stereotactic Biopsy Left 05/10/2018 Jinny Gutierrez MD [facility] RAD MAMMOGRAPHY ??? PRO MASTECTOMY, PARTIAL Left 06/24/2018 MASTECTOMY PARTIAL (WRVU 10.13) performed by Frances Zee MD at [facility] MAIN OR Your Medications Accurate as of 07/12/18 9:22 AM. If you have any questions, ask [...] by mouth daily. 20 mg Refills: 0 STOPPED Medications NARCAN 4 mg/actuation [place] Generic drug: naloxone Stopped by: PEYTON QUINTEROS MD FHx: Neg for breast/ovarian ca. + for prostate ca in father, who has been tx'd twice for it & is now BIMAL. 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 Physical Exam Constitutional: She is oriented to person, place, and time. She appears well- developed and well-nourished. No distress. BP 141/84 (Patient Position: Sitting) Pulse 84 Temp 37 ??C (98.6 ??F) (Oral) Resp 18 Wt 126kg (277 lb 12.8 oz) SpO2 97% BMI 50.48 kg/m?? HENT: Head: Normocephalic and atraumatic. Eyes: Conjunctivae and EOM are normal. Right eye exhibits no discharge. Left eye exhibits no discharge. No scleral icterus. Neck: Normal range of motion. Neck supple. No tracheal deviation present. No thyromegaly present. Pulmonary/Chest: Effort normal and breath sounds normal. No stridor. No respiratory distress. She has no wheezes. She has no rales. She exhibits no tenderness. Right breast exhibits no inverted nipple, no mass, no nipple discharge, no skin change and no tenderness. Left breast exhibits no inverted n ipple, no mass, no nipple discharge, no skin change and no tenderness. Abdominal: Soft. She exhibits no distension and [...] is normal. Judgment and thought contentnormal. A: Breast ca, L, DCIS, gr 2, ER+SC+, 3.2 cm, + necrosis, s/p lumpectomy, pTis cN0, stage 0. P: Xrt to L breast rec'd to decrease risk of ca recurrence. Xrt would be given in 20 fxs. Possible side effects of xrt to breast discussed, w/acute/immediate side effects including: Pinkening, soreness & peeling of skin in treated area; swelling of treated breast; soreness of treated breast; cough; shortness of breath; tiredness. Late/rat exterminator side effects to breast discussed include: Treated breast may shrink, become firmer & sit higher on chest; achiness/stiffness of chest wall on treated side; slight increase in smallrisk of dying of heart disease (from 1.9% to 2.4%) in women irradiated to L breast/chest; rib fracture on treated side; CT after xrt may show scarring w/in small volume of lung on treated side; very small risk of radiotherapy associated 2nd malignancy. Need for CTsim prior to xrt discussed. At CTsim she would be assessed for use of deep inspiration breath hold (DIBH) to decrease xrt dose to heart. She would like to proceed w/xrt & will return for CTsim 07/27/18. 07/22/[address] Jeong for hormonal tx. 25 mins of 40 min face to face visit w/Quin spent discussing rationale for xrt; hoped for benefit of xrt; possible side effects/complications of xrt; prevention/management of side effects/complications of xrt; logistics of daily xrt; CTsimulation w/eval for DIBH; arm position required for xrt; followup after completion of xrt. Radiation miranda:Peruvian protocol and Whole breast w/ tangents Radiation boost:Yes Total dose of radiation: 52.56 Gy documented in this encounter Plan of Treatment Upcoming Encounters Date Type Department Care Team (Late st Contact Info) Description 05/30/2024 10:00 AM EST Appointment Mammography/[place] [address] Peyton Quinteros MD [facility] [place] [address] 08/11/2024 4:15 PM EST Office Visit Dermatology at [place] [address] [place] [phone] Jhon Giron MD [address] [facility] [place] [place] [address] 11/21/2024 2:00 PM EDT Office Visit Radiation Oncology at [address] [address] Peyton Quinteros MD [facility] [place] [address] 10/06/2029 Hospital Encounter [place] [phone] Al Mendez MD [facility] [place] [address] Scheduled Orders Name Type Priority Associated Diagnoses Orde r Schedule Simulation for Radiation Therapy Planning Procedures Routine Malignant neoplasm of upper-outer quadrant of left female breast, unspecified estrogen receptor status Ordered: 07/12/2018 Scheduled Procedures Name Priority Associated Diagnoses Date/Ti me @TOTAL KNEE REVISION ARTHROP LASTY, COMPLETE (WRVU 27.11) Instability Right TKA MODIFIER,GMK REVISION KNEE,MEDACTA Instability Right TKA documented as of this encounter Visit Diagnoses Diagnosis Malignant neoplasm of upper-outer quadrant of left female breast, unspecified estrogen receptor status documented in this encounter Care Teams Hand Shaper Relationship Specialty Start Date End Date Avis Honeycutt APRN [address] [place] [address] PCP - General Family Medicine 05/27/18 12/17/20 documented as of this encounter
--- OUTSIDE RECORDS SUMMARY | 2024-04-14 10:39 | XMS_ITS | Encounter Summary ---
Author Organization [facility] [place] [address] Care Team Providers Care Supervisor Alum Plant Name Role Phone Avis Honeycutt ADULT PSYCHIATRIST Primary Care Provider [phone] Reason for Visit * Reason Comments On Treatment Visit Encounter Details Date Type Department Care Team (Late st Contact Info) Description 09/14/2018 2:30 PM EDT Office Visit Radiation Oncology at [address] [phone] Alicia Quinteros MD [facility] [place] [address] Malignant neoplasm of upper-outer quadrant of left [...] Sign Reading Time Taken Comments Blood Pressure 126/66 09/14/2018 4:00 PM EDT Pulse 81 09/14/2018 4:00 PM EDT Temperature 36.8 ??C (98.2 ??F) 09/14/2018 4:00 PM ED T Respiratory Rate 16 09/14/2018 4:00 PM EDT Oxygen Saturation 98% 09/14/2018 4:00 PM EDT Inhaled Oxygen Concentration - - Weight 129.2 kg (284 lb 12.8 oz) 09/14/2018 4:00 PM EDT Height - - Body Mass Index 53.81 08/24/2018 3:41 PM EDT documented in this encounter Patient Instructions * Patient Instructions* Alicia Quinteros MD - 09/14/2018 2:30 PM EDT Your last radiotherapy will be on M., 09/20/18. Please continue the silvadene to the open area until there is new skin & then resume/continue griffin's cream to the area. Continue griffin's cream to the rest of the irradiated area. Please do not use a straight/regular razor on your left underarm. An electric razor is ok. Please do not expose the irradiated area to sun. Please do not expose irradiated area to chlorinated water. Saltwater or freshwater is ok. Please do not expose irradiated area to hot tub water. Hot bath/shower ok. We will mail you a letter with an appointment for followup with me in 2 months. Ask @ front office help about Endocrinology appointment. You may resume fish oil omega 3 fatty acid day after last radiotherapy. documented in this encounter Progress Notes * Alicia Quinteros MD - 09/14/2018 2:30 PM EDT Images from the original note were not included. DIAGNOSIS: Breast ca, L, DCIS, gr 2, ER+PA+, 3.2 cm, +necrosis, s/p lumpectomy, pTis cN0. CURRENT TREATMENT DOSE: 42.56 Gy L breast ANTICIPATED TOTAL DOSE: 42.56 Gy L breast, 52.56 Gy lumpectomy bed L breast Current # of xrt received: 16 L breast Anticipated total # of xrt txs: 16 L breast, 20 lumpectomy bed Evaluation of port verification films: Approved. For details, see electronic film record in [employer]. Changes in Medical Condition: Oozing area in L axilla has healed significantly over past wk. Pain?: Mild tenderness in L axilla. Your Medications Accurate as of 09/14/18 4:07 PM. If you have any questions, ask [...] Quantity: 50 g Refills: 0 Physical Exam: BP 126/66 (Patient Position: Sitting) Pulse 81 Temp 36.8 ??C (98.2 ??F) (Oral) Resp 16 Wt 129.2 kg (284 lb 12.8 oz) SpO2 98% BMI 53.81 kg/m?? A&Ox3, NAD. 5 x 2 cm moistdesquamation beneath fold in L axilla. Minimal erythema [...] Symptoms: Skin rxn. Treatment for Symptom Control: Mepilex-lite, saline soaks, continue silvadene to area of moist desquamation. Continue Griffin's cream to rest of L breast. Pain Management: Not needed. Recommendation on Continuing Course of xrt: Discussed the 2 sub 5 mm nodules seen on CTsim & rec'd noncontrast CT chest in 3 mos; she agreed. Discussed thyroid US result & rec'd referral to Endocrinology @ [facility] & she agreed; referral in process. Informed her & PCP of coronary artery atherosclerotic calcs. Completes xrt 09/20/18. Care of irrad'd skin discussed. Can resume fish oil tatte-2-hvwiy acid day after last xrt. Rtc 2 mos. FCP 12/15/18 & then she plans to have further discussion w/Dr. Jeong about norman. documented in this encounter Plan of Treatment Upcoming Encounters Date Type Department Care Team (Late st Contact Info) Description 05/30/2024 10:00 AM EST Appointment Mammography/[place] [address] Alicia Quinteros MD [facility] [place] [address] 08/11/2024 4:15 PM EST Office Visit Dermatology at [place] [address] [place] [phone] Jhon Giron MD [address] [place] [address] 11/21/2024 2:00 PM EDT Office Visit Radiation Oncology at [address] [phone] Alicia Quinteros MD [facility] [place] [address] 10/06/2029 Hospital Encounter [place] [address] Al Mendez MD [facility] [place] [address] Scheduled Procedures Name Priority Associated Diagnoses Date/Ti me @TOTAL KNEE REVISION ARTHROP LASTY, COMPLETE (WRVU 27.11) Instability Right TKA MODIFIER,GMK REVISION KNEE,MEDACTA Instability Right TKA documented as of this encounter Visit Diagnoses Diagnosis Malignant neoplasm of upper-outer quadrant of left female breast, unspecified estrogen receptor status documented in this encounter Care Teams Supervisor Alum Plant Relationship Specialty Start Date End Date Avis Honeycutt, LEVON [address] [place] [address] PCP - General Family Medicine 05/27/18 12/17/20 documented as of this encounter
--- OUTSIDE RECORDS SUMMARY | 2024-04-14 10:39 | XMS_ITS | Encounter Summary ---
Author Organization [facility] [place] [address] Care Team Providers Care Tin Container Straightener Name Role Phone Avis Honeycutt LEVON Primary Care Provider [phone] Encounter Details Date Type Department Care Team (Late st Contact Info) Description 06/17/2018 Orders Only Hematology [place] [phone] Dana Butler APRN [facility] [address] HEMATOLOGY [place] [address] Research subject (Primary Dx) Social History Tobacco Use Types [...] 05/30/2024 10:00 AM EST Appointment Mammography/[place] [phone] Alicia Quinteros MD [facility] [place] [address] 08/11/2024 4:15 PM EST Office Visit Dermatology at [place] [address] [place] [phone] Jhon Giron MD [address] [place] [address] 11/21/2024 2:00 PM EDT Office Visit Radiation Oncology at [address] [phone] Alicia Quinteros MD [facility] [place] [address] 10/06/2029 Hospital Encounter [place] [address] Al Mendez MD [facility] [place] [address] Scheduled Procedures Name Priority Associated Diagnoses Date/Ti me @TOTAL KNEE REVISION ARTHROP LASTY, COMPLETE (WRVU 27.11) Instability Right TKA MODIFIER,GMK REVISION KNEE,MEDACTA Instability Right TKA documented as of this encounter Visit Diagnoses Diagnosis Research subject- Primary Reserved for inherently not codable concepts WITHOUT codable children documented in this encounter Care Teams Tin Container Straightener Relationship Specialty Start Date End Date Avis Honeycutt, LEVON [address] [place] [address] PCP - General Family Medicine 05/27/18 12/17/20 documented as of this encounter
--- OUTSIDE RECORDS SUMMARY | 2024-04-14 10:39 | XMS_ITS | Encounter Summary ---
Author Organization [facility] [place] [address] Care Team Providers Care Editing Intern Name Role Phone Avis Honeycutt LEVON Primary Care Provider [phone] Encounter Details Date Type Department Care Team (Late st Contact Info) Description 07/27/2018 Notes Only Radiation Oncology at [address] [phone] Georgia Zepeda, PRODUCTION PLANNING MANAGER OFFICE OF CARE MANAGEMENT Social History Tobacco [...] this encounter Progress Notes * Georgia Zepeda, PRODUCTION PLANNING MANAGER - 07/27/2018 10:00 AM EST Brief contact with pt post sim. She declined PRODUCTION PLANNING MANAGER visit today as she has to return to work [employer]. Gave pt PRODUCTION PLANNING MANAGER contact information and will plan to visit on new . Pt reports she has a lot of support from family and friends. Will follow up with pt . documented in this encounter Plan of Treatment Upcoming Encounters Date Type Department Care Team (Late st Contact Info) Description 05/30/2024 10:00 AM EST Appointment Mammography/[place] [address] Alicia Quinteros MD [facility] [place] [address] 08/11/2024 4:15 PM EST Office Visit Dermatology at [place] [address] [place] [phone] Jhon Giron MD [address] [place] [address] RD, [place] [address] 11/21/2024 2:00 PM EDT Office Visit Radiation Oncology at [address] [phone] Alicia Quinteros MD [facility] [place] [address] 10/06/2029 Hospital Encounter [place] [address] Al Mendez MD [facility] [place] [address] Scheduled Procedures Name Priority Associated Diagnoses Date/Ti me @TOTAL KNEE REVISION ARTHROP LASTY, COMPLETE (WRVU 27.11) Instability Right TKA MODIFIER,GMK REVISION KNEE,MEDACTA Instability Right TKA documented as of this encounter Visit Diagnoses Not on filedocumented in this encounter Care Teams Editing Intern Relationship Specialty Start Date End Date Avis Honeycutt APRN [address] [place] [address] PCP - General Family Medicine 05/27/18 12/17/20 documented as of this encounter
--- OUTSIDE RECORDS SUMMARY | 2024-04-14 10:39 | XMS_ITS | Encounter Summary ---
[place] [address] Care Team Providers Care Director Maternal Child Name Role Phone WilfredoAvis ortiz LEVON Primary Care Provider [phone] Encounter Details Date Type Department Care Team (Late st Contact Info) Description 08/24/2018 Telephone H[place]ology [place] [phone] Jania Szymanski Social History Tobacco Use Types Packs/Day Years [...] encounter Miscellaneous Notes * Telephone Encounter - Jania Szymanski - 08/24/2018 8:40 AM EDT Age at diagnosis: 52 Date of diagnosis: May 12, 2018 Place of diagnosis: Internal Date of initial appointment: 06/09/18 Surgeon: Saadia Referral to Medical Oncology: Yes, Internal Medical Oncologist:Adenike Referral to Radiation Oncology:Yes Internal Radiation Oncologist: Neli Referral to Plastic Surgery: No documented in this encounter Plan of Treatment Upcoming Encounters Date Type Department Care Team (Late st Contact Info) Description 05/30/2024 10:00 AM EST Appointment Mammography/[place] [address] Alicia Quinteros MD [facility] [place] [address] 08/11/2024 4:15 PM EST Office Visit Dermatology at [place] [address] [place] [address] Jhon Giron MD [address] [place] [address] 11/21/2024 2:00 PM EDT Office Visit Radiation Oncology at [address] [phone] Alicia Quinteros MD [facility] [place] [address] 10/06/2029 Hospital Encounter [place] [address] Al Mendez MD [facility] [place] [address] Scheduled Procedures Name Priority Associated Diagnoses Date/Ti me @TOTAL KNEE REVISION ARTHROP LASTY, COMPLETE (WRVU 27.11) Instability Right TKA MODIFIER,GMK REVISION KNEE,MEDACTA Instability Right TKA documented as of this encounter Visit Diagnoses Not on filedocumented in this encounter Care Teams Director Maternal Child Relationship Specialty Start Date End Date Avis Honeycutt APRN [address] [place] [address] PCP - General Family Medicine 05/27/18 12/17/20 documented as of this encounter
--- OUTSIDE RECORDS SUMMARY | 2024-04-14 10:39 | XMS_ITS | Encounter Summary ---
Author Organization [facility] [place] [address] Care Team Providers Care Newborn Hearing Screener Name Role Phone Avis Honeycutt APRN Primary Care Provider [phone] Reason for Visit * Auth/Cert Specialty Diagnoses / Procedures Referred By Agus govea Referred To Contact Diagnoses LEFT BREAST CANCER Procedures PRO MASTECTOMY, PARTIAL MASTECTOMY PARTIAL (WRVU 10.13) MODIFIER WITH NEEDLE LOC., LESION #1 Referral ID Status Reason Start Date Expiration Date Visits Re quested Visits Authorized [id number] 1 1 Encounter Details Date Type Department Care Team (Late st Contact Info) Description 06/24/2018 8:00 AM EST Hospital En[place] [address] Frances Zee MD [facility] [place] [place] [address] Malignant neoplasm of left female breast, unspecified [...] daily. 0 04/08/2018 01/15/2022 NARCAN 4 mg/actuation [place], Non-Aerosol 4 mg by Nasal route as needed. 0 11/30/2017 07/12/2018 fish oil-omega-3 fatty acids 500 mg Capsule Take 120 mg by mouth. 02/06/2021 documented as of this encounter H&P Notes * Sherrie Bingham DO - 06/23/2018 5:09 PM EST Pre-procedure note for needle breast biopsies performed in radiology. Procedure date: Today Procedure type: left breast NLOC Allergies: Penicillins Medications: Current Outpatient Medications: ??? ALPRAZolam (XANAX) 0.5 [...] Disp: ,Rfl: 0 ??? NARCAN 4 mg/actuation [place], Non-Aerosol, 4 mg by Nasal route as [...] Wheezing. Use with spacer, Disp: , Rfl: Anticoagulation status: none stopped on: N/A Imaging reviewed and procedural plan approved by Dr. Cordon. documented in this encounter Plan of Treatment Upcoming Encounters Date Type Department Care Team (Late st Contact Info) Description 05/30/2024 10:00 AM EST Appointment Mammography/[place] [address] Alicia Quinteros MD [facility] [place] [address] 08/11/2024 4:15 PM EST Office Visit Dermatology at [place] [address] [place] [phone] Jhon Giron MD [address], [place] [address] 11/21/2024 2:00 PM EDT Office Visit Radiation Oncology at [address] [phone] Alicia Quinteros MD [facility] [place] [address] 10/06/2029 Hospital Encounter [place] [address] Al Mendez MD [facility] [place] [address] Scheduled Procedures Name Priority Associated Diagnoses Date/Ti me @TOTAL KNEE REVISION ARTHROP LASTY, COMPLETE (WRVU 27.11) Instability Right TKA MODIFIER,GMK REVISION KNEE,MEDACTA Instability Right TKA documented as of this encounter Procedures Procedure Name Priority Date/Time Associated Diagnosis Comments MAMMO NEEDLE LOCALIZATION LEFT Routine 06/24/2018 8:45 AM EST Malignant neoplasm of left female breast, unspecified estrogen receptor status, unspecified site of breast documented in this encounter Results * Mammo Needle Localization Left (06/24/2018 8:45 [...] site of breast documented in this encounter Administered Medications Inactive Administered Medications - up to 3 most recent administrations Medication Order MAR Action Action Date Dose Rate Site lidocaine (XYLOCAINE) 10 mg/mL (1 %) injection 10 mg 10 mg, Intradermal, ONCE, 1 dose, On Jessica 06/24/18 at 0830, Routine Given 06/24/2018 8:50 AM EST 10 mg documented in this encounter Care Teams Newborn Hearing Screener Relationship Specialty Start Date End Date Avis Honeycutt, PATTERNMAKER APPRENTICE METAL [address] [place] [address] PCP - General Family Medicine 05/27/18 12/17/20 documented as of this encounter
--- OUTSIDE RECORDS SUMMARY | 2024-04-14 10:39 | XMS_ITS | Encounter Summary ---
Author Organization [facility] [place] [address] Care Team Providers Care Grind Operator Name Role Phone Avis Honeycutt APRN Primary Care Provider [phone] Encounter Details Date Type Department Care Team (Late Contact Info) Description 07/22/2018 Orders [place] [phone] Frances Zee MD [facility] [place] [address] Encounter for mammogram to establish baseline mammogram (Primary Dx) Social History Tobacco Use Types [...] 05/30/2024 10:00 AM EST Appointment Mammography/[place] [phone] Alicia Quinteros MD [facility] [place] [address] 08/11/2024 4:15 PM EST Office Visit Dermatology at [place] [address] [place] [phone] Jhon Giron MD [address], [place] [address] 11/21/2024 2:00 PM EDT Office Visit Radiation Oncology at [address] [phone] Alicia Quinteros MD [facility] [place] [address] 10/06/2029 Hospital Encounter [place] [address] Al Mendez MD [facility] DR ORTHOP[place] [address] Scheduled Procedures Name Priority Associated Diagnoses Date/Ti me @TOTAL KNEE REVISION ARTHROP LASTY, COMPLETE (WRVU 27.11) Instability Right TKA MODIFIER,GMK REVISION KNEE,MEDACTA Instability Right TKA documented as of this encounter Visit Diagnoses Diagnosis Encounter for mammogram to establish baseline mammogram- Primary Other screening mammogram documented in this encounter Care Teams Grind Operator Relationship Specialty Start Date End Date Avis Honeycutt, LEVON [address] [place] [address] PCP - General Family Medicine 05/27/18 12/17/20 documented as of this encounter
--- OUTSIDE RECORDS SUMMARY | 2024-04-14 10:40 | XMS_ITS | Encounter Summary ---
[place] [address] Care Team Providers Care Reed Repairer Name Role Phone Unavailable Primary Care Provider Unavailabl e Reason for Referral * Diagnostic Test (Routine) - Closed Specialty Diagnoses / Procedures Referred By Agus govea Referred To Contact Radiology Diagnoses Malignant neoplasm of left female breast, unspecified estrogen receptor status, unspecified site of breast Procedures MRI Breast wwo Contrast Frances Whitney MD [facility] [place] [address] [place] [address] Referral ID Status Reason Start Date Expiration Date V isits Requested Visits Authorized [id number] Closed Specialty Service Requested 05/25/2018 07/23/2018 2 2 Encounter Details Date Type Department Care Team (Late st Contact Info) Description 05/12/2018 Orders [place] [address] Frances Zee MD [facility] [place] [address] Malignant neoplasm of left female breast, unspecified [...] 05/30/2024 10:00 AM EST Appointment Mammography/[place] [address] Alicia Quinteros MD [facility] [place] [address] 08/11/2024 4:15 PM EST Office Visit Dermatology at [place] [address] [place] [address] Jhon Giron MD [address] [facility], [place] [address] 11/21/2024 2:00 PM EDT Office Visit Radiation Oncology at [address] [phone] Alicia Quinteros MD [facility] [place] [address] 10/06/2029 Hospital Encounter [place] [address] Al Mendez MD [facility] [place] [address] Scheduled Procedures Name Priority Associated Diagnoses Date/Ti me @TOTAL KNEE REVISION ARTHROP LASTY, COMPLETE (WRVU 27.11) Instability Right TKA MODIFIER,GMK REVISION KNEE,MEDACTA Instability Right TKA documented as of this encounter Results * MRI Breast wwo Contrast Bilat (05/27/2018 7:44 PM EST) Anatomical Region Laterality Modality Breast Bilateral Magnetic Resonan ce Impressions 05/28/2018 9:51 AM EST 1. ??LEFT breast lesion 1, biopsy proven DCIS ??at 02:00 radian, 5.5 cm from the nipple. No additional lesions in Left Breast. 2. ??No MRI evidence of malignancy in the RIGHT breast. RECOMMENDATION: LEFT breast lesion 1: Surgical management. RIGHT breast: Continued annual screening. LEFT breast: BI-RADS Category 6: Known Biopsy-Proven Malignancy RIGHT breast: BI-RADS Category 1: Negative I have personally reviewed the image(s) and the residents interpretation and agree with the findings, Conchita Rod at 05/28/2018 9:51 AM Narrative 05/28/2018 9:51 AM EST MRI OF THE BILATERAL BREAST(S) CLINICAL INDICATION: ??52-year-old female with new diagnosis of ??Left breast DCIS. TECHNIQUE: Multiplanar sequences were obtained pre- and post- gadolinium enhancement, to include SPGR weighted dynamic run-off and subtraction sequences obtained after the intravenous administration of 25 ccs of Dotarem. Computer algorithm analysis for lesion detection and kinetic contrast enhancement curve analysis was performed, using [employer] software. COMPARISON STUDIES: Stereotactic biopsy Left breast May 10, 2018. Multiple prior diagnostic mammograms with most recent comparison dated May 10, 2018. Ultrasound of the RIGHT breast performed at an outside institution on May 10, 2018. BACKGROUND ENHANCEMENT PATTERN (first post gadolinium image) None/Minimal (<25% breast) AMOUNT OF FIBROGLANDULAR TISSUE: The breasts are almost entirely fatty. FINDINGS: LEFT breast: Lesion 1: The left breast demonstrate a ??2.1 cm x 0.8 cm x 0.8 cm area of nonmass-like enhancement in the upper outer quadrant of the Left breast, at 0200 radian, 5 cm from the nipple; this nonmass-like enhancement demonstrates persistent enhancement kinetics and containa susceptibility artifact from the biopsy clip, located within the most lateral aspect of the mass. No additional lesions in Left breast. ?? RIGHT breast: There are no morphologic abnormalities or areas of abnormal parenchymal enhancement. There is no axillary or internal mammary lymphadenopathy on either side. No chest wall or skin involvement. Frances Briscoe MD [facility] MRI ORDERABL ES documented in this encounter Visit Diagnoses Diagnosis Malignant neoplasm of left female breast, unspecified estrogen receptor status, unspecified site of breast Malignant neoplasm of left female breast, unspecified estrogen receptor status, unspecified site of breast documented in this encounter
--- OUTSIDE RECORDS SUMMARY | 2024-04-14 10:40 | XMS_ITS | Encounter Summary ---
Author Organization [facility] [place] [address] Care Team Providers Care Design Engineering Manager Name Role Phone Unavailable Primary Care Provider Unavailabl e Encounter Details Date Type Department Care Team (Latest Contact Info) Description 03/22/2014 - 03/22/2014 11:59 PM EDT Hospital Encounter Radiology Library [place] [address] Avis Honeycutt APRN [address] [place], [place] [id number] Discharge Disposition: Home Social History Tobacco Use [...] 05/30/2024 10:00 AM EST Appointment Mammography/DXA at [facility] [phone] Alicia Quinteros MD [facility] [place] [address] 08/11/2024 4:15 PM EST Office Visit Dermatology at [address] [place] [address] Jhon Giron MD [address], [place] [address] 11/21/2024 2:00 PM EDT Office Visit Radiation Oncology at [address] [phone] Alicia Quinteros MD [facility] [place] [address] 10/06/2029 Hospital Encounter [place] [phone] Al Mendez MD [facility] [place] [address] Scheduled Procedures Name Priority Associated Diagnoses Date/Ti me @TOTAL KNEE REVISION ARTHROP LASTY, COMPLETE (WRVU 27.11) Instability Right TKA MODIFIER,GMK REVISION KNEE,MEDACTA Instability Right TKA documented as of this encounter Procedures Procedure Name Priority Date/Time Associated Diagnosis Comments FILM LIBRARY STORAGE ONLY MAMMO Routine 03/22/2014 12:00 AM EDT documented in this encounter Results * Film Library- Storage Only Mammo (03/22/2014 12:00 AM EDT) Narrative [facility] - 05/03/2018 3:45 PM EST This exam is for storage only and is auto-finalizing. Avis Honeycutt APRN IMG FILM LIBRARY ORD ERABLES [place], [place] documented in this encounter Visit Diagnoses Not on filedocumented in this encounter
--- OUTSIDE RECORDS SUMMARY | 2024-04-14 10:40 | XMS_ITS | Encounter Summary ---
Author Organization [facility] [place] [address] Care Team Providers Care Fire Sprinkler Service Technician Name Role Phone Unavailable Primary Care Provider Unavailabl e Encounter Details Date Type Department Care Team (Latest Contact Info) Description 04/07/2018 - 04/07/2018 11:59 PM EDT Hospital Encounter Radiology Library at [facility] [place] [address] Avis Honeycutt APRN [address] [place] [address] Discharge Disposition: Home Social History Tobacco Use Types Packs/Day Years Used Date Smoking Tobacco: Never Assessed Sex and Gender Information Value Date Recorded Sex Assigned at Female 07/24/2020 2:32 PM EST Gender Identity Not on file Sexual Orientation Straight 07/24/2020 2: 32 PM EST documented as of this encounter Medications at Time of Discharge Medication Sig Dispensed Refills Start Date End Date benazepril (LOTENSIN) 10 mg Tablet Take 20 mg by mouth daily. 0 03/07/2018 EPINEPHrine 0.3 mg/0.3 mL Auto-Injector Inject 0.3 mg into the muscle as needed. 0 03/23/2018 omeprazole (PRILOSEC) 20 mg Capsule, Delayed Release(E.C.) Take 20 mg by mouth daily. 0 03/07/2018 NARCAN 4 mg/actuation [place], Non-Aerosol 4 mg by Nasal route as needed. 0 11/30/2017 07/12/2018 documented as of this encounter Plan of Treatment Upcoming Encounters Date Type Department Care Team (Late st Contact Info) Description 05/30/2024 10:00 AM EST Appointment Mammography/[place] [address] Alicia Quinteros MD [facility] [place] [address] 08/11/2024 4:15 PM EST Office Visit Dermatology at [place] [address] [place] [phone] Jhon Giron MD [address], [place] [address] 11/21/2024 2:00 PM EDT Office Visit Radiation Oncology at [address] [phone] Alicia Quinteros MD [facility] [place] [address] 10/06/2029 Hospital Encounter [place] [phone] Al Mendez MD [facility] DR [place] [address] Scheduled Procedures Name Priority Associated Diagnoses Date/Ti me @TOTAL KNEE REVISION ARTHROP LASTY, COMPLETE (WRVU 27.11) Instability Right TKA MODIFIER,GMK REVISION KNEE,MEDACTA Instability Right TKA documented as of this encounter Procedures Procedure Name Priority Date/Time Associated Diagnosis Comments FILM LIBRARY STORAGE ONLY MAMMO Routine 04/07/2018 12:00 AM EDT documented in this encounter Results * Film Library- Storage Only Mammo (04/07/2018 12:00 AM EDT) Narrative [facility] - 05/03/2018 3:43 PM EST This exam is for storage only and is auto-finalizing. Avis Honeycutt APRN IM FILM LIBRARY ORD ERABLES [place], [place] documented in this encounter Visit Diagnoses Not on filedocumented in this encounter
--- OUTSIDE RECORDS SUMMARY | 2024-04-14 10:40 | XMS_ITS | Encounter Summary ---
[place] [address] Care Team Providers Care Engineering Lab Technician Name Role Phone TangelaAvis LEVON Primary Care Provider [phone] Reason for Referral * Diagnostic Test (Routine) - Closed Specialty Diagnoses / Procedures Referred By Contmartinez t Referred To Contact Radiology Diagnoses Malignant neoplasm of left female breast, unspecified estrogen receptor status, unspecified site of breast Procedures MRI Breast wwo Contrast Frances Whitney MD [facility] [place] [address] [place] [address] Referral ID Status Reason Start Date Expiration Date V isits Requested Visits Authorized [id number] Closed Specialty Service Requested 05/25/2018 07/23/2018 2 2 Reason for Visit * Diagnostic Test (Routine) - Closed Specialty Diagnoses / Procedures Referred By Agus govea Referred To Contact Radiology Diagnoses Malignant neoplasm of left female breast, unspecified estrogen receptor status, unspecified site of breast Procedures MRI Breast wwo Contrast Frances Whitney MD [facility] [place] [address] [place] [address] Referral ID Status Reason Start Date Expiration Date V isits Requested Visits Authorized [id number] Closed Specialty Service Requested 05/25/2018 07/23/2018 2 2 Encounter Details Date Type Department Care Team (Late st Contact Info) Description 05/27/2018 2:01 PM EST - 05/27/2018 3:19 PM EST Hospital [place] [address] Frances Zee MD [facility] [place] [address] Malignant neoplasm of left female breast, unspecified [...] daily. 0 04/08/2018 01/15/2022 NARCAN 4 mg/actuation [place], Non-Aerosol 4 mg by Nasal route as needed. 0 11/30/2017 07/12/2018 fish oil-omega-3 fatty acids 500 mg Capsule Take 120 mg by mouth. 02/06/2021 documented as of this encounter Progress Notes * Quin Chadwick RN - 05/24/2018 8:34 AM EST MRI PRE-SEDATION ASSESSMENT NOTE NAME: Quin Santnaa AGE: 52 y.o. : [address] [place] [address] Female [phone] (home) No relevant phone numbers on file. No primary care provider on file. No primary care provider on file. Allergies not on file Date/Time of call: May 24, 2018/8:35 AM/ PREVIOUS MRI SCAN? Yes SCHEDULED SCAN: MRI BREAST WWO CONTRAST BILAT [[id number]]; 60 mins, Prone SUBJECTIVE: Claustrophobic CAN YOU LAY FLAT? Yes AIRWAY ISSUES? No DO YOU HAVE ANY INVOLUNTARY MOVEMENTS? No DO YOU HAVE ANY PAIN? No DO YOU TAKE PAIN MED ON A DAILY BASIS? No ASSESSMENT: Pt appropriate for PO sedation PLAN: Valium 5-10 mg PO ordered ( [facility] ) You must have a route salesman and driver present when you check in. This patient has been informed that they require a route salesman and driver to drive them home after this procedure. In the absence of a route salesman and driver, IR will not beable to sedate for your scan. Pt verbalized understanding of these instructions during the pre-procedure education via phone. X Yes [place] of route salesman and driver: Phone number: PRIOR SCAN DATE/S: SEDATION TYPE: SUCCESSFUL: 05/27/18 MRI breast wo contrast Valium 5mg POx2 Revised 11/03/17 documented in this encounter Plan of Treatment Upcoming Encounters Date Type Department Care Team (Late st Contact Info) Description 05/30/2024 10:00 AM EST Appointment Mammography/[place] [address] Alicia Quinteros MD [facility] [place] [address] 08/11/2024 4:15 PM EST Office Visit Dermatology at [place] [address] [place] [address] Jhon Giron MD [address] [place] [address] 11/21/2024 2:00 PM EDT Office Visit Radiation Oncology at [address] [phone] Alicia Quinteros MD [facility] [place] [address] 10/06/2029 Hospital Encounter [place] [phone] Al Mendez MD [facility] [place] [address] Scheduled Procedures Name Priority Associated Diagnoses Date/Ti me @TOTAL KNEE REVISION ARTHROP LASTY, COMPLETE (WRVU 27.11) Instability Right TKA MODIFIER,GMK REVISION KNEE,MEDACTA Instability Right TKA documented as of this encounter Procedures Procedure Name Priority Date/Time Associated Diagnosis Comments MRI BREAST WWO CONTRAST BILAT Routine 05/27/2018 7:44 PM EST Malignant neoplasm of left female breast, unspecified estrogen receptor status, unspecified site of breast documented in this encounter Results * MRI Breast wwo [...] contrast enhancement curve analysis was performed, using Venaxis software. COMPARISON STUDIES: Stereotactic biopsy Left breast [...] wall or skin involvement. Frances Briscoe MD IMG MRI ORDERABL ES documented in this encounter Visit Diagnoses Diagnosis Malignant neoplasm of left female breast, unspecified estrogen receptor status, unspecified site of breast documented in this encounter Administered Medications Inactive Administered Medications - up to 3 most recent administrations Medication Order MAR Action Action Date Dose Rate Site diazePAM (VALIUM) tablet 5 mg 5 mg, Oral, EVERY 30 MIN PRN, 2 doses, Starting on Jessica 05/27/18 at 0820, Until Jessica 05/27/18 at 1515, Anxiety, Angio/IR (Day of Procedure), Routine Given 05/27/2018 3:15 PM EST 5 mg Given 05/27/2018 2:45 PM EST 5 mg documented in this encounter Care Teams Engineering Lab Technician Relationship Specialty Start Date End Date Avis Honeycutt, ADVERTISING CAMPAIGN MANAGER [address] [place] [address] PCP - General Family Medicine 05/27/18 12/17/20 documented as of this encounter
--- OUTSIDE RECORDS SUMMARY | 2024-04-14 10:40 | XMS_ITS | Encounter Summary ---
Author Organization [facility] [place] [address] Care Team Providers Care Prefabricated Houses Trimmer Name Role Phone Unavailable Primary Care Provider Unavailabl e Encounter Details Date Type Department Care Team (Latest Contact Info) Description 05/03/2018 4:25 PM EST - 05/03/2018 11:59 PM EST Hospital Encounter Radiology Library at [facility], [place] [place] [address] Avis Honeycutt APRN [address] [place] [address] Breast density Discharge Disposition: Home Social History Tobacco Use [...] 20 mg by mouth daily. 0 03/07/2018 atorvastatin (LIPITOR) 40 mg Tablet Take 40 mg by mouth daily. 0 05/02/2018 02/06/2021 hydroCHLOROthiazide (HYDRODIURIL) 50 mg Tablet Take 25 mg by mouth daily. 0 04/08/2018 01/15/2022 NARCAN 4 mg/actuation [place], Non-Aerosol 4 mg by Nasal route as needed. 0 11/30/2017 07/12/2018 documented as of this encounter Plan of Treatment Upcoming Encounters Date Type Department Care Team (Late st Contact Info) Description 05/30/2024 10:00 AM EST Appointment Mammography/[place] [phone] Alicia Quinteros MD [facility] [place] [address] 08/11/2024 4:15 PM EST Office Visit Dermatology at [address] [place] [address] Jhon Giron MD [address] [place] [address], [place] [address] 11/21/2024 2:00 PM EDT Office Visit Radiation Oncology at [address] [address] Alicia Quinteros MD [facility] [place] [address] 10/06/2029 Hospital Encounter [place] [phone] Al Mendez MD [facility] [place] [address] Scheduled Procedures Name Priority Associated Diagnoses Date/Ti me @TOTAL KNEE REVISION ARTHROP LASTY, COMPLETE (WRVU 27.11) Instability Right TKA MODIFIER,GMK REVISION KNEE,MEDACTA Instability Right TKA documented as of this encounter Procedures Procedure Name Priority Date/Time Associated Diagnosis Comments REQUEST FOR 2ND READ MAMMO Routine 05/03/2018 4:25 PM EST Breast density documented in this encounter Results * Request for 2nd read Mammo (05/03/2018 4:25 PM EST) Anatomical Region Laterality Modality SO Impressions 05/04/2018 2:45 PM EST Suspicious un reported microcalcifications left upper outer quadrant 2:00 radian middle third 6 cm from the nipple for which magnification imaging and core biopsy would be recommended. Our facility will call this patient to coordinate this follow-up. Left breast BI-RADS Category 0: Incomplete-Need Additional Imaging Evaluation and/or Prior Mammograms for Comparison Right breast BI-RADS Category 2: Benign Findings Please note: The interpretation of the [facility] Breast Imaging Radiologist subspecialist may differ from the original radiologist's interpretation. This is usually not due to a deficiency of the original interpreting radiologist, rather due to the greater skill level afforded by sub-specialization in the field and/or reasonable variations in interpretations. If you have a concern regarding the D- interpretation you may contact the [facility] Breast Regional Construction Manager Office at . Narrative 05/04/2018 2:45 PM EST INTERPRETATION OF OUTSIDE BREAST IMAGING I have been asked to consult on this patient by Avis Honeycutt APRN because he/she believes a review of this study may change or alter the care of this patient. STUDIES FROM: [facility] DATES: 04/07/2018 screening mammogram, 04/20/2018 bilateral diagnostic mammogram, 04/20/2018 bilateral ultrasound CLINICAL HISTORY: LEFT BREAST NODULAR AREA; DENSITY, CAT 3; ? MORE IMAGING; What Modality is the exam? Mammography; Body Part (please add comments as necessary): LEFT BREAST; I believe a reinterpretation of this exam may alter care of Patient. Yes. ?? COMPARISONS: 01/21/2016, 03/22/2014 FINDINGS: Bilateral screening mammogram: CC and MLO views were obtained of each breast. 2-D and 3- D tomosynthesis images were obtained. Computer aided detection was used. ??There are scattered areas of fibroglandular density. There are unreported but suspicious fine pleomorphic calcifications in a linear distribution in the left upper outer quadrant 2:00 radian middle third 6 cm from the nipple. The right breast is unremarkable. Specifically, compression and obliquity differences account for the areas of nodularity identified at the screening study. Bilateral diagnostic mammogram: Spot compression views of the left and right breast were performed. 2-D direct digital capture, 3-D tomosynthesis and computer aided detection (CAD) were used.. No suspicious underlying lesion is seen in the areas of nodularity. Bilateral breast ultrasound: Please note: Breast ultrasound is distribution collection operator dependent. Complete assessment of the breast tissue is not possible through static images or cine loops. Because breast ultrasound is a dynamic process the interpretive value of outside images is limited. ??Static images fail to depict any suspicious solid masses or areas of abnormal acoustical shadowing in either the right or the left breast. Procedure Note Leigh Cordon MD - 05/04/2018 INTERPRETATION OF OUTSIDE BREAST IMAGING I have been asked to consult on this patient by Magdaleno Mathur he/she believes a review of this study may change or alter the care ofthis patient. STUDIES FROM: [facility] DATES: 04/07/2018 screening mammogram, 04/20/2018 bilateral diagnostic mammogram, 04/20/2018 bilateral ultrasound CLINICAL HISTORY: LEFT BREAST NODULAR AREA; DENSITY, CAT 3; ? MOREIMAGING; What Modality is the exam? Mammography; Body Part (please add comments asnecessary): LEFT BREAST; I believe a reinterpretation of this exam may alter care of Patient. Yes. COMPARISONS: 01/21/2016, 03/22/2014 FINDINGS: Bilateral screening mammogram: CC and MLO views were obtained of eachbreast. 2-D and 3- D tomosynthesis images were obtained. Computer aided detectionwas used. There are scattered areas of fibroglandular density. There areunreported but suspicious fine pleomorphic calcifications in a linear distribution inthe left upper outer quadrant 2:00 radian middle third 6 cm from the nipple.The right breast is unremarkable. Specifically, compression and obliquity differences account for the areas of nodularity identified at thescreening study. Bilateral diagnostic mammogram: Spot compression views of the left andright breast were performed. 2-D direct digital capture, 3-D tomosynthesis and computer aided detection (CAD) were used.. No suspicious underlying lesionis seen in the areas of nodularity. Bilateral breast ultrasound: Please note: Breast ultrasound is distribution collection operator dependent. Complete assessment of the breast tissue is not possiblethrough static images or cine loops. Because breast ultrasound is a dynamicprocess the interpretive value of outside images is limited. Static images fail todepict any suspicious solid masses or areas of abnormal acoustical shadowing ineither the right or the left breast. IMPRESSION Suspicious un reported microcalcifications left upper outer quadrant 2:00radian middle third 6 cm from the nipple for which magnification imaging andcore biopsy would be recommended. Our facility will call this patient tocoordinate this follow-up. Left breast BI-RADS Category 0: Incomplete-Need Additional ImagingEvaluation and/or Prior Mammograms for Comparison Right breast BI-RADS Category 2: Benign Findings Please note: The interpretation of the [facility] BreastImaging Radiologist subspecialist may differ from the original radiologist's interpretation. This is usually not due to a deficiency of the original interpreting radiologist, rather due to the greater skill level affordedby sub-specialization in the field and/or reasonable variations ininterpretations. If you have a concern regarding the D-H interpretation you may contact the[facility] Regional Construction Manager Office at [phone]. 2:45 PM Avis Honeycutt APRN IMG OUTSIDE INTERPRE TATION ORDERABLES documented in this encounter Visit Diagnoses Diagnosis Breast density Other sign and symptom in breast documented in this encounter
--- OUTSIDE RECORDS SUMMARY | 2024-04-14 10:40 | XMS_ITS | Encounter Summary ---
Author Organization [facility] [place] [address] Care Team Providers Care Inhalation Therapist Name Role Phone Avis Honeycutt APRN Primary Care Provider [phone] Encounter Details Date Type Department Care Team (Late Contact Info) Description 05/12/2018 Orders Only [place] [phone] Frances Zee MD [facility] [place] [address] Social History Tobacco Use Types Packs/Day Years [...] 05/30/2024 10:00 AM EST Appointment Mammography/[place] [phone] Alicia Quinteros MD [facility] [place] [address] 08/11/2024 4:15 PM EST Office Visit Dermatology at [address] [place] [address] Jhon Giron MD [address], [place] [address] 11/21/2024 2:00 PM EDT Office Visit Radiation Oncology at [address] [phone] Alicia Quinteros MD [facility] [place] [address] 10/06/2029 Hospital Encounter [place] [phone] Al Mendez MD [facility] [address] Scheduled Procedures Name Priority Associated Diagnoses Date/Ti me @TOTAL KNEE REVISION ARTHROP LASTY, COMPLETE (WRVU 27.11) Instability Right TKA MODIFIER,GMK REVISION KNEE,MEDACTA Instability Right TKA documented as of this encounter Visit Diagnoses Not on filedocumented in this encounter Care Teams Inhalation Therapist Relationship Specialty Start Date End Date Avis Honeycutt APRN [address] [place] [address] PCP - General Family Medicine 05/27/18 12/17/20 documented as of this encounter
--- OUTSIDE RECORDS SUMMARY | 2024-04-14 10:40 | XMS_ITS | Encounter Summary ---
Author Organization [facility] [place] [address] Care Team Providers Care Space Planner Name Role Phone Unavailable Primary Care Provider Unavailabl e Encounter Details Date Type Department Care Team (Latest Contact Info) Description 05/10/2018 2:57 PM EST - 05/10/2018 11:59 PM EST Hospital [place] [address] Leigh Cordon MD [facility] [place] [address] Abnormal finding on breast imaging Discharge Disposition: [...] daily. 0 04/08/2018 01/15/2022 NARCAN 4 mg/actuation [place], Non-Aerosol 4 mg by Nasal route as needed. 0 11/30/2017 07/12/2018 documented as of this encounter Plan of Treatment Upcoming Encounters Date Type Department Care Team (Late st Contact Info) Description 05/30/2024 10:00 AM EST Appointment Mammography/[place] [phone] Alicia Quinteros MD [facility] [place] [address] 08/11/2024 4:15 PM EST Office Visit Dermatology at [address] [place] [phone] Jhon Giron MD [address] [place] [address] RD, [place] [address] 11/21/2024 2:00 PM EDT Office Visit Radiation Oncology at [address] [phone] Alicia Quinteros MD [facility] [place] [address] 10/06/2029 Hospital Encounter [place] [phone] Al Mendez MD [facility] [place] [address] Scheduled Procedures Name Priority Associated Diagnoses Date/Ti me @TOTAL KNEE REVISION ARTHROP LASTY, COMPLETE (WRVU 27.11) Instability Right TKA MODIFIER,GMK REVISION KNEE,MEDACTA Instability Right TKA documented as of this encounter Procedures Procedure Name Priority Date/Time Associated Diagnosis Comments MAMMO DIAGNOSTIC CAD LEFT Routine 05/10/2018 3:20 PM EST Abnormal finding on breast imaging documented in this encounter Results * Mammo Diagnostic Cad Left (05/10/2018 3:20 PM EST) Anatomical Region Laterality Modality Breast Left Mammography Addenda Addendum by Leigh Cordon MD on 06/24/2018 8:08 AM EST --------ADDENDUM #1-------- Please note: I reviewed this imaging. The clip is 2.5 cm lateral to the residual calcifications. Thank you for letting us participate in the care of this patient. For questions regarding this report, please contact the number below. ? Electronically signed by: Leigh Cordon [facility] ([phone]), at 06/24/2018 8:03 AM --------ORIGINAL REPORT -------- STEREOTACTIC GUIDED VACUUM ASSISTED BIOPSY OF THE LEFT BREAST CLINICAL HISTORY: abnormal finding 2.1 cm in largest dimension fine linear microcalcifications at the 2 o'clock Radian 5.7 cm from the nipple Procedural details: Informed consent was obtained and a time out procedure was performed per protocol. The patient gave permission to proceed. Using sterile technique and local anesthetic (less than 20cc's of 1% lidocaine) a biopsy was performed using tomographic guidance. Multiple core biopsy specimens were obtained using a 9g vacuum assist device. Multiple core biopsy specimens were obtained using a [employer]uro[employer] Eviva 9g device. Biopsy specimens were radiographed. ??The calcifications were present on the specimen digital radiograph. A Smark Eviva cylinder marker clip was placed. Cranio-caudal and lateral digital mammography was performed to determine biopsy marker placement. ??The marker was shown to be at the biopsy site. COMPLICATIONS: None. PROCEDURAL ATTESTATION: Resident: Quin An M.D. I was present during the entire procedure which was performed by the resident IMAGING DIFFERENTIAL DIAGNOSIS: DCIS, IDC, fibrocystic change PATHOLOGIC DIAGNOSIS: Ductal carcinoma in-situ, intermediate nuclear grade, micropapillary, clinging, and solid patterns with necrosis. IMPRESSION: Concordant and malignant result. RECOMMENDATION: Surgical excision as discussed with the patient and conveyed to the Comprehensive Breast Program. REVIEW PATH CONFERENCE?: No NOTE: Findings and recommendations were discussed with the patient on 05/12/2018. Comprehensive breast program was informed. I have personally reviewed the image(s) and the residents interpretation and agree with the findings, Jinny Gutierrez at 05/12/2018 5:12 PM Impressions 05/12/2018 5:12 PM EST Concordant and malignant result. RECOMMENDATION: Surgical excision as discussed with the patient and conveyed to the Comprehensive Breast Program. REVIEW PATH CONFERENCE?: No NOTE: Findings and recommendations were discussed with the patient on 05/12/2018. Comprehensive breast program was informed. I have personally reviewed the image(s) and the residents interpretation and agree with the findings, Jinny Gutierrez at 05/12/2018 5:12 PM Narrative 05/12/2018 5:12 PM EST STEREOTACTIC GUIDED VACUUM ASSISTED BIOPSY OF THE LEFT BREAST CLINICAL HISTORY: abnormal finding 2.1 cm in largest dimension fine linear microcalcifications at the 2 o'clock Radian 5.7 cm from the nipple Procedural details: Informed consent was obtained and a time out procedure was performed per protocol. The patient gave permission to proceed. Using sterile technique and local anesthetic (less than 20cc's of 1% lidocaine) a biopsy was performed using tomographic guidance. Multiple core biopsy specimens were obtained using a 9g vacuum assist device. Multiple core biopsy specimens were obtained using a [employer] Eviva 9g device. Biopsy specimens were radiographed. ??The calcifications were present on the specimen digital radiograph. A Smark Eviva cylinder marker clip was placed. Cranio-caudal and lateral digital mammography was performed to determine biopsy marker placement. ??The marker was shown to be at the biopsy site. COMPLICATIONS: None. PROCEDURAL ATTESTATION: Resident: Quin An M.D. I was present during the entire procedure which was performed by the resident IMAGING DIFFERENTIAL DIAGNOSIS: DCIS, IDC, fibrocystic change PATHOLOGIC DIAGNOSIS: Ductal carcinoma in-situ, intermediate nuclear grade, micropapillary, clinging, and solid patterns with necrosis. Procedure Note Jinny Gutierrez MD / Leigh Cordon MD - 05/12/2018 STEREOTACTIC GUIDED VACUUM ASSISTED BIOPSY OF THE LEFT BREAST CLINICAL HISTORY: abnormal finding 2.1 cm in largest dimension fine linear microcalcifications at the 2o'clock Radian 5.7 cm from the nipple Procedural details: Informed consent was obtained and a time out procedure was performedper protocol. The patient gave permission to proceed. Using sterile techniqueand local anesthetic (less than 20cc's of 1% lidocaine) a biopsy was performedusing tomographic guidance. Multiple core biopsy specimens were obtained using a9g vacuum assist device. Multiple core biopsy specimens were obtained using a Suros Eviva 9gdevice. Biopsy specimens were radiographed. The calcifications were present onthe specimen digital radiograph. A Smark Eviva cylinder marker clip was placed. Cranio-caudal and lateraldigital mammography was performed to determine biopsy marker placement. Themarker was shown to be at the biopsy site. COMPLICATIONS: None. PROCEDURAL ATTESTATION: Resident: Quin An M.D. I was present during the entire procedure which was performed by theresident IMAGING DIFFERENTIAL DIAGNOSIS: DCIS, IDC, fibrocystic change PATHOLOGIC DIAGNOSIS: Ductal carcinoma in-situ, intermediate nuclear grade, micropapillary,clinging, and solid patterns with necrosis. IMPRESSION Concordant and malignant result. RECOMMENDATION: Surgical excision as discussed with the patient and conveyed to the Comprehensive Breast Program. REVIEW PATH CONFERENCE?: No NOTE: Findings and recommendations were discussed with the patient on05/12/2018. Comprehensive breast program was informed. I have personally reviewed the image(s) and the residents interpretationand agree with the findings, Jinny Gutierrez at 05/12/2018 5:12 PM Leigh Cordon MD IMG MAMMO ORDERABL ES documented in this encounter Visit Diagnoses Diagnosis Abnormal finding on breast imaging Other (abnormal) findings on radiological examination of breast documented in this encounter
--- OUTSIDE RECORDS SUMMARY | 2024-04-14 10:40 | XMS_ITS | Encounter Summary ---
Author Organization [facility] [place] [address] Care Team Providers Care Manager Privacy Name Role Phone Unavailable Primary Care Provider Unavailabl e Encounter Details Date Type Department Care Team (Latest Contact Info) Description 04/20/2018 12:05 AM EST - 04/20/2018 11:59 PM EST Hospital Encounter Radiology Library at [facility] [place] [address] Avis Honeycutt APRN [address] [place] [address] Discharge Disposition: Home Social History Tobacco Use [...] 20 mg by mouth daily. 0 03/07/2018 hydroCHLOROthiazide (HYDRODIURIL) 50 mg Tablet Take 25 mg by mouth daily. 0 04/08/2018 01/15/2022 NARCAN 4 mg/actuation [place], Non-Aerosol 4 mg by Nasal route as needed. 0 11/30/2017 07/12/2018 documented as of this encounter Plan of Treatment Upcoming Encounters Date Type Department Care Team (Late st Contact Info) Description 05/30/2024 10:00 AM EST Appointment Mammography/[place] [address] Alicia Quinteros MD [facility] [place] [address] 08/11/2024 4:15 PM EST Office Visit Dermatology at [place] [address] [facility] [place] [phone] Jhon Girno MD [address], [place] [address] 11/21/2024 2:00 PM EDT Office Visit Radiation Oncology at [address] [phone] Alicia Quinteros MD [facility] [place] [address] 10/06/2029 Hospital Encounter [place] [phone] Al Mendez MD [facility] [place] [address] Scheduled Procedures Name Priority Associated Diagnoses Date/Ti me @TOTAL KNEE REVISION ARTHROP LASTY, COMPLETE (WRVU 27.11) Instability Right TKA MODIFIER,GMK REVISION KNEE,MEDACTA Instability Right TKA documented as of this encounter Procedures Procedure Name Priority Date/Time Associated Diagnosis Comments FILM LIBRARY-STORAGE ONLY US BREAST Routine 04/20/2018 12:05 AM EST documented in this encounter Results * Film Library Storage Only US Breast (04/20/2018 12:05 AM EST) Narrative RAD - 05/03/2018 3:41 PM EST This exam is for storage only and is auto-finalizing. Avis Honeycutt APRN IMG FILM LIBRARY ORD ERABLES [place], [place] documented in this encounter Visit Diagnoses Not on filedocumented in this encounter
--- OUTSIDE RECORDS SUMMARY | 2024-04-14 10:40 | XMS_ITS | Encounter Summary ---
Author Organization [facility] [place] [address] Care Team Providers Care Density Control Puncher Name Role Phone TangelaAvis LEVON Primary Care Provider [phone] Reason for Visit * Diagnostic Test (Routine) - Closed Specialty Diagnoses / Procedures Referred By Agus govea Referred To Contact Radiology Diagnoses Malignant neoplasm of left female breast, unspecified estrogen receptor status, unspecified site of breast Procedures MRI Breast wwo Contrast Frances Whitney MD [facility] [place] [address] [facility] [address] Referral ID Status Reason Start Date Expiration Date V isits Requested Visits Authorized [id number] Closed Specialty Service Requested 05/25/2018 07/23/2018 2 2 Encounter Details Date Type Department Care Team (Late st Contact Info) Description 05/27/2018 3:20 PM EST - 05/27/2018 11:59 PM EST Hospital [place] [address] Frances Zee MD [facility] [place] [address] Discharge Disposition: Home Social History Tobacco Use [...] daily. 0 04/08/2018 01/15/2022 NARCAN 4 mg/actuation [place], Non-Aerosol 4 mg by Nasal route as needed. 0 11/30/2017 07/12/2018 fish oil-omega-3 fatty acids 500 mg Capsule Take 120 mg by mouth. 02/06/2021 documented as of this encounter Plan of Treatment Upcoming Encounters Date Type Department Care Team (Late st Contact Info) Description 05/30/2024 10:00 AM EST Appointment Mammography/[place] [address] Alicia Quinteros MD [facility] [place] [address] 08/11/2024 4:15 PM EST Office Visit Dermatology at [place] [address] [place] [phone] Jhon Giron MD [address], [place] [address] 11/21/2024 2:00 PM EDT Office Visit Radiation Oncology at [address] [phone] Alicia Quinteros MD [facility] [place] [address] 10/06/2029 Hospital Encounter [place] [address] Al Mendez MD [facility] [place] [address] Scheduled Procedures Name Priority Associated Diagnoses Date/Ti [...] site of breast documented in this encounter Visit Diagnoses Not on filedocumented in this encounter Administered Medications Inactive Administered Medications - up to 3 most recent administrations Medication Order MAR Action Action Date Dose Rate Site gadoterate meglumine (DOTAREM) 0.5 mmol/mL (376.9 mg/mL) injection 0-100 mL 0-100 mL, Intravenous, ONCE PRN, 1 dose, Starting on Thu05/27/18 at 1622, Until Jessica 05/27/18 at 1623, Per Protocol, Radiology Contrast, Routine Given 05/27/2018 4:23 PM EST 25 mLs documented in this encounter Care Teams Density Control Puncher Relationship Specialty Start Date End Date Avis Honeycutt, LEV[place] [address] [place] [address] PCP - General Family Medicine 05/27/18 12/17/20 documented as of this encounter
--- OUTSIDE RECORDS SUMMARY | 2024-04-14 10:40 | XMS_ITS | Encounter Summary ---
Author Organization [facility] Address [facility] [place] [address] Care Team Providers Care Silk Screen Etcher Name Role Phone Unavailable Primary Care Provider Unavailabl e Encounter Details Date Type Department Care Team (Latest Contact Info) Description 04/20/2018 - 04/20/2018 12:04 AM EST Hospital Encounter Radiology Library at [facility] [place] [address] Avis Honeycutt, LEVON [address] [place] [address] Discharge Disposition: Home Social History Tobacco Use [...] daily. 0 04/08/2018 01/15/2022 NARCAN 4 mg/actuation [place], Non-Aerosol 4 mg by Nasal route as needed. 0 11/30/2017 07/12/2018 documented as of this encounter Plan of Treatment Upcoming Encounters Date Type Department Care Team (Late st Contact Info) Description 05/30/2024 10:00 AM EST Appointment Mammography/[place] [address] Alicia Quinteros MD [facility] [place] [address] 08/11/2024 4:15 PM EST Office Visit Dermatology at [place] [address] [place] [phone] Jhon Giron MD [address], [place] [address] 11/21/2024 2:00 PM EDT Office Visit Radiation Oncology at [address] [phone] Alicia Quinteros MD [facility] [place] [address] 10/06/2029 Hospital Encounter [place] [phone] Al Mendez MD [facility] [place] [address] Scheduled Procedures Name Priority Associated Diagnoses Date/Ti me @TOTAL KNEE REVISION ARTHROP LASTY, COMPLETE (WRVU 27.11) Instability Right TKA MODIFIER,GMK REVISION KNEE,MEDACTA Instability Right TKA documented as of this encounter Procedures Procedure Name Priority Date/Time Associated Diagnosis Comments FILM LIBRARY STORAGE ONLY MAMMO Routine 04/20/2018 12:00 AM EST documented in this encounter Results * Film Library- Storage Only Mammo (04/20/2018 12:00 AM EST) Narrative LAWRENCE GAO - 05/03/2018 3:40 PM EST This exam is for storage only and is auto-finalizing. Avis Honeycutt APRN IMG FILM LIBRARY ORD ERABLES Performing Organization Address City/State/[facility] Co de Phone Number [place], [place] documented in this encounter Visit Diagnoses Not on filedocumented in this encounter
--- OUTSIDE RECORDS SUMMARY | 2024-04-14 10:40 | XMS_ITS | Encounter Summary ---
Author Organization [facility] [place] [address] Care Team Providers Care Tile Installer Name Role Phone Unavailable Primary Care Provider Unavailabl e Encounter Details Date Type Department Care Team (Latest Contact Info) Description 05/10/2018 2:57 PM EST - 05/10/2018 11:59 PM EST Hospital Encounter [place] [address] Leigh Cordon MD [facility] [place] [place] [address] Abnormal finding on breast imaging Discharge Disposition: [...] daily. 0 04/08/2018 01/15/2022 NARCAN 4 mg/actuation [place], Non-Aerosol 4 mg by Nasal route as needed. 0 11/30/2017 07/12/2018 documented as of this encounter Progress Notes * Quin An MD - 05/10/2018 8:58 AM EST Pre-procedure note for needle breast biopsies performed in radiology. Procedure date: Today Procedure type: left breast stereotactic biopsy Allergies: Patient has no allergy information on record. Medications: No current outpatient medications on file. Anticoagulation status: none stopped on: N/A Imaging reviewed and procedural plan approved by Dr. Jinny Gutierrez. Quin An MD Radiology, PGY-5 Pager [phone] documented in this encounter Plan of Treatment Upcoming Encounters Date Type Department Care Team (Late st Contact Info) Description 05/30/2024 10:00 AM EST Appointment Mammography/[place] [address] Alicia Quinteros MD [facility] [place] [place] [address] 08/11/2024 4:15 PM EST Office Visit Dermatology at [address] [place] [phone] Jhon Giron MD [address], [place] [address] 11/21/2024 2:00 PM EDT Office Visit Radiation Oncology at [address] [phone] Alicia Quinteros MD [facility] [place] [address] 10/06/2029 Hospital Encounter Main Operating Room [facility] [place] [address] Al Mendez MD [facility] [place] [address] Scheduled Procedures Name Priority Associated Diagnoses Date/Ti me @TOTAL KNEE REVISION ARTHROP LASTY, COMPLETE (WRVU 27.11) Instability Right TKA MODIFIER,GMK REVISION KNEE,MEDACTA Instability Right TKA documented as of this encounter Procedures Procedure Name Priority Date/Time Associated Diagnosis Comments MAMMO STEREOTACTIC BIOPSY LEFT Routine 05/10/2018 4:01 PM EST Abnormal finding on breast imaging SURGICAL PATHOLOGY REPORT Routine 05/10/2018 3:52 PM EST SPECIMEN TO PATHOLOGY Routine 05/10/2018 3:52 PM EST documented in this encounter Results * Mammo Stereotactic Biopsy Left (05/10/2018 4:01 PM EST) Anatomical Region Laterality Modality Breast N/A Mammography Addenda Addendum by Leigh Cordon MD on 06/24/2018 8:08 AM EST --------ADDENDUM #1-------- Please note: I reviewed this imaging. The clip is 2.5 cm lateral to the residual calcifications. Thank you for letting us participate in the care of this patient. For questions regarding this report, please contact the number below. ? --------ORIGINAL REPORT -------- STEREOTACTIC GUIDED VACUUM ASSISTED [...] core biopsy specimens were obtained using a [employer] Eviva 9g device. Biopsy specimens were radiographed. ??The calcifications were present on the specimen digital radiograph. A [employer] Eviva cylinder marker clip was placed. Cranio-caudal [...] findings, Jinny Gutierrez at 05/12/2018 5:12 PM Electronically signed by: Jinny Gutierrez [facility] ([phone]), at 05/12/2018 5:12 PM Impressions 05/12/2018 5:12 [...] present on the specimen digital radiograph. A [employer] Eviva cylinder marker clip was placed. Cranio-caudal [...] Leigh Cordon MD IMG MAMMO ORDERABL ES * Surgical Pathology Report (05/10/2018 3:52 PM EST) Final Diagnosis [id number] ? Location: 3L The signing pathologist has (i) examined the relevant preparation(s) for the specimen(s) and (ii) rendered or confirmed the diagnosis(es). . ? Addendum ADDENDUM DISCUSSION Immunohistochemis try Studies Specimen: Left breast, core needle biopsy (A1) ER immunoreactivity: Positive ( ??>90% cancer cells with immunostaining) Stain intensity: Strong MO immunoreactivity: Positive (90% cancer cells with immunostaining) Stain intensity: Strong ? *Diagnostic lima for hormone receptors (ASCO/CAP GUIDELINES, 2010): ?Negative immunoreactivity: ?? <1% tumor cells with immunostaining ?Positive immunoreactivity: ?? >=1% tumor cells with immunostaining Immunohistochemic al assays were performed on paraffin-embedded tissue sections fixed in 10% neutral buffered formalin for 6-72 hours using the polymer system technique with appropriate controls. The assays were performed according to the mother superior ? 's instructions using Anti-ER (SP1) and Anti-MO (16) antibodies. Electronically signed by: ??Kevin Macias MD Verified: ??05/12/2018 ?Pathologist Performed at: ??-[facility] Dept. of Pathology, [place], [place] ?Surgical Pathology DIAGNOSIS Needle biopsies: ?Left breast Diagnosis: ?Ductal carcinoma in-situ, intermediate nuclear grade, micropapillary, clinging, and solid patterns with necrosis (see discussion) Microcalcificatio ns: ??Associated with ductal carcinoma in-situ Electronically signed by: ??Kevin Macias MD Verified: ??05/11/2018 ?Pathologist Performed at: ??-[facility] Dept. of Pathology, [place], [place] DISCUSSION Studies for ER and MO have been ordered; results will be issued in an addendum. Additional levels (A1, A2) were examined. CLINICAL INFORMATION Specimen Submitted: A - Left breast stereo bx 9g with and without calcs Clinical History and Diagnosis: Calcifications. DCIS, FCC. Report to: Please send results to Bhaskar Morales at [facility]. SPECIMEN PROCESSING A - Received in two containers: . SPECIMEN PROCESSING 1 - Labeled/Fixative: Calcs, formalin Quantity/Size: Fragments, from 0.3 cm in diameter to 3.2 x 0.3 cm. Tissue Description: Yellow fibrofatty needle core biopsies. Submitted in: A1-A2 2 - Labeled/Fixative: No calcs, formalin. Quantity/Size: Fragments, aggregating 2.1 x 1.5 x 0.3 cm. Tissue Description: Yellow fragmented fibrofatty needle core biopsies. Submitted in: A3-A5 Sections/Processi ng: Entirely submitted in 5 cassettes labeled A1-A5. Ischemic Time: Three minutes ??pps 05/12/2018 4:31 PM EST [facility] BREAST STRUCTURE / Unknown 05/10/2018 3:52 PM EST 05/10/2018 3:52 PM EST Jinny Gutierrez MD PATHOLOGY/CYTOLOGY O SHARRI Performing Organization Address [facility] [place] [address] * Specimen to Pathology (05/10/2018 3:52 PM EST) AP Specimen 05/10/2018 3:52 PM EST 05/10/2018 3:52 PM EST Narrative [facility] - 05/10/2018 3:52 PM EST Specimen requisition ordered. ??Separate Pathology report to follow Jinny Gutierrez MD PATHOLOGY/CYTOLOGY O TrackYANA Performing Organization Address [facility] [place] [address] documented in this encounter Visit Diagnoses Diagnosis Abnormal finding on breast imaging Other (abnormal) findings on radiological examination of breast documented in this encounter Administered Medications Inactive Administered Medications - up to 3 most recent administrations Medication Order MAR Action Action Date Dose Rate Site lidocaine (XYLOCAINE) 10 mg/mL (1 %) injection 20 mg 20 mg, Intradermal, ONCE, 1 dose, On 05/10/18 at 1545, Routine Given 05/10/2018 3:55 PM EST 20 mg documented in this encounter
--- OUTSIDE RECORDS SUMMARY | 2024-04-14 10:40 | XMS_ITS | Encounter Summary ---
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 Phone Unavailable Primary Care Provider Unavailabl e Encounter Details Date Type Department Care Team (Late st Contact Info) Description 05/13/2018 Telephone Hematology [place] [phone] Audrey Shannon RN Social History Tobacco Use Types Packs/Day Years Used Date Smoking Tobacco: Never Assessed Sex and Gender Information Value Date Recorded Sex Assigned at Female 07/24/2020 2:32 PM EST Gender Identity Not on file Sexual Orientation Straight 07/24/2020 2: 32 PM EST documented as of this encounter Miscellaneous Notes * Telephone Encounter - Audrey Shannon RN - 05/13/2018 6:01 PM EST Comprehensive Breast Program (CBP) Note Date of call: 05/17 (05/13 left message) ?? Reason for call: Contacted patient after Dr. Gutierrez informed her that her breast biopsy results indicated she has ductal carcinoma in situ, to introduce her to the CBP. Quin Santana is a 52 y.o. female with newly diagnosed ER/AR+ left breast DCIS (left breast stereotactic guided biopsy 05/10/[address] [facility]). Quin sounds positive and has support. A friend will accompany her to appointments. She appears to be coping well but is anxious to meet with a breast surgeon to determine a treatment plan. 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 Quin states her 46 yo sister is due to have a baby (ever risk ) on 05/25. She may travelto where her immediate family lives, in [place], over the holidays. She is interested in having a trained volunteer from [employer] ([employer] patient support[employer] accompany her to provider appts. Requested someone from [employer] meet with her at her consultation and contact her to review her list of questions pre-consultation. Plan: Appointments for breast MRI and surgical consult with a breast surgeon have been scheduled. She was introduced to the CBP and told she would receive information about her diagnosis and treatment for her review (the Breast Cancer Treatment Handbook; link and access code to the [facility] Ductal Carcinoma in Situ (DCIS): Surgical Treatment Options program provided). Plan to meet with Quin on theday of her consult apt. Addressed her questions and encouraged her to contact me with any additional questions or concerns.She has our contact information. Laterality:Left Is this a recurrence:No Family history of breast cancer:No Family history of ovarian cancer: No Personal history or breast cancer:No Method of detection: Mammogram Method of diagnosis: Stereotactic Biopsy documented in this encounter Plan of Treatment Upcoming Encounters Date Type Department Care Team (Late st Contact Info) Description 05/30/2024 10:00 AM EST Appointment Mammography/[place] [address] Alicia Quinteros MD [facility] [place] [address] 08/11/2024 4:15 PM EST Office Visit Dermatology at [place] [address] [facility] [place] [phone] Jhon Giron MD [address] [facility] [place] [address] 11/21/2024 2:00 PM EDT Office Visit Radiation Oncology at [address] [phone] Alicia Quinteros MD [facility] [place] [address] 10/06/2029 Hospital Encounter [place] [phone] Al Mendez MD [facility] [place] [address] Scheduled Procedures Name Priority Associated Diagnoses Date/Ti me @TOTAL KNEE REVISION ARTHROP LASTY, COMPLETE (WRVU 27.11) Instability Right TKA MODIFIER,GMK REVISION KNEE,MEDACTA Instability Right TKA documented as of this encounter Visit Diagnoses Not on filedocumented in this encounter
--- OUTSIDE RECORDS SUMMARY | 2024-04-14 10:40 | XMS_ITS | Encounter Summary ---
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 Role Phone Unavailable Primary Care Provider Unavailabl e Encounter Details Date Type Department Care Team (Latest Contact Info) Description 01/21/2016 - 01/21/2016 11:59 PM EDT Hospital Encounter Radiology Library at [facility] [place] [address] Avis Honeycutt APRN [address] [place], [place] [phone] Discharge Disposition: Home Social History Tobacco Use [...] 05/30/2024 10:00 AM EST Appointment Mammography/DXA at [facility] [place] [phone] Alicia Quintreos MD [facility] [place] [address] 08/11/2024 4:15 PM EST Office Visit Dermatology at [address] [place] [address] Jhon Giron MD [address], [place] [address] 11/21/2024 2:00 PM EDT Office Visit Radiation Oncology at [address] [phone] Alicia Quinteros MD [facility] [place] [address] 10/06/2029 Hospital Encounter [place] [phone] Al Mendez MD [facility] [place] [address] Scheduled Procedures Name Priority Associated Diagnoses Date/Ti me @TOTAL KNEE REVISION ARTHROP LASTY, COMPLETE (WRVU 27.11) Instability Right TKA MODIFIER,GMK REVISION KNEE,MEDACTA Instability Right TKA documented as of this encounter Procedures Procedure Name Priority Date/Time Associated Diagnosis Comments FILM LIBRARY STORAGE ONLY MAMMO Routine 01/21/2016 12:00 AM EDT documented in this encounter Results * Film Library- Storage Only Mammo (01/21/2016 12:00 AM EDT) Narrative [facility] - 05/03/2018 3:44 PM EST This exam is for storage only and is auto-finalizing. Avis Honeycutt APRN IMG FILM LIBRARY ORD ERABLES [place], [place] documented in this encounter Visit Diagnoses Not on filedocumented in this encounter
--- NOTE | 2024-04-14 11:07 | DI.RAD_ITS ---
Exam(s) XR HUMERUS RT EXAM: XR HUMERUS RT CLINICAL HISTORY: fall, pain. TECHNIQUE: 2D digital imaging was performed of the right humerus. Two images were obtained. AP and lateral views were obtained. COMPARISON: No exams were available for comparison FINDINGS: BONES: No acute fracture is present. No bony destructive lesion is seen. Visualized portion of elbow and shoulder joints are unremarkable. SOFT TISSUE: Normal. IMPRESSION: No acute fracture or dislocation. DATA REPOSITORY: RADIATION DOSE DELIVERED:
[2024-04-14 12:26] VITALS: BP 115/82; PULSE 108; RESP 18; TEMP 36.6; O2SAT 98
== END 2024-04-14 12:26 | disposition home or self-care (01) ==
PROVIDERS: Emergency Provider Student in an Organized Health Care Education/Training Program; PCP Student in an Organized Health Care Education/Training Program
DX: S40.021A Contusion of right upper arm, initial encounter (principal); W10.9XXA Fall (on) (from) unspecified stairs and steps, initial encounter
CPT/HCPCS: 99283; 73060

== ENCOUNTER 2024-07-12 08:57 | Outpatient (CLI) | payer OTHER, SELFPAY ==
--- NOTE | 2024-07-12 16:36 | DI.RAD_ITS ---
Exam(s) XR CERVICAL SPINE COMP 4-5V EXAM: XR CERVICAL SPINE COMP 4-5V CLINICAL HISTORY: paresthesia or right upper limb, R20.2. TECHNIQUE: 2D digital imaging was performed. Six images were obtained. AP, odontoid, lateral and sy ateral oblique images were obtained. COMPARISON: No exams were available for comparison FINDINGS: The odontoid is intact. The lateral masses are well aligned. There is straightening of the normal ce rvical lordosis which may be due to muscle spasm or patient positioning. There are endplate osteophy madeline at several levels of the cervical spine. There are degenerative changes of the facets seen throu ghout the spine. No acute fracture or subluxation is present. There is neural foraminal narrowing bi laterally from C4-5 through C6-C7. The findings are most marked at C5-6 and C6-C7. The cervical thor acic junction is well maintained. The prevertebral soft tissues are unremarkable. Lung apices are cl ear. IMPRESSION: Moderate cervical spondylosis. DATA REPOSITORY: RADIATION DOSE DELIVERED:
--- NOTE | 2024-07-12 16:36 | DI.RAD_ITS ---
Exam(s) XR SHOULDER RT COMPLETE 2+V EXAM: XR SHOULDER RT COMPLETE 2+V CLINICAL HISTORY: pain of right shoulder joint, M25.511. TECHNIQUE: 2D digital imaging was performed of the right shoulder. Four images were obtained. AP, Grashey and Y views were obtained. COMPARISON: CR XR HUMERUS RT from 04/14/2024 FINDINGS: BONES: No acute fracture is present. No bony destructive lesion is seen. JOINTS: No dislocation present. There are mild degenerative changes seen at the glenohumeral joint. SOFT TISSUE: There are stable calcifications seen lateral to the acromion. IMPRESSION: Mild degenerative changes seen in the shoulder. DATA REPOSITORY: RADIATION DOSE DELIVERED:
== END 2024-07-12 09:17 ==
PROVIDERS: PCP Student in an Organized Health Care Education/Training Program; Visit Provider Student in an Organized Health Care Education/Training Program
DX: M25.511 Pain in right shoulder (principal); M47.892 Other spondylosis, cervical region
CPT/HCPCS: 72050; 73030

== ENCOUNTER 2024-07-12 16:59 | Outpatient (CLI) | payer OTHER, SELFPAY ==
[2024-07-12 17:01] LABS: Abs Immature Grans 0.03 10^3/uL (0.0-0.06); Absolute Basophil Count 0.04 10^3/uL (0.0-0.2); Absolute Eosinophil Count 0.01 10^3/uL (0.0-0.7); Absolute Lymphocyte Count 1.17 10^3/uL (1.2-3.4); Absolute Monocyte Count 0.27 10^3/uL (0.1-0.8); Absolute Neutrophil Count 8.09 10^3/uL (1.2-6.7); Basophils % 0.4 %; Eosinophils % 0.1 %; HCT 38.9 % (36.0-46.0); HGB 12.5 g/dL (11.2-15.7); Immature Grans % 0.3 %; Lymphocytes % 12.2 %; MCH 28.4 pg (27.0-33.0); MCHC 32.1 % (32.0-36.0); MCV 88 fL (80-95); MPV 10.3 fL (8.0-11.0); Monocytes % 2.8 %; Neutrophils % 84.2 %; Platelet Count 320 10^3/uL (130-400); RDW 14.3 % (11.7-14.6); WBC 9.61 10^3/uL (4.4-10.8)
[2024-07-12 17:03] LABS: ESR 18 mm/hr (0-30)
[2024-07-12 17:27] LABS: C-Reactive Protein < 0.50 mg/dL (<or=0.5)
[2024-07-13 20:03] LABS: Rheumatoid Factor <8.6 IU/mL (<12.0)
[2024-07-14 09:18] LABS: Cyclic Citrullinated Peptide <2.5 U/mL (<5.0)
== END 2024-07-12 17:00 | disposition home or self-care (01) ==
LOC: LBO 16:59
PROVIDERS: PCP Student in an Organized Health Care Education/Training Program; Visit Provider Student in an Organized Health Care Education/Training Program
DX: M25.511 Pain in right shoulder (principal)
CPT/HCPCS: 36415; 85652; 86200; 85025; 86140; 86431

== ENCOUNTER 2024-08-08 01:17 | Outpatient (CLI) | payer OTHER, SELFPAY ==
--- NOTE | 2024-08-08 10:45 | DI.MRI_ITS ---
Exam(s) MR CERVICAL SPINE WO EXAM: MR CERVICAL SPINE WO CLINICAL HISTORY: SPONDYLOSIS W/ MYELOPATHY, CERVICAL REGION M47.12 XR MODERATE SPONDYLOSIS, TECHNIQUE: Multiplanar multisequence MRI of the cervical spine was performed without intravenous con trast. COMPARISON: CR XR CERVICAL SPINE COMP 4-5V from 07/12/2024 FINDINGS: CERVICOMEDULLARY JUNCTION: Intact with no evidence of cerebellar tonsillar ectopia. No obvious abnor mality of the odontoid process. No evidence of Chiari 1 malformation. CERVICAL SPINAL CORD: There is no abnormal signal in the cervical spinal cord and no evidence of foca l cord atrophy nor focal cord swelling. OSSEOUS:There are no cervical fractures evident. No significant osseous lesions in the cervical vert ebrae. There is abnormal straightening of the cervical curvature INDIVIDUAL LEVELS: C2-3: No disc herniation nor central canal stenosis. Some facet arthropathy noted on the left side. Right facet joint unremarkable. No significant foraminal stenosis evident at this level. C3-4: Slightly decreased disc height. Posteriorly there is relatively symmetrical annular bulging wi th partial effacement of the anterior thecal sac but not the spinal cord. Central canal dimensions a re lower normal.There are some moderate degenerative changes in the right facet joint.. No obvious d egenerative changes in the left facet joint. There is no significant foraminal stenosis on either si de. C4-5: This level exhibits chronic moderate-advanced disc space narrowing. Anterior osseous lipping n oted. Posteriorly there is broad annular bulging with effacement of the anterior thecal sac and ther e are bilateral Luschka joint osteophytes at this level. Moderate degenerative changes are noted in the left facet joint at this level. Only minimal degenerative change in the right facet joint. Mild -moderate bilateral foraminal stenosis. C5-6: This level also exhibits moderate-advanced chronic disc space narrowing. Posteriorly there is broad relatively symmetrical annular bulging and bilateral Luschka joint osteophytes. There is effac ement of the anterior thecal sac but not the spinal cord. The AP measurement of the canal at this le marva is 8.5 mm with mild central canal stenosis. There are only mild degenerative changes in the face t joints at this level. There is moderate bilateral foraminal stenosis. C6-7: This level also exhibits advanced chronic disc space narrowing. Posteriorly there is broad justin ular bulging and bilateral Luschka joint osteophytes. There is effacement of the anterior thecal sac at this level also noted. The AP measurement of the canal is 8.5 mm. Mild central canal stenosis. The facet joints at this level appear unremarkable. . There is only mild bilateral foraminal steno sis at this level. C7-T1: No disc herniation nor central canal stenosis. No facet arthropathy.No foraminal stenosis. IMPRESSION: 1. There is multilevel mild central spinal canal stenosis at C4-5, C5-6, and C6-7 levels due to broad annular bulging and bilateral Luschka joint osteophytes at these levels. There is no distinct domin ant focal disc herniation. 2. There is mild-moderate bilateral foraminal stenosis at C4-5 and C5-6 levels. There is mild bilate ral foraminal stenosis at C6-7 level. The foraminal stenosis is predominately related to bilateral L uschka joint osteophytes at the lower 3 levels 3. There is multilevel asymmetric moderate facet arthropathy in addition to bilateral Luschka joint o steophytes. 4. There is no abnormal signal within the cervical spinal cord and no evidence of focal cord swellin g, atrophy, nor syringomyelia. No evidence of cerebellar tonsillar ectopia. DATA REPOSITORY:
== END 2024-08-08 01:37 ==
LOC: DI 01:17
PROVIDERS: PCP Student in an Organized Health Care Education/Training Program; Visit Provider Student in an Organized Health Care Education/Training Program
DX: M47.12 Other spondylosis with myelopathy, cervical region (principal)
CPT/HCPCS: 72141

== ENCOUNTER 2024-09-27 16:40 | Outpatient (REF) | payer OTHER, SELFPAY ==
[2024-09-27 15:54] LABS: Microalb ug/mg Crea 11.7 ug/mg Cr
[2024-09-27 16:34] LABS: Anion Gap 7.5 mmol/L (3-11); BUN 17 mg/dL (7-18); CO2 26.5 mmol/L (21.0-32.0); CREATININE 0.8 mg/dL (0.55-1.02); Calcium 10.5 mg/dL (8.5-10.1); Chloride 108 mmol/L (98-107); Estimated GFR 84.82 (mL/min/1.73m2); Glucose 109 mg/dL (74-106); Potassium 4.1 mmol/L (3.5-5.1); Sodium 142 mmol/L (136-145); Vitamin B12 406 pg/mL (193-986)
[2024-09-28 10:09] LABS: HIV-1/2 Ag & Ab Screen Negative (Negative)
== END 2024-09-27 16:41 | disposition home or self-care (01) ==
LOC: NCHCN 16:40
PROVIDERS: PCP Student in an Organized Health Care Education/Training Program; Visit Provider Student in an Organized Health Care Education/Training Program
DX: I10 Essential (primary) hypertension (principal); K21.9 Gastro-esophageal reflux disease without esophagitis; Z11.4 Encounter for screening for human immunodeficiency virus [HIV]
CPT/HCPCS: 80048; 87389; 82043; 82570; 82607

== ENCOUNTER 2024-10-05 15:17 | Outpatient (CLI) | payer OTHER, SELFPAY ==
[2024-10-05 15:44] LABS: Abs Immature Grans 0.02 10^3/uL (0.0-0.06); Absolute Basophil Count 0.03 10^3/uL (0.0-0.2); Absolute Eosinophil Count 0.14 10^3/uL (0.0-0.7); Absolute Lymphocyte Count 2.01 10^3/uL (1.2-3.4); Absolute Neutrophil Count 4.06 10^3/uL (1.2-6.7); Basophils % 0.4 %; HCT 37.8 % (36.0-46.0); HGB 12.3 g/dL (11.2-15.7); Immature Grans % 0.3 %; Lymphocytes % 29.3 %; MCH 28.3 pg (27.0-33.0); MCHC 32.5 % (32.0-36.0); MCV 87 fL (80-95); MPV 10.2 fL (8.0-11.0); Monocytes % 8.7 %; Neutrophils % 59.3 %; Platelet Count 270 10^3/uL (130-400); RBC 4.34 10^6/uL (3.93-5.22); RDW 13.7 % (11.7-14.6); RDW-SD 43.7 fL; WBC 6.86 10^3/uL (4.4-10.8)
== END 2024-10-05 15:18 | disposition home or self-care (01) ==
LOC: LBO 15:17
PROVIDERS: PCP Student in an Organized Health Care Education/Training Program; Visit Provider Student in an Organized Health Care Education/Training Program
DX: I10 Essential (primary) hypertension (principal)
CPT/HCPCS: 36415; 85025

== ENCOUNTER 2025-02-09 15:09 | Outpatient (CLI) | payer OTHER, SELFPAY ==
--- NOTE | 2025-02-09 | DI.RAD_ITS ---
Exam(s) XR KNEE RT 3V AP,LAT,CARMEN EXAM: XR KNEE RT 3V AP,LAT,CARMEN CLINICAL HISTORY: PAIN RT KNEE M25.561 COLLISION DOG INTO ASPECT RT KNEE COUPLE INCHES BELOW. TECHNIQUE: 2D digital imaging was performed. Three views. COMPARISON: CR RIGHT KNEE LIMITED 1 OR 2 VIEW from 11/25/2017 FINDINGS: BONES: No acute fracture is present. No bony destructive lesion is seen. JOINTS: The knee prosthesis is normally aligned. No joint effusion is seen. SOFT TISSUE: Normal. IMPRESSION: No acute abnormality. No change in total knee prosthesis. DATA REPOSITORY: RADIATION DOSE DELIVERED:
[2025-02-09 16:24] LABS: Calculated LDL 90 mg/dL (<100); Cholesterol 158 mg/dL (<200); HDL Cholesterol 40 mg/dL (>or=50); Triglyceride 141 mg/dL (<150)
== END 2025-02-09 15:29 ==
PROVIDERS: PCP Student in an Organized Health Care Education/Training Program; Visit Provider Student in an Organized Health Care Education/Training Program
DX: M25.561 Pain in right knee (principal)
CPT/HCPCS: 36415; 73562; 80061